=== PATIENT | male | born 1945 | race Caucasian/White ===

== ENCOUNTER 2016-10-27 08:20 | Day surgery (SDC) | payer MEDICARE, BC ==
[2016-10-22 15:00] VITALS: BMI 38.0
[~2016-10-27 08:20] MED LIST: LACTATED RINGERS 1,000 ML IV SCH
[2016-10-27 09:07] VITALS: TEMP 98.2
[2016-10-27] MEDS ORDERED: LIDOCAINE 1% 20 ML VIAL (10MG/ML) FOR IV START INTRADERMA ONE (09:07)
[2016-10-27] MEDS ORDERED: GLYCOPYRROLATE 0.2 MG/ML 2 ML VIAL ONE (09:48)
[2016-10-27] MEDS ORDERED: LIDOCAINE 1% INJ 10MG/ML (20 ML MDV) ONE (09:48)
[2016-10-27] MEDS ORDERED: PROPOFOL 10 MG/ML 20 ML VIAL IV ONE (09:48)
--- NOTE | 2016-10-27 10:20 | P.PCN ---
Date of Procedure: 10/27/16 Procedure(s) Performed: Procedure: Esophagogastroduodenoscopy and biopsy. Preoperative diagnosis: Chronic reflux symptoms, intermittent diarrhea and history of Prabhakar's esophagus. Postoperative diagnosis: 1. Long segment of Prabhakar's and hiatal hernia. 2. Gastritis. 3. Multiple biopsies obtained. Preparation and sedation: Was provided by anesthesia. Brief clinical history: The patient is a 70-year-old male with chronic reflux symptoms who has been symptomatic with heartburn. The patient has history of Prabhakar's esophagus and his last EGD was around 2 years ago. He has no dysphagia or other alarm symptoms. Procedure: With the patient on his left lateral decubitus position and after informed consent and adequate sedation, I passed the Olympus-GIF 160 video upper endoscope through the cricopharyngeus down the esophagus. The sravani-GE junction was around 31 cm from the incisors and the tubular esophagus continued for around 40 cm from the incisors. There was a sliding hiatal hernia around 2 cm in size then the endoscope was advanced into the stomach which was insufflated with air and inspected in detail including the retroflex view in the cardia. There was some mottling and erythema in the antrum but no ulcers or erosions. Pyloric channel, duodenal bulb, post bulbar area and descending duodenum showed minimal erythema. I obtained multiple biopsies from the duodenum in addition to biopsies from the antrum and the Prabhakar's esophagus and from the esophagus proximal to the GE junction then the endoscope was withdrawn. The patient tolerated the procedure well. Plan: The patient was reassured. Will await biopsy results. I anticipate repeating this exam in 1-2 years. He will follow up with you as planned.
[2016-10-27 10:28] VITALS: BP 100/78; PULSE 65; RESP 18
== END 2016-10-27 10:55 | disposition home or self-care (01) ==
LOC: ORWHC2ENDO 08:20
DX: K21.0 Gastro-esophageal reflux disease with esophagitis (principal); K22.70 Barrett's esophagus without dysplasia; K44.9 Diaphragmatic hernia without obstruction or gangrene; K29.50 Unspecified chronic gastritis without bleeding; I10 Essential (primary) hypertension; E78.5 Hyperlipidemia, unspecified; I25.10 Atherosclerotic heart disease of native coronary artery without angina pectoris; N28.9 Disorder of kidney and ureter, unspecified; Z79.899 Other long term (current) drug therapy; J44.9 Chronic obstructive pulmonary disease, unspecified; J45.909 Unspecified asthma, uncomplicated; M19.90 Unspecified osteoarthritis, unspecified site; G47.33 Obstructive sleep apnea (adult) (pediatric); Z95.1 Presence of aortocoronary bypass graft; Z88.8 Allergy status to other drugs, medicaments and biological substances
CPT/HCPCS: 88305; 88342; 43239; J2001; J2704; 99153

== ENCOUNTER 2019-06-17 08:24 | Day surgery (SDC) | payer MEDICARE, BC, OTHER ==
[2019-06-15 10:21] VITALS: BMI 36.9
[~2019-06-17 08:24] MED LIST changes: +LIDOCAINE 1% 20 ML VIAL (10MG/ML) FOR IV START INTRADERMA PRN
[2019-06-17 08:49] VITALS: TEMP 98.2
[2019-06-17] MEDS ORDERED: PROPOFOL 10 MG/ML 20 ML VIAL IV ONE (09:28)
[2019-06-17] MEDS ORDERED: LIDOCAINE 1% INJ 10MG/ML (20 ML MDV) ONE (09:28)
[2019-06-17 10:03] VITALS: BP 147/77; PULSE 79; RESP 16
--- NOTE | 2019-06-17 10:11 | P.PCN ---
Date of Procedure: 06/17/19 Procedure(s) Performed: BRIEF HISTORY: Patient is a 73-year-old, pleasant, white female, scheduled for an upper endoscopy as a part of evaluation of long-standing history of GERD of several years duration. His last upper endoscopy was done by Dr. Nam 2 years ago. He denies any symptoms.. PROCEDURE PERFORMED: Esophagogastroduodenoscopy With biopsy PREOPERATIVE DIAGNOSIS: Long-standing history of GERD/Prabhakar's esophagus IV sedation per anesthesia. PROCEDURE: After informed consent was obtained, the patient was brought into the endoscopy unit. IV sedation was administered by Anesthesia under continuous monitoring. Initially the Olympus GIF-140 video endoscope was inserted into the mouth. Esophagus intubated without any difficulty. It was gradually advanced into the stomach and duodenum and carefully examined. The bulb and the second part of the duodenum appeared normal. The scope at this time was withdrawn to the stomach, adequately insufflated with air, and upon careful examination, mucosa of the antrum, body, cardia and the fundus appeared normal. multiple small gastric polyps identified in the proximal body the stomach which were biopsied. The scope was then withdrawn into the esophagus. The GE junction was located at 43 cm from the incisors. Small sliding Hiatal hernia noted. There was long segment of Prabhakar's esophagus extending from 33-43 cm from the incisors and multiple biopsies were done from the Prabhakar's esophagus to rule out dysplasia. The rest of theesophagus appeared normal. There were no erosions or ulcerations seen and the patient tolerated the procedure well. IMPRESSION: 1. Long segment Prabhakar's esophagus extending from 33-43 cm from the incisors status post multiple biopsies to rule out dysplasia 2. Small hiatal hernia 3. Multiple small gastric polyps. RECOMMENDATIONS: The findings of this examination were discussed with the patient as well as her family. He was advised to follow with the biopsy results. If the biopsy does not have any evidence of dysplasia, he can have a repeat upper endoscopy in 2 years.
== END 2019-06-17 10:50 | disposition home or self-care (01) ==
LOC: ORWHC2ENDO 08:24
PROVIDERS: ATTEND Internal Medicine Gastroenterology
DX: K22.70 Barrett's esophagus without dysplasia (principal); K29.50 Unspecified chronic gastritis without bleeding; K31.7 Polyp of stomach and duodenum; K44.9 Diaphragmatic hernia without obstruction or gangrene; K21.9 Gastro-esophageal reflux disease without esophagitis; I25.10 Atherosclerotic heart disease of native coronary artery without angina pectoris; I12.9 Hypertensive chronic kidney disease with stage 1 through stage 4 chronic kidney disease, or unspecified chronic kidney disease; N18.9 Chronic kidney disease, unspecified; E78.5 Hyperlipidemia, unspecified; J44.9 Chronic obstructive pulmonary disease, unspecified; M10.9 Gout, unspecified; N40.0 Benign prostatic hyperplasia without lower urinary tract symptoms; G47.33 Obstructive sleep apnea (adult) (pediatric); Z88.8 Allergy status to other drugs, medicaments and biological substances; Z95.5 Presence of coronary angioplasty implant and graft; Z79.899 Other long term (current) drug therapy; Z95.828 Presence of other vascular implants and grafts
CPT/HCPCS: 88305; 43239; J2001; J2704

== ENCOUNTER → 2019-08-30 | Outpatient (CLI) | payer MEDICARE, BC, OTHER ==
--- NOTE | 2019-08-30 13:54 | CT ---
EXAMINATION TYPE: CT chest wo con DATE OF EXAM: 08/30/2019 COMPARISON: NONE HISTORY: Asthma, lung nodules and cough. CT DLP: 692.7 mGycm. Automated Exposure Control for Dose Reduction was Utilized. TECHNIQUE: CT scan of the thorax is performed without IV contrast. FINDINGS: LUNGS: There is 4 mm right upper lobe scarlike opacity or nodule axial image 16 corresponding to cuong nal image 62 and sagittal image 28. There is additional 3 mm right lower lobe nodule axial image 28. Some linear scarring is seen posterior and inferior to this. Some linear scarring posterior left lung base. There is focal reticulonodular pattern inferior after left upper lobe maximum of 17 extending superiorly axial image 10 for reference and anteriorly axial image 6 to a lesser degree. 2 to 3 mm le ft upper lobe nodule axial image 4 is noted. No pleural effusion or pneumothorax bilaterally. MEDIASTINUM: Lack of IV contrast is noted to limit evaluation for mediastinal and especially hilar ad enopathy. There are no definitive greater than 1 cm hilar or mediastinal lymph nodes. No cardiomega ly or pericardial effusion is seen. Bone artery calcification is noted which is noted marker for unde rlying coronary artery disease. OTHER: Exaggerated thoracic kyphosis with severe multilevel anterior spurring relative preservation o f disc space height, underlying DISH suspected. Underlying gynecomastia suspected subareolar region o nly partially imaged on the right. Cholecystectomy clips noted. Cortical thinning with simple appeari ng thin-walled cysts and visualized portion of both kidneys consistent with chronic medical renal dis ease. Bilateral atrophy present. Surgical clips near gastroesophageal junction extending into the upp er abdomen are present. IMPRESSION: Chronic changes with scattered small nodules. Reticulonodular opacities lateral left mid to upper lung could reflect acute or chronic etiology. Correlate clinically. No suspicious greater th an 5 mm pulmonary nodules are present.
== END | disposition home or self-care (01) ==
LOC: RADCTMAIN 13:18
PROVIDERS: ATTEND Internal Medicine Pulmonary Disease
DX: J45.50 Severe persistent asthma, uncomplicated (principal); G47.33 Obstructive sleep apnea (adult) (pediatric); R91.8 Other nonspecific abnormal finding of lung field; R05 Cough
CPT/HCPCS: 71250

== ENCOUNTER 2019-09-12 08:17 | Day surgery (SDC) | payer MEDICARE, BC, OTHER ==
[2019-09-05 15:16] VITALS: BMI 36.9
[2019-09-12 09:01] VITALS: TEMP 97.2
[2019-09-12] MEDS ORDERED: ePHEDrine SULFATE/0.9% NACL/PF 50 MG/5 ML SYRINGE IV ONE (09:12)
[2019-09-12] MEDS ORDERED: PROPOFOL 10 MG/ML 20 ML VIAL IV ONE (09:12)
[2019-09-12] MEDS ORDERED: LACTATED RINGERS 500 ML IV ONE (09:13)
--- NOTE | 2019-09-12 09:41 | P.PCN ---
Date of Procedure: 09/12/19 Description of Procedure: BRIEF HISTORY: Patient is a 73-year-old male presenting for outpatient colonoscopy after positive Cologard testing. Patient reports multiple colonoscopies in the past. He denies any change in bowel habits or family history of colon cancer. PROCEDURE PERFORMED: Colonoscopy with polypectomy. PREOPERATIVE DIAGNOSIS: Positive Cologard, last colonoscopy approximately 5 years ago per patient recollection. ESTIMATED BLOOD LOSS: Minimal. IV sedation per Anesthesia. PROCEDURE: After informed consent was obtained, the patient, was brought into the endoscopy unit. IV sedation was administered by Anesthesia under continuous monitoring. Digital rectal examination was normal. Initially the Olympus CF-190 flexible video colonoscope was then inserted in the rectum, gradually advanced into the cecum without any difficulty. Careful examination was performed as the scope was gradually being withdrawn. Ileocecal valve and the appendiceal orifice were visualized and appeared normal. Prep was excellent. Mucosa of the cecum, ascending colon, transverse colon, descending colon, sigmoid colon, and rectum appeared normal. Retroflexion was performed in the rectum and no lesions were seen low-grade internal hemorrhoids noted. Diminutive 3 mm sigmoid colon polyp removed with cold forceps. The patient tolerated the procedure well. IMPRESSION: Diminutive sigmoid polyp removed with cold forceps. Low-grade internal hemorrhoids. RECOMMENDATIONS: Findings of this examination were discussed with the patient and his . Okay to resume diet. Okay to resume medications. Would recommend repeat colonoscopy in 5 years if patient has not with stable.
[2019-09-12 10:10] VITALS: BP 109/52; PULSE 84; RESP 18
== END 2019-09-12 10:20 | disposition home or self-care (01) ==
LOC: ORWHC2ENDO 08:17
PROVIDERS: ATTEND Internal Medicine
DX: D12.5 Benign neoplasm of sigmoid colon (principal); K64.8 Other hemorrhoids; I10 Essential (primary) hypertension; I25.10 Atherosclerotic heart disease of native coronary artery without angina pectoris; J45.909 Unspecified asthma, uncomplicated; G47.33 Obstructive sleep apnea (adult) (pediatric); E78.5 Hyperlipidemia, unspecified; Z88.8 Allergy status to other drugs, medicaments and biological substances; Z79.51 Long term (current) use of inhaled steroids; Z79.899 Other long term (current) drug therapy; Z95.5 Presence of coronary angioplasty implant and graft; Z99.2 Dependence on renal dialysis; Z90.49 Acquired absence of other specified parts of digestive tract; Z98.890 Other specified postprocedural states
CPT/HCPCS: 88305; 45380; J2704

== ENCOUNTER 2019-11-03 02:32 | Inpatient (IN) | payer MEDICARE, BC, OTHER ==
[2019-11-03] MEDS ORDERED: FUROSEMIDE 10 MG/ML 4 ML VIAL ONE (04:05)
[2019-11-03 06:04] LABS: Albumin 3.9 g/dL (3.5-5.0); Calcium 9.2 mg/dL (8.4-10.2); Magnesium 1.9 mg/dL (1.6-2.3); Potassium 4.6 mmol/L (3.5-5.1); Total Bilirubin 0.5 mg/dL (0.2-1.3); Total Protein 7.6 g/dL (6.3-8.2)
[2019-11-03 06:06] LABS: Basophils % (A) 0 %; Eosinophils # (A) 0.1 k/uL (0-0.7); Eosinophils % (A) 1 %; HCT 32.3 % (39.0-53.0); HGB 10.6 gm/dL (13.0-17.5); INR 1.2 (<1.2); Lymphocytes # (A) 0.7 k/uL (1.0-4.8); Lymphocytes % (A) 4 %; MCH 31.1 pg (25.0-35.0); MCHC 32.9 g/dL (31.0-37.0); MCV 94.4 fL (80.0-100.0); Mean Platelet Volume 7.1; Monocytes % (A) 7 %; Neutrophils # (A) 13.2 k/uL (1.3-7.7); Neutrophils % (A) 87 %; Platelet Count 259 k/uL (150-450); Prothrombin Time 11.9 sec (9.0-12.0); RBC 3.42 m/uL (4.30-5.90); RDW 13.6 % (11.5-15.5); WBC 15.1 k/uL (3.8-10.6)
[2019-11-03] MEDS ORDERED: ACETAMINOPHEN TAB 325 MG TAB PO PRN (06:25)
[2019-11-03] MEDS ORDERED: MAG HYDROX/AL HYDROX/SIMETH 30 ML CUP PO PRN (06:26)
[2019-11-03] MEDS ORDERED: ONDANSETRON 4 MG/2 ML VIAL IVP PRN (06:26)
[2019-11-03] MEDS ORDERED: DOCUSATE 100 MG CAP PO PRN (06:27)
--- NOTE | 2019-11-03 06:39 | XR ---
EXAM: XR Chest, 2 Views CLINICAL HISTORY: SOB, LILI TECHNIQUE: Frontal and lateral views of the chest. COMPARISON: Chest x-ray dated 08/27/17 FINDINGS: Lungs: Diffuse airspace opacities which may represent pulmonary edema versus an infectious process. Pleural space: No pleural effusion or pneumothorax. Heart: Unremarkable. Mediastinum: Unremarkable. Bones/joints: Unremarkable. IMPRESSION: Diffuse airspace opacities which may represent pulmonary edema versus an infectious process.
[2019-11-03] MEDS ORDERED: LIDOCAINE-PRILOCAINE 2.5-2.5% CREAM 5 GM TUBE TOPICAL PRN (14:19)
[2019-11-03] MEDS ORDERED: traMADol-ACETAMINOP 37.5-325MG 1 EACH TAB PO PRN (14:19)
[2019-11-03] MEDS ORDERED: METOCLOPRAMIDE 5 MG TAB PO PRN (14:19)
[2019-11-03] MEDS ORDERED: ALBUTEROL NEBULIZED 2.5 MG/3 ML INHALATION PRN (14:19)
--- NOTE | 2019-11-03 14:27 | P.HPIM ---
History of Present Illness H&P Date: 11/03/19 Chief Complaint: Fluid overload This is a 73-year-old male patient of Dr. Kovacs with past medical history of coronary artery disease status post stents, hypertension, hyperlipidemia, COPD, osteoarthritis, benign prostatic hypertrophy, obstructive sleep apnea, basal cell skin cancer, squamous cell skin cancer, gout, ankylosing spondylosis, end-stage renal disease on hemodialysis Thursday, hiatal hernia status post Jerson fundoplication. Patient missed dialysis on Thursday as at the dialysis clinic was closed due to water supply issue. Patient states that he has been on dialysis since December 2017 and has never missed dialysis. His dry weight is 117 kg. Patient came into [facility] emergency center for evaluation. Vital signs stable with blood pressure 148/87, pulse ox 96% on 3 L nasal cannula, afebrile, heart rate 68. Lab work revealed WBC 15.1, hemoglobin 10.3, BUN 116, creatinine 10.32, glucose 137, troponin negative. Chest x-ray showed diffuse airspace opacities which may represent pulmonary edema versus infectious process. [facility] with [facility]. Patient is currently seen undergoing hemodialysis. Review of Systems Constitutional: Reports fatigue, Denies chills, Denies fever, Denies lethargy, Denies malaise, Denies poor appetite, Denies weight loss Eyes: denies blurred vision, denies pain Ears, nose, mouth and throat: Denies dysphagia, Denies headache, Denies nasal congestion, Denies nasal discharge, Denies sore throat, Denies vertigo Cardiovascular: Reports dyspnea on exertion, Reports shortness of breath, Denies chest pain, Denies decreased exercise tolerance, Denies syncope Respiratory: Reports dyspnea, Denies cough, Denies cough with sputum, Denies excessive sputum, Denies hemoptysis, Denies home oxygen, Denies respiratory infections, Denies wheezing Gastrointestinal: Denies abdominal pain, Denies diarrhea, Denies loss of appetite, Denies nausea, Denies vomiting Genitourinary: Denies dysuria, Denies urinary retention Musculoskeletal: Reports muscle weakness, Denies myalgias Integumentary: Denies pruritus, Denies rash, Denies wounds Neurological: Denies change in mentation, Denies change in speech, Denies numbness, Denies weakness Psychiatric: Denies anxiety, Denies depression Endocrine: Denies fatigue, Denies weight change Past Medical History Past Medical History: Asthma, Coronary Artery Disease (CAD), Cancer, Heart Failure, COPD, GERD/Reflux, Hearing Disorder / Deafness, Hyperlipidemia, Hypertension, Osteoarthritis (OA), Prostate Disorder, Renal Disease, Sleep Apnea/CPAP/BIPAP Additional Past Medical History / Comment(s): ESRD with hemodialysis on //Thu, anemia, BPH, bronchitis, chronic low back pain, ankylosing spondylosis, gout in ankles in past, concepcion's esophagus, colon polyp, hemorrhoids, behind L ear basal cell skin cancer with removal, L hand squamous cell skin cancer removal, JF with Bipap, bilateral tinnitis, CHF per 2017 m edical record but pt does not recall. History of Any Multi-Drug Resistant Organisms: None Reported Past Surgical History: Appendectomy, Cholecystectomy, Heart Catheterization, Heart Catheterization With Stent, Hernia Repair Additional Past Surgical History / Comment(s): Fistula L arm, EGDs, colonoscopies, abdominal hernia repair, jerson fundoplication, ruptured gallbladder with christelle/appy and piece of bowel removed, hemorrhoidectomy, behind L ear lesion removed and another from L hand, bilateral cataract removals/lens i mplants. Past Anesthesia/Blood Transfusion Reactions: No Reported Reaction Additional Past Anesthesia/Blood Transfusion Reaction / Comment(s): . Date of Last Stent Placement:: 2003 Smoking Status: Never smoker Additional Past Alcohol Use History / Comment(s): Patient is a lifelong nonsmoker, no marijuana, no illicit drug use, no alcohol use. Patient is and lives at home with his . 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 - Past Family History Mother Family Medical History: Cancer Additional Family Medical History / Comment(s): Mother at age 72 from BREAST CANCER Father Family Medical History: Myocardial Infarction ([place]) Additional Family Medical History / Comment(s): Father of a [place] at the age of 48 yrs. Sister(s) Family Medical History: Diabetes Mellitus Additional Family Medical History / Comment(s): Patient has one sister. Patient's son have any brothers. Patient has 2 children with no major medical problems. Medications and Allergies Home Medications Medication Instructions Recorded Confirmed Type Albuterol Inhaler [Ventolin Hfa 2 puff INHALATION RT-QID PRN 11/11/14 11/03/19 History Inhaler] Atorvastatin Calcium [Lipitor] 10 mg PO MOWEFR 11/11/14 11/03/19 History Dutasteride [Avodart] 0.5 mg PO DAILY 11/11/14 11/03/19 History Felodipine [Felodipine ER] 10 mg PO SUMOWEFR 11/11/14 11/03/19 History Montelukast [Singulair] 10 mg PO HS 11/11/14 11/03/19 History Multivitamin/Iron/Folic Acid 1 tab PO DAILY 11/11/14 11/03/19 History [Centrum Complete Multivit Tab] Beclomethasone Dipropionate [Qvar 2 puff INHALATION RT-BID 11/21/15 11/03/19 History 80 mcg/puff] Ergocalciferol [Vitamin D2 50,000 unit PO WE 11/21/15 11/03/19 History (DRISDOL)] Isosorbide Mononitrate ER [Imdur] 30 mg PO DAILY 11/21/15 11/03/19 History Torsemide [Demadex] 20 mg PO DAILY 11/21/15 11/03/19 History traMADol HCL/ACETAMINOPHEN 1 tab PO QID PRN 11/21/15 11/03/19 History [Ultracet 37.5-325] Febuxostat [Uloric] 80 mg PO DAILY 10/22/16 11/03/19 History Lansoprazole 30 mg PO DAILY 10/22/16 11/03/19 History Magnesium Oxide [Mag-Ox] 400 mg PO DAILY 08/27/17 11/03/19 History Metoclopramide [Reglan] 5 mg PO TID PRN 08/27/17 11/03/19 History Xolair 1 applic INJ Q30D 09/05/19 11/03/19 History Lidocaine-Prilocaine Cream [Emla 1 applic TOPICAL DAILY PRN 11/03/19 11/03/19 History Cream 2.5%/2.5%] Metoprolol Tartrate [Lopressor] 100 mg PO HS 11/03/19 11/03/19 History Mackenzie-Kayla 1 tab PO DAILY 11/03/19 11/03/19 History Sertraline [Zoloft] 50 mg PO DAILY 11/03/19 11/03/19 History Sevelamer [Renvela] 800 mg PO DAILY 11/03/19 11/03/19 History Allergies Allergy/AdvReac Type Severity Reaction Status Date / Time diphenhydramine HCl Allergy Confusion Verified 11/03/19 07:36 [From Benadryl] Physical Exam Vitals: Vital Signs Temp Pulse Resp BP Pulse Ox 11/03/19 12:40 98 F 66 20 140/67 11/03/19 08:00 97.6 F 68 18 148/87 96 Intake and Output 11/02/19 11/03/19 11/03/19 22:59 06:59 14:59 Output Total 4100 Balance -4100 Output: Urine 100 Hemodialysis 4000 Other: Weight 117.934 kg 111.1 kg Gen: This is a 73-year-old obese male. Patient's resting in bed and appears to be comfortable. He is currently undergoing hemodialysis. HEENT: Head is atraumatic, normocephalic. Pupils equal, round. Sclerae is anicteric. NECK: Supple. No JVD. No lymphadenopathy. No thyromegaly. LUNGS: Clear to auscultation. No wheezes or rhonchi. No intercostal retractions . HEART: Regular rate and rhythm. No murmur. ABDOMEN: Soft. Bowel sounds are present. No masses. No tenderness. EXTREMITIES: No pedal edema. No calf tenderness. NEUROLOGICAL: Patient is awake, alert and oriented x3. Cranial nerves 2 through 12 are grossly intact. Results CBC & Chem 7: 11/03/19 02:53 11/03/19 02:53 Labs: Abnormal Lab Results - Last 24 Hours (Table) 11/03/19 11/03/19 11/03/19 Range/Units 02:53 02:53 02:53 WBC 15.1 H (3.8-10.6) k/uL RBC 3.42 L (4.30-5.90) m/uL Hgb 10.6 L (13.0-17.5) gm/dL Hct 32.3 L (39.0-53.0) % Neutrophils # 13.2 H (1.3-7.7) k/uL Lymphocytes # 0.7 L (1.0-4.8) k/uL INR 1.2 H (<1.2) Sodium 136 L (137-145) mmol/L BUN 116 H* (9-20) mg/dL Creatinine 10.32 H* (0.66-1.25) mg/dL Glucose 137 H (74-99) mg/dL Thrombosis Risk Factor Assmnt - Choose All That Apply Any of the Below Risk Factors Present?: Yes Each Factor Represents 1 point: Abnormal pulmonary function (COPD), Obesity (BMI >25) Other Risk Factors: Yes Each Risk Factor Represents 2 Points: Malignancy Each Risk Factor Represents 3 Points: Age 75 years or older Other congenital or acquired thrombophilia - If yes, enter type in comment: No Thrombosis Risk Factor Assessment Total Risk Factor Score: 7 Thrombosis Risk Factor Assessment Level: High Risk Assessment and Plan Plan: 1. Fluid overload secondary to missed hemodialysis treatment for end-stage renal disease. Patient is receiving hemodialysis today. Consult with nephrology appreciated. Continue Demadex 20 mg daily. 2. Hypertension. Continue felodipine 10 mg on Thursday, Lopressor. 3. Hyperlipidemia. Continue Lipitor 10 mg Thursday. 4. History of coronary artery disease status post stents. Continue Lopressor 100 mg at bedtime, Imdur 30 mg daily, Lipitor. 5. Hyperphosphatemia. Continue Renvela 800 mg daily. 6. Mild persistent asthma. Continue Ventolin inhaler, Qvar or equivalent, Singulair 10 mg at bedtime. Patient is on Xolair injection once monthly. 7. Gastroesophageal reflux disease. Continue PPI. 8. DVT prophylaxis. Heparin subcu. Patient will be admitted to the hospital for a minimum of 2 night stay. Discharge plan: Home in the next 24-48 hours Impression and plan of care have been directed as dictated by the signing physician. Missy Manzano nurse practitioner acting as scribe for signing physician.
[2019-11-03] MEDS: SEVELAMER 800 MG TAB PO SCH (15:02)
[2019-11-03] MEDS: ISOSORBIDE MONONITRATE ER 30 MG TAB.ER.24H PO SCH (15:03)
[2019-11-03] MEDS: FLUTICASONE 110 MCG INHALER INHALATION SCH (19:19)
[2019-11-03] MEDS ORDERED: MONTELUKAST 10 MG TAB PO SCH (21:00)
[2019-11-03] MEDS ORDERED: METOPROLOL TARTRATE 50 MG TAB PO SCH (21:00)
[2019-11-03 22:20] VITALS: RESP 18
--- NOTE | 2019-11-03 23:23 | CONS ---
CONSULTATION REASON FOR CONSULT: End-stage renal disease. HISTORY OF PRESENT ILLNESS: Patient is a 73-year-old male with end-stage renal disease, on hemodialysis on a Thursday, , Thursday schedule. He was admitted to the hospital with complaints of shortness of breath. Patient did not get dialyzed on Thursday secondary to issues with water at the dialysis unit, and he developed worsening shortness of breath and therefore came into the hospital. He denied any fevers, chills, nausea, vomiting, abdominal pain or diarrhea or cough. PAST MEDICAL HISTORY: End-stage renal disease, anemia of chronic disease, CKD mineral bone disorder, hypertension, history of skin cancer, obstructive sleep apnea, BPH, COPD, coronary artery disease, status post coronary stents, hearing loss, hemorrhoids, history of basal cell skin cancer, status post removal. PAST SURGICAL HISTORY: Appendectomy, cholecystectomy, cardiac catheterization, hernia repair, fistula left arm, EGDs, colonoscopies, Jerson fundoplication, small bowel resection, cataract surgery. SOCIAL HISTORY: Negative for smoking, drug abuse or alcohol abuse. MEDICATIONS: Medications at home prior to admission included albuterol, Lipitor, Avodart, felodipine, Singulair, Qvar, Imdur, Demadex, lansoprazole, Uloric, magnesium, Reglan, Mackenzie Kayla, Lopressor Zoloft, Renvela. ALLERGIES: INCLUDE BENADRYL. PHYSICAL EXAMINATION: On examination, patient is comfortable, awake, not in any acute distress. Alert and oriented x3, much improved post dialysis. Blood pressure was 140/67, heart rate 66 per minute. Patient is afebrile. EXAMINATION OF THE HEART: S1 and S2. EXAMINATION OF LUNGS: Bilateral breath sounds are heard. ABDOMEN: Soft, non-tender. Examination of lower extremities shows trace edema bilaterally. 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 LABS: Sodium 136, potassium 4.6, BUN 116, serum creatinine 10.3, hemoglobin 10.6 g/dL. ASSESSMENT: 1. End-stage renal disease, on hemodialysis on a Thursday, , Thursday schedule. 2. Fluid overload, now improved. 3. Chronic kidney disease mineral bone disorder. 4. Hypertension, controlled. 5. Benign prostatic hypertrophy, maintained on Proscar. PLAN: Continue current phosphate binders. Patient will have his next treatment on Thursday. He does not need a treatment tomorrow. Thank you for this consultation. Will continue to follow the patient with you during his hospitalization. MMEVELYN / KATEN: [id number] /
[2019-11-04 05:06] VITALS: BP 137/61; PULSE 62; TEMP 97.4
[2019-11-04] MEDS: FLUTICASONE 110 MCG INHALER INHALATION SCH (07:15)
[2019-11-04] MEDS: SEVELAMER 800 MG TAB PO SCH (07:29)
[2019-11-04] MEDS: ISOSORBIDE MONONITRATE ER 30 MG TAB.ER.24H PO SCH (07:30)
[2019-11-04] MEDS ORDERED: TORSEMIDE 20 MG TAB PO SCH (09:00)
[2019-11-04] MEDS ORDERED: FINASTERIDE 5 MG TAB PO SCH (09:00)
[2019-11-04] MEDS ORDERED: SERTRALINE 50 MG TAB PO SCH (09:00)
[2019-11-04] MEDS ORDERED: amLODIPine 10 MG TAB PO SCH (09:00)
[2019-11-04] MEDS ORDERED: MULTIVITAMINS, THERA 1 EACH TAB PO SCH (09:00)
[2019-11-04] MEDS ORDERED: ALLOPURINOL 100 MG TAB PO SCH (09:00)
[2019-11-04] MEDS ORDERED: ATORVASTATIN 10 MG TAB PO SCH (09:00)
[2019-11-04] MEDS ORDERED: MAGNESIUM OXIDE 400 MG TAB PO SCH (09:00)
[2019-11-04] MEDS ORDERED: PANTOPRAZOLE 40 MG TABLET PO SCH (09:00)
--- NOTE | 2019-11-04 13:42 | P.DS ---
Providers Date of admission: 11/03/19 05:35 Expected date of discharge: 11/04/19 Attending physician: Carlos Lema Consults: 11/03/19 06:23 Consult Physician Urgent Consulting Provider: Ivy Chun Consult Reason/Comments: end stage renal disease, hemodialysis Do you want consulting provider notified?: Yes Placement Type Exists?: Yes Primary care physician: Jyotsna Kovacs [facility] Course: This is a 73-year-old male patient of Dr. Kovacs with past medical history of coronary artery disease status post stents, hypertension, hyperlipidemia, COPD, osteoarthritis, benign prostatic hypertrophy, obstructive sleep apnea, basal cell skin cancer, squamous cell skin cancer, gout, ankylosing spondylosis, end-stage renal disease on hemodialysis Thursday, hiatal hernia status post Jerson fundoplication. Patient missed dialysis on Thursday as at the dialysis clinic was closed due to water supply issue. Patient states that he has been on dialysis since December 2017 and has never missed dialysis. His dry weight is 117 kg. Patient came into [facility] emergency center for evaluation. Vital signs stable with blood pressure 148/87, pulse ox 96% on 3 L nasal cannula, afebrile, heart rate 68. Lab work revealed WBC 15.1, hemoglobin 10.3, BUN 116, creatinine 10.32, glucose 137, troponin negative. Chest x-ray showed diffuse airspace opacities which may represent pulmonary edema versus infectious process. Patient was admitted on the [facility] floor and consult with nephrology. Patient is currently seen undergoing hemodialysis. 11/04: Patient underwent hemodialysis yesterday and has been seen by nephrology. Patient to be on his normal schedule of Thursday. Patient denies having any shortness of breath at this time. He did have ambulatory pulse ox of 87%. Patient rest is at 93%. Patient to be ambulated and rechecked as patient has no shortness of breath at this time. No respiratory distress is noted. Doubt any need for home oxygen. Patient will be discharged home today in stable condition. Discharge diagnoses: 1. Fluid overload secondary to missed hemodialysis treatment for end-stage renal disease. 2. Hypertension. 3. Hyperlipidemia. 4. History of coronary artery disease status post stents. 5. Hyperphosphatemia. 6. Mild persistent asthma. 7. Gastroesophageal reflux disease. 8. No history of heart failure. Discharge plan: Home Impression and plan of care have been directed as dictated by the signing physician. Missy Manzano nurse practitioner acting as scribe for signing physician. Patient Condition at Discharge: Good Plan - Discharge Summary Discharge Rx Participant: No New Discharge Prescriptions: Continue Albuterol Inhaler [Ventolin Hfa Inhaler] 2 puff INHALATION RT-QID PRN PRN Reason: Shortness Of Breath Montelukast [Singulair] 10 mg PO HS Atorvastatin Calcium [Lipitor] 10 mg PO MOWEFR Dutasteride [Avodart] 0.5 mg PO DAILY Multivitamin/Iron/Folic Acid [Centrum Complete Multivit Tab] 1 tab PO DAILY Felodipine [Felodipine ER] 10 mg PO SUMOWEFR Beclomethasone Dipropionate [Qvar 80 mcg/puff] 2 puff INHALATION RT-BID traMADol HCL/ACETAMINOPHEN [Ultracet 37.5-325] 1 tab PO QID PRN PRN Reason: Pain Ergocalciferol [Vitamin D2 (DRISDOL)] 50,000 unit PO WE Torsemide [Demadex] 20 mg PO DAILY Isosorbide Mononitrate ER [Imdur] 30 mg PO DAILY Lansoprazole 30 mg PO DAILY Febuxostat [Uloric] 80 mg PO DAILY Magnesium Oxide [Mag-Ox] 400 mg PO DAILY Metoclopramide [Reglan] 5 mg PO TID PRN PRN Reason: Nausea Xolair 1 applic INJ Q30D Mackenzie-Kayla 1 tab PO DAILY Lidocaine-Prilocaine Cream [Emla Cream 2.5%/2.5%] 1 applic TOPICAL DAILY PRN PRN Reason: access site on dialysis days Sertraline [Zoloft] 50 mg PO DAILY Metoprolol Tartrate [Lopressor] 100 mg PO HS Sevelamer [Renvela] 800 mg PO DAILY Discharge Medication List Albuterol Inhaler [Ventolin Hfa Inhaler] 2 puff INHALATION RT-QID PRN 11/11/14 [History] Atorvastatin Calcium [Lipitor] 10 mg PO MOWEFR 11/11/14 [History] Dutasteride [Avodart] 0.5 mg PO DAILY 11/11/14 [History] Felodipine [Felodipine ER] 10 mg PO SUMOWEFR 11/11/14 [History] Montelukast [Singulair] 10 mg PO HS 11/11/14 [History] Multivitamin/Iron/Folic Acid [Centrum Complete Multivit Tab] 1 tab PO DAILY 11/11/14 [History] Beclomethasone Dipropionate [Qvar 80 mcg/puff] 2 puff INHALATION RT-BID 11/21/15 [History] Ergocalciferol [Vitamin D2 (DRISDOL)] 50,000 unit PO WE 11/21/15 [History] Isosorbide Mononitrate ER [Imdur] 30 mg PO DAILY 11/21/15 [History] Torsemide [Demadex] 20 mg PO DAILY 11/21/15 [History] traMADol HCL/ACETAMINOPHEN [Ultracet 37.5-325] 1 tab PO QID PRN 11/21/15 [History] Febuxostat [Uloric] 80 mg PO DAILY 10/22/16 [History] Lansoprazole 30 mg PO DAILY 10/22/16 [History] Magnesium Oxide [Mag-Ox] 400 mg PO DAILY 08/27/17 [History] Metoclopramide [Reglan] 5 mg PO TID PRN 08/27/17 [History] Xolair 1 applic INJ Q30D 09/05/19 [History] Lidocaine-Prilocaine Cream [Emla Cream 2.5%/2.5%] 1 applic TOPICAL DAILY PRN 11/03/19 [History] Metoprolol Tartrate [Lopressor] 100 mg PO HS 11/03/19 [History] Mackenzie-Kayla 1 tab PO DAILY 11/03/19 [History] Sertraline [Zoloft] 50 mg PO DAILY 11/03/19 [History] Sevelamer [Renvela] 800 mg PO DAILY 11/03/19 [History] Follow up Appointment(s)/Referral(s): Jyotsna Kovacs MD [Primary Care Provider] - 1 Week (Office will be in contact upon discharge to set up a follow up appointment) Patient Instructions/Handouts: Pulmonary Edema (DC), Chronic Kidney Disease (DC), Syncope in Older Adults (DC) Activity/Diet/Wound Care/Special Instructions: patient to do daily weight as ordered Discharge Disposition: HOME SELF-CARE
--- NOTE | 2019-11-04 16:57 | PN ---
PROGRESS NOTE Patient is seen for follow up of end-stage renal disease. He was admitted to the hospital with volume overload. This has now improved. The patient will be discharged today and he will follow up as an outpatient tomorrow for his regular treatment of hemodialysis. PHYSICAL EXAMINATION: On examination today, blood pressure is 137/61, heart rate 52 per minute, he is afebrile. The patient appears euvolemic. OVEREDGER exam is grossly intact. LABS: From yesterday, show potassium 4.6, sodium 136, hemoglobin 10.6. ASSESSMENT: 1. End-stage renal disease on hemodialysis on a Thursday, , Thursday schedule. 2. Volume overload, now improved. 3. Hypertension, controlled. PLAN: The patient can be discharged. Will follow up as outpatient tomorrow for hemodialysis. MMODL / IJN: [id number] /
[2019-11-09] MEDS ORDERED: ERGOCALCIFEROL 50,000 UNIT CAP PO SCH (09:00)
== END 2019-11-04 12:58 | disposition home or self-care (01) | DRG 640 ==
LOC: EC 02:32 → 5NMEDONC 05:35 → EC 05:41 → 5NMEDONC 06:35
PROVIDERS: ADMIT Internal Medicine Geriatric Medicine; ATTEND Internal Medicine Geriatric Medicine
PROC: 5A1D70Z Performance of Urinary Filtration, Intermittent, Less than 6 Hours Per Day (ICD-10-PCS; principal; 2019-11-03)
DX: E87.70 Fluid overload, unspecified (principal); N18.6 End stage renal disease; I12.0 Hypertensive chronic kidney disease with stage 5 chronic kidney disease or end stage renal disease; D63.1 Anemia in chronic kidney disease; E83.9 Disorder of mineral metabolism, unspecified; E83.39 Other disorders of phosphorus metabolism; N40.0 Benign prostatic hyperplasia without lower urinary tract symptoms; J44.9 Chronic obstructive pulmonary disease, unspecified; I25.10 Atherosclerotic heart disease of native coronary artery without angina pectoris; E78.5 Hyperlipidemia, unspecified; M47.9 Spondylosis, unspecified; M10.9 Gout, unspecified; K44.9 Diaphragmatic hernia without obstruction or gangrene; G47.33 Obstructive sleep apnea (adult) (pediatric); K21.9 Gastro-esophageal reflux disease without esophagitis; H91.90 Unspecified hearing loss, unspecified ear; K22.70 Barrett's esophagus without dysplasia; J45.30 Mild persistent asthma, uncomplicated; G89.29 Other chronic pain; M54.5 Low back pain; E66.9 Obesity, unspecified; Z68.35 Body mass index [BMI] 35.0-35.9, adult; Z79.899 Other long term (current) drug therapy; Z87.19 Personal history of other diseases of the digestive system; Z85.828 Personal history of other malignant neoplasm of skin; Z95.5 Presence of coronary angioplasty implant and graft; Z99.2 Dependence on renal dialysis; Z91.15 Patient's noncompliance with renal dialysis; Z90.49 Acquired absence of other specified parts of digestive tract; Z98.890 Other specified postprocedural states; Z98.42 Cataract extraction status, left eye; Z98.41 Cataract extraction status, right eye; Z96.1 Presence of intraocular lens; Z88.8 Allergy status to other drugs, medicaments and biological substances; Z80.3 Family history of malignant neoplasm of breast; Z82.49 Family history of ischemic heart disease and other diseases of the circulatory system; Z83.3 Family history of diabetes mellitus
CPT/HCPCS: 36415; 71046; 80053; 83735; 84484; 85025; 85610; 85730; 90935; 94640; 96374; 99285

== ENCOUNTER 2020-02-11 05:46 | Inpatient (IN) | payer MEDICARE, BC, OTHER ==
--- NOTE | 2020-02-11 06:00 | ED ---
SOB HPI - General Chief Complaint: Shortness of Breath Stated Complaint: Shortness of Breath Time Seen by Provider: 02/11/20 05:59 Source: patient, EMS Mode of arrival: EMS Limitations: no limitations - History of Present Illness Initial Comments: Sulaiman is a 74yo M history of end-stage renal disease on dialysis Thursday, patient also has sleep apnea and is supposed to wear a CPAP at night he sleeps sitting up in a chair. Patient is brought to the ER today for evaluation of respiratory distress. Patient sleeps in a chair in his bas ement, apparently is could hear him having agonal respirations from the floor and called 911. EMS arrived to find the patient unresponsive blue with agonal respirations. Oxygen saturations were in the 60s. He is immediately started on CPAP oxygen saturation improved, mental status improved in route to the hospital. On arrival patient's oxygen saturation is in the 90s he is awake alert and oriented to baseline. Patient states that he has not missed any dialysis last dialysis was he reports he took 1 L off at that time. He does admit that he took off his CPAP sometime during the night and hadn't been wearing it, EMS did report it was on the ground next to him. Patient denies any associated complaints. Denies any recent fevers coughs or shortness of breath. Does not believe he has been tested for rotavirus. - Related Data Home Medications Medication Instructions Recorded Confirmed Albuterol Inhaler (Mhu) [Ventolin 2 puff INHALATION RT-QID PRN 11/11/14 11/03/19 Hfa Inhaler (Mhu)] Atorvastatin Calcium [Lipitor] 10 mg PO MOWEFR 11/11/14 11/03/19 Dutasteride [Avodart] 0.5 mg PO DAILY 11/11/14 11/03/19 Felodipine [Felodipine ER] 10 mg PO SUMOWEFR 11/11/14 11/03/19 Montelukast [Singulair] 10 mg PO HS 11/11/14 11/03/19 Multivitamin/Iron/Folic Acid 1 tab PO DAILY 11/11/14 11/03/19 [Centrum Complete Multivit Tab] Beclomethasone Dipropionate [Qvar 2 puff INHALATION RT-BID 11/21/15 11/03/19 80 mcg/puff] Ergocalciferol [Vitamin D2 50,000 unit PO WE 11/21/15 11/03/19 (DRISDOL)] Isosorbide Mononitrate ER [Imdur] 30 mg PO DAILY 11/21/15 11/03/19 Torsemide [Demadex] 20 mg PO DAILY 11/21/15 11/03/19 traMADol HCL/ACETAMINOPHEN 1 tab PO QID PRN 11/21/15 11/03/19 [Ultracet 37.5-325] Febuxostat [Uloric] 80 mg PO DAILY 10/22/16 11/03/19 Lansoprazole 30 mg PO DAILY 10/22/16 11/03/19 Magnesium Oxide [Mag-Ox] 400 mg PO DAILY 08/27/17 11/03/19 Metoclopramide [Reglan] 5 mg PO TID PRN 08/27/17 11/03/19 Xolair 1 applic INJ Q30D 09/05/19 11/03/19 Lidocaine-Prilocaine Cream [Emla 1 applic TOPICAL DAILY PRN 11/03/19 11/03/19 Cream 2.5%/2.5%] Metoprolol Tartrate [Lopressor] 100 mg PO HS 11/03/19 11/03/19 Mackenzie-Kayla 1 tab PO DAILY 11/03/19 11/03/19 Sertraline [Zoloft] 50 mg PO DAILY 11/03/19 11/03/19 Sevelamer [Renvela] 800 mg PO DAILY 11/03/19 11/03/19 Allergies Allergy/AdvReac Type Severity Reaction Status Date / Time diphenhydramine HCl Allergy Confusion Verified 11/03/19 07:36 [From Benadryl] Review of Systems ROS Statement: Those systems with pertinent positive or pertinent negative responses have been documented in the HPI. ROS Other: All systems not noted in ROS Statement are negative. Past Medical History Past Medical History: Asthma, Coronary Artery Disease (CAD), Cancer, Heart Failure, COPD, GERD/Reflux, Hearing Disorder / Deafness, Hyperlipidemia, Hypertension, Osteoarthritis (OA), Prostate Disorder, Renal Disease, Sleep Apnea/CPAP/BIPAP Additional Past Medical History / Comment(s): ESRD with hemodialysis on //Thu, anemia, BPH, bronchitis, chronic low back pain, ankylosing spondylosis, gout in ankles in past, concepcion's esophagus, colon polyp, hemorrhoids, behind L ear basal cell skin cancer with removal, L hand squamous cell skin cancer removal, JF with Bipap, bilateral tinnitis, CHF per 2017 medical record but pt does not recall. History of Any Multi-Drug Resistant Organisms: None Reported Past Surgical History: Appendectomy, Cholecystectomy, Heart Catheterization, Heart Catheterization With Stent, Hernia Repair Additional Past Surgical History / Comment(s): Fistula L arm, EGDs, colonoscopies, abdominal hernia repair, ivette fundoplication, ruptured gallbladder with christelle/appy and piece of bowel removed, hemorrhoidectomy, behind L ear lesion removed and another from L hand, bilateral cataract removals/lens implants. Past Anesthesia/Blood Transfusion Reactions: No Reported Reaction Additional Past Anesthesia/Blood Transfusion Reaction / Comment(s): . Date of Last Stent Placement:: 2003 Past Psychological History: No Psychological Hx Reported Smoking Status: Never smoker Past Alcohol Use History: None Reported Past Drug Use History: None Reported - Past Family History Mother Family Medical History: Cancer Additional Family Medical History / Comment(s): Mother at age 72 from BREAST CANCER Father Family Medical History: Myocardial Infarction ([place]) Additional Family Medical History / Comment(s): Father of a [place] at the age of 48 yrs. Sister(s) Family Medical History: Diabetes Mellitus Additional Family Medical History / Comment(s): Patient has one sister. Patient's son have any brothers. Patient has 2 children with no major medical problems. General Exam - General Exam Comments Initial Comments: Physical Exam GENERAL: Chronically ill-appearing obese gentleman HENT: Normocephalic, Atraumatic. EYES: PERRL, EOMI PULMONARY: Decreased lung sounds at the bases bilaterally, tachypnea Perioral cyanosis CARDIOVASCULAR: There is a regular rate and rhythm without any murmurs gallops or rubs. ABDOMEN: Soft and nontender with normal bowel sounds. Obese SKIN: Pale : Deferred NEUROLOGIC: Patient is alert and oriented x3. Moving all extremities spontaneously MUSCULOSKELETAL: Normal extremities with adequate strength and full range of motion. No lower extremity swelling or edema. No calf tenderness. PSYCHIATRIC: Normal psychiatric evaluation. Limitations: no limitations Course Vital Signs 02/11/20 02/11/20 02/11/20 05:51 05:56 06:00 Temperature 99.2 F Pulse Rate 88 89 Respiratory 22 22 22 Rate Blood Pressure 163/80 148/82 O2 Sat by Pulse 97 98 Oximetry 02/11/20 06:30 Temperature Pulse Rate 90 Respiratory 18 Rate Blood Pressure 126/77 O2 Sat by Pulse 98 Oximetry Medical Decision Making - Medical Decision Making Patient was seen and evaluated immediately upon arrival from EMS Patient with moderate respiratory distress oxygenation is improved he still has mild cyanosis and tachypnea Patient was placed on BiPAP I suspect fluid overload based on patient's physical exam, x-rays and labs were obtained Patient care was discussed with his primary care physician Dr. adan who agrees with the plan for admission for respiratory distress needing BiPAP, recommends empiric treatment with antibiotics for possible underlying pneumonia, requests consult to ICU for admission, Care was discussed Dr. Mazariegos who agrees with the plan for admission of the patient to the ICU Patient care was discussed with Dr Grant we will plan for urgent dialysis Patient oxygenation improved patient stable on BiPAP Plan was discussed with Asians who confirms patient is full code agrees with plan for admission - Lab Data Result diagrams: 02/11/20 06:15 Lab Results 02/11/20 02/11/20 Range/Units 06:15 06:15 WBC 14.2 H (3.8-10.6) k/uL RBC 3.36 L (4.30-5.90) m/uL Hgb 10.0 L (13.0-17.5) gm/dL Hct 31.6 L (39.0-53.0) % MCV 94.0 (80.0-100.0) fL MCH 29.8 (25.0-35.0) pg MCHC 31.7 (31.0-37.0) g/dL RDW 15.4 (11.5-15.5) % Plt Count 250 (150-450) k/uL Neutrophils % 89 % Lymphocytes % 4 % Monocytes % 6 % Eosinophils % 1 % Basophils % 0 % Neutrophils # 12.6 H (1.3-7.7) k/uL Lymphocytes # 0.6 L (1.0-4.8) k/uL Monocytes # 0.8 (0-1.0) k/uL Eosinophils # 0.1 (0-0.7) k/uL Basophils # 0.1 (0-0.2) k/uL Hypochromasia Slight PT 11.8 (9.0-12.0) sec INR 1.2 H (<1.2) APTT 22.4 (22.0-30.0) sec Critical Care Time Critical Care Time: Yes Total Critical Care Time: 30 Critical Care Time: Critical Care Time 30 Critical care time was exclusive of separately billable procedures and treating other patients and teaching time. Critical care was necessary to treat or prevent imminent or life-threatening deterioration. Given the critical condition in which the patient arrived, the patient was immediately assessed by myself and the nurse, and cardiac monitoring initiated due to the potential for rapid decompensation of the patient's clinical con dition. During the course of the patients stay, I spent a considerable amount of time at the bedside performing serial re-evaluations of the patient's hemodynamic and clinical status because of the recognized potential threat to life or limb in this condition. I then had a chance to review not only all of the available current laboratory and radiographic studies obtained today, but I also reviewed old records available to me at the time. Additionally, any ancillary information available including administrative associate records were reviewed. Sequential vital signs were obtained. Disposition Clinical Impression: ESRD (end stage renal disease) on dialysis, Pulmonary edema, Respiratory distress Disposition: ADMITTED IP TO THIS HOSP Condition: Critical Is patient prescribed a controlled substance at d/c from ED?: No Referrals: Jyotsna Kovacs MD [Primary Care Provider] - 1-2 days
[2020-02-11 06:32] LABS: Basophils # (A) 0.1 k/uL (0-0.2); Basophils % (A) 0 %; Eosinophils # (A) 0.1 k/uL (0-0.7); Eosinophils % (A) 1 %; HCT 31.6 % (39.0-53.0); Hypochromasia Slight; Lymphocytes # (A) 0.6 k/uL (1.0-4.8); Lymphocytes % (A) 4 %; MCH 29.8 pg (25.0-35.0); MCHC 31.7 g/dL (31.0-37.0); Mean Platelet Volume 7.7; Monocytes # (A) 0.8 k/uL (0-1.0); Monocytes % (A) 6 %; Neutrophils # (A) 12.6 k/uL (1.3-7.7); Neutrophils % (A) 89 %; Platelet Count 250 k/uL (150-450); RBC 3.36 m/uL (4.30-5.90); RDW 15.4 % (11.5-15.5); WBC 14.2 k/uL (3.8-10.6)
[2020-02-11] MEDS ORDERED: LEVOFLOXACIN 750MG-D5W PMX 750 MG in DEXTROSE/WATER 1 150ML.BAG IVPB STA (06:45)
[2020-02-11] MEDS ORDERED: PIPERACILLIN-TAZOBACTAM 3.375 GM in SODIUM CHLORIDE 0.9% 100 ML IVPB STA (06:45)
[2020-02-11] MEDS ORDERED: NALOXONE 0.4 MG/ML 1 ML VIAL IV PRN (06:46)
[2020-02-11 07:02] LABS: INR 1.2 (<1.2); Partial Thromboplastin Time 22.4 sec (22.0-30.0); Prothrombin Time 11.8 sec (9.0-12.0)
[2020-02-11 07:47] LABS: Calcium 9.6 mg/dL (8.4-10.2); Magnesium 1.9 mg/dL (1.6-2.3); Potassium 4.2 mmol/L (3.5-5.1); Total Bilirubin 0.7 mg/dL (0.2-1.3); Total Protein 7.8 g/dL (6.3-8.2)
[2020-02-11 07:55] LABS: Glucose,Whole Blood 147 mg/dL (75-99)
--- NOTE | 2020-02-11 08:39 | P.NPCON ---
History of Present Illness - Reason for Consult end stage renal disease - Chief Complaint SOB obtundation - History of Present Illness A 74-year-old male, with end-stage renal failure on dialysis Thursday. He was brought by the EMS to the emergency room obtunded, with shortness of breath. Patient was unable to recall what happened at home therefore called his and spoke to her. Supposedly at about 5 in the morning he called her and was complaining of short of breath she could not remember whether he had the CPAP on. EMS was called and they reported a O2 saturation of 60%. He was brought to the emergency room. Currently at the time of this exam he is in ICU on nasal cannula oxygen. He is comfortable in awake alert oriented On anything as he could not recall what happened at home. Other than this he has good memory of his previous history. His been on dialysis for the last 2 years she has a left upper arm graft. He has a good appetite no chest pain no fever chills no nausea vomiting diarrhea no abdominal pain. More recently he has had multiple falls because of weakness but not dizziness. Is able to walk usually at home without any support. Supposedly he is on a CPAP without oxygen. He is on dialysis on Thursday, 4 hours Past Medical History Past Medical History: Asthma, Coronary Artery Disease (CAD), Cancer, Heart Failure, COPD, GERD/Reflux, Hearing Disorder / Deafness, Hyperlipidemia, Hypertension, Osteoarthritis (OA), Prostate Disorder, Renal Disease, Sleep Apnea/CPAP/BIPAP Additional Past Medical History / Comment(s): ESRD with hemodialysis on /Thu, anemia, BPH, bronchitis, chronic low back pain, ankylosing spondylosis, gout in ankles in past, concepcion's esophagus, colon polyp, hemorrhoids, behind L ear basal cell skin cancer with removal, L hand squamous cell skin cancer removal, JF with Bipap, bilateral tinnitis, CHF per 2017 medical record but pt does not recall. History of Any Multi-Drug Resistant Organisms: None Reported Past Surgical History: Appendectomy, Cholecystectomy, Heart Catheterization, Heart Catheterization With Stent, Hernia Repair Additional Past Surgical History / Comment(s): Fistula L arm, EGDs, colonoscopies, abdominal hernia repair, ivette fundoplication, ruptured gallbladder with christelle/appy and piece of bowel removed, hemorrhoidectomy, behind L ear lesion removed and another from L hand, bilateral cataract removals/lens implants. Past Anesthesia/Blood Transfusion Reactions: No Reported Reaction Additional Past Anesthesia/Blood Transfusion Reaction / Comment(s): . Date of Last Stent Placement:: 2003 Past Psychological History: No Psychological Hx Reported Smoking Status: Never smoker Past Alcohol Use History: None Reported Past Drug Use History: None Reported - Past Family History Mother Family Medical History: Cancer Additional Family Medical History / Comment(s): Mother at age 72 from BREAST CANCER Father Family Medical History: Myocardial Infarction ([place]) Additional Family Medical History / Comment(s): Father of a [place] at the age of 48 yrs. Sister(s) Family Medical History: Diabetes Mellitus Additional Family Medical History / Comment(s): Patient has one sister. Patient's son have any brothers. Patient has 2 children with no major medical problems. Medications and Allergies Home Medications Medication Instructions Recorded Confirmed Type Albuterol Inhaler (Mhu) [Ventolin 2 puff INHALATION RT-QID PRN 11/11/14 11/03/19 History Hfa Inhaler (Mhu)] Atorvastatin Calcium [Lipitor] 10 mg PO MOWEFR 11/11/14 11/03/19 History Dutasteride [Avodart] 0.5 mg PO DAILY 11/11/14 11/03/19 History Felodipine [Felodipine ER] 10 mg PO SUMOWEFR 11/11/14 11/03/19 History Montelukast [Singulair] 10 mg PO HS 11/11/14 11/03/19 History Multivitamin/Iron/Folic Acid 1 tab PO DAILY 11/11/14 11/03/19 History [Centrum Complete Multivit Tab] Beclomethasone Dipropionate [Qvar 2 puff INHALATION RT-BID 11/21/15 11/03/19 History 80 mcg/puff] Ergocalciferol [Vitamin D2 50,000 unit PO WE 11/21/15 11/03/19 History (DRISDOL)] Isosorbide Mononitrate ER [Imdur] 30 mg PO DAILY 11/21/15 11/03/19 History Torsemide [Demadex] 20 mg PO DAILY 11/21/15 11/03/19 History traMADol HCL/ACETAMINOPHEN 1 tab PO QID PRN 11/21/15 11/03/19 History [Ultracet 37.5-325] Febuxostat [Uloric] 80 mg PO DAILY 10/22/16 11/03/19 History Lansoprazole 30 mg PO DAILY 10/22/16 11/03/19 History Magnesium Oxide [Mag-Ox] 400 mg PO DAILY 08/27/17 11/03/19 History Metoclopramide [Reglan] 5 mg PO TID PRN 08/27/17 11/03/19 History Xolair 1 applic INJ Q30D 09/05/19 11/03/19 History Lidocaine-Prilocaine Cream [Emla 1 applic TOPICAL DAILY PRN 11/03/19 11/03/19 History Cream 2.5%/2.5%] Metoprolol Tartrate [Lopressor] 100 mg PO HS 11/03/19 11/03/19 History Mackenzie-Kayla 1 tab PO DAILY 11/03/19 11/03/19 History Sertraline [Zoloft] 50 mg PO DAILY 11/03/19 11/03/19 History Sevelamer [Renvela] 800 mg PO DAILY 11/03/19 11/03/19 History Allergies Allergy/AdvReac Type Severity Reaction Status Date / Time diphenhydramine HCl Allergy Confusion Verified 11/03/19 07:36 [From Benadryl] Physical Exam Vitals: Vital Signs Temp Pulse Resp BP Pulse Ox 02/11/20 08:02 99.2 F 78 18 122/63 95 02/11/20 07:58 78 18 122/63 95 02/11/20 07:20 78 18 122/63 95 02/11/20 06:30 90 18 126/77 98 02/11/20 06:00 89 22 148/82 98 02/11/20 05:56 22 02/11/20 05:51 99.2 F 88 22 163/80 97 Intake and Output 02/10/20 02/11/20 02/11/20 22:59 06:59 14:59 Other: Weight 108.862 kg On examination awake alert oriented 3 but cannot recall what happened at home. HEENT exam no JVP lymphadenopathy thyromegaly neck is supple no facial asymmetry Lungs are clear to auscultation good air entry bilaterally Heart sounds are unremarkable. He is in atrial fibrillation. Abdomen soft nontender no masses felt Extremity examination no edema Neurologically awake alert oriented 3 no asterixis Results - Lab Results Most recent lab results Calcium 9.6 mg/dL (8.4-10.2) 02/11/20 06:15 Magnesium 1.9 mg/dL (1.6-2.3) 02/11/20 06:15 20 06:15 02/11/20 06:15 Assessment and Plan Assessment: Impression 1. ESRD on dialysis Thursday. On dialysis for the last 3 years with Left upper arm graft 2. Admitted with shortness of breath, and obtundation transiently O2 saturation 60% presumably at home by the EMS. Uses CPAP with room air and might have come off. The gases not available. Troponin 0.037, normal electrolytes creatinine 5.68 glucose 22 lactic acid 1.9 3. History of COPD, sleep apnea on CPAP room air 4. History of atrial fibrillation 5. Anemia hemoglobin is 10 at target Recommendation 1. Will dialyze. A half Hours with a 3K bath 2.5 calcium, ultrafilter 2.5 L. 2. Patient will be discharged home after dialysis 3. Maintain Epogen 4000 units or Aranesp 40 g. 4. Monitor blood pressure Thank you for this consultation we'll continue to follow.
--- NOTE | 2020-02-11 08:55 | XR ---
EXAM: XR Chest, 1 View CLINICAL HISTORY: Reason: hypoxia TECHNIQUE: Frontal view of the chest. COMPARISON: FINDINGS: Lungs: Mild pulmonary edema. Probable atelectasis in both lower lobes. No definite airspace consolidation. Pleural space: Unremarkable. No pneumothorax. Heart: Cardiac silhouette is top normal. Mediastinum: No mediastinal widening or shift. Bones/joints: No acute osseous abnormality. IMPRESSION: Mild pulmonary edema with probable bilateral lower lobe atelectasis. No airspace consolidation. Findings may be associated with cardiac dysfunction or hypervolemia. Overall the pulmonary edema appears slightly improved when compared to the prior exam of October 2019.
[2020-02-11] MEDS ORDERED: traMADol-ACETAMINOP 37.5-325MG 1 EACH TAB PO PRN (10:06)
[2020-02-11] MEDS ORDERED: METOCLOPRAMIDE 5 MG TAB PO PRN (10:06)
--- NOTE | 2020-02-11 10:06 | P.HPIM ---
History of Present Illness H&P Date: 02/11/20 Chief Complaint: Acute hypoxemic respiratory failure due to pulmonary edema. This is a 74-year-old male one my patient with a previous medical history significant for hypertension and hypertensive cardiovascular disease, hyperlipidemia, insulin and Zestril hemodialysis Thursday and Thursday, history of asthma/COPD, history of CAD post-PCI, history of ankylosing spondylitis, obstructive sleep apnea on a CPAP, patient was supposed to go to dialysis today he went to bed last night and he woke up at around 3:00 in the morning his found him in agonal breathing and he was having his CPAP off she ended up calling 911 and the patient was transported on BiPAP into the emergency department at [facility] his chest x-ray showed pulmonary edema and the patient was admitted to the intensive care unit after he was placed on a BiPAP, he is currently being dialyzed in the intensive care unit, he denies any chest pain at this time he is complaining of some shortness breath, he has no fever or chills has no coughing he has no hemoptysis, he has no recent illness or recent travel or recent sick contacts. Patient was seen in consultation by Dr. Mazariegos from pulmonary and critical care, patient is downgraded to 2 L nasal cannula this time, is feeling much better is more awake and alert and he is being dialyzed at this point in time. He was seen in consultation by nephrology who will be seen in consultation by cardiology as well as Review of Systems Constitutional: Reports fatigue, Reports weakness, Denies anorexia, Denies chronic headaches Eyes: denies blurred vision, denies bulging eye, denies decreased vision Ears: bilateral: decreased hearing Ears, nose, mouth and throat: Denies dysphagia, Denies neck lump, Denies sore throat Cardiovascular: Reports decreased exercise tolerance, Reports shortness of breath, Denies chest pain, Denies leg edema, Denies lightheadedness, Denies rapid heart beat, Denies syncope Respiratory: Reports sleep apnea, Reports snoring, Denies congestion, Denies cough, Denies cough with sputum, Denies home oxygen, Denies wheezing Gastrointestinal: Reports loss of appetite, Denies abdominal pain, Denies bloating, Denies BRBPR, Denies heartburn, Denies melena, Denies nausea, Denies vomiting Genitourinary: Denies dysuria, Denies incontinence Musculoskeletal: Reports gait dysfunction Musculoskeletal: absent: ankle pain, ankle stiffness, ankle swelling, elbow pain, elbow stiffness, elbow swelling, foot pain, foot stiffness, foot swelling, hand pain, hand stiffness, hand swelling, hip pain, hip stiffness, hip swelling, knee pain, knee stiffness, knee swelling, shoulder pain, shoulder stiffness, shoulder swelling, wrist pain, wrist stiffness, wrist swelling Integumentary: Denies pruritus, Denies rash Neurological: Denies numbness, Denies weakness Psychiatric: Denies anxiety, Denies depression Endocrine: Denies fatigue, Denies weight change Past Medical History Past Medical History: Asthma, Coronary Artery Disease (CAD), Cancer, Heart Failure, COPD, GERD/Reflux, Hearing Disorder / Deafness, Hyperlipidemia, Hypertension, Osteoarthritis (OA), Prostate Disorder, Renal Disease, Sleep Apnea /CPAP/BIPAP Additional Past Medical History / Comment(s): ESRD with hemodialysis on //Thu, anemia, BPH, bronchitis, chronic low back pain, ankylosing spondylosis, gout in ankles in past, concepcion's esophagus, colon polyp, hemorrhoids, behind L ear basal cell skin cancer with removal, L hand squamous cell skin cancer removal, JF with Bipap, bilateral tinnitis, CHF per 2017 medical record but pt does not recall. History of Any Multi-Drug Resistant Organisms: None Reported Past Surgical History: Appendectomy, Cholecystectomy, Heart Catheterization, Heart Catheterization With Stent, Hernia Repair Additional Past Surgical History / Comment(s): Fistula L arm, EGDs, colonoscopies, abdominal hernia repair, ivette fundoplication, ruptured gallbladder with christelle/appy and piece of bowel removed, hemorrhoidectomy, behind L ear lesion removed and another from L hand, bilateral cataract removals/lens implants. Past Anesthesia/Blood Transfusion Reactions: No Reported Reaction Additional Past Anesthesia/Blood Transfusion Reaction / Comment(s): . Date of Last Stent Placement:: 2003 Past Psychological History: No Psychological Hx Reported Smoking Status: Never smoker Past Alcohol Use History: None Reported Past Drug Use History: None Reported - Past Family History Mother Family Medical History: Cancer Additional Family Medical History / Comment(s): Mother at age 72 from BREAST CANCER Father Family Medical History: Myocardial Infarction ([place]) Additional Family Medical History / Comment(s): Father of a [place] at the age of 48 yrs. Sister(s) Family Medical History: Diabetes Mellitus Additional Family Medical History / Comment(s): Patient has one sister. Patient's son have any brothers. Patient has 2 children with no major medical problems. Medications and Allergies Home Medications Medication Instructions Recorded Confirmed Type Atorvastatin Calcium [Lipitor] 10 mg PO MOWEFR 11/11/14 11/03/19 History Dutasteride [Avodart] 0.5 mg PO DAILY 11/11/14 11/03/19 History Felodipine [Felodipine ER] 10 mg PO SUMOWEFR 11/11/14 11/03/19 History Montelukast [Singulair] 10 mg PO HS 11/11/14 11/03/19 History Multivitamin/Iron/Folic Acid 1 tab PO DAILY 11/11/14 11/03/19 History [Centrum Complete Multivit Tab] Beclomethasone Dipropionate [Qvar 2 puff INHALATION RT-BID 11/21/15 11/03/19 History 80 mcg/puff] Ergocalciferol [Vitamin D2 50,000 unit PO WE 11/21/15 11/03/19 History (DRISDOL)] Isosorbide Mononitrate ER [Imdur] 30 mg PO DAILY 11/21/15 11/03/19 History Torsemide [Demadex] 20 mg PO DAILY 11/21/15 11/03/19 History traMADol HCL/ACETAMINOPHEN 1 tab PO QID PRN 11/21/15 11/03/19 History [Ultracet 37.5-325] Febuxostat [Uloric] 80 mg PO DAILY 10/22/16 11/03/19 History Lansoprazole 30 mg PO DAILY 10/22/16 11/03/19 History Magnesium Oxide [Mag-Ox] 400 mg PO DAILY 08/27/17 11/03/19 History Metoclopramide [Reglan] 5 mg PO TID PRN 08/27/17 11/03/19 History Xolair 1 applic INJ Q30D 09/05/19 11/03/19 History Lidocaine-Prilocaine Cream [Emla 1 applic TOPICAL DAILY PRN 11/03/19 11/03/19 History Cream 2.5%/2.5%] Metoprolol Tartrate [Lopressor] 100 mg PO HS 11/03/19 11/03/19 History Mackenzie-Kayla 1 tab PO DAILY 11/03/19 11/03/19 History Sevelamer [Renvela] 800 mg PO DAILY 11/03/19 11/03/19 History Albuterol Inhaler [Ventolin Hfa 2 puff INHALATION RT-QID 02/11/20 02/11/20 History Inhaler] Sertraline [Zoloft] 100 mg PO DAILY 02/11/20 02/11/20 History Allergies Allergy/AdvReac Type Severity Reaction Status Date / Time diphenhydramine HCl Allergy Confusion Verified 11/03/19 07:36 [From Benadryl] Physical Exam Vitals: Vital Signs Temp Pulse Resp BP Pulse Ox 02/11/20 09:00 65 20 148/76 94 L 02/11/20 08:30 76 13 147/69 93 L 02/11/20 08:02 99.2 F 78 18 122/63 95 02/11/20 08:00 99.9 F H 74 16 152/67 92 L 02/11/20 07:58 78 18 122/63 95 02/11/20 07:20 78 18 122/63 95 02/11/20 06:30 90 18 126/77 98 02/11/20 06:00 89 22 148/82 98 02/11/20 05:56 22 02/11/20 05:51 99.2 F 88 22 163/80 97 Intake and Output 02/10/20 02/11/20 02/11/20 22:59 06:59 14:59 Output Total 0 Balance 0 Output: Urine 0 Other: # Voids 0 Weight 108.862 kg HEENT: Head is atraumatic and percent, pupils were equal round reactive to light and accommodations, extraocular muscle movement intact, mucous membranes of the mouth are somewhat dry. Neck: Supple, no JVD, no carotid bruit. Chest: Decreased breath sounds at the bases, few rhonchi, minimal expiratory wheezes, no chest wall tenderness, no intercostal retractions. Heart: First heart sound is depressed, second heart sounds normal. Systolic ejection murmur 2/6 Located in the sternal border. Abdomen: Soft non tender and non distended positive bowel sounds negative, no hepatosplenomegaly. Extremities: There is no edema, no calf tenderness, dorsalis pedis +1 bilaterally. Neurologic examination: Patient is awake alert and oriented 3 cranial nerves III-12 appear to be grossly intact, muscle power 4 out of 5 in upper and lower extremities bilaterally there is no lateralization and no focal weakness. Results CBC & Chem 7: 02/11/20 06:15 02/11/20 06:15 Labs: Abnormal Lab Results - Last 24 Hours (Table) 02/11/20 02/11/20 02/11/20 Range/Units 06:15 06:15 06:15 WBC 14.2 H (3.8-10.6) k/uL RBC 3.36 L (4.30-5.90) m/uL Hgb 10.0 L (13.0-17.5) gm/dL Hct 31.6 L (39.0-53.0) % Neutrophils # 12.6 H (1.3-7.7) k/uL Lymphocytes # 0.6 L (1.0-4.8) k/uL INR 1.2 H (<1.2) BUN 41 H (9-20) mg/dL Creatinine 5.68 H (0.66-1.25) mg/dL Glucose 202 H (74-99) mg/dL POC Glucose (mg/dL) (75-99) mg/dL Troponin I (0.000-0.034) ng/mL 02/11/20 02/11/20 Range/Units 06:15 07:53 WBC (3.8-10.6) k/uL RBC (4.30-5.90) m/uL Hgb (13.0-17.5) gm/dL Hct (39.0-53.0) % Neutrophils # (1.3-7.7) k/uL Lymphocytes # (1.0-4.8) k/uL INR (<1.2) BUN (9-20) mg/dL Creatinine (0.66-1.25) mg/dL Glucose (74-99) mg/dL POC Glucose (mg/dL) 147 H (75-99) mg/dL Troponin I 0.037 H* (0.000-0.034) ng/mL Thrombosis Risk Factor Assmnt - DVT/VTE Prophylaxis DVT/VTE Prophylaxis: Pharmacologic Prophylaxis ordered, Mechanical Prophylaxis ordered Assessment and Plan Assessment: Assessment and plan: 1. Acute hypoxemic respiratory failure secondary to pulmonary edema. Patient was on BiPAP currently down to the emergency And will continue with dialysis as planned, monitor the patient intensive care unit for another 24 hours, continue nebulized treatment in the form of DuoNeb 3 mg nebulization 4 times every day, continue with Pulmicort 0.5 mg nebulization twice every day, continue patient on Zosyn and Levaquin and repeat portable chest x-ray in the next 24 hours. Pulmonary consultation, cardiology consultation, echocardiogram will be obtained. 2. End-stage renal disease on hemodialysis. Continue with dialysis as planned. Nephrology consultation appreciated. 3. CAD post-PCI. Continue to monitor the patient troponin 3 every 8 hours, maintain the patient on Lipitor 10 mg orally once every day, aspirin 81 mg once every day, metoprolol 100 mg orally once every day, isosorbide mononitrate 30 mg orally once every day. echocardiogram, cardiology evaluation. 4. Hypertension and hypertensive cardiovascular disease. Continue patient on metoprolol 100 mg orally once every day, felodipine 10 mg orally once every day. 5. Hyperlipidemia. Continue Lipitor 10 mg orally once every day. 6. Gout. Continue patient on Uloric 80 mg once every day. 7. Asthma/COPD. Continue patient on DuoNeb 3 mg nebulization 4 times every day, Pulmicort 0.5 mg nebulization twice every day, continue montelukast 10 mg orally once every day, patient used to get Xolair injections once every month. 8. Obesity with obstructive sleep apnea. Continue patient on CPAP. 9. GERD with Concepcion's esophagus. Continue lansoprazole 30 mg orally once every day. 10. For vitamin D deficiency. Continue vitamin D to 50,000 units once every week. 11. Depression. Continue sertraline 50 mg orally once every day. 12. Ankylosing spondylitis. Continue patient on Ultracet as needed. 13. DVT prophylaxis. Heparin 5000 units subcutaneous every 8 hours. 14. GI prophylaxis. Continue patient on PPI. 15. Admit to inpatient. Estimate a length of stay 2 midnights. 16. Patient is full code.
[2020-02-11] MEDS: IPRATROPIUM-ALBUTEROL 3 ML NEB INHALATION SCH ×3 (11:28→21:35)
--- NOTE | 2020-02-11 11:33 | P.CNPUL ---
History of Present Illness Consult date: 02/11/20 Reason for consult: dyspnea History of present illness: This is a 74-year-old male patient who has an incisional disease on hemodialysis 3 times a week, TTS, who came in around 3:00 this morning with increased shortness of breath and he was quite hypoxic. His found him to struggle with his breathing and she activated EMS and are about the patient was placed on CPAP for respiratory support. At the time of his arrival to the emergency [facility], the patient was still on CPAP. Noninvasive Positive Pressure Ventilator was utilized for respiratory support. Chest x-ray showed pulmonary edema. Nephrology was informed and the patient got transferred to the intensive care unit and he was started on hemodialysis. Currently is on 2 L of oxygen by nasal cannula. He is awake and alert and is following commands and answering questions. No chest pain. No angina. No palpitation. No chest pain. No significant swelling in lower extremities. Denies being noncompliant with fluid intake. Denies being noncompliant with hemodialysis. In fact today is his regular hemodialysis today. He is not known to have any history of congestion heart failure. He has severe bout of asthma which has been managed with various medications including anti-IgE/Xolair therapy. He has coronary artery disease and he has undergone previous PCI and he has also history of obstructive sleep apnea maintained on CPAP therapy and he has hypertension and hyperlipidemia and diabetes mellitus and he also has history of ankylosing spondylitis. No focal neurological deficits for now. No fever. No chills. Review of Systems Constitutional: Reports fatigue, Reports weakness, Denies anorexia, Denies chronic headaches Eyes: denies blurred vision, denies bulging eye, denies decreased vision Ears: bilateral: decreased hearing Ears, nose, mouth and throat: Denies dysphagia, Denies neck lump, Denies sore throat Cardiovascular: Reports decreased exercise tolerance, Reports shortness of breath, Denies chest pain, Denies leg edema, Denies lightheadedness, Denies rapid heart beat, Denies syncope Respiratory: Reports sleep apnea, Reports snoring, Denies congestion, Denies cough, Denies cough with sputum, Denies home oxygen, Denies wheezing Gastrointestinal: Reports loss of appetite, Denies abdominal pain, Denies bloating, Denies BRBPR, Denies heartburn, Denies melena, Denies nausea, Denies vomiting Genitourinary: Denies dysuria, Denies incontinence Musculoskeletal: Reports gait dysfunction Musculoskeletal: absent: ankle pain, ankle stiffness, ankle swelling, elbow pain, elbow stiffness, elbow swelling, foot pain, foot stiffness, foot swelling, hand pain, hand stiffness, hand swelling, hip pain, hip stiffness, hip swelling, knee pain, knee stiffness, knee swelling, shoulder pain, shoulder stiffness, shoulder swelling, wrist pain, wrist stiffness, wrist swelling Integumentary: Denies pruritus, Denies rash Neurological: Denies numbness, Denies weakness Psychiatric: Denies anxiety, Denies depression Endocrine: Denies fatigue, Denies weight change Past Medical History Past Medical History: Asthma, Coronary Artery Disease (CAD), Cancer, Heart Failure, COPD, GERD/Reflux, Hearing Disorder / Deafness, Hyperlipidemia, Hypertension, Osteoarthritis (OA), Prostate Disorder, Renal Disease, Sleep Apnea/CPAP/BIPAP Additional Past Medical History / Comment(s): ESRD with hemodialysis on //Thu, anemia, BPH, bronchitis, chronic low back pain, ankylosing spondylosis, gout in ankles in past, concepcion's esophagus, colon polyp, hemorrhoids, behind L ear basal cell skin cancer with removal, L hand squamous cell skin cancer removal, JF with Bipap, bilateral tinnitis, CHF per 2017 medic al record but pt does not recall. History of Any Multi-Drug Resistant Organisms: None Reported Past Surgical History: Appendectomy, Cholecystectomy, Heart Catheterization, Heart Catheterization With Stent, Hernia Repair Additional Past Surgical History / Comment(s): Fistula L arm, EGDs, colonoscopies, abdominal hernia repair, ivette fundoplication, ruptured gallbladder with christelle/appy and piece of bowel removed, hemorrhoidectomy, behind L ear lesion removed and another from L hand, bilateral cataract removals/lens implants. Past Anesthesia/Blood Transfusion Reactions: No Reported Reaction Additional Past Anesthesia/Blood Transfusion Reaction / Comment(s): . Date of Last Stent Placement:: 2003 Past Psychological History: No Psychological Hx Reported Smoking Status: Never smoker Past Alcohol Use History: None Reported Past Drug Use History: None Reported - Past Family History Mother Family Medical History: Cancer Additional Family Medical History / Comment(s): Mother at age 72 from BREAST CANCER Father Family Medical History: Myocardial Infarction ([place]) Additional Family Medical History / Comment(s): Father of a [place] at the age of 48 yrs. Sister(s) Family Medical History: Diabetes Mellitus Additional Family Medical History / Comment(s): Patient has one sister. Patient's son have any brothers. Patient has 2 children with no major medical problems. Medications and Allergies Home Medications Medication Instructions Recorded Confirmed Type Atorvastatin Calcium [Lipitor] 10 mg PO MOWEFR 11/11/14 02/11/20 History Dutasteride [Avodart] 0.5 mg PO DAILY 11/11/14 02/11/20 History Felodipine [Felodipine ER] 10 mg PO SUMOWEFR 11/11/14 02/11/20 History Montelukast [Singulair] 10 mg PO HS 11/11/14 02/11/20 History Multivitamin/Iron/Folic Acid 1 tab PO DAILY 11/11/14 02/11/20 History [Centrum Complete Multivit Tab] Beclomethasone Dipropionate [Qvar 2 puff INHALATION RT-BID 11/21/15 02/11/20 History 80 mcg/puff] Ergocalciferol [Vitamin D2 50,000 unit PO WE 11/21/15 02/11/20 History (DRISDOL)] Isosorbide Mononitrate ER [Imdur] 30 mg PO DAILY 11/21/15 02/11/20 History Torsemide [Demadex] 20 mg PO DAILY 11/21/15 02/11/20 History traMADol HCL/ACETAMINOPHEN 2 tab PO Q6H PRN 11/21/15 02/11/20 History [Ultracet 37.5-325] Febuxostat [Uloric] 80 mg PO DAILY 10/22/16 02/11/20 History Lansoprazole 30 mg PO DAILY 10/22/16 02/11/20 History Magnesium Oxide [Mag-Ox] 400 mg PO DAILY 08/27/17 02/11/20 History Metoclopramide [Reglan] 5 mg PO TID PRN 08/27/17 02/11/20 History Xolair 1 applic INJ Q30D 09/05/19 02/11/20 History Lidocaine-Prilocaine Cream [Emla 1 applic TOPICAL DAILY PRN 11/03/19 02/11/20 History Cream 2.5%/2.5%] Metoprolol Tartrate [Lopressor] 100 mg PO DAILY 11/03/19 02/11/20 History Mackenzie-Kayla 1 tab PO DAILY 11/03/19 02/11/20 History Sevelamer [Renvela] 800 mg PO BID-W/MEALS 11/03/19 02/11/20 History Albuterol Inhaler [Ventolin Hfa 2 puff INHALATION RT-QID 02/11/20 02/11/20 History Inhaler] Sertraline [Zoloft] 100 mg PO DAILY 02/11/20 02/11/20 History Allergies Allergy/AdvReac Type Severity Reaction Status Date / Time diphenhydramine HCl Allergy Confusion Verified 11/03/19 07:36 [From Benadryl] Physical Exam Vitals: Vital Signs Temp Pulse Resp BP Pulse Ox 02/11/20 11:00 61 22 140/68 96 02/11/20 10:30 65 24 138/79 96 02/11/20 10:00 63 22 141/74 95 02/11/20 09:30 66 16 155/70 95 02/11/20 09:00 65 20 148/76 94 L 02/11/20 08:30 76 13 147/69 93 L 02/11/20 08:02 99.2 F 78 18 122/63 95 02/11/20 08:00 99.9 F H 74 16 152/67 92 L 02/11/20 07:58 78 18 122/63 95 02/11/20 07:20 78 18 122/63 95 02/11/20 06:30 90 18 126/77 98 02/11/20 06:00 89 22 148/82 98 02/11/20 05:56 22 02/11/20 05:51 99.2 F 88 22 163/80 97 Intake and Output 02/10/20 02/11/20 02/11/20 22:59 06:59 14:59 Output Total 0 Balance 0 Output: Urine 0 Other: # Voids 0 Weight 108.862 kg 108.862 kg Gen. appearance, comfortable likely distress on 2 L of oxygen by nasal cannula. Is able to speak of. This is without any major difficulties. Head exam was generally normal. There was no scleral icterus or corneal arcus. Mucous membranes were moist. Neck was supple and without jugular venous distension, thyromegaly, or carotid bruits. Carotids were easily palpable bilaterally. There was no adenopathy. Lungs sounds are diminished and there are some crackles in lung bases bilaterally. No wheezes or rhonchi. Cardiac exam revealed the PMI to be normally situated and sized. The rhythm was regular and no extrasystoles were noted during several minutes of auscultation. The first and second heart sounds were normal and physiologic splitting of the second heart sound was noted. There were no murmurs, rubs, clicks, or gallops. Abdominal exam revealed normal bowel sounds. The abdomen was soft, non-tender, and without masses, organomegaly, or appreciable enlargement of the abdominal aorta. Extremities revealed an AV fistula in the left upper extremity which is quite functional for which the patient is undergoing dialysis. No significant edema in lower extremities bilaterally. Examination of the skin revealed no evidence of significant rashes, suspicious appearing nevi or other concerning lesions. Neurologically the patient is awake and alert and there is no focal neurological deficits. There is some mild muscle power weakness which is global in all 4 extremities. Results - Laboratory Findings CBC and BMP: 02/11/20 06:15 02/11/20 06:15 PT/INR, D-dimer PT 11.8 sec (9.0-12.0) 02/11/20 06:15 INR 1.2 (<1.2) H 02/11/20 06:15 Abnormal lab findings: Abnormal Labs 02/11/20 02/11/20 02/11/20 06:15 06:15 06:15 WBC 14.2 H RBC 3.36 L Hgb 10.0 L Hct 31.6 L Neutrophils # 12.6 H Lymphocytes # 0.6 L INR 1.2 H BUN 41 H Creatinine 5.68 H Glucose 202 H POC Glucose (mg/dL) Troponin I 02/11/20 02/11/20 06:15 07:53 WBC RBC Hgb Hct Neutrophils # Lymphocytes # INR BUN Creatinine Glucose POC Glucose (mg/dL) 147 H Troponin I 0.037 H* Assessment and Plan Plan: 1 acute hypoxic respiratory failure secondary to pulmonary edema/fluid overload. The patient was treated with noninvasive positive pressure ventilator and the patient is currently undergoing hemodialysis. Shortness of breath improved. Oxidation improved. Currently down to 2 L about 2 by nasal cannula. Pneumonia is doubtful. Chest x-ray is consistent with pulmonary edema. Echocardiogram will be obtained. 2 shortness of breath secondary to above, improving 3 dialysis-dependent renal failure, undergoing dialysis 3 times a week, TTS 3 an AV fistula in left upper extremity 4 coronary artery disease with previous PCI 5 hypertension 6 hyperlipidemia 7 history of COPD/bronchial asthma the patient has been maintained on a combination of Pulmicort Respules, Singulair and antiIgE treatment on outpatient basis 8 obesity with a BMI of 35.4 9 acid reflux 10 ankylosis spondylitis 11 history of depression Plan Proceed with hemodialysis with a goal of 3 L of ultrafiltration Monitor the chest x-ray findings Monitor the oxygenation which is supposed improved further with hemodialysis Nephrology is on the case Resume home medications Obtain an echocardiogram We'll continue to follow
--- NOTE | 2020-02-11 16:00 | ECHOF ---
Referral Reason:CHF MEASUREMENTS -------- HEIGHT: 172.7 cm WEIGHT: 108.9 kg BP: 150/71 IVSd: 1.5 cm (0.6 - 1.1) LVIDd: 5.0 cm (3.9 - 5.3) LVPWd: 1.6 cm (0.6 - 1.1) IVSs: 2.1 cm LVIDs: 2.8 cm LVPWs: 1.8 cm LA Diam: 3.7 cm (2.7 - 3.8) RVIDd: 3.6 cm (< 3.3) Ao Diam: 3.6 cm (2.0 - 3.7) AV Cusp: 2.2 cm (1.5 - 2.6) EPSS: 0.3 cm MV E Mic: 1.07 m/s MV DecT: 278 ms MV A Mic: 0.68 m/s MV E/A Ratio: 1.59 RAP: 5.00 mmHg RVSP: 29.40 mmHg MV EF SLOPE: 64.82 mm/s (70 - 150) MV EXCURSION: 16.79 mm (> 18.000) FINDINGS -------- Sinus rhythm. This was a technically difficult study with suboptimal views. The left ventricular size is normal. There is moderate concentric left ventricular hypertrophy. O verall left ventricular systolic function is normal with, an EF between 55 - 60 %. The right ventricle is mildly enlarged. The left atrial size is normal. The right atrium is normal in size. 5.0mg of Lumason was utilized for enhancement of images Interatrial and interventricular septum intact. The aortic valve is trileaflet and appears structurally normal. Mild mitral annular calcification present. Mild tricuspid regurgitation present. Right ventricular systolic pressure is normal at < 35 mmHg. The pulmonic valve was not well visualized. The aortic root size is normal. Normal inferior vena cava with normal inspiratory collapse consistent with estimated right atrial pre ssure of 5 mmHg. There is no pericardial effusion. CONCLUSIONS -------- 1. Sinus rhythm. 2. This was a technically difficult study with suboptimal views. 3. The left ventricular size is normal. 4. There is moderate concentric left ventricular hypertrophy. 5. Overall left ventricular systolic function is normal with, an EF between 55 - 60 %. 6. The right ventricle is mildly enlarged. 7. The left atrial size is normal. 8. The right atrium is normal in size. 9. 5.0mg of Lumason was utilized for enhancement of images 10. Interatrial and interventricular septum intact. 11. The aortic valve is trileaflet and appears structurally normal. 12. Mild mitral annular calcification present. 13. Mild tricuspid regurgitation present. 14. Right ventricular systolic pressure is normal at < 35 mmHg. 15. The pulmonic valve was not well visualized. 16. The aortic root size is normal. 17. Normal inferior vena cava with normal inspiratory collapse consistent with estimated right atrial pressure of 5 mmHg. 18. There is no pericardial effusion. [employer]: Nori Moody RDCS
[2020-02-11] MEDS: SEVELAMER 800 MG TAB PO SCH (17:37)
[2020-02-11] MEDS: HEPARIN SODIUM,PORCINE 5,000 UNIT/ML 1 ML VIAL SQ SCH (17:37)
[2020-02-11] MEDS: MONTELUKAST 10 MG TAB PO SCH (20:36)
[2020-02-11] MEDS: BUDESONIDE 0.5 MG/2 ML NEBU INHALATION SCH (21:35)
[2020-02-12] MEDS: HEPARIN SODIUM,PORCINE 5,000 UNIT/ML 1 ML VIAL SQ SCH ×4 (00:06→23:44)
[2020-02-12 05:28] LABS: Basophils % (A) 1 %; Eosinophils # (A) 0.2 k/uL (0-0.7); Eosinophils % (A) 2 %; HCT 31.1 % (39.0-53.0); HGB 9.9 gm/dL (13.0-17.5); Hypochromasia Moderate; Lymphocytes # (A) 1.3 k/uL (1.0-4.8); Lymphocytes % (A) 16 %; MCH 30.5 pg (25.0-35.0); MCHC 31.7 g/dL (31.0-37.0); Mean Platelet Volume 7.1; Monocytes # (A) 0.7 k/uL (0-1.0); Monocytes % (A) 8 %; Neutrophils # (A) 6.1 k/uL (1.3-7.7); Neutrophils % (A) 71 %; Platelet Count 223 k/uL (150-450); RBC 3.24 m/uL (4.30-5.90); RDW 15.5 % (11.5-15.5); WBC 8.6 k/uL (3.8-10.6)
[2020-02-12 05:47] LABS: Albumin 3.7 g/dL (3.5-5.0); Calcium 9.8 mg/dL (8.4-10.2); Magnesium 2.1 mg/dL (1.6-2.3); Potassium 3.9 mmol/L (3.5-5.1); Total Bilirubin 0.6 mg/dL (0.2-1.3); Total Protein 7.6 g/dL (6.3-8.2)
[2020-02-12] MEDS: SEVELAMER 800 MG TAB PO SCH ×2 (07:11→17:06)
[2020-02-12] MEDS: IPRATROPIUM-ALBUTEROL 3 ML NEB INHALATION SCH ×4 (07:50→20:02)
[2020-02-12] MEDS: BUDESONIDE 0.5 MG/2 ML NEBU INHALATION SCH ×2 (07:50→20:02)
[2020-02-12] MEDS: ALLOPURINOL 100 MG TAB PO SCH (09:21)
[2020-02-12] MEDS: amLODIPine 10 MG TAB PO SCH (09:22)
[2020-02-12] MEDS: FINASTERIDE 5 MG TAB PO SCH (09:22)
[2020-02-12] MEDS: MAGNESIUM OXIDE 400 MG TAB PO SCH (09:22)
[2020-02-12] MEDS: PANTOPRAZOLE 40 MG TABLET PO SCH (09:22)
[2020-02-12] MEDS: METOPROLOL TARTRATE 50 MG TAB PO SCH (09:22)
[2020-02-12] MEDS: MULTIVITAMINS, THERA 1 EACH TAB PO SCH (09:22)
[2020-02-12] MEDS: TORSEMIDE 20 MG TAB PO SCH (09:23)
[2020-02-12] MEDS: SERTRALINE 100 MG TAB PO SCH (09:23)
[2020-02-12] MEDS: NON FORMULARY DRUG (Rena-Vite 1 TAB) PO SCH (09:23)
[2020-02-12] MEDS: ISOSORBIDE MONONITRATE ER 30 MG TAB.ER.24H PO SCH (09:27)
--- NOTE | 2020-02-12 10:47 | P.PN ---
Subjective Progress Note Date: 02/12/20 This is a 74-year-old male one my patient with a previous medical history significant for hypertension and hypertensive cardiovascular disease, hyperlipidemia, insulin and Zestril hemodialysis Thursday and Thursday, history of asthma/COPD, history of CAD post-PCI, history of ankylosing s pondylitis, obstructive sleep apnea on a CPAP, patient was supposed to go to dialysis today he went to bed last night and he woke up at around 3:00 in the morning his found him in agonal breathing and he was having his CPAP off she ended up calling 911 and the patient was transported on BiPAP into the emergency department at [facility] his chest x-ray showed pulmonary edema and the patient was admitted to the intensive care unit after he was placed on a BiPAP, he is currently being dialyzed in the intensive care unit, he denies any chest pain at this time he is complaining of some shortness breath, he has no fever or chills has no coughing he has no hemoptysis, he has no recent illness or recent travel or recent sick contacts. Patient was seen in consultation by Dr. Mazariegos from pulmonary and critical care, patient is downgraded to 2 L nasal cannula this time, is feeling much better is more awake and alert and he is being dialyzed at this point in time. He was seen in consultation by nephrology who will be seen in consultation by cardiology as well as 02/11: Patient sitting up in bed in no apparent distress, he is feeling better he denies any chest pain, or shortness breath, he has not been seen by physical therapy yet he would be evaluated for possible subacute rehabilitation. Patient denies any abdominal pain he has not had any bowel movement yet he his appetite is pretty good is not requiring any oxygen at this time he was dialyzed yesterday. Objective - Vital Signs Vital signs: Vital Signs Temp 98 F 02/12/20 08:00 Pulse 64 02/12/20 08:09 Resp 18 02/12/20 08:00 BP 132/74 02/12/20 08:00 Pulse Ox 96 02/12/20 08:00 Intake & Output 02/11/20 02/12/20 02/12/20 18:59 06:59 18:59 Intake Total 500 Output Total 3000 Balance -3000 500 Weight 108.862 kg 111.3 kg Intake: Oral 500 Output: Urine 0 Hemodialysis 3000 Other: # Voids 0 0 - Exam Review of Systems Constitutional: Reports fatigue, Reports weakness, Denies anorexia, Denies chron ic headaches Eyes: denies blurred vision, denies bulging eye, denies decreased vision Ears: bilateral: decreased hearing Ears, nose, mouth and throat: Denies dysphagia, Denies neck lump, Denies sore throat Cardiovascular: Reports decreased exercise tolerance, Reports shortness of breath, Denies chest pain, Denies leg edema, Denies lightheadedness, Denies rapid heart beat, Denies syncope Respiratory: Reports sleep apnea, Reports snoring, Denies congestion, Denies cough, Denies cough with sputum, Denies home oxygen, Denies wheezing Gastrointestinal: Reports loss of appetite, Denies abdominal pain, Denies bloating, Denies BRBPR, Denies heartburn, Denies melena, Denies nausea, Denies vomiting Genitourinary: Denies dysuria, Denies incontinence Musculoskeletal: Reports gait dysfunction Musculoskeletal: absent: ankle pain, ankle stiffness, ankle swelling, elbow pain, elbow stiffness, elbow swelling, foot pain, foot stiffness, foot swelling, hand pain, hand stiffness, hand swelling, hip pain, hip stiffness, hip swelling, knee pain, knee stiffness, knee swelling, shoulder pain, shoulder stiffness, shoulder swelling, wrist pain, wrist stiffness, wrist swelling Integumentary: Denies pruritus, Denies rash Neurological: Denies numbness, Denies weakness Psychiatric: Denies anxiety, Denies depression Endocrine: Denies fatigue, Denies weight change HEENT: Head is atraumatic and percent, pupils were equal round reactive to light and accommodations, extraocular muscle movement intact, mucous membranes of the mouth are somewhat dry. Neck: Supple, no JVD, no carotid bruit. Chest: Decreased breath sounds at the bases, few rhonchi, minimal expiratory wheezes, no chest wall tenderness, no intercostal retractions. Heart: First heart sound is depressed, second heart sounds normal. Systolic ejection murmur 2/6 Located in the sternal border. Abdomen: Soft non tender and non distended positive bowel sounds negative, no hepatosplenomegaly. Extremities: There is no edema, no calf tenderness, dorsalis pedis +1 bilaterally. Neurologic examination: Patient is awake alert and oriented 3 cranial nerves III-12 appear to be grossly intact, muscle power 4 out of 5 in upper and lower extremities bilaterally there is no lateralization and no focal weakness. - Labs CBC & Chem 7: 02/12/20 04:58 02/12/20 04:58 Labs: Abnormal Lab Results - Last 24 Hours (Table) 02/12/20 02/12/20 Range/Units 04:58 04:58 RBC 3.24 L (4.30-5.90) m/uL Hgb 9.9 L (13.0-17.5) gm/dL Hct 31.1 L (39.0-53.0) % Chloride 97 L (98-107) mmol/L BUN 32 H (9-20) mg/dL Creatinine 5.33 H (0.66-1.25) mg/dL Glucose 118 H (74-99) mg/dL Microbiology - Last 24 Hours (Table) 02/11/20 06:15 Blood Culture - Preliminary Blood No Growth after 24 hours Assessment and Plan Assessment: Assessment and plan: 1. Acute hypoxemic respiratory failure secondary to pulmonary edema. Continue patient on torsemide 20 mg orally once every day, continue with metoprolol 100 mg orally once every day, echocardiogram was reviewed and showed ejection fraction of 55-60% with trace tricuspid regurgitation without any wall motion abnormalities. 2. End-stage renal disease on hemodialysis. Continue with dialysis as planned. Nephrology consultation appreciated. 3. CAD post-PCI. We will continue metoprolol 100 mg orally once every day, aspirin 81 mg once every day, Lipitor 10 mg orally once every day. 4. Hypertension and hypertensive cardiovascular disease. Continue patient on metoprolol 100 mg orally once every day, felodipine 10 mg orally once every day. 5. Hyperlipidemia. Continue Lipitor 10 mg orally once every day. 6. Gout. Continue patient on Uloric 80 mg once every day. 7. Asthma/COPD. Continue patient on DuoNeb 3 mg nebulization 4 times every day, Pulmicort 0.5 mg nebulization twice every day, continue montelukast 10 mg orally once every day, patient used to get Xolair injections once every month. 8. Obesity with obstructive sleep apnea. Continue patient on CPAP. 9. GERD with Prabhakar's esophagus. Continue lansoprazole 30 mg orally once every day. 10. For vitamin D deficiency. Continue vitamin D to 50,000 units once every week. 11. Depression. Continue sertraline 50 mg orally once every day. 12. Ankylosing spondylitis. Continue patient on Ultracet as needed. 13. DVT prophylaxis. Heparin 5000 units subcutaneous every 8 hours. 14. GI prophylaxis. Continue patient on PPI. 15. PT evaluation. For possible subacute rehabilitation. 16. Patient can be moved to the stepdown unit.
--- NOTE | 2020-02-12 11:42 | P.PN ---
Subjective Progress Note Date: 02/12/20 On today's evaluation of 02/12/2020, the patient is doing well. No specific complaints. Dialysis was done yesterday. A total of 3 L was removed. Overall poor status is improved. The patient can be weaned down to a room air oxygen. Overnight, he was given BiPAP pressure of 12/6 cm of water knowing that he utilizes a CPAP machine at home. Our hospital BiPAP machine was utilized overnight. No altered mentation. No cough or sputum production. No fever or chills. No nausea or vomiting. No other complaints otherwise for now and the patient is quite stable. His count is at 8.6 with a hemoglobin of 9.9. The BUN is a 32 with a creatinine of 5.3. Objective - Vital Signs Vital signs: Vital Signs Temp 98 F 02/12/20 08:00 Pulse 64 02/12/20 08:09 Resp 18 02/12/20 08:00 BP 132/74 02/12/20 08:00 Pulse Ox 96 02/12/20 08:00 Intake & Output 02/11/20 02/12/20 02/12/20 18:59 06:59 18:59 Intake Total 500 Output Total 3000 Balance -3000 500 Weight 108.862 kg 111.3 kg Intake: Oral 500 Output: Urine 0 Hemodialysis 3000 Other: # Voids 0 0 - Exam Gen. appearance, comfortable likely distress on 2 L of oxygen by nasal cannula. Is able to speak of. This is without any major difficulties. Head exam was generally normal. There was no scleral icterus or corneal arcus. Mucous membranes were moist. Neck was supple and without jugular venous distension, thyromegaly, or carotid bruits. Carotids were easily palpable bilaterally. There was no adenopathy. Lungs sounds are diminished and there are some crackles in lung bases bilaterally. No wheezes or rhonchi. Cardiac exam revealed the PMI to be normally situated and sized. The rhythm was regular and no extrasystoles were noted during several minutes of auscultation. The first and second heart sounds were normal and physiologic splitting of the second heart sound was noted. There were no murmurs, rubs, clicks, or gallops. Abdominal exam revealed normal bowel sounds. The abdomen was soft, non-tender, and without masses, organomegaly, or appreciable enlargement of the abdominal aorta. Extremities revealed an AV fistula in the left upper extremity which is quite functional for which the patient is undergoing dialysis. No significant edema in lower extremities bilaterally. Examination of the skin revealed no evidence of significant rashes, suspicious appearing nevi or other concerning lesions. Neurologically the patient is awake and alert and there is no focal neurological deficits. There is some mild muscle power weakness which is global in all 4 ex tremities. - Labs CBC & Chem 7: 02/12/20 04:58 02/12/20 04:58 Labs: Abnormal Lab Results - Last 24 Hours (Table) 02/12/20 02/12/20 02/12/20 Range/Units 04:58 04:58 04:58 RBC 3.24 L (4.30-5.90) m/uL Hgb 9.9 L (13.0-17.5) gm/dL Hct 31.1 L (39.0-53.0) % Chloride 97 L (98-107) mmol/L BUN 32 H (9-20) mg/dL Creatinine 5.33 H (0.66-1.25) mg/dL Glucose 118 H (74-99) mg/dL Troponin I 0.420 H* (0.000-0.034) ng/mL Microbiology - Last 24 Hours (Table) 02/11/20 06:15 Blood Culture - Preliminary Blood No Growth after 24 hours Assessment and Plan Plan: 1 acute hypoxic respiratory failure secondary to pulmonary edema/fluid overload , improved with dialysis and the patient is currently weaned down to room air oxygen. 2 shortness of breath secondary to above, recovered 3 dialysis-dependent renal failure, undergoing dialysis 3 times a week, TTS through a AV fistula in left upper extremity 4 coronary artery disease with previous PCI 5 hypertension 6 hyperlipidemia 7 history of COPD/bronchial asthma the patient has been maintained on a combination of Pulmicort Respules, Singulair and antiIgE treatment on outpatient basis 8 obesity with a BMI of 35.4 9 acid reflux 10 ankylosis spondylitis 11 history of depression Plan Clinically improved. Dialysis as recommended by nephrology. Echocardiogram showed a preserved LV function with an ejection fraction of 55- 60% without any segmental wall motion abnormalities The patient is being weaned down to room air oxygen All medications have been resumed Overnight CPAP/BiPAP Can be transferred to a medical floor, possible subacute rehabilitation
[2020-02-12] MEDS ORDERED: ACETAMINOPHEN TAB 325 MG TAB PO PRN (13:50)
--- NOTE | 2020-02-12 13:50 | P.CRDCN ---
History of Present Illness History of present illness: This is Dr. Yi dictating a consult on this patient The patient was interviewed and examined IMPRESSION / ASSESSMENT: Acute hypoxic respiratory failure secondary to fluid overload He underwent hemodialysis and positive pressure ventilation noninvasively Dialysis dependent chronic renal failure Coronary artery disease status post PCI in the past Hypertension Dyslipidemia Obesity Borderline abnormal troponins of 0.03 and 0.4 in the setting of severe hypoxemia PLAN: 2-D echo as already done. Shows normal LV function Continue home medications for now patient is stable HPI Patient brought in with respiratory distress He was having agonal respirations and 911 was called When EMS arrived he was unresponsive, blue with agonal respirations Oxygen saturation 60s When I saw him he was alert awake oriented and doing quite well He took off his CPAP mask sometime during the night and has not been wearing it and EMS did find it on the ground next to his bed This morning he denies any chest discomfort dizziness lightheadedness or palpitations. He is noted recollection of the events He looks well ROS: No fever chills or rigors, no cough, phlegm or expectoration, no nausea, vomiting or diarrhea, no hematuria, dysuria, no musculoskeletal complaints, no strokes or seizures, no skin lesions. EXAMINATION: Blood pressure 132/74 mmHg pulse rate is in the 60s and 70s, afe brile Breath sounds are reduced bilaterally at this time rhonchi no crackles Normal heart sounds Abdomen soft REVIEW OF LABS, ECG & MEDICAL DATA Past history of coronary artery disease obstructive sleep apnea end-stage renal disease on dialysis Twelve-lead ECG shows sinus rhythm 90 beats a minute left bundle branch block pattern Left frontal systolic function between 50-60% Mildly enlarged right ventricle Past Medical History Past Medical History: Asthma, Coronary Artery Disease (CAD), Cancer, Heart Failure, COPD, GERD/Reflux, Hearing Disorder / Deafness, Hyperlipidemia, Hypertension, Osteoarthritis (OA), Prostate Disorder, Renal Disease, Sleep Apnea/CPAP/BIPAP Additional Past Medical History / Comment(s): ESRD with hemodialysis on //Thu, anemia, BPH, bronchitis, chronic low back pain, ankylosing spondyl osis, gout in ankles in past, concepcion's esophagus, colon polyp, hemorrhoids, behind L ear basal cell skin cancer with removal, L hand squamous cell skin cancer removal, JF with Bipap, bilateral tinnitis, CHF per 2017 medical record but pt does not recall. History of Any Multi-Drug Resistant Organisms: None Reported Past Surgical History: Appendectomy, Cholecystectomy, Heart Catheterization, Heart Catheterization With Stent, Hernia Repair Additional Past Surgical History / Comment(s): Fistula L arm, EGDs, colonoscopies, abdominal hernia repair, ivette fundoplication, ruptured gallbladder with christelle/appy and piece of bowel removed, hemorrhoidectomy, behind L ear lesion removed and another from L hand, bilateral cataract removals/lens implants. Past Anesthesia/Blood Transfusion Reactions: No Reported Reaction Additional Past Anesthesia/Blood Transfusion Reaction / Comment(s): . Date of Last Stent Placement:: 2003 Past Psychological History: No Psychological Hx Reported Smoking Status: Never smoker Past Alcohol Use History: None Reported Past Drug Use History: None Reported - Past Family History Mother Family Medical History: Cancer Additional Family Medical History / Comment(s): Mother at age 72 from BREAST CANCER Father Family Medical History: Myocardial Infarction (ND) Additional Family Medical History / Comment(s): Father of a ND at the age of 48 yrs. Sister(s) Family Medical History: Diabetes Mellitus Additional Family Medical History / Comment(s): Patient has one sister. Patient's son have any brothers. Patient has 2 children with no major medical problems. Medications and Allergies Home Medications Medication Instructions Recorded Confirmed Type Atorvastatin Calcium [Lipitor] 10 mg PO [id number]/14 02/11/20 History Dutasteride [Avodart] 0.5 mg PO DAILY 11/11/14 02/11/20 History Felodipine [Felodipine ER] 10 mg PO SUMOWEFR 11/11/14 02/11/20 History Montelukast [Singulair] 10 mg PO 11/11/14 02/11/20 History Multivitamin/Iron/Folic Acid 1 tab PO DAILY 11/11/14 02/11/20 History [Centrum Complete Multivit Tab] Beclomethasone Dipropionate [Qvar 2 puff INHALATION RT-BID 11/21/15 02/11/20 History 80 mcg/puff] Ergocalciferol [Vitamin D2 50,000 unit PO WE 11/21/15 02/11/20 History (DRISDOL)] Isosorbide Mononitrate ER [Imdur] 30 mg PO DAILY 11/21/15 02/11/20 History Torsemide [Demadex] 20 mg PO DAILY 11/21/15 02/11/20 History traMADol HCL/ACETAMINOPHEN 2 tab PO Q6H PRN 11/21/15 02/11/20 History [Ultracet 37.5-325] Febuxostat [Uloric] 80 mg PO DAILY 10/22/16 02/11/20 History Lansoprazole 30 mg PO DAILY 10/22/16 02/11/20 History Magnesium Oxide [Mag-Ox] 400 mg PO DAILY 08/27/17 02/11/20 History Metoclopramide [Reglan] 5 mg PO TID PRN 08/27/17 02/11/20 History Xolair 1 applic INJ Q30D 09/05/19 02/11/20 History Lidocaine-Prilocaine Cream [Emla 1 applic TOPICAL DAILY PRN 11/03/19 02/11/20 History Cream 2.5%/2.5%] Metoprolol Tartrate [Lopressor] 100 mg PO DAILY 11/03/19 02/11/20 History Mackenzie-Kayla 1 tab PO DAILY 11/03/19 02/11/20 History Sevelamer [Renvela] 800 mg PO BID-W/MEALS 11/03/19 02/11/20 History Albuterol Inhaler [Ventolin Hfa 2 puff INHALATION RT-QID 02/11/20 02/11/20 Hi story Inhaler] Sertraline [Zoloft] 100 mg PO DAILY 02/11/20 02/11/20 History Allergies Allergy/AdvReac Type Severity Reaction Status Date / Time diphenhydramine HCl Allergy Confusion Verified 11/03/19 07:36 [From Junie] Physical Exam Vitals: Vital Signs Temp Pulse Resp BP Pulse Ox 02/12/20 12:00 60 18 148/66 92 L 02/12/20 11:42 62 02/12/20 08:09 64 02/12/20 08:00 98 F 70 18 132/74 96 02/12/20 00:00 98.3 F 63 18 142/68 98 02/11/20 22:00 98 02/11/20 21:53 61 02/11/20 21:35 63 02/11/20 20:00 96 02/11/20 18:00 96 02/11/20 16:00 13 95 02/11/20 15:28 61 02/11/20 15:23 65 02/11/20 15:04 95 02/11/20 15:00 64 13 129/55 96 02/11/20 14:30 65 17 129/55 96 02/11/20 14:00 63 22 140/66 Intake and Output 02/11/20 02/12/20 02/12/20 22:59 06:59 14:59 Intake Total 500 Output Total 0 Balance 500 Intake: Oral 500 Output: Urine 0 Other: # Voids 0 0 Weight 111.3 kg Results 02/12/20 04:58 02/12/20 04:58 Cardiac Enzymes 02/12/20 02/12/20 Range/Units 04:58 04:58 AST 19 (17-59) U/L Troponin I 0.420 H* (0.000-0.034) ng/mL CBC 02/12/20 Range/Units 04:58 WBC 8.6 (3.8-10.6) k/uL RBC 3.24 L (4.30-5.90) m/uL Hgb 9.9 L (13.0-17.5) gm/dL Hct 31.1 L (39.0-53.0) % Plt Count 223 (150-450) k/uL Comprehensive Metabolic Panel 02/12/20 Range/Units 04:58 Sodium 137 (137-145) mmol/L Potassium 3.9 (3.5-5.1) mmol/L Chloride 97 L (98-107) mmol/L Carbon Dioxide 29 (22-30) mmol/L BUN 32 H (9-20) mg/dL Creatinine 5.33 H (0.66-1.25) mg/dL Glucose 118 H (74-99) mg/dL Calcium 9.8 (8.4-10.2) mg/dL AST 19 (17-59) U/L ALT 15 (4-49) U/L Alkaline Phosphatase 92 (38-126) U/L Total Protein 7.6 (6.3-8.2) g/dL Albumin 3.7 (3.5-5.0) g/dL Current Medications Generic Name Dose Route Start Last Admin Trade Name Freq PRN Reason Stop Dose Admin Albuterol/Ipratropium 3 ml 02/11/20 12:00 02/12/20 11:42 Duoneb 0.5 Mg-3 Mg/3 Ml Soln INHALATION 3 ml RT-QID SHANTAL Administration Allopurinol 200 mg 02/12/20 09:00 02/12/20 09:21 Zyloprim PO 200 mg DAILY SHANTAL Administration Amlodipine Besylate 10 mg 02/12/20 09:00 02/12/20 09:22 Norvasc PO 10 mg SuMoWeFr SHANTAL Administration Atorvastatin Calcium 10 mg 02/13/20 21:00 Lipitor PO MOWEFR SHANTAL Budesonide 0.5 mg 02/11/20 20:00 02/12/20 07:50 Pulmicort INHALATION 0.5 mg RT-BID SHANTAL Administration Ergocalciferol 50,000 unit 02/15/20 09:00 Vitamin D2 PO WE [facility] Finasteride 5 mg 02/12/20 09:00 02/12/20 09:22 Proscar PO 5 mg DAILY SHANTAL Administration Heparin Sodium (Porcine) 5,000 unit 02/11/20 16:00 02/12/20 09:22 Heparin SQ 5,000 unit Q8HR [facility] Administration Isosorbide Mononitrate 30 mg 02/12/20 09:00 02/12/20 09:27 Imdur PO 30 mg DAILY [facility] Administration Magnesium Oxide 400 mg 02/12/20 09:00 02/12/20 09:22 Mag-Ox PO 400 mg DAILY [facility] Administration Metoclopramide HCl 5 mg 02/11/20 10:06 Reglan PO TID PRN Nausea Metoprolol Tartrate 100 mg 02/12/20 09:00 02/12/20 09:22 Lopressor PO 100 mg DAILY [facility] Administration Montelukast Sodium 10 mg 02/11/20 21:00 02/11/20 20:36 Singulair PO 10 mg HS [facility] Administration Multivitamins 1 each 02/12/20 09:00 02/12/20 09:22 Theragran PO 1 each DAILY [facility] Administration Naloxone HCl 0.2 mg 02/11/20 06:46 Narcan IV Q2M PRN Opioid Reversal Non-Formulary Medication 1 tab 02/12/20 09:00 02/12/20 09:23 Mackenzie-Kayla PO Not Given DAILY [facility] Pantoprazole Sodium 40 mg 02/12/20 09:00 02/12/20 09:22 Protonix PO 40 mg DAILY [facility] Administration Sertraline HCl 100 mg 02/12/20 09:00 02/12/20 09:23 Zoloft PO 100 mg DAILY SHANTAL Administration Sevelamer Carbonate 800 mg 02/11/20 17:30 02/12/20 07:11 Renvela PO 800 mg BID-W/MEALS SHANTAL Administration Torsemide 20 mg 02/12/20 09:00 02/12/20 09:23 Demadex PO 20 mg DAILY SHANTAL Administration Tramadol/Acetaminophen 2 each 02/11/20 10:06 Ultracet PO Q6H PRN Pain Intake and Output 02/11/20 02/12/20 02/12/20 22:59 06:59 14:59 Intake Total 500 Output Total 0 Balance 500 Intake: Oral 500 Output: Urine 0 Other: # Voids 0 0 Weight 111.3 kg 02/12/20 04:58 02/12/20 04:58
--- NOTE | 2020-02-12 13:55 | P.PN ---
Subjective Progress Note Date: 02/12/20 Principal diagnosis: This is a 74-year-old male was admitted with shortness of breath. He is on dialysis Thursday He was dialyzed yesterday. 2.5 Liters were ultrafiltered. He is completely back to normal today is on room air and has no shortness of breath. Good appetite no dizziness complains of some headaches History of present illness.; A 74-year-old male, with end-stage renal failure on dialysis Thursday. He was brought by the EMS to the emergency room obtunded, with shortness of breath. Patient was unable to recall what happened at home therefore called his and spoke to her. Supposedly at about 5 in the morning he called her and was complaining of short of breath she could not remember whether he had the CPAP on. EMS was called and they reported a O2 saturation of 60%. He was brought to the emergency room. Currently at the time of this exam he is in ICU on nasal cannula oxygen. He is comfortable in awake alert oriented On anything as he could not recall what happened at home. Other than this he has good memory of his previous history. His been on dialysis for the last 2 years she has a left upper arm graft. He has a good appetite no chest pain no fever chills no nausea vomiting diarrhea no abdominal pain. More recently he has had multiple falls because of weakness but not dizziness. Is able to walk usually at home without any support. Supposedly he is on a CPAP without oxygen. He is on dialysis on Thursday, 4 hours Objective - Vital Signs Vital signs: Vital Signs Temp 98 F 02/12/20 08:00 Pulse 60 02/12/20 12:00 Resp 18 02/12/20 12:00 BP 148/66 02/12/20 12:00 Pulse Ox 92 L 02/12/20 12:00 Intake & Output 02/11/20 02/12/20 02/12/20 18:59 06:59 18:59 Intake Total 500 Output Total 3000 Balance -3000 500 Weight 108.862 kg 111.3 kg Intake: Oral 500 Output: Urine 0 Hemodialysis 3000 Other: # Voids 0 0 On examination is awake alert oriented comfortable on room air. HEENT exam no JVP neck is supple no facial asymmetry Lungs clear to auscultation good air entry bilaterally Heart sounds unremarkable for any murmur or gallop Abdomen soft nontender obese Extremity exam was trace edema Neurologically awake alert oriented - Labs CBC & Chem 7: 02/12/20 04:58 02/12/20 04:58 Labs: Abnormal Lab Results - Last 24 Hours (Table) 02/12/20 02/12/20 02/12/20 Range/Units 04:58 04:58 04:58 RBC 3.24 L (4.30-5.90) m/uL Hgb 9.9 L (13.0-17.5) gm/dL Hct 31.1 L (39.0-53.0) % Chloride 97 L (98-107) mmol/L BUN 32 H (9-20) mg/dL Creatinine 5.33 H (0.66-1.25) mg/dL Glucose 118 H (74-99) mg/dL Troponin I 0.420 H* (0.000-0.034) ng/mL Microbiology - Last 24 Hours (Table) 02/11/20 06:15 Blood Culture - Preliminary Blood No Growth after 24 hours Assessment and Plan Assessment: Impression 1. ESRD on dialysis Thursday. On dialysis for the last 3 years with Left upper arm graft 2. Admitted with shortness of breath, and obtundation transiently O2 saturation 60% presumably at home by the EMS. Uses CPAP with room air and might have come off. The gases not available. Troponin 0.037, normal electrolytes creatinine 5.68 glucose 22 lactic acid 1.9. Back to normal after dialysis yesterday with 2.5 L ultrafiltration 3. History of COPD, sleep apnea on CPAP room air 4. History of atrial fibrillation 5. Anemia hemoglobin is 10 at target Recommendation 1. His stable enough to be discharged as far as the fall is concerned. [place] be Thursday 3. Maintain Aranesp 40 g. 4. Monitor blood pressure Thank you for this consultation we'll continue to follow.
[2020-02-12] MEDS ORDERED: DARBEPOETIN ALFA 40 MCG/0.4 ML SYRINGE SQ SCH (14:00)
[2020-02-12 14:44] VITALS: BMI 36.2
[2020-02-12] MEDS: MONTELUKAST 10 MG TAB PO SCH (20:30)
[2020-02-13 05:13] LABS: Calcium 9.7 mg/dL (8.4-10.2); Potassium 3.7 mmol/L (3.5-5.1)
[2020-02-13] MEDS: BUDESONIDE 0.5 MG/2 ML NEBU INHALATION SCH (08:02)
[2020-02-13] MEDS: IPRATROPIUM-ALBUTEROL 3 ML NEB INHALATION SCH ×2 (08:02→11:21)
[2020-02-13] MEDS: FINASTERIDE 5 MG TAB PO SCH (08:45)
[2020-02-13] MEDS: METOPROLOL TARTRATE 50 MG TAB PO SCH (08:45)
[2020-02-13] MEDS: PANTOPRAZOLE 40 MG TABLET PO SCH (08:46)
[2020-02-13] MEDS: MAGNESIUM OXIDE 400 MG TAB PO SCH (08:46)
[2020-02-13] MEDS: ALLOPURINOL 100 MG TAB PO SCH (08:46)
[2020-02-13] MEDS: ISOSORBIDE MONONITRATE ER 30 MG TAB.ER.24H PO SCH (08:46)
[2020-02-13] MEDS: MULTIVITAMINS, THERA 1 EACH TAB PO SCH (08:46)
[2020-02-13] MEDS: TORSEMIDE 20 MG TAB PO SCH (08:46)
[2020-02-13] MEDS: SERTRALINE 100 MG TAB PO SCH (08:46)
[2020-02-13] MEDS: amLODIPine 10 MG TAB PO SCH (08:54)
[2020-02-13] MEDS: SEVELAMER 800 MG TAB PO SCH (08:54)
[2020-02-13] MEDS: NON FORMULARY DRUG (Rena-Vite 1 TAB) PO SCH (08:57)
[2020-02-13] MEDS: HEPARIN SODIUM,PORCINE 5,000 UNIT/ML 1 ML VIAL SQ SCH (09:00)
[2020-02-13 09:03] VITALS: BP 159/76; RESP 16; TEMP 98.1
--- NOTE | 2020-02-13 09:16 | PN ---
PROGRESS NOTE Mr. Dumont is a 74-year-old male with a history of chronic kidney disease on hemodialysis who presented with symptoms of progressive dyspnea. He is feeling better this morning. He underwent dialysis on Thursday. Hemodynamically stable. He denies any chest pain. He denies any dizziness or palpitation. He denies any nausea. He has a history of coronary artery disease. Hemodynamically, he is stable. He has no evidence of tachycardia or bradycardia. He had an echocardiogram performed on the of this month that revealed an ejection fraction of 55% to 60% with mild tricuspid regurgitation and no evidence of pulmonary hypertension. He continues to be at this time on amlodipine 10 mg daily, Lipitor 10 mg daily, Proscar, isosorbide mononitrate 30 mg daily, metoprolol tartrate 100 mg daily, Singulair, Renvela, Demodex 20 mg daily. PHYSICAL EXAMINATION: Blood pressure running in the 130s to 150s with a heart rate in 60s, lungs no wheezes. HEART: Regular rate and rhythm. S1, S2. No S3. No rub appreciated with a systolic murmur. ABDOMEN: Soft, obese, nontender. EXTREMITIES: No edema. LAB DATA: Revealed BUN and creatinine 29 and 7.06, potassium 3.7. IMPRESSION: 1. Evidence of congestive heart failure with fluid overload related to the renal failure with preserved systolic function. 2. History of chronic kidney disease. 3. Hypertension. 4. Hyperlipidemia. RECOMMENDATION: From the cardiac standpoint, will continue present therapy. Will await the input of the Nephrology Service regarding possible dialysis today. Otherwise, continue per schedule. At this time, there is no evidence of active ischemic event. MMODL / IJN: [id number] /
--- NOTE | 2020-02-13 09:28 | P.PN ---
Subjective Patient is seen in follow-up for end-stage renal disease. He is maintained on hemodialysis on Thursday schedule. Denies chest pain or shortness of breath. Oral intake is good. Hemodynamically stable. Vital signs are stable. General: The patient appeared well nourished and normally developed. HEENT: Head exam is unremarkable. Neck is without jugular venous distension. LUNGS: Lungs are clear to auscultation and percussion. Breath sounds decreased. HEART: Rate and Rhythm are regular. ABDOMEN: Soft, nontender. EXTREMITITES: No clubbing, cyanosis, or edema. Objective - Vital Signs Vital signs: Vital Signs Temp 98.1 F 02/13/20 08:00 Pulse 68 02/13/20 08:16 Resp 16 02/13/20 08:00 BP 159/76 02/13/20 08:00 Pulse Ox 97 02/13/20 08:00 Intake & Output 02/12/20 02/13/20 02/13/20 18:59 06:59 18:59 Intake Total 1200 250 222 Balance 1200 250 222 Weight 111.3 kg 111.8 kg Intake: Oral 1200 250 222 Other: # Voids 0 1 0 # Bowel Movements 1 - Labs CBC & Chem 7: 02/12/20 04:58 02/13/20 04:26 Labs: Abnormal Lab Results - Last 24 Hours (Table) 02/12/20 02/13/20 Range/Units 04:58 04:26 Sodium 134 L (137-145) mmol/L Chloride 95 L (98-107) mmol/L BUN 49 H (9-20) mg/dL Creatinine 7.06 H* (0.66-1.25) mg/dL Glucose 109 H (74-99) mg/dL Troponin I 0.420 H* (0.000-0.034) ng/mL Microbiology - Last 24 Hours (Table) 02/11/20 06:15 Blood Culture - Preliminary Blood No Growth after 48 hours Assessment and Plan Plan: Assessment: 1. End-stage renal disease maintained on hemodialysis on Thursday schedule. 2. Hypertension with chronic kidney disease. Stable. 3. Anemia of chronic kidney disease maintained on Aranesp. 4. Dyspnea secondary to volume overload. Improved. 5. Chronic kidney disease mineral bone disease maintained on Renvela. Plan: Hemodialysis tomorrow. Stable to be discharged from nephrology standpoint.
--- NOTE | 2020-02-13 10:51 | P.DS ---
Providers Date of admission: 02/11/20 06:46 Expected date of discharge: 02/13/20 Attending physician: Jyotsna Kovacs Consults: 02/11/20 06:46 Consult Physician Stat Consulting Provider: Piyush Mazariegos Consult Reason/Comments: respiratory failure Do you want consulting provider notified?: Already Contacted Consult Physician Stat Consulting Provider: Ivy Chun Consult Reason/Comments: needs dialysis today Do you want consulting provider notified?: Yes, Notify in am 02/11/20 06:47 Consult Physician Urgent Consulting Provider: [facility] Consult Reason/Comments: established patient Do you want consulting provider notified?: Yes, Notify in am Primary care physician: Jyotsna Kovacs [facility] Course: This is a 74-year-old male one my patient with a previous medical history significant for hypertension and hypertensive cardiovascular disease, hyperlipidemia, insulin and Zestril hemodialysis Thursday and Thursday, history of asthma/COPD, history of CAD post-PCI, history of ankylosing spondylitis, obstructive sleep apnea on a CPAP, patient was supposed to go to dialysis today he went to bed last night and he woke up at around 3:00 in the morning his found him in agonal breathing and he was having his CPAP off she ended up calling 911 and the patient was transported on BiPAP into the emergency department at [facility] his chest x-ray showed pulmonary edema and the patient was admitted to the intensive care unit after he was placed on a BiPAP, he is currently being dialyzed in the intensive care unit, he denies any chest pain at this time he is complaining of some shortness breath, he has no fever or chills has no coughing he has no hemoptysis, he has no recent illness or recent travel or recent sick contacts. Patient was seen in consultation by Dr. Mazariegos from pulmonary and critical care, patient is downgraded to 2 L nasal cannula this time, is feeling much better is more awake and alert and he is being dialyzed at this point in time. He was seen in consultation by nephrology who will be seen in consultation by cardiology as well as 02/11: Patient sitting up in bed in no apparent distress, he is feeling better he denies any chest pain, or shortness breath, he has not been seen by physical therapy yet he would be evaluated for possible subacute rehabilitation. Patient denies any abdominal pain he has not had any bowel movement yet he his appetite is pretty good is not requiring any oxygen at this time he was dialyzed yesterday. 02/12: Patient remains in the intensive care unit waiting for a bed on the cardiac stepdown unit. Patient has been afebrile, heart rate 72, blood pressure 159/76, pulse ox 97% on room air. Repeat blood work reveals sodium 134, potassium 3.7, chloride 95, CO2 28, BUN 49 creatinine 7.06. Blood sugar 109. Patient has been followed by nephrology with plan to continue hemodialysis on the Thursday schedule. Patient denies any chest pain or shortness of breath. He has been eating well. Patient was evaluated by physical therapy and recommendations are for home care. web services manager has arranged for [facility] to follow-up with the patient. Patient will be discharged home today in stable condition. Discharge diagnoses: 1. Acute hypoxemic respiratory failure secondary to pulmonary edema due to volume overload. 2. End-stage renal disease on hemodialysis. 3. CAD post-PCI. 4. Hypertension and hypertensive cardiovascular disease. 5. Hyperlipidemia. 6. Gout, chronic. 7. Moderate intermittent Asthma/COPD. 8. Obesity with obstructive sleep apnea. 9. GERD with Prabhakar's esophagus. 10. Vitamin D deficiency. 11. Recurrent Depression. 12. Ankylosing spondylitis. Discharge plan: Home with [facility] Impression and plan of care have been directed as dictated by the signing physician. Missy Manzano nurse practitioner acting as scribe for signing physician. Patient Condition at Discharge: Good Plan - Discharge Summary Discharge Rx Participant: No New Discharge Prescriptions: Continue Montelukast [Singulair] 10 mg PO HS Atorvastatin Calcium [Lipitor] 10 mg PO MOWEFR Dutasteride [Avodart] 0.5 mg PO DAILY Multivitamin/Iron/Folic Acid [Centrum Complete Multivit Tab] 1 tab PO DAILY Felodipine [Felodipine ER] 10 mg PO SUMOWEFR Beclomethasone Dipropionate [Qvar 80 mcg/puff] 2 puff INHALATION RT-BID traMADol HCL/ACETAMINOPHEN [Ultracet 37.5-325] 2 tab PO Q6H PRN PRN Reason: Pain Ergocalciferol [Vitamin D2 (DRISDOL)] 50,000 unit PO WE Torsemide [Demadex] 20 mg PO DAILY Isosorbide Mononitrate ER [Imdur] 30 mg PO DAILY Lansoprazole 30 mg PO DAILY Febuxostat [Uloric] 80 mg PO DAILY Magnesium Oxide [Mag-Ox] 400 mg PO DAILY Metoclopramide [Reglan] 5 mg PO TID PRN PRN Reason: Nausea Mackenzie-Kayla 1 tab PO DAILY Lidocaine-Prilocaine Cream [Emla Cream 2.5%/2.5%] 1 applic TOPICAL DAILY PRN PRN Reason: access site on dialysis days Metoprolol Tartrate [Lopressor] 100 mg PO DAILY Sevelamer [Renvela] 800 mg PO BID-W/MEALS Sertraline [Zoloft] 100 mg PO DAILY Albuterol Inhaler [Ventolin Hfa Inhaler] 2 puff INHALATION RT-QID Omalizumab [Xolair] 150 mg SQ Q28D Discharge Medication List Atorvastatin Calcium [Lipitor] 10 mg PO MOWEFR 11/11/14 [History] Dutasteride [Avodart] 0.5 mg PO DAILY 11/11/14 [History] Felodipine [Felodipine ER] 10 mg PO SUMOWEFR 11/11/14 [History] Montelukast [Singulair] 10 mg PO HS 11/11/14 [History] Multivitamin/Iron/Folic Acid [Centrum Complete Multivit Tab] 1 tab PO DAILY 11/11/14 [History] Beclomethasone Dipropionate [Qvar 80 mcg/puff] 2 puff INHALATION RT-BID 11/21/15 [History] Ergocalciferol [Vitamin D2 (DRISDOL)] 50,000 unit PO WE 11/21/15 [History] Isosorbide Mononitrate ER [Imdur] 30 mg PO DAILY 11/21/15 [History] Torsemide [Demadex] 20 mg PO DAILY 11/21/15 [History] traMADol HCL/ACETAMINOPHEN [Ultracet 37.5-325] 2 tab PO Q6H PRN 11/21/15 [History] Febuxostat [Uloric] 80 mg PO DAILY 10/22/16 [History] Lansoprazole 30 mg PO DAILY 10/22/16 [History] Magnesium Oxide [Mag-Ox] 400 mg PO DAILY 08/27/17 [History] Metoclopramide [Reglan] 5 mg PO TID PRN 08/27/17 [History] Lidocaine-Prilocaine Cream [Emla Cream 2.5%/2.5%] 1 applic TOPICAL DAILY PRN 11/03/19 [History] Metoprolol Tartrate [Lopressor] 100 mg PO DAILY 11/03/19 [History] Mackenzie-Kayla 1 tab PO DAILY 11/03/19 [History] Sevelamer [Renvela] 800 mg PO BID-W/MEALS 11/03/19 [History] Albuterol Inhaler [Ventolin Hfa Inhaler] 2 puff INHALATION RT-QID 02/11/20 [History] Sertraline [Zoloft] 100 mg PO DAILY 02/11/20 [History] Omalizumab [Xolair] 150 mg SQ Q28D 02/13/20 [History] Follow up Appointment(s)/Referral(s): Jyotsna Kovacs MD [Primary Care Provider] - 1 Week [facility], [NON-STAFF] - 1-2 Days Frank Hameed DO [STAFF PHYSICIAN] - 1 Week Patient Instructions/Handouts: Sleep Apnea (DC), Dialysis Diet (DC), Fall Prevention for Older Adults (DC), End Stage Kidney Disease (DC) Discharge Disposition: HOME WITH HOME HEALTH SERVICES
[2020-02-13 11:24] VITALS: PULSE 70
--- NOTE | 2020-02-13 13:07 | P.PN ---
Subjective Progress Note Date: 02/13/20 Principal diagnosis: Acute hypoxic respiratory failure secondary to fluid overload secondary to chronic renal failure, improved with hemodialysis. On today's evaluation of 02/12/2020, the patient is doing well. No specific complaints. Dialysis was done yesterday. A total of 3 L was removed. Overall poor status is improved. The patient can be weaned down to a room air oxygen. Overnight, he was given BiPAP pressure of 12/6 cm of water knowing that he utilizes a CPAP machine at home. Our hospital BiPAP machine was utilized overnight. No altered mentation. No cough or sputum production. No fever or chills. No nausea or vomiting. No other complaints otherwise for now and the patient is quite stable. His count is at 8.6 with a hemoglobin of 9.9. The BUN is a 32 with a creatinine of 5.3. Reevaluated today on 02/13/20, patient is presently on room air at 94% saturation. Asymptomatic, no cough no wheezing no shortness of breath. Patient is being considered for discharge home today. Objective - Vital Signs Vital signs: Vital Signs Temp 98.1 F 02/13/20 08:00 Pulse 70 02/13/20 11:38 Resp 16 02/13/20 08:00 BP 159/76 02/13/20 08:00 Pulse Ox 97 02/13/20 08:00 Intake & Output 02/12/20 02/13/20 02/13/20 18:59 06:59 18:59 Intake Total 1200 250 222 Balance 1200 250 222 Weight 111.3 kg 111.8 kg Intake: Oral 1200 250 222 Other: Voiding Method Toilet Urinal # Voids 0 1 0 # Bowel Movements 1 - Exam Physical Exam: Revealed a 74-year-old white male pleasant in no distress. Head: Atraumatic normocephalic. HEENT:[Neck is supple.] [No neck masses.] [No thyromegaly.] [No JVD.] Chest: [Clear throughout, no crackles, no rhonchi, no wheezes.] Cardiac Exam: [Normal S1 and S2, no S3 gallop, no murmur.] Abdomen: [Soft, nontender, no megaly, no rebound, no guarding, normal bowel sounds.] Extremities: [No clubbing, no edema, no cyanosis.] AV 15 noted in the left upper extremity, functional. Neurological Exam: [No focal neurologic deficit. Alert and oriented 3. Psychiatric: Normal mood, affect and normal mental status examination] - Labs CBC & Chem 7: 02/12/20 04:58 02/13/20 04:26 Labs: Abnormal Lab Results - Last 24 Hours (Table) 02/13/20 Range/Units 04:26 Sodium 134 L (137-145) mmol/L Chloride 95 L (98-107) mmol/L BUN 49 H (9-20) mg/dL Creatinine 7.06 H* (0.66-1.25) mg/dL Glucose 109 H (74-99) mg/dL Microbiology - Last 24 Hours (Table) 02/11/20 06:15 Blood Culture - Preliminary Blood No Growth after 48 hours Assessment and Plan Assessment: Acute hypoxic respiratory failure secondary to fluid overload secondary to chronic renal failure, improved with hemodialysis only. Dialysis dependent renal failure. Chronic in nature, patient is on hemodialysis for 2-1/2 years. Coronary artery disease and previous PCI. Dyslipidemia. Benign essential hypertension. History of ankylosing spondylitis. History of depression. Recommendation: Continue present treatment plan, Continue hemodialysis as scheduled. His echocardiogram showed LV function without any segmental wall motion abnormality. Patient cleared for discharge planning today. Time with Patient: Less than 30
--- NOTE | 2020-02-13 13:49 | CDI ---
Documentation Clarification Form Date: 02/13/2020 01:19:11 PM From: Ailyn Oneil RN, CCDS Admit Date: 02/11/2020 06:46:00 AM Patient Name: Sulaiman Dumont Visit Number: [id number] Discharge Date: ATTENTION: The Clinical Documentation Specialists (CDI) and [facility] Coding Staff appreciate your assistance in clarifying documentation. Please respond to the clarification below the line at the bottom and electronically sign. The CDI & [facility] Coding staff will review the response and follow-up if needed. Please note: Queries are made part of the Legal Health Record. If you have any questions, please contact the author of this message via ITS. Dr. Tabby Kurtz CHF is documented in the progress note on 02/12 and further clarification is requested. 02/12 Cardiology: Evidence of congestive heart failure with fluid overload related to the renal failure with preserved systolic. Continue present therapy. History/Risk Factors: Asthma, CAD, Heart Failure, COPD, hypertension ESRD, Clinical Indicators: 50-we[age]-sdd-male who present on 02/10 for evaluation of respiratory distress. EMS arrived to find the patient unresponsive blue with agonal respirations. Oxygen saturations were in the 60's. CPAP started oxygen saturation improved, mental status improved in route to the hospital. VS/Pulse OX: 163/80 88 22 99.2 97 % 6/L NC 02/10 BNP: [id number] 02/10 Echocardiogram Results: There is moderate concentric left ventricular hypertrophy. Overall left ventricular systolic function is normal with, an EF between 55-60 % 02/10 Chest X Ray: Mild pulmonary edema with probable bilateral lower lobe atelectasis. Findings may be associated with cardiac dysfunction or hypervolemia. Overall the pulmonary edema appears slightly improved when compaired to the prior exam of October 2019. Treatment: Hemodialysis per orders Monitor blood pressure Monitor O2 Sat's titrate Imdur 30 po daily Lopressor 100mg po daily Demadex 20 mg po daily In your professional opinion, can you please clarify the acuity and type of CHF if known? Systolic Heart Failure: Acute Chronic Acute on Chronic Diastolic Heart Failure: XXX Acute Chronic Acute on Chronic Systolic & Diastolic Heart Failure: Acute Chronic Acute on Chronic Heart Failure Unable to Determine Other, please specify (Last Revision: December 2017) MTDD
[2020-02-13] MEDS ORDERED: ATORVASTATIN 10 MG TAB PO SCH (21:00)
[2020-02-14] MEDS ORDERED: ALLOPURINOL 100 MG TAB PO SCH (09:00)
[2020-02-15] MEDS ORDERED: ERGOCALCIFEROL 50,000 UNIT CAP PO SCH (09:00)
== END 2020-02-13 14:39 | disposition home health service (06) | DRG 291 ==
LOC: EC 05:46 → 2SICU 06:46
PROVIDERS: ADMIT Internal Medicine; ATTEND Internal Medicine
PROC: 5A1D70Z Performance of Urinary Filtration, Intermittent, Less than 6 Hours Per Day (ICD-10-PCS; principal; 2020-02-11)
PROC: 5A09457 Assistance with Respiratory Ventilation, 24-96 Consecutive Hours, Continuous Positive Airway Pressure (ICD-10-PCS; 2020-02-11)
DX: I13.2 Hypertensive heart and chronic kidney disease with heart failure and with stage 5 chronic kidney disease, or end stage renal disease (principal); N18.6 End stage renal disease; J96.01 Acute respiratory failure with hypoxia; I50.31 Acute diastolic (congestive) heart failure; F33.9 Major depressive disorder, recurrent, unspecified; D63.1 Anemia in chronic kidney disease; E83.9 Disorder of mineral metabolism, unspecified; E11.22 Type 2 diabetes mellitus with diabetic chronic kidney disease; Z99.2 Dependence on renal dialysis; J44.9 Chronic obstructive pulmonary disease, unspecified; M45.9 Ankylosing spondylitis of unspecified sites in spine; Z20.828 Contact with and (suspected) exposure to other viral communicable diseases; G47.33 Obstructive sleep apnea (adult) (pediatric); I25.10 Atherosclerotic heart disease of native coronary artery without angina pectoris; K21.9 Gastro-esophageal reflux disease without esophagitis; J45.20 Mild intermittent asthma, uncomplicated; N40.0 Benign prostatic hyperplasia without lower urinary tract symptoms; E78.5 Hyperlipidemia, unspecified; G89.29 Other chronic pain; M54.5 Low back pain; M19.90 Unspecified osteoarthritis, unspecified site; K22.70 Barrett's esophagus without dysplasia; M1A.9XX0 Chronic gout, unspecified, without tophus (tophi); E55.9 Vitamin D deficiency, unspecified; K64.9 Unspecified hemorrhoids; R29.6 Repeated falls; H93.13 Tinnitus, bilateral; H91.90 Unspecified hearing loss, unspecified ear; R53.1 Weakness; E66.9 Obesity, unspecified; Z68.36 Body mass index [BMI] 36.0-36.9, adult; Z79.51 Long term (current) use of inhaled steroids; Z79.899 Other long term (current) drug therapy; Z99.89 Dependence on other enabling machines and devices; Z86.79 Personal history of other diseases of the circulatory system; Z90.49 Acquired absence of other specified parts of digestive tract; Z86.010 Personal history of colon polyps; Z85.828 Personal history of other malignant neoplasm of skin; Z95.5 Presence of coronary angioplasty implant and graft; Z98.890 Other specified postprocedural states; Z98.42 Cataract extraction status, left eye; Z98.41 Cataract extraction status, right eye; Z96.1 Presence of intraocular lens; Z88.8 Allergy status to other drugs, medicaments and biological substances; Z80.3 Family history of malignant neoplasm of breast; Z82.49 Family history of ischemic heart disease and other diseases of the circulatory system; Z83.3 Family history of diabetes mellitus
CPT/HCPCS: 36415; 71045; 80048; 80053; 83605; 83735; 83880; 84484; 85025; 85610; 85730; 87040; 90935; 93005; 93306; 94640; 94660; 96365; 96367; 99291

== ENCOUNTER 2020-03-17 10:22 | Inpatient (IN) | payer MEDICARE, BC, OTHER ==
--- NOTE | 2020-03-17 11:07 | ED ---
General Adult HPI - General Chief complaint: Fall Stated complaint: Dizziness, Fall Time Seen by Provider: 03/17/20 10:25 Source: patient, EMS, RN notes reviewed, old records reviewed Mode of arrival: EMS Limitations: no limitations - History of Present Illness Initial comments: 74-year-old male history of end-stage renal disease presents status post fall. Patient has had multiple falls in the past several months. He was scheduled for an outpatient CT ordered by his corporate human resources manager for some episodes of confusion that is happening over the past several weeks. He is alert and oriented to time my evaluation with no acute complaints. He denies any injury with the fall. No head neck or back trauma. He has been very unsteady on his feet and has had generalized weakness for these past several weeks. No fever. No vomiting. He last received hemodialysis on . He is scheduled for hemodialysis today at . - Related Data Home Medications Medication Instructions Recorded Confirmed Atorvastatin Calcium [Lipitor] 10 mg PO MOWEFR 11/11/14 02/11/20 Dutasteride [Avodart] 0.5 mg PO DAILY 11/11/14 02/11/20 Felodipine [Felodipine ER] 10 mg PO SUMOWEFR 11/11/14 02/11/20 Montelukast [Singulair] 10 mg PO HS 11/11/14 02/11/20 Multivitamin/Iron/Folic Acid 1 tab PO DAILY 11/11/14 02/11/20 [Centrum Complete Multivit Tab] Beclomethasone Dipropionate [Qvar 2 puff INHALATION RT-BID 11/21/15 02/11/20 80 mcg/puff] Ergocalciferol [Vitamin D2 50,000 unit PO WE 11/21/15 02/11/20 (DRISDOL)] Isosorbide Mononitrate ER [Imdur] 30 mg PO DAILY 11/21/15 02/11/20 Torsemide [Demadex] 20 mg PO DAILY 11/21/15 02/11/20 traMADol HCL/ACETAMINOPHEN 2 tab PO Q6H PRN 11/21/15 02/11/20 [Ultracet 37.5-325] Febuxostat [Uloric] 80 mg PO DAILY 10/22/16 02/11/20 Lansoprazole 30 mg PO DAILY 10/22/16 02/11/20 Magnesium Oxide [Mag-Ox] 400 mg PO DAILY 08/27/17 02/11/20 Metoclopramide [Reglan] 5 mg PO TID PRN 08/27/17 02/11/20 Lidocaine-Prilocaine Cream [Emla 1 applic TOPICAL DAILY PRN 11/03/19 02/11/20 Cream 2.5%/2.5%] Metoprolol Tartrate [Lopressor] 100 mg PO DAILY 11/03/19 02/11/20 Mackenzie-Kayla 1 tab PO DAILY 11/03/19 02/11/20 Sevelamer [Renvela] 800 mg PO BID-W/MEALS 11/03/19 02/11/20 Albuterol Inhaler [Ventolin Hfa 2 puff INHALATION RT-QID 02/11/20 02/11/20 Inhaler] Sertraline [Zoloft] 100 mg PO DAILY 02/11/20 02/11/20 Omalizumab [Xolair] 150 mg SQ Q28D 02/13/20 02/13/20 Allergies Allergy/AdvReac Type Severity Reaction Status Date / Time diphenhydramine HCl Allergy Confusion Verified 03/17/20 10:33 [From Junie] Review of Systems ROS Statement: Those systems with pertinent positive or pertinent negative responses have been documented in the HPI. ROS Other: All systems not noted in ROS Statement are negative. Past Medical History Past Medical History: Asthma, Coronary Artery Disease (CAD), Cancer, Heart Failure, COPD, GERD/Reflux, Hearing Disorder / Deafness, Hyperlipidemia, Hypertension, Osteoarthritis (OA), Prostate Disorder, Renal Disease, Sleep Apnea/CPAP/BIPAP Additional Past Medical History / Comment(s): ESRD with hemodialysis on //Thu, anemia, BPH, bronchitis, chronic low back pain, ankylosing spondylosis, gout in ankles in past, concepcion's esophagus, colon polyp, hemorrhoids, behind L ear basal cell skin cancer with removal, L hand squamous cell skin cancer removal, JF with Bipap, bilateral tinnitis, CHF per 2017 medical record but pt does not recall. History of Any Multi-Drug Resistant Organisms: None Reported Past Surgical History: Appendectomy, Cholecystectomy, Heart Catheterization, Heart Catheterization With Stent, Hernia Repair Additional Past Surgical History / Comment(s): Fistula L arm, EGDs, colonoscopies, abdominal hernia repair, ivette fundoplication, ruptured gallbladder with christelle/appy and piece of bowel removed, hemorrhoidectomy, behind L ear lesion removed and another from L hand, bilateral cataract removals/lens implants. Past Anesthesia/Blood Transfusion Reactions: No Reported Reaction Additional Past Anesthesia/Blood Transfusion Reaction / Comment(s): . Date of Last Stent Placement:: 2003 Past Psychological History: No Psychological Hx Reported Smoking Status: Never smoker Past Alcohol Use History: None Reported Past Drug Use History: None Reported - Past Family History Mother Family Medical History: Cancer Additional Family Medical History / Comment(s): Mother at age 72 from [place] EAST CANCER Father Family Medical History: Myocardial Infarction ([place]) Additional Family Medical History / Comment(s): Father of a [place] at the age of 48 yrs. Sister(s) Family Medical History: Diabetes Mellitus Additional Family Medical History / Comment(s): Patient has one sister. Tracy covarrubias's son have any brothers. Patient has 2 children with no major medical problems. General Exam Limitations: no limitations General appearance: alert, in no apparent distress Head exam: Present: atraumatic, normocephalic Eye exam: Present: normal appearance, PERRL ENT exam: Present: normal exam Neck exam: Present: normal inspection. Absent: tenderness, meningismus Respiratory exam: Present: normal lung sounds bilaterally, other (There is superficial abrasion, left posterior chest wall). Absent: respiratory distress Cardiovascular Exam: Present: regular rate, normal rhythm GI/Abdominal exam: Present: soft. Absent: distended, tenderness, guarding, rebound Extremities exam: Present: normal inspection, normal capillary refill. Absent: pedal edema, calf tenderness Back exam: Present: normal inspection, full ROM Course Vital Signs 03/17/20 03/17/20 10:24 11:33 Temperature 98.8 F Pulse Rate 65 58 L Respiratory 20 18 Rate Blood Pressure 140/63 151/84 O2 Sat by Pulse 96 99 Oximetry EKG Findings - EKG Comments: EKG Findings:: Normal sinus rhythm, left bundle branch block, rate of 63, IL interval 178 QRS duration 150, QTC 483, no significant change compared to prior EKG Medical Decision Making - Medical Decision Making Patient with multiple falls, generalized weakness, episodes of confusion. Patient was scheduled for an outpatient CT this was performed emergency department, negative for any acute intracranial abnormality. Chest x-ray showing bilateral interstitial infiltrate, likely fluid overload but will treat for pneumonia given the elevated white blood cell count of 13,000. Case discussed with Dr. Hameed covering for nephrology will arrange for hemodialysis. Case discussed with the admitting physician Dr. Kovacs - Lab Data Result diagrams: 03/17/20 11:15 03/17/20 11:15 Lab Results 03/17/20 03/17/20 Range/Units 11:15 11:15 WBC 13.1 H (3.8-10.6) k/uL RBC 3.57 L (4.30-5.90) m/uL Hgb 10.7 L (13.0-17.5) gm/dL Hct 32.9 L (39.0-53.0) % MCV 92.0 (80.0-100.0) fL MCH 30.0 (25.0-35.0) pg MCHC 32.6 (31.0-37.0) g/dL RDW 15.4 (11.5-15.5) % Plt Count 224 (150-450) k/uL Neutrophils % 84 % Lymphocytes % 7 % Monocytes % 7 % Eosinophils % 2 % Basophils % 0 % Neutrophils # 11.0 H (1.3-7.7) k/uL Lymphocytes # 0.8 L (1.0-4.8) k/uL Monocytes # 0.9 (0-1.0) k/uL Eosinophils # 0.3 (0-0.7) k/uL Basophils # 0.0 (0-0.2) k/uL Hypochromasia Slight Sodium 138 (137-145) mmol/L Potassium 4.0 (3.5-5.1) mmol/L Chloride 100 (98-107) mmol/L Carbon Dioxide 29 (22-30) mmol/L Anion Gap 9 mmol/L BUN 49 H (9-20) mg/dL Creatinine 5.81 H (0.66-1.25) mg/dL Est GFR (CKD-EPI)AfAm 10 (>60 ml/min/1.73 sqM) Est GFR (CKD-EPI)NonAf 9 (>60 ml/min/1.73 sqM) Glucose 123 H (74-99) mg/dL Calcium 9.6 (8.4-10.2) mg/dL Magnesium 2.0 (1.6-2.3) mg/dL Disposition Clinical Impression: ESRD (end stage renal disease) on dialysis, Fall, Pneumonia Disposition: ADMITTED IP TO THIS HOSP Condition: Stable Is patient prescribed a controlled substance at d/c from ED?: No Referrals: Jyotsna Kovacs MD [Primary Care Provider] - 1-2 days Decision to Admit Reason: Admit from EC Decision Date: 03/17/20 Decision Time: 12:35
[2020-03-17 11:26] LABS: Basophils % (A) 0 %; Eosinophils # (A) 0.3 k/uL (0-0.7); Eosinophils % (A) 2 %; HCT 32.9 % (39.0-53.0); HGB 10.7 gm/dL (13.0-17.5); Hypochromasia Slight; Lymphocytes # (A) 0.8 k/uL (1.0-4.8); Lymphocytes % (A) 7 %; MCHC 32.6 g/dL (31.0-37.0); Mean Platelet Volume 8.2; Monocytes # (A) 0.9 k/uL (0-1.0); Monocytes % (A) 7 %; Neutrophils % (A) 84 %; Platelet Count 224 k/uL (150-450); RBC 3.57 m/uL (4.30-5.90); RDW 15.4 % (11.5-15.5); WBC 13.1 k/uL (3.8-10.6)
--- NOTE | 2020-03-17 11:55 | CT ---
EXAMINATION TYPE: CT brain wo con DATE OF EXAM: 03/17/2020 COMPARISON: 08/27/2017 HISTORY: Fall CT DLP: 1149.[address] of the brain was performed. The ventricles, basal cisterns and sulci overlying the cerebral convexities demonstrate mild enlargem ent. There is no evidence for intracranial hemorrhage or sulcal effacement. There is decreased attenuation about the periventricular white matter and deep white matter of both c erebral hemispheres, compatible with chronic small vessel ischemia. Differential diagnosis does inclu de demyelination. No mass effects are seen.No midline shift. Osseous calvarium is intact. If symptoms persist consider MRI. IMPRESSION: 1. Age related atrophic and chronic small vessel ischemic change without acute intracranial process s een at this time.
[2020-03-17 11:56] LABS: Calcium 9.6 mg/dL (8.4-10.2)
--- NOTE | 2020-03-17 11:57 | XR ---
EXAMINATION TYPE: XR chest 2V DATE OF EXAM: 03/17/2020 COMPARISON: 02/11/2020 HISTORY: Shortness of breath TECHNIQUE: Frontal and lateral views of the chest are obtained. FINDINGS: Scattered senescent parenchymal changes noted. Hyperinflation compatible with COPD. Much improved infiltrate right lower lobe. New infiltrate noted right upper lobe. Interstitial proces s seen bilaterally. Correlate for Covid 19 pneumonia. No evidence for pneumothorax. Heart size is stable. Mediastinal structures are stable and grossly unremarkable. No evidence for hilar prominence. Degenerative changes dorsal spine. IMPRESSION: 1. Much improved infiltrate right lower lobe. New infiltrate noted right upper lobe. Interstitial pro cess seen bilaterally. Correlate for Covid 19 pneumonia.
[2020-03-17] MEDS ORDERED: cefTRIAXone IN SWFI 1,000 MG/10 ML SYRINGE IVP STA (12:00)
[2020-03-17] MEDS ORDERED: AZITHROMYCIN 500 MG in SODIUM CHLORIDE 0.9% 250 ML IVPB STA (12:00)
[2020-03-17] MEDS ORDERED: NALOXONE 0.4 MG/ML 1 ML VIAL IV PRN (12:32)
--- NOTE | 2020-03-17 14:12 | P.NPCON ---
History of Present Illness - Reason for Consult end stage renal disease - History of Present Illness Reason for consultation: End-stage renal disease History of present illness: Patient is a 74-year-old male seen in renal consultation for end-stage renal disease. He is maintained on hemodialysis on Thursday schedule. He has a left upper extremity AV fistula. Patient sustained a fall this morning at home and was down for about 15 or 20 minutes. Patient states he was unable to get up. Subsequently his called the EMS to bring him to the hospital. Patient states he felt lightheaded and subsequently fell. He denies hitting his head. No vomiting or diarrhea. Oral intake has been fair. Blood pressure is well controlled. He denies chest pain or shortness of breath. Last hemodialysis was on . Brain CT revealed no acute changes. No fever or chills. No abdominal pain. Vital signs are stable. General: The patient appeared well nourished and normally developed. HEENT: Head exam is unremarkable. Neck is without jugular venous distension. LUNGS: Lungs are clear to auscultation and percussion. Breath sounds decreased. HEART: Rate and Rhythm are regular. ABDOMEN: Soft, nontender. EXTREMITITES: No clubbing, cyanosis, or edema. Past Medical History Past Medical History: Asthma, Coronary Artery Disease (CAD), Cancer, Heart Failure, COPD, GERD/Reflux, Hearing Disorder / Deafness, Hyperlipidemia, Hypertension, Osteoarthritis (OA), Prostate Disorder, Renal Disease, Sleep Apnea/CPAP/BIPAP Additional Past Medical History / Comment(s): ESRD with hemodialysis on //Thu, anemia, BPH, bronchitis, chronic low back pain, ankylosing spondylosis, gout in ankles in past, concepcion's esophagus, colon polyp, hemorrhoids, behind L ear basal cell skin cancer with removal, L hand squamous cell skin cancer removal, JF with Bipap, bilateral tinnitis, CHF per 2017 medical record but pt does not recall. History of Any Multi-Drug Resistant Organisms: None Reported Past Surgical History: Appendectomy, Cholecystectomy, Heart Catheterization, Heart Catheterization With Stent, Hernia Repair Additional Past Surgical History / Comment(s): Fistula L arm, EGDs, colonoscopies, abdominal hernia repair, ivette fundoplication, ruptured gallbladder with christelle/appy and piece of bowel removed, hemorrhoidectomy, behind L ear lesion removed and another from L hand, bilateral cataract removals/lens implants. Past Anesthesia/Blood Transfusion Reactions: No Reported Reaction Additional Past Anesthesia/Blood Transfusion Reaction / Comment(s): . Date of Last Stent Placement:: 2003 Past Psychological History: No Psychological Hx Reported Smoking Status: Never smoker Past Alcohol Use History: None Reported Past Drug Use History: None Reported - Past Family History Mother Family Medical History: Cancer Additional Family Medical History / Comment(s): Mother at age 72 from BREAST CANCER Father Family Medical History: Myocardial Infarction ([place]) Additional Family Medical History / Comment(s): Father of a [place] at the age of 48 yrs. Sister(s) Family Medical History: Diabetes Mellitus Additional Family Medical History / Comment(s): Patient has one sister. P marisa's son have any brothers. Patient has 2 children with no major medical problems. Medications and Allergies Home Medications Medication Instructions Recorded Confirmed Type Atorvastatin Calcium [Lipitor] 10 mg PO MOWEFR 11/11/14 03/17/20 History Dutasteride [Avodart] 0.5 mg PO DAILY 11/11/14 03/17/20 History Felodipine [Felodipine ER] 10 mg PO SUMOWEFR 11/11/14 03/17/20 History Montelukast [Singulair] 10 mg PO HS 11/11/14 03/17/20 History Beclomethasone Dipropionate [Qvar 2 puff INHALATION RT-BID 11/21/15 03/17/20 History 80 mcg/puff] Ergocalciferol [Vitamin D2 50,000 unit PO WE 11/21/15 03/17/20 History (DRISDOL)] Isosorbide Mononitrate ER [Imdur] 30 mg PO DAILY 11/21/15 03/17/20 History Torsemide [Demadex] 20 mg PO DAILY 11/21/15 03/17/20 History traMADol HCL/ACETAMINOPHEN 1 tab PO Q6H PRN 11/21/15 03/17/20 History [Ultracet 37.5-325] Febuxostat [Uloric] 80 mg PO DAILY 10/22/16 03/17/20 History Lansoprazole 30 mg PO DAILY 10/22/16 03/17/20 History Magnesium Oxide [Mag-Ox] 400 mg PO DAILY 08/27/17 03/17/20 History Metoclopramide [Reglan] 5 mg PO TID PRN 08/27/17 03/17/20 History Metoprolol Tartrate [Lopressor] 100 mg PO HS 11/03/19 03/17/20 History Sevelamer [Renvela] 1,600 mg PO HS 11/03/19 03/17/20 History Albuterol Inhaler [Ventolin Hfa 2 puff INHALATION RT-QID 02/11/20 03/17/20 History Inhaler] Omalizumab [Xolair] 150 mg SQ Q28D 02/13/20 03/17/20 History Aspirin [Adult Low Dose Aspirin EC] 81 mg PO DAILY 03/17/20 03/17/20 History B Complex W-C No.20/Folic Acid 1 mg PO HS 03/17/20 03/17/20 History [Renal Caps Softgel] Docusate Sodium [Dok] 100 mg PO BID 03/17/20 03/17/20 History Escitalopram [Lexapro] 5 mg PO HS 03/17/20 03/17/20 History Loratadine 10 mg PO HS 03/17/20 03/17/20 History Allergies Allergy/AdvReac Type Severity Reaction Status Date / Time diphenhydramine HCl Allergy Confusion Verified 03/17/20 12:42 [From Junie] Physical Exam Vitals: Vital Signs Temp Pulse Resp BP Pulse Ox 03/17/20 13:00 66 18 132/56 99 03/17/20 11:33 58 L 18 151/84 99 03/17/20 10:24 98.8 F 65 20 140/63 96 Intake and Output 03/16/20 03/17/20 03/17/20 22:59 06:59 14:59 Other: Weight 113.398 kg Results - Lab Results Most recent lab results Calcium 9.6 mg/dL (8.4-10.2) 03/17/20 11:15 Magnesium 2.0 mg/dL (1.6-2.3) 03/17/20 11:15 03/17/20 11:15 03/17/20 11:15 Assessment and Plan Plan: Assessment: 1. End-stage renal disease maintained on hemodialysis on Thursday schedule via left approximately AV fistula. 2. Status post fall. 3. Hypertension with chronic kidney disease. Controlled. 4. Chronic kidney disease mineral bone disease maintained on Renvela outpatient. Plan: Hemodialysis today with goal 2 liters ultrafiltration. Resume home medications. Follow-up cultures. Thank you for the consultation. I will continue to follow the patient with you during his hospital stay.
[2020-03-17] MEDS ORDERED: traMADol-ACETAMINOP 37.5-325MG 1 EACH TAB PO PRN (15:52)
--- NOTE | 2020-03-17 15:52 | P.HPIM ---
History of Present Illness H&P Date: 03/17/20 This is a 74-year-old male one my patient with a previous medical history significant for hypertension and hypertensive cardiovascular disease, hyperlipidemia, insulin and Zestril hemodialysis Thursday and Thursday, history of asthma/COPD, history of CAD post-PCI, history of ankylosing spondylitis, obstructive sleep apnea on a CPAP, patient was supposed to go to dialysis today, he woke up in the morning and he went to have a shower, as he was getting out he lost his balance he ended up falling forward on the floor he could not get up, his came to see him down in the basement and she called EMS who brought the patient to the emergency room for evaluation, patient was maynard pposed to have a computed tomography scan of the brain with and without contrast next week for evaluation of recurrent falls, patient has been having recurrent falls over the last 6 month more than 7-8 falls without any acute injuries, patient apparently seems to be losing his balance sometimes he falls forward and sometimes backward, he also has been depressed since his dog got diagnosed with a renal failure, and he has been having some short-term memory loss as well. patient denies any syncope at this point he denies any head injury at this point, he has no chest pain or shortness breath he denies any palpitation the same time, he was seen and evaluated in the emergency department at [facility] he had a computed tomography scan of the brain that did not show any evidence of acute abnormalities, patient is being dialyzed in the emergency Department right now and he will be admitted to the hospital for evaluation by neurology physical therapy and occupational therapy, likely the patient will require subacute rehabilitation for muscle strengthening exercises. Review of Systems Constitutional: Reports fatigue, Reports weakness, Denies anorexia, Denies chronic headaches, Denies chronic pain, Denies weight gain, Denies weight loss Eyes: denies blurred vision, denies bulging eye, denies decreased vision Ears: bilateral: decreased hearing Ears, nose, mouth and throat: Denies dysphagia, Denies neck lump, Denies sore throat Cardiovascular: Reports decreased exercise tolerance, Reports dyspnea on exertion, Reports shortness of breath, Denies chest pain, Denies leg edema, Denies lightheadedness, Denies rapid heart beat, Denies syncope Respiratory: Reports sleep apnea, Denies congestion, Denies cough with sputum, Denies home oxygen, Denies snoring, Denies wheezing Gastrointestinal: Denies abdominal pain, Denies BRBPR, Denies change in bowel habits, Denies heartburn, Denies hematemesis, Denies hematochezia, Denies nausea, Denies vomiting Genitourinary: Reports nocturia, Denies dysuria Musculoskeletal: Reports frequent falls, Reports limitation of motion, Reports morning stiffness, Denies shooting arm pain, Denies shooting leg pain Musculoskeletal: absent: ankle pain, ankle stiffness, ankle swelling, elbow pain, elbow stiffness, elbow swelling, foot pain, foot stiffness, foot swelling, hand pain, hand stiffness, hand swelling, hip pain, hip stiffness, hip swelling, knee pain, knee stiffness, knee swelling, shoulder pain, shoulder stiffness, shoulder swelling, wrist pain, wrist stiffness, wrist swelling Integumentary: Denies pruritus, Denies rash Neurological: Reports balance difficulties, Reports gait dysfunction, Reports memory loss, Reports weakness, Denies head injury, Denies headaches, Denies motor disturbance, Denies numbness, Denies paralysis, Denies syncope, Denies tingling, Denies transient paralysis, Denies tremors, Denies vertigo Psychiatric: Reports depression, Denies anxiety, Denies paranoia, Denies sadness/tearfulness, Denies sleep disturbances, Denies suicidal ideation Endocrine: Denies fatigue, Denies weight change Past Medical History Past Medical History: Asthma, Coronary Artery Disease (CAD), Cancer, Heart Failure, COPD, GERD/Reflux, Hearing Disorder / Deafness, Hyperlipidemia, Hypertension, Osteoarthritis (OA), Prostate Disorder, Renal Disease, Sleep Apnea/CPAP/BIPAP Additional Past Medical History / Comment(s): ESRD with hemodialysis on //Thu, anemia, BPH, bronchitis, chronic low back pain, ankylosing spondylosis, gout in ankles in past, concepcion's esophagus, colon polyp, hemorrhoids, behind L ear basal cell skin cancer with removal, L hand squamous cell skin cancer removal, JF with Bipap, bilateral tinnitis, CHF per 2017 medical record but pt does not recall. History of Any Multi-Drug Resistant Organisms: None Reported Past Surgical History: Appendectomy, Cholecystectomy, Heart Catheterization, Heart Catheterization With Stent, Hernia Repair Additional Past Surgical History / Comment(s): Fistula L arm, EGDs, colonoscopies, abdominal hernia repair, ivette fundoplication, ruptured gallbladder with christelle/appy and piece of bowel removed, hemorrhoidectomy, behind L ear lesion removed and another from L hand, bilateral cataract removals/lens implants. Past Anesthesia/Blood Transfusion Reactions: No Reported Reaction Additional Past Anesthesia/Blood Transfusion Reaction / Comment(s): . Date of Last Stent Placement:: 2003 Past Psychological History: No Psychological Hx Reported Smoking Status: Never smoker Past Alcohol Use History: None Reported Past Drug Use History: None Reported - Past Family History Mother Family Medical History: Cancer Additional Family Medical History / Comment(s): Mother at age 72 from BREAST CANCER Father Family Medical History: Myocardial Infarction (PA) Additional Family Medical History / Comment(s): Father of a PA at the age of 48 yrs. Sister(s) Family Medical History: Diabetes Mellitus Additional Family Medical History / Comment(s): Patient has one sister. Patient's son have any brothers. Patient has 2 children with no major medical problems. Medications and Allergies Home Medications Medication Instructions Recorded Confirmed Type Atorvastatin Calcium [Lipitor] 10 mg PO MOWEFR 11/11/14 03/17/20 History Dutasteride [Avodart] 0.5 mg PO DAILY 11/11/14 03/17/20 History Felodipine [Felodipine ER] 10 mg PO SUMOWEFR 11/11/14 03/17/20 History Montelukast [Singulair] 10 mg PO HS 11/11/14 03/17/20 History Beclomethasone Dipropionate [Qvar 2 puff INHALATION RT-BID 11/21/15 03/17/20 History 80 mcg/puff] Ergocalciferol [Vitamin D2 50,000 unit PO WE 11/21/15 03/17/20 History (DRISDOL)] Isosorbide Mononitrate ER [Imdur] 30 mg PO DAILY 11/21/15 03/17/20 History Torsemide [Demadex] 20 mg PO DAILY 11/21/15 03/17/20 History traMADol HCL/ACETAMINOPHEN 1 tab PO Q6H PRN 11/21/15 03/17/20 History [Ultracet 37.5-325] Febuxostat [Uloric] 80 mg PO DAILY 10/22/16 03/17/20 History Lansoprazole 30 mg PO DAILY 10/22/16 03/17/20 History Magnesium Oxide [Mag-Ox] 400 mg PO DAILY 08/27/17 03/17/20 History Metoclopramide [Reglan] 5 mg PO TID PRN 08/27/17 03/17/20 History Metoprolol Tartrate [Lopressor] 100 mg PO HS 11/03/19 03/17/20 History Sevelamer [Renvela] 1,600 mg PO HS 11/03/19 03/17/20 History Albuterol Inhaler [Ventolin Hfa 2 puff INHALATION RT-QID 02/11/20 03/17/20 History Inhaler] Omalizumab [Xolair] 150 mg SQ Q28D 02/13/20 03/17/20 History Aspirin [Adult Low Dose Aspirin EC] 81 mg PO DAILY 03/17/20 03/17/20 History B Complex W-C No.20/Folic Acid 1 mg PO HS 03/17/20 03/17/20 History [Renal Caps Softgel] Docusate Sodium [Dok] 100 mg PO BID 03/17/20 03/17/20 History Escitalopram [Lexapro] 5 mg PO HS 03/17/20 03/17/20 History Loratadine 10 mg PO HS 03/17/20 03/17/20 History Allergies Allergy/AdvReac Type Severity Reaction Status Date / Time diphenhydramine HCl Allergy Confusion Verified 03/17/20 12:42 [From Benadryl] Physical Exam Vitals: Vital Signs Temp Pulse Resp BP Pulse Ox 03/17/20 14:00 86 20 180/86 94 L 03/17/20 13:00 66 18 132/56 99 03/17/20 11:33 58 L 18 151/84 99 03/17/20 10:24 98.8 F 65 20 140/63 96 Intake and Output 03/17/20 03/17/20 03/17/20 06:59 14:59 22:59 Other: Weight 113.398 kg Physical examination: HEENT: Head is atraumatic, normocephalic, pupils were equal round reactive to light and a completion, extraocular muscle movement intact, mucous membranes of the mouth are moist. Neck: Supple, no JVP, no carotid bruit. Chest: Decreased breath sound at the bases, few rhonchi, no expiratory wheezes, no chest wall tenderness, no intercostal retractions. Heart: First heart sound is depressed, second heart sound is normal, there is systolic ejection murmur 2/6 located in the left sternal border. Abdomen: Soft nontender nondistended, positive bowel sounds. Extremities: There is no edema, no calf tenderness, dorsalis pedis +2 bilaterally. Neurologic examination: Patient is awake alert and oriented 3, cranial nerves III-12 appear grossly intact, muscle power 4-5 in upper and lower extremities bilaterally, Deep tendon reflexes were normal, Babinski's were flexor bilaterally. Results CBC & Chem 7: 03/17/20 11:15 03/17/20 11:15 Labs: Abnormal Lab Results - Last 24 Hours (Table) 03/17/20 03/17/20 Range/Units 11: 11:15 WBC 13.1 H (3.8-10.6) k/uL RBC 3.57 L (4.30-5.90) m/uL Hgb 10.7 L (13.0-17.5) gm/dL Hct 32.9 L (39.0-53.0) % Neutrophils # 11.0 H (1.3-7.7) k/uL Lymphocytes # 0.8 L (1.0-4.8) k/uL BUN 49 H (9-20) mg/dL Creatinine 5.81 H (0.66-1.25) mg/dL Glucose 123 H (74-99) mg/dL Thrombosis Risk Factor Assmnt - DVT/VTE Prophylaxis DVT/VTE Prophylaxis: Pharmacologic Prophylaxis ordered, Mechanical Prophylaxis ordered Assessment and Plan Assessment: Assessment and plan: 1. Recurrent falls with gait dysfunction and memory loss. Computed tomography scan of the brain was reviewed did not show any evidence of acute abnormality beside brain atrophy, we will admit the patient to hospital he would be evaluated by neurology, he also evaluated by physical therapy and occupational therapy, patient may require some subacute rehab in addition due to his balance difficulties, we'll keep the patient on the monitor over the next 24 hours. 2. Recent right lower lobe pneumonia. Appeared much better on the chest x-ray, there is a questionable right upper lobe infiltrate with possible interstitial infiltrate as well patient has had a chronic asthma for many years and he does not appear to have an acute pneumonia at this point in time. 3. CAD post-PCI. maintain the patient on Lipitor 10 mg orally once every day, aspirin 81 mg once every day, metoprolol 100 mg orally once every day, i sosorbide mononitrate 30 mg orally once every day. 4. Hypertension and hypertensive cardiovascular disease. Continue patient on metoprolol 100 mg orally once every day, felodipine 10 mg orally once every day. 5. Hyperlipidemia. Continue Lipitor 10 mg orally once every day. 6. Gout. Continue patient on Uloric 80 mg once every day. 7. Asthma/COPD. Continue patient on DuoNeb 3 mg nebulization 4 times every day, Pulmicort 0.5 mg nebulization twice every day, continue montelukast 10 mg orally once every day, patient used to get Xolair injections once every month. 8. Obesity with obstructive sleep apnea. Continue patient on CPAP. 9. GERD with Concepcion's esophagus. Continue lansoprazole 30 mg orally once every day. 10. vitamin D deficiency. Continue vitamin D to 50,000 units once every week. 11. Depression. Patient was taken off Zoloft and he was started on Lexapro 5 mg orally once every day about a few weeks ago. 12. Ankylosing spondylitis. Continue patient on Ultracet as needed. 13. End-stage renal disease on hemodialysis. Continue with dialysis order. 14. DVT prophylaxis. Continue heparin 5000 units subcutaneously every 8 hours. 15. GI prophylaxis. Continue with PPI. 16. Admit to inpatient. Estimate a length of stay 2 midnights. 17. Patient's full code.
[2020-03-17] MEDS: HEPARIN SODIUM,PORCINE 5,000 UNIT/ML 1 ML VIAL SQ SCH ×2 (18:22→23:34)
[2020-03-17] MEDS: FLUTICASONE 110 MCG INHALER INHALATION SCH (19:23)
[2020-03-17] MEDS: METOPROLOL TARTRATE 50 MG TAB PO SCH (22:04)
[2020-03-17] MEDS: SEVELAMER 800 MG TAB PO SCH (22:05)
[2020-03-17] MEDS: FOLIC ACID-VIT B COMPLEX-VIT C 1 CAP PO SCH (22:05)
[2020-03-17] MEDS: LORATADINE 10 MG TAB PO SCH (22:05)
[2020-03-17] MEDS: MONTELUKAST 10 MG TAB PO SCH (22:05)
[2020-03-17] MEDS: DOCUSATE 100 MG CAP PO SCH (22:05)
[2020-03-17] MEDS: ESCITALOPRAM 5 MG TAB PO SCH (22:06)
[2020-03-18 07:32] LABS: Basophils # (A) 0.1 k/uL (0-0.2); Basophils % (A) 1 %; Eosinophils # (A) 0.3 k/uL (0-0.7); Eosinophils % (A) 3 %; HCT 33.5 % (39.0-53.0); HGB 11.1 gm/dL (13.0-17.5); Hypochromasia Slight; Lymphocytes # (A) 1.6 k/uL (1.0-4.8); Lymphocytes % (A) 17 %; MCH 30.3 pg (25.0-35.0); MCHC 33.1 g/dL (31.0-37.0); MCV 91.8 fL (80.0-100.0); Mean Platelet Volume 7.2; Monocytes # (A) 0.7 k/uL (0-1.0); Monocytes % (A) 7 %; Neutrophils % (A) 73 %; Platelet Count 196 k/uL (150-450); RBC 3.65 m/uL (4.30-5.90); RDW 15.4 % (11.5-15.5); WBC 9.7 k/uL (3.8-10.6)
[2020-03-18 07:46] LABS: ALT 12 U/L (4-49); AST 18 U/L (17-59); African American GFR (CKD) 12 (>60 ml/min/1.73 sqM); Albumin 3.7 g/dL (3.5-5.0); Alkaline Phosphatase 90 U/L (38-126); Anion Gap 10 mmol/L; Blood Urea Nitrogen 38 mg/dL (9-20); Calcium 9.6 mg/dL (8.4-10.2); Carbon Dioxide 28 mmol/L (22-30); Chloride 98 mmol/L (98-107); Glucose 94 mg/dL (74-99); Non-African American GFR(CKD) 10 (>60 ml/min/1.73 sqM); Potassium 3.8 mmol/L (3.5-5.1); Sodium 136 mmol/L (137-145); Total Bilirubin 0.5 mg/dL (0.2-1.3); Total Protein 7.3 g/dL (6.3-8.2)
[2020-03-18] MEDS: HEPARIN SODIUM,PORCINE 5,000 UNIT/ML 1 ML VIAL SQ SCH ×2 (08:16→16:08)
[2020-03-18] MEDS: FINASTERIDE 5 MG TAB PO SCH (08:17)
[2020-03-18] MEDS: TORSEMIDE 20 MG TAB PO SCH (08:17)
[2020-03-18] MEDS: amLODIPine 10 MG TAB PO SCH (08:17)
[2020-03-18] MEDS: ISOSORBIDE MONONITRATE ER 30 MG TAB.ER.24H PO SCH (08:17)
[2020-03-18] MEDS: DOCUSATE 100 MG CAP PO SCH ×2 (08:17→20:38)
[2020-03-18] MEDS: PANTOPRAZOLE 40 MG TABLET PO SCH (08:17)
[2020-03-18] MEDS: MAGNESIUM OXIDE 400 MG TAB PO SCH (08:17)
[2020-03-18] MEDS: ALLOPURINOL 100 MG TAB PO SCH (08:17)
[2020-03-18] MEDS: ASPIRIN 81 MG PO SCH (08:17)
[2020-03-18] MEDS: FLUTICASONE 110 MCG INHALER INHALATION SCH ×2 (08:21→21:36)
--- NOTE | 2020-03-18 10:44 | P.PN ---
Subjective Progress Note Date: 03/18/20 This is a 74-year-old male one my patient with a previous medical history significant for hypertension and hypertensive cardiovascular disease, hyperlipidemia, insulin and Zestril hemodialysis Thursday and Thursday, history of asthma/COPD, history of CAD post-PCI, history of ankylosing s pondylitis, obstructive sleep apnea on a CPAP, patient was supposed to go to dialysis today, he woke up in the morning and he went to have a shower, as he was getting out he lost his balance he ended up falling forward on the floor he could not get up, his came to see him down in the basement and she called EMS who brought the patient to the emergency room for evaluation, patient was supposed to have a computed tomography scan of the brain with and without contrast next week for evaluation of recurrent falls, patient has been having recurrent falls over the last 6 month more than 7-8 falls without any acute injuries, patient apparently seems to be losing his balance sometimes he falls f orward and sometimes backward, he also has been depressed since his dog got diagnosed with a renal failure, and he has been having some short-term memory loss as well. patient denies any syncope at this point he denies any head injury at this point, he has no chest pain or shortness breath he denies any palpitation the same time, he was seen and evaluated in the emergency department at [facility] he had a computed tomography scan of the brain that did not show any evidence of acute abnormalities, patient is being dialyzed in the emergency Department right now and he will be admitted to the hospital for evaluation by neurology physical therapy and occupational therapy, likely the pa tient will require subacute rehabilitation for muscle strengthening exercises. 03/18: Patient is laying down in bed he continues to be a bit confused however he is oriented to time and person, he has no headache, no blurred vision, he denies any chest pain, or shortness breath, he has no abdominal pain, he underwent dialysis yesterday, he appears a dry weight, he denies any poor appetite, he did have his breakfast today, he would be seen by physical therapy tomorrow morning he has not seen neurology yet. Objective - Vital Signs Vital signs: Vital Signs Temp 98.5 F 03/18/20 07:43 Pulse 56 L 03/18/20 07:43 Resp 16 03/18/20 07:43 BP 170/72 03/18/20 07:43 Pulse Ox 91 L 03/18/20 07:43 Intake & Output 03/17/20 03/18/20 03/18/20 18:59 06:59 18:59 Output Total 2700 100 Balance -2700 -100 Weight 113.398 kg Output: Urine 100 Hemodialysis 2700 Other: Voiding Method Toilet Urinal # Voids 1 # Bowel Movements 1 - Exam Review of Systems Constitutional: Reports fatigue, Reports weakness, Denies anorexia, Denies chronic headaches, Denies chronic pain, Denies weight gain, Denies weight loss Eyes: denies blurred vision, denies bulging eye, denies decreased vision Ears: bilateral: decreased hearing Ears, nose, mouth and throat: Denies dysphagia, Denies neck lump, Denies sore throat Cardiovascular: Reports decreased exercise tolerance, Reports dyspnea on exertion, Reports shortness of breath, Denies chest pain, Denies leg edema, Denies lightheadedness, Denies rapid heart beat, Denies syncope Respiratory: Reports sleep apnea, Denies congestion, Denies cough with sputum, Denies home oxygen, Denies snoring, Denies wheezing Gastrointestinal: Denies abdominal pain, Denies BRBPR, Denies change in bowel habits, Denies heartburn, Denies hematemesis, Denies hematochezia, Denies nausea, Denies vomiting Genitourinary: Reports nocturia, Denies dysuria Musculoskeletal: Reports frequent falls, Reports limitation of motion, Reports morning stiffness, Denies shooting arm pain, Denies shooting leg pain Musculoskeletal: absent: ankle pain, ankle stiffness, ankle swelling, elbow pain, elbow stiffness, elbow swelling, foot pain, foot stiffness, foot swelling, hand pain, hand stiffness, hand swelling, hip pain, hip stiffness, hip swelling, knee pain, knee stiffness, knee swelling, shoulder pain, shoulder stiffness, shoulder swelling, wrist pain, wrist stiffness, wrist swelling Integumentary: Denies pruritus, Denies rash Neurological: Reports balance difficulties, Reports gait dysfunction, Reports m pedro luis loss, Reports weakness, Denies head injury, Denies headaches, Denies motor disturbance, Denies numbness, Denies paralysis, Denies syncope, Denies tingling, Denies transient paralysis, Denies tremors, Denies vertigo Psychiatric: Reports depression, Denies anxiety, Denies paranoia, Denies sadness/tearfulness, Denies sleep disturbances, Denies suicidal ideation Endocrine: Denies fatigue, Denies weight change Physical examination: HEENT: Head is atraumatic, normocephalic, pupils were equal round reactive to light and a completion, extraocular muscle movement intact, mucous membranes of the mouth are moist. Neck: Supple, no JVP, no carotid bruit. Chest: Decreased breath sound at the bases, few rhonchi, no expiratory wheezes, no chest wall tenderness, no intercostal retractions. Heart: First heart sound is depressed, second heart sound is normal, there is systolic ejection murmur 2/6 located in the left sternal border. Abdomen: Soft nontender nondistended, positive bowel sounds. Extremities: There is no edema, no calf tenderness, dorsalis pedis +2 bilaterally. Neurologic examination: Patient is awake alert and oriented 3, cranial nerves III-12 appear grossly intact, muscle power 4-5 in upper and lower extremities bilaterally, Deep tendon reflexes were normal, Babinski's were flexor bilaterally. - Labs CBC & Chem 7: 03/18/20 06:31 03/18/20 06:31 Labs: Abnormal Lab Results - Last 24 Hours (Table) 03/17/20 03/17/20 03/18/20 Range/Units 11:15 11:15 06:31 WBC 13.1 H (3.8-10.6) k/uL RBC 3.57 L 3.65 L (4.30-5.90) m/uL Hgb 10.7 L 11.1 L (13.0-17.5) gm/dL Hct 32.9 L 33.5 L (39.0-53.0) % Neutrophils # 11.0 H (1.3-7.7) k/uL Lymphocytes # 0.8 L (1.0-4.8) k/uL Sodium (137-145) mmol/L BUN 49 H (9-20) mg/dL Creatinine 5.81 H (0.66-1.25) mg/dL Glucose 123 H (74-99) mg/dL 03/18/20 Range/Units 06:31 WBC (3.8-10.6) k/uL RBC (4.30-5.90) m/uL Hgb (13.0-17.5) gm/dL Hct (39.0-53.0) % Neutrophils # (1.3-7.7) k/uL Lymphocytes # (1.0-4.8) k/uL Sodium 136 L (137-145) mmol/L BUN 38 H (9-20) mg/dL Creatinine 5.13 H (0.66-1.25) mg/dL Glucose (74-99) mg/dL Assessment and Plan Assessment: Assessment and plan: 1. Recurrent falls with gait dysfunction and memory loss. Computed tomography scan of the brain was reviewed did not show any evidence of acute abnormality beside brain atrophy, physical therapy evaluation hopefully tomorrow morning, neurology evaluation is in order., Patient may need to go for an MRI of the brain with and without gadolinium. 2. Recent right lower lobe pneumonia. Appeared much better on the chest x-ray, there is a questionable right upper lobe infiltrate with possible interstitial infiltrate as well patient has had a chronic asthma for many years and he does not appear to have an acute pneumonia at this point in time. 3. CAD post-PCI. maintain the patient on Lipitor 10 mg orally once every day, aspirin 81 mg once every day, metoprolol 100 mg orally once every day, isosorbide mononitrate 30 mg orally once every day. 4. Hypertension and hypertensive cardiovascular disease. Continue patient on metoprolol 100 mg orally once every day, felodipine 10 mg orally once every day. 5. Hyperlipidemia. Continue Lipitor 10 mg orally once every day. 6. Gout. Continue patient on Uloric 80 mg once every day. 7. Asthma/COPD. Continue patient on DuoNeb 3 mg nebulization 4 times every day, Pulmicort 0.5 mg nebulization twice every day, continue montelukast 10 mg orally once every day, patient used to get Xolair injections once every month. 8. Obesity with obstructive sleep apnea. Continue patient on CPAP. 9. GERD with Prabhakar's esophagus. Continue lansoprazole 30 mg orally once every day. 10. vitamin D deficiency. Continue vitamin D to 50,000 units once every week. 11. Depression. Patient was taken off Zoloft and he was started on Lexapro 5 mg orally once every day about a few weeks ago. 12. Ankylosing spondylitis. Continue patient on Ultracet as needed. 13. End-stage renal disease on hemodialysis. Continue with dialysis order. 14. DVT prophylaxis. Continue heparin 5000 units subcutaneously every 8 hours. 15. GI prophylaxis. Continue with PPI. 16. Likely subacute rehab.
--- NOTE | 2020-03-18 11:10 | P.PN ---
Subjective Patient is seen in follow-up for end-stage renal disease. He is maintained on hemodialysis on Thursday schedule. Tolerated hemodialysis well yesterday with 2.7 L ultrafiltration. Denies chest pain or shortness of breath. Hemodynamically stable. No vomiting or diarrhea. Vital signs are stable. General: The patient appeared well nourished and normally developed. HEENT: Head exam is unremarkable. Neck is without jugular venous distension. LUNGS: Lungs are clear to auscultation and percussion. Breath sounds decreased. HEART: Rate and Rhythm are regular. ABDOMEN: Soft, nontender. EXTREMITITES: No edema. Objective - Vital Signs Vital signs: Vital Signs Temp 98.5 F 03/18/20 07:43 Pulse 56 L 03/18/20 07:43 Resp 16 03/18/20 07:43 BP 170/72 03/18/20 07:43 Pulse Ox 91 L 03/18/20 07:43 Intake & Output 03/17/20 03/18/20 03/18/20 18:59 06:59 18:59 Output Total 2700 100 Balance -2700 -100 Weight 113.398 kg Output: Urine 100 Hemodialysis 2700 Other: Voiding Method Toilet Urinal # Voids 1 # Bowel Movements 1 - Labs CBC & Chem 7: 03/18/20 06:31 03/18/20 06:31 Labs: Abnormal Lab Results - Last 24 Hours (Table) 03/17/20 03/17/20 03/18/20 Range/Units 11:15 11:15 06:31 WBC 13.1 H (3.8-10.6) k/uL RBC 3.57 L 3.65 L (4.30-5.90) m/uL Hgb 10.7 L 11.1 L (13.0-17.5) gm/dL Hct 32.9 L 33.5 L (39.0-53.0) % Neutrophils # 11.0 H (1.3-7.7) k/uL Lymphocytes # 0.8 L (1.0-4.8) k/uL Sodium (137-145) mmol/L BUN 49 H (9-20) mg/dL Creatinine 5.81 H (0.66-1.25) mg/dL Glucose 123 H (74-99) mg/dL 03/18/20 Range/Units 06:31 WBC (3.8-10.6) k/uL RBC (4.30-5.90) m/uL Hgb (13.0-17.5) gm/dL Hct (39.0-53.0) % Neutrophils # (1.3-7.7) k/uL Lymphocytes # (1.0-4.8) k/uL Sodium 136 L (137-145) mmol/L BUN 38 H (9-20) mg/dL Creatinine 5.13 H (0.66-1.25) mg/dL Glucose (74-99) mg/dL Assessment and Plan Plan: Assessment: 1. End-stage renal disease maintained on hemodialysis on Thursday schedule via left approximately AV fistula. 2. Status post fall. 3. Hypertension with chronic kidney disease. 4. Chronic kidney disease mineral bone disease maintained on Renvela outpatient. Plan: Hemodialysis on Thursday. Check orthostatic vital signs. Avoid hypotension.
[2020-03-18] MEDS: LORATADINE 10 MG TAB PO SCH (20:38)
[2020-03-18] MEDS: METOPROLOL TARTRATE 50 MG TAB PO SCH (20:38)
[2020-03-18] MEDS: MONTELUKAST 10 MG TAB PO SCH (20:38)
[2020-03-18] MEDS: ESCITALOPRAM 5 MG TAB PO SCH (21:03)
[2020-03-18] MEDS: SEVELAMER 800 MG TAB PO SCH (21:03)
[2020-03-18] MEDS: FOLIC ACID-VIT B COMPLEX-VIT C 1 CAP PO SCH (21:04)
[2020-03-19] MEDS: HEPARIN SODIUM,PORCINE 5,000 UNIT/ML 1 ML VIAL SQ SCH ×4 (01:56→23:40)
[2020-03-19] MEDS: FLUTICASONE 110 MCG INHALER INHALATION SCH ×2 (07:53→20:47)
[2020-03-19 07:59] LABS: Basophils # (A) 0.1 k/uL (0-0.2); Basophils % (A) 1 %; Eosinophils # (A) 0.3 k/uL (0-0.7); Eosinophils % (A) 3 %; HCT 34.5 % (39.0-53.0); HGB 10.7 gm/dL (13.0-17.5); Lymphocytes # (A) 1.7 k/uL (1.0-4.8); Lymphocytes % (A) 17 %; MCH 27.9 pg (25.0-35.0); MCV 90.3 fL (80.0-100.0); Mean Platelet Volume 7.3; Monocytes # (A) 0.7 k/uL (0-1.0); Monocytes % (A) 7 %; Neutrophils # (A) 7.1 k/uL (1.3-7.7); Neutrophils % (A) 72 %; Platelet Count 216 k/uL (150-450); RBC 3.83 m/uL (4.30-5.90); RDW 15.4 % (11.5-15.5); WBC 9.9 k/uL (3.8-10.6)
[2020-03-19 08:10] LABS: Calcium 9.5 mg/dL (8.4-10.2)
[2020-03-19] MEDS: DOCUSATE 100 MG CAP PO SCH ×2 (08:20→21:00)
[2020-03-19] MEDS: PANTOPRAZOLE 40 MG TABLET PO SCH (08:20)
[2020-03-19] MEDS: ISOSORBIDE MONONITRATE ER 30 MG TAB.ER.24H PO SCH (08:20)
[2020-03-19] MEDS: MAGNESIUM OXIDE 400 MG TAB PO SCH (08:20)
[2020-03-19] MEDS: TORSEMIDE 20 MG TAB PO SCH (08:20)
[2020-03-19] MEDS: ALLOPURINOL 100 MG TAB PO SCH (08:20)
[2020-03-19] MEDS: FINASTERIDE 5 MG TAB PO SCH (08:20)
[2020-03-19] MEDS: ASPIRIN 81 MG PO SCH (08:20)
[2020-03-19] MEDS: amLODIPine 10 MG TAB PO SCH (08:22)
--- NOTE | 2020-03-19 09:45 | P.PN ---
Subjective Patient is seen in follow-up for end-stage renal disease. He is maintained on hemodialysis on Thursday schedule. Tolerated hemodialysis well on Thursday with 2.7 L ultrafiltration. Denies chest pain or shortness of breath. Hemodynamically stable. No vomiting or diarrhea. Vital signs are stable. General: The patient appeared well nourished and normally developed. HEENT: Head exam is unremarkable. Neck is without jugular venous distension. LUNGS: Lungs are clear to auscultation and percussion. Breath sounds decreased. HEART: Rate and Rhythm are regular. ABDOMEN: Soft, nontender. EXTREMITITES: No edema. Objective - Vital Signs Vital signs: Vital Signs Temp 98.0 F 03/19/20 07:00 Pulse 69 03/19/20 07:00 Resp 17 03/19/20 07:00 BP 171/76 03/19/20 07:00 Pulse Ox 97 03/19/20 07:00 Intake & Output 03/18/20 03/19/20 03/19/20 18:59 06:59 18:59 Output Total 300 Balance -300 Output: Urine 300 Other: Voiding Method Toilet Urinal # Voids 1 # Bowel Movements 1 - Labs CBC & Chem 7: 03/19/20 06:05 03/19/20 06:05 Labs: Abnormal Lab Results - Last 24 Hours (Table) 03/19/20 03/19/20 Range/Units 06:05 06:05 RBC 3.83 L (4.30-5.90) m/uL Hgb 10.7 L (13.0-17.5) gm/dL Hct 34.5 L (39.0-53.0) % Sodium 136 L (137-145) mmol/L BUN 55 H (9-20) mg/dL Creatinine 6.90 H (0.66-1.25) mg/dL Microbiology - Last 24 Hours (Table) 03/17/20 12:16 Blood Culture - Preliminary Blood No Growth after 24 hours Assessment and Plan Plan: Assessment: 1. End-stage renal disease maintained on hemodialysis on Thursday schedule via left approximately AV fistula. 2. Status post fall. 3. Hypertension with chronic kidney disease. 4. Chronic kidney disease mineral bone disease maintained on Renvela outpatient. Plan: Hemodialysis on Thursday. Check orthostatic vital signs - to be done this morning. Avoid hypotension.
--- NOTE | 2020-03-19 10:24 | P.PN ---
Subjective Progress Note Date: 03/19/20 This is a 74-year-old male one my patient with a previous medical history significant for hypertension and hypertensive cardiovascular disease, hyperlipidemia, insulin and Zestril hemodialysis Thursday and Thursday, history of asthma/COPD, history of CAD post-PCI, history of ankylosing s pondylitis, obstructive sleep apnea on a CPAP, patient was supposed to go to dialysis today, he woke up in the morning and he went to have a shower, as he was getting out he lost his balance he ended up falling forward on the floor he could not get up, his came to see him down in the basement and she called EMS who brought the patient to the emergency room for evaluation, patient was supposed to have a computed tomography scan of the brain with and without contrast next week for evaluation of recurrent falls, patient has been having recurrent falls over the last 6 month more than 7-8 falls without any acute injuries, patient apparently seems to be losing his balance sometimes he falls f orward and sometimes backward, he also has been depressed since his dog got diagnosed with a renal failure, and he has been having some short-term memory loss as well. patient denies any syncope at this point he denies any head injury at this point, he has no chest pain or shortness breath he denies any palpitation the same time, he was seen and evaluated in the emergency department at [facility] he had a computed tomography scan of the brain that did not show any evidence of acute abnormalities, patient is being dialyzed in the emergency Department right now and he will be admitted to the hospital for evaluation by neurology physical therapy and occupational therapy, likely the pa agatha will require subacute rehabilitation for muscle strengthening exercises. 03/18: Patient is laying down in bed he continues to be a bit confused however he is oriented to time and person, he has no headache, no blurred vision, he denies any chest pain, or shortness breath, he has no abdominal pain, he underwent dialysis yesterday, he appears a dry weight, he denies any poor appetite, he did have his breakfast today, he would be seen by physical therapy tomorrow morning he has not seen neurology yet. 03/19: Patient states that he has had cough is nonproductive. He denies any chest pain or shortness of breath. Patient states he had a loose bowel movement, appetite is good. PT and OT to start working with the patient as he may require subacute rehab. Patient is followed by nephrology on hemodialysis Thursday schedule. He underwent dialysis on Thursday with a width 2.7 L removed. He is scheduled for his next hemodialysis on Thursday. Orthostatic vital signs to be checked. Patient's been afebrile, heart rate 69, blood pressure 171/76 and pulse ox 97% on room air. Hemoglobin 10.7. BUN 55 creatinine 6.9, sodium 136, potassium 4.0. Obtain neurology consult today, PT and OT and probable discharge to [facility] on Thursday. Objective - Vital Signs Vital signs: Vital Signs Temp 98.0 F 03/19/20 07:00 Pulse 69 03/19/20 07:00 Resp 17 03/19/20 07:00 BP 171/76 03/19/20 07:00 Pulse Ox 97 03/19/20 07:00 Intake & Output 03/18/20 03/19/20 03/19/20 18:59 06:59 18:59 Output Total 300 Balance -300 Output: Urine 300 Other: Voiding Method Toilet Urinal # Voids 1 # Bowel Movements 1 - Exam Review of Systems Constitutional: Reports fatigue, Reports weakness, Denies anorexia, Denies chronic headaches, Denies chronic pain, Denies weight gain, Denies weight loss Eyes: denies blurred vision, denies bulging eye, denies decreased vision Ears: bilateral: decreased hearing Ears, nose, mouth and throat: Denies dysphagia, Denies neck lump, Denies sore throat Cardiovascular: Reports decreased exercise tolerance, Reports dyspnea on exertion, denies shortness of breath, Denies chest pain, Denies leg edema, Denies lightheadedness, Denies rapid heart beat, Denies syncope Respiratory: Reports sleep apnea, Denies congestion, reports cough denies sputum, Denies home oxygen, Denies snoring, Denies wheezing Gastrointestinal: Denies abdominal pain, Denies BRBPR, Denies change in bowel habits, Denies heartburn, Denies hematemesis, Denies hematochezia, Denies nausea, Denies vomiting Genitourinary: Reports nocturia, Denies dysuria Musculoskeletal: Reports frequent falls, Reports limitation of motion, Reports morning stiffness, Denies shooting arm pain, Denies shooting leg pain Musculoskeletal: absent: ankle pain, ankle stiffness, ankle swelling, elbow pain, elbow stiffness, elbow swelling, foot pain, foot stiffness, foot swelling, hand pain, hand stiffness, hand swelling, hip pain, hip stiffness, hip swelling, knee pain, knee stiffness, knee swelling, shoulder pain, shoulder stiffness, shoulder swelling, wrist pain, wrist stiffness, wrist swelling Integumentary: Denies pruritus, Denies rash Neurological: Reports balance difficulties, Reports gait dysfunction, Reports me erika loss, Reports weakness, Denies head injury, Denies headaches, Denies motor disturbance, Denies numbness, Denies paralysis, Denies syncope, Denies tingling, Denies transient paralysis, Denies tremors, Denies vertigo Psychiatric: Reports depression, Denies anxiety, Denies paranoia, Denies sadness/tearfulness, Denies sleep disturbances, Denies suicidal ideation Endocrine: Denies fatigue, Denies weight change Physical examination: GEN: This is a 74-year-old obese male. He is resting bed and appears to be comfortable and in no acute distress. HEENT: Head is atraumatic, normocephalic, pupils were equal round reactive to light and a completion, extraocular muscle movement intact, mucous membranes of the mouth are moist. Neck: Supple, no JVP, no carotid bruit. Chest: Decreased breath sound at the bases, few rhonchi, no expiratory wheezes, no chest wall tenderness, no intercostal retractions. No accessory muscle usage. Heart: First heart sound is depressed, second heart sound is normal, there is systolic ejection murmur 2/6 located in the left sternal border. Abdomen: Soft nontender nondistended, positive bowel sounds. Extremities: There is no edema, no calf tenderness, dorsalis pedis +2 bilaterally. Neurologic examination: Patient is awake alert and oriented 3, cranial nerves III-12 appear grossly intact, muscle power 4-5 in upper and lower extremities bilaterally, Deep tendon reflexes were normal, Babinski's were flexor bilaterally. - Labs CBC & Chem 7: 03/19/20 06:05 03/19/20 06:05 Labs: Abnormal Lab Results - Last 24 Hours (Table) 03/18/20 Range/Units 06:31 Sodium 136 L (137-145) mmol/L BUN 38 H (9-20) mg/dL Creatinine 5.13 H (0.66-1.25) mg/dL Microbiology - Last 24 Hours (Table) 03/17/20 12:16 Blood Culture - Preliminary Blood No Growth after 24 hours Assessment and Plan Plan: 1. Recurrent falls with gait dysfunction and memory loss. Computed tomography scan of the brain was reviewed did not show any evidence of acute abnormality beside brain atrophy, physical therapy evaluation, neurology evaluation. Patient may need to go for an MRI of the brain with and without gadolinium. 2. Recent right lower lobe pneumonia. Appeared much better on the chest x-ray, there is a questionable right upper lobe infiltrate with possible interstitial infiltrate as well patient has had a chronic asthma for many years and he does not appear to have an acute pneumonia at this point in time. 3. CAD post-PCI. maintain the patient on Lipitor 10 mg orally once every day, aspirin 81 mg once every day, metoprolol 100 mg orally once every day, isosorbide mononitrate 30 mg orally once every day. 4. Hypertension and hypertensive cardiovascular disease. Continue patient on metoprolol 100 mg orally once every day, felodipine 10 mg orally once every day. 5. Hyperlipidemia. Continue Lipitor 10 mg orally once every day. 6. Gout, chronic. Continue patient on Uloric 80 mg once every day. 7. Asthma moderate intermittent/COPD. Continue patient on DuoNeb 3 mg nebulization 4 times every day, Pulmicort 0.5 mg nebulization twice every day, continue montelukast 10 mg orally once every day, patient used to get Xolair in jections once every month. 8. Obesity with obstructive sleep apnea. Continue patient on CPAP. 9. GERD with Prabhakar's esophagus. Continue lansoprazole 30 mg orally once every day. 10. vitamin D deficiency. Continue vitamin D to 50,000 units once every week. 11. Recurrent Depression. Patient was taken off Zoloft and he was started on Lexapro 5 mg orally once every day about a few weeks ago. 12. Ankylosing spondylitis. Continue patient on Ultracet as needed. 13. End-stage renal disease on hemodialysis. Continue with dialysis order. 14. DVT prophylaxis. Continue heparin 5000 units subcutaneously every 8 hours. 15. GI prophylaxis. Continue with PPI. 16. COVID-19 infection not present. Discharge plan: on Thursday Impression and plan of care have been directed as dictated by the signing physician. Missy Manzano nurse practitioner acting as scribe for signing xandery sician.
[2020-03-19 11:53] LABS: Folate, Serum >24.0 ng/mL
--- NOTE | 2020-03-19 19:24 | P.CNNES ---
History of Present Illness Consult date: 03/19/20 Requesting physician: Missy Manzano Reason for Consult: Balance issues and falls History of Present Illness: This is a 74-year-old gentleman with medical history of hypertension, hyperlipidemia, diabetes, end-stage renal disease on dialysis, coronary artery disease status post PCI, obstructive sleep apnea status post CPAP and ankles and spondylitis who was 03/17/2020 had an episode of a fall. He went to take a show er he was getting out of his getting out loss his balance and ended up falling forward on the floor he did not be could not get up called EMS. Patient has been having recurrent falls over the last 6 months and he states that he has been falling about once a week without any acute injuries he has been losing his balance and sometimes falls backward predominantly. He denies of any neck pain any lower back pain. He denies of weakness. Denies visual disturbance. Denies urinary lower or bladder problems. He does have a walker at home for the last 6 months but he states he occasionally uses it. He cannot tell me exactly how he falls. Denies any slurred speech. Denies hearing loss. Denies palpitation of the heart. It is reported upper documentation that he has some mild short-term memory loss. During this admission the patient had CT of the head without contrast on 03/17/2020 and was reported as age-related atrophic and chronic small vessel ischemic change without acute intracranial process seen at this time. B12 level was 645. Folate was more than 24. TSH was 1.340. His EKG showed normal sinus rhythm left bundle branch block ventricular rate and 68 The patient had an echocardiogram on 02/11/2020: was reported as sinus rhythm, ejection fraction was between the 55-60%, left atrial size is normal, Past Medical History Past Medical History: Asthma, Coronary Artery Disease (CAD), Cancer, Heart Failure, COPD, GERD/Reflux, Hearing Disorder / Deafness, Hyperlipidemia, Hypertension, Osteoarthritis (OA), Prostate Disorder, Renal Disease, Sleep Apnea/CPAP/BIPAP Additional Past Medical History / Comment(s): ESRD with hemodialysis on //Thu, anemia, BPH, bronchitis, chronic low back pain, ankylosing spondylosis, gout in ankles in past, concepcion's esophagus, colon polyp, hemorrhoids, behind L ear basal cell skin cancer with removal, L hand squamous cell skin cancer removal, JF with Bipap, bilateral tinnitis, CHF per 2017 medical record but pt does not recall. History of Any Multi-Drug Resistant Organisms: None Reported Past Surgical History: Appendectomy, Cholecystectomy, Heart Catheterization, Heart Catheterization With Stent, Hernia Repair Additional Past Surgical History / Comment(s): Fistula L arm, EGDs, c olonoscopies, abdominal hernia repair, ivette fundoplication, ruptured gallbladder with christelle/appy and piece of bowel removed, hemorrhoidectomy, behind L ear lesion removed and another from L hand, bilateral cataract removals/lens implants. Past Anesthesia/Blood Transfusion Reactions: No Reported Reaction Additional Past Anesthesia/Blood Transfusion Reaction / Comment(s): . Date of Last Stent Placement:: 2003 Past Psychological History: No Psychological Hx Reported Additional Psychological History / Comment(s): Pt resides with his spouse. Pt uses walker occasionally. He drives. Past Alcohol Use History: None Reported Additional Past Alcohol Use History / Comment(s): Patient is a lifelong nonsmoker, no marijuana, no illicit drug use, no alcohol use. Patient is and lives at home with his . 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 Past Drug Use History: None Reported - Past Family History Mother Family Medical History: Cancer Additional Family Medical History / Comment(s): Mother at age 72 from BREAST CANCER Father Family Medical History: Myocardial Infarction ([place]) Additional Family Medical History / Comment(s): Father of a [place] at the age of 48 yrs. Sister(s) Family Medical History: Diabetes Mellitus Additional Family Medical History / Comment(s): Patient has one sister. Patient's son have any brothers. Patient has 2 children with no major medical problems. Medications and Allergies Home Medications Medication Instructions Recorded Confirmed Type Atorvastatin Calcium [Lipitor] 10 mg PO MOWEFR 11/11/14 03/17/20 History Dutasteride [Avodart] 0.5 mg PO DAILY 11/11/14 03/17/20 History Felodipine [Felodipine ER] 10 mg PO SUMOWEFR 11/11/14 03/17/20 History Montelukast [Singulair] 10 mg PO HS 11/11/14 03/17/20 History Beclomethasone Dipropionate [Qvar 2 puff INHALATION RT-BID 11/21/15 03/17/20 History 80 mcg/puff] Ergocalciferol [Vitamin D2 50,000 unit PO WE 11/21/15 03/17/20 History (DRISDOL)] Isosorbide Mononitrate ER [Imdur] 30 mg PO DAILY 11/21/15 03/17/20 History Torsemide [Demadex] 20 mg PO DAILY 11/21/15 03/17/20 History traMADol HCL/ACETAMINOPHEN 1 tab PO Q6H PRN 11/21/15 03/17/20 History [Ultracet 37.5-325] Febuxostat [Uloric] 80 mg PO DAILY 10/22/16 03/17/20 History Lansoprazole 30 mg PO DAILY 10/22/16 03/17/20 History Magnesium Oxide [Mag-Ox] 400 mg PO DAILY 08/27/17 03/17/20 History Metoclopramide [Reglan] 5 mg PO TID PRN 08/27/17 03/17/20 History Metoprolol Tartrate [Lopressor] 100 mg PO HS 11/03/19 03/17/20 History Sevelamer [Renvela] 1,600 mg PO HS 11/03/19 03/17/20 History Albuterol Inhaler [Ventolin Hfa 2 puff INHALATION RT-QID 02/11/20 03/17/20 History Inhaler] Omalizumab [Xolair] 150 mg SQ Q28D 02/13/20 03/17/20 History Aspirin [Adult Low Dose Aspirin EC] 81 mg PO DAILY 03/17/20 03/17/20 History B Complex W-C No.20/Folic Acid 1 mg PO HS 03/17/20 03/17/20 History [Renal Caps Softgel] Docusate Sodium [Dok] 100 mg PO BID 03/17/20 03/17/20 History Escitalopram [Lexapro] 5 mg PO HS 03/17/20 03/17/20 History Loratadine 10 mg PO HS 03/17/20 03/17/20 History Allergies Allergy/AdvReac Type Severity Reaction Status Date / Time diphenhydramine HCl Allergy Confusion Verified 03/17/20 12:42 [From Benadryl] Physical Examination - Vital Signs Vital Signs: Vital Signs Temp Pulse Resp BP BP BP Pulse Ox 03/19/20 15:41 64 18 169/72 94 L 03/19/20 15:39 18 147/82 93 L 03/19/20 14:58 97.8 F 57 L 18 170/77 99 03/19/20 08:24 69 17 03/19/20 07:00 98.0 F 69 17 171/76 97 03/19/20 02:17 98.2 F 57 L 176/68 97 03/18/20 23:14 60 16 03/18/20 19:46 98.0 F 60 16 157/80 95 Intake and Output 03/19/20 03/19/20 03/19/20 06:59 14:59 22:59 Output Total 120 Balance -120 Output: Urine 120 Other: Voiding Method Toilet Toilet Urinal Urinal # Voids 1 1 - Additional findings GENERAL: The patient is lying in bed and is not in acute distress. CHEST: The heart rate is regular rate rhythm. LUNG: Not labored breathing. ABDOMEN/GI: No tenderness to palpation throughout. NEUROLOGICAL: Higher mental function: The patient is awake, alert, oriented to self, place and time. Patient is following commands. No aphasia and no neglect. Cranial nerves: The pupils are round, equal and reactive to light and accommo dation. Visual sanchez are full to confrontation throughout. Extraocular movement is intact no nystagmus is noted. Facial sensation is normal to touch throughout. The facial strength is normal throughout. Hearing is normal bilaterally to hand rub. Tongue is midline and moved [id number] without any difficulty. No dysarthria is noted. Shoulder shrug is normal bilaterally. Motor: Gait is slow and cautious steps. The strength is 5 over 5 throughout. Normal tone and bulk. Cerebellum: Normal finger to nose bilaterally. Sensation: Sensation is normal to touch throughout. Reflexes (right/left): Biceps 2+/2+; triceps2+/2+; brachioradialis 2+/2+; patellar 3+/3+; ankles0-1 /0-1. Plantars is downgoing on the right but upgoin on left. Results - Laboratory Findings CBC and BMP: 03/19/20 06:05 03/19/20 06:05 Abnormal Lab Findings: Abnormal Labs 03/17/20 03/17/20 03/18/20 11:15 11:15 06:31 WBC 13.1 H RBC 3.57 L 3.65 L Hgb 10.7 L 11.1 L Hct 32.9 L 33.5 L Neutrophils # 11.0 H Lymphocytes # 0.8 L Sodium BUN 49 H Creatinine 5.81 H Glucose 123 H 03/18/20 03/19/20 03/19/20 06:31 06:05 06:05 WBC RBC 3.83 L Hgb 10.7 L Hct 34.5 L Neutrophils # Lymphocytes # Sodium 136 L 136 L BUN 38 H 55 H Creatinine 5.13 H 6.90 H Glucose - Diagnostic Findings Additional findings: The AST is 18 ALT is 12. PT is 11.8, INR is 1.2, APTT is 22.4. Assessment and Plan Assessment: This is a 74-year-old gentleman with with multiple medical history, hypertension, hyperlipidemia, diabetes, end-stage renal disease on dialysis, coronary artery disease status post stenting as well as ankylosing spondylitis with has been having falls for the last 6 month, he's been averaging about 1 fall per week. According to the patient he usually falls backwards. He had a recent fall and that's what brought him to the hospital. He denies of any weakness any numbness. He denies any bladder or bowel problems. Per ddocumentation was stated that he has mild short memory loss. On examination the patient had brisk patellar reflex and upgoing left toe rated at a CT of the head was read as age-related atrophic and chronic small vessel ischemic changes without acute intracranial process seen at this time. I reviewed the CT of the head I felt there is mild dilation of the lateral and third ventricles. Differential for the diagnoses is stenosis of the lumbar spine since the patient had brisk reflexes of the patella and upgoing left toe that could be the cause of his falls another consideration possibly that might be considered later on is normal pressure hydrocephalus since I felt the lateral and the third ventricle was slightly dilated as well as some short-term memory loss. Plan: We'll try to get MRI of the lumbar spine within normal without to be coordinated with dialysis. The vitamin B12 was normal there was 645. The folate was normal was somewhat and 24. TSH was normal was 1.34. The plan was discussed with the patient. We will continue to follow. Time with Patient: Greater than 30
[2020-03-19] MEDS ORDERED: ATORVASTATIN 10 MG TAB PO SCH (21:00)
[2020-03-19] MEDS: FOLIC ACID-VIT B COMPLEX-VIT C 1 CAP PO SCH (21:01)
[2020-03-19] MEDS: SEVELAMER 800 MG TAB PO SCH (21:01)
[2020-03-19] MEDS: LORATADINE 10 MG TAB PO SCH (21:01)
[2020-03-19] MEDS: MONTELUKAST 10 MG TAB PO SCH (21:01)
[2020-03-19] MEDS: METOPROLOL TARTRATE 50 MG TAB PO SCH (21:01)
[2020-03-19] MEDS: ESCITALOPRAM 5 MG TAB PO SCH (21:01)
--- NOTE | 2020-03-20 07:39 | P.DS ---
Providers Date of admission: 03/17/20 12:32 Expected date of discharge: 03/21/20 Attending physician: Jyotsna Kovacs Consults: 03/17/20 12:33 Consult Physician Routine Consulting Provider: Frank Hameed Consult Reason/Comments: ESRD Do you want consulting provider notified?: Already Contacted 03/19/20 07:46 Consult Physician Routine Consulting Provider: Alexander Beck Consult Reason/Comments: falls, memory loss Do you want consulting provider notified?: Yes Primary care physician: Jyotsna Kovacs Hospital Course: This is a 74-year-old male one my patient with a previous medical history significant for hypertension and hypertensive cardiovascular disease, hyperlipidemia, insulin and Zestril hemodialysis Thursday and Thursday, history of asthma/COPD, history of CAD post-PCI, history of ankylosing spondylitis, obstructive sleep apnea on a CPAP, patient was supposed to go to dialysis today, he woke up in the morning and he went to have a shower, as he was getting out he lost his balance he ended up falling forward on the floor he could not get up, his came to see him down in the basement and she called EMS who brought the patient to the emergency room for evaluation, patient was supposed to have a computed tomography scan of the brain with and without contrast next week for evaluation of recurrent falls, patient has been having recurrent falls over the last 6 month more than 7-8 falls without any acute injuries, patient apparently seems to be losing his balance sometimes he falls forward and sometimes backward, he also has been depressed since his dog got diagnosed with a renal failure, and he has been having some short-term memory loss as well. patient denies any syncope at this point he denies any head injury at this point, he has no chest pain or shortness breath he denies any palpitation the same time, he was seen and evaluated in the emergency department at [facility] he had a computed tomography scan of the brain that did not show any evidence of acute abnormalities, patient is being dialyzed in the emergency Department right now and he will be admitted to the hospital for evaluation by neurology physical therapy and occupational therapy, likely the patient will require subacute rehabilitation for muscle strengthening exercises. 03/18: Patient is laying down in bed he continues to be a bit confused however he is oriented to time and person, he has no headache, no blurred vision, he denies any chest pain, or shortness breath, he has no abdominal pain, he underwent dialysis yesterday, he appears a dry weight, he denies any poor appetite, he did have his breakfast today, he would be seen by physical therapy tomorrow morning he has not seen neurology yet. 03/19: Patient states that he has had cough is nonproductive. He denies any chest pain or shortness of breath. Patient states he had a loose bowel movement, appetite is good. PT and OT to start working with the patient as he may require subacute rehab. Patient is followed by nephrology on hemodialysis Thursday schedule. He underwent dialysis on Thursday with a width 2.7 L removed. He is scheduled for his next hemodialysis on Thursday. Orthostatic vital signs to be checked. Patient's been afebrile, heart rate 69, blood pressure 171/76 and pulse ox 97% on room air. Hemoglobin 10.7. BUN 55 creatinine 6.9, sodium 136, potassium 4.0. Obtain neurology consult today, PT and OT and probable discharge to [facility] on Thursday. 03/20: Patient has been seen by neurology was concern for stenosis of the lumbar spine causing his symptoms as well as possible Normal pressure hydrocephalus as a lateral and third ventricles were slightly dilated according to neurology. He is scheduled for MRI of the lumbar spine at 5 PM. Patient denies any new complaints. We'll plan to monitor overnight and discharged to rehab tomorrow. He has been afebrile, heart rate 56, blood pressure 167/75, pulse ox 95% on room air. 03/21: Repeat Covid 19 testing is negative. Patient underwent CAT scan of the cervical, thoracic and lumbar spine yesterday that showed no acute posttraumatic changes evident. Diffuse degenerative changes with exaggeration of the thoracic kyphosis. Multilevel fusion, consider ankylosing spondylitis within the differential. Patient is afebrile, heart rate 61, blood pressure 155/80, pulse ox 94% on room air. Patient will be discharge to [facility] today in stable condition. Discharge diagnoses: 1. Recurrent falls with gait dysfunction and memory loss. 2. Recent right lower lobe pneumonia. 3. CAD post-PCI. 4. Hypertension and hypertensive cardiovascular disease. 5. Hyperlipidemia. 6. Gout, chronic. 7. Asthma moderate intermittent/COPD. 8. Obesity with obstructive sleep apnea. Continue patient on CPAP. 9. GERD with Prabhakar's esophagus. 10. vitamin D deficiency. 11. Recurrent Depression. 12. Ankylosing spondylitis. 13. End-stage renal disease on hemodialysis. 14. Chronic diastolic heart failure 15. COVID-19 infection not present. Repeat testing negative. Discharge plan: Gregory under the care of Dr. Kovacs. Impression and plan of care have been directed as dictated by the signing physician. Missy Manzano nurse practitioner acting as scribe for signing physician. Patient Condition at Discharge: Good Plan - Discharge Summary Discharge Rx Participant: No New Discharge Prescriptions: Continue Montelukast [Singulair] 10 mg PO HS Atorvastatin Calcium [Lipitor] 10 mg PO MOWEFR Dutasteride [Avodart] 0.5 mg PO DAILY Felodipine [Felodipine ER] 10 mg PO SUMOWEFR Beclomethasone Dipropionate [Qvar 80 mcg/puff] 2 puff INHALATION RT-BID Ergocalciferol [Vitamin D2 (DRISDOL)] 50,000 unit PO WE Torsemide [Demadex] 20 mg PO DAILY Isosorbide Mononitrate ER [Imdur] 30 mg PO DAILY Lansoprazole 30 mg PO DAILY Febuxostat [Uloric] 80 mg PO DAILY Magnesium Oxide [Mag-Ox] 400 mg PO DAILY Metoclopramide [Reglan] 5 mg PO TID PRN PRN Reason: Nausea Metoprolol Tartrate [Lopressor] 100 mg PO HS Sevelamer [Renvela] 1,600 mg PO HS Albuterol Inhaler [Ventolin Hfa Inhaler] 2 puff INHALATION RT-QID Omalizumab [Xolair] 150 mg SQ Q28D Loratadine 10 mg PO HS Docusate Sodium [Dok] 100 mg PO BID Aspirin [Adult Low Dose Aspirin EC] 81 mg PO DAILY B Complex W-C No.20/Folic Acid [Renal Caps Softgel] 1 mg PO HS Escitalopram [Lexapro] 5 mg PO HS traMADol HCL/ACETAMINOPHEN [Ultracet 37.5-325] 1 tab PO Q6H PRN #12 tab PRN Reason: Pain Discharge Medication List Atorvastatin Calcium [Lipitor] 10 mg PO MOWEFR 11/11/14 [History] Dutasteride [Avodart] 0.5 mg PO DAILY 11/11/14 [History] Felodipine [Felodipine ER] 10 mg PO SUMOWEFR 11/11/14 [History] Montelukast [Singulair] 10 mg PO HS 11/11/14 [History] Beclomethasone Dipropionate [Qvar 80 mcg/puff] 2 puff INHALATION RT-BID 11/21/15 [History] Ergocalciferol [Vitamin D2 (DRISDOL)] 50,000 unit PO WE 11/21/15 [History] Isosorbide Mononitrate ER [Imdur] 30 mg PO DAILY 11/21/15 [History] Torsemide [Demadex] 20 mg PO DAILY 11/21/15 [History] Febuxostat [Uloric] 80 mg PO DAILY 10/22/16 [History] Lansoprazole 30 mg PO DAILY 10/22/16 [History] Magnesium Oxide [Mag-Ox] 400 mg PO DAILY 08/27/17 [History] Metoclopramide [Reglan] 5 mg PO TID PRN 08/27/17 [History] Metoprolol Tartrate [Lopressor] 100 mg PO HS 11/03/19 [History] Sevelamer [Renvela] 1,600 mg PO HS 11/03/19 [History] Albuterol Inhaler [Ventolin Hfa Inhaler] 2 puff INHALATION RT-QID 02/11/20 [History] Omalizumab [Xolair] 150 mg SQ Q28D 02/13/20 [History] Aspirin [Adult Low Dose Aspirin EC] 81 mg PO DAILY 03/17/20 [History] B Complex W-C No.20/Folic Acid [Renal Caps Softgel] 1 mg PO HS 03/17/20 [History] Docusate Sodium [Dok] 100 mg PO BID 03/17/20 [History] Escitalopram [Lexapro] 5 mg PO HS 03/17/20 [History] Loratadine 10 mg PO HS 03/17/20 [History] traMADol HCL/ACETAMINOPHEN [Ultracet 37.5-325] 1 tab PO Q6H PRN #12 tab 03/20/20 [Rx] Follow up Appointment(s)/Referral(s): Jyotsna Kovacs MD [Primary Care Provider] - 1 Week (at [facility]) Discharge Disposition: TRANSFER TO SNF/F
[2020-03-20] MEDS: PANTOPRAZOLE 40 MG TABLET PO SCH (08:08)
[2020-03-20] MEDS: MAGNESIUM OXIDE 400 MG TAB PO SCH (08:08)
[2020-03-20] MEDS: ISOSORBIDE MONONITRATE ER 30 MG TAB.ER.24H PO SCH (08:09)
[2020-03-20] MEDS: FINASTERIDE 5 MG TAB PO SCH (08:09)
[2020-03-20] MEDS: ALLOPURINOL 100 MG TAB PO SCH (08:09)
[2020-03-20] MEDS: ASPIRIN 81 MG PO SCH (08:10)
[2020-03-20] MEDS: DOCUSATE 100 MG CAP PO SCH ×2 (08:10→20:58)
[2020-03-20] MEDS: HEPARIN SODIUM,PORCINE 5,000 UNIT/ML 1 ML VIAL SQ SCH ×2 (08:10→15:38)
[2020-03-20] MEDS: TORSEMIDE 20 MG TAB PO SCH (08:11)
[2020-03-20] MEDS: FLUTICASONE 110 MCG INHALER INHALATION SCH ×2 (08:33→20:00)
--- NOTE | 2020-03-20 09:26 | CDI ---
Documentation Clarification Form Date: 03/19/2020 03:02:00 PM From: Alina De Souza RN CCDS Admit Date: 03/17/2020 12:32:00 PM Patient Name: Sulaiman Dumont Visit Number: [id number] Discharge Date: ATTENTION: The Clinical Documentation Specialists (CDI) and [facility] Coding Staff appreciate your assistance in clarifying documentation. Please respond to the clarification below the line at the bottom and electronically sign. The CDI & [facility] Coding staff will review the response and follow-up if needed. Please note: Queries are made part of the Legal Health Record. If you have any questions, please contact the author of this message via ITS. Dr. Jyotsna Kovacs Documented in the H&P in past medical history 03/17 CHF per 2017 medical record but pt does not recall. History/Risk Factors: 74-year-old male presents to the ED after a fall the patient has been having multiple falls over the last month. Medical History ESRD, HTN, CAD and Heart Failure Clinical Indicators: 03/17/20 VS/Pulse OX: 140/63 65 98.8 20 96% ra 02/11/20 Echocardiogram Results: There is moderate concentric left ventricular hypertrophy. Overall left ventricular systolic function is normal with, an EF between 55-60%. The right ventricle is mildly enlarged. 03/17/20 Chest X Ray: Much improved infiltrate right lower lobe. New infiltrate noted right upper lobe. Interstitial process seen bilaterally. Treatment: 03/17 Imdur 30mg po daily, Lopressor 100mg po hs, 03/18 Demadex po daily In your professional opinion, can you please clarify the acuity and type of CHF if known? Chronic Diastolic Heart Failure CHF Ruled Out Unable to Determine Other, please specify (Last Revision: December 2017) answered in pn 03/20 and in dcs. communication with the [employer] on 03/19 MTDD
--- NOTE | 2020-03-20 11:34 | P.PN ---
Subjective Patient is seen in follow-up for end-stage renal disease. He is maintained on hemodialysis on Thursday schedule. Denies chest pain or shortness of breath. Hemodynamically stable. No vomiting or diarrhea. Vital signs are stable. General: The patient appeared well nourished and normally developed. HEENT: Head exam is unremarkable. Neck is without jugular venous distension. LUNGS: Lungs are clear to auscultation and percussion. Breath sounds decreased. HEART: Rate and Rhythm are regular. ABDOMEN: Soft, nontender. EXTREMITITES: No edema. Objective - Vital Signs Vital signs: Vital Signs Temp 98.7 F 03/20/20 07:00 Pulse 56 L 03/20/20 07:00 Resp 20 03/20/20 07:00 BP 167/75 03/20/20 07:00 Pulse Ox 95 03/20/20 07:00 Intake & Output 03/19/20 03/20/20 03/20/20 18:59 06:59 18:59 Intake Total 580 560 Output Total 120 Balance -120 580 560 Weight 109 kg Intake: Oral 580 560 Output: Urine 120 Other: Voiding Method Toilet Toilet Urinal Urinal # Voids 1 - Labs CBC & Chem 7: 03/19/20 06:05 03/19/20 06:05 Labs: Microbiology - Last 24 Hours (Table) 03/17/20 12:16 Blood Culture - Preliminary Blood No Growth after 48 hours Assessment and Plan Plan: Assessment: 1. End-stage renal disease maintained on hemodialysis on Thursday schedule via left approximately AV fistula. 2. Status post fall. 3. Hypertension with chronic kidney disease. Stable. Standing blood pressure not low. 4. Chronic kidney disease mineral bone disease maintained on Renvela outpatient. Plan: Currently seen while undergoing hemodialysis. Next treatment on . Avoid hypotension.
--- NOTE | 2020-03-20 13:47 | P.PN ---
Subjective Progress Note Date: 03/20/20 This is a 74-year-old male one my patient with a previous medical history significant for hypertension and hypertensive cardiovascular disease, hyperlipidemia, insulin and Zestril hemodialysis Thursday and Thursday, history of asthma/COPD, history of CAD post-PCI, history of ankylosing s pondylitis, obstructive sleep apnea on a CPAP, patient was supposed to go to dialysis today, he woke up in the morning and he went to have a shower, as he was getting out he lost his balance he ended up falling forward on the floor he could not get up, his came to see him down in the basement and she called EMS who brought the patient to the emergency room for evaluation, patient was supposed to have a computed tomography scan of the brain with and without contrast next week for evaluation of recurrent falls, patient has been having recurrent falls over the last 6 month more than 7-8 falls without any acute injuries, patient apparently seems to be losing his balance sometimes he falls f orward and sometimes backward, he also has been depressed since his dog got diagnosed with a renal failure, and he has been having some short-term memory loss as well. patient denies any syncope at this point he denies any head injury at this point, he has no chest pain or shortness breath he denies any palpitation the same time, he was seen and evaluated in the emergency department at [facility] he had a computed tomography scan of the brain that did not show any evidence of acute abnormalities, patient is being dialyzed in the emergency Department right now and he will be admitted to the hospital for evaluation by neurology physical therapy and occupational therapy, likely the pa agatha will require subacute rehabilitation for muscle strengthening exercises. 03/18: Patient is laying down in bed he continues to be a bit confused however he is oriented to time and person, he has no headache, no blurred vision, he denies any chest pain, or shortness breath, he has no abdominal pain, he underwent dialysis yesterday, he appears a dry weight, he denies any poor appetite, he did have his breakfast today, he would be seen by physical therapy tomorrow morning he has not seen neurology yet. 03/19: Patient states that he has had cough is nonproductive. He denies any chest pain or shortness of breath. Patient states he had a loose bowel movement, appetite is good. PT and OT to start working with the patient as he may require subacute rehab. Patient is followed by nephrology on hemodialysis Thursday schedule. He underwent dialysis on Thursday with a width 2.7 L removed. He is scheduled for his next hemodialysis on Thursday. Orthostatic vital signs to be checked. Patient's been afebrile, heart rate 69, blood pressure 171/76 and pulse ox 97% on room air. Hemoglobin 10.7. BUN 55 creatinine 6.9, sodium 136, potassium 4.0. Obtain neurology consult today, PT and OT and probable discharge to [facility] on Thursday. 03/20: Patient has been seen by neurology was concern for stenosis of the lumbar spine causing his symptoms as well as possible Normal pressure hydrocephalus as a lateral and third ventricles were slightly dilated according to neurology. He is scheduled for MRI of the lumbar spine at 5 PM. Patient denies any new complaints. We'll plan to monitor overnight and discharged to rehab tomorrow. He has been afebrile, heart rate 56, blood pressure 167/75, pulse ox 95% on room air. Objective - Vital Signs Vital signs: Vital Signs Temp 98.3 F 03/20/20 12:17 Pulse 59 L 03/20/20 12:17 Resp 16 03/20/20 12:17 BP 135/68 03/20/20 12:17 Pulse Ox 95 03/20/20 07:00 Intake & Output 03/19/20 03/20/20 03/20/20 18:59 06:59 18:59 Intake Total 580 560 Output Total 120 1999 Balance -120 580 -1440 Weight 109 kg Intake: Oral 580 560 Output: Urine 120 Hemodialysis 1999 Other: Voiding Method Toilet Toilet Urinal Urinal # Voids 1 # Bowel Movements 1 - Exam Review of Systems Constitutional: Reports fatigue, Reports weakness, Denies anorexia, Denies chronic headaches, Denies chronic pain, Denies weight gain, Denies weight loss Eyes: denies blurred vision, denies bulging eye, denies decreased vision Ears: bilateral: decreased hearing Ears, nose, mouth and throat: Denies dysphagia, Denies neck lump, Denies sore throat Cardiovascular: Reports decreased exercise tolerance, Reports dyspnea on exertion, denies shortness of breath, Denies chest pain, Denies leg edema, Denies lightheadedness, Denies rapid heart beat, Denies syncope Respiratory: Reports sleep apnea, Denies congestion, reports cough denies sputum, Denies home oxygen, Denies snoring, Denies wheezing Gastrointestinal: Denies abdominal pain, Denies BRBPR, Denies change in bowel habits, Denies heartburn, Denies hematemesis, Denies hematochezia, Denies nausea, Denies vomiting Genitourinary: Reports nocturia, Denies dysuria Musculoskeletal: Reports frequent falls, Reports limitation of motion, Reports morning stiffness, Denies shooting arm pain, Denies shooting leg pain Musculoskeletal: absent: ankle pain, ankle stiffness, ankle swelling, elbow pain, elbow stiffness, elbow swelling, foot pain, foot stiffness, foot swelling, hand pain, hand stiffness, hand swelling, hip pain, hip stiffness, hip swelling, knee pain, knee stiffness, knee swelling, shoulder pain, shoulder stiffness, shoulder swelling, wrist pain, wrist stiffness, wrist swelling Integumentary: Denies pruritus, Denies rash Neurological: Reports balance difficulties, Reports gait dysfunction, Reports memory loss, Reports weakness, Denies head injury, Denies headaches, Denies motor disturbance, Denies numbness, Denies paralysis, Denies syncope, Denies tingling, Denies transient paralysis, Denies tremors, Denies vertigo Psychiatric: Reports depression, Denies anxiety, Denies paranoia, Denies sadness/tearfulness, Denies sleep disturbances, Denies suicidal ideation Endocrine: Denies fatigue, Denies weight change Physical examination: GEN: This is a 74-year-old obese male. He is resting bed and appears to be comfortable and in no acute distress. HEENT: Head is atraumatic, normocephalic, pupils were equal round reactive to light and a completion, extraocular muscle movement intact, mucous membranes of the mouth are moist. Neck: Supple, no JVP, no carotid bruit. Chest: Decreased breath sound at the bases, few rhonchi, no expiratory wheezes, no chest wall tenderness, no intercostal retractions. No accessory muscle usage. Heart: First heart sound is depressed, second heart sound is normal, there is systolic ejection murmur 2/6 located in the left sternal border. Abdomen: Soft nontender nondistended, positive bowel sounds. Extremities: There is no edema, no calf tenderness, dorsalis pedis +2 bilaterally. Neurologic examination: Patient is awake alert and oriented 3, cranial nerves III-12 appear grossly intact, muscle power 4-5 in upper and lower extremities bilaterally, Deep tendon reflexes were normal, Babinski's were flexor bilaterally. - Labs CBC & Chem 7: 03/19/20 06:05 03/19/20 06:05 Labs: Microbiology - Last 24 Hours (Table) 03/17/20 12:16 Blood Culture - Preliminary Blood No Growth after 48 hours Assessment and Plan Plan: 1. Recurrent falls with gait dysfunction and memory loss possibly related to lumbar spinal stenosis or normal pressure hydrocephalus. Consult with neurology appreciated. Patient is scheduled for MRI of the lumbar spine this evening at 5. 2. Recent right lower lobe pneumonia. Appeared much better on the chest x-ray, there is a questionable right upper lobe infiltrate with possible interstitial infiltrate as well patient has had a chronic asthma for many years and he does not appear to have an acute pneumonia at this point in time. 3. CAD post-PCI. maintain the patient on Lipitor 10 mg orally once every day, aspirin 81 mg once every day, metoprolol 100 mg orally once every day, isosorbide mononitrate 30 mg orally once every day. 4. Hypertension and hypertensive cardiovascular disease. Continue patient on metoprolol 100 mg orally once every day, felodipine 10 mg orally once every day. 5. Hyperlipidemia. Continue Lipitor 10 mg orally once every day. 6. Gout, chronic. Continue patient on Uloric 80 mg once every day. 7. Asthma moderate intermittent/COPD. Continue patient on DuoNeb 3 mg nebulization 4 times every day, Pulmicort 0.5 mg nebulization twice every day, continue montelukast 10 mg orally once every day, patient used to get Xolair injections once every month. 8. Obesity with obstructive sleep apnea. Continue patient on CPAP. 9. GERD with Prabhakar's esophagus. Continue lansoprazole 30 mg orally once e very day. 10. vitamin D deficiency. Continue vitamin D to 50,000 units once every week. 11. Recurrent Depression. Patient was taken off Zoloft and he was started on Lexapro 5 mg orally once every day about a few weeks ago. 12. Ankylosing spondylitis. Continue patient on Ultracet as needed. 13. End-stage renal disease on hemodialysis. Continue with dialysis order. 14. DVT prophylaxis. Continue heparin 5000 units subcutaneously every 8 hours. 15. GI prophylaxis. Continue with PPI. 16. COVID-19 infection not present. 17. Chronic diastolic heart failure, stable without exacerbation. Discharge plan: on Thursday Impression and plan of care have been directed as dictated by the signing physician. Missy Manzano nurse practitioner acting as scribe for signing physician.
--- NOTE | 2020-03-20 18:36 | P.PN ---
Subjective Progress Note Date: 03/20/19 Principal diagnosis: falls Patient is at bedside and having his dinner. He states he feels somewhat better on his feet today compared to yesterday. Denies weakness, numbness, and new neurological problems. Today he was take down for MRI Lumbar spine but could not be done since patient could not tolerate lying down. He had dialysis today. Spoke with patient's and she stated that patient has been having falls for the past 5 month and had about 8 falls. He does have short and care home memory loss for past 10 years. Objective - Vital Signs Vital signs: Vital Signs Temp 97.9 F 03/20/20 15:00 Pulse 57 L 03/20/20 15:00 Resp 20 03/20/20 15:00 BP 134/77 03/20/20 15:00 Pulse Ox 96 03/20/20 15:00 Intake & Output 03/19/20 03/20/20 03/20/20 18:59 06:59 18:59 Intake Total 580 760 Output Total 120 2000 Balance -120 580 -1240 Weight 109 kg Intake: Oral 580 760 Output: Urine 120 Hemodialysis 2000 Other: Voiding Method Toilet Toilet Urinal Urinal # Voids 1 # Bowel Movements 1 - Exam GENERAL: The patient is lying in bed and is not in acute distress. CHEST: The heart rate is regular rate rhythm. LUNG: Not labored breathing. ABDOMEN/GI: No tenderness to palpation throughout. NEUROLOGICAL: Higher mental function: The patient is awake, alert, oriented to self, place and time. Patient is following commands. No aphasia and no neglect. Cranial nerves: The pupils are round, equal and reactive to light and accommodation. Visual sanchez are full to confrontation throughout. Extraocular movement is intact no nystagmus is noted. Facial sensation is normal to touch throughout. The facial strength is normal throughout. Hearing is normal bilaterally to hand rub. Tongue is midline and moved [id number] without any difficulty. No dysarthria is noted. Shoulder shrug is normal bilaterally. Motor: Gait is slow and cautious steps. The strength is 5 over 5 throughout. Normal tone and bulk. Cerebellum: Normal finger to nose bilaterally. Sensation: Sensation is normal to touch throughout. Reflexes (right/left): Biceps 2+/2+; triceps2+/2+; brachioradialis 2+/2+; patellar 3+/3+; ankles0-1 /0-1. Plantars is downgoing on the right but upgoin on left. - Labs CBC & Chem 7: 03/19/20 06:05 03/19/20 06:05 Labs: Microbiology - Last 24 Hours (Table) 03/17/20 12:16 Blood Culture - Preliminary Blood No Growth after 72 hours Assessment and Plan Assessment: This is a 74-year-old gentleman with with multiple medical history, hypertension, hyperlipidemia, diabetes, end-stage renal disease on dialysis, cor onary artery disease status post stenting as well as ankylosing spondylitis with has been having falls for the last 5 month, he's been averaging about 1 fall per week. According to the patient he usually falls backwards. He had a recent fall and that's what brought him to the hospital. He denies of any weakness any numbness. He denies any bowel problems. Per he has short and care home me erika loss for past 10 years. On examination the patient had brisk patellar reflex and upgoing left toe rated at a CT of the head was read as age-related atrophic and chronic small vessel ischemic changes without acute intracranial process seen at this time. I reviewed the CT of the head I felt there is mild dilation of the lateral and third ventricles. Differential for the diagnoses is stenosis of the lumbar spine since the patient had brisk reflexes of the patella and upgoing left toe that could be the cause of his falls another consideration possibly that might be considered later on is normal pressure hydrocephalus since I felt the lateral and the third ventricle was slightly dilated as well as memory loss. He is on dialysis. Plan: Could not tolerate MRI of Lumbar spine. We will get CT of his entire back. Consider work-up of possible normal pressure hydrocephalus as outpatient. Patient needs to follow-up with outpatient neurologist for further work-up if imaging are non-conclusive. The vitamin B12 was normal there was 645. The folate was normal was somewhat and 24. TSH was normal was 1.34. Ordered HbA1c. PT/OT are consulted. Patient was counseled on using the walker at all time to avoid falls. Spoke with patient's and updated her on patient condition. We will continue to follow Alexander Beck M.D. Neurohopsitalist Time with Patient: Greater than 30
--- NOTE | 2020-03-20 19:42 | CT ---
EXAMINATION TYPE: CT CervThorLumbar spine wo con DATE OF EXAM: 03/20/2020 COMPARISON: None HISTORY: Fall injury,bruising to thoracolumbar area CT DLP: 3364 mGycm Automated exposure control for dose reduction was used. TECHNIQUE: Cervical thoracic and lumbar spine are examined in the axial plane with reconstructed imag es in the coronal and sagittal planes. FINDINGS: Cervical spine: No acute fractures are evident. No spinal canal stenosis is present. Mild uncovertebr al joint hypertrophy is present contributing to mild foraminal narrowing. There is narrowing of disc height through the cervical spine greatest at C6-7. Vertebral body heights are preserved. Thoracic spine: Spondylosis is present. Disc heights are preserved. Vertebral body heights are preser priyanka. There is fusion of the ribs at the costovertebral junctions. There is exaggeration of the thorac ic kyphosis. Lumbar spine: Some facet degenerative changes present. No spinal canal stenosis is present. Vertebral body heights are preserved. Disc heights appear preserved. Anterior vertebral body fusion appears to be present. IMPRESSION: NO ACUTE POSTTRAUMATIC CHANGES EVIDENT. 2. DIFFUSE DEGENERATIVE CHANGES WITH EXAGGERATION OF THE THORACIC KYPHOSIS. 3. MULTILEVEL FUSION, CONSIDER ANKYLOSING SPONDYLITIS WITHIN THE DIFFERENTIAL.
[2020-03-20] MEDS: FOLIC ACID-VIT B COMPLEX-VIT C 1 CAP PO SCH (20:58)
[2020-03-20] MEDS: SEVELAMER 800 MG TAB PO SCH (20:58)
[2020-03-20] MEDS: METOPROLOL TARTRATE 50 MG TAB PO SCH (20:58)
[2020-03-20] MEDS: MONTELUKAST 10 MG TAB PO SCH (20:58)
[2020-03-20] MEDS: LORATADINE 10 MG TAB PO SCH (20:58)
[2020-03-20] MEDS: ESCITALOPRAM 5 MG TAB PO SCH (20:58)
[2020-03-21] MEDS: HEPARIN SODIUM,PORCINE 5,000 UNIT/ML 1 ML VIAL SQ SCH ×2 (00:05→08:07)
[2020-03-21 02:24] VITALS: PULSE 61
[2020-03-21] MEDS: MAGNESIUM OXIDE 400 MG TAB PO SCH (08:07)
[2020-03-21] MEDS: PANTOPRAZOLE 40 MG TABLET PO SCH (08:07)
[2020-03-21] MEDS: ASPIRIN 81 MG PO SCH (08:07)
[2020-03-21] MEDS: FINASTERIDE 5 MG TAB PO SCH (08:08)
[2020-03-21] MEDS: DOCUSATE 100 MG CAP PO SCH (08:08)
[2020-03-21] MEDS: ALLOPURINOL 100 MG TAB PO SCH (08:08)
[2020-03-21] MEDS: ISOSORBIDE MONONITRATE ER 30 MG TAB.ER.24H PO SCH (08:08)
[2020-03-21] MEDS: TORSEMIDE 20 MG TAB PO SCH (08:09)
[2020-03-21] MEDS: amLODIPine 10 MG TAB PO SCH (08:10)
[2020-03-21] MEDS: FLUTICASONE 110 MCG INHALER INHALATION SCH (08:11)
[2020-03-21] MEDS ORDERED: ERGOCALCIFEROL 50,000 UNIT CAP PO SCH (09:00)
--- NOTE | 2020-03-21 10:40 | P.PN ---
Subjective Patient is seen in follow-up for end-stage renal disease. He is maintained on hemodialysis on Thursday schedule. Denies chest pain or shortness of breath. Hemodynamically stable. No vomiting or diarrhea. He's been working with physical therapy. Denies any further falls. Vital signs are stable. General: The patient appeared well nourished and normally developed. HEENT: Head exam is unremarkable. Neck is without jugular venous distension. LUNGS: Lungs are clear to auscultation and percussion. Breath sounds decreased. HEART: Rate and Rhythm are regular. ABDOMEN: Soft, nontender. EXTREMITITES: No edema. Objective - Vital Signs Vital signs: Vital Signs Temp 98.3 F 03/21/20 01:03 Pulse 61 03/21/20 01:03 Resp 18 03/21/20 01:03 BP 163/69 03/21/20 01:03 Pulse Ox 93 L 03/21/20 01:03 Intake & Output 03/20/20 03/21/20 03/21/20 18:59 06:59 18:59 Intake Total 960 Output Total 1999 Balance -1040 Weight 108.5 kg Intake: Oral 960 Output: Hemodialysis 1999 Other: Voiding Method Toilet Toilet Toilet Urinal Urinal Urinal # Bowel Movements 1 - Labs CBC & Chem 7: 03/19/20 06:05 03/19/20 06:05 Labs: Microbiology - Last 24 Hours (Table) 03/17/20 12:16 Blood Culture - Preliminary Blood No Growth after 72 hours Assessment and Plan Plan: Assessment: 1. End-stage renal disease maintained on hemodialysis on Thursday schedule via left upper extremity AV fistula. 2. Status post fall. 3. Hypertension with chronic kidney disease. Stable. Standing blood pressure not low. 4. Chronic kidney disease mineral bone disease maintained on [facility] outpatient. Plan: Hemodialysis tomorrow. Avoid hypotension. Anticipated discharge to rehab soon.
[2020-03-21 10:44] VITALS: BP 155/80; RESP 16; TEMP 98.4
[2020-03-21] MEDS ORDERED: ACETAMINOPHEN TAB 325 MG TAB PO PRN (12:34)
[2020-03-21 12:36] LABS: Hemoglobin A1C 5.3 % (4.0-6.0)
--- NOTE | 2020-03-21 20:01 | P.PN ---
Subjective Progress Note Date: 03/21/20 Principal diagnosis: Falls Patient was sen today and feels he doing somewhat better compared to yesterday. Denies of new weakness, numbness, vision change. He is working with physical therapy. Objective - Vital Signs Vital signs: Vital Signs Temp 98.4 F 03/21/20 07:00 Pulse 61 03/21/20 07:00 Resp 16 03/21/20 07:00 BP 155/80 03/21/20 07:00 Pulse Ox 94 L 03/21/20 07:00 Intake & Output 03/21/20 03/21/20 03/22/20 06:59 18:59 06:59 Weight 108.5 kg Other: Voiding Method Toilet Toilet Urinal Urinal - Exam GENERAL: The patient is lying in bed and is not in acute distress. CHEST: The heart rate is regular rate rhythm. LUNG: Not labored breathing. ABDOMEN/GI: No tenderness to palpation throughout. NEUROLOGICAL: Higher mental function: The patient is awake, alert, oriented to self, place and time. Patient is following commands. No aphasia and no neglect. Cranial nerves: The pupils are round, equal and reactive to light and accommodation. Visual sanchez are full to confrontation throughout. Extraocular movement is intact no nystagmus is noted. Facial sensation is normal to touch throughout. The facial strength is normal throughout. Hearing is normal bilaterally to hand rub. Tongue is midline and moved [id number] without any difficulty. No dysarthria is noted. Shoulder shrug is normal bilaterally. Motor: Gait is slow and cautious steps. The strength is 5 over 5 throughout. Normal tone and bulk. Cerebellum: Normal finger to nose bilaterally. Sensation: Sensation is normal to touch throughout. Reflexes (right/left): Biceps 2+/2+; triceps2+/2+; brachioradialis 2+/2+; patellar 3+/3+; ankles0-1 /0-1. Plantars is downgoing on the right but upgoin on left. - Labs CBC & Chem 7: 03/19/20 06:05 03/19/20 06:05 Labs: Microbiology - Last 24 Hours (Table) 03/17/20 12:16 Blood Culture - Preliminary Blood No Growth after 96 hours Assessment and Plan Assessment: This is a 74-year-old gentleman with with multiple medical history, hypertension, hyperlipidemia, diabetes, end-stage renal disease on dialysis, coronary artery disease status post stenting as well as ankylosing spondylitis for past 20 years with has been having falls for the last 5 month, he's been averaging about 1 fall per week. According to the patient he usually falls backwards. He had a recent fall and that's what brought him to the hospital. He denies of any weakness any numbness. He denies any bowel problems. Per he has short and long-term memory loss for past 10 years. On examination the patient had brisk patellar reflex and upgoing left toe rated at a CT of the head was read as age-related atrophic and chronic small vessel ischemic changes without acute intracranial process seen at this time. I reviewed the CT of the head I felt there is mild dilation of the lateral and third ventricles. Falls Anykylosing spondylitis Differential for the diagnoses is stenosis of the lumbar spine since the patient had brisk reflexes of the patella and upgoing left toe that could be the cause of his falls another consideration possibly that might be considered later on is normal pressure hydrocephalus since I felt the lateral and the third ventricle was slightly dilated as well as memory loss (low on differential). Plan: Could not tolerate MRI of Lumbar spine. CT C/T/L spine: No acute post-traumatic changes evident. Diffuse degenerative changes with exageration of the thoracic kyphosis. Multilevel fusion, consider ankylosing spondylitis within differential. I believe the patient falls are likely due to his ankylosing spondylitis that he had for past 20 years and has been falling because of his posture of his walk with head tilted all way down. I believe patient will benefit from inpatient rehab. Consider work-up of possible normal pressure hydrocephalus as outpatient (which is low on differential). The vitamin B12 was normal there was 645. The folate was normal was somewhat and 24. TSH was normal was 1.34. Ordered HbA1c. PT/OT are consulted. Patient was counseled on using the walker at all time to avoid falls. The plan was discussed with the patient. No further work-up needed Alexander Beck M.D. Neurohopsitalist Time with Patient: Less than 30
== END 2020-03-21 13:50 | DRG 545 ==
LOC: EC 10:22 → SUPCPDRO 10:22 → 4SSUR 12:32
PROVIDERS: ADMIT Internal Medicine; ATTEND Internal Medicine
PROC: 5A1D70Z Performance of Urinary Filtration, Intermittent, Less than 6 Hours Per Day (ICD-10-PCS; principal; 2020-03-17)
DX: M45.4 Ankylosing spondylitis of thoracic region (principal); N18.6 End stage renal disease; I13.2 Hypertensive heart and chronic kidney disease with heart failure and with stage 5 chronic kidney disease, or end stage renal disease; F33.9 Major depressive disorder, recurrent, unspecified; I50.32 Chronic diastolic (congestive) heart failure; G91.2 (Idiopathic) normal pressure hydrocephalus; Z11.59 Encounter for screening for other viral diseases; E83.9 Disorder of mineral metabolism, unspecified; D63.1 Anemia in chronic kidney disease; E11.22 Type 2 diabetes mellitus with diabetic chronic kidney disease; G31.9 Degenerative disease of nervous system, unspecified; Z99.2 Dependence on renal dialysis; J44.9 Chronic obstructive pulmonary disease, unspecified; R29.6 Repeated falls; R41.3 Other amnesia; R26.81 Unsteadiness on feet; E55.9 Vitamin D deficiency, unspecified; K22.70 Barrett's esophagus without dysplasia; K21.9 Gastro-esophageal reflux disease without esophagitis; G47.33 Obstructive sleep apnea (adult) (pediatric); E66.9 Obesity, unspecified; J45.20 Mild intermittent asthma, uncomplicated; M1A.9XX0 Chronic gout, unspecified, without tophus (tophi); E78.5 Hyperlipidemia, unspecified; I25.10 Atherosclerotic heart disease of native coronary artery without angina pectoris; M40.204 Unspecified kyphosis, thoracic region; R53.1 Weakness; H91.90 Unspecified hearing loss, unspecified ear; N40.0 Benign prostatic hyperplasia without lower urinary tract symptoms; G89.29 Other chronic pain; M54.5 Low back pain; I44.7 Left bundle-branch block, unspecified; Z95.828 Presence of other vascular implants and grafts; Z68.35 Body mass index [BMI] 35.0-35.9, adult; Z79.899 Other long term (current) drug therapy; Z87.19 Personal history of other diseases of the digestive system; Z79.82 Long term (current) use of aspirin; Z87.01 Personal history of pneumonia (recurrent); Z91.81 History of falling; Z85.828 Personal history of other malignant neoplasm of skin; Z90.49 Acquired absence of other specified parts of digestive tract; Z95.5 Presence of coronary angioplasty implant and graft; Z98.890 Other specified postprocedural states; Z98.42 Cataract extraction status, left eye; Z98.41 Cataract extraction status, right eye; Z96.1 Presence of intraocular lens; Z98.1 Arthrodesis status; Z88.8 Allergy status to other drugs, medicaments and biological substances; Z80.3 Family history of malignant neoplasm of breast; Z82.49 Family history of ischemic heart disease and other diseases of the circulatory system; Z83.3 Family history of diabetes mellitus
CPT/HCPCS: 36415; 70450; 71046; 72125; 72128; 72131; 80048; 80053; 82607; 82746; 83036; 83605; 83735; 84443; 85025; 87040; 87635; 90935; 93005; 94640; 96365; 96375; 99285

== ENCOUNTER 2021-06-13 03:55 | Inpatient (IN) | payer MEDICARE, BC, OTHER ==
[2021-06-13] MEDS ORDERED: SODIUM CHLORIDE 0.9% 1,000 ML IV STA (04:06)
--- NOTE | 2021-06-13 05:03 | CT ---
EXAMINATION TYPE: CT brain wo con DATE OF EXAM: 06/13/2021 COMPARISON: 03/17/2020 HISTORY: weakness/ams. prior on PACS CT DLP: 2486.4 mGycm Automated exposure control for dose reduction was used. There is cerebral cortical atrophy. There is no mass effect nor midline shift. There is no sign of in tracranial hemorrhage. The calvarium is intact skull base is intact. IMPRESSION: No acute intracranial abnormality. Cerebral atrophy. No change.
--- NOTE | 2021-06-13 05:05 | ED ---
Altered Mental Status HPI - General Chief Complaint: Altered Mental Status Stated Complaint: Altered Mental Time Seen by Provider: 06/13/21 04:06 Source: patient, EMS, RN notes reviewed, old records reviewed Mode of arrival: EMS Limitations: altered mental status - History of Present Illness Initial Comments: This is a 75-year-old male presents to the emergency department for evaluation of altered mental status patient is having Expressive aphasia likely as well as abdomen aphasia with inability to follow commands presented by EMS with last known well time around 8:00 last night prior to going to bed. had heard the patient fall or have something happen to him this morning around 2-3am patient presents to our ER around 4am MD Complaint: altered mental status, confusion, decreased responsiveness, weakness -: unknown Severity: moderate Consistency of Symptoms: getting worse Context: history of similar presentation Associated Symptoms: malaise, weakness - Related Data Home Medications Medication Instructions Recorded Confirmed Atorvastatin Calcium [Lipitor] 10 mg PO MOWEFR 11/11/14 06/13/21 Dutasteride [Avodart] 0.5 mg PO DAILY 11/11/14 06/13/21 Felodipine [Felodipine ER] 10 mg PO SUMOWEFR 11/11/14 06/13/21 Montelukast [Singulair] 10 mg PO HS 11/11/14 06/13/21 Beclomethasone Dipropionate [Qvar 2 puff INHALATION RT-BID 11/21/15 06/13/21 80 mcg/puff] Ergocalciferol [Vitamin D2 50,000 unit PO WE 11/21/15 06/13/21 (DRISDOL)] Isosorbide Mononitrate ER [Imdur] 30 mg PO HS 11/21/15 06/13/21 Torsemide [Demadex] 20 mg PO DAILY 11/21/15 06/13/21 Febuxostat [Uloric] 80 mg PO DAILY 10/22/16 06/13/21 Lansoprazole 30 mg PO DAILY 10/22/16 06/13/21 Metoclopramide [Reglan] 5 mg PO TID PRN 08/27/17 06/13/21 Metoprolol Tartrate [Lopressor] 100 mg PO HS 11/03/19 06/13/21 Sevelamer [Renvela] 800 mg PO BID 11/03/19 06/13/21 Albuterol Inhaler [Ventolin Hfa 2 puff INHALATION RT-QID 02/11/20 06/13/21 Inhaler] Omalizumab [Xolair] 150 mg SQ Q28D 02/13/20 06/13/21 Aspirin [Adult Low Dose Aspirin EC] 81 mg PO DAILY 03/17/20 06/13/21 Docusate Sodium [Dok] 100 mg PO BID 03/17/20 06/13/21 Loratadine 10 mg PO HS 03/17/20 06/13/21 Lidocaine-Prilocaine Cream [Emla 1 applic TOPICAL DIRECTED 06/13/21 06/13/21 Cream 2.5%/2.5%] Nitroglycerin Sl Tabs [Nitrostat] 0.4 mg SUBLINGUAL Q5M PRN 06/13/21 06/13/21 Renavite 1 tab PO HS 06/13/21 06/13/21 traMADol HCL/ACETAMINOPHEN 1 tab PO BID 06/13/21 06/13/21 [Ultracet 37.5-325] Allergies Allergy/AdvReac Type Severity Reaction Status Date / Time diphenhydramine HCl Allergy Confusion Verified 06/13/21 07:37 [From Benadryl] Review of Systems ROS Statement: Those systems with pertinent positive or pertinent negative responses have been documented in the HPI. ROS Other: All systems not noted in ROS Statement are negative. Past Medical History Past Medical History: Asthma, Coronary Artery Disease (CAD), Cancer, Heart Failure, COPD, GERD/Reflux, Hearing Disorder / Deafness, Hyperlipidemia, Hypertension, Osteoarthritis (OA), Prostate Disorder, Renal Disease, Sleep Apnea/CPAP/BIPAP Additional Past Medical History / Comment(s): ESRD with hemodialysis on //Thu, anemia, BPH, bronchitis, chronic low back pain, ankylosing spondylosis, gout in ankles in past, concepcion's esophagus, colon polyp, hemorrhoids, behind L ear basal cell skin cancer with removal, L hand squamous cell skin cancer removal, JF with Bipap, bilateral tinnitis, CHF per 2017 medical record but pt does not recall. History of Any Multi-Drug Resistant Organisms: None Reported Past Surgical History: Appendectomy, Cholecystectomy, Heart Catheterization, H eart Catheterization With Stent, Hernia Repair Additional Past Surgical History / Comment(s): Fistula L arm, EGDs, colonoscopies, abdominal hernia repair, ivette fundoplication, ruptured gallbladder with christelle/appy and piece of bowel removed, hemorrhoidectomy, behind L ear lesion removed and another from L hand, bilateral cataract removals/lens implants. Past Anesthesia/Blood Transfusion Reactions: No Reported Reaction Additional Past Anesthesia/Blood Transfusion Reaction / Comment(s): . Date of Last Stent Placement:: 2003 Past Psychological History: No Psychological Hx Reported Smoking Status: Never smoker Past Alcohol Use History: None Reported Past Drug Use History: None Reported - Past Family History Mother Family Medical History: Cancer Additional Family Medical History / Comment(s): Mother at age 72 from BREAST CANCER Father Family Medical History: Myocardial Infarction ([place]) Additional Family Medical History / Comment(s): Father of a [place] at the age of 48 yrs. Sister(s) Family Medical History: Diabetes Mellitus Additional Family Medical History / Comment(s): Patient has one sister. Patient's son have any brothers. Patient has 2 children with no major medical problems. General Exam - General Exam Comments Initial Comments: NIH of 9 expressive aphasia receptive aphasia Limitations: altered mental status General appearance: alert, anxious, in distress Head exam: Present: atraumatic, normocephalic, normal inspection Eye exam: Present: normal appearance, PERRL, EOMI. Absent: scleral icterus, conjunctival injection, periorbital swelling ENT exam: Present: normal exam, mucous membranes moist Neck exam: Present: normal inspection. Absent: tenderness, meningismus, lymphadenopathy Respiratory exam: Present: normal lung sounds bilaterally. Absent: respiratory distress, wheezes, rales, rhonchi, stridor Cardiovascular Exam: Present: bradycardia, tachycardia, normal heart sounds. Absent: systolic murmur, diastolic murmur, rubs, gallop, clicks GI/Abdominal exam: Present: soft, normal bowel sounds. Absent: distended, tenderness, guarding, rebound, rigid Extremities exam: Present: normal inspection, full ROM, normal capillary refill. Absent: tenderness, pedal edema, joint swelling, calf tenderness Back exam: Present: normal inspection Neurological exam: Present: alert, oriented X3, CN II-XII intact Psychiatric exam: Present: normal affect, normal mood Skin exam: Present: warm, dry, intact, normal color. Absent: rash Course Vital Signs 06/13/21 06/13/21 06/13/21 04:05 05:08 05:15 Temperature 98.2 F Pulse Rate 146 H 66 68 Respiratory 18 18 18 Rate Blood Pressure 99/55 120/58 120/68 O2 Sat by Pulse 95 95 95 Oximetry 06/13/21 06/13/21 06/13/21 05:30 06:00 06:45 Temperature Pulse Rate 62 58 L 58 L Respiratory 18 18 18 Rate Blood Pressure 108/56 125/54 92/33 O2 Sat by Pulse 95 94 L 98 Oximetry 06/13/21 06/13/21 06/13/21 08:33 09:08 13:43 Temperature Pulse Rate 78 77 75 Respiratory 20 20 20 Rate Blood Pressure 110/40 121/77 168/77 O2 Sat by Pulse 96 97 98 Oximetry 06/13/21 06/13/21 15:30 18:33 Temperature Pulse Rate 74 96 Respiratory 18 22 Rate Blood Pressure 183/76 126/63 O2 Sat by Pulse 96 95 Oximetry - Reevaluation(s) Reevaluation #1: 06/13/21 06:33 Medical record is reviewed 06/13/21 06:40 Spoke with regarding TPA contraindications, she is understanding Reevaluation #2: 06/13/21 06:33 Initial patient presentation further induration is made the patient's last known well was before bed last night greater than 6 hours prior to arrival Reevaluation #3: 06/13/21 06:34 Spoke with at bedside he does state patient was well about 8 PM last night and then she did hear him fall sometime in the middle of the night that is when she found him with an inability to speak or express himself Reevaluation #4: 06/13/21 06:34 Patient has no improvement here in the emergency department 06/13/21 06:34 We did not obtain a CT angiogram initially secondary to patient being dialysis patient after negative CT brain w trauma we will obtain CT angio prior to dialysis today - Consultations Consultation #1: spoke w DR Fermín sharif patient and ok for admission Medical Decision Making - Medical Decision Making 75 male to the emergency department, patient has expressive aphasia and signs of acute CVA. Patient is not a TPA candidate secondary to unknown onset. Patient has CTA of the head and neck which will be pending which is unable to. She secondary to patient cannot sit still and is unable to follow directions and will admit for neurology checks and neuro consultation. Patient does have dialysis scheduled today which we will proceed with. Patient is having acute CVA with expressive aphasia - Lab Data Result diagrams: 06/13/21 04:58 06/13/21 04:58 Lab Results 06/13/21 06/13/21 06/13/21 Range/Units 04:58 04:58 04:58 WBC 13.6 H (3.8-10.6) k/uL RBC 3.47 L (4.30-5.90) m/uL Hgb 11.4 L (13.0-17.5) gm/dL Hct 34.0 L (39.0-53.0) % MCV 97.9 (80.0-100.0) fL MCH 32.9 (25.0-35.0) pg MCHC 33.6 (31.0-37.0) g/dL RDW 12.9 (11.5-15.5) % Plt Count 244 (150-450) k/uL MPV 7.2 Neutrophils % 81 % Lymphocytes % 10 % Monocytes % 7 % Eosinophils % 2 % Basophils % 1 % Neutrophils # 11.0 H (1.3-7.7) k/uL Lymphocytes # 1.3 (1.0-4.8) k/uL Monocytes # 0.9 (0-1.0) k/uL Eosinophils # 0.2 (0-0.7) k/uL Basophils # 0.1 (0-0.2) k/uL PT 10.9 (9.0-12.0) sec INR 1.0 (<1.2) APTT 24.0 (22.0-30.0) sec Sodium (137-145) mmol/L Potassium (3.5-5.1) mmol/L Chloride (98-107) mmol/L Carbon Dioxide (22-30) mmol/L Anion Gap mmol/L BUN (9-20) mg/dL Creatinine (0.66-1.25) mg/dL Est GFR (CKD-EPI)AfAm (>60 ml/min/1.73 sqM) Est GFR (CKD-EPI)NonAf (>60 ml/min/1.73 sqM) Glucose (74-99) mg/dL Lactic Ac Sepsis Rflx Plasma Lactic Acid Rock (0.7-2.0) mmol/L Calcium (8.4-10.2) mg/dL Phosphorus (2.5-4.5) mg/dL Magnesium (1.6-2.3) mg/dL Total Bilirubin (0.2-1.3) mg/dL AST (17-59) U/L ALT (4-49) U/L Alkaline Phosphatase (38-126) U/L Troponin I (0.000-0.034) ng/mL NT-Pro-B Natriuret Pep pg/mL Total Protein (6.3-8.2) g/dL Albumin (3.5-5.0) g/dL TSH (0.465-4.680) mIU/L Urine Color Yellow Urine Appearance Clear (Clear) Urine pH 7.0 (5.0-8.0) Ur Specific [place] 1.016 (1.001-1.035) Urine Protein 2+ H (Negative) Urine Glucose (UA) Negative (Negative) Urine Ketones Negative (Negative) Urine Blood Negative (Negative) Urine Nitrite Negative (Negative) Urine Bilirubin Negative (Negative) Urine Urobilinogen <2.0 (<2.0) mg/dL Ur Leukocyte Esterase Negative (Negative) Urine RBC 2 (0-5) /hpf Urine WBC 4 (0-5) /hpf Urine Mucus Rare H (None) /hpf 06/13/21 06/13/21 06/13/21 Range/Units 04:58 04:58 04:58 WBC (3.8-10.6) k/uL RBC (4.30-5.90) m/uL Hgb (13.0-17.5) gm/dL Hct (39.0-53.0) % MCV (80.0-100.0) fL MCH (25.0-35.0) pg MCHC (31.0-37.0) g/dL RDW (11.5-15.5) % Plt Count (150-450) k/uL MPV Neutrophils % % Lymphocytes % % Monocytes % % Eosinophils % % Basophils % % Neutrophils # (1.3-7.7) k/uL Lymphocytes # (1.0-4.8) k/uL Monocytes # (0-1.0) k/uL Eosinophils # (0-0.7) k/uL Basophils # (0-0.2) k/uL PT (9.0-12.0) sec INR (<1.2) APTT (22.0-30.0) sec Sodium 133 L (137-145) mmol/L Potassium 4.6 (3.5-5.1) mmol/L Chloride 94 L (98-107) mmol/L Carbon Dioxide 24 (22-30) mmol/L Anion Gap 15 mmol/L BUN 65 H (9-20) mg/dL Creatinine 8.54 H* (0.66-1.25) mg/dL Est GFR (CKD-EPI)AfAm 6 (>60 ml/min/1.73 sqM) Est GFR (CKD-EPI)NonAf 5 (>60 ml/min/1.73 sqM) Glucose 117 H (74-99) mg/dL Lactic Ac Sepsis Rflx Plasma Lactic Acid Rock 2.4 H* (0.7-2.0) mmol/L Calcium 9.1 (8.4-10.2) mg/dL Phosphorus 4.9 H (2.5-4.5) mg/dL Magnesium 1.7 (1.6-2.3) mg/dL Total Bilirubin 0.5 (0.2-1.3) mg/dL AST 20 (17-59) U/L ALT 13 (4-49) U/L Alkaline Phosphatase 107 (38-126) U/L Troponin I 0.014 (0.000-0.034) ng/mL NT-Pro-B Natriuret Pep pg/mL Total Protein 7.1 (6.3-8.2) g/dL Albumin 3.6 (3.5-5.0) g/dL TSH 1.890 (0.465-4.680) mIU/L Urine Color Urine Appearance (Clear) Urine pH (5.0-8.0) Ur Specific [place] (1.001-1.035) Urine Protein (Negative) Urine Glucose (UA) (Negative) Urine Ketones (Negative) Urine Blood (Negative) Urine Nitrite (Negative) Urine Bilirubin (Negative) Urine Urobilinogen (<2.0) mg/dL Ur Leukocyte Esterase (Negative) Urine RBC (0-5) /hpf Urine WBC (0-5) /hpf Urine Mucus (None) /hpf 06/13/21 06/13/21 Range/Units 04:58 06:38 WBC (3.8-10.6) k/uL RBC (4.30-5.90) m/uL Hgb (13.0-17.5) gm/dL Hct (39.0-53.0) % MCV (80.0-100.0) fL MCH (25.0-35.0) pg MCHC (31.0-37.0) g/dL RDW (11.5-15.5) % Plt Count (150-450) k/uL MPV Neutrophils % % Lymphocytes % % Monocytes % % Eosinophils % % Basophils % % Neutrophils # (1.3-7.7) k/uL Lymphocytes # (1.0-4.8) k/uL Monocytes # (0-1.0) k/uL Eosinophils # (0-0.7) k/uL Basophils # (0-0.2) k/uL PT (9.0-12.0) sec INR (<1.2) APTT (22.0-30.0) sec Sodium (137-145) mmol/L Potassium (3.5-5.1) mmol/L Chloride (98-107) mmol/L Carbon Dioxide (22-30) mmol/L Anion Gap mmol/L BUN (9-20) mg/dL Creatinine (0.66-1.25) mg/dL Est GFR (CKD-EPI)AfAm (>60 ml/min/1.73 sqM) Est GFR (CKD-EPI)NonAf (>60 ml/min/1.73 sqM) Glucose (74-99) mg/dL Lactic Ac Sepsis Rflx Y Plasma Lactic Acid Rock (0.7-2.0) mmol/L Calcium (8.4-10.2) mg/dL Phosphorus (2.5-4.5) mg/dL Magnesium (1.6-2.3) mg/dL Total Bilirubin (0.2-1.3) mg/dL AST (17-59) U/L ALT (4-49) U/L Alkaline Phosphatase (38-126) U/L Troponin I (0.000-0.034) ng/mL NT-Pro-B Natriuret Pep 6540 pg/mL Total Protein (6.3-8.2) g/dL Albumin (3.5-5.0) g/dL TSH (0.465-4.680) mIU/L Urine Color Urine Appearance (Clear) Urine pH (5.0-8.0) Ur Specific [place] (1.001-1.035) Urine Protein (Negative) Urine Glucose (UA) (Negative) Urine Ketones (Negative) Urine Blood (Negative) Urine Nitrite (Negative) Urine Bilirubin (Negative) Urine Urobilinogen (<2.0) mg/dL Ur Leukocyte Esterase (Negative) Urine RBC (0-5) /hpf Urine WBC (0-5) /hpf Urine Mucus (None) /hpf - EKG Data -: EKG Interpreted by Me (EKG is sinus rhythm 63 HI 196 QRS 144 QTC 480) - Radiology Data Radiology results: report reviewed (CT brain is negative for acute sidsase), image reviewed Critical Care Time Critical Care Time: Yes Total Critical Care Time: 31 Disposition Clinical Impression: Altered mental status, CVA (cerebral vascular accident), Expressive aphasia, Acute renal failure superimposed on stage 3 chronic kidney disease, ESRD (end stage renal disease) on dialysis, Chronic renal failure, Fall Disposition: ADMITTED IP TO THIS HOSP Condition: Fair Is patient prescribed a controlled substance at d/c from ED?: No
[2021-06-13 05:16] LABS: Basophils # (A) 0.1 k/uL (0-0.2); Basophils % (A) 1 %; Eosinophils # (A) 0.2 k/uL (0-0.7); Eosinophils % (A) 2 %; HGB 11.4 gm/dL (13.0-17.5); Lymphocytes # (A) 1.3 k/uL (1.0-4.8); Lymphocytes % (A) 10 %; MCH 32.9 pg (25.0-35.0); MCHC 33.6 g/dL (31.0-37.0); MCV 97.9 fL (80.0-100.0); Mean Platelet Volume 7.2; Monocytes # (A) 0.9 k/uL (0-1.0); Monocytes % (A) 7 %; Neutrophils % (A) 81 %; Platelet Count 244 k/uL (150-450); RBC 3.47 m/uL (4.30-5.90); RDW 12.9 % (11.5-15.5); WBC 13.6 k/uL (3.8-10.6)
[2021-06-13 05:34] LABS: Albumin 3.6 g/dL (3.5-5.0); Calcium 9.1 mg/dL (8.4-10.2); Magnesium 1.7 mg/dL (1.6-2.3); Phosphorus 4.9 mg/dL (2.5-4.5); Potassium 4.6 mmol/L (3.5-5.1); Total Bilirubin 0.5 mg/dL (0.2-1.3); Total Protein 7.1 g/dL (6.3-8.2)
[2021-06-13 05:38] LABS: Prothrombin Time 10.9 sec (9.0-12.0)
[2021-06-13 06:15] LABS: Appearance,Urine Clear (Clear); Bilirubin,Urine Negative (Negative); Blood,Urine Negative (Negative); Color,Urine Yellow; Glucose,Urine (UA) Negative (Negative); Ketones,Urine Negative (Negative); Leukocyte Esterase,Urine Negative (Negative); Mucus,Urine Rare /hpf; Nitrite,Urine Negative (Negative); Protein,Urine 2+ (Negative); RBC,Urine 2 /hpf (0-5); Specific Gravity,Urine 1.016 (1.001-1.035); Urobilinogen,Urine <2.0 mg/dL (<2.0); WBC,Urine 4 /hpf (0-5)
[2021-06-13] MEDS ORDERED: ASPIRIN 325 MG TAB PO STA (06:40)
[2021-06-13] MEDS ORDERED: LORazepam 2 MG/ML INJ IV STA ×2 (07:06→07:19)
[2021-06-13] MEDS ORDERED: MORPHINE SULFATE 4 MG/ML SYRINGE IVP STA (07:19)
[2021-06-13] MEDS: SODIUM CHLORIDE 0.9% 1,000 ML IV SCH ×2 (08:37→21:49)
[2021-06-13] MEDS ORDERED: ONDANSETRON 4 MG/2 ML VIAL IVP STA (11:15)
[2021-06-13] MEDS ORDERED: traMADol-ACETAMINOP 37.5-325MG 1 EACH TAB PO PRN (11:59)
[2021-06-13] MEDS ORDERED: METOCLOPRAMIDE 5 MG TAB PO PRN (11:59)
[2021-06-13] MEDS ORDERED: NITROGLYCERIN SL TABS 0.4 MG TAB SUBLINGUAL PRN (11:59)
--- NOTE | 2021-06-13 11:59 | XR ---
EXAMINATION TYPE: XR chest 1V DATE OF EXAM: 06/13/2021 COMPARISON: 03/17/2020 HISTORY: Patient unresponsive TECHNIQUE: Single frontal view of the chest is obtained. FINDINGS: A coarsened interstitium. Postsurgical change epigastrium. Heart size prominent. Atheroscl erotic change aorta. No pneumothorax. Arthropathy of the shoulders. IMPRESSION: Interstitium is coarsened correlate for chronic interstitial lung disease. Superimposed interstitial pneumonitis or venous congestion not excluded.
--- NOTE | 2021-06-13 12:44 | CONS ---
CONSULTATION REASON FOR CONSULTATION: End-stage renal disease. HISTORY OF PRESENT ILLNESS: Patient is a 75-year-old male with end-stage renal disease, on hemodialysis on a Thursday, , Thursday schedule via left arm AV fistula. Patient was admitted to the hospital from half-way with mental status changes. He remains confused, and these are new findings. Initial CT scan done on admission was negative. There is no fever noted. Blood pressure has been slightly on the lower side. Patient has not missed dialysis as outpatient. Lactic acid was elevated. Coronavirus PCR is negative. No seizures noted. PAST MEDICAL HISTORY: End-stage renal disease, CKD mineral bone disorder, hypertension, anemia of chronic disease, dyslipidemia, coronary artery disease, COPD, gastroesophageal reflux disease, deafness, history of skin cancer, obstructive sleep apnea, hemorrhoids, Prabhakar's esophagus. PAST SURGICAL HISTORY: Significant for appendectomy, cholecystectomy, cardiac catheterization, coronary stent placement, hernia repair, left arm AV fistula, EGDs, colonoscopies, Jerson fundoplication, ruptured gallbladder with cholecystectomy, appendectomy and piece of bowel removed, hemorrhoidectomy, cataract surgery. SOCIAL HISTORY: Negative for smoking, drug abuse or alcohol abuse. Patient resides at half-way. MEDICATIONS: Medications prior to admission include Lipitor, Avodart, felodipine, Singulair, Imdur, Demadex, Uloric, lansoprazole, magnesium, Reglan, Lopressor, Renvela, Xolair, aspirin, Lexapro, loratadine, Ultracet. ALLERGIES: ALLERGIES include BENADRYL, which causes confusion. REVIEW OF SYSTEMS: As per HPI. Other systems negative. PHYSICAL EXAMINATION: Patient is awake. He is confused. Blood pressure 121/77, heart rate 77 per minute. Patient is afebrile. EXAMINATION OF THE HEART: S1 and S2. EXAMINATION OF LUNGS: Decreased breath sounds at the bases. Abdomen is soft, non-tender. Examination of lower extremities shows no evidence of edema. 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 LABS: Sodium of 133, potassium 4.6, BUN 65, serum creatinine 8.5. Lactic acid 2.4 down to 2.0. Hemoglobin 11.4 g/dL. UA is quite benign. Chest x-ray not done. ASSESSMENT: 1. End-stage renal disease, on hemodialysis on a Thursday, , Thursday schedule via left arm AV fistula. Will arrange for hemodialysis today. 2. Lactic acidosis, most likely associated with hypotension, hypoperfusion, currently improved, status post IV fluids. I will decrease the IV fluids. Urine does not have any significant cells to suggest UTI. I recommend having a chest x-ray done to rule out pneumonia. 3. Chronic kidney disease mineral bone disorder. 4. Coronary artery disease with history of coronary stents. 5. Mental status changes, possibly related to underlying sepsis. Initial CT scan negative. No gross motor deficits noted. Will likely repeat CT of the head in 24- 48 hours. Consult Neurology if no improvement. PLAN: Hemodialysis today. Check chest x-ray. Decrease IV fluids. Thank you for this consultation. Will continue to follow the patient with you during his hospitalization. MMODL / IJN: [id number] /
--- NOTE | 2021-06-13 12:48 | P.HPIM ---
History of Present Illness H&P Date: 06/13/21 HISTORY OF PRESENT ILLNESS This is a 74-year-old male one my patient with a previous medical history significant for hypertension and hypertensive cardiovascular disease, hyperlipidemia, end-stage renal disease on hemodialysis Thursday and Thursday, history of asthma/COPD, history of CAD post-PCI, history of ankylosing spondylitis, obstructive sleep apnea on a CPAP. Patient was last hospitalized in March which time he was treated for recurrent falls, gait dysfunction and memory loss with recent right lower lobe pneumonia, discharged to [facility] for subacute rehab. Patient's heard a thump downstairs around 3 AM and patient was found on the floor, couldn't get up. Patient states he was unable to move. He apparently was unable to speak at the time or follow directions. He was brought in by EMS to [facility] emergency center. He was afebrile, initial heart rate 146, blood pressure 88/55, pulse ox 95%. EKG was a sinus rhythm at 63 bpm. CAT scan of the brain showed no acute intracranial abnormality. Cerebral atrophy. CT angiogram of the head and neck were ordered but patient was unable to relax for neck films and was given Ativan. WBC 13.6, hemoglobin 1.4, platelet count 244. INR 1.0. Urinalysis negative for infection. Troponin negative. ProBNP is 6540. Lactic acid 2.4 and repeat 2.0. Phosphorus 4.9, magnesium 1.7.Coronavirus PCR not detected Chest x-ray shows correlate for chronic interstitial lung disease. Superimposed interstitial pneumonitis or venous congestion not excluded. Patient is status post 1 L of IV fluids, Zofran, morphine and IV Ativan 2. Patient is seen today in the emergency center waiting for a bed on the cardiac stepdown unit, consult with nephrology and neurology. REVIEW OF SYSTEMS Constitutional: No fever, no chills, no night sweats. No weight change. No weakness, fatigue or lethargy. No daytime sleepiness. EENT: No headache. No blurred vision or double vision, no loss of vision. No loss of Hearing, no ringing in the ears, no dizziness. No nasal drainage or congestion. No epistaxis. No sore throat. Lungs: No shortness of breath, cough, no sputum production. No wheezing. Cardiovascular: No chest pain, no lower extremity edema. No palpitations. No paroxysmal nocturnal dyspnea. No orthopnea. No lightheadedness or dizziness. No syncopal episodes. Abdominal: No abdominal pain. No nausea, vomiting. No diarrhea. No constipat ion. No bloody or tarry stools.. No loss of appetite. Genitourinary: No dysuria, increased frequency, urgency. No urinary retention. Musculoskeletal: No myalgias. No muscle weakness, no gait dysfunction, no frequent falls. No back pain. No neck pain. Integumentary: No wounds, no lesions. No rash or pruritus. No unusual bruising. No change in hair or nails. Neurologic: Reported aphasia. No facial droop. Noted change in mentation. No head injury. No headache. No paralysis. No paresthesia. Psychiatric: No depression. No anxiety. No mood swings. Endocrine: No abnormal blood sugars. No weight change. No excessive sweating or thirst. No cold intolerance. MEDICAL HISTORY Hypertension and hypertensive perivascular disease Hyperlipidemia Coronary artery disease status post PCI Chronic diastolic heart failure Moderate intermittent persistent asthma Benign prostatic hypertrophy Gastroesophageal reflux disease with Concepcion's esophagus Idiopathic gout Major depressive disorder ALLERGIC rhinitis End-stage renal disease on hemodialysis Thursday Ankylosing spondylitis Obstructive sleep apnea on CPAP SURGICAL HISTORY Appendectomy Cholecystectomy Left heart catheterization with PCI and stent Hernia repair Left arm fistula EGD and colonoscopies Niesen fundoplication Hemorrhoidectomy Bilateral cataract removal and intraocular lens implants. SOCIAL HISTORY Patient is a lifelong nonsmoker, no illicit drug use, no alcohol use. Patient was at home with his . He was recently at [facility] for subacute rehab. FAMILY HISTORY Father at age 48 from myocardial infarction. Mother at age 72 from breast cancer. Patient has one sister, one son and one daughter with no major medical problems. PHYSICAL EXAMINATION Gen: This is a 75-year-old obese occasion male. He is resting on the ER stretcher and appears to be comfortable at rest. Patient is somewhat sedated after receiving Ativan. HEENT: Head is atraumatic, normocephalic. Pupils equal, round. Sclerae is anicteric. NECK: Supple. No JVD. No lymphadenopathy. No thyromegaly. LUNGS: Decreased breath sounds at the bases. No crackles, no wheezes. No intercostal retractions. HEART: First heart sound is depressed, second heart sound is normal, there is systolic ejection murmur 2/6 located in the left sternal border. ABDOMEN: Soft. Bowel sounds are present. No masses. No tenderness. EXTREMITIES: No pedal edema. No calf tenderness. Dorsalis pedis +2 bilatera lly. NEUROLOGICAL: Patient is drowsy, unable to answer questions, follow commands. ASSESSMENT AND PLAN 1. Altered mental status possible CVA. Consult with neurology, MRI of the brain, CT angiogram is pending, EEG, echocardiogram, lipid panel, consult with PT, OT, speech therapy. Continue aspirin 325 mg daily, atorvastatin 10 mg Thursday. 2. End-stage renal disease on hemodialysis. Consult with nephrology. 3. Hypertension, hypertensive cardiovascular disease. Continue felodipine 10 mg Thursday and Thursday, Lopressor, Imdur 4. Hyperlipidemia. Continue atorvastatin. 5. History of coronary artery disease status post PCI. Continue Imdur 30 mg daily, aspirin, Lipitor, continue Lopressor 100 mg at bedtime. 6. Chronic diastolic heart failure, stable without exacerbation. Continue Demadex 20 mg daily, Lopressor, Renvela. 7. Moderate intermittent asthma, stable. Continue Ventolin inhaler 2 puffs 4 times daily, qvar or equivalent. 8. Benign prostatic hypertrophy. Monitor for urinary retention. 9. Gastroesophageal reflux disease. Continue PPI. 10. Benign prostatic hypertrophy. 11. DVT prophylaxis. Heparin subcu. 12. COVID-19 testing negative. Patient has been hospitalized during a pandemic. Patient will be admitted to the hospital for a minimum of 2 night stay. DISCHARGE PLAN To be determined. Impression and plan of care have been directed as dictated by the signing ysician. Missy Manzano nurse practitioner acting as scribe for signing physician. Past Medical History Past Medical History: Asthma, Coronary Artery Disease (CAD), Cancer, Heart Failure, COPD, GERD/Reflux, Hearing Disorder / Deafness, Hyperlipidemia, Hypertension, Osteoarthritis (OA), Prostate Disorder, Renal Disease, Sleep Apnea/CPAP/BIPAP Additional Past Medical History / Comment(s): ESRD with hemodialysis on //Thu, anemia, BPH, bronchitis, chronic low back pain, ankylosing spondylosis, gout in ankles in past, concepcion's esophagus, colon polyp, hemorrhoids, behind L ear basal cell skin cancer with removal, L hand squamous cell skin cancer removal, JF with Bipap, bilateral tinnitis, CHF per 2017 medical record but pt does not recall. History of Any Multi-Drug Resistant Organisms: None Reported Past Surgical History: Appendectomy, Cholecystectomy, Heart Catheterization, Heart Catheterization With Stent, Hernia Repair Additional Past Surgical History / Comment(s): Fistula L arm, EGDs, colonoscopies, abdominal hernia repair, ivette fundoplication, ruptured gallbladder with christelle/appy and piece of bowel removed, hemorrhoidectomy, behind L ear lesion removed and another from L hand, bilateral cataract removals/lens implants. Past Anesthesia/Blood Transfusion Reactions: No Reported Reaction Additional Past Anesthesia/Blood Transfusion Reaction / Comment(s): . Date of Last Stent Placement:: 2003 Past Psychological History: No Psychological Hx Reported Smoking Status: Never smoker Past Alcohol Use History: None Reported Past Drug Use History: None Reported - Past Family History Mother Family Medical History: Cancer Additional Family Medical History / Comment(s): Mother at age 72 from BREAST CANCER Father Family Medical History: Myocardial Infarction (AR) Additional Family Medical History / Comment(s): Father of a AR at the age of 48 yrs. Sister(s) Family Medical History: Diabetes Mellitus Additional Family Medical History / Comment(s): Patient has one sister. Patient's son have any brothers. Patient has 2 children with no major medical problems. Medications and Allergies Home Medications Medication Instructions Recorded Confirmed Type Atorvastatin Calcium [Lipitor] 10 mg PO MO11/11/14 06/13/21 History Dutasteride [Avodart] 0.5 mg PO DAILY 11/11/14 06/13/21 History Felodipine [Felodipine ER] 10 mg PO SUMOWE11/11/14 06/13/21 History Montelukast [Singulair] 10 mg PO 11/11/14 06/13/21 History Beclomethasone Dipropionate [Qvar 2 puff INHALATION RT-BID 11/21/15 06/13/21 His tory 80 mcg/puff] Ergocalciferol [Vitamin D2 50,000 unit PO WE 11/21/15 06/13/21 History (DRISDOL)] Isosorbide Mononitrate ER [Imdur] 30 mg PO HS 11/21/15 06/13/21 History Torsemide [Demadex] 20 mg PO DAILY 11/21/15 06/13/21 History Febuxostat [Uloric] 80 mg PO DAILY 10/22/16 06/13/21 History Lansoprazole 30 mg PO DAILY 10/22/16 06/13/21 History Metoclopramide [Reglan] 5 mg PO TID PRN 08/27/17 06/13/21 History Metoprolol Tartrate [Lopressor] 100 mg PO HS 11/03/19 06/13/21 History Sevelamer [Renvela] 800 mg PO BID 11/03/19 06/13/21 History Albuterol Inhaler [Ventolin Hfa 2 puff INHALATION RT-QID 02/11/20 06/13/21 History Inhaler] Omalizumab [Xolair] 150 mg SQ Q28D 02/13/20 06/13/21 History Aspirin [Adult Low Dose Aspirin EC] 81 mg PO DAILY 03/17/20 06/13/21 History Docusate Sodium [Dok] 100 mg PO BID 03/17/20 06/13/21 History Loratadine 10 mg PO HS 03/17/20 06/13/21 History Lidocaine-Prilocaine Cream [Emla 1 applic TOPICAL DIRECTED 06/13/21 06/13/21 History Cream 2.5%/2.5%] Nitroglycerin Sl Tabs [Nitrostat] 0.4 mg SUBLINGUAL Q5M PRN 06/13/21 06/13/21 History Renavite 1 tab PO HS 06/13/21 06/13/21 History traMADol HCL/ACETAMINOPHEN 1 tab PO BID 06/13/21 06/13/21 History [Ultracet 37.5-325] Allergies Allergy/AdvReac Type Severity Reaction Status Date / Time diphenhydramine HCl Allergy Confusion Verified 06/13/21 07:37 [From Benadryl] Physical Exam Vitals: Vital Signs Temp Pulse Resp BP Pulse Ox 06/13/21 06:45 58 L 18 92/33 98 06/13/21 06:00 58 L 18 125/54 94 L 06/13/21 05:30 62 18 108/56 95 06/13/21 05:15 68 18 120/68 95 06/13/21 05:08 66 18 120/58 95 06/13/21 04:05 98.2 F 146 H 18 99/55 95 Intake and Output 06/12/21 06/13/21 06/13/21 22:59 06:59 14:59 Other: Weight 108.862 kg Results CBC & Chem 7: 06/13/21 04:58 06/13/21 04:58 Labs: Abnormal Lab Results - Last 24 Hours (Table) 06/13/21 06/13/21 06/13/21 Range/Units 04:58 04:58 04:58 WBC 13.6 H (3.8-10.6) k/uL RBC 3.47 L (4.30-5.90) m/uL Hgb 11.4 L (13.0-17.5) gm/dL Hct 34.0 L (39.0-53.0) % Neutrophils # 11.0 H (1.3-7.7) k/uL Sodium 133 L (137-145) mmol/L Chloride 94 L (98-107) mmol/L BUN 65 H (9-20) mg/dL Creatinine 8.54 H* (0.66-1.25) mg/dL Glucose 117 H (74-99) mg/dL Plasma Lactic Acid Rock (0.7-2.0) mmol/L Phosphorus 4.9 H (2.5-4.5) mg/dL Urine Protein 2+ H (Negative) Urine Mucus Rare H (None) /hpf 06/13/21 Range/Units 04:58 WBC (3.8-10.6) k/uL RBC (4.30-5.90) m/uL Hgb (13.0-17.5) gm/dL Hct (39.0-53.0) % Neutrophils # (1.3-7.7) k/uL Sodium (137-145) mmol/L Chloride (98-107) mmol/L BUN (9-20) mg/dL Creatinine (0.66-1.25) mg/dL Glucose (74-99) mg/dL Plasma Lactic Acid Rock 2.4 H* (0.7-2.0) mmol/L Phosphorus (2.5-4.5) mg/dL Urine Protein (Negative) Urine Mucus (None) /hpf
--- NOTE | 2021-06-13 13:43 | P.CNNES ---
History of Present Illness Consult date: 06/13/21 Requesting physician: Sridhar Delcid Reason for Consult: CVA History of Present Illness: Patient is a 75-year-old male came to the hospital early this morning at 3:55 AM by ambulance. Patient not able to provide any history. As per EMS flow sheet, when they arrived patient was laying on the ground. Patient's has mentioned that he fell from chair. Patient denied any loss of consciousness or head or neck or back pain. Patient was confused. Patient has possible slurred speech but inconclusive due to poor history from family. Patient was alert 1 and family states normally he is alert 3. 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 Patient denied any pain. Patient's vitals at the scene was blood pressure 135/74, pulse rate 68, respirations 18. Blood glucose 135. Vital signs on arrival blood pressure 99/55, pulse rate 146, temperature 98.2. The vitals improved to 120/58 and [address] head showed no acute intracranial abnormality. EKG with sinus rhythm with premature atrial complexes. Left bundle branch block. Patient was evaluated in the ED by the ED staff. Patient's last known well was around 10 PM before he went to bed (6 hours prior to arrival). Therefore he was not a candidate for TPA. CTA was planned, but according to the notes from ED, it was not performed because patient being dialysis patient, the plan was to obtain CTA prior to the di alysis. Patient was given 325 mg aspirin in the ER. Patient currently takes Lipitor 10 mg, vitamin D, Demadex, aspirin 81 mg, tramadol. Patient at present appears to be aphasic. Not able to provide any history. Review of Systems ROS unobtainable: due to mental status Past Medical History Past Medical History: Asthma, Coronary Artery Disease (CAD), Cancer, Heart Failure, COPD, GERD/Reflux, Hearing Disorder / Deafness, Hyperlipidemia, Hypertension, Osteoarthritis (OA), Prostate Disorder, Renal Disease, Sleep Apne a/CPAP/BIPAP Additional Past Medical History / Comment(s): ESRD with hemodialysis on //Thu, anemia, BPH, bronchitis, chronic low back pain, ankylosing spondylosis, gout in ankles in past, concepcion's esophagus, colon polyp, hemorrhoids, behind L ear basal cell skin cancer with removal, L hand squamous cell skin cancer removal, JF with Bipap, bilateral tinnitis, CHF per 2017 medical record but pt does not recall. History of Any Multi-Drug Resistant Organisms: None Reported Past Surgical History: Appendectomy, Cholecystectomy, Heart Catheterization, Heart Catheterization With Stent, Hernia Repair Additional Past Surgical History / Comment(s): Fistula L arm, EGDs, colonoscopies, abdominal hernia repair, ivette fundoplication, ruptured gallbladder with christelle/appy and piece of bowel removed, hemorrhoidectomy, behind L ear lesion removed and another from L hand, bilateral cataract removals/lens implants. Past Anesthesia/Blood Transfusion Reactions: No Reported Reaction Additional Past Anesthesia/Blood Transfusion Reaction / Comment(s): . Date of Last Stent Placement:: 2003 Past Psychological History: No Psychological Hx Reported Smoking Status: Never smoker Past Alcohol Use History: None Reported Past Drug Use History: None Reported - Past Family History Mother Family Medical History: Cancer Additional Family Medical History / Comment(s): Mother at age 72 from BREAST CANCER Father Family Medical History: Myocardial Infarction (DC) Additional Family Medical History / Comment(s): Father of a DC at the age of 48 yrs. Sister(s) Family Medical History: Diabetes Mellitus Additional Family Medical History / Comment(s): Patient has one sister. Patient's son have any brothers. Patient has 2 children with no major medical problems. Medications and Allergies Home Medications Medication Instructions Recorded Confirmed Type Atorvastatin Calcium [Lipitor] 10 mg PO MO11/11/14 06/13/21 History Dutasteride [Avodart] 0.5 mg PO DAILY 11/11/14 06/13/21 History Felodipine [Felodipine ER] 10 mg PO SUMOWE11/11/14 06/13/21 History Montelukast [Singulair] 10 mg PO 11/11/14 06/13/21 History Beclomethasone Dipropionate [Qvar 2 puff INHALATION RT-BID 11/21/15 06/13/21 History 80 mcg/puff] Ergocalciferol [Vitamin D2 50,000 unit PO WE 11/21/15 06/13/21 History (DRISDOL)] Isosorbide Mononitrate ER [Imdur] 30 mg PO HS 11/21/15 06/13/21 History Torsemide [Demadex] 20 mg PO DAILY 11/21/15 06/13/21 History Febuxostat [Uloric] 80 mg PO DAILY 10/22/16 06/13/21 History Lansoprazole 30 mg PO DAILY 10/22/16 06/13/21 History Metoclopramide [Reglan] 5 mg PO TID PRN 08/27/17 06/13/21 History Metoprolol Tartrate [Lopressor] 100 mg PO HS 11/03/19 06/13/21 History Sevelamer [Renvela] 800 mg PO BID 11/03/19 06/13/21 History Albuterol Inhaler [Ventolin Hfa 2 puff INHALATION RT-QID 02/11/20 06/13/21 History Inhaler] Omalizumab [Xolair] 150 mg SQ Q28D 02/13/20 06/13/21 History Aspirin [Adult Low Dose Aspirin EC] 81 mg PO DAILY 03/17/20 06/13/21 History Docusate Sodium [Dok] 100 mg PO BID 03/17/20 06/13/21 History Loratadine 10 mg PO HS 03/17/20 06/13/21 History Lidocaine-Prilocaine Cream [Emla 1 applic TOPICAL DIRECTED 06/13/21 06/13/21 History Cream 2.5%/2.5%] Nitroglycerin Sl Tabs [Nitrostat] 0.4 mg SUBLINGUAL Q5M PRN 06/13/21 06/13/21 History Renavite 1 tab PO HS 06/13/21 06/13/21 History traMADol HCL/ACETAMINOPHEN 1 tab PO BID 06/13/21 06/13/21 History [Ultracet 37.5-325] Allergies Allergy/AdvReac Type Severity Reaction Status Date / Time diphenhydramine HCl Allergy Confusion Verified 06/13/21 07:37 [From Benadryl] Physical Examination - Vital Signs Vital Signs: Vital Signs Temp Pulse Resp BP Pulse Ox 06/13/21 09:08 77 20 121/77 97 06/13/21 08:33 78 20 110/40 96 06/13/21 06:45 58 L 18 92/33 98 06/13/21 06:00 58 L 18 125/54 94 L 06/13/21 05:30 62 18 108/56 95 06/13/21 05:15 68 18 120/68 95 10/07/21 05:08 66 18 120/58 95 06/13/21 04:05 98.2 F 146 H 18 99/55 95 Intake and Output 06/12/21 06/13/21 06/13/21 22:59 06:59 14:59 Other: Weight 108.862 kg Patient is an elderly male, who is laying comfortably in the bed. Patient is alert awake, probably aphasic, minimal comprehension. Patient speaks a few words. Speech and language functions are normal. Patient could not name any object. He could not repeat. Attention, concentration and fund of knowledge is unable to be assessed. On cranial examination, pupils are round and reacting to light, visual sanchez could not be checked, extraocular muscles are intact, although it appears that he had better gaze to the left as compared to the right. No obvious nystagmus. Face is symmetric, tongue protrudes to the midline. Palatal elevation and sensation cannot be checked, hearing appears decreased and shoulder shrug normal, facial sensation cannot be checked. On muscle strength testing, there is no obvious pronator drift. Patient did not cooperate with examination. When the arms were held up in the air, he kept the arms up with no obvious focal weakness. He slowly brought down arms equally. Tone is equal bilaterally. Deep tendon reflexes are 1 in the right side of the body, 2 in the left side of the body and patient has plantar which is downgoing on the right, up on the left. Sensory to touch could not be checked.. Cerebellar function could not be checked. Tone and bulk of muscles normal. Gait could not be checked. On general examination, there is no carotid bruit or murmur, S1-S2 audible. Abdomen is soft nontender. Chest is clear. Peripheral pulses are present. Results - Laboratory Findings CBC and BMP: 06/13/21 04:58 06/13/21 04:58 Abnormal Lab Findings: Abnormal Labs 06/13/21 06/13/21 06/13/21 04:58 04:58 04:58 WBC 13.6 H RBC 3.47 L Hgb 11.4 L Hct 34.0 L Neutrophils # 11.0 H Sodium 133 L Chloride 94 L BUN 65 H Creatinine 8.54 H* Glucose 117 H Plasma Lactic Acid Rock Phosphorus 4.9 H Urine Protein 2+ H Urine Mucus Rare H 06/13/21 04:58 WBC RBC Hgb Hct Neutrophils # Sodium Chloride BUN Creatinine Glucose Plasma Lactic Acid Rock 2.4 H* Phosphorus Urine Protein Urine Mucus Assessment and Plan Assessment: * Acute altered mental status, probable acute stroke. Rule out metabolic encephalopathy, or focal seizure. * Hypertension * Hyperlipidemia * Diabetes * ESRD on hemodialysis * CAD * Ankylosing spondylitis Plan: * Stat MRI of the brain to evaluate for acute stroke. MRA of the head to rule out any intracranial stenosis or occlusion. * Stat EEG rule out any epileptiform activity. * Stat Carotid Doppler. * 2-D echo rule out embolic source * Patient's hemoglobin A1c 5.7 on 10/22/2020. * Lipid panel with cholesterol 112, LDL 49, HDL 35 and triglycerides 140 on 02/01/2021. * We will check B12, folate. * Continue aspirin 325 mg daily for now. Patient was on aspirin 81 mg daily at home. * Further management based upon above test results.
[2021-06-13] MEDS: ALBUTEROL HFA INHALER INHALATION SCH ×3 (15:40→21:10)
--- NOTE | 2021-06-13 15:51 | US ---
EXAMINATION TYPE: US carotid duplex BILAT DATE OF EXAM: 06/13/2021 COMPARISON: NONE CLINICAL HISTORY: aphasia, rule out CVA. EXAM MEASUREMENTS: RIGHT: Peak Systolic Velocity (PSV) cm/sec ----- Right CCA: 72.9 ----- Right ICA: 89.5 ----- Right ECA: 148 ICA/CCA ratio: 1.2 RIGHT: End Diastole cm/sec ----- Right CCA: 10.8 ----- Right ICA: 26.5 ----- Right ECA: 17.4 LEFT: Peak Systolic Velocity (PSV) cm/sec ----- Left CCA: 98.6 ----- Left ICA: 125 ----- Left ECA: 166 ICA/CCA ratio: 1.3 LEFT: End Diastole cm/sec ----- Left CCA: 14.1 ----- Left ICA: 29.8 ----- Left ECA: 17.8 VERTEBRALS (direction of flow): Right Vertebral: Not seen Left VertebralAntegrade- 87.1 Rhythm: Normal Very difficult exam, vessels tortuous- Pt movement- Pt position (leaning toward right side) Left ICA borderline high velocity. IMPRESSION: 1. No significant hemodynamic stenosis. Criteria for Assigning % of Stenosis / Diameter reduction (Estimation based on the indirect measurements of the internal carotid artery velocities (ICA PSV). 1. Normal (no stenosis)=ICA PSV < 125 cm/s: ratio < 2.0: ICA EDV<40 cm/s. 2. Less than 50% stenosis=ICA PSV < 125 cm/s: ratio < 2.0: ICA EDV<40 cm/s. 3. 50 to 69% stenosis=ICA PSV of 125 to 230 cm/s: ration 2.0 ? 4.0: ICA EDV 40-100 cm/s. 4. Greater than 70% stenosis to near occlusion= ICA PSV > 230 cm/s: ratio > 4.0: ICA EDV > 100 cm/s. 5. Near occlusion= ICA PSV velocities may be low or undetectable: variable ratio and ICA EDV. 6. Total occlusion=unable to detect flow.
--- NOTE | 2021-06-13 17:01 | ECHOF ---
Referral Reason:Thrombus MEASUREMENTS -------- HEIGHT: 152.4 cm WEIGHT: 108.9 kg BP: RVIDd: 3.2 cm (< 3.3) IVSd: 1.2 cm (0.6 - 1.1) LVIDd: 4.5 cm (3.9 - 5.3) LVPWd: 1.7 cm (0.6 - 1.1) IVSs: 1.4 cm LVIDs: 2.6 cm LVPWs: 1.6 cm MV E Mic: 1.17 m/s MV DecT: 200 ms MV A Mic: 0.59 m/s MV E/A Ratio: 1.96 FINDINGS -------- Undetermined rhythm. This was a techncally difficult study with suboptimal views, , Lumason utilized for enhancement of im ages. The left ventricular size is normal. There is mild concentric left ventricular hypertrophy. Overa ll left ventricular systolic function is low-normal with, an EF between 50 - 55 %. The right ventricle is normal in size. The left atrial size is normal. The right atrial size is normal. The aortic valve was not well visualized. The mitral valve was not well visualized. The tricuspid valve was not well visualized. Unable to estimate RVSP due to inadequate TR jet spect ral doppler profile. The pulmonic valve was not well visualized. There is no pericardial effusion. CONCLUSIONS -------- 1. This was a techncally difficult study with suboptimal views, , Lumason utilized for enhancement of images. 2. The left ventricular size is normal. 3. There is mild concentric left ventricular hypertrophy. 4. Overall left ventricular systolic function is low-normal with, an EF between 50 - 55 %. 5. The right ventricle is normal in size. 6. The left atrial size is normal. 7. The right atrial size is normal. 8. The aortic valve was not well visualized. 9. The mitral valve was not well visualized. 10. The tricuspid valve was not well visualized. 11. Unable to estimate RVSP due to inadequate TR jet spectral doppler profile. 12. The pulmonic valve was not well visualized. 13. There is no pericardial effusion. CONFIGURATION CONSULTANT: Christelle Vizcarra RDCS
[2021-06-13] MEDS: HEPARIN SODIUM,PORCINE/PF 5,000 UNIT/0.5 ML SYRINGE SQ SCH ×2 (19:17→23:22)
--- NOTE | 2021-06-13 19:25 | EEG ---
ELECTROENCEPHALOGRAM REPORT DATE OF SERVICE: 06/13/2021 PREAMBLE: This is a 75-year-old male with new-onset aphasia and altered mental status. This study is performed to evaluate for encephalopathy versus any epileptiform activity. EEG FINDING: This is a 21-channel digital EEG recorded with video competent, utilizing 10/20 international system with referential and bipolar montages. Background consists of poorly developed and regulated mixed frequency of moderate amplitude mixed 4-6 hertz theta, with 2-3 hertz delta activity seen in bihemispheric region. Background does not seem to be reactive to eye opening and closing. Photic driving response was not seen. Different stages of sleep were not seen. No focal or generalized epileptiform activity was seen. IMPRESSION: This is an abnormal EEG due to background slowing of moderate to severe degree. This is suggestive of generalized cerebral dysfunction as can be seen with toxic metabolic encephalopathy or due to diffuse structural brain abnormality. No epileptiform activity was seen. MMODL / IJN: [id number] /
[2021-06-13] MEDS: FLUTICASONE 110 MCG INHALER INHALATION SCH (21:11)
[2021-06-13] MEDS: METOPROLOL TARTRATE 50 MG TAB PO SCH (21:56)
[2021-06-13] MEDS: LORATADINE 10 MG TAB PO SCH (21:56)
[2021-06-13] MEDS: DOCUSATE 100 MG CAP PO SCH (21:56)
[2021-06-13] MEDS: SEVELAMER 800 MG TAB PO SCH (21:56)
[2021-06-13] MEDS: ISOSORBIDE MONONITRATE ER 30 MG TAB.ER.24H PO SCH (21:56)
[2021-06-13] MEDS: MONTELUKAST 10 MG TAB PO SCH (21:56)
[2021-06-14] MEDS: PANTOPRAZOLE 40 MG TABLET PO SCH (06:08)
[2021-06-14] MEDS ORDERED: LORazepam 2 MG/ML INJ IV STA ×2 (08:25→21:34)
[2021-06-14] MEDS: TORSEMIDE 20 MG TAB PO SCH (08:27)
[2021-06-14] MEDS: FINASTERIDE 5 MG TAB PO SCH (08:27)
[2021-06-14] MEDS: DOCUSATE 100 MG CAP PO SCH ×2 (08:27→20:32)
[2021-06-14] MEDS: allopurinoL 100 MG TAB PO SCH (08:27)
[2021-06-14] MEDS: SEVELAMER 800 MG TAB PO SCH ×2 (08:27→20:32)
[2021-06-14] MEDS: ASPIRIN 325 MG TAB PO SCH (08:28)
[2021-06-14] MEDS: HEPARIN SODIUM,PORCINE/PF 5,000 UNIT/0.5 ML SYRINGE SQ SCH ×3 (08:28→23:01)
[2021-06-14] MEDS ORDERED: NON FORMULARY DRUG (Aspirin [Adult Low Dose Aspirin Ec] 81 MG Tablet.Dr) PO SCH (09:00)
[2021-06-14] MEDS: FLUTICASONE 110 MCG INHALER INHALATION SCH ×2 (09:10→21:04)
[2021-06-14] MEDS: ALBUTEROL HFA INHALER INHALATION SCH ×4 (09:10→21:03)
--- NOTE | 2021-06-14 09:31 | P.PN ---
Subjective Progress Note Date: 06/14/21 HISTORY OF PRESENT ILLNESS This is a 74-year-old male one my patient with a previous medical history significant for hypertension and hypertensive cardiovascular disease, hyperlipidemia, end-stage renal disease on hemodialysis Thursday and Thursday, history of asthma/COPD, history of CAD post-PCI, history of ankylosing spondylitis, obstructive sleep apnea on a CPAP. Patient was last hospitalized in March which time he was treated for recurrent falls, gait dysfunction and memory loss with recent right lower lobe pneumonia, discharged to [facility] for subacute rehab. Patient's heard a thump downstairs around 3 AM and patient was found on the floor, couldn't get up. Patient states he was unable to move. He apparently was unable to speak at the time or follow directions. He was brought in by EMS to [facility] emergency center. He was afebrile, initial heart rate 146, blood pressure 88/55, pulse ox 95%. EKG was a sinus rhythm at 63 bpm. CAT scan of the brain showed no acute intracranial abnormality. Cerebral atrophy. CT angiogram of the head and neck were ordered but patient was unable to relax for neck films and was given Ativan. WBC 13.6, hemoglobin 1.4, platelet count 244. INR 1.0. Urinalysis negative for infection. Troponin negative. ProBNP is 6540. Lactic acid 2.4 and repeat 2.0. Phosphorus 4.9, magnesium 1.7.Coronavirus PCR not detected Chest x-ray shows correlate for chronic interstitial lung disease. Superimposed interstitial pneumonitis or venous congestion not excluded. Patient is status post 1 L of IV fluids, Zofran, morphine and IV Ativan 2. Patient is seen today in the emergency center waiting for a bed on the cardiac stepdown unit, consult with nephrology and neurology. 06/14: Patient is seen today in follow-up on the cardiac stepdown unit. Patient is awake and alert. He denies having any pain. He is scheduled for MRI today and Ativan will be provided prior to procedure. He underwent hemodialysis yesterday. Patient has been afebrile, heart rate in the 60s, blood pressure 159/67, pulse ox 96% on room air. Repeat blood work ordered for tomorrow. PT, OT, speech therapies are ordered. Patient has been seen by neurology and MRI is scheduled for today and EEG was completed and revealed toxic metabolic encephalopathy or due to diffuse structural brain abnormality. No epileptiform activity. Carotid ultrasound showed no significant hemodynamic stenosis. Echocardiogram reveals EF of 50-55%, mild concentric left hypertrophy, technically suboptimal views. REVIEW OF SYSTEMS Constitutional: No fever, no chills, no night sweats. No weight change. G eneralized weakness, and fatigue no lethargy. No daytime sleepiness. EENT: No headache. No blurred vision or double vision, no loss of vision. No loss of Hearing, no ringing in the ears, no dizziness. No nasal drainage or congestion. No epistaxis. No sore throat. Lungs: No shortness of breath, cough, no sputum production. No wheezing. Cardiovascular: No chest pain, no lower extremity edema. No palpitations. No paroxysmal nocturnal dyspnea. No orthopnea. No lightheadedness or dizziness. No syncopal episodes. Abdominal: No abdominal pain. No nausea, vomiting. No diarrhea. No const ipation. No bloody or tarry stools.. No loss of appetite. Genitourinary: No dysuria, increased frequency, urgency. No urinary retention. Musculoskeletal: No myalgias. Noted muscle weakness, possible gait dysfunction, no frequent falls. No back pain. No neck pain. Integumentary: No wounds, no lesions. No rash or pruritus. No unusual bruising. No change in hair or nails. Neurologic: Reported aphasia. No facial droop. Improved change in mentation. No head injury. No headache. No paralysis. No paresthesia. Psychiatric: No depression. No anxiety. No mood swings. Endocrine: No abnormal blood sugars. No weight change. PHYSICAL EXAMINATION Gen: This is a 75-year-old obese occasion male. He is resting in bed and appears to be comfortable at rest. HEENT: Head is atraumatic, normocephalic. Pupils equal, round. Sclerae is anicteric. NECK: Supple. No JVD. No lymphadenopathy. No thyromegaly. LUNGS: Decreased breath sounds at the bases. No crackles, no wheezes. No intercostal retractions. HEART: First heart sound is depressed, second heart sound is normal, there is systolic ejection murmur 2/6 located in the left sternal border. environmental monitoring specialist sinus rhythm. ABDOMEN: Soft. Bowel sounds are present. No masses. No tenderness. EXTREMITIES: No pedal edema. No calf tenderness. Dorsalis pedis +2 bilaterally. NEUROLOGICAL: Patient is awake, alert and oriented to person and place, able to answer questions, generalized weakness. ASSESSMENT AND PLAN 1. Metabolic encephalopathy possible CVA. Consult with neurology appreciated, MRI of the brain, consult with PT, OT, speech therapy. Continue aspirin 325 mg daily, atorvastatin 10 mg Thursday. 2. End-stage renal disease on hemodialysis. Consult with nephrology. 3. Hypertension, hypertensive cardiovascular disease. Continue felodipine 10 mg Thursday and Thursday, Lopressor, Imdur 4. Hyperlipidemia. Continue atorvastatin. 5. History of coronary artery disease status post PCI. Continue Imdur 30 mg daily, aspirin, Lipitor, continue Lopressor 100 mg at bedtime. 6. Chronic diastolic heart failure, stable without exacerbation. Continue Demadex 20 mg daily, Lopressor, Renvela. 7. Moderate intermittent asthma, stable. Continue Ventolin inhaler 2 puffs 4 times daily, qvar or equivalent. 8. Benign prostatic hypertrophy. Monitor for urinary retention. 9. Gastroesophageal reflux disease. Continue PPI. 10. Benign prostatic hypertrophy. 11. DVT prophylaxis. Heparin subcu. 12. COVID-19 testing negative. Patient has been hospitalized during a pandemic. DISCHARGE PLAN To be determined. PT and OT consults Impression and plan of care have been directed as dictated by the signing physician. Missy Manzano nurse practitioner acting as scribe for signing physician. Objective - Vital Signs Vital signs: Vital Signs Temp 98.4 F 06/14/21 04:00 Pulse 62 06/14/21 04:00 Resp 18 06/14/21 04:00 BP 136/65 06/14/21 04:00 Pulse Ox 93 L 06/14/21 04:00 Intake & Output 06/13/21 06/14/21 06/14/21 18:59 06:59 18:59 Output Total 480 Balance -480 Weight 109.5 kg Output: Urine 480 Hemodialysis 0 Other: # Voids 2 - Labs CBC & Chem 7: 06/13/21 04:58 06/13/21 04:58
[2021-06-14 11:08] LABS: Chol/HDL Ratio 2.58 Ratio; HDL Cholesterol 32.9 mg/dL (40.00-60.00); LDL Cholesterol,Calculated 32.5 mg/dL (0.0-131.0); Triglycerides 97.9 mg/dL (0.00-149.00); VLDL Calculation 19.58 mg/dL (5.00-40.00)
--- NOTE | 2021-06-14 12:09 | PN ---
PROGRESS NOTE Patient is seen for followup for end-stage renal disease. He was admitted to the hospital with mental status changes, which seem to have improved to some degree, but patient still remains slow and lethargic. No evidence of any major abnormality noted on EEG except for metabolic encephalopathy, diffuse structural brain abnormality. No obvious infection noted. On examination today, blood pressure 159/67, heart rate 68 per minute. He is afebrile. EXAMINATION OF THE HEART: S1 and S2. EXAMINATION OF LUNGS: Bilateral breath sounds are heard. Abdomen is soft, obese, non-tender. Examination of lower extremities shows no significant edema. Labs show sodium of 133 on 06/13 with potassium of 4.6, hemoglobin 11.4 g/dL. ASSESSMENT: 1. End-stage renal disease, on hemodialysis on a Thursday, , Thursday schedule via left arm AV fistula. 2. Mental status changes, mostly metabolic encephalopathy, scheduled for MRI. EEG showed diffuse changes. 3. Hypertension, controlled. 4. Lactic acidosis, status post IV fluids, currently improved. 5. Chronic kidney disease mineral bone disorder. PLAN: Hemodialysis in a.m. with goal UF 1 to 1.5 L as tolerated. Agree with discontinuation of IV fluids. Continue phosphate binders. MMODL / IJN: [id number] /
[2021-06-14] MEDS: ATORVASTATIN 10 MG TAB PO SCH (12:14)
[2021-06-14] MEDS: amLODIPine 10 MG TAB PO SCH (12:14)
[2021-06-14] MEDS: MONTELUKAST 10 MG TAB PO SCH (20:32)
[2021-06-14] MEDS: ISOSORBIDE MONONITRATE ER 30 MG TAB.ER.24H PO SCH (20:32)
[2021-06-14] MEDS: LORATADINE 10 MG TAB PO SCH (20:32)
[2021-06-14] MEDS: METOPROLOL TARTRATE 50 MG TAB PO SCH (20:32)
--- NOTE | 2021-06-14 21:52 | P.PN ---
Subjective Progress Note Date: 06/14/21 Patient was seen for a follow-up. Patient is much alert and awake. He has more better affect. Patient offers no complaints. Patient is laying comfortably in the bed. Telemetry monitoring so far showing sinus rhythm, first-degree AV block, bundle branch block, PACs and PVCs. Objective - Vital Signs Vital signs: Vital Signs Temp 97.5 F L 06/14/21 12:10 Pulse 73 06/14/21 16:00 Resp 16 06/14/21 16:00 BP 125/64 06/14/21 16:00 Pulse Ox 95 06/14/21 16:00 Intake & Output 06/13/21 06/14/21 06/14/21 18:59 06:59 18:59 Intake Total 300 Output Total 480 0 Balance -480 300 Weight 109.5 kg Intake: Oral 300 Output: Urine 480 0 Stool 0 Hemodialysis 0 Other: # Voids 2 0 # Bowel Movements 0 - Exam On examination patient is alert and awake. Patient cannot name objects. He had paraphasic errors, saying "Pacin" for a pen. He could not name the lasts on a straw. Patient can repeat very well. He could not tell the current month or the year. Patient comprehends fairly well. When I asked questions, patient sta funmilayo a phrase "I'm thinking about it". On cranial examination pupils are round and reacting to light, visual sanchez appears full. Extraocular muscles are intact. Face is symmetric. Tongue protrudes to the midline. On muscle strength testing the strength is normal in the upper limbs. In the lower limbs his hip flexion is 4+, ankle dorsiflexion is normal. Reflexes are symmetric. Sensations difficult to assess. - Labs CBC & Chem 7: 06/13/21 04:58 06/13/21 04:58 Labs: Abnormal Lab Results - Last 24 Hours (Table) 06/14/21 Range/Units 06:53 HDL Cholesterol 32.90 L (40.00-60.00) mg/dL Assessment and Plan Assessment: * Acute altered mental status, with expressive aphasia, probably due to acute ischemic stroke with expressive aphasia. Patient was not a candidate for TPA as his last known well was about 6 hours prior to arrival. Metabolic encephalopathy also in the differential. * Hypertension * Hyperlipidemia * Diabetes * ESRD on hemodialysis * CAD * Ankylosing spondylitis Plan: * MRI of the brain and MRA of head was attempted, but patient could not be positioned in the MRI scanner because of his ankylosing spondylitis. We will perform stat computed tomography scan of the head. We will try to obtain CTA of head and neck if cleared by nephrology. * EEG was abnormal due to background slowing of moderate to severe degree. This is suggestive of generalized cerebral dysfunction as can be seen with toxic metabolic encephalopathy or due to diffuse structural brain abnormality. No epileptiform activity was seen. * Carotid Doppler showed no significant stenosis. Antegrade flow in both vertebral arteries. * 2-D echo showed normal left-ventricular size. Mild concentric LVH. EF is low normal between 50-55%. Left atrial size is normal. * Patient's hemoglobin A1c 5.7 on 10/22/2020. * Lipid panel with cholesterol 112, LDL 49, HDL 35 and triglycerides 140 on 02/01/2021. * We will check B12, folate. * Continue aspirin 325 mg daily for now. Add Plavix 75 mg daily. (Patient was on aspirin 81 mg daily at home). * Dr. Islas Will resume neurology service in the morning. I spoke to patient's on the phone. She states that patient was completely normal prior to this event. He used to speak completely normally. He has mild memory difficulties, particularly on the days of hemodialysis, but nothing out of ordinary. She states the night prior to admission, they were watching TV, when she went to bed at around 10 PM. He stayed in the recliner, continued to watch TV. At 3 AM she heard a thump-she went in and found him on the floor with the recliner also turned over. She tried to talk to him and he would just mumble, could not speak at all. She called the ambulance. Patient has history of ESRD for last 3-1/2 years that he is on hemodialysis.
[2021-06-14] MEDS: CLOPIDOGREL 75 MG TAB PO SCH (22:14)
[2021-06-14] MEDS ORDERED: CLOPIDOGREL 75 MG TAB PO STA (22:14)
--- NOTE | 2021-06-14 22:36 | CT ---
EXAMINATION TYPE: CT brain wo con DATE OF EXAM: 06/14/2021 COMPARISON: Yesterday HISTORY: CVA. Confusion. CT DLP: 3641.8 mGycm Automated exposure control for dose reduction was used. Images of the brain obtained without contrast. There is somewhat rounded area of hypodensity in the left posterior frontal lobe measuring 4 cm in di ameter consistent with acute infarct. There is no mass effect nor midline shift. There is no evidence of intracranial hemorrhage. The calvarium is intact. Exam limited slightly by motion. Skull base myra ears intact. IMPRESSION: Hypodensity left posterior frontal lobe consistent with acute infarct and is a change compared to CT scan yesterday. No hemorrhage.
--- NOTE | 2021-06-14 22:50 | CT ---
EXAMINATION TYPE: CT angio head neck DATE OF EXAM: 06/14/2021 COMPARISON: HISTORY: CVA. Confusion. CT DLP: 465.9 mGycm Automated exposure control for dose reduction was used. CONTRAST: Performed with IV Contrast, patient injected with 65 mL of Isovue 370. Images obtained from the aortic arch to the vertex of the brain with IV contrast. There are 3-D post processed images. There is normal branching pattern of the great vessels on the aortic arch. There is bilateral arteria l flow in the subclavian arteries. There is bilateral arterial flow in the vertebral arteries. Right vertebral artery is larger than the left. There is arterial flow in the common internal and external carotid arteries bilaterally. I see no evidence of hemodynamic stenosis at the carotid artery bifurca tions. There is mild plaque formation and less than 15% narrowing. There is arterial flow in the vertebrobasilar artery system. There is arterial flow in the anterior m iddle and posterior cerebral arteries bilaterally. There is no mass effect. I see no evidence of intr acranial aneurysm or neovascularity. There is brain hypodensity in the left posterior frontal lobe me asuring 4 cm. There is normal enhancement of the venous sinuses. I see no evidence of intracranial hemodynamic sten osis. IMPRESSION: No intracranial angiographic abnormality identified. No significant angiographic abnormality of the n luann.
[2021-06-15] MEDS: PANTOPRAZOLE 40 MG TABLET PO SCH (06:34)
[2021-06-15] MEDS: ALBUTEROL HFA INHALER INHALATION SCH ×4 (08:28→21:57)
[2021-06-15] MEDS: FLUTICASONE 110 MCG INHALER INHALATION SCH ×2 (08:29→21:56)
--- NOTE | 2021-06-15 09:06 | P.PN ---
Subjective Patient is seen in follow-up for end-stage renal disease. He is maintained on hemodialysis on Thursday schedule. Tolerating dialysis well. Currently awake and alert. No chest pain or shortness of breath. Vital signs are stable. General: The patient appeared well nourished and normally developed. HEENT: Head exam is unremarkable. LUNGS: Breath sounds decreased. HEART: Rate and Rhythm are regular. ABDOMEN: Soft, no distention. EXTREMITITES: No edema. Objective - Vital Signs Vital signs: Vital Signs Temp 98.7 F 06/15/21 03:26 Pulse 68 06/15/21 03:26 Resp 18 06/15/21 03:26 BP 129/71 06/15/21 03:26 Pulse Ox 93 L 06/15/21 03:26 Intake & Output 06/14/21 06/15/21 06/15/21 18:59 06:59 18:59 Intake Total 300 Output Total 0 0 1500 Balance 300 0 -1500 Weight 109.5 kg Intake: Oral 300 Output: Urine 0 Stool 0 0 Hemodialysis 1500 Other: Voiding Method Diaper Incontinent # Voids 0 1 # Bowel Movements 0 - Labs CBC & Chem 7: 06/13/21 04:58 06/13/21 04:58 Labs: Abnormal Lab Results - Last 24 Hours (Table) 06/14/21 Range/Units 06:53 HDL Cholesterol 32.90 L (40.00-60.00) mg/dL Assessment and Plan Plan: Assessment: 1. End-stage renal disease maintained on hemodialysis on Thursday schedule. 2. Altered mental status with concern for acute ischemic stroke. Neurology following. CTA of the head and neck negative. 3. Hypertension with chronic kidney disease. Stable. 4. Chronic kidney disease mineral bone disease maintained on Renvela. Plan: Currently seen while undergoing hemodialysis. Next treatment on Thursday.
[2021-06-15] MEDS: FINASTERIDE 5 MG TAB PO SCH (09:14)
[2021-06-15] MEDS: SEVELAMER 800 MG TAB PO SCH ×2 (09:14→21:03)
[2021-06-15] MEDS: allopurinoL 100 MG TAB PO SCH (09:14)
[2021-06-15] MEDS: ASPIRIN 325 MG TAB PO SCH (09:14)
[2021-06-15] MEDS: CLOPIDOGREL 75 MG TAB PO SCH (09:14)
[2021-06-15] MEDS: DOCUSATE 100 MG CAP PO SCH ×2 (09:15→21:03)
[2021-06-15] MEDS: HEPARIN SODIUM,PORCINE/PF 5,000 UNIT/0.5 ML SYRINGE SQ SCH ×2 (09:15→21:56)
[2021-06-15] MEDS: TORSEMIDE 20 MG TAB PO SCH (09:15)
[2021-06-15 09:35] LABS: Albumin 3.3 g/dL (3.5-5.0); Calcium 9.3 mg/dL (8.4-10.2); Potassium 4.3 mmol/L (3.5-5.1); Total Bilirubin 0.6 mg/dL (0.2-1.3); Total Protein 6.7 g/dL (6.3-8.2)
[2021-06-15 09:36] LABS: HCT 29.5 % (39.0-53.0); MCH 32.5 pg (25.0-35.0); MCHC 33.6 g/dL (31.0-37.0); MCV 96.6 fL (80.0-100.0); Platelet Count 218 k/uL (150-450); RBC 3.05 m/uL (4.30-5.90); RDW 13.6 % (11.5-15.5); WBC 12.9 k/uL (3.8-10.6)
[2021-06-15 09:53] LABS: HGB 9.9 gm/dL (13.0-17.5)
--- NOTE | 2021-06-15 11:31 | P.PN ---
Subjective Progress Note Date: 06/15/21 Progress Note Date: 06/15/21 HISTORY OF PRESENT ILLNESS This is a 74-year-old male one my patient with a previous medical history significant for hypertension and hypertensive cardiovascular disease, hyperlipidemia, end-stage renal disease on hemodialysis Thursday and Thursday, history of asthma/COPD, history of CAD post-PCI, history of ankylosing spondylitis, obstructive sleep apnea on a CPAP. Patient was last hospitalized in March which time he was treated for recurrent falls, gait dysfunction and memory loss with recent right lower lobe pneumonia, discharged to [facility] for subacute rehab. Patient's heard a thump downstairs around 3 AM and patient was found on the floor, couldn't get up. Patient states he was unable to move. He apparently was unable to speak at the time or follow directions. He was brought in by EMS to [facility] emergency center. He was afebrile, initial heart rate 146, blood pressure 88/55, pulse ox 95%. EKG was a sinus rhythm at 63 bpm. CAT scan of the brain showed no acute intracranial abnormality. Cerebral atrophy. CT angiogram of the head and neck were ordered but patient was unable to relax for neck films and was given Ativan. WBC 13.6, hemoglobin 1.4, platelet count 244. INR 1.0. Urinalysis negative for infection. Troponin negative. ProBNP is 6540. Lactic acid 2.4 and repeat 2.0. Phosphorus 4.9, magnesium 1.7.Coronavirus PCR not detected Chest x-ray shows correlate for chronic interstitial lung disease. Superimposed interstitial pneumonitis or venous congestion not excluded. Patient is status post 1 L of IV fluids, Zofran, morphine and IV Ativan 2. Patient is seen today in the emergency center waiting for a bed on the cardiac stepdown unit, consult with nephrology and neurology. 06/14: Patient is seen today in follow-up on the cardiac stepdown unit. Patient is awake and alert. He denies having any pain. He is scheduled for MRI today and Ativan will be provided prior to procedure. He underwent hemodialysis yesterday. Patient has been afebrile, heart rate in the 60s, blood pressure 159/67, pulse ox 96% on room air. Repeat blood work ordered for tomorrow. PT, OT, speech therapies are ordered. Patient has been seen by neurology and MRI is scheduled for today and EEG was completed and revealed toxic metabolic encephalopathy or due to diffuse structural brain abnormality. No epileptiform activity. Carotid ultrasound showed no significant hemodynamic stenosis. Echocardiogram reveals EF of 50-55%, mild concentric left hypertrophy, technically suboptimal views. 06/15: Patient is laying down in bed in no apparent distress, he just finished dialysis today appears extremely weak, he is moving all his extremities, he denies any chest pain or shortness breath, patient is not eating much he appears to be generally weak, he was seen in consultation by physical therapy we'll arrange for the patient to be going to subacute recommendation if necessary, attempted MRI of the brain the patient was not able to complete due to his a nkylosing spondylitis, however. A computed tomography scan of the brain did show evidence of hypodensity in the posterior aspect of the right frontal lobe suggestive of acute infarct that is new from the prior study. patient was started on Plavix 75 mg along with ASA 325 mg orally daily, patient developed to have atrial fibrillation this morning and he will be taken off ASA and we will continue with Plavix and add Xarelto 15 mg po daily and we will consult cardiology. REVIEW OF SYSTEMS Constitutional: No fever, no chills, no night sweats. No weight change. Gener alized weakness, and fatigue no lethargy. No daytime sleepiness. HEENT: No headache. No blurred vision or double vision, no loss of vision. No loss of Hearing, no ringing in the ears, no dizziness. No nasal drainage or congestion. No epistaxis. No sore throat. Lungs: No shortness of breath, cough, no sputum production. No wheezing. Cardiovascular: No chest pain, no lower extremity edema. No palpitations. No paroxysmal nocturnal dyspnea. No orthopnea. No lightheadedness or dizziness. No syncopal episodes. Abdominal: No abdominal pain. No nausea, vomiting. No diarrhea. No constipa tion. No bloody or tarry stools.. No loss of appetite. Genitourinary: No dysuria, increased frequency, urgency. No urinary retention. Musculoskeletal: No myalgias. Noted muscle weakness, possible gait dysfunction, no frequent falls. No back pain. No neck pain. Integumentary: No wounds, no lesions. No rash or pruritus. No unusual bruising. No change in hair or nails. Neurologic: Reported aphasia. No facial droop. Improved change in mentation. No head injury. No headache. No paralysis. No paresthesia. Psychiatric: No depression. No anxiety. No mood swings. Endocrine: No abnormal blood sugars. No weight change. PHYSICAL EXAMINATION Gen: This is a 75-year-old obese occasion male. He is resting in bed and appears to be comfortable at rest. HEENT: Head is atraumatic, normocephalic. Pupils equal, round. Sclerae is anicteric. NECK: Supple. No JVD. No lymphadenopathy. No thyromegaly. LUNGS: Decreased breath sounds at the bases. No crackles, no wheezes. No intercostal retractions. HEART: First heart sound is depressed, second heart sound is normal, there is systolic ejection murmur 2/6 located in the left sternal border, currently in atrial fibrillation. ABDOMEN: Soft. Bowel sounds are present. No masses. No tenderness. EXTREMITIES: No pedal edema. No calf tenderness. Dorsalis pedis +2 bilaterally. NEUROLOGICAL: Patient is awake, alert and oriented to person and place, able to answer questions, generalized weakness. ASSESSMENT AND PLAN 1. acute ischemic stroke or vascular accident in the posterior aspect of the right frontal lobe. Continue physical therapy evaluation, continue Plavix 75 mg every day, continue Lipitor 10 mg once every day, neurology is following, echocardiogram showed normal ejection fraction 55-60%. And carotid ultrasound did not show evidence of significant stenosis, we'll continue to monitor the patient very closely, continue physical therapy evaluation likely the patient will require subacute rehabilitation. 2. New onset atrial fibrillation with HR 90-120 . increase Metoprolol to 100 mg orally bid, discontinue ASA and add Xarelto 15 mg po daily, Cardiology evaluatio n. 3. End-stage renal disease on hemodialysis. On hemodialysis Thursday and Thursday. 4. Hypertension, hypertensive cardiovascular disease. Continue felodipine 10 mg Thursday and Thursday,we will continue metoprolol 100 mg at bedtime, and we will add Losartan 50 mg orally bid. 5. Hyperlipidemia. Continue atorvastatin 10 mg orally once every day. 6. History of coronary artery disease status post PCI. Continue Imdur 30 mg daily, aspirin, Lipitor, continue Lopressor 100 mg at bedtime. 7. Chronic diastolic heart failure, stable without exacerbation. Continue De madex 20 mg daily, Lopressor. 8. Moderate intermittent asthma, stable. Continue Ventolin inhaler 2 puffs 4 times daily, qvar or equivalent. 9. Benign prostatic hypertrophy. Monitor for urinary retention. 10. Gastroesophageal reflux disease. Continue PPI. 11. Benign prostatic hypertrophy.Stable at this time. 12. DVT prophylaxis. Heparin 5000 units subcutaneously every 12 hours. 13. COVID-19 testing negative. Patient has been hospitalized during a pandemic. 14. Physical therapy evaluation as well as social worker health services consultation for subacute rehabilitation. Objective - Vital Signs Vital signs: Vital Signs Temp 97.8 F 06/15/21 09:20 Pulse 81 06/15/21 09:20 Resp 18 06/15/21 09:20 BP 160/116 06/15/21 09:20 Pulse Ox 99 06/15/21 09:20 Intake & Output 06/14/21 06/15/21 06/15/21 18:59 06:59 18:59 Intake Total 300 Output Total 0 0 1500 Balance 300 0 -1500 Weight 109.5 kg Intake: Oral 300 Output: Urine 0 Stool 0 0 0 Hemodialysis 1500 Other: Voiding Method Diaper Diaper Incontinent Incontinent # Voids 0 1 # Bowel Movements 0 - Labs CBC & Chem 7: 06/15/21 08:24 06/15/21 08:24 Labs: Abnormal Lab Results - Last 24 Hours (Table) 06/14/21 06/15/21 06/15/21 Range/Units 06:53 08:24 08:24 WBC 12.9 H (3.8-10.6) k/uL RBC 3.05 L (4.30-5.90) m/uL Hgb 9.9 L D (13.0-17.5) gm/dL Hct 29.5 L (39.0-53.0) % Chloride 109 H (98-107) mmol/L BUN 31 H (9-20) mg/dL Creatinine 4.47 H (0.66-1.25) mg/dL Glucose 118 H (74-99) mg/dL Albumin 3.3 L (3.5-5.0) g/dL HDL Cholesterol 32.90 L (40.00-60.00) mg/dL
[2021-06-15 13:26] LABS: Folate, Serum >20.00 ng/mL (4.40-31.00)
[2021-06-15] MEDS: METOPROLOL TARTRATE 50 MG TAB PO SCH ×2 (14:06→21:04)
[2021-06-15] MEDS: RIVAROXABAN 15 MG TAB PO SCH (16:54)
--- NOTE | 2021-06-15 17:39 | P.PN ---
Subjective Progress Note Date: 06/15/21 The patient is a 75-year-old male who is seen in neurologic follow-up on June 25, 2021, via telemedicine. The patient's is present at the bedside, at the time of the evaluation. She reports that her has been sleepy today. He often is sleepy following dialysis. He has reportedly been up to the bathroom today, walking with a walker. The patient reportedly had an episode of new-onset atrial fibrillation today and was started on anticoagulation, with Xarelto. Neurology consultation is reviewed. History and physical is reviewed. CT scan a CT angiogram are reviewed. Objective - Vital Signs Vital signs: Vital Signs Temp 97.8 F 06/15/21 12:29 Pulse 110 H 06/15/21 12:29 Resp 16 06/15/21 14:00 BP 122/65 06/15/21 12:29 Pulse Ox 95 06/15/21 12:29 Intake & Output 06/14/21 06/15/21 06/15/21 18:59 06:59 18:59 Intake Total 300 120 Output Total 0 0 1500 Balance 300 0 -1380 Weight 109.5 kg Intake: Oral 300 120 Output: Urine 0 Stool 0 0 0 Hemodialysis 1500 Other: Voiding Method Diaper Diaper Incontinent Incontinent # Voids 0 1 0 # Bowel Movements 0 0 - Exam Gen.: The patient is reclining in the bed. He is well-nourished, he is in no acute distress. HEENT: Head is atraumatic, normocephalic. Fundus not visualized. There is no scleral icterus. Mucous membranes are moist. Neurological examination Mental status: As previously stated, the patient is somewhat sleepy. He is orie nted to his name, date of , 's name. He is not oriented to his age or the current year. The patient is unable to show me his left thumb, on command. He raises both thumbs, eventually but is unable to specifically identify the left thumb. The patient's speech is clear. He is able to name "glasses and pen". Shortly after the mental status examination, the patient reports that he has to go to the bathroom. He is subsequently observed walking to the bathroom, with minimal assistance of the nurses. He uses a walker. His gait is slightly wide- based, but steady. Further discussion was had with patient's regarding test results. - Labs CBC & Chem 7: 06/15/21 08:24 06/15/21 08:24 Labs: Abnormal Lab Results - Last 24 Hours (Table) 06/15/21 06/15/21 Range/Units 08:24 08:24 WBC 12.9 H (3.8-10.6) k/uL RBC 3.05 L (4.30-5.90) m/uL Hgb 9.9 L D (13.0-17.5) gm/dL Hct 29.5 L (39.0-53.0) % Chloride 109 H (98-107) mmol/L BUN 31 H (9-20) mg/dL Creatinine 4.47 H (0.66-1.25) mg/dL Glucose 118 H (74-99) mg/dL Albumin 3.3 L (3.5-5.0) g/dL Assessment and Plan Assessment: 1. Left frontal lobe acute ischemic infarct with expressive and possible receptive aphasia 2. New onset atrial fibrillation 3. End-stage renal disease on hemodialysis 4. Hypertension and hyperlipidemia Plan: 1. Agree with Plavix and Xarelto 2. Physical therapy and occupational therapy evaluations and treatment. 3. Continue high-dose statin 4. Inpatient rehabilitation or subacute rehabilitation placement would be beneficial for this patient Time with Patient: Less than 30 (spent 25 minutes with patient via telemedicine)
[2021-06-15] MEDS: LOSARTAN 50 MG TAB PO SCH (21:03)
[2021-06-15] MEDS: MONTELUKAST 10 MG TAB PO SCH (21:03)
[2021-06-15] MEDS: ISOSORBIDE MONONITRATE ER 30 MG TAB.ER.24H PO SCH (21:03)
[2021-06-15] MEDS: LORATADINE 10 MG TAB PO SCH (21:03)
[2021-06-16] MEDS: PANTOPRAZOLE 40 MG TABLET PO SCH (06:44)
[2021-06-16] MEDS: FLUTICASONE 110 MCG INHALER INHALATION SCH ×2 (08:11→21:08)
[2021-06-16] MEDS: ALBUTEROL HFA INHALER INHALATION SCH ×4 (08:11→21:09)
[2021-06-16] MEDS: METOPROLOL TARTRATE 50 MG TAB PO SCH ×2 (09:07→21:18)
[2021-06-16] MEDS: CLOPIDOGREL 75 MG TAB PO SCH (09:07)
[2021-06-16] MEDS: DOCUSATE 100 MG CAP PO SCH ×2 (09:08→21:19)
[2021-06-16] MEDS: FINASTERIDE 5 MG TAB PO SCH (09:08)
[2021-06-16] MEDS: allopurinoL 100 MG TAB PO SCH (09:08)
[2021-06-16] MEDS: LOSARTAN 50 MG TAB PO SCH ×2 (09:08→21:19)
[2021-06-16] MEDS: TORSEMIDE 20 MG TAB PO SCH (09:09)
[2021-06-16] MEDS: SEVELAMER 800 MG TAB PO SCH ×2 (09:09→21:19)
[2021-06-16 09:45] LABS: Basophils % (A) 0 %; Eosinophils # (A) 0.3 k/uL (0-0.7); Eosinophils % (A) 3 %; HCT 28.8 % (39.0-53.0); HGB 9.6 gm/dL (13.0-17.5); Lymphocytes # (A) 1.5 k/uL (1.0-4.8); Lymphocytes % (A) 17 %; MCH 33.3 pg (25.0-35.0); MCHC 33.4 g/dL (31.0-37.0); MCV 99.6 fL (80.0-100.0); Mean Platelet Volume 7.5; Monocytes # (A) 0.5 k/uL (0-1.0); Monocytes % (A) 5 %; Neutrophils # (A) 6.5 k/uL (1.3-7.7); Neutrophils % (A) 73 %; Platelet Count 182 k/uL (150-450); RBC 2.89 m/uL (4.30-5.90); RDW 13.5 % (11.5-15.5); WBC 8.9 k/uL (3.8-10.6)
[2021-06-16 09:54] LABS: Albumin 2.9 g/dL (3.5-5.0); Calcium 9.2 mg/dL (8.4-10.2); Potassium 4.3 mmol/L (3.5-5.1); Total Bilirubin 0.5 mg/dL (0.2-1.3)
--- NOTE | 2021-06-16 10:04 | P.PN ---
Subjective Patient is seen in follow-up for end-stage renal disease. He is maintained on hemodialysis on Thursday schedule. No problems with dialysis yesterday. Currently awake and alert. No chest pain or shortness of breath. No active complaints. Vital signs are stable. General: The patient appeared well nourished and normally developed. HEENT: Head exam is unremarkable. LUNGS: Breath sounds decreased. HEART: Rate and Rhythm are regular. ABDOMEN: Soft, no distention. EXTREMITITES: No edema. Objective - Vital Signs Vital signs: Vital Signs Temp 98.2 F 06/16/21 09:15 Pulse 80 06/16/21 09:15 Resp 16 06/16/21 09:15 BP 115/66 06/16/21 09:15 Pulse Ox 96 06/16/21 09:15 Intake & Output 06/15/21 06/16/21 06/16/21 18:59 06:59 18:59 Intake Total 220 120 Output Total 1500 0 0 Balance -1280 0 120 Weight 110.9 kg Intake: Oral 220 120 Output: Stool 0 0 0 Hemodialysis 1500 Other: Voiding Method Diaper Diaper Diaper Incontinent Incontinent Incontinent # Voids 0 1 # Bowel Movements 0 - Labs CBC & Chem 7: 06/16/21 08:31 06/16/21 08:31 Labs: Abnormal Lab Results - Last 24 Hours (Table) 06/16/21 06/16/21 Range/Units 08:31 08:31 RBC 2.89 L (4.30-5.90) m/uL Hgb 9.6 L (13.0-17.5) gm/dL Hct 28.8 L (39.0-53.0) % Carbon Dioxide 20 L (22-30) mmol/L BUN 37 H (9-20) mg/dL Creatinine 6.57 H (0.66-1.25) mg/dL Glucose 154 H (74-99) mg/dL Total Protein 6.0 L (6.3-8.2) g/dL Albumin 2.9 L (3.5-5.0) g/dL Assessment and Plan Plan: Assessment: 1. End-stage renal disease maintained on hemodialysis on Thursday schedule. 2. Altered mental status with concern for acute ischemic stroke. Neurology following. CTA of the head and neck negative. 3. Hypertension with chronic kidney disease. Stable. 4. Chronic kidney disease mineral bone disease maintained on Renvela. 5. Anemia chronic kidney disease. Rule out iron deficiency. Plan: Hemodialysis on Thursday. Check iron studies.
--- NOTE | 2021-06-16 12:06 | P.PN ---
Subjective Progress Note Date: 06/16/21 Progress Note Date: 06/15/21 HISTORY OF PRESENT ILLNESS This is a 74-year-old male one my patient with a previous medical history significant for hypertension and hypertensive cardiovascular disease, hyperlipidemia, end-stage renal disease on hemodialysis Thursday and Thursday, history of asthma/COPD, history of CAD post-PCI, history of ankylosing spondylitis, obstructive sleep apnea on a CPAP. Patient was last hospitalized in March which time he was treated for recurrent falls, gait dysfunction and memory loss with recent right lower lobe pneumonia, discharged to [facility] for subacute rehab. Patient's heard a thump downstairs around 3 AM and patient was found on the floor, couldn't get up. Patient states he was unable to move. He apparently was unable to speak at the time or follow directions. He was brought in by EMS to [facility] emergency center. He was afebrile, initial heart rate 146, blood pressure 88/55, pulse ox 95%. EKG was a sinus rhythm at 63 bpm. CAT scan of the brain showed no acute intracranial abnormality. Cerebral atrophy. CT angiogram of the head and neck were ordered but patient was unable to relax for neck films and was given Ativan. WBC 13.6, hemoglobin 1.4, platelet count 244. INR 1.0. Urinalysis negative for infection. Troponin negative. ProBNP is 6540. Lactic acid 2.4 and repeat 2.0. Phosphorus 4.9, magnesium 1.7.Coronavirus PCR not detected Chest x-ray shows correlate for chronic interstitial lung disease. Superimposed interstitial pneumonitis or venous congestion not excluded. Patient is status post 1 L of IV fluids, Zofran, morphine and IV Ativan 2. Patient is seen today in the emergency center waiting for a bed on the cardiac stepdown unit, consult with nephrology and neurology. 06/14: Patient is seen today in follow-up on the cardiac stepdown unit. Patient is awake and alert. He denies having any pain. He is scheduled for MRI today and Ativan will be provided prior to procedure. He underwent hemodialysis yesterday. Patient has been afebrile, heart rate in the 60s, blood pressure 159/67, pulse ox 96% on room air. Repeat blood work ordered for tomorrow. PT, OT, speech therapies are ordered. Patient has been seen by neurology and MRI is scheduled for today and EEG was completed and revealed toxic metabolic encephalopathy or due to diffuse structural brain abnormality. No epileptiform activity. Carotid ultrasound showed no significant hemodynamic stenosis. Echocardiogram reveals EF of 50-55%, mild concentric left hypertrophy, technically suboptimal views. 06/15: Patient is laying down in bed in no apparent distress, he just finished dialysis today appears extremely weak, he is moving all his extremities, he denies any chest pain or shortness breath, patient is not eating much he appears to be generally weak, he was seen in consultation by physical therapy we'll arrange for the patient to be going to subacute recommendation if necessary, attempted MRI of the brain the patient was not able to complete due to his a nkylosing spondylitis, however. A computed tomography scan of the brain did show evidence of hypodensity in the posterior aspect of the right frontal lobe suggestive of acute infarct that is new from the prior study. patient was started on Plavix 75 mg along with ASA 325 mg orally daily, patient developed to have atrial fibrillation this morning and he will be taken off ASA and we will continue with Plavix and add Xarelto 15 mg po daily and we will consult cardiology. 06/16: Patient is laying down in bed in no apparent distress, he denies any chest pain or any shortness breath he continues to be somewhat weak, physical therapy is following the patient, patient continues to be in atrial fibrillation with a controlled heart rate, increase his metoprolol to 100 mg orally twice every day was started yesterday on Xarelto 15 mg every day along with Plavix and he was taken off aspirin, will patient likely be transferred to [facility] tomorrow morning. REVIEW OF SYSTEMS Constitutional: No fever, no chills, no night sweats. No weight change. Generalized weakness, and fatigue no lethargy. No daytime sleepiness. HEENT: No headache. No blurred vision or double vision, no loss of vision. No loss of Hearing, no ringing in the ears, no dizziness. No nasal drainage or congestion. No epistaxis. No sore throat. Lungs: No shortness of breath, cough, no sputum production. No wheezing. Cardiovascular: No chest pain, no lower extremity edema. No palpitations. No paroxysmal nocturnal dyspnea. No orthopnea. No lightheadedness or dizziness. No syncopal episodes. Abdominal: No abdominal pain. No nausea, vomiting. No diarrhea. No constipation. No bloody or tarry stools.. No loss of appetite. Genitourinary: No dysuria, increased frequency, urgency. No urinary retention. Musculoskeletal: No myalgias. Noted muscle weakness, possible gait dysfunction, no frequent falls. No back pain. No neck pain. Integumentary: No wounds, no lesions. No rash or pruritus. No unusual bruising. No change in hair or nails. Neurologic: Reported aphasia. No facial droop. Improved change in mentation. No head injury. No headache. No paralysis. No paresthesia. Psychiatric: No depression. No anxiety. No mood swings. Endocrine: No abnormal blood sugars. No weight change. PHYSICAL EXAMINATION Gen: This is a 75-year-old obese occasion male. He is resting in bed and appears to be comfortable at rest. HEENT: Head is atraumatic, normocephalic. Pupils equal, round. Sclerae is anicteric. NECK: Supple. No JVD. No lymphadenopathy. No thyromegaly. LUNGS: Decreased breath sounds at the bases. No crackles, no wheezes. No inte rcostal retractions. HEART: First heart sound is depressed, second heart sound is normal, there is s ystolic ejection murmur 2/6 located in the left sternal border, currently in atrial fibrillation. ABDOMEN: Soft. Bowel sounds are present. No masses. No tenderness. EXTREMITIES: No pedal edema. No calf tenderness. Dorsalis pedis +2 bilaterally. NEUROLOGICAL: Patient is awake, alert and oriented to person and place, able to answer questions, generalized weakness. ASSESSMENT AND PLAN 1. acute ischemic stroke or vascular accident in the posterior aspect of the right frontal lobe. Continue physical therapy evaluation, continue Plavix 75 mg every day, continue Lipitor 10 mg once every day, neurology is following, echocardiogram showed normal ejection fraction 55-60%. And carotid ultrasound did not show evidence of significant stenosis, we'll continue to monitor the patient very closely, continue physical therapy evaluation likely the patient will require subacute rehabilitation. 2. New onset atrial fibrillation with HR 77 , continue patient on metoprolol 100 mg orally twice every day, and Xarelto 15 mg orally once every day. 3. End-stage renal disease on hemodialysis. On hemodialysis Thursday and Thursday. 4. Hypertension, hypertensive cardiovascular disease. Continue felodipine 10 mg Thursday and Thursday,we will continue metoprolol 100 mg at bedtime, and we will add Losartan 50 mg orally bid. 5. Hyperlipidemia. Continue atorvastatin 10 mg orally once every day. 6. History of coronary artery disease status post PCI. Continue Imdur 30 mg daily, aspirin, Lipitor, continue Lopressor 100 mg at bedtime. 7. Chronic diastolic heart failure, stable without exacerbation. Continue Demadex 20 mg daily, Lopressor. 8. Moderate intermittent asthma, stable. Continue Ventolin inhaler 2 puffs 4 times daily, qvar or equivalent. 9. Benign prostatic hypertrophy. Monitor for urinary retention. 10. Gastroesophageal reflux disease. Continue PPI. 11. Benign prostatic hypertrophy.Stable at this time. 12. DVT prophylaxis. Heparin 5000 units subcutaneously every 12 hours. 13. COVID-19 testing negative. Patient has been hospitalized during a pandemic. 14. Physical therapy evaluation as well as social group worker consultation for subacute rehabilitation. 15. [place] tomorrow morning. Objective - Vital Signs Vital signs: Vital Signs Temp 98.2 F 06/16/21 09:15 Pulse 80 06/16/21 09:15 Resp 16 06/16/21 09:15 BP 115/66 06/16/21 09:15 Pulse Ox 96 06/16/21 09:15 Intake & Output 06/15/21 06/16/21 06/16/21 18:59 06:59 18:59 Intake Total 220 120 Output Total 1500 0 0 Balance -1280 0 120 Weight 110.9 kg Intake: Oral 220 120 Output: Stool 0 0 0 Hemodialysis 1500 Other: Voiding Method Diaper Diaper Diaper Incontinent Incontinent Incontinent # Voids 0 1 # Bowel Movements 0 - Labs CBC & Chem 7: 06/16/21 08:31 06/16/21 08:31 Labs: Abnormal Lab Results - Last 24 Hours (Table) 06/16/21 06/16/21 Range/Units 08:31 08:31 RBC 2.89 L (4.30-5.90) m/uL Hgb 9.6 L (13.0-17.5) gm/dL Hct 28.8 L (39.0-53.0) % Carbon Dioxide 20 L (22-30) mmol/L BUN 37 H (9-20) mg/dL Creatinine 6.57 H (0.66-1.25) mg/dL Glucose 154 H (74-99) mg/dL Total Protein 6.0 L (6.3-8.2) g/dL Albumin 2.9 L (3.5-5.0) g/dL
[2021-06-16] MEDS: amLODIPine 10 MG TAB PO SCH (12:37)
--- NOTE | 2021-06-16 14:54 | P.CRDCN ---
History of Present Illness Consult date: 06/16/21 History of present illness: The patient is a 75-year-old male with multiple comorbid conditions including end-stage renal disease on dialysis and coronary artery disease following with Dr. Kurtz in the office, who is currently admitted with an acute CVA. Cardiology was consulted for new onset of atrial fibrillation. It was noted on telemetry that the patient developed atrial fibrillation on June 15. He was asymptomatic during the episode and continues to deny any cardiac symptoms. No chest pain or chest pressure. No palpitations, dizziness, or lightheadedness. The patient appears to be currently bed bound and does admit to having weakness. DIAGNOSTICS: Echocardiogram shows EF of 50-55% with poor visualization of valves Telemetry readings currently shows sinus rhythm, however the patient had paroxysms of atrial fibrillation overnight Vital signs 115/66, SpO2 96% on room air, pulse 80, respiratory rate 16, temp 98.2F Laboratory data: WBC 8.9, hemoglobin 9.6, platelet 182, sodium 137, potassium 4.3, BUN 37, creatinine 6.57, AST 23, ALT 13, LDL 32, triglycerides 97, TSH 1.8 PAST MEDICAL HISTORY: End-stage renal disease on hemodialysis, dyslipidemia, COPD, coronary artery disease, obstructive sleep apnea, obesity REVIEW OF SYSTEMS: No fever or chills. No cough or expectoration. No diaphoresis. Patient denies headache, dizziness, blurred vision, double vision. Patient denies any stomach discomfort. No nausea, vomiting. No hematochezia. No hematemesis. Denies any black stools or blood in his stools. Denies dysuria or hematuria. Positive muscle weakness. No chest pain or chest pressure. No palpitations. No dizziness or lightheadedness. PHYSICAL EXAMINATION: This is a 75-year-old obese male in no apparent distress at the time of my examination. HEENT: Head is atraumatic, normocephalic. Pupils are equal, round. Sclerae anicteric. Conjunctivae are clear. Mucous membranes of the mouth are moist. Neck is supple. There is no jugular venous distention. No carotid bruit is heard. CHEST EXAMINATION: Lungs are diminished to auscultation. No chest wall tenderness is noted on palpation or with deep breathing. HEART EXAMINATION: Heart regular rate and rhythm. S1, S2 heard. Systolic murmur. ABDOMEN: Soft, nontender. Bowel sounds are heard. No organomegaly noted. EXTREMITIES: 2+ peripheral pulses with no evidence of peripheral edema and no calf tenderness noted. NEUROLOGIC EXAMINATION: Patient is awake, alert and oriented x3. FINAL ASSESSMENT AND PLAN: Acute CVA, left posterior frontal lobe New onset A. fib, continue anticoagulation History of CAD Hypertension Sleep apnea PLAN: Agree with increasing beta crow dose to 100 mg twice daily Agree with novel anticoagulation Continue to monitor for episodes of RVR via telemetry Further management of atrial fibrillation will be discussed outpatient with primary pearl technician, Dr. Kurtz The patient has been seen and evaluated. Plan of care has been reviewed and agreed upon by Dr Yi. Past Medical History Past Medical History: Asthma, Coronary Artery Disease (CAD), Cancer, Heart Failure, COPD, GERD/Reflux, Hearing Disorder / Deafness, Hyperlipidemia, Hypertension, Osteoarthritis (OA), Prostate Disorder, Renal Disease, Sleep Apnea/CPAP/BIPAP Additional Past Medical History / Comment(s): ESRD with hemodialysis on //Thu, anemia, BPH, bronchitis, chronic low back pain, ankylosing spondylosi s, gout in ankles in past, concepcion's esophagus, colon polyp, hemorrhoids, behind L ear basal cell skin cancer with removal, L hand squamous cell skin cancer removal, JF with Bipap, bilateral tinnitis, CHF per 2017 medical record but pt does not recall. History of Any Multi-Drug Resistant Organisms: None Reported Past Surgical History: Appendectomy, Cholecystectomy, Heart Catheterization, Heart Catheterization With Stent, Hernia Repair Additional Past Surgical History / Comment(s): Fistula L arm, EGDs, colonoscopies, abdominal hernia repair, ivette fundoplication, ruptured gallbladder with christelle/appy and piece of bowel removed, hemorrhoidectomy, behind L ear lesion removed and another from L hand, bilateral cataract removals/lens implants. Past Anesthesia/Blood Transfusion Reactions: No Reported Reaction Additional Past Anesthesia/Blood Transfusion Reaction / Comment(s): . Date of Last Stent Placement:: 2003 Past Psychological History: No Psychological Hx Reported Smoking Status: Never smoker Past Alcohol Use History: None Reported Past Drug Use History: None Reported - Past Family History Mother Family Medical History: Cancer Additional Family Medical History / Comment(s): Mother at age 72 from BREAST CANCER Father Family Medical History: Myocardial Infarction ([place]) Additional Family Medical History / Comment(s): Father of a [place] at the age of 48 yrs. Sister(s) Family Medical History: Diabetes Mellitus Additional Family Medical History / Comment(s): Patient has one sister. Patient's son have any brothers. Patient has 2 children with no major medical problems. Medications and Allergies Home Medications Medication Instructions Recorded Confirmed Type Atorvastatin Calcium [Lipitor] 10 mg PO MOWEFR 11/11/14 06/13/21 History Dutasteride [Avodart] 0.5 mg PO DAILY 11/11/14 06/13/21 History Felodipine [Felodipine ER] 10 mg PO SUMOWEFR 11/11/14 06/13/21 History Montelukast [Singulair] 10 mg PO HS 11/11/14 06/13/21 History Beclomethasone Dipropionate [Qvar 2 puff INHALATION RT-BID 11/21/15 06/13/21 History 80 mcg/puff] Ergocalciferol [Vitamin D2 50,000 unit PO WE 11/21/15 06/13/21 History (DRISDOL)] Isosorbide Mononitrate ER [Imdur] 30 mg PO HS 11/21/15 06/13/21 History Torsemide [Demadex] 20 mg PO DAILY 11/21/15 06/13/21 History Febuxostat [Uloric] 80 mg PO DAILY 10/22/16 06/13/21 History Lansoprazole 30 mg PO DAILY 10/22/16 06/13/21 History Metoclopramide [Reglan] 5 mg PO TID PRN 08/27/17 06/13/21 History Metoprolol Tartrate [Lopressor] 100 mg PO HS 11/03/19 06/13/21 History Sevelamer [Renvela] 800 mg PO BID 11/03/19 06/13/21 History Albuterol Inhaler [Ventolin Hfa 2 puff INHALATION RT-QID 02/11/20 06/13/21 History Inhaler] Omalizumab [Xolair] 150 mg SQ Q28D 02/13/20 06/13/21 History Aspirin [Adult Low Dose Aspirin EC] 81 mg PO DAILY 03/17/20 06/13/21 History Docusate Sodium [Dok] 100 mg PO BID 03/17/20 06/13/21 History Loratadine 10 mg PO HS 03/17/20 06/13/21 History Lidocaine-Prilocaine Cream [Emla 1 applic TOPICAL DIRECTED 06/13/21 06/13/21 History Cream 2.5%/2.5%] Nitroglycerin Sl Tabs [Nitrostat] 0.4 mg SUBLINGUAL Q5M PRN 06/13/21 06/13/21 History Renavite 1 tab PO HS 06/13/21 06/13/21 History traMADol HCL/ACETAMINOPHEN 1 tab PO BID 06/13/21 06/13/21 History [Ultracet 37.5-325] Allergies Allergy/AdvReac Type Severity Reaction Status Date / Time diphenhydramine HCl Allergy Confusion Verified 06/13/21 07:37 [From Benadryl] Physical Exam Vitals: Vital Signs Temp Pulse Resp BP Pulse Ox 06/16/21 12:00 98.2 F 79 16 112/79 98 06/16/21 09:15 98.2 F 80 16 115/66 96 06/16/21 03:32 98.8 F 77 16 127/64 96 06/16/21 01:20 16 06/15/21 23:28 98.3 F 76 16 119/65 96 06/15/21 20:00 99.7 F H 91 18 156/65 95 06/15/21 16:00 97.9 F 84 16 138/63 96 Intake and Output 06/15/21 06/16/21 06/16/21 22:59 06:59 14:59 Intake Total 100 320 Output Total 0 0 0 Balance 100 0 320 Intake: Oral 100 320 Output: Stool 0 0 0 Other: Voiding Method Diaper Diaper Diaper Incontinent Incontinent Incontinent # Voids 1 1 0 Weight 110.9 kg Results 06/16/21 08:31 06/16/21 08:31 Cardiac Enzymes 06/16/21 Range/Units 08:31 AST 23 (17-59) U/L CBC 06/16/21 Range/Units 08:31 WBC 8.9 (3.8-10.6) k/uL RBC 2.89 L (4.30-5.90) m/uL Hgb 9.6 L (13.0-17.5) gm/dL Hct 28.8 L (39.0-53.0) % Plt Count 182 (150-450) k/uL Comprehensive Metabolic Panel 06/16/21 Range/Units 08:31 Sodium 137 (137-145) mmol/L Potassium 4.3 (3.5-5.1) mmol/L Chloride 105 (98-107) mmol/L Carbon Dioxide 20 L (22-30) mmol/L BUN 37 H (9-20) mg/dL Creatinine 6.57 H (0.66-1.25) mg/dL Glucose 154 H (74-99) mg/dL Calcium 9.2 (8.4-10.2) mg/dL AST 23 (17-59) U/L ALT 13 (4-49) U/L Alkaline Phosphatase 80 (38-126) U/L Total Protein 6.0 L (6.3-8.2) g/dL Albumin 2.9 L (3.5-5.0) g/dL Current Medications Generic Name Dose Route Start Last Admin Trade Name Freq PRN Reason Stop Dose Admin Albuterol Sulfate 2 puff 06/13/21 12:00 06/16/21 12:00 Albuterol Hfa Inhaler INHALATION 2 puff RT-QID SHANTAL Administration Allopurinol 400 mg 06/14/21 09:00 06/16/21 09:08 Allopurinol 100 Mg Tab PO 400 mg DAILY SHANTAL Administration Amlodipine Besylate 10 mg 06/14/21 11:59 06/16/21 12:37 Amlodipine 10 Mg Tab PO 10 mg SUMOWEFR SHANTAL Administration Atorvastatin Calcium 10 mg 06/14/21 11:59 06/14/21 12:14 Atorvastatin 10 Mg Tab PO 10 mg MOWEFR SHANTAL Administration Clopidogrel Bisulfate 75 mg 06/14/21 21:30 06/16/21 09:07 Clopidogrel 75 Mg Tab PO 75 mg DAILY SHANTAL Administration Docusate Sodium 100 mg 06/13/21 21:00 06/16/21 09:08 Docusate 100 Mg Cap PO 100 mg BID SHANTAL Administration Finasteride 5 mg 06/14/21 09:00 06/16/21 09:08 Finasteride 5 Mg Tab PO 5 mg DAILY SHANTAL Administration Fluticasone Propionate 2 puff 06/13/21 20:00 06/16/21 08:11 Fluticasone 110 Mcg Inhaler INHALATION 2 puff RT-BID SHANTAL Administration Isosorbide Mononitrate 30 mg 06/13/21 21:00 06/15/21 21:03 Isosorbide Mononitrate Er 30 Mg Tab.Er.24h PO 30 mg HS SHANTAL Administration Loratadine 10 mg 06/13/21 21:00 06/15/21 21:03 Loratadine 10 Mg Tab PO 10 mg HS SHANTAL Administration Losartan Potassium 50 mg 06/15/21 21:00 06/16/21 09:08 Losartan 50 Mg Tab PO 50 mg BID SHANTAL Administration Metoclopramide HCl 5 mg 06/13/21 11:59 Metoclopramide 5 Mg Tab PO TID PRN Nausea Metoprolol Tartrate 100 mg 06/15/21 12:49 06/16/21 09:07 Metoprolol Tartrate 50 Mg Tab PO 100 mg BID SHANTAL Administration Montelukast Sodium 10 mg 06/13/21 21:00 06/15/21 21:03 Montelukast 10 Mg Tab PO 10 mg HS SHANTAL Administration Nitroglycerin 0.4 mg 06/13/21 11:59 Nitroglycerin Sl Tabs 0.4 Mg Tab SUBLINGUAL Q5M PRN Chest Pain Pantoprazole Sodium 40 mg 06/14/21 07:30 06/16/21 06:44 Pantoprazole 40 Mg Tablet PO 40 mg DAILY@0730 SHANTAL Administration Rivaroxaban 15 mg 06/15/21 17:30 06/15/21 16:54 Rivaroxaban 15 Mg Tab PO 15 mg W/SUPPER SHANTAL Administration Protocol Sevelamer Carbonate 800 mg 06/13/21 21:00 06/16/21 09:09 Sevelamer 800 Mg Tab PO 800 mg BID SHANTAL Administration Torsemide 20 mg 06/14/21 09:00 06/16/21 09:09 Torsemide 20 Mg Tab PO 20 mg DAILY SHANTAL Administration Tramadol/Acetaminophen 1 each 06/13/21 11:59 Tramadol-Acetaminop 37.5-325mg 1 Each Tab PO BID PRN Analgesia Intake and Output 06/15/21 06/16/21 06/16/21 22:59 06:59 14:59 Intake Total 100 320 Output Total 0 0 0 Balance 100 0 320 Intake: Oral 100 320 Output: Stool 0 0 0 Other: Voiding Method Diaper Diaper Diaper Incontinent Incontinent Incontinent # Voids 1 1 0 Weight 110.9 kg 06/16/21 08:31 06/16/21 08:31
[2021-06-16 17:04] LABS: % Iron Saturation 29.75 (15.00-50.00)
[2021-06-16] MEDS: RIVAROXABAN 15 MG TAB PO SCH (17:18)
[2021-06-16] MEDS: LORATADINE 10 MG TAB PO SCH (21:19)
[2021-06-16] MEDS: ISOSORBIDE MONONITRATE ER 30 MG TAB.ER.24H PO SCH (21:19)
[2021-06-16] MEDS: MONTELUKAST 10 MG TAB PO SCH (21:19)
[2021-06-17] MEDS: PANTOPRAZOLE 40 MG TABLET PO SCH (05:53)
--- NOTE | 2021-06-17 07:47 | P.DS ---
Providers Date of admission: 06/13/21 06:40 Expected date of discharge: 06/17/21 Attending physician: Jyotsna Kovacs Consults: 06/13/21 06:40 Consult Physician Routine Consulting Provider: Mirian Hudson Consult Reason/Comments: cva Do you want consulting provider notified?: Yes Consult Physician Routine Consulting Provider: Ivy Chun Consult Reason/Comments: HD Do you want consulting provider notified?: Yes 06/15/21 12:56 Consult Physician Stat Consulting Provider: Frank Yi Consult Reason/Comments: new onset a-fib Do you want consulting provider notified?: Yes Primary care physician: Jyotsna Kovacs [facility] Course: HISTORY OF PRESENT ILLNESS This is a 74-year-old male one my patient with a previous medical history significant for hypertension and hypertensive cardiovascular disease, hyperlipidemia, end-stage renal disease on hemodialysis Thursday and Thursday, history of asthma/COPD, history of CAD post-PCI, history of ankylosing spondylitis, obstructive sleep apnea on a CPAP. Patient was last hospitalized in March which time he was treated for recurrent falls, gait dysfunction and memory loss with recent right lower lobe pneumonia, discharged to [facility] for subacute rehab. Patient's heard a thump downstairs around 3 AM and patient was found on the floor, couldn't get up. Patient states he was unable to move. He apparently was unable to speak at the time or follow directions. He was brought in by EMS to [facility] emergency center. He was afebrile, initial heart rate 146, blood pressure 88/55, pulse ox 95%. EKG was a sinus rhythm at 63 bpm. CAT scan of the brain showed no acute intracranial abnormality. Cerebral atrophy. CT angiogram of the head and neck were ordered but patient was unable to relax for neck films and was given Ativan. WBC 13.6, hemoglobin 1.4, platelet count 244. INR 1.0. Urinalysis negative for infection. Troponin negative. ProBNP is 6540. Lactic acid 2.4 and repeat 2.0. Phosphorus 4.9, magnesium 1.7.Coronavirus PCR not detected Chest x-ray shows correlate for chronic interstitial lung disease. Superimposed interstitial pneumonitis or venous congestion not excluded. Patient is status post 1 L of IV fluids, Zofran, morphine and IV Ativan 2. Patient is seen today in the emergency center waiting for a bed on the cardiac stepdown unit, consult with nephrology and neurology. 06/14: Patient is seen today in follow-up on the cardiac stepdown unit. Patient is awake and alert. He denies having any pain. He is scheduled for MRI today and Ativan will be provided prior to procedure. He underwent hemodialysis yesterday. Patient has been afebrile, heart rate in the 60s, blood pressure 159/67, pulse ox 96% on room air. Repeat blood work ordered for tomorrow. PT, OT, speech therapies are ordered. Patient has been seen by neurology and MRI is scheduled for today and EEG was completed and revealed toxic metabolic encephalopathy or due to diffuse structural brain abnormality. No epileptiform activity. Carotid ultrasound showed no significant hemodynamic stenosis. Echocardiogram reveals EF of 50-55%, mild concentric left hypertrophy, technically suboptimal views. 06/15: Patient is laying down in bed in no apparent distress, he just finished dialysis today appears extremely weak, he is moving all his extremities, he denies any chest pain or shortness breath, patient is not eating much he appears to be generally weak, he was seen in consultation by physical therapy we'll arrange for the patient to be going to subacute recommendation if necessary, attempted MRI of the brain the patient was not able to complete due to his ankylosing spondylitis, however. A computed tomography scan of the brain did show evidence of hypodensity in the posterior aspect of the right frontal lobe suggestive of acute infarct that is new from the prior study. patient was started on Plavix 75 mg along with ASA 325 mg orally daily, patient developed to have atrial fibrillation this morning and he will be taken off ASA and we will continue with Plavix and add Xarelto 15 mg po daily and we will consult cardiology. 06/16: Patient is laying down in bed in no apparent distress, he denies any chest pain or any shortness breath he continues to be somewhat weak, physical therapy is following the patient, patient continues to be in atrial fibrillation with a controlled heart rate, increase his metoprolol to 100 mg orally twice every day was started yesterday on Xarelto 15 mg every day along with Plavix and he was taken off aspirin, will patient likely be transferred to [facility] tomorrow morning. 06/17: Patient remains in atrial fibrillation with heart rate controlled. He is scheduled for his next hemodialysis on Thursday. He denies having any nausea and no blood in the stools. He has had a bowel movement. Patient is currently on Xarelto and Plavix. He has been afebrile, heart rate 79, blood pressure 121/72 and pulse ox 97% on room air. Patient has been seen by therapies with recommendations for subacute rehab. Patient has chosen [facility]. We will discharge patient today once arrangements are completed. DISCHARGE DIAGNOSES 1. Acute ischemic stroke or vascular accident in the posterior aspect of the right frontal lobe. 2. New onset atrial fibrillation, paroxysmal atrial fibrillation. 3. End-stage renal disease on hemodialysis. On hemodialysis Thursday and Thursday. 4. Hypertension, hypertensive cardiovascular disease. 5. Hyperlipidemia. 6. History of coronary artery disease status post PCI. 7. Chronic diastolic heart failure, stable without exacerbation. 8. Moderate intermittent asthma, stable. 9. Benign prostatic hypertrophy. 10. Gastroesophageal reflux disease. 11. Benign prostatic hypertrophy. 12. Anemia of chronic kidney disease. 13. COVID-19 testing negative. Patient has been hospitalized during a pandemic. DISCHARGE PLAN [facility] Impression and plan of care have been directed as dictated by the signing physician. Missy Manzano nurse practitioner acting as scribe for signing physician. Patient Condition at Discharge: Good Plan - Discharge Summary Discharge Rx Participant: No New Discharge Prescriptions: New Clopidogrel [Plavix] 75 mg PO DAILY tab Losartan [Cozaar] 50 mg PO BID tab Rivaroxaban [Xarelto] 15 mg PO W/SUPPER tab Metoprolol Tartrate [Lopressor] 100 mg PO BID tab Continue Montelukast [Singulair] 10 mg PO HS Dutasteride [Avodart] 0.5 mg PO DAILY Felodipine [Felodipine ER] 10 mg PO SUMOWEFR Beclomethasone Dipropionate [Qvar 80 mcg/puff] 2 puff INHALATION RT-BID Ergocalciferol [Vitamin D2 (DRISDOL)] 50,000 unit PO WE Torsemide [Demadex] 20 mg PO DAILY Isosorbide Mononitrate ER [Imdur] 30 mg PO HS Lansoprazole 30 mg PO DAILY Febuxostat [Uloric] 80 mg PO DAILY Metoclopramide [Reglan] 5 mg PO TID PRN PRN Reason: Nausea Sevelamer [Renvela] 800 mg PO BID Albuterol Inhaler [Ventolin Hfa Inhaler] 2 puff INHALATION RT-QID Omalizumab [Xolair] 150 mg SQ Q28D Loratadine 10 mg PO HS Docusate Sodium [Dok] 100 mg PO BID Nitroglycerin Sl Tabs [Nitrostat] 0.4 mg SUBLINGUAL Q5M PRN PRN Reason: Chest Pain Lidocaine-Prilocaine Cream [Emla Cream 2.5%/2.5%] 1 applic TOPICAL DIRECTED Renavite 1 tab PO HS Changed traMADol HCL/ACETAMINOPHEN [Ultracet 37.5-325] 1 tab PO BID #6 tab Atorvastatin Calcium [Lipitor] 10 mg PO DAILY #0 Discontinued Metoprolol Tartrate [Lopressor] 100 mg PO HS Aspirin [Adult Low Dose Aspirin EC] 81 mg PO DAILY Discharge Medication List Dutasteride [Avodart] 0.5 mg PO DAILY 11/11/14 [History] Felodipine [Felodipine ER] 10 mg PO SUMOWEFR 11/11/14 [History] Montelukast [Singulair] 10 mg PO HS 11/11/14 [History] Beclomethasone Dipropionate [Qvar 80 mcg/puff] 2 puff INHALATION RT-BID 11/21/15 [History] Ergocalciferol [Vitamin D2 (DRISDOL)] 50,000 unit PO WE 11/21/15 [History] Isosorbide Mononitrate ER [Imdur] 30 mg PO HS 11/21/15 [History] Torsemide [Demadex] 20 mg PO DAILY 11/21/15 [History] Febuxostat [Uloric] 80 mg PO DAILY 10/22/16 [History] Lansoprazole 30 mg PO DAILY 10/22/16 [History] Metoclopramide [Reglan] 5 mg PO TID PRN 08/27/17 [History] Sevelamer [Renvela] 800 mg PO BID 11/03/19 [History] Albuterol Inhaler [Ventolin Hfa Inhaler] 2 puff INHALATION RT-QID 02/11/20 [History] Omalizumab [Xolair] 150 mg SQ Q28D 02/13/20 [History] Docusate Sodium [Dok] 100 mg PO BID 03/17/20 [History] Loratadine 10 mg PO HS 03/17/20 [History] Lidocaine-Prilocaine Cream [Emla Cream 2.5%/2.5%] 1 applic TOPICAL DIRECTED 06/13/21 [History] Nitroglycerin Sl Tabs [Nitrostat] 0.4 mg SUBLINGUAL Q5M PRN 06/13/21 [History] Renavite 1 tab PO HS 06/13/21 [History] Atorvastatin Calcium [Lipitor] 10 mg PO DAILY #0 06/17/21 [Rx] Clopidogrel [Plavix] 75 mg PO DAILY tab 06/17/21 [Rx] Losartan [Cozaar] 50 mg PO BID tab 06/17/21 [Rx] Metoprolol Tartrate [Lopressor] 100 mg PO BID tab 06/17/21 [Rx] Rivaroxaban [Xarelto] 15 mg PO W/SUPPER tab 06/17/21 [Rx] traMADol HCL/ACETAMINOPHEN [Ultracet 37.5-325] 1 tab PO BID #6 tab 06/17/21 [Rx] Follow up Appointment(s)/Referral(s): Jyotsna Kovacs MD [Primary Care Provider] - 1-2 days Discharge Disposition: TRANSFER TO SNF/ECF
[2021-06-17] MEDS: CLOPIDOGREL 75 MG TAB PO SCH (08:44)
[2021-06-17] MEDS: allopurinoL 100 MG TAB PO SCH (08:44)
[2021-06-17] MEDS: DOCUSATE 100 MG CAP PO SCH (08:44)
[2021-06-17] MEDS: METOPROLOL TARTRATE 50 MG TAB PO SCH (08:44)
[2021-06-17] MEDS: TORSEMIDE 20 MG TAB PO SCH (08:44)
[2021-06-17] MEDS: LOSARTAN 50 MG TAB PO SCH (08:44)
[2021-06-17] MEDS: FINASTERIDE 5 MG TAB PO SCH (08:44)
[2021-06-17] MEDS: SEVELAMER 800 MG TAB PO SCH (08:44)
--- NOTE | 2021-06-17 09:12 | P.PN ---
Subjective Patient is seen in follow-up for end-stage renal disease. He is maintained on hemodialysis on Thursday schedule. No chest pain or shortness of breath. No active complaints. Hemodynamically stable. Vital signs are stable. General: The patient appeared well nourished and normally developed. HEENT: Head exam is unremarkable. LUNGS: Breath sounds decreased. HEART: Rate and Rhythm are regular. ABDOMEN: Soft, no distention. EXTREMITITES: No edema. Objective - Vital Signs Vital signs: Vital Signs Temp 98.9 F 06/17/21 08:00 Pulse 79 06/17/21 08:00 Resp 18 06/17/21 08:00 BP 121/72 06/17/21 08:00 Pulse Ox 97 06/17/21 08:00 Intake & Output 06/16/21 06/17/21 06/17/21 18:59 06:59 18:59 Intake Total 560 240 Output Total 0 Balance 560 240 Weight 114.5 kg Intake: Oral 560 240 Output: Stool 0 Other: Voiding Method Diaper Incontinent # Voids 0 1 - Labs CBC & Chem 7: 06/16/21 08:31 06/16/21 08:31 Labs: Abnormal Lab Results - Last 24 Hours (Table) 06/16/21 06/16/21 06/16/21 Range/Units 08:31 08:31 08:31 RBC 2.89 L (4.30-5.90) m/uL Hgb 9.6 L (13.0-17.5) gm/dL Hct 28.8 L (39.0-53.0) % Carbon Dioxide 20 L (22-30) mmol/L BUN 37 H (9-20) mg/dL Creatinine 6.57 H (0.66-1.25) mg/dL Glucose 154 H (74-99) mg/dL Iron 50 L (65-175) ug/dL TIBC 169 L (228-460) ug/dL Transferrin 121.0 L (204.0-354.0) mg/dL Ferritin 1339.0 H (22.0-322.0) ng/mL Total Protein 6.0 L (6.3-8.2) g/dL Albumin 2.9 L (3.5-5.0) g/dL Assessment and Plan Plan: Assessment: 1. End-stage renal disease maintained on hemodialysis on Thursday schedule. 2. Altered mental status with concern for acute ischemic stroke. Neurology following. CTA of the head and neck negative. 3. Hypertension with chronic kidney disease. Stable. 4. Chronic kidney disease mineral bone disease maintained on Renvela. 5. Anemia chronic kidney disease. Iron replete. Plan: Hemodialysis on Thursday. Add Aranesp.
[2021-06-17] MEDS: ALBUTEROL HFA INHALER INHALATION SCH ×2 (09:45→13:17)
[2021-06-17] MEDS: FLUTICASONE 110 MCG INHALER INHALATION SCH (09:45)
[2021-06-17] MEDS: amLODIPine 10 MG TAB PO SCH (11:26)
[2021-06-17] MEDS: ATORVASTATIN 10 MG TAB PO SCH (11:26)
[2021-06-17 11:29] VITALS: BP 124/80; PULSE 74; RESP 16; TEMP 98.7
[2021-06-17] MEDS ORDERED: DARBEPOETIN ALFA 40 MCG/0.4 ML SYRINGE SQ SCH (12:00)
--- NOTE | 2021-06-17 12:33 | CT ---
EXAMINATION TYPE: CT brain wo con DATE OF EXAM: 06/17/2021 COMPARISON: 06/14/2021 INDICATION: Follow up scan. DLP: 1963.4 mGycm, Automated exposure control for dose reduction was used. CONTRAST: None CT of the brain is performed utilizing 3 mm thick sections through the posterior fossa and 3 mm thick sections through the remaining calvarium. Study is performed within 24 hours of arrival to the hosp [facility]. No abnormal hyperdensity is present to suggest an acute intracranial hemorrhage. No mass lesion is evident. There is hypodensity through the left frontal parietal junction compatible with subacute ischemic tamara nge . Ventricles and sulci are appropriate for the patient age. Paranasal sinuses and mastoid air cells within the [id number] are clear. IMPRESSIONS: 1. Maturing left frontal parietal ischemic area. This may be slightly greater in volume from compar kaela.
--- NOTE | 2021-06-17 13:56 | P.PN ---
Subjective Progress Note Date: 06/17/21 HISTORY OF PRESENT ILLNESS: The patient is a 75-year-old male with multiple comorbid conditions including end-stage renal disease on dialysis and coronary artery disease following with Dr. Kurtz in the office, who is currently admitted with an acute CVA. Cardiology was consulted for new onset of atrial fibrillation. It was noted on telemetry that the patient developed atrial fibrillation on June 15. He was asymptomatic during the episode and continues to deny any cardiac symptoms. No chest pain or chest pressure. No palpitations, dizziness, or lightheadedness. The patient appears to be currently bed bound and does admit to having weakness. DIAGNOSTICS: Echocardiogram shows EF of 50-55% with poor visualization of valves Telemetry readings currently shows sinus rhythm, however the patient had paroxysms of atrial fibrillation overnight Vital signs 115/66, SpO2 96% on room air, pulse 80, respiratory rate 16, temp 98.2F Laboratory data: WBC 8.9, hemoglobin 9.6, platelet 182, sodium 137, potassium 4.3, BUN 37, creatinine 6.57, AST 23, ALT 13, LDL 32, triglycerides 97, TSH 1.8 06/17/2021 Patient examined this morning at the bedside. Patient denies chest pain or pressure. He denies shortness of breath. Telemetry reveals atrial fibrillation with controlled ventricular rate. Ejection fraction 50-55%. Patient is anticoagulated with Xarelto. PHYSICAL EXAM: VITAL SIGNS: Reviewed. GENERAL: Well-developed in no acute distress. NECK: Supple. No JVD or thyromegaly LUNGS: Respirations even and unlabored. Lungs essentially clear to auscultation bilaterally. HEART: Irregular rate and rhythm. S1 and S2 heard. Systolic murmur noted. EXTREMITIES: Normal range of motion. No clubbing or cyanosis. Peripheral pulses intact. No lower extremity edema ASSESSMENT: Acute CVA, left posterior frontal lobe New-onset paroxysmal atrial fibrillation History of CAD Hypertension Sleep apnea PLAN: Continue current cardiac medications Patient is stable for discharge today from a cardiac standpoint He is to follow up on an outpatient basis with Dr. Kurtz Nurse practitioner note has been reviewed by physician. Signing provider agrees with the documented findings, assessment, and plan of care. Objective - Vital Signs Vital signs: Vital Signs Temp 98.7 F 06/17/21 11:28 Pulse 74 06/17/21 11:28 Resp 16 06/17/21 11:28 BP 124/80 06/17/21 11:28 Pulse Ox 97 06/17/21 11:28 Intake & Output 06/16/21 06/17/21 06/17/21 18:59 06:59 18:59 Intake Total 560 780 Output Total 0 Balance 560 780 Weight 114.5 kg Intake: Oral 560 780 Output: Stool 0 Other: Voiding Method Diaper Diaper Incontinent Incontinent # Voids 0 1 0 - Labs CBC & Chem 7: 06/16/21 08:31 06/16/21 08:31 Labs: Abnormal Lab Results - Last 24 Hours (Table) 06/16/21 Range/Units 08:31 Iron 50 L (65-175) ug/dL TIBC 169 L (228-460) ug/dL Transferrin 121.0 L (204.0-354.0) mg/dL Ferritin 1339.0 H (22.0-322.0) ng/mL
--- NOTE | 2021-06-17 14:21 | P.PN ---
Subjective Progress Note Date: 06/17/21 I am seeing the patient for the first time for neurological management. Please refer to Dr. Hudson and Dr. Islas note for further details. Patient state he is doing well. Per the nurse he was oriented X1 to her. Objective - Vital Signs Vital signs: Vital Signs Temp 98.7 F 06/17/21 11:28 Pulse 74 06/17/21 11:28 Resp 16 06/17/21 11:28 BP 124/80 06/17/21 11:28 Pulse Ox 97 06/17/21 11:28 Intake & Output 06/16/21 06/17/21 06/17/21 18:59 06:59 18:59 Intake Total 560 780 Output Total 0 Balance 560 780 Weight 114.5 kg Intake: Oral 560 780 Output: Stool 0 Other: Voiding Method Diaper Diaper Incontinent Incontinent # Voids 0 1 0 - Exam Gen.: The patient is reclining in the bed. He is well-nourished, he is in no acute distress. Neurological examination Mental status: He is oriented to his name. He stated he was in the hospital but could not tell me which. He is very slow in responding. He correctly stated the current month and with options he correctly stated the year. He is able to name object correctly (pen and watch). He seems to have expressive aphasia. No neglect. Cranial Nerves: Pupils are round, equal and reactive to light bilaterally. VFF are full to confrontation throughout. EOM intact and without nystagmus. Normal facial sensation to touch. No facial weakness. No dysarthria. Tongue is midline and moves side to side without difficulty. Motor: Strength: Right arm flexion extension is 4+ to 5-. Otherwise 5/5 throughout upper. Lowers are moving above gravity without focality. Normal tone and bulk. Sensation: Normal to touch throughout. WORK-UP: CT of the head that's repeated during this hospital stay on 06/14/2021 is reported as hypodensity left posterior frontal lobe consistent with acute infarct and is a change compared to that CT of the head on yesterday (06/13/2021). No hemorrhage. CT angiography of the head and neck is reported as negative Carotid duplex was reported as no significant hemodynamic stenosis. 2-D echo was reported as technically difficult study with suboptimal views. Left ventricle size is normal. Mild concentric left ventricular hypertrophy. Ejection fraction of 50-55%. Left atrial size is normal. Routine EEGs is reported as abnormal EEG due to back or slowing of moderate to severe degree. This is suggestive of generalized cerebral dysfunction as can be seen with toxic metabolic encephalopathy or due to diffuse structural brain abnormality. No epileptiform activity was seen. TSH is 1.890. Vitamin B12 is 594 Serum folate level is more than 20 Lipid panel is triglyceride of 97, cholesterol is 85, LDLs 32 and HDL of 32 - Labs CBC & Chem 7: 06/16/21 08:31 06/16/21 08:31 Labs: Abnormal Lab Results - Last 24 Hours (Table) 06/16/21 Range/Units 08:31 Iron 50 L (65-175) ug/dL TIBC 169 L (228-460) ug/dL Transferrin 121.0 L (204.0-354.0) mg/dL Ferritin 1339.0 H (22.0-322.0) ng/mL Assessment and Plan Assessment: 1. Left frontal lobe acute ischemic infarct with expressive and possible rec eptive aphasia. Stroke seems due to embolic especially with new history of A- fib. 2. New onset atrial fibrillation 3. End-stage renal disease on hemodialysis 4. Hypertension and hyperlipidemia Plan: Patient is on Plavix 75 mg daily as well as Xarelto 15mg daily. I increased the Lipitor from 10 mg to 40 mg daily for secondary stroke prophylaxis (if patient has any side-effect recommend going back down to his 10mg). I ordered a repeat CT of the head to see if there is any evolution of the stroke. It is reported as maturing left frontal parietal ischemic area. This might be slightly greater in volume from comparison. Continue neuro checks On teletypesetter monitor Nephrology is on board for dialysis We'll defer the rest of the medical management to the primary team Upon discharge the patient needs to follow-up with a neurologist as an outpatient within 1-2 weeks. Regarding DVT prophylaxis the patient is on Xarelto. The plan is discussed with the patient's nurse. Alexander Beck M.D. Neuro-hospitalist Time with Patient: Less than 30
[2021-06-17] MEDS ORDERED: ATORVASTATIN 40 MG TAB PO SCH (21:00)
== END 2021-06-17 15:44 | DRG 64 ==
LOC: EC 03:55 → 3SCARD 06:40
PROVIDERS: ADMIT Internal Medicine; ATTEND Internal Medicine
PROC: 5A1D70Z Performance of Urinary Filtration, Intermittent, Less than 6 Hours Per Day (ICD-10-PCS; principal; 2021-06-13)
DX: I63.9 Cerebral infarction, unspecified (principal); N18.6 End stage renal disease; G93.41 Metabolic encephalopathy; I50.32 Chronic diastolic (congestive) heart failure; I13.2 Hypertensive heart and chronic kidney disease with heart failure and with stage 5 chronic kidney disease, or end stage renal disease; N17.9 Acute kidney failure, unspecified; E87.2 Acidosis; I95.9 Hypotension, unspecified; E83.9 Disorder of mineral metabolism, unspecified; D63.1 Anemia in chronic kidney disease; E11.22 Type 2 diabetes mellitus with diabetic chronic kidney disease; J44.9 Chronic obstructive pulmonary disease, unspecified; M45.9 Ankylosing spondylitis of unspecified sites in spine; I48.0 Paroxysmal atrial fibrillation; Z99.2 Dependence on renal dialysis; Z20.822 Contact with and (suspected) exposure to COVID-19; R47.01 Aphasia; R29.709 NIHSS score 9; J45.40 Moderate persistent asthma, uncomplicated; K21.9 Gastro-esophageal reflux disease without esophagitis; E78.5 Hyperlipidemia, unspecified; I25.10 Atherosclerotic heart disease of native coronary artery without angina pectoris; K22.70 Barrett's esophagus without dysplasia; G47.33 Obstructive sleep apnea (adult) (pediatric); N40.1 Benign prostatic hyperplasia with lower urinary tract symptoms; N39.498 Other specified urinary incontinence; M47.9 Spondylosis, unspecified; G89.29 Other chronic pain; M54.5 Low back pain; I44.7 Left bundle-branch block, unspecified; I49.1 Atrial premature depolarization; F32.9 Major depressive disorder, single episode, unspecified; R26.9 Unspecified abnormalities of gait and mobility; M10.072 Idiopathic gout, left ankle and foot; M10.071 Idiopathic gout, right ankle and foot; I44.0 Atrioventricular block, first degree; R29.6 Repeated falls; R41.3 Other amnesia; H91.90 Unspecified hearing loss, unspecified ear; H93.13 Tinnitus, bilateral; M19.90 Unspecified osteoarthritis, unspecified site; E66.9 Obesity, unspecified; Z68.36 Body mass index [BMI] 36.0-36.9, adult; Z79.82 Long term (current) use of aspirin; Z79.51 Long term (current) use of inhaled steroids; Z79.891 Long term (current) use of opiate analgesic; Z79.899 Other long term (current) drug therapy; Z87.39 Personal history of other diseases of the musculoskeletal system and connective tissue; Z86.010 Personal history of colon polyps; Z85.828 Personal history of other malignant neoplasm of skin; Z90.49 Acquired absence of other specified parts of digestive tract; Z87.19 Personal history of other diseases of the digestive system; Z98.42 Cataract extraction status, left eye; Z98.41 Cataract extraction status, right eye; Z96.1 Presence of intraocular lens; Z95.5 Presence of coronary angioplasty implant and graft; Z87.01 Personal history of pneumonia (recurrent); Z98.890 Other specified postprocedural states; Z88.8 Allergy status to other drugs, medicaments and biological substances; W19.XXXA Unspecified fall, initial encounter; Y92.009 Unspecified place in unspecified non-institutional (private) residence as the place of occurrence of the external cause; Z80.3 Family history of malignant neoplasm of breast; Z82.49 Family history of ischemic heart disease and other diseases of the circulatory system; Z83.3 Family history of diabetes mellitus
CPT/HCPCS: 36415; 70450; 70496; 70498; 71045; 80053; 80061; 81001; 82607; 82728; 82746; 83540; 83550; 83605; 83735; 83880; 83921; 84100; 84443; 84484; 85025; 85027; 85610; 85730; 87635; 90935; 93005; 93306; 93880; 94640; 95816; 99285

== ENCOUNTER 2022-06-04 10:37 | Inpatient (IN) | payer MEDICARE, BC, OTHER ==
[2022-06-04] MEDS ORDERED: METOPROLOL TARTRATE 5 MG/5 ML VIAL IVP STA ×2 (10:53→19:45)
--- NOTE | 2022-06-04 10:56 | ED ---
Weakness HPI - General Stated complaint: Altered Mental Status Time Seen by Provider: 06/04/22 10:40 Source: EMS, RN notes reviewed, old records reviewed Mode of arrival: EMS - History of Present Illness Initial comments: 76-year-old male history of renal failure who does get dialysis brought in by EMS today because of weakness and inability to care for himself he also had a cough concern for aspiration. Was noted initially of 87% saturation on room air. Allegedly this since that sure all day, get up to ambulate Inability himself. Apparently his is having difficult time caring for him. No other information available he apparently was seen at [facility] recently after a fall. MD Complaint: generalized weakness, difficulty walking - Related Data Home Medications Medication Instructions Recorded Confirmed Dutasteride [Avodart] 0.5 mg PO DAILY 11/11/14 06/04/22 Montelukast [Singulair] 10 mg PO HS 11/11/14 06/04/22 Beclomethasone Dipropionate [Qvar 2 puff INHALATION RT-BID 11/21/15 06/13/21 80 mcg/puff] Ergocalciferol [Vitamin D2 50,000 unit PO WE 11/21/15 06/13/21 (DRISDOL)] Isosorbide Mononitrate ER [Imdur] 30 mg PO DAILY 11/21/15 06/13/21 Torsemide [Demadex] 20 mg PO DAILY 11/21/15 06/13/21 Febuxostat [Uloric] 80 mg PO DAILY 10/22/16 06/04/22 Lansoprazole 30 mg PO BID 10/22/16 06/04/22 Sevelamer [Renvela] 800 mg PO BID-W/MEALS 11/03/19 06/13/21 Albuterol Inhaler [Ventolin Hfa 2 puff INHALATION RT-QID PRN 02/11/20 06/04/22 Inhaler] Omalizumab [Xolair] 150 mg SQ Q28D 02/13/20 06/04/22 Docusate Sodium [Dok] 100 mg PO BID 03/17/20 06/04/22 Loratadine 10 mg PO HS 03/17/20 06/04/22 Lidocaine-Prilocaine Cream [Emla 1 applic TOPICAL DIRECTED 06/13/21 06/04/22 Cream 2.5%/2.5%] Nitroglycerin Sl Tabs [Nitrostat] 0.4 mg SUBLINGUAL Q5M PRN 06/13/21 06/04/22 Renavite 1 tab PO HS 06/13/21 06/04/22 Atorvastatin Calcium [Lipitor] 10 mg PO MOWEFR 06/04/22 EPINEPHrine (Auto Inject) [Epipen] 0.3 mg PO ONCE PRN 06/04/22 Metoprolol Tartrate [Lopressor] 50 mg PO BID 06/04/22 Midodrine HCl [ProAmatine] 10 mg PO DIRECTED 06/04/22 06/04/22 Midodrine [ProAmatine] 5 mg PO DIRECTED 06/04/22 QUEtiapine [SEROquel] 12.5 mg PO DIRECTED 06/04/22 06/04/22 Sevelamer [Renvela] 800 mg PO SUMOWEFR@1200 06/04/22 guaiFENesin [Mucinex] 1,200 mg PO Q12H PRN 06/04/22 Previous Rx's Medication Instructions Recorded Clopidogrel [Plavix] 75 mg PO DAILY tab 06/17/21 Rivaroxaban [Xarelto] 15 mg PO W/SUPPER tab 06/17/21 Allergies Allergy/AdvReac Type Severity Reaction Status Date / Time diphenhydramine HCl AdvReac Confusion Verified 06/04/22 13:04 [From Benadryl] Review of Systems ROS Statement: Those systems with pertinent positive or pertinent negative responses have been documented in the HPI. ROS Other: All systems not noted in ROS Statement are negative. Limitations: ROS unobtainable due to patients medical condition Past Medical History Past Medical History: Asthma, Coronary Artery Disease (CAD), Cancer, Heart Failure, COPD, GERD/Reflux, Hearing Disorder / Deafness, Hyperlipidemia, Hypertension, Osteoarthritis (OA), Prostate Disorder, Renal Disease, Sleep Apnea/CPAP/BIPAP Additional Past Medical History / Comment(s): ESRD with hemodialysis on //Thu, anemia, BPH, bronchitis, chronic low back pain, ankylosing spondylosis, gout in ankles in past, concepcion's esophagus, colon polyp, hemo rrhoids, behind L ear basal cell skin cancer with removal, L hand squamous cell skin cancer removal, JF with Bipap, bilateral tinnitis, CHF per 2017 medical record but pt does not recall. History of Any Multi-Drug Resistant Organisms: None Reported Past Surgical History: Appendectomy, Cholecystectomy, Heart Catheterization, Heart Catheterization With Stent, Hernia Repair Additional Past Surgical History / Comment(s): Fistula L arm, EGDs, colonoscopies, abdominal hernia repair, ivette fundoplication, ruptured gallbladder with christelle/appy and piece of bowel removed, hemorrhoidectomy, behind L ear lesion removed and another from L hand, bilateral cataract removals/lens implants. Past Anesthesia/Blood Transfusion Reactions: No Reported Reaction Additional Past Anesthesia/Blood Transfusion Reaction / Comment(s): . Date of Last Stent Placement:: 2003 Past Psychological History: No Psychological Hx Reported Smoking Status: Never smoker Past Alcohol Use History: None Reported Past Drug Use History: None Reported - Past Family History Mother Family Medical History: Cancer Additional Family Medical History / Comment(s): Mother at age 72 from BREAST CANCER Father Family Medical History: Myocardial Infarction (TN) Additional Family Medical History / Comment(s): Father of a [place] at the age of 48 yrs. Sister(s) Family Medical History: Diabetes Mellitus Additional Family Medical History / Comment(s): Patient has one sister. Patient's son have any brothers. Patient has 2 children with no major medical problems. General Exam - General Exam Comments Initial Comments: This is a well-developed well-nourished awake alert but confused male reportedly at his baseline at this time. He is coughing. General appearance: alert, lethargic Head exam: Present: atraumatic, normocephalic, normal inspection Eye exam: Present: normal appearance, PERRL, EOMI. Absent: scleral icterus, conjunctival injection, periorbital swelling ENT exam: Present: mucous membranes dry Neck exam: Present: normal inspection, full ROM, other. Absent: tenderness, meningismus, lymphadenopathy Respiratory exam: Present: decreased breath sounds (No stridor JVD or bruits). Absent: respiratory distress, wheezes, rales, rhonchi, stridor Cardiovascular Exam: Present: tachycardia, irregular rhythm. Absent: systolic murmur, diastolic murmur, rubs, gallop, clicks GI/Abdominal exam: Present: soft, normal bowel sounds. Absent: distended, tenderness, guarding, rebound, rigid Extremities exam: Present: normal inspection, full ROM, normal capillary refill. Absent: tenderness, pedal edema, joint swelling, calf tenderness Back exam: Present: normal inspection Neurological exam: Present: alert, altered, CN II-XII intact Psychiatric exam: Present: normal affect, normal mood Skin exam: Present: warm, dry, intact, normal color. Absent: rash Course Vital Signs 06/04/22 11:19 Temperature 100.3 F H Pulse Rate 120 H Respiratory 22 Rate Blood Pressure 143/100 O2 Sat by Pulse 100 Oximetry Medical Decision Making - Medical Decision Making I did evaluate the patient still occasionally did discuss case the patient and his also with Dr. Kovacs patient be admitted place an IV antibiotics a pro- calcitonin is pending at this time patient be seen also consultation by Dr. Whyte and Dr. Hameed. The concern for aspiration pneumonia. - Lab Data Result diagrams: 06/04/22 11:08 06/04/22 11:08 Lab Results 06/04/22 06/04/22 06/04/22 Range/Units 11:08 11:08 11:08 WBC 11.4 H (3.8-10.6) k/uL RBC 3.41 L (4.30-5.90) m/uL Hgb 10.4 L (13.0-17.5) gm/dL Hct 32.7 L (39.0-53.0) % MCV 95.9 (80.0-100.0) fL MCH 30.5 (25.0-35.0) pg MCHC 31.9 (31.0-37.0) g/dL RDW 16.5 H (11.5-15.5) % Plt Count 201 (150-450) k/uL MPV 8.6 Neutrophils % 88 % Lymphocytes % 7 % Monocytes % 4 % Eosinophils % 0 % Basophils % 0 % Neutrophils # 10.0 H (1.3-7.7) k/uL Lymphocytes # 0.8 L (1.0-4.8) k/uL Monocytes # 0.5 (0-1.0) k/uL Eosinophils # 0.0 (0-0.7) k/uL Basophils # 0.1 (0-0.2) k/uL Hypochromasia Slight Anisocytosis Slight PT 14.5 H (9.0-12.0) sec INR 1.4 H (<1.2) APTT 26.0 (22.0-30.0) sec Sodium (137-145) mmol/L Potassium (3.5-5.1) mmol/L Chloride (98-107) mmol/L Carbon Dioxide (22-30) mmol/L Anion Gap mmol/L BUN (9-20) mg/dL Creatinine (0.66-1.25) mg/dL Est GFR (CKD-EPI)AfAm (>60 ml/min/1.73 sqM) Est GFR (CKD-EPI)NonAf (>60 ml/min/1.73 sqM) Glucose (74-99) mg/dL Plasma Lactic Acid Rock (0.7-2.0) mmol/L Calcium (8.4-10.2) mg/dL Magnesium (1.6-2.3) mg/dL Total Bilirubin (0.2-1.3) mg/dL AST (17-59) U/L ALT (4-49) U/L Alkaline Phosphatase (38-126) U/L Troponin I (0.000-0.034) ng/mL NT-Pro-B Natriuret Pep pg/mL Total Protein (6.3-8.2) g/dL Albumin (3.5-5.0) g/dL Urine Color Yellow Urine Appearance Clear (Clear) Urine pH 8.0 (5.0-8.0) Ur Specific [place] 1.010 (1.001-1.035) Urine Protein 3+ H (Negative) Urine Glucose (UA) Trace H (Negative) Urine Ketones Negative (Negative) Urine Blood Negative (Negative) Urine Nitrite Negative (Negative) Urine Bilirubin Negative (Negative) Urine Urobilinogen <2.0 (<2.0) mg/dL Ur Leukocyte Esterase Negative (Negative) Urine RBC 2 (0-5) /hpf Urine WBC 3 (0-5) /hpf Ur Squamous Epith Cells <1 (0-4) /hpf Urine Bacteria Rare H (None) /hpf Hyaline Casts 1 (0-2) /lpf Urine Mucus Rare H (None) /hpf Coronavirus (PCR) (Not Detectd) Influenza Type A RNA (Not Detectd) Influenza Type B (PCR) (Not Detectd) 06/04/22 06/04/22 06/04/22 Range/Units 11:08 11:08 11:08 WBC (3.8-10.6) k/uL RBC (4.30-5.90) m/uL Hgb (13.0-17.5) gm/dL Hct (39.0-53.0) % MCV (80.0-100.0) fL MCH (25.0-35.0) pg MCHC (31.0-37.0) g/dL RDW (11.5-15.5) % Plt Count (150-450) k/uL MPV Neutrophils % % Lymphocytes % % Monocytes % % Eosinophils % % Basophils % % Neutrophils # (1.3-7.7) k/uL Lymphocytes # (1.0-4.8) k/uL Monocytes # (0-1.0) k/uL Eosinophils # (0-0.7) k/uL Basophils # (0-0.2) k/uL Hypochromasia Anisocytosis PT (9.0-12.0) sec INR (<1.2) APTT (22.0-30.0) sec Sodium 138 (137-145) mmol/L Potassium 4.7 (3.5-5.1) mmol/L Chloride 96 L (98-107) mmol/L Carbon Dioxide 25 (22-30) mmol/L Anion Gap 17 mmol/L BUN 28 H (9-20) mg/dL Creatinine 5.49 H (0.66-1.25) mg/dL Est GFR (CKD-EPI)AfAm 11 (>60 ml/min/1.73 sqM) Est GFR (CKD-EPI)NonAf 9 (>60 ml/min/1.73 sqM) Glucose 166 H (74-99) mg/dL Plasma Lactic Acid Rock 2.5 H* (0.7-2.0) mmol/L Calcium 10.2 (8.4-10.2) mg/dL Magnesium 1.7 (1.6-2.3) mg/dL Total Bilirubin 1.3 (0.2-1.3) mg/dL AST 19 (17-59) U/L ALT 12 (4-49) U/L Alkaline Phosphatase 94 (38-126) U/L Troponin I 0.031 (0.000-0.034) ng/mL NT-Pro-B Natriuret Pep pg/mL Total Protein 7.7 (6.3-8.2) g/dL Albumin 3.7 (3.5-5.0) g/dL Urine Color Urine Appearance (Clear) Urine pH (5.0-8.0) Ur Specific [place] (1.001-1.035) Urine Protein (Negative) Urine Glucose (UA) (Negative) Urine Ketones (Negative) Urine Blood (Negative) Urine Nitrite (Negative) Urine Bilirubin (Negative) Urine Urobilinogen (<2.0) mg/dL Ur Leukocyte Esterase (Negative) Urine RBC (0-5) /hpf Urine WBC (0-5) /hpf Ur Squamous Epith Cells (0-4) /hpf Urine Bacteria (None) /hpf Hyaline Casts (0-2) /lpf Urine Mucus (None) /hpf Coronavirus (PCR) (Not Detectd) Influenza Type A RNA (Not Detectd) Influenza Type B (PCR) (Not Detectd) 06/04/22 06/04/22 06/04/22 Range/Units 11:08 11:08 11:08 WBC (3.8-10.6) k/uL RBC (4.30-5.90) m/uL Hgb (13.0-17.5) gm/dL Hct (39.0-53.0) % MCV (80.0-100.0) fL MCH (25.0-35.0) pg MCHC (31.0-37.0) g/dL RDW (11.5-15.5) % Plt Count (150-450) k/uL MPV Neutrophils % % Lymphocytes % % Monocytes % % Eosinophils % % Basophils % % Neutrophils # (1.3-7.7) k/uL Lymphocytes # (1.0-4.8) k/uL Monocytes # (0-1.0) k/uL Eosinophils # (0-0.7) k/uL Basophils # (0-0.2) k/uL Hypochromasia Anisocytosis PT (9.0-12.0) sec INR (<1.2) APTT (22.0-30.0) sec Sodium (137-145) mmol/L Potassium (3.5-5.1) mmol/L Chloride (98-107) mmol/L Carbon Dioxide (22-30) mmol/L Anion Gap mmol/L BUN (9-20) mg/dL Creatinine (0.66-1.25) mg/dL Est GFR (CKD-EPI)AfAm (>60 ml/min/1.73 sqM) Est GFR (CKD-EPI)NonAf (>60 ml/min/1.73 sqM) Glucose (74-99) mg/dL Plasma Lactic Acid Rock (0.7-2.0) mmol/L Calcium (8.4-10.2) mg/dL Magnesium (1.6-2.3) mg/dL Total Bilirubin (0.2-1.3) mg/dL AST (17-59) U/L ALT (4-49) U/L Alkaline Phosphatase (38-126) U/L Troponin I (0.000-0.034) ng/mL NT-Pro-B Natriuret Pep 11275 pg/mL Total Protein (6.3-8.2) g/dL Albumin (3.5-5.0) g/dL Urine Color Urine Appearance (Clear) Urine pH (5.0-8.0) Ur Specific [place] (1.001-1.035) Urine Protein (Negative) Urine Glucose (UA) (Negative) Urine Ketones (Negative) Urine Blood (Negative) Urine Nitrite (Negative) Urine Bilirubin (Negative) Urine Urobilinogen (<2.0) mg/dL Ur Leukocyte Esterase (Negative) Urine RBC (0-5) /hpf Urine WBC (0-5) /hpf Ur Squamous Epith Cells (0-4) /hpf Urine Bacteria (None) /hpf Hyaline Casts (0-2) /lpf Urine Mucus (None) /hpf Coronavirus (PCR) Not Detected (Not Detectd) Influenza Type A RNA Not Detected (Not Detectd) Influenza Type B (PCR) Not Detected (Not Detectd) - EKG Data -: EKG Interpreted by Me EKG Comments: A. fib rate of 128 QRS 145 QT since QTC 324/400 with a bundle-branch block pattern - Radiology Data Radiology results: report reviewed (Image reviewed as well as reports evidence of interstitial and alveolar infiltrate though heart failure not ruled out), image reviewed Critical Care Time Critical Care Time: Yes Total Critical Care Time: 39 Critical Care Time: Critical care time includes initial presentation with history physical labs x- rays discussed with paramedics upon arrival blood flow reevaluation the patient response to therapy discuss with the patient family discuss with the admitting physician admission orders neck mentation the above Disposition Clinical Impression: Delirium due to general medical condition, Rapid atrial fibrillation, Aspiration pneumonia, Febrile illness, acute, Chronic renal failure syndrome, Lactic acidosis Disposition: ADMITTED IP TO THIS [facility] Condition: Fair Referrals: None,Stated [REFERRING] - 1-2 days Decision Date: 06/04/22 Decision Time: 13:30
--- NOTE | 2022-06-04 11:30 | XR ---
EXAMINATION TYPE: XR chest 2V DATE OF EXAM: 06/04/2022 COMPARISON: 06/13/2021 TECHNIQUE: PA and lateral views submitted. HISTORY: Difficulty breathing FINDINGS: Diffuse interstitial pattern with bilateral infiltrate and pleural effusion. Postsurgical changes in the epigastrium. No sizable pneumothorax. Diffuse osteopenia. IMPRESSION: 1. Correlate for CHF. Otherwise consider diffuse interstitial and alveolar pneumonia.
[2022-06-04 11:32] LABS: Anisocytosis Slight; Basophils # (A) 0.1 k/uL (0-0.2); Basophils % (A) 0 %; Eosinophils % (A) 0 %; HCT 32.7 % (39.0-53.0); HGB 10.4 gm/dL (13.0-17.5); Hypochromasia Slight; Lymphocytes # (A) 0.8 k/uL (1.0-4.8); Lymphocytes % (A) 7 %; MCH 30.5 pg (25.0-35.0); MCHC 31.9 g/dL (31.0-37.0); MCV 95.9 fL (80.0-100.0); Mean Platelet Volume 8.6; Monocytes # (A) 0.5 k/uL (0-1.0); Monocytes % (A) 4 %; Neutrophils % (A) 88 %; Platelet Count 201 k/uL (150-450); RBC 3.41 m/uL (4.30-5.90); RDW 16.5 % (11.5-15.5); WBC 11.4 k/uL (3.8-10.6)
[2022-06-04 11:35] LABS: INR 1.4 (<1.2); Prothrombin Time 14.5 sec (9.0-12.0)
[2022-06-04 11:37] LABS: Total Protein 7.7 g/dL (6.3-8.2)
[2022-06-04 11:39] LABS: Albumin 3.7 g/dL (3.5-5.0); Calcium 10.2 mg/dL (8.4-10.2); Magnesium 1.7 mg/dL (1.6-2.3); Potassium 4.7 mmol/L (3.5-5.1); Total Bilirubin 1.3 mg/dL (0.2-1.3)
[2022-06-04 12:35] LABS: Appearance,Urine Clear (Clear); Bacteria,Urine Rare /hpf; Bilirubin,Urine Negative (Negative); Blood,Urine Negative (Negative); Color,Urine Yellow; Glucose,Urine (UA) Trace (Negative); Hyaline Casts,Urine 1 /lpf (0-2); Ketones,Urine Negative (Negative); Leukocyte Esterase,Urine Negative (Negative); Mucus,Urine Rare /hpf; Nitrite,Urine Negative (Negative); Protein,Urine 3+ (Negative); RBC,Urine 2 /hpf (0-5); Squamous Epithelial Cell,Urine <1 /hpf (0-4); Urobilinogen,Urine <2.0 mg/dL (<2.0); WBC,Urine 3 /hpf (0-5)
[2022-06-04] MEDS ORDERED: CEFEPIME 2 GM in SODIUM CHLORIDE 0.9% 100 ML IVPB STA (13:44)
[2022-06-04] MEDS ORDERED: PNEUMONIA PROTOCOL UTILIZED 1 EACH MISC PO PRN (13:46)
[2022-06-04] MEDS ORDERED: guaiFENesin 600 MG TABLET.ER PO PRN (13:49)
[2022-06-04] MEDS ORDERED: NITROGLYCERIN SL TABS 0.4 MG TAB SUBLINGUAL PRN (13:49)
--- NOTE | 2022-06-04 14:13 | P.HPIM ---
History of Present Illness H&P Date: 06/04/22 HISTORY OF PRESENT ILLNESS This is a 76-year-old male patient with a previous medical history significant for hypertension and hypertensive cardiovascular disease, hyperlipidemia, end- stage renal disease on hemodialysis Thursday and Thursday, history of asthma/COPD, history of CAD post-PCI, history of ankylosing spondylitis, obstructive sleep apnea on a CPAP, CVA. Patient had CVA in June 2021 followed by a long stay at [facility] for subacute rehab. Patient was eventually discharged home and approximately January 2022 to live with his . She states that he did have 2 falls back in February but none in March and April, this month patient has had 5 falls requiring EMS to come and help her get him up. On Thursday and the morning she heard a crash and found him in the bathroom was jammed behind the door. He was able to pull himself up and denied having any pain or injury. Patient went back to bed and when he got for breakfast she heard that he had another fall but this time he had hit his head. EMS picked the patient brought him to [facility]. Patient apparently underwent a CAT scan of the head and neck which were negative. He was prepared for discharge home but he was scheduled for an EGD with Dr. Mendoza on Thursday which is done every 2 years due to Concepcion's esophagus and it was decided the patient would stay and undergo EGD. The procedure was uneventful but patient had difficulty waking from anesthesia following. He ended up staying another day and was discharged home yesterday. Patient was apparently in his normal state of health and awake and alert when he came home was not having any issues at all. They had dinner together he watch some TV and went to bed around 10 PM. He was started on a new medication, Seroquel 12.5 mg at bedtime which she gave to him before bed. When patient woke up he was having significant cough around 5:45 in the morning. He was able go back to sleep until about 8 AM but she noticed a significant change in his mental status. His last hemodialysis was yesterday and usual schedule is Thursday. Patient was found have a temperature 100.3, heart rate documented at 120 although also at 150 with A. fib with RVR and was given metoprolol 5 mg IV push with improvement down to 110s to 120s for heart rate. Blood pressure initially 143/100, pulse ox 100% on 4 L nasal cannula. WBC 11.4, hemoglobin 10.4, platelet count 201. INR 1.4. Sodium 130, potassium 4.7, chloride 96, CO2 25, BUN 28 creatinine was 5.49. Blood sugar 166. Lactic acid 2.5. Magnesium 1.7. Total bilirubin 1.3, AST 19, ALT 12, alkaline phosphatase 94. Troponin 0.031. ProBNP 30,400. Albumin 3.7. Urinalysis was clear with nitrate and leukoesterase negative. Coronavirus PCR, influenza A, in fluenza B all were not detected. Lay catheter was placed as a urinalysis was required in the emergency center. Chest x-ray correlate for heart failure consider diffuse interstitial and alveolar pneumonia. Patient was started on cefepime, DuoNeb treatments, consults with pulmonary medicine and nephrology. REVIEW OF SYSTEMS Constitutional: Reported fever, reported chills, no night sweats. No weight change. Reported weakness, reported fatigue reported lethargy. Reported daytime sleepiness. EENT: No headache. No blurred vision or double vision, no loss of vision. No loss of Hearing, no ringing in the ears, no dizziness. No nasal drainage or congestion. No epistaxis. No sore throat. Lungs: No shortness of breath, noted cough, no sputum production. No wheezing. Cardiovascular: No chest pain, no lower extremity edema. No palpitations. No paroxysmal nocturnal dyspnea. No orthopnea. No lightheadedness or dizziness. No syncopal episodes. Abdominal: No abdominal pain. No nausea, vomiting. No diarrhea. No constipation. No bloody or tarry stools.. No loss of appetite. Genitourinary: No dysuria, increased frequency, urgency. No urinary retention. Musculoskeletal: No myalgias. No muscle weakness, no gait dysfunction, no frequent falls. No back pain. No neck pain. Integumentary: No wounds, no lesions. No rash or pruritus. No unusual bruis ing. No change in hair or nails. Neurologic: Reported aphasia. No facial droop. Noted change in mentation. No head injury. No headache. No paralysis. No paresthesia. Psychiatric: No depression. No anxiety. No mood swings. Endocrine: No abnormal blood sugars. No weight change. No excessive sweating or thirst. No cold intolerance. MEDICAL HISTORY Hypertension and hypertensive perivascular disease Hyperlipidemia Coronary artery disease status post PCI Paroxysmal atrial fibrillation Chronic diastolic heart failure Moderate intermittent persistent asthma Benign prostatic hypertrophy Gastroesophageal reflux disease with Concepcion's esophagus Idiopathic gout Major depressive disorder ALLERGIC rhinitis End-stage renal disease on hemodialysis Thursday Ankylosing spondylitis Obstructive sleep apnea on CPAP CVA SURGICAL HISTORY Appendectomy Cholecystectomy Left heart catheterization with PCI and stent Hernia repair Left arm fistula EGD and colonoscopies Niesen fundoplication Hemorrhoidectomy Bilateral cataract removal and intraocular lens implants. SOCIAL HISTORY Patient is a lifelong nonsmoker, no illicit drug use, no alcohol use. Patient was at home with his . He was recently at [facility] for subacute rehab. FAMILY HISTORY Father at age 48 from myocardial infarction. Mother at age 72 from breast cancer. Patient has one sister, one son and one daughter with no major medical problems. PHYSICAL EXAMINATION Gen: This is a 75-year-old obese occasion male. He is resting on the ER stretcher and Patient's is at bedside. Patient is noted to have a continuous clearing of his throat. HEENT: Head is atraumatic, normocephalic. Pupils equal, round. Sclerae is anicteric. NECK: Supple. No JVD. No lymphadenopathy. No thyromegaly. LUNGS: Decreased breath sounds at the bases. No crackles, no wheezes. No intercostal retractions. HEART: First heart sound is depressed, second heart sound is normal, there is systolic ejection murmur 2/6 located in the left sternal border. Tachycardic and irregular. ABDOMEN: Soft. Bowel sounds are present. No masses. No tenderness. EXTREMITIES: No pedal edema. No calf tenderness. Dorsalis pedis +1 bilaterally. NEUROLOGICAL: Patient is drowsy, unable to answer questions or follow commands. ASSESSMENT AND PLAN 1. Metabolic encephalopathy secondary to aspiration pneumonia. 2. Suspected aspiration pneumonia and sepsis. Patient started on cefepime, DuoNeb treatments every 4 hours as needed, consult with pulmonary medicine. 3. Lactic acidosis secondary to pneumonia. Continue treatment as a #2. 4. Atrial fibrillation with RVR, paroxysmal atrial fibrillation, status post IV Lopressor. Patient will be resumed on Lopressor 50 mg twice daily, Xarelto 15 mg daily at supper. 5. Acute on chronic diastolic heart failure. Continue Demadex 20 mg daily, Lopressor, Renvela 800 mg twice daily and 800 mg on Thursday at noon. 6. History of CVA. Continue atorvastatin 10 mg Thursday. 7. End-stage renal disease on hemodialysis. Consult with nephrology. 8. Hypertension, hypertensive cardiovascular disease. Continue felodipine 10 mg Thursday and Thursday, Lopressor, Imdur 9. Hyperlipidemia. Continue atorvastatin. 10. History of coronary artery disease status post PCI. Continue Imdur 30 mg daily, aspirin, Lipitor, continue Lopressor 100 mg at bedtime. 11. Moderate intermittent asthma, stable. Continue Pulmicort 0.5 mg twice daily, Mucinex 1200 mg oral every 12 hours as needed for cough, DuoNeb treatments. 12. Benign prostatic hypertrophy. Lay was placed in the emergency center for a urine specimen. 13. Gastroesophageal reflux disease. Continue PPI. 14. DVT prophylaxis. Xarelto Patient will be admitted to the hospital for a minimum of 2 night stay. DISCHARGE PLAN To be determined. Most likely subacute rehab at [facility]. Social work consult. Impression and plan of care have been directed as dictated by the signing physician. Missy Manzano nurse practitioner acting as scribe for signing physician. Past Medical History Past Medical History: Asthma, Coronary Artery Disease (CAD), Cancer, Heart Failure, COPD, GERD/Reflux, Hearing Disorder / Deafness, Hyperlipidemia, Hypert ension, Osteoarthritis (OA), Prostate Disorder, Renal Disease, Sleep Apnea/CPAP/BIPAP Additional Past Medical History / Comment(s): ESRD with hemodialysis on /Thu, anemia, BPH, bronchitis, chronic low back pain, ankylosing spondylosis, gout in ankles in past, concepcion's esophagus, colon polyp, hemorrhoids, behind L ear basal cell skin cancer with removal, L hand squamous cell skin cancer removal, JF with Bipap, bilateral tinnitis, CHF per 2017 medical record but pt does not recall. History of Any Multi-Drug Resistant Organisms: None Reported Past Surgical History: Appendectomy, Cholecystectomy, Heart Catheterization, Heart Catheterization With Stent, Hernia Repair Additional Past Surgical History / Comment(s): Fistula L arm, EGDs, colonoscopies, abdominal hernia repair, ivette fundoplication, ruptured gallbladder with christelle/appy and piece of bowel removed, hemorrhoidectomy, behind L ear lesion removed and another from L hand, bilateral cataract removals/lens implants. Past Anesthesia/Blood Transfusion Reactions: No Reported Reaction Additional Past Anesthesia/Blood Transfusion Reaction / Comment(s): . Date of Last Stent Placement:: 2003 Past Psychological History: No Psychological Hx Reported Smoking Status: Never smoker Past Alcohol Use History: None Reported Past Drug Use History: None Reported - Past Family History Mother Family Medical History: Cancer Additional Family Medical History / Comment(s): Mother at age 72 from BREAST CANCER Father Family Medical History: Myocardial Infarction (NC) Additional Family Medical History / Comment(s): Father of a NC at the age of 48 yrs. Sister(s) Family Medical History: Diabetes Mellitus Additional Family Medical History / Comment(s): Patient has one sister. Patient's son have any brothers. Patient has 2 children with no major medical problems. Medications and Allergies Home Medications Medication Instructions Recorded Confirmed Type Dutasteride [Avodart] 0.5 mg PO DAILY 11/11/14 06/04/22 History Montelukast [Singulair] 10 mg PO HS 11/11/14 06/04/22 History Beclomethasone Dipropionate [Qvar 2 puff INHALATION RT-BID 11/21/15 06/04/22 History 80 mcg/puff] Ergocalciferol [Vitamin D2 50,000 unit PO WE 11/21/15 06/04/22 History (DRISDOL)] Isosorbide Mononitrate ER [Imdur] 30 mg PO DAILY 11/21/15 06/04/22 History Torsemide [Demadex] 20 mg PO DAILY 11/21/15 06/04/22 History Febuxostat [Uloric] 80 mg PO DAILY 10/22/16 06/04/22 History Lansoprazole 30 mg PO BID 10/22/16 06/04/22 History Sevelamer [Renvela] 800 mg PO BID-W/MEALS 11/03/19 06/04/22 History Albuterol Inhaler [Ventolin Hfa 2 puff INHALATION RT-QID PRN 02/11/20 06/04/22 History Inhaler] Omalizumab [Xolair] 150 mg SQ Q28D 02/13/20 06/04/22 History Docusate Sodium [Dok] 100 mg PO BID 03/17/20 06/04/22 History Loratadine 10 mg PO HS 03/17/20 06/04/22 History Lidocaine-Prilocaine Cream [Emla 1 applic TOPICAL DIRECTED 06/13/21 06/04/22 History Cream 2.5%/2.5%] Nitroglycerin Sl Tabs [Nitrostat] 0.4 mg SUBLINGUAL Q5M PRN 06/13/21 06/04/22 History Renavite 1 tab PO HS 06/13/21 06/04/22 History Clopidogrel [Plavix] 75 mg PO DAILY tab 06/17/21 06/04/22 Rx Rivaroxaban [Xarelto] 15 mg PO W/SUPPER tab 06/17/21 06/04/22 Rx Atorvastatin Calcium [Lipitor] 10 mg PO MOWEFR@2100 06/04/22 06/04/22 History Budesonide [Pulmicort] 0.5 mg INHALATION RT-BID 06/04/22 06/04/22 History EPINEPHrine (Auto Inject) [Epipen] 0.3 mg PO ONCE PRN 06/04/22 06/04/22 History Metoprolol Tartrate [Lopressor] 50 mg PO BID 06/04/22 06/04/22 History Midodrine HCl [ProAmatine] 10 mg PO TID 06/04/22 06/04/22 History QUEtiapine [SEROquel] 12.5 mg PO HS 06/04/22 06/04/22 History Sevelamer [Renvela] 800 mg PO SUMOWEFR@1200 06/04/22 06/04/22 History guaiFENesin [Mucinex] 1,200 mg PO Q12H PRN 06/04/22 06/04/22 History Allergies Allergy/AdvReac Type Severity Reaction Status Date / Time diphenhydramine HCl AdvReac Confusion Verified 06/04/22 13:04 [From Junie] Physical Exam Vitals: Vital Signs Temp Pulse Resp BP Pulse Ox 06/04/22 11:19 100.3 F H 120 H 22 143/100 100 Intake and Output 06/03/22 06/04/22 06/04/22 22:59 06:59 14:59 Other: Weight 95.254 kg Results CBC & Chem 7: 06/05/22 07:13 06/05/22 07:13 Labs: Abnormal Lab Results - Last 24 Hours (Table) 06/04/22 06/04/22 06/04/22 Range/Units 11:08 11:08 11:08 WBC 11.4 H (3.8-10.6) k/uL RBC 3.41 L (4.30-5.90) m/uL Hgb 10.4 L (13.0-17.5) gm/dL Hct 32.7 L (39.0-53.0) % RDW 16.5 H (11.5-15.5) % Neutrophils # 10.0 H (1.3-7.7) k/uL Lymphocytes # 0.8 L (1.0-4.8) k/uL PT 14.5 H (9.0-12.0) sec INR 1.4 H (<1.2) Chloride (98-107) mmol/L BUN (9-20) mg/dL Creatinine (0.66-1.25) mg/dL Glucose (74-99) mg/dL Plasma Lactic Acid Rock (0.7-2.0) mmol/L Urine Protein 3+ H (Negative) Urine Glucose (UA) Trace H (Negative) Urine Bacteria Rare H (None) /hpf Urine Mucus Rare H (None) /hpf 06/04/22 06/04/22 Range/Units 11:08 11:08 WBC (3.8-10.6) k/uL RBC (4.30-5.90) m/uL Hgb (13.0-17.5) gm/dL Hct (39.0-53.0) % RDW (11.5-15.5) % Neutrophils # (1.3-7.7) k/uL Lymphocytes # (1.0-4.8) k/uL PT (9.0-12.0) sec INR (<1.2) Chloride 96 L (98-107) mmol/L BUN 28 H (9-20) mg/dL Creatinine 5.49 H (0.66-1.25) mg/dL Glucose 166 H (74-99) mg/dL Plasma Lactic Acid Rock 2.5 H* (0.7-2.0) mmol/L Urine Protein (Negative) Urine Glucose (UA) (Negative) Urine Bacteria (None) /hpf Urine Mucus (None) /hpf
[2022-06-04] MEDS: SODIUM CHLORIDE 0.9% 1,000 ML IV SCH (14:52)
[2022-06-04] MEDS: METOPROLOL TARTRATE 50 MG TAB PO SCH ×3 (15:32→23:31)
[2022-06-04] MEDS: ATORVASTATIN 10 MG TAB PO SCH ×2 (15:32→15:37)
[2022-06-04] MEDS ORDERED: CEFEPIME 2 GM in SODIUM CHLORIDE 0.9% 100 ML IVPB SCH (16:00)
[2022-06-04] MEDS ORDERED: CEFEPIME 1 GM in SODIUM CHLORIDE 0.9% 50 ML IVPB SCH (16:00)
[2022-06-04] MEDS: BUDESONIDE 0.5 MG/2 ML NEBU INHALATION SCH (19:20)
[2022-06-04] MEDS ORDERED: ACETAMINOPHEN IV (For NPO) 1,000 MG in EMPTY BAG 1 BAG IVPB STA (20:04)
[2022-06-04] MEDS ORDERED: DILTIAZEM DRIP BOLUS FROM BAG 1 MG SOLN IV ONE (21:11)
[2022-06-04] MEDS ORDERED: VANCOMYCIN IV PER PHARMACY 1 EACH MISC MISCELLANE PRN (21:13)
[2022-06-04] MEDS ORDERED: VANCOMYCIN 1,500 MG in SODIUM CHLORIDE 0.9% 250 ML IVPB STA (21:21)
[2022-06-04 21:23] LABS: Glucose,Whole Blood 140 mg/dL (70-110)
[2022-06-04] MEDS: DILTIAZEM 125 MG in SODIUM CHLORIDE 0.9% 100 ML IV SCH (21:53)
[2022-06-04] MEDS: PANTOPRAZOLE 40 MG TABLET PO SCH (23:31)
[2022-06-04] MEDS: SEVELAMER 800 MG TAB PO SCH (23:31)
[2022-06-04] MEDS: RIVAROXABAN 15 MG TAB PO SCH (23:31)
[2022-06-04] MEDS: MONTELUKAST 10 MG TAB PO SCH (23:31)
[2022-06-04] MEDS: DOCUSATE 100 MG CAP PO SCH (23:31)
[2022-06-04] MEDS: MULTIVITAMINS, THERA 1 EACH TAB PO SCH (23:31)
[2022-06-04] MEDS: LORATADINE 10 MG TAB PO SCH (23:31)
[2022-06-05] MEDS: SEVELAMER 800 MG TAB PO SCH ×2 (06:01→15:57)
[2022-06-05] MEDS: BUDESONIDE 0.5 MG/2 ML NEBU INHALATION SCH ×2 (08:13→19:50)
[2022-06-05] MEDS: IPRATROPIUM-ALBUTEROL 3 ML NEB INHALATION PRN ×2 (08:13→19:50)
[2022-06-05 08:25] LABS: Anisocytosis Slight; HCT 32.5 % (39.0-53.0); HGB 10.1 gm/dL (13.0-17.5); Hypochromasia Moderate; MCH 29.9 pg (25.0-35.0); MCHC 31.2 g/dL (31.0-37.0); Mean Platelet Volume 8.2; Platelet Count 165 k/uL (150-450); RBC 3.39 m/uL (4.30-5.90); RDW 16.2 % (11.5-15.5); WBC 15.4 k/uL (3.8-10.6)
[2022-06-05 08:38] LABS: Albumin 3.6 g/dL (3.5-5.0); Calcium 9.3 mg/dL (8.4-10.2); Total Bilirubin 1.5 mg/dL (0.2-1.3); Total Protein 7.4 g/dL (6.3-8.2)
[2022-06-05 08:40] LABS: Potassium 5.3 mmol/L (3.5-5.1)
[2022-06-05] MEDS: METOPROLOL TARTRATE 50 MG TAB PO SCH ×2 (08:42→20:23)
[2022-06-05] MEDS: TORSEMIDE 20 MG TAB PO SCH (08:42)
[2022-06-05] MEDS: PANTOPRAZOLE 40 MG TABLET PO SCH ×2 (08:42→20:23)
[2022-06-05] MEDS: FINASTERIDE 5 MG TAB PO SCH (08:42)
[2022-06-05] MEDS: ISOSORBIDE MONONITRATE ER 30 MG TAB.ER.24H PO SCH (08:42)
[2022-06-05] MEDS: allopurinoL 100 MG TAB PO SCH (08:42)
[2022-06-05] MEDS: DOCUSATE 100 MG CAP PO SCH ×2 (08:42→20:23)
[2022-06-05] MEDS: CLOPIDOGREL 75 MG TAB PO SCH (08:42)
--- NOTE | 2022-06-05 08:48 | XR ---
EXAMINATION TYPE: XR chest 1V portable DATE OF EXAM: 06/05/2022 HISTORY: Shortness of breath. COMPARISON: 920 TECHNIQUE: Single view of the chest is submitted. FINDINGS: Demonstrated are scattered senescent parenchymal change. Increasing infiltrate left perihilar and left lower lobe as well as right lung base likely in the bas is of pneumonia. There is mild superimposed pulmonary venous congestion. The heart is stable. Hilar and mediastinal structures are within normal limits. Degenerative changes are seen of the dorsal spine. IMPRESSION: 1. Increasing infiltrate left perihilar and left lower lobe as well as right lung base likely in the basis of pneumonia. There is mild superimposed pulmonary venous congestion.
--- NOTE | 2022-06-05 08:58 | CDI ---
Documentation Clarification Form Date: 06/05/2022 08:27:21 AM From: Shania De La Rosa CCS, CCDS Admit Date: 06/04/2022 01:56:00 PM Patient Name: Sulaiman Dumont Visit Number: [id number] Discharge Date: ATTENTION: The Clinical Documentation Specialists (CDI) and [facility] Coding Staff appreciate your assistance in clarifying documentation. Please respond to the clarification below the line at the bottom and electronically sign. The CDI & [facility] Coding staff will review the response and follow-up if needed. Please note: Queries are made part of the Legal Health Record. If you have any questions, please contact the author of this message via ITS. Dr. Jyotsna Kovacs: The patient presented with the following clinical indicators. Additional clarification regarding the etiology/cause of the clinical indicators is requested. History/Risk Factors per the 06/04 Hypertension with Hypertensive cardiovascular disease, Hyperlipidemia, CAD status post PCI, Paroxysmal Atrial Fibrillation, Chronic Diastolic Heart Failure, Moderate Intermittent Persistent Asthma, BPH, GERD w/Prabhakar's esophagus, Idiopathic Gout, Major Depressive Disorder, Allergic Rhinitis, ESRD on Hemodialysis, JF on CPAP, CVA. Clinical Indicators: Presented to the ED on 06/04 with weakness, altered mental status, cough with concern for aspiration with PO 87% on room air. Recently seen at [facility] after a fall and had hit his head, CT negative. Admit with Delirium due to general medical condition, Rapid Atrial Fibrillation, Aspiration, Acute Febrile Illness, Chronic Renal Failure Syndrome and Lactic Acidosis. 06/04 VS: 100.3, P 120, R 22, BP 143/100, PO 100 4Lnc, BMI: 29.3 06/04 LAB: WBC 11.4, RBC 3.41, Hgb 10.4, Hct 32.7, Neutrophils 10.0, Lymphocytes 0.8; PT 14.5, INR 1.4; Chl 96, BUN 28, Creatinine 5.49, Glucose 166, Lactic Acid 2.5, 1.0; Procalcitonin 0.47. 06/04 CXR: Correlate for CHF, Consider pneumonia. Treatment 06/04: Lay catheter placed, Blood cultures, Sputum culture, O2 4Lnc, IV Lopressor 5 mg x1, IV Cefepime 100 mls @ 200 mls/hr x1, INH Duoneb q4H/prn, IV Na Chl 1,000 mls @ 20 mls/hr q24H, INH Pulmicort 0.5 mg BID, IV Tylenol 100 mls @ 400 mls/hr x1, IV Cardizem Drip Bolus 5 mg x1, IV Cardizem 125 mls @ 5 mls/hr q24H. In your professional opinion, please clarify if these findings signify one of the following conditions: [ ] Sepsis POA [ ] Sepsis, Not POA [ ] Severe Sepsis with organ failure [ ] Other, please specify [ ] Unable to determine (Template Last Reviewed: October 2020) 06/06 Query response documented in the 06/05 and 06/06 Attending Physician Progress Note, Dr. Kovacs: Aspiration Pneumonia and Sepsis. (CDI: CIDNI) MTDD
[2022-06-05] MEDS ORDERED: LORazepam 1 MG/0.5 ML VIAL IV STA (09:40)
[2022-06-05] MEDS ORDERED: PIPERACILLIN-TAZOBACTAM 3.375 GM in SODIUM CHLORIDE 0.9% 100 ML IVPB SCH (10:00)
--- NOTE | 2022-06-05 10:52 | P.NPCON ---
History of Present Illness - Reason for Consult end stage renal disease - History of Present Illness Reason for consultation: End-stage renal disease History of present illness: Patient is a 76-year-old male seen in renal consultation for end-stage renal disease. He is maintained on hemodialysis on Thursday schedule. Patient was just admitted at [facility] and was disch arged 2 days ago. He returned to the hospital yesterday. During his previous admission he was admitted due to fall. CT of the head and neck was negative. He also underwent EGD due to his history of Concepcion's esophagus. At home patient became progressively weaker and also had a temperature of 100.3F at time of admission. Patient is currently confused. He is undergoing hemodialysis. Blood pressure stable. He is currently on Cardizem drip for A. fib with RVR. Also on antibiotics for possible pneumonia. As noted the patient recently started Seroquel and had developed a cough the next morning. Again due to his mental status changes he was brought to the hospital. Vital signs are stable. General: Resting in bed. Confused. HEENT: Head exam is unremarkable. LUNGS: Breath sounds decreased. HEART: Irregular rate and rhythm. ABDOMEN: Soft, no distention. EXTREMITITES: No edema. Past Medical History Past Medical History: Asthma, Coronary Artery Disease (CAD), Cancer, Heart Failure, COPD, GERD/Reflux, Hearing Disorder / Deafness, Hyperlipidemia, Hypertension, Osteoarthritis (OA), Prostate Disorder, Renal Disease, Sleep Apnea/CPAP/BIPAP Additional Past Medical History / Comment(s): ESRD with hemodialysis on // at, anemia, BPH, bronchitis, chronic low back pain, ankylosing spondylosis, gout in ankles in past, concepcion's esophagus, colon polyp, hemorrhoids, behind L ear basal cell skin cancer with removal, L hand squamous cell skin cancer removal, JF with Bipap, bilateral tinnitis, CHF per 2017 medical record but pt does not recall. History of Any Multi-Drug Resistant Organisms: None Reported Past Surgical History: Appendectomy, Cholecystectomy, Heart Catheterization, Heart Catheterization With Stent, Hernia Repair Additional Past Surgical History / Comment(s): Fistula L arm, EGDs, colonoscopies, abdominal hernia repair, ivette fundoplication, ruptured gallbladder with christelle/appy and piece of bowel removed, hemorrhoidectomy, behind L ear lesion removed and another from L hand, bilateral cataract removals/lens implants. Past Anesthesia/Blood Transfusion Reactions: No Reported Reaction Additional Past Anesthesia/Blood Transfusion Reaction / Comment(s): . Date of Last Stent Placement:: 2003 Past Psychological History: No Psychological Hx Reported Smoking Status: Never smoker Past Alcohol Use History: None Reported Past Drug Use History: None Reported - Past Family History Mother Family Medical History: Cancer Additional Family Medical History / Comment(s): Mother at age 72 from BREAST CANCER Father Family Medical History: Myocardial Infarction ([place]) Additional Family Medical History / Comment(s): Father of a [place] at the age of 48 yrs. Sister(s) Family Medical History: Diabetes Mellitus Additional Family Medical History / Comment(s): Patient has one sister. Patient's son have any brothers. Patient has 2 children with no major medical problems. Medications and Allergies Home Medications Medication Instructions Recorded Confirmed Type Dutasteride [Avodart] 0.5 mg PO DAILY 11/11/14 06/04/22 History Montelukast [Singulair] 10 mg PO HS 11/11/14 06/04/22 History Beclomethasone Dipropionate [Qvar 2 puff INHALATION RT-BID 11/21/15 06/04/22 History 80 mcg/puff] Ergocalciferol [Vitamin D2 50,000 unit PO WE 11/21/15 06/04/22 History (DRISDOL)] Isosorbide Mononitrate ER [Imdur] 30 mg PO DAILY 11/21/15 06/04/22 History Torsemide [Demadex] 20 mg PO DAILY 11/21/15 06/04/22 History Febuxostat [Uloric] 80 mg PO DAILY 10/22/16 06/04/22 History Lansoprazole 30 mg PO BID 10/22/16 06/04/22 History Sevelamer [Renvela] 800 mg PO BID-W/MEALS 11/03/19 06/04/22 History Albuterol Inhaler [Ventolin Hfa 2 puff INHALATION RT-QID PRN 02/11/20 06/04/22 History Inhaler] Omalizumab [Xolair] 150 mg SQ Q28D 02/13/20 06/04/22 History Docusate Sodium [Dok] 100 mg PO BID 03/17/20 06/04/22 History Loratadine 10 mg PO HS 03/17/20 06/04/22 History Lidocaine-Prilocaine Cream [Emla 1 applic TOPICAL DIRECTED 06/13/21 06/04/22 History Cream 2.5%/2.5%] Nitroglycerin Sl Tabs [Nitrostat] 0.4 mg SUBLINGUAL Q5M PRN 06/13/21 06/04/22 History Renavite 1 tab PO HS 06/13/21 06/04/22 History Clopidogrel [Plavix] 75 mg PO DAILY tab 06/17/21 06/04/22 Rx Rivaroxaban [Xarelto] 15 mg PO W/SUPPER tab 06/17/21 06/04/22 Rx Atorvastatin Calcium [Lipitor] 10 mg PO MOWEFR@2100 06/04/22 06/04/22 History Budesonide [Pulmicort] 0.5 mg INHALATION RT-BID 06/04/22 06/04/22 History EPINEPHrine (Auto Inject) [Epipen] 0.3 mg PO ONCE PRN 06/04/22 06/04/22 History Metoprolol Tartrate [Lopressor] 50 mg PO BID 06/04/22 06/04/22 History Midodrine HCl [ProAmatine] 10 mg PO TID 06/04/22 06/04/22 History QUEtiapine [SEROquel] 12.5 mg PO HS 06/04/22 06/04/22 History Sevelamer [Renvela] 800 mg PO SUMOWEFR@1200 06/04/22 06/04/22 History guaiFENesin [Mucinex] 1,200 mg PO Q12H PRN 06/04/22 06/04/22 History Allergies Allergy/AdvReac Type Severity Reaction Status Date / Time diphenhydramine HCl AdvReac Confusion Verified 06/04/22 13:04 [From Junie] Physical Exam Vitals: Vital Signs Temp Pulse Pulse Resp BP BP Pulse Ox 06/05/22 08:13 87 06/05/22 07:56 99.1 F 101 H 22 142/87 93 L 06/05/22 03:27 99.5 F 98 18 143/96 94 L 06/05/22 02:00 108 H 18 06/05/22 00:00 102.3 F H 114 H 20 160/100 96 06/04/22 21:00 101.1 F H 141 H 20 174/89 86 L 06/04/22 20:12 101.4 F H 114 H 20 139/84 95 06/04/22 19:29 141 H 06/04/22 19:24 140 H 06/04/22 16:00 99.1 F 06/04/22 15:30 115 H 22 160/94 94 L 06/04/22 15:00 120 H 22 139/74 96 06/04/22 14:30 115 H 22 167/85 98 06/04/22 14:00 116 H 22 110/96 98 06/04/22 13:30 118 H 20 138/102 98 06/04/22 13:00 116 H 20 146/102 97 06/04/22 12:30 123 H 20 132/86 97 06/04/22 12:00 104 H 20 146/99 100 06/04/22 11:30 118 H 20 160/132 100 06/04/22 11:19 100.3 F H 120 H 22 143/100 100 Intake and Output 06/04/22 06/05/22 06/05/22 22:59 06:59 14:59 Intake Total 350 Output Total 100 Balance 350 -100 Intake: Intake, IV Titration 350 Amount Cefepime 2 gm In Sodium 100 Chloride 0.9% 100 ml @ 25 mls/hr IVPB Q8HR [facility] Rx# :[id number] Vancomycin 1,500 mg In 250 Sodium Chloride 0.9% 250 ml @ 125 mls/hr IVPB ONCE [facility] Rx#:[id number] Output: Urine 100 Other: Voiding Method Indwelling Catheter Indwelling Catheter Indwelling Catheter Weight 95.254 kg 87.5 kg Results - Lab Results Most recent lab results Calcium 9.3 mg/dL (8.4-10.2) 06/05/22 07:13 Magnesium 1.7 mg/dL (1.6-2.3) 06/04/22 11:08 06/05/22 07:13 06/05/22 07:13 Assessment and Plan Plan: Assessment: 1. End-stage renal disease maintained on hemodialysis on Thursday schedule. Patient has AV fistula. 2. Altered mental status. Possibly medication effect versus infection. 3. Chronic kidney disease mineral bone disease maintained on Renvela. 4. Fever. Possible pneumonia. On antibiotics. 5. A. fib with RVR maintained on Cardizem drip. 6. Chronic diastolic CHF. 7. Anemia of chronic kidney disease. Hemoglobin 10.1. 8. History of coronary artery disease. Plan: Currently seen while undergoing hemodialysis. Next treatment on Thursday. Follow-up cultures. Monitor vancomycin level. Target level near 15. Check phosphorus level. Thank you for the consultation. I will continue to follow patient with you during his hospital stay.
[2022-06-05] MEDS: PIPERACILLIN-TAZOBACTAM 3.375 GM in SODIUM CHLORIDE 0.9% 100 ML IVPB SCH ×2 (11:36→23:52)
--- NOTE | 2022-06-05 12:22 | P.CNPUL ---
History of Present Illness Consult date: 06/05/22 Requesting physician: Jyotsna Kovacs Reason for consult: hypoxemia, abnormal CXR/CT Chief complaint: Generalized weakness, hypoxemia History of present illness: This is a 68-year-old male patient currently a very poor historian recently discharged from [facility] 2 to 3 days ago who has a history of end-stage renal disease receiving hemodialysis Thursday's, anemia, congestive heart failure, chronic obstructive pulmonary disease, hearing disorder, hyperlipidemia, hypertension, osteoarthritis, obstructive sleep apnea with BiPAP coronary disease with previous stent placement. He was brought into the emergency room yesterday with weakness shortness of breath and was found to be hypoxemic with O2 saturation 87%. His is having difficulty taking care of him at home. Chest x-ray shows left perihilar and left lower lobe infiltrates as well as infiltrate of the right lung base and evidence of pulmonary vascular congestion. White count 15.4. Hemoglobin 10.1. Sodium 138. Potassium 5.3. BUN 42. Creatinine 7.05. Glucose 125. Pro-calcitonin 0.47. He's been initiated on bronchodilators, antibiotics in the form of vancomycin and Zosyn. He is anticoagulated with Xarelto. He is seen today in consultation on the selective care unit. He is currently resting in bed. He is arousable. Altered. Poor historian. Maintaining O2 saturations in the 90s on room air. Temperature 99.1 axillary. He is tachycardic. He is currently receiving hemodialysis. Review of Systems ROS unobtainable: due to mental status Past Medical History Past Medical History: Asthma, Coronary Artery Disease (CAD), Cancer, Heart Failure, COPD, GERD/Reflux, Hearing Disorder / Deafness, Hyperlipidemia, Hypertension, Osteoarthritis (OA), Prostate Disorder, Renal Disease, Sleep Apnea/CPAP/BIPAP Additional Past Medical History / Comment(s): ESRD with hemodialysis on //Thu, anemia, BPH, bronchitis, chronic low back pain, ankylosing spondylosis, gout in ankles in past, concepcion's esophagus, colon polyp, hemorrhoids, behind L ear basal cell skin cancer with removal, L hand squamous cell skin cancer removal, JF with Bipap, bilateral tinnitis, CHF per 2017 medical record but pt does not recall. History of Any Multi-Drug Resistant Organisms: None Reported Past Surgical History: Appendectomy, Cholecystectomy, Heart Catheterization, Heart Catheterization With Stent, Hernia Repair Additional Past Surgical History / Comment(s): Fistula L arm, EGDs, colonoscopies, abdominal hernia repair, ivette fundoplication, ruptured gallbladder with christelle/appy and piece of bowel removed, hemorrhoidectomy, behind L ear lesion removed and another from L hand, bilateral cataract removals/lens implants. Past Anesthesia/Blood Transfusion Reactions: No Reported Reaction Additional Past Anesthesia/Blood Transfusion Reaction / Comment(s): . Date of Last Stent Placement:: 2003 Past Psychological History: No Psychological Hx Reported Smoking Status: Never smoker Past Alcohol Use History: None Reported Past Drug Use History: None Reported - Past Family History Mother Family Medical History: Cancer Additional Family Medical History / Comment(s): Mother at age 72 from BREAST CANCER Father Family Medical History: Myocardial Infarction ([place]) Additional Family Medical History / Comment(s): Father of a [place] at the age of 48 yrs. Sister(s) Family Medical History: Diabetes Mellitus Additional Family Medical History / Comment(s): Patient has one sister. Patient's son have any brothers. Patient has 2 children with no major medical problems. Medications and Allergies Home Medications Medication Instructions Recorded Confirmed Type Dutasteride [Avodart] 0.5 mg PO DAILY 11/11/14 06/04/22 History Montelukast [Singulair] 10 mg PO HS 11/11/14 06/04/22 History Beclomethasone Dipropionate [Qvar 2 puff INHALATION RT-BID 11/21/15 06/04/22 History 80 mcg/puff] Ergocalciferol [Vitamin D2 50,000 unit PO WE 11/21/15 06/04/22 History (DRISDOL)] Isosorbide Mononitrate ER [Imdur] 30 mg PO DAILY 11/21/15 06/04/22 History Torsemide [Demadex] 20 mg PO DAILY 11/21/15 06/04/22 History Febuxostat [Uloric] 80 mg PO DAILY 10/22/16 06/04/22 History Lansoprazole 30 mg PO BID 10/22/16 06/04/22 History Sevelamer [Renvela] 800 mg PO BID-W/MEALS 11/03/19 06/04/22 History Albuterol Inhaler [Ventolin Hfa 2 puff INHALATION RT-QID PRN 02/11/20 06/04/22 History Inhaler] Omalizumab [Xolair] 150 mg SQ Q28D 02/13/20 06/04/22 History Docusate Sodium [Dok] 100 mg PO BID 03/17/20 06/04/22 History Loratadine 10 mg PO HS 03/17/20 06/04/22 History Lidocaine-Prilocaine Cream [Emla 1 applic TOPICAL DIRECTED 06/13/21 06/04/22 History Cream 2.5%/2.5%] Nitroglycerin Sl Tabs [Nitrostat] 0.4 mg SUBLINGUAL Q5M PRN 06/13/21 06/04/22 History Renavite 1 tab PO HS 06/13/21 06/04/22 History Clopidogrel [Plavix] 75 mg PO DAILY tab 06/17/21 06/04/22 Rx Rivaroxaban [Xarelto] 15 mg PO W/SUPPER tab 06/17/21 06/04/22 Rx Atorvastatin Calcium [Lipitor] 10 mg PO MOWEFR@2100 06/04/22 06/04/22 History Budesonide [Pulmicort] 0.5 mg INHALATION RT-BID 06/04/22 06/04/22 History EPINEPHrine (Auto Inject) [Epipen] 0.3 mg PO ONCE PRN 06/04/22 06/04/22 History Metoprolol Tartrate [Lopressor] 50 mg PO BID 06/04/22 06/04/22 History Midodrine HCl [ProAmatine] 10 mg PO TID 06/04/22 06/04/22 History QUEtiapine [SEROquel] 12.5 mg PO HS 06/04/22 06/04/22 History Sevelamer [Renvela] 800 mg PO SUMOWEFR@1200 06/04/22 06/04/22 History guaiFENesin [Mucinex] 1,200 mg PO Q12H PRN 06/04/22 06/04/22 History Allergies Allergy/AdvReac Type Severity Reaction Status Date / Time diphenhydramine HCl AdvReac Confusion Verified 06/04/22 13:04 [From Benadryl] Physical Exam Vitals: Vital Signs Temp Pulse Pulse Resp BP BP Pulse Ox 06/05/22 08:13 87 09/29/22 07:56 99.1 F 101 H 22 142/87 93 L 06/05/22 03:27 99.5 F 98 18 143/96 94 L 06/05/22 02:00 108 H 18 06/05/22 00:00 102.3 F H 114 H 20 160/100 96 06/04/22 21:00 101.1 F H 141 H 20 174/89 86 L 06/04/22 20:12 101.4 F H 114 H 20 139/84 95 06/04/22 19:29 141 H 06/04/22 19:24 140 H 06/04/22 16:00 99.1 F 06/04/22 15:30 115 H 22 160/94 94 L 06/04/22 15:00 120 H 22 139/74 96 06/04/22 14:30 115 H 22 167/85 98 06/04/22 14:00 116 H 22 110/96 98 06/04/22 13:30 118 H 20 138/102 98 06/04/22 13:00 116 H 20 146/102 97 06/04/22 12:30 123 H 20 132/86 97 Intake and Output 06/04/22 06/05/22 06/05/22 22:59 06:59 14:59 Intake Total 350 Output Total 100 Balance 350 -100 Intake: Intake, IV Titration 350 Amount Cefepime 2 gm In Sodium 100 Chloride 0.9% 100 ml @ 25 mls/hr IVPB Q8HR [facility] Rx# :[id number] Vancomycin 1,500 mg In 250 Sodium Chloride 0.9% 250 ml @ 125 mls/hr IVPB ONCE [facility] Rx#:[id number] Output: Urine 100 Other: Voiding Method Indwelling Catheter Indwelling Catheter Indwelling Catheter Weight 95.254 kg 87.5 kg GENERAL EXAM: Arousable, altered, 76-year-old male, on room air, comfortable in no apparent distress. HEAD: Normocephalic. EYES: Normal reaction of pupils, equal size. NOSE: Clear with pink turbinates. THROAT: No erythema or exudates. NECK: No masses, no JVD. CHEST: No chest wall deformity. LUNGS: Equal air entry with crackles in the bilateral bases. CVS: S1 and S2 normal with no audible murmur, regular rhythm. ABDOMEN: No hepatosplenomegaly, normal bowel sounds, no guarding or rigidity. SPINE: No scoliosis or deformity SKIN: No rashes CENTRAL NERVOUS SYSTEM: No focal deficits, tone is normal in all 4 extremities. EXTREMITIES: Left upper extremity fistula There is no peripheral edema. No clubbing, no cyanosis. Peripheral pulses are intact. Results - Laboratory Findings CBC and BMP: 06/05/22 07:13 06/05/22 07:13 PT/INR, D-dimer PT 14.5 sec (9.0-12.0) H 06/04/22 11:08 INR 1.4 (<1.2) H 06/04/22 11:08 Abnormal lab findings: Abnormal Labs 06/04/22 06/04/22 06/04/22 11:08 11:08 11:08 WBC 11.4 H RBC 3.41 L Hgb 10.4 L Hct 32.7 L RDW 16.5 H Neutrophils # 10.0 H Lymphocytes # 0.8 L PT 14.5 H INR 1.4 H Potassium Chloride BUN Creatinine Glucose POC Glucose (mg/dL) Plasma Lactic Acid Rock Total Bilirubin Procalcitonin Urine Protein 3+ H Urine Glucose (UA) Trace H Urine Bacteria Rare H Urine Mucus Rare H 06/04/22 06/04/22 06/04/22 11:08 11:08 13:54 WBC RBC Hgb Hct RDW Neutrophils # Lymphocytes # PT INR Potassium Chloride 96 L BUN 28 H Creatinine 5.49 H Glucose 166 H POC Glucose (mg/dL) Plasma Lactic Acid Rock 2.5 H* Total Bilirubin Procalcitonin 0.47 H Urine Protein Urine Glucose (UA) Urine Bacteria Urine Mucus 06/04/22 06/05/22 06/05/22 21:21 07:13 07:13 WBC 15.4 H RBC 3.39 L Hgb 10.1 L Hct 32.5 L RDW 16.2 H Neutrophils # Lymphocytes # PT INR Potassium 5.3 H Chloride BUN 42 H Creatinine 7.05 H* Glucose 125 H POC Glucose (mg/dL) 140 H Plasma Lactic Acid Rock Total Bilirubin 1.5 H Procalcitonin Urine Protein Urine Glucose (UA) Urine Bacteria Urine Mucus - Diagnostic Findings Chest x-ray: image reviewed Assessment and Plan Assessment: Generalized weakness, confusion of unclear etiology End-stage renal disease receiving hemodialysis Thursday. Currently receiving hemodialysis Recent admission to [facility] due to falls and weakness. Disc harged 2 days prior to arrival here Coronary disease with previous stent placement Hypertension Hyperlipidemia Hearing disorder Obstructive sleep apnea Concepcion's esophagus Nonsmoker Poor overall functional performance based on the above-mentioned multiple comorbidities Plan: The patient was seen and evaluated Chest x-ray and labs reviewed Currently receiving hemodialysis Continue antibiotics Anticoagulated with Xarelto We will continue to follow and make further recommendations based on his clinical status I have personally seen and examined the patient, performed the documentation and the assessment and plan as written. Number of minutes spent on the visit: 20.
--- NOTE | 2022-06-05 12:27 | CT ---
EXAMINATION TYPE: CT brain wo con DATE OF EXAM: 06/05/2022 COMPARISON: 06/17/2021 HISTORY: mental status change CT DLP: 1383.4 mGycm Automated exposure control for dose reduction was used. FINDINGS: Exam is nondiagnostic due to severe motion artifact. There does appear to be generalized degenerative changes or previous infarct involving the left frontal lobe. Calvarium nondiagnostic. IMPRESSION: NONDIAGNOSTIC EXAM DUE TO EXTREME ARTIFACT. CANNOT ASSESS FOR HEMORRHAGE OR ACUTE PROCESS. 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
--- NOTE | 2022-06-05 14:22 | P.PN ---
Subjective Progress Note Date: 06/05/22 HISTORY OF PRESENT ILLNESS This is a 76-year-old male patient with a previous medical history significant for hypertension and hypertensive cardiovascular disease, hyperlipidemia, end- stage renal disease on hemodialysis Thursday and Thursday, history of asthma/COPD, history of CAD post-PCI, history of ankylosing spondylitis, obstructive sleep apnea on a CPAP, CVA. Patient had CVA in June 2021 followed by a long stay at [facility] for subacute rehab. Patient was eventually discharged home and approximately January 2022 to live with his . She states that he did have 2 falls back in February but none in March and April, this month patient has had 5 falls requiring EMS to come and help her get him up. On Thursday and the morning she heard a crash and found him in the bathroom was jammed behind the door. He was able to pull himself up and denied having any pain or injury. Patient went back to bed and when he got for breakfast she heard that he had another fall but this time he had hit his head. EMS picked the patient brought him to [facility]. Patient apparently underwent a CAT scan of the head and neck which were negative. He was prepared for discharge home but he was scheduled for an EGD with Dr. Mendoza on Thursday which is done every 2 years due to Prabhakar's esophagus and it was decided the patient would stay and undergo EGD. The procedure was uneventful but patient had difficulty waking from anesthesia following. He ended up staying another day and was discharged home yesterday. Patient was apparently in his normal state of health and awake and alert when he came home was not having any issues at all. They had dinner together he watch some TV and went to bed around 10 PM. He was started on a new medication, Seroquel 12.5 mg at bedtime which she gave to him before bed. When patient woke up he was having significant cough around 5:45 in the morning. He was able go back to sleep until about 8 AM but she noticed a significant change in his mental status. His last hemodialysis was yesterday and usual schedule is Thursday. Patient was found have a temperature 100.3, heart rate documented at 120 [address] jonatan also at 150 with A. fib with RVR and was given metoprolol 5 mg IV push with improvement down to 110s to 120s for heart rate. Blood pressure initially 143/100, pulse ox 100% on 4 L nasal cannula. WBC 11.4, hemoglobin 10.4, platelet count 201. INR 1.4. Sodium 130, potassium 4.7, chloride 96, CO2 25, BUN 28 creatinine was 5.49. Blood sugar 166. Lactic acid 2.5. Magnesium 1.7. Total bilirubin 1.3, AST 19, ALT 12, alkaline phosphatase 94. Troponin 0.031. ProBNP 30,400. Albumin 3.7. Urinalysis was clear with nitrate and leukoesterase negative. Coronavirus PCR, influenza A, influenza B all were not detected. Lay catheter was placed as a urinalysis was required in the emergency center. Chest x-ray correlate for heart failure consider diffuse interstitial and alveolar pneumonia. Patient was started on cefepime, DuoNeb treatments, consults with pulmonary medicine and nephrology. 06/05: Patient is seen today on the [facility] floor, he continues to have significant mental status changes and not improved from yesterday. CAT scan of the brain without contrast ordered but was nondiagnostic. Patient has been seen by nephrology and undergoing hemodialysis today. Due to confusion and inability to concentrate, one dose of IV Ativan ordered. Patient has been seen by pulmonary medicine and cefepime transitioned to IV Zosyn. shelter monitor remains atrial fibrillation with controlled rate. Last evening, Cardizem drip was started at 5 mg per hour as heart rate was in the 180s and pulse ox dropped down to 86% and 2 L nasal cannula was applied. Today, patient is unable to take any of his oral medications due to his mental status. His temperature max has been 102.3, heart rate now at 87, blood pressure 142/87, pulse ox 93% on room air. Consult added for cardiology although heart rate is controlled at this time. Patient is continued on Cardizem drip due to inability to take oral medications. REVIEW OF SYSTEMS Constitutional: Reported fever, reported chills, no night sweats. No weight change. Reported weakness, reported fatigue reported lethargy. Reported daytime sleepiness. EENT: No headache. No blurred vision or double vision, no loss of vision. No loss of Hearing, no ringing in the ears, no dizziness. No nasal drainage or congestion. No epistaxis. No sore throat. Lungs: No shortness of breath, noted cough, no sputum production. No wheezing. Cardiovascular: No chest pain, no lower extremity edema. No palpitations. No paroxysmal nocturnal dyspnea. No orthopnea. No lightheadedness or dizziness. No syncopal episodes. Abdominal: No abdominal pain. No nausea, vomiting. No diarrhea. No constipation. No bloody or tarry stools.. No loss of appetite. Genitourinary: No dysuria, increased frequency, urgency. No urinary retention. Musculoskeletal: No myalgias. No muscle weakness, no gait dysfunction, no frequ ent falls. No back pain. No neck pain. Integumentary: No wounds, no lesions. No rash or pruritus. No unusual bruising. No change in hair or nails. Neurologic: Reported aphasia. No facial droop. Noted change in mentation. No head injury. No headache. No paralysis. No paresthesia. Psychiatric: No depression. No anxiety. No mood swings. Endocrine: No abnormal blood sugars. No weight change. No excessive sweating or thirst. No cold intolerance. PHYSICAL EXAMINATION Gen: This is a 75-year-old obese occasion male. He is resting in bed and appears to be in no acute distress. HEENT: Head is atraumatic, normocephalic. Pupils equal, round. Sclerae is anicteric. NECK: Supple. No JVD. No lymphadenopathy. No thyromegaly. LUNGS: Decreased breath sounds at the bases. No crackles, no wheezes. No intercostal retractions. HEART: First heart sound is depressed, second heart sound is normal, there is systolic ejection murmur 2/6 located in the left sternal border. Tachycardic and irregular. ABDOMEN: Soft. Bowel sounds are present. No masses. No tenderness. Lay catheter in place with small amount of urine output. EXTREMITIES: No pedal edema. No calf tenderness. Dorsalis pedis +1 bilaterally. NEUROLOGICAL: Patient opens his eyes minimally to verbal stimuli, unable to answer questions or follow commands. ASSESSMENT AND PLAN 1. Metabolic encephalopathy secondary to aspiration pneumonia. 2. Acute hypoxic respiratory failure secondary to A. fib with RVR and aspiration pneumonia. Patient was started on Cardizem drip, oxygen therapy. 3. Aspiration pneumonia and sepsis. Patient started on cefepime and transitioned to Zosyn, DuoNeb treatments every 4 hours as needed, consult with pulmonary medicine appreciated. 4. Lactic acidosis secondary to pneumonia. Continue treatment as a #2. 5. Atrial fibrillation with RVR, paroxysmal atrial fibrillation, status post IV Lopressor. Patient was started on Cardizem IV drip on the evening of 06/04. Patient is unable to take his oral medications: Lopressor 50 mg twice daily, Xarelto 15 mg daily at supper. Consult with cardiology. 6. Acute on chronic diastolic heart failure. Patient unable to take oral medications: Demadex 20 mg daily, Lopressor, Renvela 800 mg twice daily and 800 mg on Thursday at noon. 6. History of CVA. Patient unable to take oral medications: atorvastatin 10 mg Thursday. 7. End-stage renal disease on hemodialysis. Consult with nephrology appreciated. Patient undergoing hemodialysis today. 8. Hypertension, hypertensive cardiovascular disease. Patient unable to take oral medication: felodipine 10 mg Thursday and Thursday, Lopressor, Imdur 9. Hyperlipidemia. Continue atorvastatin. 10. History of coronary artery disease status post PCI. Patient unable to take oral medication: Imdur 30 mg daily, aspirin, Lipitor, continue Lopressor 100 mg at bedtime. 11. Moderate intermittent asthma, stable. Continue Pulmicort 0.5 mg twice daily, Mucinex 1200 mg oral every 12 hours as needed for cough, DuoNeb treatments. 12. Benign prostatic hypertrophy. Lay was placed in the emergency center for a urine specimen. 13. Gastroesophageal reflux disease. Continue PPI. 14. DVT prophylaxis. Xarelto DISCHARGE PLAN To be determined. Most likely subacute rehab at [facility]. Social work consult. Impression and plan of care have been directed as dictated by the signing physician. Missy Manzano nurse practitioner acting as scribe for signing physician. Objective - Vital Signs Vital signs: Vital Signs Temp 99.1 F 06/05/22 07:56 Pulse 87 06/05/22 08:13 Resp 22 06/05/22 07:56 BP 142/87 06/05/22 07:56 Pulse Ox 93 L 06/05/22 07:56 FiO2 Intake & Output 06/04/22 06/05/22 06/05/22 18:59 06:59 18:59 Intake Total 350 Output Total 100 Balance 250 Weight 95.254 kg 87.5 kg Intake: Intake, IV Titration 350 Amount Cefepime 2 gm In Sodium 100 Chloride 0.9% 100 ml @ 25 mls/hr IVPB Q8HR [facility] Rx# :[id number] Vancomycin 1,500 mg In 250 Sodium Chloride 0.9% 250 ml @ 125 mls/hr IVPB ONCE ST[facility] Rx#:[id number] Output: Urine 100 Other: Voiding Method Indwelling Catheter Indwelling Catheter - Labs CBC & Chem 7: 06/05/22 07:13 06/05/22 07:13 Labs: Abnormal Lab Results - Last 24 Hours (Table) 06/04/22 06/04/22 06/04/22 Range/Units 11:08 11:08 11:08 WBC 11.4 H (3.8-10.6) k/uL RBC 3.41 L (4.30-5.90) m/uL Hgb 10.4 L (13.0-17.5) gm/dL Hct 32.7 L (39.0-53.0) % RDW 16.5 H (11.5-15.5) % Neutrophils # 10.0 H (1.3-7.7) k/uL Lymphocytes # 0.8 L (1.0-4.8) k/uL PT 14.5 H (9.0-12.0) sec INR 1.4 H (<1.2) Potassium (3.5-5.1) mmol/L Chloride (98-107) mmol/L BUN (9-20) mg/dL Creatinine (0.66-1.25) mg/dL Glucose (74-99) mg/dL POC Glucose (mg/dL) (70-110) mg/dL Plasma Lactic Acid Rock (0.7-2.0) mmol/L Total Bilirubin (0.2-1.3) mg/dL Procalcitonin (0.02-0.09) ng/mL Urine Protein 3+ H (Negative) Urine Glucose (UA) Trace H (Negative) Urine Bacteria Rare H (None) /hpf Urine Mucus Rare H (None) /hpf 06/04/22 06/04/22 06/04/22 Range/Units 11:08 11:08 13:54 WBC (3.8-10.6) k/uL RBC (4.30-5.90) m/uL Hgb (13.0-17.5) gm/dL Hct (39.0-53.0) % RDW (11.5-15.5) % Neutrophils # (1.3-7.7) k/uL Lymphocytes # (1.0-4.8) k/uL PT (9.0-12.0) sec INR (<1.2) Potassium (3.5-5.1) mmol/L Chloride 96 L (98-107) mmol/L BUN 28 H (9-20) mg/dL Creatinine 5.49 H (0.66-1.25) mg/dL Glucose 166 H (74-99) mg/dL POC Glucose (mg/dL) (70-110) mg/dL Plasma Lactic Acid Rock 2.5 H* (0.7-2.0) mmol/L Total Bilirubin (0.2-1.3) mg/dL Procalcitonin 0.47 H (0.02-0.09) ng/mL Urine Protein (Negative) Urine Glucose (UA) (Negative) Urine Bacteria (None) /hpf Urine Mucus (None) /hpf 06/04/22 06/05/22 06/05/22 Range/Units 21:21 07:13 07:13 WBC 15.4 H (3.8-10.6) k/uL RBC 3.39 L (4.30-5.90) m/uL Hgb 10.1 L (13.0-17.5) gm/dL Hct 32.5 L (39.0-53.0) % RDW 16.2 H (11.5-15.5) % Neutrophils # (1.3-7.7) k/uL Lymphocytes # (1.0-4.8) k/uL PT (9.0-12.0) sec INR (<1.2) Potassium 5.3 H (3.5-5.1) mmol/L Chloride (98-107) mmol/L BUN 42 H (9-20) mg/dL Creatinine 7.05 H* (0.66-1.25) mg/dL Glucose 125 H (74-99) mg/dL POC Glucose (mg/dL) 140 H (70-110) mg/dL Plasma Lactic Acid Rock (0.7-2.0) mmol/L Total Bilirubin 1.5 H (0.2-1.3) mg/dL Procalcitonin (0.02-0.09) ng/mL Urine Protein (Negative) Urine Glucose (UA) (Negative) Urine Bacteria (None) /hpf Urine Mucus (None) /hpf
[2022-06-05] MEDS: RIVAROXABAN 15 MG TAB PO SCH (15:57)
[2022-06-05] MEDS: SODIUM CHLORIDE 0.9% 1,000 ML IV SCH (15:58)
[2022-06-05] MEDS ORDERED: CEFEPIME 1 GM in SODIUM CHLORIDE 0.9% 50 ML IVPB SCH (16:00)
[2022-06-05] MEDS: DILTIAZEM 125 MG in SODIUM CHLORIDE 0.9% 100 ML IV SCH (16:01)
--- NOTE | 2022-06-05 16:29 | P.CNNES ---
History of Present Illness Consult date: 06/05/22 Requesting physician: Missy Manzano Reason for Consult: mental status change,falls History of Present Illness: This is a 76-year-old gentleman with history of left frontal ischemic stroke in June 2021 with the speech difficulty, atrial fibrillation on Xarelto end- stage renal disease on dialysis, hypertension, hyperlipidemia, congestive heart failure who presented emergency department because of altered mental status. History is obtained from medical record and the patient's nurse. It seems the patient the has been having significant cough and that when the tried to wake him up he was a confused. The patient has been having shortness of breath found to have hypoxemic with oxygen saturation 87 and the having difficulty taking care of him. It seems that the patient has been having recurrent falls in February and April. He was recently discharged from [facility] about 2-3 days prior to presenting to our facility. This seems that he had a CAT scan of the head and neck at the outside facility and was reported as negative. According to the nurse the patient was moving all extremities without any focal deficit when they're trying to get in for dialysis today. There is no jerk in of any extremities and that patient is able to open his eyes and there is no fixed gaze deviation to the nurse. He presented to our facility with a temperature of 100.3 and the T-max was 102.3 Fahrenheit. He also presented with a white blood cells 11.4 and a got as high as 15.4 thousand. Slightly neutrophilic. In his sodium currently is up 7.05 patient had a chest x-ray on 06/05/2022 and it's reported as increasing infiltrate left perihilar and left lower lobe as well as right lung base likely in the bases of pneumonia. There is mild superimposed pulmonary venous congestion He had a CT of the head on 06/05/2022 which is reported as nondiagnostic exam due to extreme artifact. Cannot assess for hemorrhage or acute process. Suggestion of degenerative change and remote left frontal infarct. I personally reviewed that the CT and I agree there is a lot of motion artifact but I was able to appreciate the left frontal old stroke. Of Note the patient is known to our neurology service in which she had the the stroke on the March 2021 and had a stroke over the left frontal region. Please refer to our notes for further details. Other workup during this hospital visit consisted of Pereira virus PCR was not detected Influenza A and B PCR was not detected Review of Systems Review of system is limited by the prone positive and negative as per HPI Past Medical History Past Medical History: Asthma, Coronary Artery Disease (CAD), Cancer, Heart Failure, COPD, GERD/Reflux, Hearing Disorder / Deafness, Hyperlipidemia, Hypertension, Osteoarthritis (OA), Prostate Disorder, Renal Disease, Sleep Apnea/CPAP/BIPAP Additional Past Medical History / Comment(s): ESRD with hemodialysis on //Thu, anemia, BPH, bronchitis, chronic low back pain, ankylosing spondylosis, gout in ankles in past, concepcion's esophagus, colon polyp, hemorrhoids, behind L ear basal cell skin cancer with removal, L hand squamous cell skin cancer removal, JF with Bipap, bilateral tinnitis, CHF per 2017 medical record but pt does not recall. History of Any Multi-Drug Resistant Organisms: None Reported Past Surgical History: Appendectomy, Cholecystectomy, Heart Catheterization, Heart Catheterization With Stent, Hernia Repair Additional Past Surgical History / Comment(s): Fistula L arm, EGDs, colonoscopies, abdominal hernia repair, ivette fundoplication, ruptured gallbladder with christelle/appy and piece of bowel removed, hemorrhoidectomy, behind L ear lesion removed and another from L hand, bilateral cataract removals/lens implants. Past Anesthesia/Blood Transfusion Reactions: No Reported Reaction Additional Past Anesthesia/Blood Transfusion Reaction / Comment(s): . Date of Last Stent Placement:: 2003 Past Psychological History: No Psychological Hx Reported Smoking Status: Never smoker Past Alcohol Use History: None Reported Past Drug Use History: None Reported - Past Family History Mother Family Medical History: Cancer Additional Family Medical History / Comment(s): Mother at age 72 from BREAST CANCER Father Family Medical History: Myocardial Infarction (NM) Additional Family Medical History / Comment(s): Father of a NM at the age of 48 yrs. Sister(s) Family Medical History: Diabetes Mellitus Additional Family Medical History / Comment(s): Patient has one sister. Patient's son have any brothers. Patient has 2 children with no major medical problems. Medications and Allergies Home Medications Medication Instructions Recorded Confirmed Type Dutasteride [Avodart] 0.5 mg PO DAILY 11/11/14 06/04/22 History Montelukast [Singulair] 10 mg PO HS 11/11/14 06/04/22 History Beclomethasone Dipropionate [Qvar 2 puff INHALATION RT-BID 11/21/15 06/04/22 History 80 mcg/puff] Ergocalciferol [Vitamin D2 50,000 unit PO WE 11/21/15 06/04/22 History (DRISDOL)] Isosorbide Mononitrate ER [Imdur] 30 mg PO DAILY 11/21/15 06/04/22 History Torsemide [Demadex] 20 mg PO DAILY 11/21/15 06/04/22 History Febuxostat [Uloric] 80 mg PO DAILY 10/22/16 06/04/22 History Lansoprazole 30 mg PO BID 10/22/16 06/04/22 History Sevelamer [Renvela] 800 mg PO BID-W/MEALS 11/03/19 06/04/22 History Albuterol Inhaler [Ventolin Hfa 2 puff INHALATION RT-QID PRN 02/11/20 06/04/22 History Inhaler] Omalizumab [Xolair] 150 mg SQ Q28D 02/13/20 06/04/22 History Docusate Sodium [Dok] 100 mg PO BID 03/17/20 06/04/22 History Loratadine 10 mg PO HS 03/17/20 06/04/22 History Lidocaine-Prilocaine Cream [Emla 1 applic TOPICAL DIRECTED 06/13/21 06/04/22 History Cream 2.5%/2.5%] Nitroglycerin Sl Tabs [Nitrostat] 0.4 mg SUBLINGUAL Q5M PRN 06/13/21 06/04/22 History Renavite 1 tab PO HS 06/13/21 06/04/22 History Clopidogrel [Plavix] 75 mg PO DAILY tab 06/17/21 06/04/22 Rx Rivaroxaban [Xarelto] 15 mg PO W/SUPPER tab 06/17/21 06/04/22 Rx Atorvastatin Calcium [Lipitor] 10 mg PO MOWEFR@2100 06/04/22 06/04/22 History Budesonide [Pulmicort] 0.5 mg INHALATION RT-BID 06/04/22 06/04/22 History EPINEPHrine (Auto Inject) [Epipen] 0.3 mg PO ONCE PRN 06/04/22 06/04/22 History Metoprolol Tartrate [Lopressor] 50 mg PO BID 06/04/22 06/04/22 History Midodrine HCl [ProAmatine] 10 mg PO TID 06/04/22 06/04/22 History QUEtiapine [SEROquel] 12.5 mg PO HS 06/04/22 06/04/22 History Sevelamer [Renvela] 800 mg PO SUMOWEFR@1200 06/04/22 06/04/22 History guaiFENesin [Mucinex] 1,200 mg PO Q12H PRN 06/04/22 06/04/22 History Allergies Allergy/AdvReac Type Severity Reaction Status Date / Time diphenhydramine HCl AdvReac Confusion Verified 06/04/22 13:04 [From Junie] Physical Examination - Vital Signs Vital Signs: Vital Signs Temp Pulse Pulse Resp BP BP Pulse Ox 06/05/22 16:00 100.4 F H 99 16 179/71 93 L 06/05/22 12:00 99.1 F 105 H 17 123/80 94 L 06/05/22 08:13 87 06/05/22 07:56 99.1 F 101 H 22 142/87 93 L 06/05/22 03:27 99.5 F 98 18 143/96 94 L 06/05/22 02:00 108 H 18 06/05/22 00:00 102.3 F H 114 H 20 160/100 96 06/04/22 21:00 101.1 F H 141 H 20 174/89 86 L 06/04/22 20:12 101.4 F H 114 H 20 139/84 95 06/04/22 19:29 141 H 06/04/22 19:24 140 H Intake and Output 06/05/22 06/05/22 06/05/22 06:59 14:59 22:59 Intake Total 90.667 Output Total 100 50 Balance -100 -50 90.667 Intake: Intake, IV Titration 90.667 Amount Diltiazem 125 mg In 90.667 Sodium Chloride 0.9% 100 ml @ 5 MG/HR 5 mls/hr IV .Q24H [facility] Rx#:[id number] Output: Urine 100 50 Other: Voiding Method Indwelling Catheter Indwelling Catheter # Bowel Movements 0 Weight 87.5 kg GENERAL: The patient is lying in bed and does not appear in acute distress. CHEST: The heart rate is regular rate rhythm. No murmurs to auscultation. LUNG: Clear to auscultation bilaterally no wheezing noted throughout. Not labored breathing. ABDOMEN/GI: Bowel sounds present in all 4 quadrants. No tenderness to palpation throughout. NEUROLOGICAL: Higher mental function: The patient is severely drowsy and briefly opens his eyes to voice. Not following commands or verbally responsive. Cranial nerves: The pupils are round, equal and reactive to light. Primary gaze is midline. No facial weakness. Is mute and rest of cranial nerves is limited. Motor: The strength is hard to assess because of coperation. But spontanously lifts the right upper extremity and scratched his facet. Normal tone and bulk. Cerebellum: Unable to assess. Sensation: Unable to assess. Reflexes (right/left):1+ throughout. Plantars are mute bilaterally. Results - Laboratory Findings CBC and BMP: 06/05/22 07:13 06/05/22 07:13 Abnormal Lab Findings: Abnormal Labs 06/04/22 06/04/22 06/04/22 11:08 11:08 11:08 WBC 11.4 H RBC 3.41 L Hgb 10.4 L Hct 32.7 L RDW 16.5 H Neutrophils # 10.0 H Lymphocytes # 0.8 L PT 14.5 H INR 1.4 H Potassium Chloride BUN Creatinine Glucose POC Glucose (mg/dL) Plasma Lactic Acid Rock Total Bilirubin Procalcitonin Urine Protein 3+ H Urine Glucose (UA) Trace H Urine Bacteria Rare H Urine Mucus Rare H 06/04/22 06/04/22 06/04/22 11:08 11:08 13:54 WBC RBC Hgb Hct RDW Neutrophils # Lymphocytes # PT INR Potassium Chloride 96 L BUN 28 H Creatinine 5.49 H Glucose 166 H POC Glucose (mg/dL) Plasma Lactic Acid Rock 2.5 H* Total Bilirubin Procalcitonin 0.47 H Urine Protein Urine Glucose (UA) Urine Bacteria Urine Mucus 06/04/22 06/05/22 06/05/22 21:21 07:13 07:13 WBC 15.4 H RBC 3.39 L Hgb 10.1 L Hct 32.5 L RDW 16.2 H Neutrophils # Lymphocytes # PT INR Potassium 5.3 H Chloride BUN 42 H Creatinine 7.05 H* Glucose 125 H POC Glucose (mg/dL) 140 H Plasma Lactic Acid Rock Total Bilirubin 1.5 H Procalcitonin Urine Protein Urine Glucose (UA) Urine Bacteria Urine Mucus Assessment and Plan Assessment: This is a 76-year-old gentleman who presented because of cough, reported hypoxia and confusion. He had elevated fever or leukocytosis. He's been having recurrent falls at home Altered mental status: encephalopathy of unknown etiology. Possible aspiration pneumonia. Recurrent falls of unknown etiology History of atrial fibrillation on Xarelto History of stroke over the left frontal on June 2021 with speech difficulty End-stage renal disease on dialysis Plan: I ordered a routine EEG. I consulted anesthesiology team for CSF study which cannot be done in the early since the patient's is on Xarelto. In the meantime I start the patient on ceftriaxone 2 g every 12 hour as an empiric for meningitis which I feel possibly low. We'll get repeat CT of the head tomorrow. Per nurse, patient cannot have MRI since unable to stay still (even in the past). Consulted the ID team. I'll defer the medication modification to the ID team in the primary team. The patient is on vancomycin Ordered ammonia level, TSH with free T4. Pulmonary team is consulted Nephrology team is on board We'll defer the rest of the medical management to primary team The plan was discussed with the patient nurse Thank you for the consultation. Alexander Beck M.D. Neuro-hospitalist Time with Patient: Greater than 30
[2022-06-05] MEDS ORDERED: VANCOMYCIN 1,500 MG in SODIUM CHLORIDE 0.9% 250 ML IVPB ONE (18:00)
[2022-06-05] MEDS: MONTELUKAST 10 MG TAB PO SCH (20:23)
[2022-06-05] MEDS: MULTIVITAMINS, THERA 1 EACH TAB PO SCH (20:23)
[2022-06-05] MEDS: LORATADINE 10 MG TAB PO SCH (20:23)
--- NOTE | 2022-06-05 23:47 | P.CONS ---
History of Present Illness - Reason for Consult Consult date: 06/05/22 Fever, AMS Requesting physician: Alexander Beck - Chief Complaint Confusion and weakness x few days - History of Present Illness Patient is a 76-year-old male with a past medical history significant for end-stage renal disease on hemodialysis Thursday with recent admission at [facility] for a fall patient did have CT of the head and neck was negative and also underwent EGD was discharged from the hospital patient seem to be getting more weaker confused and did have a fever for which the patient was brought to this facility yesterday morning on arrival to the ER the patient did have a low-grade fever 100.3 F and subsequently did spike a fever at midnight of 102.3 F patient is currently breathing comfortably on room air however did have some episode of hypoxemia last night patient did have a white count of 11 point 4 repeat is 15.4 with a left shift elevated BUN/creatinine liver exams are normal blood gases elevated urine has been negative influenza and COVID testing has been negative blood cultures so far negative patient did have a chest x-ray increasing infiltrate left perihilar and left lower lobe right lung base concerning for pneumonia patient is currently being treated with vancomycin and Zosyn with consult infectious diseases because of the fever most information has been obtained from review the chart and talking to nursing staff and the patient was not able to provide any history Review of Systems Positive points has been mentioned in HPI complete review could not be obtained because of his underlying mental status Past Medical History Past Medical History: Asthma, Coronary Artery Disease (CAD), Cancer, Heart Failure, COPD, GERD/Reflux, Hearing Disorder / Deafness, Hyperlipidemia, Hypertension, Osteoarthritis (OA), Prostate Disorder, Renal Disease, Sleep Apnea/CPAP/BIPAP Additional Past Medical History / Comment(s): ESRD with hemodialysis on /Thu, anemia, BPH, bronchitis, chronic low back pain, ankylosing spondylosis, gout in ankles in past, concepcion's esophagus, colon polyp, hemorrhoids, behind L ear basal cell skin cancer with removal, L hand squamous cell skin cancer removal, JF with Bipap, bilateral tinnitis, CHF per 2017 medical record but pt does not recall. History of Any Multi-Drug Resistant Organisms: None Reported Past Surgical History: Appendectomy, Cholecystectomy, Heart Catheterization, Heart Catheterization With Stent, Hernia Repair Additional Past Surgical History / Comment(s): Fistula L arm, EGDs, colonoscopies, abdominal hernia repair, ivette fundoplication, ruptured gallbladder with christelle/appy and piece of bowel removed, hemorrhoidectomy, behind L ear lesion removed and another from L hand, bilateral cataract removals/lens implants. Past Anesthesia/Blood Transfusion Reactions: No Reported Reaction Additional Past Anesthesia/Blood Transfusion Reaction / Comm: . Date of Last Stent Placement:: 2003 Past Psychological History: No Psychological Hx Reported Smoking Status: Never smoker Past Alcohol Use History: None Reported Past Drug Use History: None Reported - Past Family History Mother Family Medical History: Cancer Additional Family Medical History / Comment(s): Mother at age 72 from BREAST CANCER Father Family Medical History: Myocardial Infarction (ND) Additional Family Medical History / Comment(s): Father of a ND at the age of 48 yrs. Sister(s) Family Medical History: Diabetes Mellitus Additional Family Medical History / Comment(s): Patient has one sister. Patient's son have any brothers. Patient has 2 children with no major medical problems. Medications and Allergies Home Medications Medication Instructions Recorded Confirmed Type Dutasteride [Avodart] 0.5 mg PO DAILY 11/11/14 06/04/22 History Montelukast [Singulair] 10 mg PO HS 11/11/14 06/04/22 History Beclomethasone Dipropionate [Qvar 2 puff INHALATION RT-BID 11/21/15 06/04/22 History 80 mcg/puff] Ergocalciferol [Vitamin D2 50,000 unit PO WE 11/21/15 06/04/22 History (DRISDOL)] Isosorbide Mononitrate ER [Imdur] 30 mg PO DAILY 11/21/15 06/04/22 History Torsemide [Demadex] 20 mg PO DAILY 11/21/15 06/04/22 History Febuxostat [Uloric] 80 mg PO DAILY 10/22/16 06/04/22 History Lansoprazole 30 mg PO BID 10/22/16 06/04/22 History Sevelamer [Renvela] 800 mg PO BID-W/MEALS 11/03/19 06/04/22 History Albuterol Inhaler [Ventolin Hfa 2 puff INHALATION RT-QID PRN 02/11/20 06/04/22 History Inhaler] Omalizumab [Xolair] 150 mg SQ Q28D 02/13/20 06/04/22 History Docusate Sodium [Dok] 100 mg PO BID 03/17/20 06/04/22 History Loratadine 10 mg PO HS 03/17/20 06/04/22 History Lidocaine-Prilocaine Cream [Emla 1 applic TOPICAL DIRECTED 06/13/21 06/04/22 History Cream 2.5%/2.5%] Nitroglycerin Sl Tabs [Nitrostat] 0.4 mg SUBLINGUAL Q5M PRN 06/13/21 06/04/22 History Renavite 1 tab PO HS 06/13/21 06/04/22 History Clopidogrel [Plavix] 75 mg PO DAILY tab 06/17/21 06/04/22 Rx Rivaroxaban [Xarelto] 15 mg PO W/SUPPER tab 06/17/21 06/04/22 Rx Atorvastatin Calcium [Lipitor] 10 mg PO MOWEFR@2100 06/04/22 06/04/22 History Budesonide [Pulmicort] 0.5 mg INHALATION RT-BID 06/04/22 06/04/22 History EPINEPHrine (Auto Inject) [Epipen] 0.3 mg PO ONCE PRN 06/04/22 06/04/22 History Metoprolol Tartrate [Lopressor] 50 mg PO BID 06/04/22 06/04/22 History Midodrine HCl [ProAmatine] 10 mg PO TID 06/04/22 06/04/22 History QUEtiapine [SEROquel] 12.5 mg PO HS 06/04/22 06/04/22 History Sevelamer [Renvela] 800 mg PO SUMOWEFR@1200 06/04/22 06/04/22 History guaiFENesin [Mucinex] 1,200 mg PO Q12H PRN 06/04/22 06/04/22 History Allergies Allergy/AdvReac Type Severity Reaction Status Date / Time diphenhydramine HCl AdvReac Confusion Verified 06/04/22 13:04 [From Benadryl] Physical Exam Vitals: Vital Signs Temp Pulse Pulse Resp BP BP Pulse Ox 06/05/22 16:36 97.8 F 89 19 141/81 06/05/22 16:00 100.4 F H 99 16 179/71 93 L 06/05/22 12:00 99.1 F 105 H 17 123/80 94 L 06/05/22 08:13 87 06/05/22 07:56 99.1 F 101 H 22 142/87 93 L 06/05/22 03:27 99.5 F 98 18 143/96 94 L 06/05/22 02:00 108 H 18 06/05/22 00:00 102.3 F H 114 H 20 160/100 96 06/04/22 21:00 101.1 F H 141 H 20 174/89 86 L 06/04/22 20:12 101.4 F H 114 H 20 139/84 95 06/04/22 19:29 141 H 06/04/22 19:24 140 H Intake and Output 06/05/22 06/05/22 06/05/22 06:59 14:59 22:59 Intake Total 390.667 Output Total 091 85 1784 Balance -100 50 -1909.333 Intake: Intake, IV Titration 90.667 Amount Diltiazem 125 mg In 90.667 Sodium Chloride 0.9% 100 ml @ 5 MG/HR 5 mls/hr IV .Q24H [facility] Rx#:[id number] Hemodialysis 300 Output: Urine 100 50 Hemodialysis 2300 Other: Voiding Method Indwelling Catheter Indwelling Catheter # Bowel Movements 0 Weight 87.5 kg GENERAL DESCRIPTION: Elderly male lying in bed, no distress. No tachypnea or accessory muscle of respiration use. HEENT: Shows Pallor , no scleral icterus. Oral mucous membrane is dry. NECK: Trachea central, no thyromegaly. LUNGS: Unlabored breathing. Decreased breath sound the bases HEART: S1, S2, regular rate and rhythm. No loud murmur ABDOMEN: Soft, no tenderness , guarding or rigidity, no organomegaly EXTREMITIES: No edema of feet. SKIN: No rash, no masses palpable. NEUROLOGICAL: The patient is sleepy and lethargic orientation could not be determined Results CBC & Chem 7: 06/05/22 07:13 06/06/22 09:17 Labs: Abnormal Lab Results - Last 24 Hours (Table) 06/04/22 06/04/22 06/05/22 Range/Units 13:54 21:21 07:13 WBC 15.4 H (3.8-10.6) k/uL RBC 3.39 L (4.30-5.90) m/uL Hgb 10.1 L (13.0-17.5) gm/dL Hct 32.5 L (39.0-53.0) % RDW 16.2 H (11.5-15.5) % Potassium (3.5-5.1) mmol/L BUN (9-20) mg/dL Creatinine (0.66-1.25) mg/dL Glucose (74-99) mg/dL POC Glucose (mg/dL) 140 H (70-110) mg/dL Total Bilirubin (0.2-1.3) mg/dL Procalcitonin 0.47 H (0.02-0.09) ng/mL 06/05/22 06/05/22 Range/Units 07:13 07:13 WBC (3.8-10.6) k/uL RBC (4.30-5.90) m/uL Hgb (13.0-17.5) gm/dL Hct (39.0-53.0) % RDW (11.5-15.5) % Potassium 5.3 H (3.5-5.1) mmol/L BUN 42 H (9-20) mg/dL Creatinine 7.05 H* (0.66-1.25) mg/dL Glucose 125 H (74-99) mg/dL POC Glucose (mg/dL) (70-110) mg/dL Total Bilirubin 1.5 H (0.2-1.3) mg/dL Procalcitonin 0.47 H (0.02-0.09) ng/mL Microbiology - Last 24 Hours (Table) 06/04/22 11:08 Blood Culture - Preliminary Blood No Growth after 24 hours 06/04/22 11:08 Blood Culture - Preliminary Blood No Growth after 24 hours Assessment and Plan (1) Aspiration pneumonia Current Visit: Yes Status: Acute Code(s): J69.0 - PNEUMONITIS DUE TO INHALATION OF FOOD AND VOMIT SNOMED Code(s): 318928399 (2) Febrile illness, acute Current Visit: Yes Status: Acute Code(s): R50.9 - FEVER, UNSPECIFIED SNOMED Code(s): 442157044 Plan: 1patient presented to hospital with sepsis and respiratory have fever elevated white count with evidence of increasing infiltrate on the left side chest x-ray with concern for possible aspiration pneumonia likely from enteric gram-negative pathogen and less likely gram-positive however the patient did have significant mental status changes and underlying encephalitis need to rule out 2-we will wait for the LP/CSF examination 3-continue the vancomycin and Zosyn while waiting for the culture to finalize We will follow on clinical condition and cultures to further adjust medication if needed Thank you for this consultation will follow this patient along with you Time with Patient: Greater than 30
[2022-06-06] MEDS: SEVELAMER 800 MG TAB PO SCH ×3 (06:19→15:44)
[2022-06-06] MEDS: BUDESONIDE 0.5 MG/2 ML NEBU INHALATION SCH ×2 (08:22→19:58)
[2022-06-06] MEDS: METOPROLOL TARTRATE 50 MG TAB PO SCH ×2 (09:23→20:53)
[2022-06-06] MEDS: TORSEMIDE 20 MG TAB PO SCH (09:24)
[2022-06-06] MEDS: PANTOPRAZOLE 40 MG TABLET PO SCH ×2 (09:24→20:53)
[2022-06-06] MEDS: FINASTERIDE 5 MG TAB PO SCH (09:24)
[2022-06-06] MEDS: allopurinoL 100 MG TAB PO SCH (09:24)
[2022-06-06] MEDS: ISOSORBIDE MONONITRATE ER 30 MG TAB.ER.24H PO SCH (09:24)
[2022-06-06] MEDS: DOCUSATE 100 MG CAP PO SCH ×2 (09:24→20:53)
[2022-06-06] MEDS: CLOPIDOGREL 75 MG TAB PO SCH (09:25)
--- NOTE | 2022-06-06 09:51 | P.PN ---
Subjective Patient is seen in follow-up for end-stage renal disease. He is maintained on hemodialysis on Thursday schedule. Completed dialysis yesterday with goal 2 L of hydration. Hemodynamically stable. Mentation improved. On room air. Vital signs are stable. General: Awake. No acute distress. HEENT: Head exam is unremarkable. LUNGS: Breath sounds decreased. HEART: Rate and Rhythm are regular. ABDOMEN: Soft, no distention. EXTREMITITES: No edema. Objective - Vital Signs Vital signs: Vital Signs Temp 97.8 F 06/06/22 09:22 Pulse 87 06/06/22 09:22 Resp 17 06/06/22 09:22 BP 140/71 06/06/22 09:22 Pulse Ox 97 06/06/22 09:22 FiO2 Intake & Output 06/05/22 06/06/22 06/06/22 18:59 06:59 18:59 Intake Total 390.667 100 Output Total 2350 100 Balance -1959.333 0 Weight 88 kg Intake: Intake, IV Titration 90.667 100 Amount Diltiazem 125 mg In 90.667 Sodium Chloride 0.9% 100 ml @ 5 MG/HR 5 mls/hr IV .Q24H [facility] Rx#:[id number] Piperacillin-Tazobactam 3 100 .375 gm In Sodium Chloride 0.9% 100 ml @ 25 mls/hr IVPB Q12H [facility] Rx# :[id number] Oral 0 Hemodialysis 300 Output: Urine 50 100 Hemodialysis 2300 Other: Voiding Method Indwelling Catheter Indwelling Catheter # Bowel Movements 0 - Labs CBC & Chem 7: 06/05/22 07:13 06/05/22 07:13 Labs: Abnormal Lab Results - Last 24 Hours (Table) 06/05/22 06/05/22 Range/Units 07:13 07:13 Potassium 5.3 H (3.5-5.1) mmol/L BUN 42 H (9-20) mg/dL Creatinine 7.05 H* (0.66-1.25) mg/dL Glucose 125 H (74-99) mg/dL Total Bilirubin 1.5 H (0.2-1.3) mg/dL Procalcitonin 0.47 H (0.02-0.09) ng/mL Microbiology - Last 24 Hours (Table) 06/04/22 11:08 Blood Culture - Preliminary Blood No Growth after 24 hours 06/04/22 11:08 Blood Culture - Preliminary Blood No Growth after 24 hours Assessment and Plan Plan: Assessment: 1. End-stage renal disease maintained on hemodialysis on Thursday schedule. Patient has AV fistula. 2. Altered mental status. Possibly medication effect versus infection. Improved. LP pending. ID following. 3. Chronic kidney disease mineral bone disease maintained on Renvela. Phosphorus 4.1. 4. Fever. Possible pneumonia. On antibiotics. 5. A. fib with RVR maintained on Cardizem drip. 6. Chronic diastolic CHF. 7. Anemia of chronic kidney disease. Hemoglobin 10.1 yesterday. 8. History of coronary artery disease. Plan: Hemodialysis tomorrow. Follow-up cultures. Monitor vancomycin level. Target level near 15.
--- NOTE | 2022-06-06 10:16 | P.CRDCN ---
History of Present Illness History of present illness: HISTORY OF PRESENTING ILLNESS This is a pleasant 76-year-old male past medical history significant for CVA 06/2021, paroxysmal atrial fibrillation on Xarelto, End stage renal disease on dialysis, hypertension, dyslipidemia. He follows in the office with Dr. Kurtz. We have been asked to see in consultation for atrial fibrillation with RVR. Patient presents to the emergency department with altered mental status. Patient seen and examined at bedside, he is confused, poor historian unable to follow commands. Per chart review patient presented to the ER with worsening cough, fever altered mental status and hypoxia 87% on room air. He was recently discharged from [facility] about 2-3 days prior to presenting to our facility. On admission patient in A fib with RVR, HR 120s, patient started on IV Cardizem. He failed a swallow eval and unable to take PO DIAGNOSTICS EKG reveals atrial fibrillation with rapid ventricular response, left bundle branch block, heart rate 128 Telemetry tracings indicate atrial fibrillation, heart rate [id number]. Echocardiogram 06/2021 revealed EF of 5055 % Chest xray increasing infiltrate left perihilar and left lower lobe as well as right lung base likely in the basis of pneumonia Laboratory reviewed, troponin negative, WBC 14.4, hemoglobin 10.1, platelets 165, sodium 138, potassium 5.3, BUN 42, serum creatinine 7.05, proBNP 30,400, pro-calcitonin 0.47, covid 19 negative, influenza negative Current home medications includePlavix 75 mg daily, Xarelto 50 mg nightly, metoprolol succinate 50 mg twice a day, Imdur 30 mg daily cardiac catheterization 07/2007 revealed minimal coronary artery disease REVIEW OF SYSTEMS At the time of my exam: unable to complete accurate review of systems secondary to altered mental status PHYSICAL EXAMINATION [id number], heart rate 87, afebrile, saturations 97% on room air CONSTITUTIONAL: No apparent distress. HEENT: Head is normocephalic. Pupils are equal, round. Sclerae anicteric. Mucous membranes of the mouth are moist. No JVD. CHEST EXAMINATION: Lungs with crackles in the bilateral bases to auscultation. Audible wheeze noted. No chest wall tenderness is noted on palpation or with deep breathing. HEART EXAMINATION: Irregular rate and rhythm. S1, S2 heard. Systolic ejection murmur ABDOMEN: Soft, nontender. Positive bowel sounds. EXTREMITIES: 2+ peripheral pulses, no lower extremity edema and no calf tenderness. SKIN: warm, dry NEUROLOGIC EXAMINATION: Patient is awake,lethargic confused ASSESSMENT Paroxysmal atrial fibrillation with RVR, on Xarelto Pneumonia Leukocytosis Altered mental status Hypoxia History of CVA 06/2021 End stage renal disease on dialysis Hypertension Dyslipidemia Coronary artery disease status post PCI to mid LAD in 2003 PLAN Patient is unable to take PO medications, will continue IV Cardizem drip until patient is able to take PO. Patient's heart rates are currently controlled this morning. Continue cardiac medications when patient can tolerate PO Continue cardiac telemetry Further recommendations based on clinic course Nurse practitioner note has been reviewed by physician. Signing provider agrees with the documented findings, assessment, and plan of care. Past Medical History Past Medical History: Asthma, Coronary Artery Disease (CAD), Cancer, Heart Failure, COPD, GERD/Reflux, Hearing Disorder / Deafness, Hyperlipidemia, Hypertension, Osteoarthritis (OA), Prostate Disorder, Renal Disease, Sleep Apne a/CPAP/BIPAP Additional Past Medical History / Comment(s): ESRD with hemodialysis on //Thu, anemia, BPH, bronchitis, chronic low back pain, ankylosing spondylosis, gout in ankles in past, concepcion's esophagus, colon polyp, hemorrhoids, behind L ear basal cell skin cancer with removal, L hand squamous cell skin cancer removal, JF with Bipap, bilateral tinnitis, CHF per 2017 medical record but pt does not recall. History of Any Multi-Drug Resistant Organisms: None Reported Past Surgical History: Appendectomy, Cholecystectomy, Heart Catheterization, Heart Catheterization With Stent, Hernia Repair Additional Past Surgical History / Comment(s): Fistula L arm, EGDs, colonoscopies, abdominal hernia repair, ivette fundoplication, ruptured gallbladder with christelle/appy and piece of bowel removed, hemorrhoidectomy, behind L ear lesion removed and another from L hand, bilateral cataract removals/lens implants. Past Anesthesia/Blood Transfusion Reactions: No Reported Reaction Additional Past Anesthesia/Blood Transfusion Reaction / Comment(s): . Date of Last Stent Placement:: 2003 Past Psychological History: No Psychological Hx Reported Smoking Status: Never smoker Past Alcohol Use History: None Reported Past Drug Use History: None Reported - Past Family History Mother Family Medical History: Cancer Additional Family Medical History / Comment(s): Mother at age 72 from BREAST CANCER Father Family Medical History: Myocardial Infarction ([place]) Additional Family Medical History / Comment(s): Father of a [place] at the age of 48 yrs. Sister(s) Family Medical History: Diabetes Mellitus Additional Family Medical History / Comment(s): Patient has one sister. Patient's son have any brothers. Patient has 2 children with no major medical problems. Medications and Allergies Home Medications Medication Instructions Recorded Confirmed Type Dutasteride [Avodart] 0.5 mg PO DAILY 11/11/14 06/04/22 History Montelukast [Singulair] 10 mg PO HS 11/11/14 06/04/22 History Beclomethasone Dipropionate [Qvar 2 puff INHALATION RT-BID 11/21/15 06/04/22 History 80 mcg/puff] Ergocalciferol [Vitamin D2 50,000 unit PO WE 11/21/15 06/04/22 History (DRISDOL)] Isosorbide Mononitrate ER [Imdur] 30 mg PO DAILY 11/21/15 06/04/22 History Torsemide [Demadex] 20 mg PO DAILY 11/21/15 06/04/22 History Febuxostat [Uloric] 80 mg PO DAILY 10/22/16 06/04/22 History Lansoprazole 30 mg PO BID 10/22/16 06/04/22 History Sevelamer [Renvela] 800 mg PO BID-W/MEALS 11/03/19 06/04/22 History Albuterol Inhaler [Ventolin Hfa 2 puff INHALATION RT-QID PRN 02/11/20 06/04/22 History Inhaler] Omalizumab [Xolair] 150 mg SQ Q28D 02/13/20 06/04/22 History Docusate Sodium [Dok] 100 mg PO BID 03/17/20 06/04/22 History Loratadine 10 mg PO HS 03/17/20 06/04/22 History Lidocaine-Prilocaine Cream [Emla 1 applic TOPICAL DIRECTED 06/13/21 06/04/22 History Cream 2.5%/2.5%] Nitroglycerin Sl Tabs [Nitrostat] 0.4 mg SUBLINGUAL Q5M PRN 06/13/21 06/04/22 History Renavite 1 tab PO HS 06/13/21 06/04/22 History Clopidogrel [Plavix] 75 mg PO DAILY tab 06/17/21 06/04/22 Rx Rivaroxaban [Xarelto] 15 mg PO W/SUPPER tab 06/17/21 06/04/22 Rx Atorvastatin Calcium [Lipitor] 10 mg PO MOWEFR@2100 06/04/22 06/04/22 History Budesonide [Pulmicort] 0.5 mg INHALATION RT-BID 06/04/22 06/04/22 History EPINEPHrine (Auto Inject) [Epipen] 0.3 mg PO ONCE PRN 06/04/22 06/04/22 History Metoprolol Tartrate [Lopressor] 50 mg PO BID 06/04/22 06/04/22 History Midodrine HCl [ProAmatine] 10 mg PO TID 06/04/22 06/04/22 History QUEtiapine [SEROquel] 12.5 mg PO HS 06/04/22 06/04/22 History Sevelamer [Renvela] 800 mg PO SUMOWEFR@1200 06/04/22 06/04/22 History guaiFENesin [Mucinex] 1,200 mg PO Q12H PRN 06/04/22 06/04/22 History Allergies Allergy/AdvReac Type Severity Reaction Status Date / Time diphenhydramine HCl AdvReac Confusion Verified 06/04/22 13:04 [From Junie] Physical Exam Vitals: Vital Signs Temp Pulse Pulse Resp BP Pulse Ox 06/06/22 04:00 84 18 147/70 96 06/06/22 02:00 18 06/06/22 00:00 105 H 18 149/70 90 L 06/05/22 20:04 84 06/05/22 19:50 88 06/05/22 19:46 99.8 F H 96 18 154/73 95 06/05/22 16:36 97.8 F 89 19 141/81 06/05/22 16:00 100.4 F H 99 16 179/71 93 L 06/05/22 12:00 99.1 F 105 H 17 123/80 94 L 06/05/22 08:13 87 06/05/22 07:56 99.1 F 101 H 22 142/87 93 L Intake and Output 06/05/22 06/06/22 06/06/22 22:59 06:59 14:59 Intake Total 390.667 100 Output Total 2300 100 Balance -1909.333 0 Intake: Intake, IV Titration 90.667 100 Amount Diltiazem 125 mg In 90.667 Sodium Chloride 0.9% 100 ml @ 5 MG/HR 5 mls/hr IV .Q24H [facility] Rx#:[id number] Piperacillin-Tazobactam 3 100 .375 gm In Sodium Chloride 0.9% 100 ml @ 25 mls/hr IVPB Q12H [facility] Rx# :[id number] Oral 0 Hemodialysis 300 Output: Urine 100 Hemodialysis 2300 Other: Voiding Method Indwelling Catheter Indwelling Catheter Weight 88 kg Results 06/05/22 07:13 06/05/22 07:13 Cardiac Enzymes 06/05/22 Range/Units 07:13 AST 33 (17-59) U/L CBC 06/05/22 Range/Units 07:13 WBC 15.4 H (3.8-10.6) k/uL RBC 3.39 L (4.30-5.90) m/uL Hgb 10.1 L (13.0-17.5) gm/dL Hct 32.5 L (39.0-53.0) % Plt Count 165 (150-450) k/uL Comprehensive Metabolic Panel 06/05/22 Range/Units 07:13 Sodium 138 (137-145) mmol/L Potassium 5.3 H (3.5-5.1) mmol/L Chloride 100 (98-107) mmol/L Carbon Dioxide 23 (22-30) mmol/L BUN 42 H (9-20) mg/dL Creatinine 7.05 H* (0.66-1.25) mg/dL Glucose 125 H (74-99) mg/dL Calcium 9.3 (8.4-10.2) mg/dL AST 33 (17-59) U/L ALT 11 (4-49) U/L Alkaline Phosphatase 71 (38-126) U/L Total Protein 7.4 (6.3-8.2) g/dL Albumin 3.6 (3.5-5.0) g/dL Current Medications Generic Name Dose Route Start Last Admin Trade Name Freq PRN Reason Stop Dose Admin Albuterol/Ipratropium 3 ml 06/04/22 13:54 06/05/22 19:50 Ipratropium-Albuterol 3 Ml Neb INHALATION 3 ml RT-Q4H PRN Administration shortness of breath Allopurinol 100 mg 06/05/22 09:00 06/05/22 08:42 Allopurinol 100 Mg Tab PO Not Given DAILY [facility] Atorvastatin Calcium 10 mg 06/04/22 14:00 06/04/22 15:37 Atorvastatin 10 Mg Tab PO Not Given MOWEFR [facility] Budesonide 0.5 mg 06/04/22 20:00 06/05/22 19:50 Budesonide 0.5 Mg/2 Ml Nebu INHALATION 0.5 mg RT-BID [facility] Administration Clopidogrel Bisulfate 75 mg 06/05/22 09:00 06/05/22 08:42 Clopidogrel 75 Mg Tab PO Not Given DAILY [facility] Docusate Sodium 100 mg 06/04/22 21:00 06/05/22 20:23 Docusate 100 Mg Cap PO Not Given BID [facility] Finasteride 5 mg 06/05/22 09:00 06/05/22 08:42 Finasteride 5 Mg Tab PO Not Given DAILY [facility] Guaifenesin 1,200 mg 06/04/22 13:49 Guaifenesin 600 Mg Tablet.Er PO Q12H PRN Congestion Sodium Chloride 1,000 mls @ 20 mls/hr 06/04/22 14:00 06/05/22 15:58 Saline 0.9% IV Not Given .Q24H [facility] Diltiazem HCl 125 mg/ Sodium 125 mls @ 5 mls/hr 06/04/22 21:15 06/05/22 16:01 Chloride IV 5 mg/hr .Q24H [facility] 5 mls/hr Administration 5 MG/HR Piperacillin Sod/Tazobactam 100 mls @ 25 mls/hr 06/05/22 12:00 06/05/22 23:52 Sod 3.375 gm/ Sodium Chloride IVPB 25 mls/hr Q12H [facility] Administration Protocol Isosorbide Mononitrate 30 mg 06/05/22 09:00 06/05/22 08:42 Isosorbide Mononitrate Er 30 Mg Tab.Er.24h PO Not Given DAILY [facility] Loratadine 10 mg 06/04/22 21:00 06/05/22 20:23 Loratadine 10 Mg Tab PO Not Given HS [facility] Metoprolol Tartrate 50 mg 06/04/22 14:00 06/05/22 20:23 Metoprolol Tartrate 50 Mg Tab PO Not Given BID [facility] Miscellaneous Information 1 each 06/04/22 13:46 Pneumonia Protocol Utilized 1 Each Misc PO ONCE PRN Per Protocol Miscellaneous Information 1 each 06/04/22 21:13 Vancomycin Iv Per Pharmacy 1 Each Misc MISCELLANE DIRECTED PRN Per Protocol Protocol Montelukast Sodium 10 mg 06/04/22 21:00 06/05/22 20:23 Montelukast 10 Mg Tab PO Not Given HS [facility] Multivitamins 1 each 06/04/22 21:00 06/05/22 20:23 Multivitamins, Thera 1 Each Tab PO Not Given HS [facility] Nitroglycerin 0.4 mg 06/04/22 13:49 Nitroglycerin Sl Tabs 0.4 Mg Tab SUBLINGUAL Q5M PRN Chest Pain Pantoprazole Sodium 40 mg 06/04/22 21:00 06/05/22 20:23 Pantoprazole 40 Mg Tablet PO Not Given BID [facility] Rivaroxaban 15 mg 06/04/22 17:30 06/05/22 15:57 Rivaroxaban 15 Mg Tab PO Not Given W/SUPPER [facility] Protocol Sevelamer Carbonate 800 mg 06/04/22 17:30 06/06/22 06:19 Sevelamer 800 Mg Tab PO Not Given BID-W/MEALS [facility] Sevelamer Carbonate 800 mg 06/06/22 12:00 Sevelamer 800 Mg Tab PO SUMOWEFR@1200 [facility] Torsemide 20 mg 06/05/22 09:00 06/05/22 08:42 Torsemide 20 Mg Tab PO Not Given DAILY [facility] Intake and Output 06/05/22 06/06/22 06/06/22 22:59 06:59 14:59 Intake Total 390.667 100 Output Total 2300 100 Balance -1909.333 0 Intake: Intake, IV Titration 90.667 100 Amount Diltiazem 125 mg In 90.667 Sodium Chloride 0.9% 100 ml @ 5 MG/HR 5 mls/hr IV .Q24H [facility] Rx#:[id number] Piperacillin-Tazobactam 3 100 .375 gm In Sodium Chloride 0.9% 100 ml @ 25 mls/hr IVPB Q12H [facility] Rx# :[id number] Oral 0 Hemodialysis 300 Output: Urine 100 Hemodialysis 2300 Other: Voiding Method Indwelling Catheter Indwelling Catheter Weight 88 kg 06/05/22 07:13 06/05/22 07:13
--- NOTE | 2022-06-06 10:21 | P.PN ---
Subjective Progress Note Date: 06/06/22 HISTORY OF PRESENT ILLNESS This is a 76-year-old male patient with a previous medical history significant for hypertension and hypertensive cardiovascular disease, hyperlipidemia, end- stage renal disease on hemodialysis Thursday and Thursday, history of asthma/COPD, history of CAD post-PCI, history of ankylosing spondylitis, obstructive sleep apnea on a CPAP, CVA. Patient had CVA in June 2021 followed by a long stay at [facility] for subacute rehab. Patient was eventually discharged home and approximately January 2022 to live with his . She states that he did have 2 falls back in February but none in March and April, this month patient has had 5 falls requiring EMS to come and help her get him up. On Thursday and the morning she heard a crash and found him in the bathroom was jammed behind the door. He was able to pull himself up and denied having any pain or injury. Patient went back to bed and when he got for breakfast she heard that he had another fall but this time he had hit his head. EMS picked the patient brought him to [facility]. Patient apparently underwent a CAT scan of the head and neck which were negative. He was prepared for discharge home but he was scheduled for an EGD with Dr. Mendoza on Thursday which is done every 2 years due to Prabhakar's esophagus and it was decided the patient would stay and undergo EGD. The procedure was uneventful but patient had difficulty waking from anesthesia following. He ended up staying another day and was discharged home yesterday. Patient was apparently in his normal state of health and awake and alert when he came home was not having any issues at all. They had dinner together he watch some TV and went to bed around 10 PM. He was started on a new medication, Seroquel 12.5 mg at bedtime which she gave to him before bed. When patient woke up he was having significant cough around 5:45 in the morning. He was able go back to sleep until about 8 AM but she noticed a significant change in his mental status. His last hemodialysis was yesterday and usual schedule is Thursday. Patient was found have a temperature 100.3, heart rate documented at 120 alt jonatan also at 150 with A. fib with RVR and was given metoprolol 5 mg IV push with improvement down to 110s to 120s for heart rate. Blood pressure initially 143/100, pulse ox 100% on 4 L nasal cannula. WBC 11.4, hemoglobin 10.4, platelet count 201. INR 1.4. Sodium 130, potassium 4.7, chloride 96, CO2 25, BUN 28 creatinine was 5.49. Blood sugar 166. Lactic acid 2.5. Magnesium 1.7. Total bilirubin 1.3, AST 19, ALT 12, alkaline phosphatase 94. Troponin 0.031. ProBNP 30,400. Albumin 3.7. Urinalysis was clear with nitrate and leukoesterase negative. Coronavirus PCR, influenza A, influenza B all were not detected. Lay catheter was placed as a urinalysis was required in the emergency center. Chest x-ray correlate for heart failure consider diffuse interstitial and alveolar pneumonia. Patient was started on cefepime, DuoNeb treatments, consults with pulmonary medicine and nephrology. 06/05: Patient is seen today on the [facility] floor, he continues to have significant mental status changes and not improved from yesterday. CAT scan of the brain without contrast ordered but was nondiagnostic. Patient has been seen by nephrology and undergoing hemodialysis today. Due to confusion and inability to concentrate, one dose of IV Ativan ordered. Patient has been seen by pulmonary medicine and cefepime transitioned to IV Zosyn. satellite project site monitor remains atrial fibrillation with controlled rate. Last evening, Cardizem drip was started at 5 mg per hour as heart rate was in the 180s and pulse ox dropped down to 86% and 2 L nasal cannula was applied. Today, patient is unable to take any of his oral medications due to his mental status. His temperature max has been 102.3, heart rate now at 87, blood pressure 142/87, pulse ox 93% on room air. Consult added for cardiology although heart rate is controlled at this time. Patient is continued on Cardizem drip due to inability to take oral medications. 06/06: Patient is found sleeping in his bed this morning. He does wake up opens his eyes and answering questions with one-word answers. He is able to drink water without any signs of coughing or choking. He does have a speech therapy evaluation scheduled for today. Patient is continued on IV Zosyn and IV vancomycin. Blood work from yesterday revealed WBC of 15.4, hemoglobin 10.1 and platelet count 165. Sodium 138, potassium 5.3, chloride 100, CO2 23, BUN 42 and creatinine 7.05. Blood sugar 125. Ammonia level less than 9. Pro-calcitonin 0.47. Total bilirubin 1.5, AST 33, ALT 11, alkaline phosphatase 71. Consult was added yesterday for neurology due to concern for ongoing mental status changes and patient not improving after starting antibiotics. Patient was seen by Dr. Beck for suspected encephalopathy, EEG and repeat CAT scan have been ordered and anesthesia for CSF study. Patient's last dose of Xarelto would have been on 06/03. Neurologys added in infectious disease as well. Patient is scheduled for hemodialysis tomorrow. Dr. Roldan is recommending continuing vancomycin and Zosyn while waiting for cultures finalized.blood cultures are showing no growth after 24 hours 1 specimen. Cardiology consult was added yesterday for A. fib with RVR. Patient remains on Cardizem drip. He has not been started on oral medications as of yet and waiting for speech therapy evaluation but suspect the patient will be started on orals today. REVIEW OF SYSTEMS Constitutional: Reported fever, reported chills, no night sweats. No weight change. Reported weakness, reported fatigue reported lethargy. Reported daytim e sleepiness. EENT: No headache. No blurred vision or double vision, no loss of vision. No loss of Hearing, no ringing in the ears, no dizziness. No nasal drainage or congestion. No epistaxis. No sore throat. Lungs: No shortness of breath, noted cough, no sputum production. No wheezing. Cardiovascular: No chest pain, no lower extremity edema. No palpitations. No paroxysmal nocturnal dyspnea. No orthopnea. No lightheadedness or dizziness. No syncopal episodes. Abdominal: No abdominal pain. No nausea, vomiting. No diarrhea. No constipation. No bloody or tarry stools.. No loss of appetite. Genitourinary: No dysuria, increased frequency, urgency. No urinary retention. Musculoskeletal: No myalgias. No muscle weakness, no gait dysfunction, no frequent falls. No back pain. No neck pain. Integumentary: No wounds, no lesions. No rash or pruritus. No unusual bruising. No change in hair or nails. Neurologic: Reported aphasia. No facial droop. Noted change in mentationimpr oving . No head injury. No headache. No paralysis. No paresthesia. Psychiatric: No depression. No anxiety. No mood swings. Endocrine: No abnormal blood sugars. No weight change. No excessive sweating or thirst. No cold intolerance. PHYSICAL EXAMINATION Gen: This is a 75-year-old obese occasion male. He is resting in bed and appears to be in no acute distress. HEENT: Head is atraumatic, normocephalic. Pupils equal, round. Sclerae is anicteric. NECK: Supple. No JVD. No lymphadenopathy. No thyromegaly. LUNGS: Decreased breath sounds at the bases. No crackles, no wheezes. No intercostal retractions. HEART: First heart sound is depressed, second heart sound is normal, there is systolic ejection murmur 2/6 located in the left sternal border. Tachycardic an d irregular. ABDOMEN: Soft. Bowel sounds are present. No masses. No tenderness. Lay catheter in place with small amount of urine output. EXTREMITIES: No pedal edema. No calf tenderness. Dorsalis pedis +1 bilaterally. NEUROLOGICAL: Patient awake, alert, able to follow a few simple commands, able to drink water this morning from a straw without coughing or choking. Patient is confused. ASSESSMENT AND PLAN 1. Metabolic encephalopathy secondary to aspiration pneumonia. consult with neurology. Anesthesia for cerebral spinal fluid test/LP. Infectious disease c onsult was added. 2. Acute hypoxic respiratory failure secondary to A. fib with RVR and aspiration pneumonia. Patient continuedon Cardizem drip, oxygen therapy. consult with cardiology. 3. Aspiration pneumonia and sepsis. Patient started on cefepime and transitioned to Zosyn, vancomycinDuoNeb treatments every 4 hours as needed, consult with pulmonary medicine appreciated. 4. Lactic acidosis secondary to pneumonia. Continue treatment as a #2. 5. Atrial fibrillation with RVR, paroxysmal atrial fibrillation, status post IV Lopressor. Patient was started on Cardizem IV drip on the evening of 06/04. Patient is unable to take his oral medications: Lopressor 50 mg twice daily, Xarelto 15 mg daily at supper. Consult with cardiology. 6. Acute on chronic diastolic heart failure. Patient unable to take oral medications: Demadex 20 mg daily, Lopressor, Renvela 800 mg twice daily and 800 mg on Thursday at noon. 6. History of CVA. Patient unable to take oral medications: atorvastatin 10 mg Thursday. 7. End-stage renal disease on hemodialysis. Consult with nephrology appreciated. Patient undergoing hemodialysis today. 8. Hypertension, hypertensive cardiovascular disease. Patient unable to take oral medication: felodipine 10 mg Thursday and Thursday, Lopressor, Imdur 9. Hyperlipidemia. Continue atorvastatin. 10. History of coronary artery disease status post PCI. Patient unable to take oral medication: Imdur 30 mg daily, aspirin, Lipitor, continue Lopressor 100 mg at bedtime. 11. Moderate intermittent asthma, stable. Continue Pulmicort 0.5 mg twice daily, Mucinex 1200 mg oral every 12 hours as needed for cough, DuoNeb treatments. 12. Benign prostatic hypertrophy. Lay was placed in the emergency center for a urine specimen. 13. Gastroesophageal reflux disease. Continue PPI. 14. DVT prophylaxis. Xarelto DISCHARGE PLAN Most likely subacute rehab at [facility]. Social work consult. Impression and plan of care have been directed as dictated by the signing physic ian. Missy Manzano nurse practitioner acting as scribe for signing physician. Objective - Vital Signs Vital signs: Vital Signs Temp 99.8 F H 06/05/22 19:46 Pulse 84 06/06/22 04:00 Resp 18 06/06/22 04:00 BP 147/70 06/06/22 04:00 Pulse Ox 96 06/06/22 04:00 FiO2 Intake & Output 06/05/22 06/06/22 06/06/22 18:59 06:59 18:59 Intake Total 390.667 100 Output Total 2350 100 Balance -1959.333 0 Weight 88 kg Intake: Intake, IV Titration 90.667 100 Amount Diltiazem 125 mg In 90.667 Sodium Chloride 0.9% 100 ml @ 5 MG/HR 5 mls/hr IV .Q24H [facility] Rx#:[id number] Piperacillin-Tazobactam 3 100 .375 gm In Sodium Chloride 0.9% 100 ml @ 25 mls/hr IVPB Q12H [facility] Rx# :[id number] Oral 0 Hemodialysis 300 Output: Urine 50 100 Hemodialysis 2300 Other: Voiding Method Indwelling Catheter Indwelling Catheter # Bowel Movements 0 - Labs CBC & Chem 7: 06/05/22 07:13 09/29/22 07:13 Labs: Abnormal Lab Results - Last 24 Hours (Table) 06/05/22 06/05/22 06/05/22 Range/Units 07:13 07:13 07:13 WBC 15.4 H (3.8-10.6) k/uL RBC 3.39 L (4.30-5.90) m/uL Hgb 10.1 L (13.0-17.5) gm/dL Hct 32.5 L (39.0-53.0) % RDW 16.2 H (11.5-15.5) % Potassium 5.3 H (3.5-5.1) mmol/L BUN 42 H (9-20) mg/dL Creatinine 7.05 H* (0.66-1.25) mg/dL Glucose 125 H (74-99) mg/dL Total Bilirubin 1.5 H (0.2-1.3) mg/dL Procalcitonin 0.47 H (0.02-0.09) ng/mL Microbiology - Last 24 Hours (Table) 06/04/22 11:08 Blood Culture - Preliminary Blood No Growth after 24 hours 06/04/22 11:08 Blood Culture - Preliminary Blood No Growth after 24 hours
[2022-06-06] MEDS ORDERED: HEPARIN SODIUM 1,000 UN/ML (10ML VL) IV PRN (10:38)
[2022-06-06 11:01] LABS: African American GFR (CKD) 8 (>60 ml/min/1.73 sqM); Non-African American GFR(CKD) 7 (>60 ml/min/1.73 sqM)
[2022-06-06] MEDS: PIPERACILLIN-TAZOBACTAM 3.375 GM in SODIUM CHLORIDE 0.9% 100 ML IVPB SCH ×2 (11:17→23:19)
[2022-06-06] MEDS: HEPARIN SOD,PORK IN 0.45% NACL 25,000 UNIT in 0.45% NACL 1 250ML.BAG IV SCH (11:18)
--- NOTE | 2022-06-06 11:19 | CT ---
EXAMINATION TYPE: CT brain wo con DATE OF EXAM: 06/06/2022 HISTORY: follow up altered mental status CT DLP: 2055.4 mGycm. Automated Exposure Control for Dose Reduction was Utilized. TECHNIQUE: CT scan of the head is performed without contrast. COMPARISON: CT brain from 1 day earlier and older studies. FINDINGS: Less motion artifact on exam. There is no acute intracranial hemorrhage or midline shift identified. There is mild to moderate diffuse ventricular and sulcal prominence consistent with diffu se age-related cerebral atrophy. There is mild low-attenuation in the periventricular white matter c onsistent with chronic small vessel ischemic change. Old infarct left frontal lobe anterior watershed region redemonstrated near axial image 59. Soft tissue density consistent with cerumen in the deep external auditory canals bilaterally is identified. The globes are intact and the visualized sinuses are clear. IMPRESSION: No acute intracranial hemorrhage or midline shift. There is mild to moderate diffuse ag e-related cerebral atrophy and mild chronic small vessel ischemic change along with left frontal lobe old infarct all redemonstrated. Less motion artifact from study one day earlier otherwise no signif icant change.
--- NOTE | 2022-06-06 12:07 | P.PN ---
Subjective Progress Note Date: 06/06/22 The patient is seen at bedside and per the patient nurse the he somewhat better today compared to yesterday but still confused. He is opening his eyes more. Cannot perform lumbar puncture since the patient is on Xarelto as well as on Plavix. Objective - Vital Signs Vital signs: Vital Signs Temp 97.8 F 06/06/22 09:22 Pulse 87 06/06/22 09:22 Resp 17 06/06/22 09:22 BP 140/71 06/06/22 09:22 Pulse Ox 97 06/06/22 09:22 FiO2 Intake & Output 06/05/22 06/06/22 06/06/22 18:59 06:59 18:59 Intake Total 390.667 100 Output Total 2350 100 Balance -1959.333 0 Weight 88 kg Intake: Intake, IV Titration 90.667 100 Amount Diltiazem 125 mg In 90.667 Sodium Chloride 0.9% 100 ml @ 5 MG/HR 5 mls/hr IV .Q24H SHANTAL Rx#:[id number] Piperacillin-Tazobactam 3 100 .375 gm In Sodium Chloride 0.9% 100 ml @ 25 mls/hr IVPB Q12H SHANTAL Rx# :[id number] Oral 0 Hemodialysis 300 Output: Urine 50 100 Hemodialysis 2300 Other: Voiding Method Indwelling Catheter Indwelling Catheter # Bowel Movements 0 - Exam GENERAL: The patient is lying in bed and does not appear in acute distress. NEUROLOGICAL: Higher mental function: The patient is awake, alert. Oriented to self. There is delay in response but upon showing him objects he stated "these are used to throw them away" and stated it clearly. He is following few simple commands (sticking tongue out and gripping hands). Cranial nerves: The pupils are round, equal and reactive to light. Primary gaze is midline but is able to track throughout the room. No facial weakness. No dysarthria. Motor: The strength is hard to assess individual muscles because of cooperation but lifting all extremities spontaneously above gravity. Cerebellum: Unable to assess. Sensation: Unable to assess. Reflexes (right/left):1+ throughout. Plantars are mute bilaterally. Some of the workup during this hospital visit consisted of Pereira virus PCR was not detected Influenza A and B PCR was not detected CT of the head on 06/05/2022 which is reported as nondiagnostic exam due to extreme artifact. Cannot assess for hemorrhage or acute process. Suggestion of degenerative change and remote left frontal infarct. I personally reviewed that the CT and I agree there is a lot of motion artifact but I was able to appreciate the left frontal old stroke. TSH: 1.810 Ammonia <9 - Labs CBC & Chem 7: 06/05/22 07:13 06/06/22 09:17 Labs: Abnormal Lab Results - Last 24 Hours (Table) 06/05/22 06/06/22 Range/Units 07:13 09:17 Creatinine 7.21 H* (0.66-1.25) mg/dL Procalcitonin 0.47 H (0.02-0.09) ng/mL Microbiology - Last 24 Hours (Table) 06/04/22 11:08 Blood Culture - Preliminary Blood No Growth after 24 hours 06/04/22 11:08 Blood Culture - Preliminary Blood No Growth after 24 hours Assessment and Plan Assessment: This is a 76-year-old gentleman who presented because of cough, reported hypoxia and confusion. He had elevated fever or leukocytosis. He's been having recurrent falls at home Altered mental status: encephalopathy of unknown etiology. Possible aspiration pneumonia. Rule out meningoencephalitis (seems low on differential) and currently mentation is slightly improving compared to yesterday. Recurrent falls of unknown etiology History of atrial fibrillation on Xarelto History of stroke over the left frontal on June 2021 with speech difficulty End-stage renal disease on dialysis Plan: Pending routine EEG. I ordered CSF study and consulted anesthesiology for that. But she also will be held and Plavix needs to be held for at least 5 days prior to the lumbar puncture. In the meantime the patient is on vancomycin and Zosyn and ID is on board and we'll defer antibiotic management to the ID team. Pending a repeat CT of the head for today. Cannot obtain MRI since on able for the patient to lie still Pulmonary team is consulted Nephrology team is on board We'll defer the rest of the medical management to primary team The plan was discussed with the patient nurse Alexander Beck M.D. Neuro-hospitalist Time with Patient: Less than 30
--- NOTE | 2022-06-06 14:59 | P.PN ---
Subjective Progress Note Date: 06/06/22 This is a 68-year-old male patient currently a very poor historian recently discharged from [facility] 2 to 3 days ago who has a history of end-stage renal disease receiving hemodialysis Thursday's, anemia, congestive heart failure, chronic obstructive pulmonary disease, hearing disorder, hyperlipidemia, hypertension, osteoarthritis, obstructive sleep apnea with BiPAP coronary disease with previous stent placement. He was brought into the emergency room yesterday with weakness shortness of breath and was found to be hypoxemic with O2 saturation 87%. His is having difficulty taking care of him at home. Chest x-ray shows left perihilar and left lower lobe infi ltrates as well as infiltrate of the right lung base and evidence of pulmonary vascular congestion. White count 15.4. Hemoglobin 10.1. Sodium 138. Potassium 5.3. BUN 42. Creatinine 7.05. Glucose 125. Pro-calcitonin 0.47. He's been initiated on bronchodilators, antibiotics in the form of vancomycin and Zosyn. He is anticoagulated with Xarelto. He is seen today in consultation on the selective care unit. He is currently resting in bed. He is arousable. Altered. Poor historian. Maintaining O2 saturations in the 90s on room air. Temperature 99.1 axillary. He is tachycardic. He is currently receiving hemodialysis. The patient is seen today 06/06/2020 to follow up on the selective care unit. He is currently resting comfortably in bed. He is more awake and alert today. He is appropriate. Somewhat slow to respond. He is maintaining good O2 saturations in the 90s on room air. He's been afebrile. Hemodynamically stable. Computed tomography scan of the brain revealed no acute intracranial hemorrhage or midline shift. Mild to moderate diffuse age-related cerebral atr ophy and mild chronic small vessel ischemia along the left frontal lobe, old infarct redemonstrated. No change compared to previous. Blood cultures reveal no growth. Creatinine 7.21. Ammonia level less than 10. TSH 1.81. He is currently on a heparin drip. Cardizem drip at 5 mg an hour. Antibiotics in the form of vancomycin and Zosyn. Objective - Vital Signs Vital signs: Vital Signs Temp 98 F 06/06/22 12:00 Pulse 90 06/06/22 12:00 Resp 16 06/06/22 12:00 BP 135/65 06/06/22 12:00 Pulse Ox 98 06/06/22 12:00 FiO2 Intake & Output 06/05/22 06/06/22 06/06/22 18:59 06:59 18:59 Intake Total 390.667 100 Output Total 2350 100 Balance -1959.333 0 Weight 88 kg Intake: Intake, IV Titration 90.667 100 Amount Diltiazem 125 mg In 90.667 Sodium Chloride 0.9% 100 ml @ 5 MG/HR 5 mls/hr IV .Q24H [facility]ANTAL Rx#:[id number] Piperacillin-Tazobactam 3 100 .375 gm In Sodium Chloride 0.9% 100 ml @ 25 mls/hr IVPB Q12H [facility]ANTAL Rx# :[id number] Oral 0 Hemodialysis 300 Output: Urine 50 100 Hemodialysis 2300 Other: Voiding Method Indwelling Catheter Indwelling Catheter Indwelling Catheter # Bowel Movements 0 - Exam GENERAL EXAM: Awake, alert, 76-year-old male, on room air, comfortable in no apparent distress. HEAD: Normocephalic. EYES: Normal reaction of pupils, equal size. NOSE: Clear with pink turbinates. THROAT: No erythema or exudates. NECK: No masses, no JVD. CHEST: No chest wall deformity. LUNGS: Equal air entry with crackles in the bilateral bases. CVS: S1 and S2 normal with no audible murmur, regular rhythm. ABDOMEN: No hepatosplenomegaly, normal bowel sounds, no guarding or rigidity. SPINE: No scoliosis or deformity SKIN: No rashes CENTRAL NERVOUS SYSTEM: No focal deficits, tone is normal in all 4 extremities. EXTREMITIES: Left upper extremity fistula There is no peripheral edema. No clubbing, no cyanosis. Peripheral pulses are intact. - Labs CBC & Chem 7: 06/05/22 07:13 06/06/22 09:17 Labs: Abnormal Lab Results - Last 24 Hours (Table) 06/05/22 06/06/22 Range/Units 07:13 09:17 Creatinine 7.21 H* (0.66-1.25) mg/dL Procalcitonin 0.47 H (0.02-0.09) ng/mL Microbiology - Last 24 Hours (Table) 06/04/22 11:08 Blood Culture - Preliminary Blood No Growth after 48 hours 06/04/22 11:08 Blood Culture - Preliminary Blood No Growth after 48 hours Assessment and Plan Assessment: Generalized weakness, confusion of unclear etiology. More awake and alert today. Follow-up computed tomography scan did not reveal any acute intracranial process. End-stage renal disease receiving hemodialysis Thursday Recent admission to [facility] due to falls and weakness. Discharged 2 days prior to arrival here Coronary disease with previous stent placement Hypertension Hyperlipidemia Hearing disorder Obstructive sleep apnea Prabhakar's esophagus Nonsmoker Poor overall functional performance based on the above-mentioned multiple comorbidities Plan: The patient was seen and evaluated More awake and alert today Maintaining O2 saturations in the 90s on room air We will see as needed I have personally seen and examined the patient, performed the documentation and the assessment and plan as written. Number of minutes spent on the visit: 10.
--- NOTE | 2022-06-06 15:29 | P.PN ---
Subjective Progress Note Date: 06/06/22 Principal diagnosis: Fever and possible pneumonia Patient is a 76-year-old male with a past medical history significant for end-stage renal disease on hemodialysis presented to the hospital mental status changes, patient did have fever and elevated white count and concern for pneumonia and questionable aspiration etiology on today's evaluation that is 06/06/2022, the patient is afebrile this morning the patient is slightly more awake and alert however did not answer any question and vomiting diarrhea or any other changes reported by the nursing staff Objective - Vital Signs Vital signs: Vital Signs Temp 98 F 06/06/22 12:00 Pulse 90 06/06/22 12:00 Resp 16 06/06/22 12:00 BP 135/65 06/06/22 12:00 Pulse Ox 98 06/06/22 12:00 FiO2 Intake & Output 06/05/22 06/06/22 06/06/22 18:59 06:59 18:59 Intake Total 390.667 100 Output Total 2350 100 Balance -1959.333 0 Weight 88 kg Intake: Intake, IV Titration 90.667 100 Amount Diltiazem 125 mg In 90.667 Sodium Chloride 0.9% 100 ml @ 5 MG/HR 5 mls/hr IV .Q24H SHANTAL Rx#:[id number] Piperacillin-Tazobactam 3 100 .375 gm In Sodium Chloride 0.9% 100 ml @ 25 mls/hr IVPB Q12H [facility]ANTAL Rx# :[id number] Oral 0 Hemodialysis 300 Output: Urine 50 100 Hemodialysis 2300 Other: Voiding Method Indwelling Catheter Indwelling Catheter Indwelling Catheter # Bowel Movements 0 - Exam GENERAL DESCRIPTION: An elderly male lying in bed in no distress RESPIRATORY SYSTEM: Unlabored breathing , decreased breath sounds at bases HEART: S1 S2 regular rate and rhythm , ABDOMEN: Soft , no tenderness EXTREMITIES: No edema feet - Labs CBC & Chem 7: 06/05/22 07:13 06/06/22 09:17 Labs: Abnormal Lab Results - Last 24 Hours (Table) 06/05/22 06/06/22 Range/Units 07:13 09:17 Creatinine 7.21 H* (0.66-1.25) mg/dL Procalcitonin 0.47 H (0.02-0.09) ng/mL Microbiology - Last 24 Hours (Table) 06/04/22 11:08 Blood Culture - Preliminary Blood No Growth after 48 hours 06/04/22 11:08 Blood Culture - Preliminary Blood No Growth after 48 hours Assessment and Plan (1) Aspiration pneumonia Current Visit: Yes Status: Acute Code(s): J69.0 - PNEUMONITIS DUE TO INHALATION OF FOOD AND VOMIT SNOMED Code(s): 210335494 Plan: 1patient presented to hospital with sepsis and respiratory have fever elevated white count with evidence of increasing infiltrate on the left side chest x-ray with concern for possible aspiration pneumonia likely from enteric gram-negative pathogen and less likely gram-positive however the patient did have significant mental status changes and underlying encephalitis less likely 2- patient to continue with the Zosyn in view of clinical response and we will discontinue vancomycin and a monitor clinical course closely Time with Patient: Less than 30
[2022-06-06] MEDS: ATORVASTATIN 10 MG TAB PO SCH (15:44)
[2022-06-06] MEDS: SODIUM CHLORIDE 0.9% 1,000 ML IV SCH (18:00)
[2022-06-06] MEDS: IPRATROPIUM-ALBUTEROL 3 ML NEB INHALATION PRN (19:57)
[2022-06-06] MEDS: MULTIVITAMINS, THERA 1 EACH TAB PO SCH (20:53)
[2022-06-06] MEDS: LORATADINE 10 MG TAB PO SCH (20:53)
[2022-06-06] MEDS: MONTELUKAST 10 MG TAB PO SCH (20:53)
[2022-06-06] MEDS: DILTIAZEM 125 MG in SODIUM CHLORIDE 0.9% 100 ML IV SCH (20:54)
--- NOTE | 2022-06-07 00:34 | EEG ---
ELECTROENCEPHALOGRAM REPORT CLINICAL HISTORY: This is a 76-year-old gentleman with altered mental status. The video EEG is obtained to evaluate for seizure epileptiform activity. RELEVANT MEDICATION: The patient is not on any seizure medication. EEG TYPE: A routine 21-channel EEG is performed with video using the 10/20 electrode placement system. DESCRIPTION: Wakefulness is obtained. During awake state, the background consists of low-to- moderate voltage of 6 to 7 hertz activity intermixed with delta activity. There was no physiological stage 2 sleep architecture. There is no focal slowing seen. There is [id number] diffuse myogenic as well as electrode artifact is noted predominantly in the beginning of the study. INTERICTAL AND ICTAL: None. ACTIVATION PROCEDURE: Photic stimulation and hyperventilation are not performed. CLINICAL INTERPRETATION: This is an abnormal routine EEG. The background slowing is suggestive of moderate encephalopathy. Otherwise, there is no focal slowing, epileptiform discharge, or seizure on the EEG. Clinical correlation is recommended. YOLANDA / OWEN: [id number] /
[2022-06-07] MEDS: HEPARIN SOD,PORK IN 0.45% NACL 25,000 UNIT in 0.45% NACL 1 250ML.BAG IV SCH (03:16)
[2022-06-07] MEDS: DILTIAZEM 125 MG in SODIUM CHLORIDE 0.9% 100 ML IV SCH (03:17)
[2022-06-07] MEDS: SEVELAMER 800 MG TAB PO SCH ×2 (06:14→14:35)
[2022-06-07 07:12] LABS: Basophils % (A) 1 %; Eosinophils # (A) 0.4 k/uL (0-0.7); Eosinophils % (A) 5 %; HCT 28.7 % (39.0-53.0); Hypochromasia Moderate; Lymphocytes # (A) 1.5 k/uL (1.0-4.8); Lymphocytes % (A) 19 %; MCH 29.8 pg (25.0-35.0); MCHC 31.4 g/dL (31.0-37.0); MCV 94.9 fL (80.0-100.0); Mean Platelet Volume 8.7; Monocytes # (A) 0.5 k/uL (0-1.0); Monocytes % (A) 6 %; Neutrophils # (A) 5.6 k/uL (1.3-7.7); Neutrophils % (A) 68 %; Platelet Count 141 k/uL (150-450); RBC 3.02 m/uL (4.30-5.90); WBC 8.2 k/uL (3.8-10.6)
[2022-06-07 07:25] LABS: INR 1.4 (<1.2); Prothrombin Time 14.6 sec (9.0-12.0)
[2022-06-07 07:33] LABS: Calcium 8.8 mg/dL (8.4-10.2); Total Bilirubin 1.1 mg/dL (0.2-1.3); Total Protein 6.7 g/dL (6.3-8.2)
[2022-06-07] MEDS: IPRATROPIUM-ALBUTEROL 3 ML NEB INHALATION PRN (08:05)
[2022-06-07] MEDS: BUDESONIDE 0.5 MG/2 ML NEBU INHALATION SCH ×2 (08:05→19:38)
[2022-06-07] MEDS: ISOSORBIDE MONONITRATE ER 30 MG TAB.ER.24H PO SCH (10:02)
[2022-06-07] MEDS: DOCUSATE 100 MG CAP PO SCH ×2 (10:02→20:19)
--- NOTE | 2022-06-07 10:16 | P.PN ---
Subjective Progress Note Date: 06/07/22 HISTORY OF PRESENT ILLNESS This is a 76-year-old male patient with a previous medical history significant for hypertension and hypertensive cardiovascular disease, hyperlipidemia, end- stage renal disease on hemodialysis Thursday and Thursday, history of asthma/COPD, history of CAD post-PCI, history of ankylosing spondylitis, obstructive sleep apnea on a CPAP, CVA. Patient had CVA in June 2021 followed by a long stay at [facility] for subacute rehab. Patient was eventually discharged home and approximately January 2022 to live with his . She states that he did have 2 falls back in February but none in March and April, this month patient has had 5 falls requiring EMS to come and help her get him up. On Thursday and the morning she heard a crash and found him in the bathroom was jammed behind the door. He was able to pull himself up and denied having any pain or injury. Patient went back to bed and when he got for breakfast she heard that he had another fall but this time he had hit his head. EMS picked the patient brought him to [facility]. Patient apparently underwent a CAT scan of the head and neck which were negative. He was prepared for discharge home but he was scheduled for an EGD with Dr. Mendoza on Thursday which is done every 2 years due to Prabhakar's esophagus and it was decided the patient would stay and undergo EGD. The procedure was uneventful but patient had difficulty waking from anesthesia following. He ended up staying another day and was discharged home yesterday. Patient was apparently in his normal state of health and awake and alert when he came home was not having any issues at all. They had dinner together he watch some TV and went to bed around 10 PM. He was started on a new medication, Seroquel 12.5 mg at bedtime which she gave to him before bed. When patient woke up he was having significant cough around 5:45 in the morning. He was able go back to sleep until about 8 AM but she noticed a significant change in his mental status. His last hemodialysis was yesterday and usual schedule is Thursday. Patient was found have a temperature 100.3, heart rate documented at 120 [address] jonatan also at 150 with A. fib with RVR and was given metoprolol 5 mg IV push with improvement down to 110s to 120s for heart rate. Blood pressure initially 143/100, pulse ox 100% on 4 L nasal cannula. WBC 11.4, hemoglobin 10.4, platelet count 201. INR 1.4. Sodium 130, potassium 4.7, chloride 96, CO2 25, BUN 28 creatinine was 5.49. Blood sugar 166. Lactic acid 2.5. Magnesium 1.7. Total bilirubin 1.3, AST 19, ALT 12, alkaline phosphatase 94. Troponin 0.031. ProBNP 30,400. Albumin 3.7. Urinalysis was clear with nitrate and leukoesterase negative. Coronavirus PCR, influenza A, influenza B all were not detected. Lay catheter was placed as a urinalysis was required in the emergency center. Chest x-ray correlate for heart failure consider diffuse interstitial and alveolar pneumonia. Patient was started on cefepime, DuoNeb treatments, consults with pulmonary medicine and nephrology. 06/05: Patient is seen today on the [facility] floor, he continues to have significant mental status changes and not improved from yesterday. CAT scan of the brain without contrast ordered but was nondiagnostic. Patient has been seen by nephrology and undergoing hemodialysis today. Due to confusion and inability to concentrate, one dose of IV Ativan ordered. Patient has been seen by pulmonary medicine and cefepime transitioned to IV Zosyn. nurse monitoring remains atrial fibrillation with controlled rate. Last evening, Cardizem drip was started at 5 mg per hour as heart rate was in the 180s and pulse ox dropped down to 86% and 2 L nasal cannula was applied. Today, patient is unable to take any of his oral medications due to his mental status. His temperature max has been 102.3, heart rate now at 87, blood pressure 142/87, pulse ox 93% on room air. Consult added for cardiology although heart rate is controlled at this time. Patient is continued on Cardizem drip due to inability to take oral medications. 06/06: Patient is found sleeping in his bed this morning. He does wake up opens his eyes and answering questions with one-word answers. He is able to drink water without any signs of coughing or choking. He does have a speech therapy evaluation scheduled for today. Patient is continued on IV Zosyn and IV vancomycin. Blood work from yesterday revealed WBC of 15.4, hemoglobin 10.1 and platelet count 165. Sodium 138, potassium 5.3, chloride 100, CO2 23, BUN 42 and creatinine 7.05. Blood sugar 125. Ammonia level less than 9. Pro-calcitonin 0.47. Total bilirubin 1.5, AST 33, ALT 11, alkaline phosphatase 71. Consult was added yesterday for neurology due to concern for ongoing mental status changes and patient not improving after starting antibiotics. Patient was seen by Dr. Beck for suspected encephalopathy, EEG and repeat CAT scan have been ordered and anesthesia for CSF study. Patient's last dose of Xarelto would have been on 06/03. Neurologys added in infectious disease as well. Patient is scheduled for hemodialysis tomorrow. Dr. Roldan is recommending continuing vancomycin and Zosyn while waiting for cultures finalized.blood cultures are showing no growth after 24 hours 1 specimen. Cardiology consult was added yesterday for A. fib with RVR. Patient remains on Cardizem drip. He has not been started on oral medications as of yet and waiting for speech therapy evaluation but suspect the patient will be started on orals today. 06/07: Patient is sitting up in bed more awake he is eating pureed diet and drink water without issues, has been on Zosyn 3.375 grIVPB Q 8 h for possible gram negative pneumonia, likely due to aspiration, we will continue with monitoring and he will likely be going back to [facility] next week, we will keep on IV heparin, no need for LP at this point REVIEW OF SYSTEMS Constitutional: Reported fever, reported chills, no night sweats. No weight change. Reported weakness, reported fatigue reported lethargy. Reported daytime sleepiness. HEENT: No headache. No blurred vision or double vision, no loss of vision. No loss of Hearing, no ringing in the ears, no dizziness. No nasal drainage or congestion. No epistaxis. No sore throat. Lungs: No shortness of breath, noted cough, minimal sputum production. No wheezing. Cardiovascular: No chest pain, no lower extremity edema. No palpitations. No paroxysmal nocturnal dyspnea. No orthopnea. No lightheadedness or dizziness. No syncopal episodes. Abdominal: No abdominal pain. No nausea, vomiting. No diarrhea. No constipation. No bloody or tarry stools.. No loss of appetite. Genitourinary: No dysuria, increased frequency, urgency. No urinary retention. Musculoskeletal: No myalgias. No muscle weakness, no gait dysfunction, no frequent falls. No back pain. No neck pain. Integumentary: No wounds, no lesions. No rash or pruritus. No unusual bruising. No change in hair or nails. Neurologic: Reported aphasia. No facial droop. Noted change in mentationimproving . No head injury. No headache. No paralysis. No paresthesia. Psychiatric: No depression. No anxiety. No mood swings. Endocrine: No abnormal blood sugars. No weight change. No excessive sweating or thirst. No cold intolerance. PHYSICAL EXAMINATION Gen: This is a 75-year-old obese male. He is resting in bed and appears to be in no acute distress but stuporous HEENT: Head is atraumatic, normocephalic. Pupils equal, round. Sclerae is anicteric, mucous membranes of the mouth are dry. NECK: Supple. No JVD. No lymphadenopathy. No thyromegaly. LUNGS: Decreased breath sounds at the bases. No crackles, no wheezes. No intercostal retractions, positive for ronchi to the left lower third. HEART: First heart sound is depressed, second heart sound is normal, there is systolic ejection murmur 2/6 located in the left sternal border. Tachycardic and irregular. ABDOMEN: Soft. Bowel sounds are present. No masses. No tenderness. Lay catheter in place with small amount of urine output. EXTREMITIES: No pedal edema. No calf tenderness. Dorsalis pedis +1 bilaterally. NEUROLOGICAL: Patient awake, alert, able to follow a few simple commands, able to drink water this morning from a straw without coughing or choking. Patient is confused. ASSESSMENT AND PLAN 1. Metabolic encephalopathy secondary to aspiration pneumonia. consult with neurology. Anesthesia for cerebral spinal fluid test/LP. Infectious disease consult was added. 2. Acute hypoxic respiratory failure secondary to A. fib with RVR and aspiration pneumonia. discontinue cardizem drip and restart Metoprolol 50 mg po bid, we will continue with Zosyn 3.375 gr IVPB q 8 hours. 3. Aspiration pneumonia and sepsis. Continue with Zosyn, DuoNeb treatments every 4 hours as needed, consult with pulmonary medicine appreciated. 4. Lactic acidosis secondary to pneumonia. Continue treatment as a #2. 5. Atrial fibrillation with RVR, paroxysmal atrial fibrillation, status post IV Lopressor. continue with Metoprolol 50 mg po bid and heparin drip , discontinue cardizem drip. 6. Acute on chronic diastolic heart failure. we will continue with Metoprolol 50 mg orally bid, HD and discontinue Demadex 6. History of CVA. we will resume Atorvastatin 10 mg po daily, no need for LP , patient may go back on Plavix. 7. End-stage renal disease on hemodialysis. Consult with nephrology alonzo douglas. Patient undergoing hemodialysis today. 8. Hypertension, hypertensive cardiovascular disease.we will restart Metoprolol 50 mg po bid. 9. Hyperlipidemia. Continue atorvastatin 10 mg po daily. 10. History of coronary artery disease status post PCI. Patient unable to take oral medication: Imdur 30 mg daily, Lipitor, continue Lopressor 50 mg orally bid. 11. Moderate intermittent asthma, stable. Continue Pulmicort 0.5 mg twice daily, Mucinex 1200 mg oral every 12 hours as needed for cough, DuoNeb treatments. 12. Benign prostatic hypertrophy. Lay was placed in the emergency center for a urine specimen. 13. Gastroesophageal reflux disease. Continue PPI. 14. DVT prophylaxis. we will continue with heparin dip for now. 15. Overall prognosis is guarded. 16. Full code. 17. PT evaluation. 18. tray worker consult for discharge planning. Objective - Vital Signs Vital signs: Vital Signs Temp 98.7 F 06/06/22 20:00 Pulse 72 06/07/22 08:23 Resp 16 06/07/22 04:00 BP 118/67 06/07/22 04:00 Pulse Ox 96 06/07/22 04:00 FiO2 Intake & Output 06/06/22 06/07/22 06/07/22 18:59 06:59 18:59 Intake Total 729.539 631.117 Output Total 50 500 Balance 679.539 131.117 Weight 91.5 kg Intake: Intake, IV Titration 189.539 146.117 Amount Diltiazem 125 mg In 125 31.917 Sodium Chloride 0.9% 100 ml @ 5 MG/HR 5 mls/hr IV .Q24H [facility] Rx#:[id number] Heparin Sod,Pork in 0.45% 64.539 114.2 NaCl 25,000 unit In 0.45 % NaCl 1 250ml.bag @ 11. 37 UNITS/KG/HR 10.006 mls /hr IV .Q24H [facility] Rx#: [id number] Oral 540 485 Output: Urine 50 500 Uretheral (Lay) 50 Other: Voiding Method Diaper Diaper # Voids 0 0 - Labs CBC & Chem 7: 06/07/22 06:26 06/07/22 06:26 Labs: Abnormal Lab Results - Last 24 Hours (Table) 06/06/22 06/06/22 06/07/22 Range/Units 09:17 17:07 00:05 RBC (4.30-5.90) m/uL Hgb (13.0-17.5) gm/dL Hct (39.0-53.0) % RDW (11.5-15.5) % Plt Count (150-450) k/uL PT (9.0-12.0) sec INR (<1.2) APTT 42.4 H 54.7 H (22.0-30.0) sec Carbon Dioxide (22-30) mmol/L BUN (9-20) mg/dL Creatinine 7.21 H* (0.66-1.25) mg/dL Albumin (3.5-5.0) g/dL 06/07/22 06/07/22 06/07/22 Range/Units 06:26 06:26 06:26 RBC 3.02 L (4.30-5.90) m/uL Hgb 9.0 L (13.0-17.5) gm/dL Hct 28.7 L (39.0-53.0) % RDW 16.0 H (11.5-15.5) % Plt Count 141 L (150-450) k/uL PT 14.6 H (9.0-12.0) sec INR 1.4 H (<1.2) APTT 61.0 H (22.0-30.0) sec Carbon Dioxide 21 L (22-30) mmol/L BUN 48 H (9-20) mg/dL Creatinine 8.03 H* (0.66-1.25) mg/dL Albumin 3.0 L (3.5-5.0) g/dL Microbiology - Last 24 Hours (Table) 06/04/22 11:08 Blood Culture - Preliminary Blood No Growth after 48 hours 06/04/22 11:08 Blood Culture - Preliminary Blood No Growth after 48 hours
[2022-06-07] MEDS: TORSEMIDE 20 MG TAB PO SCH (10:28)
--- NOTE | 2022-06-07 11:09 | P.PN ---
Subjective Patient is seen on hemodialysis. Patient is tolerating his treatment well. Awake comfortable not in any acute distress Objective - Vital Signs Vital signs: Vital Signs Temp 97.9 F 06/07/22 08:00 Pulse 72 06/07/22 08:23 Resp 14 06/07/22 08:00 BP 146/64 06/07/22 08:00 Pulse Ox 96 06/07/22 08:00 FiO2 Intake & Output 06/06/22 06/07/22 06/07/22 18:59 06:59 18:59 Intake Total 729.539 631.117 Output Total 50 500 Balance 679.539 131.117 Weight 91.5 kg Intake: Intake, IV Titration 189.539 146.117 Amount Diltiazem 125 mg In 125 31.917 Sodium Chloride 0.9% 100 ml @ 5 MG/HR 5 mls/hr IV .Q24H [facility] Rx#:[id number] Heparin Sod,Pork in 0.45% 64.539 114.2 NaCl 25,000 unit In 0.45 % NaCl 1 250ml.bag @ 11. 37 UNITS/KG/HR 10.006 mls /hr IV .Q24H [facility] Rx#: [id number] Oral 540 485 Output: Urine 50 500 Uretheral (Lay) 50 Other: Voiding Method Diaper Diaper Diaper # Voids 0 0 0 # Bowel Movements 0 - Exam Patient is awake, comfortable Examination of the heart S1 and S2 Examination of the lungs bilateral breath sounds are heard Abdomen is soft nontender Examination of lower extremities shows no significant edema LIVE IN CAREGIVER exam grossly intact. Patient is moving all 4 extremities. - Labs CBC & Chem 7: 06/07/22 06:26 06/07/22 06:26 Labs: Abnormal Lab Results - Last 24 Hours (Table) 06/06/22 06/06/22 06/07/22 Range/Units 09:17 17:07 00:05 RBC (4.30-5.90) m/uL Hgb (13.0-17.5) gm/dL Hct (39.0-53.0) % RDW (11.5-15.5) % Plt Count (150-450) k/uL PT (9.0-12.0) sec INR (<1.2) APTT 42.4 H 54.7 H (22.0-30.0) sec Carbon Dioxide (22-30) mmol/L BUN (9-20) mg/dL Creatinine 7.21 H* (0.66-1.25) mg/dL Albumin (3.5-5.0) g/dL 06/07/22 06/07/22 06/07/22 Range/Units 06:26 06:26 06:26 RBC 3.02 L (4.30-5.90) m/uL Hgb 9.0 L (13.0-17.5) gm/dL Hct 28.7 L (39.0-53.0) % RDW 16.0 H (11.5-15.5) % Plt Count 141 L (150-450) k/uL PT 14.6 H (9.0-12.0) sec INR 1.4 H (<1.2) APTT 61.0 H (22.0-30.0) sec Carbon Dioxide 21 L (22-30) mmol/L BUN 48 H (9-20) mg/dL Creatinine 8.03 H* (0.66-1.25) mg/dL Albumin 3.0 L (3.5-5.0) g/dL Microbiology - Last 24 Hours (Table) 06/04/22 11:08 Blood Culture - Preliminary Blood No Growth after 48 hours 06/04/22 11:08 Blood Culture - Preliminary Blood No Growth after 48 hours Assessment and Plan Assessment: 1. End-stage renal disease maintained on hemodialysis on Thursday schedule. Patient has AV fistula. 2. Altered mental status. Possibly medication effect versus infection. Improved. LP pending. ID following. 3. Chronic kidney disease mineral bone disease maintained on Renvela. Phos phorus 4.1. 4. Fever. Possible pneumonia. On antibiotics. 5. A. fib with RVR maintained on Cardizem drip. 6. Chronic diastolic CHF. 7. Anemia of chronic kidney disease. Hemoglobin 10.1 yesterday. 8. History of coronary artery disease. Plan: Hemodialysis today goal UF about 2-2.5 L as tolerated.
--- NOTE | 2022-06-07 11:36 | P.PN ---
Subjective Progress Note Date: 06/07/22 The patient is seen at bedside and today per nurse he is doing better. He is more responsive to nursing staff. Objective - Vital Signs Vital signs: Vital Signs Temp 97.9 F 06/07/22 08:00 Pulse 72 06/07/22 08:23 Resp 14 06/07/22 08:00 BP 146/64 06/07/22 08:00 Pulse Ox 96 06/07/22 08:00 FiO2 Intake & Output 06/06/22 06/07/22 06/07/22 18:59 06:59 18:59 Intake Total 729.539 631.117 Output Total 50 500 Balance 679.539 131.117 Weight 91.5 kg Intake: Intake, IV Titration 189.539 146.117 Amount Diltiazem 125 mg In 125 31.917 Sodium Chloride 0.9% 100 ml @ 5 MG/HR 5 mls/hr IV .Q24H [facility] Rx#:[id number] Heparin Sod,Pork in 0.45% 64.539 114.2 NaCl 25,000 unit In 0.45 % NaCl 1 250ml.bag @ 11. 37 UNITS/KG/HR 10.006 mls /hr IV .Q24H [facility] Rx#: [id number] Oral 540 485 Output: Urine 50 500 Uretheral (Lay) 50 Other: Voiding Method Diaper Diaper Diaper # Voids 0 0 0 # Bowel Movements 0 - Exam GENERAL: The patient is lying in bed and does not appear in acute distress. NEUROLOGICAL: Higher mental function: The patient is awake, alert, oriented to self and correctly stated he was in the hospital. He was able to name objects (pen and phone). He is following simple commands. No neglect and no aphasia from limited langue. Cranial nerves: The pupils are round, equal and reactive to light. Primary gaze is midline but is able to track throughout the room. No facial weakness. No dysarthria. Motor: The strength is lifting all extremities above gravity without any noticeable focality but hard to assess individual because of cooperation. Some of the workup during this hospital visit consisted of Pereira virus PCR was not detected Influenza A and B PCR was not detected CT of the head on 06/05/2022 which is reported as nondiagnostic exam due to extreme artifact. Cannot assess for hemorrhage or acute process. Suggestion of degenerative change and remote left frontal infarct. I personally reviewed that the CT and I agree there is a lot of motion artifact but I was able to appreciate the left frontal old stroke. TSH: 1.810 Ammonia <[address] of the head is reported as no acute intracranial hemorrhage or midline shift. There is mild to moderate diffuse age-related cerebral atrophy and mild chronic small vessel ischemic changes along with left frontal lobe infarct old redemonstrated. Less motion artifact on the study one day at earlier otherwise no significant change. Clint EEG on the 06/06/2022 is abnormal. The back or slowing suggestive of moderate encephalopathy. Otherwise there is no focal slowing, epileptiform discharges or seizure on the EEG - Labs CBC & Chem 7: 06/07/22 06:26 06/07/22 06:26 Labs: Abnormal Lab Results - Last 24 Hours (Table) 06/06/22 06/07/22 06/07/22 Range/Units 17:07 00:05 06:26 RBC (4.30-5.90) m/uL Hgb (13.0-17.5) gm/dL Hct (39.0-53.0) % RDW (11.5-15.5) % Plt Count (150-450) k/uL PT (9.0-12.0) sec INR (<1.2) APTT 42.4 H 54.7 H (22.0-30.0) sec Carbon Dioxide 21 L (22-30) mmol/L BUN 48 H (9-20) mg/dL Creatinine 8.03 H* (0.66-1.25) mg/dL Albumin 3.0 L (3.5-5.0) g/dL 06/07/22 06/07/22 Range/Units 06:26 06:26 RBC 3.02 L (4.30-5.90) m/uL Hgb 9.0 L (13.0-17.5) gm/dL Hct 28.7 L (39.0-53.0) % RDW 16.0 H (11.5-15.5) % Plt Count 141 L (150-450) k/uL PT 14.6 H (9.0-12.0) sec INR 1.4 H (<1.2) APTT 61.0 H (22.0-30.0) sec Carbon Dioxide (22-30) mmol/L BUN (9-20) mg/dL Creatinine (0.66-1.25) mg/dL Albumin (3.5-5.0) g/dL Microbiology - Last 24 Hours (Table) 06/04/22 11:08 Blood Culture - Preliminary Blood No Growth after 48 hours 06/04/22 11:08 Blood Culture - Preliminary Blood No Growth after 48 hours Assessment and Plan Assessment: This is a 76-year-old gentleman who presented because of cough, reported hypoxia and confusion. He had elevated fever or leukocytosis. He's been having recurrent falls at home Altered mental status: encephalopathy of unknown etiology. Possible aspiration pneumonia. Does not appear meningoencephalitis. His mentation is drastically improving compared to 2-3 days ago. Recurrent falls of unknown etiology History of atrial fibrillation on Xarelto History of stroke over the left frontal on June 2021 with speech difficulty End-stage renal disease on dialysis Plan: From a neurology perspective lumbar puncture is not needed since it is not felt the patient has meningeal encephalitis and I spoke with ID he is in agreement. She mentation is drastically better today compared to to 3 days ago. We can resume Xarelto on Plavix from a neurology perspective He is on vancomycin and Zosyn and ID is on board and we'll defer antibiotic management to the ID team. Pulmonary team is consulted Nephrology team is on board We'll defer the rest of the medical management to primary team The plan was discussed with the patient nurse Alexander Beck M.D. Neuro-hospitalist Time with Patient: Less than 30
--- NOTE | 2022-06-07 12:06 | P.PN ---
Subjective Progress Note Date: 06/07/22 Patient is seen resting comfortably in bed today with no signs of acute distress. He denies chest pain or increased shortness of breath. Patient is getting dialyzed at the time of exam. He remains in atrial fibrillation on the monitor with a controlled heart rate in the 70s. Patient is able to tolerate oral medication crushed. Will transition him to oral anticoagulation. Will discontinue Cardizem drip and start Nitropaste. Objective - Vital Signs Vital signs: Vital Signs Temp 97.9 F 06/07/22 08:00 Pulse 72 06/07/22 08:23 Resp 14 06/07/22 08:00 BP 146/64 06/07/22 08:00 Pulse Ox 96 06/07/22 08:00 FiO2 Intake & Output 06/06/22 06/07/22 06/07/22 18:59 06:59 18:59 Intake Total 729.539 631.117 Output Total 50 500 Balance 679.539 131.117 Weight 91.5 kg Intake: Intake, IV Titration 189.539 146.117 Amount Diltiazem 125 mg In 125 31.917 Sodium Chloride 0.9% 100 ml @ 5 MG/HR 5 mls/hr IV .Q24H [facility] Rx#:[id number] Heparin Sod,Pork in 0.45% 64.539 114.2 NaCl 25,000 unit In 0.45 % NaCl 1 250ml.bag @ 11. 37 UNITS/KG/HR 10.006 mls /hr IV .Q24H [facility] Rx#: [id number] Oral 540 485 Output: Urine 50 500 Uretheral (Lay) 50 Other: Voiding Method Diaper Diaper Diaper # Voids 0 0 0 # Bowel Movements 0 - Exam PHYSICAL EXAM: VITAL SIGNS: Reviewed. GENERAL: Well-developed in no acute distress. HEENT: Head is normocephalic. Pupils are equal, round. Sclerae anicteric. Mucous membranes of the mouth are moist. NECK: Supple. No JVD or thyromegaly RESPIRATORY: Respirations even and unlabored. Lungs diminished to auscultation bilaterally. CARDIO: Regular rate and rhythm. S1 and S2 heard. No murmur or gallops. EXTREMITIES: Normal range of motion. No clubbing or cyanosis. Peripheral pulses intact. Negative for bilateral lower extremity edema NEURO: Orientated to person, time, mood is appropriate - Labs CBC & Chem 7: 06/07/22 06:26 06/07/22 06:26 Labs: Abnormal Lab Results - Last 24 Hours (Table) 06/06/22 06/07/22 06/07/22 Range/Units 17:07 00:05 06:26 RBC (4.30-5.90) m/uL Hgb (13.0-17.5) gm/dL Hct (39.0-53.0) % RDW (11.5-15.5) % Plt Count (150-450) k/uL PT (9.0-12.0) sec INR (<1.2) APTT 42.4 H 54.7 H (22.0-30.0) sec Carbon Dioxide 21 L (22-30) mmol/L BUN 48 H (9-20) mg/dL Creatinine 8.03 H* (0.66-1.25) mg/dL Albumin 3.0 L (3.5-5.0) g/dL 06/07/22 06/07/22 Range/Units 06:26 06:26 RBC 3.02 L (4.30-5.90) m/uL Hgb 9.0 L (13.0-17.5) gm/dL Hct 28.7 L (39.0-53.0) % RDW 16.0 H (11.5-15.5) % Plt Count 141 L (150-450) k/uL PT 14.6 H (9.0-12.0) sec INR 1.4 H (<1.2) APTT 61.0 H (22.0-30.0) sec Carbon Dioxide (22-30) mmol/L BUN (9-20) mg/dL Creatinine (0.66-1.25) mg/dL Albumin (3.5-5.0) g/dL Microbiology - Last 24 Hours (Table) 06/04/22 11:08 Blood Culture - Preliminary Blood No Growth after 48 hours 06/04/22 11:08 Blood Culture - Preliminary Blood No Growth after 48 hours Assessment and Plan Assessment: Paroxysmal atrial fibrillation with RVR, on Xarelto Pneumonia Leukocytosis Altered mental status Hypoxia History of CVA 06/2021 End stage renal disease on dialysis Hypertension Dyslipidemia Coronary artery disease status post PCI to mid LAD in 2003 Plan: Patient is able to tolerate oral medication will transition him to oral anticoagulations Xarelto Will discontinue Cardizem drip and put him on nitro paste 1 inch 3 times a day. Continue with telemetry monitoring Continue with all other current cardiac medications Further recommendations based on clinical course The above impression and plan of care have been discussed and directed by the signing physician. Leann Curry, nurse practitioner, acting as scribe for signing physician.
[2022-06-07] MEDS: PANTOPRAZOLE 40 MG TABLET PO SCH ×2 (14:24→20:19)
[2022-06-07] MEDS: METOPROLOL TARTRATE 50 MG TAB PO SCH ×2 (14:24→20:19)
[2022-06-07] MEDS: PIPERACILLIN-TAZOBACTAM 3.375 GM in SODIUM CHLORIDE 0.9% 100 ML IVPB SCH ×2 (14:25→23:13)
[2022-06-07] MEDS: FINASTERIDE 5 MG TAB PO SCH (14:25)
[2022-06-07] MEDS: RIVAROXABAN 15 MG TAB PO SCH (14:25)
[2022-06-07] MEDS: allopurinoL 100 MG TAB PO SCH (14:25)
[2022-06-07] MEDS: NITROGLYCERIN OINT 1 INCH/GM PACKET TOPICAL SCH ×2 (14:25→23:13)
[2022-06-07] MEDS: SODIUM CHLORIDE 0.9% 1,000 ML IV SCH (14:35)
[2022-06-07] MEDS: ACETAMINOPHEN TAB 325 MG TAB PO PRN (16:57)
[2022-06-07] MEDS: MULTIVITAMINS, THERA 1 EACH TAB PO SCH (20:19)
[2022-06-07] MEDS: LORATADINE 10 MG TAB PO SCH (20:19)
[2022-06-07] MEDS: MONTELUKAST 10 MG TAB PO SCH (20:19)
[2022-06-08] MEDS: SEVELAMER 800 MG TAB PO SCH ×3 (05:33→16:11)
[2022-06-08 06:27] LABS: Basophils % (A) 1 %; Eosinophils # (A) 0.4 k/uL (0-0.7); Eosinophils % (A) 5 %; Hypochromasia Moderate; Lymphocytes # (A) 1.1 k/uL (1.0-4.8); Lymphocytes % (A) 13 %; MCH 30.9 pg (25.0-35.0); MCHC 32.3 g/dL (31.0-37.0); MCV 95.7 fL (80.0-100.0); Mean Platelet Volume 8.9; Monocytes # (A) 0.6 k/uL (0-1.0); Monocytes % (A) 7 %; Neutrophils # (A) 5.9 k/uL (1.3-7.7); Neutrophils % (A) 73 %; Platelet Count 151 k/uL (150-450); RBC 3.24 m/uL (4.30-5.90); RDW 15.7 % (11.5-15.5); WBC 8.1 k/uL (3.8-10.6)
[2022-06-08 06:46] LABS: Albumin 3.3 g/dL (3.5-5.0); Potassium 3.5 mmol/L (3.5-5.1); Total Bilirubin 1.2 mg/dL (0.2-1.3); Total Protein 6.9 g/dL (6.3-8.2)
[2022-06-08] MEDS: DOCUSATE 100 MG CAP PO SCH ×2 (08:10→20:26)
[2022-06-08] MEDS: BUDESONIDE 0.5 MG/2 ML NEBU INHALATION SCH ×2 (08:24→19:31)
[2022-06-08] MEDS: IPRATROPIUM-ALBUTEROL 3 ML NEB INHALATION PRN ×2 (08:24→19:31)
[2022-06-08] MEDS: FINASTERIDE 5 MG TAB PO SCH (08:29)
[2022-06-08] MEDS: allopurinoL 100 MG TAB PO SCH (08:29)
[2022-06-08] MEDS: METOPROLOL TARTRATE 50 MG TAB PO SCH ×2 (08:29→20:28)
[2022-06-08] MEDS: PANTOPRAZOLE 40 MG TABLET PO SCH ×2 (08:29→20:28)
[2022-06-08] MEDS: ISOSORBIDE MONONITRATE ER 30 MG TAB.ER.24H PO SCH (08:29)
[2022-06-08] MEDS: NITROGLYCERIN OINT 1 INCH/GM PACKET TOPICAL SCH ×3 (08:30→23:20)
--- NOTE | 2022-06-08 09:55 | P.PN ---
Subjective Patient is seen for follow-up for end-stage renal disease He tolerated his treatment well yesterday. UF of 2 L. No significant complaints today Awake comfortable not in any acute distress Objective - Vital Signs Vital signs: Vital Signs Temp 97.9 F 06/07/22 20:00 Pulse 78 06/08/22 08:40 Resp 16 06/08/22 04:00 BP 122/68 06/08/22 04:00 Pulse Ox 98 06/08/22 04:00 FiO2 Intake & Output 06/07/22 06/08/22 06/08/22 18:59 06:59 18:59 Intake Total 900 250 Output Total 1999 Balance -1100 250 Weight 83 kg Intake: Intake, IV Titration 360 Amount Piperacillin-Tazobactam 3 200 .375 gm In Sodium Chloride 0.9% 100 ml @ 25 mls/hr IVPB Q12H [facility] Rx# :[id number] Sodium Chloride 0.9% 1, 160 000 ml @ 20 mls/hr IV . 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 Patient is moving all 4 extremities. - Labs CBC & Chem 7: 06/08/22 05:32 06/08/22 05:32 Labs: Abnormal Lab Results - Last 24 Hours (Table) 06/08/22 06/08/22 06/08/22 Range/Units 05:32 05:32 05:32 RBC 3.24 L (4.30-5.90) m/uL Hgb 10.0 L (13.0-17.5) gm/dL Hct 31.0 L (39.0-53.0) % RDW 15.7 H (11.5-15.5) % APTT 33.6 H (22.0-30.0) sec Creatinine 4.40 H (0.66-1.25) mg/dL Glucose 104 H (74-99) mg/dL Albumin 3.3 L (3.5-5.0) g/dL Microbiology - Last 24 Hours (Table) 06/04/22 11:08 Blood Culture - Preliminary Blood No Growth after 72 hours 06/04/22 11:08 Blood Culture - Preliminary Blood No Growth after 72 hours Assessment and Plan Assessment: 1. End-stage renal disease maintained on hemodialysis on Thursday schedule. Patient has AV fistula. 2. Altered mental status. Possibly medication effect versus infection. Improved. LP pending. ID following. 3. Chronic kidney disease mineral bone disease maintained on Renvela. Phosph orus 4.1. 4. Fever. Possible pneumonia. On antibiotics. 5. A. fib with RVR maintained on Cardizem drip. 6. Chronic diastolic CHF. 7. Anemia of chronic kidney disease. Hemoglobin 10.0 8. History of coronary artery disease. Plan: Next hemodialysis on 06/10/2022
--- NOTE | 2022-06-08 11:10 | P.PN ---
Subjective Progress Note Date: 06/08/22 HISTORY OF PRESENT ILLNESS This is a 76-year-old male patient with a previous medical history significant for hypertension and hypertensive cardiovascular disease, hyperlipidemia, end- stage renal disease on hemodialysis Thursday and Thursday, history of asthma/COPD, history of CAD post-PCI, history of ankylosing spondylitis, obstructive sleep apnea on a CPAP, CVA. Patient had CVA in June 2021 followed by a long stay at [facility] for subacute rehab. Patient was eventually discharged home and approximately January 2022 to live with his . She states that he did have 2 falls back in February but none in March and April, this month patient has had 5 falls requiring EMS to come and help her get him up. On Thursday and the morning she heard a crash and found him in the bathroom was jammed behind the door. He was able to pull himself up and denied having any pain or injury. Patient went back to bed and when he got for breakfast she heard that he had another fall but this time he had hit his head. EMS picked the patient brought him to [facility]. Patient apparently underwent a CAT scan of the head and neck which were negative. He was prepared for discharge home but he was scheduled for an EGD with Dr. Mendoza on Thursday which is done every 2 years due to Prabhakar's esophagus and it was decided the patient would stay and undergo EGD. The procedure was uneventful but patient had difficulty waking from anesthesia following. He ended up staying another day and was discharged home yesterday. Patient was apparently in his normal state of health and awake and alert when he came home was not having any issues at all. They had dinner together he watch some TV and went to bed around 10 PM. He was started on a new medication, Seroquel 12.5 mg at bedtime which she gave to him before bed. When patient woke up he was having significant cough around 5:45 in the morning. He was able go back to sleep until about 8 AM but she noticed a significant change in his mental status. His last hemodialysis was yesterday and usual schedule is Thursday. Patient was found have a temperature 100.3, heart rate documented at 120 [address] jonatan also at 150 with A. fib with RVR and was given metoprolol 5 mg IV push with improvement down to 110s to 120s for heart rate. Blood pressure initially 143/100, pulse ox 100% on 4 L nasal cannula. WBC 11.4, hemoglobin 10.4, platelet count 201. INR 1.4. Sodium 130, potassium 4.7, chloride 96, CO2 25, BUN 28 creatinine was 5.49. Blood sugar 166. Lactic acid 2.5. Magnesium 1.7. Total bilirubin 1.3, AST 19, ALT 12, alkaline phosphatase 94. Troponin 0.031. ProBNP 30,400. Albumin 3.7. Urinalysis was clear with nitrate and leukoesterase negative. Coronavirus PCR, influenza A, influenza B all were not detected. Lay catheter was placed as a urinalysis was required in the emergency center. Chest x-ray correlate for heart failure consider diffuse interstitial and alveolar pneumonia. Patient was started on cefepime, DuoNeb treatments, consults with pulmonary medicine and nephrology. 06/05: Patient is seen today on the [facility] floor, he continues to have significant mental status changes and not improved from yesterday. CAT scan of the brain without contrast ordered but was nondiagnostic. Patient has been seen by nephrology and undergoing hemodialysis today. Due to confusion and inability to concentrate, one dose of IV Ativan ordered. Patient has been seen by pulmonary medicine and cefepime transitioned to IV Zosyn. 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 Last evening, Cardizem drip was started at 5 mg per hour as heart rate was in the 180s and pulse ox dropped down to 86% and 2 L nasal cannula was applied. Today, patient is unable to take any of his oral medications due to his mental status. His temperature max has been 102.3, heart rate now at 87, blood pressure 142/87, pulse ox 93% on room air. Consult added for cardiology although heart rate is controlled at this time. Patient is continued on Cardizem drip due to inability to take oral medications. 06/06: Patient is found sleeping in his bed this morning. He does wake up opens his eyes and answering questions with one-word answers. He is able to drink water without any signs of coughing or choking. He does have a speech therapy evaluation scheduled for today. Patient is continued on IV Zosyn and IV vancomycin. Blood work from yesterday revealed WBC of 15.4, hemoglobin 10.1 and platelet count 165. Sodium 138, potassium 5.3, chloride 100, CO2 23, BUN 42 and creatinine 7.05. Blood sugar 125. Ammonia level less than 9. Pro-calcitonin 0.47. Total bilirubin 1.5, AST 33, ALT 11, alkaline phosphatase 71. Consult was added yesterday for neurology due to concern for ongoing mental status changes and patient not improving after starting antibiotics. Patient was seen by Dr. Beck for suspected encephalopathy, EEG and repeat CAT scan have been ordered and anesthesia for CSF study. Patient's last dose of Xarelto would have been on 06/03. Neurologys added in infectious disease as well. Patient is scheduled for hemodialysis tomorrow. Dr. Roldan is recommending continuing vancomycin and Zosyn while waiting for cultures finalized.blood cultures are showing no growth after 24 hours 1 specimen. Cardiology consult was added yesterday for A. fib with RVR. Patient remains on Cardizem drip. He has not been started on oral medications as of yet and waiting for speech therapy evaluation but suspect the patient will be started on orals today. 06/07: Patient is sitting up in bed more awake he is eating pureed diet and drink water without issues, has been on Zosyn 3.375 grIVPB Q 8 h for possible gram negative pneumonia, likely due to aspiration, we will continue with monitoring and he will likely be going back to [facility] next week, we will keep on IV heparin, no need for LP at this point 06/08: Patient is laying down in bed in no apparent distress, he is feeling a lot better today, I spoke with his and given updated about his current condition, he'll likely require to go to subacute rehabilitation she elected to go to [facility] at this time, continue current treatment plan, patient is to resume his medication he is currently off heparin drip, his back on Xarelto, patient back on Plavix 75 mg once every day CAD and stroke prevention as well, we'll continue to monitor the patient very closely. REVIEW OF SYSTEMS Constitutional: Reported fever, reported chills, no night sweats. No weight change. Reported weakness, reported fatigue reported lethargy. Reported daytime sleepiness. HEENT: No headache. No blurred vision or double vision, no loss of vision. No loss of Hearing, no ringing in the ears, no dizziness. No nasal drainage or congestion. No epistaxis. No sore throat. Lungs: No shortness of breath, noted cough, minimal sputum production. No wheezing. Cardiovascular: No chest pain, no lower extremity edema. No palpitations. No paroxysmal nocturnal dyspnea. No orthopnea. No lightheadedness or dizziness. No syncopal episodes. Abdominal: No abdominal pain. No nausea, vomiting. No diarrhea. No constipation. No bloody or tarry stools.. No loss of appetite. Genitourinary: No dysuria, increased frequency, urgency. No urinary retention. Musculoskeletal: No myalgias. No muscle weakness, no gait dysfunction, no frequent falls. No back pain. No neck pain. Integumentary: No wounds, no lesions. No rash or pruritus. No unusual bruising. No change in hair or nails. Neurologic: Reported aphasia. No facial droop. Noted change in mentationimproving . No head injury. No headache. No paralysis. No paresthesia. Psychiatric: No depression. No anxiety. No mood swings. Endocrine: No abnormal blood sugars. No weight change. No excessive sweating or thirst. No cold intolerance. PHYSICAL EXAMINATION Gen: This is a 75-year-old obese male. He is resting in bed and appears to be in no acute distress but stuporous HEENT: Head is atraumatic, normocephalic. Pupils equal, round. Sclerae is anicteric, mucous membranes of the mouth are dry. NECK: Supple. No JVD. No lymphadenopathy. No thyromegaly. LUNGS: Decreased breath sounds at the bases. No crackles, no wheezes. No intercostal retractions, positive for ronchi to the left lower third. HEART: First heart sound is depressed, second heart sound is normal, there is systolic ejection murmur 2/6 located in the left sternal border. Tachycardic and irregular. ABDOMEN: Soft. Bowel sounds are present. No masses. No tenderness. Lay catheter in place with small amount of urine output. EXTREMITIES: No pedal edema. No calf tenderness. Dorsalis pedis +1 bilaterally. NEUROLOGICAL: Patient awake, alert, able to follow a few simple commands, able to drink water this morning from a straw without coughing or choking. Patient is confused. ASSESSMENT AND PLAN 1. Metabolic encephalopathy secondary to aspiration pneumonia. Resolved, no need for lumbar puncture at this time resume Plavix 75 mg once every day. 2. Acute hypoxic respiratory failure secondary to A. fib with RVR and aspiration pneumonia. continue Metoprolol 50 mg po bid, we will continue with Zosyn 3.375 gr IVPB q 8 hours, continue Xarelto 15 mg orally daily 3. Aspiration pneumonia and sepsis. Continue with Zosyn, DuoNeb treatments every 4 hours as needed, consult with pulmonary medicine appreciated. 4. Lactic acidosis secondary to pneumonia. Continue treatment as a #2. 5. Atrial fibrillation with RVR, paroxysmal atrial fibrillation, status post IV Lopressor. continue with Metoprolol 50 mg po bid, continue Xarelto 15 mg once every day. 6. Acute on chronic diastolic heart failure. we will continue with Metoprolol 50 mg orally bid, continue hemodialysis. 6. History of CVA. we will resume Atorvastatin 10 mg po daily, resume clopidogrel 75 mg once every day. 7. End-stage renal disease on hemodialysis. Consult with nephrology appreciated. Patient undergoing hemodialysis. 8. Hypertension, hypertensive cardiovascular disease.we will restart Metoprolol 50 mg po bid. 9. Hyperlipidemia. Continue atorvastatin 10 mg po daily. 10. History of coronary artery disease status post PCI. Patient unable to take oral medication: Imdur 30 mg daily, Lipitor, continue Lopressor 50 mg orally bid and clopidogrel 75 mg once every day. 11. Moderate intermittent asthma, stable. Continue Pulmicort 0.5 mg twice daily, Mucinex 1200 mg oral every 12 hours as needed for cough, DuoNeb treatments. 12. Benign prostatic hypertrophy. Stable. 13. Gastroesophageal reflux disease. Continue PPI. 14. DVT prophylaxis. we will continue with Xarelto 15 mg orally daily. 15. Overall prognosis is guarded. 16. Full code. 17. PT evaluation. 18. 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 Objective - Vital Signs Vital signs: Vital Signs Temp 98.1 F 06/08/22 08:00 Pulse 78 06/08/22 08:40 Resp 18 06/08/22 08:00 BP 177/83 06/08/22 08:00 Pulse Ox 98 06/08/22 08:00 FiO2 Intake & Output 06/07/22 06/08/22 06/08/22 18:59 06:59 18:59 Intake Total 900 250 Output Total 2000 Balance -1100 250 Weight 83 kg Intake: Intake, IV Titration 360 Amount Piperacillin-Tazobactam 3 200 .375 gm In Sodium Chloride 0.9% 100 ml @ 25 mls/hr IVPB Q12H COUNT INCLUDES THE [facility] Rx# :[id number] Sodium Chloride 0.9% 1, 160 000 ml @ 20 mls/hr IV . Q24H [facility] Rx#:[id number] Oral 240 250 Hemodialysis 300 Output: Hemodialysis 2000 Other: Voiding Method Diaper Diaper Diaper # Voids 0 2 # Bowel Movements 0 1 - Labs CBC & Chem 7: 06/08/22 05:32 06/08/22 05:32 Labs: Abnormal Lab Results - Last 24 Hours (Table) 06/08/22 06/08/22 06/08/22 Range/Units 05:32 05:32 05:32 RBC 3.24 L (4.30-5.90) m/uL Hgb 10.0 L (13.0-17.5) gm/dL Hct 31.0 L (39.0-53.0) % RDW 15.7 H (11.5-15.5) % APTT 33.6 H (22.0-30.0) sec Creatinine 4.40 H (0.66-1.25) mg/dL Glucose 104 H (74-99) mg/dL Albumin 3.3 L (3.5-5.0) g/dL Microbiology - Last 24 Hours (Table) 06/04/22 11:08 Blood Culture - Preliminary Blood No Growth after 72 hours 06/04/22 11:08 Blood Culture - Preliminary Blood No Growth after 72 hours
--- NOTE | 2022-06-08 11:42 | P.PN ---
Subjective Progress Note Date: 06/08/22 Patient is seen resting comfortably in bed today with no signs of acute distress. He remains in atrial fibrillation on the monitor with a controlled heart rate in the 70-80s. He is on Xarelto for anticoagulation. Creatinine has improved to 4.4. Patient will be dialyzed tomorrow. Objective - Vital Signs Vital signs: Vital Signs Temp 98.1 F 06/08/22 08:00 Pulse 78 06/08/22 08:40 Resp 18 06/08/22 08:00 BP 177/83 06/08/22 08:00 Pulse Ox 98 06/08/22 08:00 FiO2 Intake & Output 06/07/22 06/08/22 06/08/22 18:59 06:59 18:59 Intake Total 900 250 Output Total 2000 Balance -1100 250 Weight 83 kg Intake: Intake, IV Titration 360 Amount Piperacillin-Tazobactam 3 200 .375 gm In Sodium Chloride 0.9% 100 ml @ 25 mls/hr IVPB Q12H [facility] Rx# :[id number] Sodium Chloride 0.9% 1, 160 000 ml @ 20 mls/hr IV . Q24H [facility] Rx#:[id number] Oral 240 250 Hemodialysis 300 Output: Hemodialysis 2000 Other: Voiding Method Diaper Diaper Diaper # Voids 0 2 # Bowel Movements 0 1 - Exam PHYSICAL EXAM: VITAL SIGNS: Reviewed. GENERAL: Well-developed in no acute distress. HEENT: Head is normocephalic. Pupils are equal, round. Sclerae anicteric. Mucous membranes of the mouth are moist. NECK: Supple. No JVD or thyromegaly RESPIRATORY: Respirations even and unlabored. Lungs diminished to auscultation bilaterally. CARDIO: Irregular rhythm. Ejection systolic murmur. S1 and S2 heard. No gallops. EXTREMITIES: Normal range of motion. No clubbing or cyanosis. Peripheral pulses intact. Negative for bilateral lower extremity edema NEURO: Orientated to person, time, mood is appropriate - Labs CBC & Chem 7: 06/08/22 05:32 06/08/22 05:32 Labs: Abnormal Lab Results - Last 24 Hours (Table) 06/08/22 06/08/22 06/08/22 Range/Units 05:32 05:32 05:32 RBC 3.24 L (4.30-5.90) m/uL Hgb 10.0 L (13.0-17.5) gm/dL Hct 31.0 L (39.0-53.0) % RDW 15.7 H (11.5-15.5) % APTT 33.6 H (22.0-30.0) sec Creatinine 4.40 H (0.66-1.25) mg/dL Glucose 104 H (74-99) mg/dL Albumin 3.3 L (3.5-5.0) g/dL Microbiology - Last 24 Hours (Table) 06/04/22 11:08 Blood Culture - Preliminary Blood No Growth after 72 hours 06/04/22 11:08 Blood Culture - Preliminary Blood No Growth after 72 hours Assessment and Plan Assessment: Paroxysmal atrial fibrillation with RVR, on Xarelto Pneumonia Leukocytosis Altered mental status Hypoxia History of CVA 06/2021 End stage renal disease on dialysis Hypertension Dyslipidemia Coronary artery disease status post PCI to mid LAD in 2003 Plan: Continue with Xarelto Continue with telemetry monitoring Continue with all other current cardiac medications Further recommendations based on clinical course The above impression and plan of care have been discussed and directed by the signing physician. Leann Curry, nurse practitioner, acting as scribe for signing physician.
--- NOTE | 2022-06-08 11:46 | P.PN ---
Subjective Progress Note Date: 06/08/22 She seen at bedside and per the patient's nurse she continues to be doing well. Denies any new neurological deficits. His nurse stated that the the primary team is also in agreement that that lumbar puncture is not needed. Objective - Vital Signs Vital signs: Vital Signs Temp 98.1 F 06/08/22 08:00 Pulse 78 06/08/22 08:40 Resp 18 06/08/22 08:00 BP 177/83 06/08/22 08:00 Pulse Ox 98 06/08/22 08:00 FiO2 Intake & Output 06/07/22 06/08/22 06/08/22 18:59 06:59 18:59 Intake Total 900 250 Output Total 2000 Balance -1100 250 Weight 83 kg Intake: Intake, IV Titration 360 Amount Piperacillin-Tazobactam 3 200 .375 gm In Sodium Chloride 0.9% 100 ml @ 25 mls/hr IVPB Q12H [facility] Rx# :[id number] Sodium Chloride 0.9% 1, 160 000 ml @ 20 mls/hr IV . Q24H [facility] Rx#:[id number] Oral 240 250 Hemodialysis 300 Output: Hemodialysis 2000 Other: Voiding Method Diaper Diaper Diaper # Voids 0 2 # Bowel Movements 0 1 - Exam GENERAL: The patient is lying in bed and does not appear in acute distress. NEUROLOGICAL: Higher mental function: The patient is awake, alert, oriented to self and correctly stated he was in the hospital. He was able to name objects (pen and phone). He is following simple commands. No neglect and no aphasia from limi misael langue. Cranial nerves: The pupils are round, equal and reactive to light. Primary gaze is midline but is able to track throughout the room. No facial weakness. No dysarthria. Motor: The strength is lifting all extremities above gravity without any noticeable focality but hard to assess individual because of cooperation. Some of the workup during this hospital visit consisted of Pereira virus PCR was not detected Influenza A and B PCR was not detected CT of the head on 06/05/2022 which is reported as nondiagnostic exam due to extreme artifact. Cannot assess for hemorrhage or acute process. Suggestion of degenerative change and remote left frontal infarct. I personally reviewed that the CT and I agree there is a lot of motion artifact but I was able to appreci ate the left frontal old stroke. TSH: 1.810 Ammonia <[address] of the head is reported as no acute intracranial hemorrhage or midline shift. There is mild to moderate diffuse age-related cerebral atrophy and mild chronic small vessel ischemic changes along with left frontal lobe infarct old redemonstrated. Less motion artifact on the study one day at earlier otherwise no significant change. Routine EEG on the 06/06/2022 is abnormal. The back or slowing suggestive of moderate encephalopathy. Otherwise there is no focal slowing, epileptiform discharges or seizure on the EEG - Labs CBC & Chem 7: 06/08/22 05:32 06/08/22 05:32 Labs: Abnormal Lab Results - Last 24 Hours (Table) 06/08/22 06/08/22 06/08/22 Range/Units 05:32 05:32 05:32 RBC 3.24 L (4.30-5.90) m/uL Hgb 10.0 L (13.0-17.5) gm/dL Hct 31.0 L (39.0-53.0) % RDW 15.7 H (11.5-15.5) % APTT 33.6 H (22.0-30.0) sec Creatinine 4.40 H (0.66-1.25) mg/dL Glucose 104 H (74-99) mg/dL Albumin 3.3 L (3.5-5.0) g/dL Microbiology - Last 24 Hours (Table) 06/04/22 11:08 Blood Culture - Preliminary Blood No Growth after 72 hours 06/04/22 11:08 Blood Culture - Preliminary Blood No Growth after 72 hours Assessment and Plan Assessment: This is a 76-year-old gentleman who presented because of cough, reported hypoxia and confusion. He had elevated fever or leukocytosis. He's been having recurrent falls at home Altered mental status: encephalopathy of unknown etiology. Possible aspiration pneumonia. Does not appear meningoencephalitis. His mentation is drastically improving compared to 3 days ago. Recurrent falls of unknown etiology History of atrial fibrillation on Xarelto History of stroke over the left frontal on June 2021 with speech difficulty End-stage renal disease on dialysis Plan: From a neurology perspective lumbar puncture is not needed since it is not felt the patient has meningeal encephalitis and I spoke with ID he is in agreement. His mentation is drastically better for past two days compared to to 3 days ago. We can resume Xarelto on Plavix from a neurology perspective He is on vancomycin and Zosyn and ID is on board and we'll defer antibiotic management to the ID team. Pulmonary team is consulted Nephrology team is on board We'll defer the rest of the medical management to primary team The plan was discussed with the patient nurse. There is no further neurological workup needed. We'll sign off. Please are consulted. Needed. Dr. Hudson starts neurology service tomorrow A.M. if needed. Alexander Beck M.D. Neuro-hospitalist Time with Patient: Less than 30
[2022-06-08] MEDS: PIPERACILLIN-TAZOBACTAM 3.375 GM in SODIUM CHLORIDE 0.9% 100 ML IVPB SCH ×2 (12:35→23:20)
[2022-06-08] MEDS: RIVAROXABAN 15 MG TAB PO SCH (17:07)
[2022-06-08] MEDS: MULTIVITAMINS, THERA 1 EACH TAB PO SCH (20:28)
[2022-06-08] MEDS: MONTELUKAST 10 MG TAB PO SCH (20:28)
[2022-06-08] MEDS: SODIUM CHLORIDE 0.9% 1,000 ML IV SCH (20:28)
[2022-06-08] MEDS: LORATADINE 10 MG TAB PO SCH (20:28)
[2022-06-09] MEDS: SEVELAMER 800 MG TAB PO SCH ×3 (06:25→17:14)
[2022-06-09] MEDS: IPRATROPIUM-ALBUTEROL 3 ML NEB INHALATION PRN ×2 (07:48→21:08)
[2022-06-09] MEDS: BUDESONIDE 0.5 MG/2 ML NEBU INHALATION SCH ×2 (07:48→21:08)
[2022-06-09] MEDS: METOPROLOL TARTRATE 50 MG TAB PO SCH ×3 (08:29→23:17)
[2022-06-09] MEDS: CLOPIDOGREL 75 MG TAB PO SCH (08:29)
[2022-06-09] MEDS: FINASTERIDE 5 MG TAB PO SCH (08:29)
[2022-06-09] MEDS: allopurinoL 100 MG TAB PO SCH (08:29)
[2022-06-09] MEDS: PANTOPRAZOLE 40 MG TABLET PO SCH ×2 (08:52→20:11)
[2022-06-09] MEDS: DOCUSATE 100 MG CAP PO SCH ×2 (08:52→20:06)
--- NOTE | 2022-06-09 10:57 | P.PN ---
Subjective Patient is seen for follow-up for end-stage renal disease,maintained on Thursday schedule. patient tolerated his treatment well over the weekend No significant complaints today Awake comfortable not in any acute distress Objective - Vital Signs Vital signs: Vital Signs Temp 97.8 F 06/09/22 08:28 Pulse 105 H 06/09/22 08:28 Resp 18 06/09/22 08:28 BP 136/76 06/09/22 08:28 Pulse Ox 99 06/09/22 08:28 FiO2 Intake & Output 06/08/22 06/09/22 06/09/22 18:59 06:59 18:59 Intake Total 315 0 Balance 315 0 Weight 89 kg Intake: Oral 315 0 Other: Voiding Method Diaper Diaper Diaper # Voids 0 2 # Bowel Movements 1 - Exam Patient is awake, comfortable Examination of the heart S1 and S2 Examination of the lungs bilateral breath sounds are heard Abdomen is soft nontender Examination of lower extremities shows 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 Patient is moving all 4 extremities. - Labs CBC & Chem 7: 06/08/22 05:32 06/09/22 08:38 Labs: Abnormal Lab Results - Last 24 Hours (Table) 06/09/22 Range/Units 08:38 Creatinine 6.55 H (0.66-1.25) mg/dL Microbiology - Last 24 Hours (Table) 06/04/22 11:08 Blood Culture - Preliminary Blood No Growth after 96 hours 06/04/22 11:08 Blood Culture - Preliminary Blood No Growth after 96 hours Assessment and Plan Assessment: 1. End-stage renal disease maintained on hemodialysis on Thursday schedule. Patient has AV fistula. 2. Altered mental status. Possibly medication effect versus infection. Improved. LP pending. ID following. 3. Chronic kidney disease mineral bone disease maintained on Renvela. Phosp horus 4.1. 4. Fever. Possible pneumonia. On antibiotics. 5. A. fib with RVR maintained on Cardizem drip. 6. Chronic diastolic CHF. 7. Anemia of chronic kidney disease. Hemoglobin 10.0 8. History of coronary artery disease. Plan: hemodialysis in a.m. Consider discharge to rehab facility given repeated admissions
[2022-06-09 12:12] VITALS: BMI 29.8
[2022-06-09] MEDS: PIPERACILLIN-TAZOBACTAM 3.375 GM in SODIUM CHLORIDE 0.9% 100 ML IVPB SCH ×2 (12:35→23:17)
--- NOTE | 2022-06-09 14:49 | P.PN ---
Subjective Progress Note Date: 06/09/22 HISTORY OF PRESENT ILLNESS This is a 76-year-old male patient with a previous medical history significant for hypertension and hypertensive cardiovascular disease, hyperlipidemia, end- stage renal disease on hemodialysis Thursday and Thursday, history of asthma/COPD, history of CAD post-PCI, history of ankylosing spondylitis, obstructive sleep apnea on a CPAP, CVA. Patient had CVA in June 2021 followed by a long stay at [facility] for subacute rehab. Patient was eventually discharged home and approximately January 2022 to live with his . She states that he did have 2 falls back in February but none in March and April, this month patient has had 5 falls requiring EMS to come and help her get him up. On Thursday and the morning she heard a crash and found him in the bathroom was jammed behind the door. He was able to pull himself up and denied having any pain or injury. Patient went back to bed and when he got for breakfast she heard that he had another fall but this time he had hit his head. EMS picked the patient brought him to [facility]. Patient apparently underwent a CAT scan of the head and neck which were negative. He was prepared for discharge home but he was scheduled for an EGD with Dr. Mendoza on Thursday which is done every 2 years due to Prabhakar's esophagus and it was decided the patient would stay and undergo EGD. The procedure was uneventful but patient had difficulty waking from anesthesia following. He ended up staying another day and was discharged home yesterday. Patient was apparently in his normal state of health and awake and alert when he came home was not having any issues at all. They had dinner together he watch some TV and went to bed around 10 PM. He was started on a new medication, Seroquel 12.5 mg at bedtime which she gave to him before bed. When patient woke up he was having significant cough around 5:45 in the morning. He was able go back to sleep until about 8 AM but she noticed a significant change in his mental status. His last hemodialysis was yesterday and usual schedule is Thursday. Patient was found have a temperature 100.3, heart rate documented at 120 [address] jonatan also at 150 with A. fib with RVR and was given metoprolol 5 mg IV push with improvement down to 110s to 120s for heart rate. Blood pressure initially 143/100, pulse ox 100% on 4 L nasal cannula. WBC 11.4, hemoglobin 10.4, platelet count 201. INR 1.4. Sodium 130, potassium 4.7, chloride 96, CO2 25, BUN 28 creatinine was 5.49. Blood sugar 166. Lactic acid 2.5. Magnesium 1.7. Total bilirubin 1.3, AST 19, ALT 12, alkaline phosphatase 94. Troponin 0.031. ProBNP 30,400. Albumin 3.7. Urinalysis was clear with nitrate and leukoesterase negative. Coronavirus PCR, influenza A, influenza B all were not detected. Lay catheter was placed as a urinalysis was required in the emergency center. Chest x-ray correlate for heart failure consider diffuse interstitial and alveolar pneumonia. Patient was started on cefepime, DuoNeb treatments, consults with pulmonary medicine and nephrology. 06/05: Patient is seen today on the [facility] floor, he continues to have significant mental status changes and not improved from yesterday. CAT scan of the brain without contrast ordered but was nondiagnostic. Patient has been seen by nephrology and undergoing hemodialysis today. Due to confusion and inability to concentrate, one dose of IV Ativan ordered. Patient has been seen by pulmonary medicine and cefepime transitioned to IV Zosyn. monitor and storage bin tender remains atrial fibrillation with controlled rate. Last evening, Cardizem drip was started at 5 mg per hour as heart rate was in the 180s and pulse ox dropped down to 86% and 2 L nasal cannula was applied. Today, patient is unable to take any of his oral medications due to his mental status. His temperature max has been 102.3, heart rate now at 87, blood pressure 142/87, pulse ox 93% on room air. Consult added for cardiology although heart rate is controlled at this time. Patient is continued on Cardizem drip due to inability to take oral medications. 06/06: Patient is found sleeping in his bed this morning. He does wake up opens his eyes and answering questions with one-word answers. He is able to drink water without any signs of coughing or choking. He does have a speech therapy evaluation scheduled for today. Patient is continued on IV Zosyn and IV vancomycin. Blood work from yesterday revealed WBC of 15.4, hemoglobin 10.1 and platelet count 165. Sodium 138, potassium 5.3, chloride 100, CO2 23, BUN 42 and creatinine 7.05. Blood sugar 125. Ammonia level less than 9. Pro-calcitonin 0.47. Total bilirubin 1.5, AST 33, ALT 11, alkaline phosphatase 71. Consult was added yesterday for neurology due to concern for ongoing mental status changes and patient not improving after starting antibiotics. Patient was seen by Dr. Beck for suspected encephalopathy, EEG and repeat CAT scan have been ordered and anesthesia for CSF study. Patient's last dose of Xarelto would have been on 06/03. Neurologys added in infectious disease as well. Patient is scheduled for hemodialysis tomorrow. Dr. Campuzano is recommending continuing vancomycin and Zosyn while waiting for cultures finalized.blood cultures are sh owing no growth after 24 hours 1 specimen. Cardiology consult was added yesterday for A. fib with RVR. Patient remains on Cardizem drip. He has not been started on oral medications as of yet and waiting for speech therapy evaluation but expect that patient will be started on orals today. 06/07: Patient is sitting up in bed more awake he is eating pureed diet and drink water without issues, has been on Zosyn 3.375 grIVPB Q 8 h for possible gram negative pneumonia, likely due to aspiration, we will continue with monitoring and he will likely be going back to [facility] next week, we will keep on IV heparin, no need for LP at this point 06/08: Patient is laying down in bed in no apparent distress, he is feeling a lot better today, I spoke with his and given updated about his current con dition, he'll likely require to go to subacute rehabilitation she elected to go to [facility] at this time, continue current treatment plan, patient is to resume his medication he is currently off heparin drip, his back on Xarelto, patient back on Plavix 75 mg once every day CAD and stroke prevention as well, we'll continue to monitor the patient very closely. 06/09: Patient remains in atrial fibrillation with controlled rate. He is back on his oral medications and continued on IV Zosyn. Next hemodialysis is scheduled for Thursday on his normal schedule of Thursday. Repeat creatinine 6.55. EEG was abnormal suggestive moderate encephalopathy. No epileptiform discharge. Patient is found sitting up in a chair at the bedside, legs are elevated. Patient appears to be comfortable. He recalls that Lay catheter was removed yesterday. His mental status is improving. Patient has been afebrile, earlier today heart rate in the 90s to low 100s. Blood pressure 150/81, pulse ox 95% on room air. Cardiology increased frequency of metoprolol to 50 mg 3 times daily. Anticipate probable discharge to [facility] tomorrow. REVIEW OF SYSTEMS Constitutional: NO fever, no chills, no night sweats. No weight change. Reported weakness, reported fatigue reported lethargy. Reported daytime sleepiness. HEENT: No headache. No blurred vision or double vision, no loss of vision. No loss of Hearing, no ringing in the ears, no dizziness. No nasal drainage or congestion. No epistaxis. No sore throat. Lungs: No shortness of breath, noted cough, minimal sputum production. No wheezing. Cardiovascular: No chest pain, no lower extremity edema. No palpitations. No paroxysmal nocturnal dyspnea. No orthopnea. No lightheadedness or dizziness. No syncopal episodes. Abdominal: No abdominal pain. No nausea, vomiting. No diarrhea. No constipation. No bloody or tarry stools.. No loss of appetite. Genitourinary: No dysuria, increased frequency, urgency. No urinary retention. Patient makes very little urine. Musculoskeletal: No myalgias. No muscle weakness, no gait dysfunction, no frequent falls. No back pain. No neck pain. Integumentary: No wounds, no lesions. No rash or pruritus. No unusual bruising. No change in hair or nails. Neurologic: Reported aphasia. No facial droop. Noted change in mentationimproving . No head injury. No headache. No paralysis. No paresthesia. Psychiatric: No depression. No anxiety. No mood swings. Endocrine: No abnormal blood sugars. No weight change. No excessive sweating or thirst. No cold intolerance. PHYSICAL EXAMINATION Gen: This is a 75-year-old obese male. He is resting in a recliner and appears to be in no acute distress HEENT: Head is atraumatic, normocephalic. Pupils equal, round. Sclerae is anicteric, mucous membranes of the mouth are dry. NECK: Supple. No JVD. No lymphadenopathy. No thyromegaly. LUNGS: Decreased breath sounds at the bases. No crackles, no wheezes. No intercostal retractions, positive for ronchi to the left lower third. HEART: First heart sound is depressed, second heart sound is normal, there is systolic ejection murmur 2/6 located in the left sternal border. Tachycardic and irregular. ABDOMEN: Soft. Bowel sounds are present. No masses. No tenderness. Lay catheter in place with small amount of urine output. EXTREMITIES: No pedal edema. No calf tenderness. Dorsalis pedis +1 bilaterally. NEUROLOGICAL: Patient awake, alert, able to answer questions and follow a few simple commands. ASSESSMENT AND PLAN 1. Metabolic encephalopathy secondary to aspiration pneumonia. Resolved, no need for lumbar puncture at this time resume Plavix 75 mg once every day. 2. Acute hypoxic respiratory failure secondary to A. fib with RVR and aspiration pneumonia. continue Metoprolol 50 mg po tid, we will continue with Zosyn 3.375 gr IVPB q 8 hours, continue Xarelto 15 mg orally daily 3. Aspiration pneumonia and sepsis. Continue with Zosyn, DuoNeb treatments every 4 hours as needed, consult with pulmonary medicine appreciated. 4. Lactic acidosis secondary to pneumonia. Continue treatment as a #2. 5. Atrial fibrillation with RVR, paroxysmal atrial fibrillation, status post IV Lopressor. continue with Metoprolol 50 mg po bid, continue Xarelto 15 mg once every day. 6. Acute on chronic diastolic heart failure. we will continue with Metoprolol 50 mg orally bid, continue hemodialysis. 6. History of CVA. we will resume Atorvastatin 10 mg po daily, resume clopidogrel 75 mg once every day. 7. End-stage renal disease on hemodialysis. Consult with nephrology appre jesse. Patient scheduled for hemodialysis tomorrow. 8. Hypertension, hypertensive cardiovascular disease.we will restart Metoprolol 50 mg po tid. 9. Hyperlipidemia. Continue atorvastatin 10 mg po daily. 10. History of coronary artery disease status post PCI. Continue patient on Imdur 30 mg daily, Lipitor, continue Lopressor 50 mg orally tid and clopidogrel 75 mg once every day. 11. Moderate intermittent asthma, stable. Continue Pulmicort 0.5 mg twice daily, Mucinex 1200 mg oral every 12 hours as needed for cough, DuoNeb treatments. 12. Benign prostatic hypertrophy. Stable. 13. Gastroesophageal reflux disease. Continue PPI. 14. DVT prophylaxis. we will continue with Xarelto 15 mg orally daily. 15. Overall prognosis is guarded. 16. Full code. 17. PT evaluation. 18. grizzly worker consult for discharge planning, family wanted [facility]. Plan for discharge to [facility] tomorrow Impression and plan of care have been directed as dictated by the signing physician. Missy Manzano nurse practitioner acting as scribe for signing physician. Objective - Vital Signs Vital signs: Vital Signs Temp 97.8 F 06/09/22 08:28 Pulse 105 H 06/09/22 08:28 Resp 18 06/09/22 08:28 BP 136/76 06/09/22 08:28 Pulse Ox 99 06/09/22 08:28 FiO2 Intake & Output 06/08/22 06/09/22 06/09/22 18:59 06:59 18:59 Intake Total 315 0 Balance 315 0 Weight 89 kg Intake: Oral 315 0 Other: Voiding Method Diaper Diaper # Voids 0 2 # Bowel Movements 1 - Labs CBC & Chem 7: 06/08/22 05:32 06/09/22 08:38 Labs: Microbiology - Last 24 Hours (Table) 06/04/22 11:08 Blood Culture - Preliminary Blood No Growth after 96 hours 06/04/22 11:08 Blood Culture - Preliminary Blood No Growth after 96 hours
[2022-06-09] MEDS: RIVAROXABAN 15 MG TAB PO SCH (17:14)
[2022-06-09] MEDS: NITROGLYCERIN OINT 1 INCH/GM PACKET TOPICAL SCH ×2 (17:14→23:17)
[2022-06-09] MEDS: ATORVASTATIN 10 MG TAB PO SCH (17:22)
[2022-06-09] MEDS: SODIUM CHLORIDE 0.9% 1,000 ML IV SCH ×2 (19:18→20:11)
[2022-06-09] MEDS: MONTELUKAST 10 MG TAB PO SCH (20:11)
[2022-06-09] MEDS: LORATADINE 10 MG TAB PO SCH (20:11)
[2022-06-09] MEDS: MULTIVITAMINS, THERA 1 EACH TAB PO SCH (20:11)
[2022-06-10] MEDS: IPRATROPIUM-ALBUTEROL 3 ML NEB INHALATION PRN (08:04)
[2022-06-10] MEDS: BUDESONIDE 0.5 MG/2 ML NEBU INHALATION SCH (08:04)
[2022-06-10 08:35] LABS: HCT 31.6 % (39.0-53.0); HGB 9.9 gm/dL (13.0-17.5); Hypochromasia Marked; MCH 30.7 pg (25.0-35.0); MCHC 31.3 g/dL (31.0-37.0); MCV 97.9 fL (80.0-100.0); Macrocytosis Slight; Mean Platelet Volume 9.2; Platelet Count 178 k/uL (150-450); RBC 3.23 m/uL (4.30-5.90); RDW 15.8 % (11.5-15.5); WBC 12.5 k/uL (3.8-10.6)
[2022-06-10 08:46] LABS: Albumin 3.4 g/dL (3.5-5.0); Calcium 9.6 mg/dL (8.4-10.2); Total Bilirubin 1.2 mg/dL (0.2-1.3)
--- NOTE | 2022-06-10 09:00 | P.PN ---
Subjective Progress Note Date: 06/07/22 Principal diagnosis: Fever and possible pneumonia Patient is a 76-year-old male with a past medical history significant for end-stage renal disease on hemodialysis presented to the hospital mental status changes, patient did have fever and elevated white count and concern for pneumonia and questionable aspiration etiology on today's evaluation that is 06/07/2022, the patient remains to be afebrile , the patient is slightly more awake and alert however did not answer any question and vomiting diarrhea or any other changes reported by the nursing staff Objective - Vital Signs Vital signs: Vital Signs Temp 98.7 F 06/06/22 20:00 Pulse 72 06/07/22 08:23 Resp 16 06/07/22 04:00 BP 118/67 06/07/22 04:00 Pulse Ox 96 06/07/22 04:00 FiO2 Intake & Output 06/06/22 06/07/22 06/07/22 18:59 06:59 18:59 Intake Total 729.539 631.117 Output Total 50 500 Balance 679.539 131.117 Weight 91.5 kg Intake: Intake, IV Titration 189.539 146.117 Amount Diltiazem 125 mg In 125 31.917 Sodium Chloride 0.9% 100 ml @ 5 MG/HR 5 mls/hr IV .Q24H SHANTAL Rx#:[id number] Heparin Sod,Pork in 0.45% 64.539 114.2 NaCl 25,000 unit In 0.45 % NaCl 1 250ml.bag @ 11. 37 UNITS/KG/HR 10.006 mls /hr IV .Q24H SHANTAL Rx#: [id number] Oral 540 485 Output: Urine 50 500 Uretheral (Lay) 50 Other: Voiding Method Diaper Diaper # Voids 0 0 - Exam GENERAL DESCRIPTION: An elderly male lying in bed in no distress RESPIRATORY SYSTEM: Unlabored breathing , decreased breath sounds at bases HEART: S1 S2 regular rate and rhythm , ABDOMEN: Soft , no tenderness EXTREMITIES: No edema feet - Labs CBC & Chem 7: 06/10/22 08:12 06/10/22 08:12 Labs: Abnormal Lab Results - Last 24 Hours (Table) 06/06/22 06/06/22 06/07/22 Range/Units 09:17 17:07 00:05 RBC (4.30-5.90) m/uL Hgb (13.0-17.5) gm/dL Hct (39.0-53.0) % RDW (11.5-15.5) % Plt Count (150-450) k/uL PT (9.0-12.0) sec INR (<1.2) APTT 42.4 H 54.7 H (22.0-30.0) sec Carbon Dioxide (22-30) mmol/L BUN (9-20) mg/dL Creatinine 7.21 H* (0.66-1.25) mg/dL Albumin (3.5-5.0) g/dL 06/07/22 06/07/22 06/07/22 Range/Units 06:26 06:26 06:26 RBC 3.02 L (4.30-5.90) m/uL Hgb 9.0 L (13.0-17.5) gm/dL Hct 28.7 L (39.0-53.0) % RDW 16.0 H (11.5-15.5) % Plt Count 141 L (150-450) k/uL PT 14.6 H (9.0-12.0) sec INR 1.4 H (<1.2) APTT 61.0 H (22.0-30.0) sec Carbon Dioxide 21 L (22-30) mmol/L BUN 48 H (9-20) mg/dL Creatinine 8.03 H* (0.66-1.25) mg/dL Albumin 3.0 L (3.5-5.0) g/dL Microbiology - Last 24 Hours (Table) 06/04/22 11:08 Blood Culture - Preliminary Blood No Growth after 48 hours 06/04/22 11:08 Blood Culture - Preliminary Blood No Growth after 48 hours Assessment and Plan (1) Aspiration pneumonia Current Visit: Yes Status: Acute Code(s): J69.0 - PNEUMONITIS DUE TO INHALAT ION OF FOOD AND VOMIT SNOMED Code(s): 749961529 (2) Febrile illness, acute Current Visit: Yes Status: Acute Code(s): R50.9 - FEVER, UNSPECIFIED SNOMED Code(s): 048991414 Plan: 1patient presented to hospital with sepsis and respiratory have fever elevated white count with evidence of increasing infiltrate on the left side chest x-ray with concern for possible aspiration pneumonia likely from enteric gram-negative pathogen and less likely gram-positive however the patient did have significant mental status changes and underlying encephalitis less likely 2- patient seemed to show some clinical improvement and went continue with the Zosyn and a monitor clinical course closely Time with Patient: Less than 30
--- NOTE | 2022-06-10 09:01 | P.PN ---
Subjective Progress Note Date: 06/08/22 Principal diagnosis: Fever and possible pneumonia Patient is a 76-year-old male with a past medical history significant for end-stage renal disease on hemodialysis presented to the hospital mental status changes, patient did have fever and elevated white count and concern for pneumonia and questionable aspiration etiology on today's evaluation that is 06/08/2022, the patient continues to be afebrile , the patient is slightly more awake and alert and denies having any chest pain or shortness when he did have occasional cough no abdominal pain and no diarrhea reported Objective - Vital Signs Vital signs: Vital Signs Temp 98.1 F 06/08/22 08:00 Pulse 76 06/08/22 12:00 Resp 18 06/08/22 12:00 BP 136/67 06/08/22 12:00 Pulse Ox 97 06/08/22 12:00 FiO2 Intake & Output 06/07/22 06/08/22 06/08/22 18:59 06:59 18:59 Intake Total 900 250 75 Output Total 2000 Balance -1100 250 75 Weight 83 kg Intake: Intake, IV Titration 360 Amount Piperacillin-Tazobactam 3 200 .375 gm In Sodium Chloride 0.9% 100 ml @ 25 mls/hr IVPB Q12H SHANTAL Rx# :[id number] Sodium Chloride 0.9% 1, 160 000 ml @ 20 mls/hr IV . Q24H SHANTAL Rx#:[id number] Oral 240 250 75 Hemodialysis 300 Output: Hemodialysis 1999 Other: Voiding Method Diaper Diaper Diaper # Voids 0 2 # Bowel Movements 0 1 - Exam GENERAL DESCRIPTION: An elderly male lying in bed in no distress RESPIRATORY SYSTEM: Unlabored breathing , decreased breath sounds at bases HEART: S1 S2 regular rate and rhythm , ABDOMEN: Soft , no tenderness EXTREMITIES: No edema feet - Labs CBC & Chem 7: 06/10/22 08:12 06/10/22 08:12 Labs: Abnormal Lab Results - Last 24 Hours (Table) 06/08/22 06/08/22 06/08/22 Range/Units 05:32 05:32 05:32 RBC 3.24 L (4.30-5.90) m/uL Hgb 10.0 L (13.0-17.5) gm/dL Hct 31.0 L (39.0-53.0) % RDW 15.7 H (11.5-15.5) % APTT 33.6 H (22.0-30.0) sec Creatinine 4.40 H (0.66-1.25) mg/dL Glucose 104 H (74-99) mg/dL Albumin 3.3 L (3.5-5.0) g/dL Microbiology - Last 24 Hours (Table) 06/04/22 11:08 Blood Culture - Preliminary Blood No Growth after 96 hours 06/04/22 11:08 Blood Culture - Preliminary Blood No Growth after 96 hours Assessment and Plan (1) Aspiration pneumonia Current Visit: Yes Status: Acute Code(s): J69.0 - PNEUMONITIS DUE TO INHALATION OF FOOD AND VOMIT SNOMED Code(s): 576628812 (2) Febrile illness, acute Current Visit: Yes Status: Acute Code(s): R50.9 - FEVER, UNSPECIFIED SNOMED Code(s): 298665054 Plan: 1patient presented to hospital with sepsis and respiratory have fever elevated white count with evidence of increasing infiltrate on the left side chest x-ray with concern for possible aspiration pneumonia likely from enteric gram-negative pathogen and less likely gram-positive however the patient did have significant mental status changes and underlying encephalitis less likely 2- patient has shown clinical improvement and the patient will continue with the Zosyn and a monitor clinical course closely Time with Patient: Less than 30
--- NOTE | 2022-06-10 09:02 | P.PN ---
Subjective Progress Note Date: 06/09/22 Principal diagnosis: Fever and possible pneumonia Patient is a 76-year-old male with a past medical history significant for end-stage renal disease on hemodialysis presented to the hospital mental status changes, patient did have fever and elevated white count and concern for pneumonia and questionable aspiration etiology on today's evaluation that is 06/09/2022, the patient denies any fever or any chills, the patient is breathing comfortably on room air, the patient denies any chest pain or shortness with occasional cough no abdominal pain or diarrhea Objective - Vital Signs Vital signs: Vital Signs Temp 98.0 F 06/09/22 12:46 Pulse 74 06/09/22 12:46 Resp 18 06/09/22 12:46 BP 122/67 06/09/22 12:46 Pulse Ox 96 06/09/22 12:46 FiO2 Intake & Output 06/08/22 06/09/22 06/09/22 18:59 06:59 18:59 Intake Total 315 0 Balance 315 0 Weight 89 kg 89 kg Intake: Oral 315 0 Other: Voiding Method Diaper Diaper Diaper # Voids 0 2 1 # Bowel Movements 1 1 - Exam GENERAL DESCRIPTION: An elderly male lying in bed in no distress RESPIRATORY SYSTEM: Unlabored breathing , decreased breath sounds at bases HEART: S1 S2 regular rate and rhythm , ABDOMEN: Soft , no tenderness EXTREMITIES: No edema feet - Labs CBC & Chem 7: 06/10/22 08:12 06/10/22 08:12 Labs: Abnormal Lab Results - Last 24 Hours (Table) 06/09/22 Range/Units 08:38 Creatinine 6.55 H (0.66-1.25) mg/dL Microbiology - Last 24 Hours (Table) 06/04/22 11:08 Blood Culture - Preliminary Blood No Growth after 96 hours 06/04/22 11:08 Blood Culture - Preliminary Blood No Growth after 96 hours Assessment and Plan (1) Aspiration pneumonia Current Visit: Yes Status: Acute Code(s): J69.0 - PNEUMONITIS DUE TO INHALATION OF FOOD AND VOMIT SNOMED Code(s): 713029706 (2) Febrile illness, acute Current Visit: Yes Status: Acute Code(s): R50.9 - FEVER, UNSPECIFIED SNOMED Code(s): 385236846 Plan: 1patient presented to hospital with sepsis and respiratory have fever elevated white count with evidence of increasing infiltrate on the left side chest x-ray with concern for possible aspiration pneumonia likely from enteric gram-negative pathogen and less likely gram-positive however the patient did have significant mental status changes and underlying encephalitis less likely 2- patient has shown clinical improvement with resolution of fever culture had been negative so far patient is on Zosyn will finish therapy short course of oral Avelox on discharge
--- NOTE | 2022-06-10 09:04 | PN ---
PROGRESS NOTE SUBJECTIVE: This is a gentleman with chronic atrial fibrillation, came in to the hospital with pneumonia that has improved. He is going to be discharged today. Vitals are stable, rate control is fairly decent. I will increase the metoprolol tartrate to 50 mg t.i.d., and based on clinical course, I will make further recommendations. The patient can be discharged later on today. OBJECTIVE: VITALS: Stable. NECK: No JVD. HEART: S1, S2 heard normally, irregular rhythm noted, but rate control is fair. LUNGS: Revealed decent air entry. ABDOMEN: Exam is unchanged. LOWER EXTREMITIES: Exam is unchanged. MMODL / IJN: [id number] /
[2022-06-10] MEDS: SEVELAMER 800 MG TAB PO SCH ×2 (09:15→17:20)
--- NOTE | 2022-06-10 09:30 | P.DS ---
Providers Date of admission: 06/04/22 13:56 Expected date of discharge: 06/10/22 Attending physician: Jyotsna Kovacs Consults: 06/04/22 13:46 Consult Physician Routine Consulting Provider: Margareth Whyte Consult Reason/Comments: Aspiration pneumonitis Do you want consulting provider notified?: Yes 06/04/22 13:47 Consult Physician Routine Consulting Provider: Frank Hameed Consult Reason/Comments: Chronic renal failure, dialysis Do you want consulting provider notified?: Yes 06/04/22 13:48 Consult Physician Routine Consulting Provider: Frank Hameed Consult Reason/Comments: ESRD on HD Do you want consulting provider notified?: Yes Consult Physician Routine Consulting Provider: Margareth Whyte Consult Reason/Comments: aspiration pneumonia Do you want consulting provider notified?: Yes 06/05/22 13:29 Consult Physician Routine Consulting Provider: Nj Jose Consult Reason/Comments: afib rvr Do you want consulting provider notified?: Yes 06/05/22 14:48 Consult Physician Routine Consulting Provider: Alexander Beck Consult Reason/Comments: mental status changes, falls Do you want consulting provider notified?: Yes 06/05/22 15:53 Consult Physician Routine Consulting Provider: Nava Campuzano Consult Reason/Comments: fever, AMS Do you want consulting provider notified?: Yes Primary care physician: Jyotsna Kovacs Hospital Course: HISTORY OF PRESENT ILLNESS This is a 76-year-old male patient with a previous medical history significant for hypertension and hypertensive cardiovascular disease, hyperlipidemia, end- stage renal disease on hemodialysis Thursday and Thursday, history of asthma/COPD, history of CAD post-PCI, history of ankylosing spondylitis, obstructive sleep apnea on a CPAP, CVA. Patient had CVA in June 2021 followed by a long stay at [facility] for subacute rehab. Patient was eventually discharged home and approximately January 2022 to live with his . She states that he did have 2 falls back in February but none in March and April, this month patient has had 5 falls requiring EMS to come and help her get him up. On Thursday and the morning she heard a crash and found him in the bathroom was j ammed behind the door. He was able to pull himself up and denied having any pain or injury. Patient went back to bed and when he got for breakfast she heard that he had another fall but this time he had hit his head. EMS picked the patient brought him to [facility]. Patient apparently underwent a CAT scan of the head and neck which were negative. He was prepared for discharge home but he was scheduled for an EGD with Dr. Mendoza on Thursday which is done every 2 years due to Prabhakar's esophagus and it was decided the patient would stay and undergo EGD. The procedure was uneventful but patient had difficulty waking from anesthesia following. He ended up staying another day and was discharged home yesterday. Patient was apparently in his normal state of health and awake and alert when he came home was not having any issues at all. They had dinner together he watch some TV and went to bed around 10 PM. He was started on a new medication, Seroquel 12.5 mg at bedtime which she gave to him before bed. When patient woke up he was having significant cough around 5:45 in the morning. He was able go back to sleep until about 8 AM but she noticed a significant change in his mental status. His last hemodialysis was yesterday and usual schedule is Thursday. Patient was found have a temperature 100.3, heart rate documented at 120 although also at 150 with A. fib with RVR and was given metoprolol 5 mg IV push with improvement down to 110s to 120s for heart rate. Blood pressure initially 143/100, pulse ox 100% on 4 L nasal cannula. WBC 11.4, hemoglobin 10.4, platelet count 201. INR 1.4. Sodium 130, potassium 4.7, chloride 96, CO2 25, BUN 28 creatinine was 5.49. Blood sugar 166. Lactic acid 2.5. Magnesium 1.7. Total bilirubin 1.3, AST 19, ALT 12, alkaline phosphatase 94. Troponin 0.031. ProBNP 30,400. Albumin 3.7. Urinalysis was clear with nitrate and leukoesterase negative. Coronavirus PCR, influenza A, influenza B all were not detected. Lay catheter was placed as a urinalysis was required in the emergency center. Chest x-ray correlate for heart failure consider diffuse interstitial and alveolar pneumonia. Patient was started on cefepime, DuoNeb treatments, consults with pulmonary medicine and nephrology. 06/05: Patient is seen today on the [facility] floor, he continues to have significant mental status changes and not improved from yesterday. CAT scan of the brain without contrast ordered but was nondiagnostic. Patient has been seen by nephrology and undergoing hemodialysis today. Due to confusion and inability to concentrate, one dose of IV Ativan ordered. Patient has been seen by pulmonary medicine and cefepime transitioned to IV Zosyn. 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 Last evening, Cardizem drip was started at 5 mg per hour as heart rate was in the 180s and pulse ox dropped down to 86% and 2 L nasal cannula was applied. Today, patient is unable to take any of his oral medications due to his mental status. His temperature max has been 102.3, heart rate now at 87, blood pressure 142/87, pulse ox 93% on room air. Consult added for cardiology although heart rate is controlled at this time. Patient is continued on Cardizem drip due to inability to take oral medications. 06/06: Patient is found sleeping in his bed this morning. He does wake up opens his eyes and answering questions with one-word answers. He is able to drink water without any signs of coughing or choking. He does have a speech therapy evaluation scheduled for today. Patient is continued on IV Zosyn and IV vancomycin. Blood work from yesterday revealed WBC of 15.4, hemoglobin 10.1 and platelet count 165. Sodium 138, potassium 5.3, chloride 100, CO2 23, BUN 42 and creatinine 7.05. Blood sugar 125. Ammonia level less than 9. Pro-calcitonin 0.47. Total bilirubin 1.5, AST 33, ALT 11, alkaline phosphatase 71. Consult was added yesterday for neurology due to concern for ongoing mental status changes and patient not improving after starting antibiotics. Patient was seen by Dr. Beck for suspected encephalopathy, EEG and repeat CAT scan have been ordered and anesthesia for CSF study. Patient's last dose of Xarelto would have been on 06/03. Neurologys added in infectious disease as well. Patient is scheduled for hemodialysis tomorrow. Dr. Campuzano is recommending continuing vancomycin and Zosyn while waiting for cultures finalized.blood cultures are showing no growth after 24 hours 1 specimen. Cardiology consult was added yesterday for A. fib with RVR. Patient remains on Cardizem drip. He has not been started on oral medications as of yet and waiting for speech therapy evaluation but expect that patient will be started on orals today. 06/07: Patient is sitting up in bed more awake he is eating pureed diet and drink water without issues, has been on Zosyn 3.375 grIVPB Q 8 h for possible gram negative pneumonia, likely due to aspiration, we will continue with monitoring and he will likely be going back to [facility] next week, we will keep on IV heparin, no need for LP at this point 06/08: Patient is laying down in bed in no apparent distress, he is feeling a lot better today, I spoke with his and given updated about his current condition, he'll likely require to go to subacute rehabilitation she elected to go to [facility] at this time, continue current treatment plan, patient is to resume his medication he is currently off heparin drip, his back on Xarelto, patient back on Plavix 75 mg once every day CAD and stroke prevention as well, we'll continue to monitor the patient very closely. 06/09: Patient remains in atrial fibrillation with controlled rate. He is back on his oral medications and continued on IV Zosyn. Next hemodialysis is sc heduled for Thursday on his normal schedule of Thursday. Repeat creatinine 6.55. EEG was abnormal suggestive moderate encephalopathy. No epileptiform discharge. Patient is found sitting up in a chair at the bedside, legs are elevated. Patient appears to be comfortable. He recalls that Lay catheter was removed yesterday. His mental status is improving. Patient has been afebrile, earlier today heart rate in the 90s to low 100s. Blood pressure 150/81, pulse ox 95% on room air. Cardiology increased frequency of metoprolol to 50 mg 3 times daily. Anticipate probable discharge to [facility] tomorrow. 06/10: Patient remains afebrile, heart rate 80s and 90s, blood pressure 158/81, pulse ox 96% on room air. Repeat blood work reveals WBC 12.5, hemoglobin 9.9, platelet count 178. Sodium 140, potassium 4.0, chloride 101, CO2 22, BUN 37 creatinine 7.7. Blood sugar 121. Calcium 9.6. Total bilirubin 1.2, AST 17, ALT 13, alkaline phosphatase 66. Patient is found today sitting up in a recliner, he appears comfortable, he is awake and alert. He is scheduled for hemodialysis today. We will transition IV antibiotics to oral and discharged to [facility] today once dialysis is completed. DISCHARGE DIAGNOSES 1. Metabolic encephalopathy secondary to aspiration pneumonia. 2. Acute hypoxic respiratory failure secondary to A. fib with RVR and a spiration pneumonia. 3. Aspiration pneumonia and sepsis. 4. Lactic acidosis secondary to pneumonia. 5. Atrial fibrillation with RVR, paroxysmal atrial fibrillation. 6. Acute on chronic diastolic heart failure. 6. History of CVA. 7. End-stage renal disease on hemodialysis. 8. Hypertension, hypertensive cardiovascular disease. 9. Hyperlipidemia. 10. History of coronary artery disease status post PCI. 11. Moderate intermittent asthma, stable. 12. Benign prostatic hypertrophy. 13. Gastroesophageal reflux disease. DISCHARGE PLAN Subacute rehab at [facility]. Greater than 35 minutes was utilized and coordinating patient's discharge. Impression and plan of care have been directed as dictated by the signing physician. Missy Manzano nurse practitioner acting as scribe for signing physician. Patient Condition at Discharge: Fair Plan - Discharge Summary New Discharge Prescriptions: New Ipratropium-Albuterol Nebulize [Duoneb 0.5 mg-3 mg/3 ml Soln] 3 ml INHALATION RT-Q4H PRN each PRN Reason: shortness of breath Metoprolol Tartrate [Lopressor] 50 mg PO TID tab Moxifloxacin HCl [Avelox] 400 mg PO DAILY #7 tab Continue Montelukast [Singulair] 10 mg PO HS Dutasteride [Avodart] 0.5 mg PO DAILY Beclomethasone Dipropionate [Qvar 80 mcg/puff] 2 puff INHALATION RT-BID Ergocalciferol [Vitamin D2 (DRISDOL)] 50,000 unit PO WE Isosorbide Mononitrate ER [Imdur] 30 mg PO DAILY Lansoprazole 30 mg PO BID Febuxostat [Uloric] 80 mg PO DAILY Sevelamer [Renvela] 800 mg PO BID-W/MEALS Albuterol Inhaler [Ventolin Hfa Inhaler] 2 puff INHALATION RT-QID PRN PRN Reason: Shortness Of Breath Omalizumab [Xolair] 150 mg SQ Q28D Loratadine 10 mg PO HS Docusate Sodium [Dok] 100 mg PO BID Nitroglycerin Sl Tabs [Nitrostat] 0.4 mg SUBLINGUAL Q5M PRN PRN Reason: Chest Pain Clopidogrel [Plavix] 75 mg PO DAILY tab Sevelamer [Renvela] 800 mg PO SUMOWEFR@1200 EPINEPHrine (Auto Inject) [Epipen] 0.3 mg PO ONCE PRN PRN Reason: Anaphylaxis Midodrine HCl [ProAmatine] 10 mg PO TID Lidocaine-Prilocaine Cream [Emla Cream 2.5%/2.5%] 1 applic TOPICAL DIRECTED Renavite 1 tab PO HS Rivaroxaban [Xarelto] 15 mg PO W/SUPPER tab Atorvastatin Calcium [Lipitor] 10 mg PO MOWEFR@2100 guaiFENesin [Mucinex] 1,200 mg PO Q12H PRN PRN Reason: Congestion Discontinued Torsemide [Demadex] 20 mg PO DAILY QUEtiapine [SEROquel] 12.5 mg PO HS Budesonide [Pulmicort] 0.5 mg INHALATION RT-BID Metoprolol Tartrate [Lopressor] 50 mg PO BID Discharge Medication List Dutasteride [Avodart] 0.5 mg PO DAILY 11/11/14 [History] Montelukast [Singulair] 10 mg PO HS 11/11/14 [History] Beclomethasone Dipropionate [Qvar 80 mcg/puff] 2 puff INHALATION RT-BID 11/21/15 [History] Ergocalciferol [Vitamin D2 (DRISDOL)] 50,000 unit PO WE 11/21/15 [History] Isosorbide Mononitrate ER [Imdur] 30 mg PO DAILY 11/21/15 [History] Febuxostat [Uloric] 80 mg PO DAILY 10/22/16 [History] Lansoprazole 30 mg PO BID 10/22/16 [History] Sevelamer [Renvela] 800 mg PO BID-W/MEALS 11/03/19 [History] Albuterol Inhaler [Ventolin Hfa Inhaler] 2 puff INHALATION RT-QID PRN 02/11/20 [History] Omalizumab [Xolair] 150 mg SQ Q28D 02/13/20 [History] Docusate Sodium [Dok] 100 mg PO BID 03/17/20 [History] Loratadine 10 mg PO HS 03/17/20 [History] Lidocaine-Prilocaine Cream [Emla Cream 2.5%/2.5%] 1 applic TOPICAL DIRECTED 06/13/21 [History] Nitroglycerin Sl Tabs [Nitrostat] 0.4 mg SUBLINGUAL Q5M PRN 06/13/21 [History] Renavite 1 tab PO HS 06/13/21 [History] Clopidogrel [Plavix] 75 mg PO DAILY tab 06/17/21 [Rx] Rivaroxaban [Xarelto] 15 mg PO W/SUPPER tab 06/17/21 [Rx] Atorvastatin Calcium [Lipitor] 10 mg PO MOWEFR@2100 06/04/22 [History] EPINEPHrine (Auto Inject) [Epipen] 0.3 mg PO ONCE PRN 06/04/22 [History] Midodrine HCl [ProAmatine] 10 mg PO TID 06/04/22 [History] Sevelamer [Renvela] 800 mg PO SUMOWEFR@1200 06/04/22 [History] guaiFENesin [Mucinex] 1,200 mg PO Q12H PRN 06/04/22 [History] Ipratropium-Albuterol Nebulize [Duoneb 0.5 mg-3 mg/3 ml Soln] 3 ml INHALATION RT-Q4H PRN each 06/10/22 [Rx] Metoprolol Tartrate [Lopressor] 50 mg PO TID tab 06/10/22 [Rx] Moxifloxacin HCl [Avelox] 400 mg PO DAILY #7 tab 06/10/22 [Rx] Follow up Appointment(s)/Referral(s): Tabby Kurtz MD [STAFF PHYSICIAN] - 2 Weeks Jyotsna Kovacs MD [Primary Care Provider] - 1 Week (at [facility]) Discharge Disposition: TRANSFER TO SNF/F
--- NOTE | 2022-06-10 13:04 | P.PN ---
Subjective Patient is seen for follow-up for end-stage renal disease,maintained on Thursday schedule. patient tolerated his treatment well over the weekend No significant complaints today Awake comfortable not in any acute distress Patient is seen on hemodialysis today. He is tolerating his treatment well. 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 Patient is moving all 4 extremities. - Labs CBC & Chem 7: 06/10/22 08:12 06/10/22 08:12 Labs: Abnormal Lab Results - Last 24 Hours (Table) 06/10/22 06/10/22 06/10/22 Range/Units 08:12 08:12 12:26 WBC 12.5 H (3.8-10.6) k/uL RBC 3.23 L (4.30-5.90) m/uL Hgb 9.9 L (13.0-17.5) gm/dL Hct 31.6 L (39.0-53.0) % RDW 15.8 H (11.5-15.5) % BUN 37 H (9-20) mg/dL Creatinine 7.70 H* (0.66-1.25) mg/dL Glucose 121 H (74-99) mg/dL Albumin 3.4 L (3.5-5.0) g/dL Coronavirus (PCR) Detected A (Not Detectd) Microbiology - Last 24 Hours (Table) 06/04/22 11:08 Blood Culture - Preliminary Blood No Growth after 120 hours 06/04/22 11:08 Blood Culture - Preliminary Blood No Growth after 120 hours Assessment and Plan Assessment: 1. End-stage renal disease maintained on hemodialysis on Thursday schedule. Patient has AV fistula. 2. Altered mental status. Possibly medication effect versus infection. Improved. LP pending. ID following. 3. Chronic kidney disease mineral bone disease maintained on Renvela. Phosphorus 4.1. 4. Fever. Possible pneumonia. On antibiotics. 5. A. fib with RVR maintained on Cardizem drip. 6. Chronic diastolic CHF. 7. Anemia of chronic kidney disease. Hemoglobin 10.0 8. History of coronary artery disease. Plan: Hemodialysis today. Goal UF about 2 L. Consider discharge to rehab facility given repeated admissions
[2022-06-10] MEDS: PIPERACILLIN-TAZOBACTAM 3.375 GM in SODIUM CHLORIDE 0.9% 100 ML IVPB SCH ×2 (14:21→23:21)
[2022-06-10] MEDS: PANTOPRAZOLE 40 MG TABLET PO SCH ×2 (14:21→21:00)
[2022-06-10] MEDS: CLOPIDOGREL 75 MG TAB PO SCH (14:22)
[2022-06-10] MEDS: METOPROLOL TARTRATE 50 MG TAB PO SCH ×3 (14:22→20:52)
[2022-06-10] MEDS: FINASTERIDE 5 MG TAB PO SCH (14:22)
[2022-06-10] MEDS: DOCUSATE 100 MG CAP PO SCH ×2 (14:22→21:00)
[2022-06-10] MEDS: NITROGLYCERIN OINT 1 INCH/GM PACKET TOPICAL SCH ×3 (14:23→23:32)
[2022-06-10] MEDS: allopurinoL 100 MG TAB PO SCH (14:23)
[2022-06-10] MEDS: RIVAROXABAN 15 MG TAB PO SCH (17:19)
[2022-06-10] MEDS: ALBUTEROL HFA INHALER INHALATION PRN (20:08)
[2022-06-10] MEDS: FLUTICASONE 110 MCG INHALER INHALATION SCH (20:08)
[2022-06-10] MEDS: MONTELUKAST 10 MG TAB PO SCH (20:52)
[2022-06-10] MEDS: LORATADINE 10 MG TAB PO SCH (20:52)
[2022-06-10] MEDS: ACETAMINOPHEN TAB 325 MG TAB PO PRN (20:56)
[2022-06-10] MEDS: MULTIVITAMINS, THERA 1 EACH TAB PO SCH (21:00)
[2022-06-11] MEDS: SEVELAMER 800 MG TAB PO SCH ×3 (06:02→17:22)
[2022-06-11] MEDS: FLUTICASONE 110 MCG INHALER INHALATION SCH ×2 (07:48→20:04)
[2022-06-11] MEDS: ALBUTEROL HFA INHALER INHALATION PRN ×3 (07:48→20:04)
--- NOTE | 2022-06-11 08:27 | P.PN ---
Subjective Progress Note Date: 06/10/22 HISTORY OF PRESENT ILLNESS This is a 76-year-old male patient with a previous medical history significant for hypertension and hypertensive cardiovascular disease, hyperlipidemia, end- stage renal disease on hemodialysis Thursday and Thursday, history of asthma/COPD, history of CAD post-PCI, history of ankylosing spondylitis, obstructive sleep apnea on a CPAP, CVA. Patient had CVA in June 2021 followed by a long stay at [facility] for subacute rehab. Patient was eventually discharged home and approximately January 2022 to live with his . She states that he did have 2 falls back in February but none in March and April, this month patient has had 5 falls requiring EMS to come and help her get him up. On Thursday and the morning she heard a crash and found him in the bathroom was jammed behind the door. He was able to pull himself up and denied having any pain or injury. Patient went back to bed and when he got for breakfast she heard that he had another fall but this time he had hit his head. EMS picked the patient brought him to [facility]. Patient apparently underwent a CAT scan of the head and neck which were negative. He was prepared for discharge home but he was scheduled for an EGD with Dr. Mendoza on Thursday which is done every 2 years due to Prabhakar's esophagus and it was decided the patient would stay and undergo EGD. The procedure was uneventful but patient had difficulty waking from anesthesia following. He ended up staying another day and was discharged home yesterday. Patient was apparently in his normal state of health and awake and alert when he came home was not having any issues at all. They had dinner together he watch some TV and went to bed around 10 PM. He was started on a new medication, Seroquel 12.5 mg at bedtime which she gave to him before bed. When patient woke up he was having significant cough around 5:45 in the morning. He was able go back to sleep until about 8 AM but she noticed a significant change in his mental status. His last hemodialysis was yesterday and usual schedule is Thursday. Patient was found have a temperature 100.3, heart rate documented at 120 [address] jonatan also at 150 with A. fib with RVR and was given metoprolol 5 mg IV push with improvement down to 110s to 120s for heart rate. Blood pressure initially 143/100, pulse ox 100% on 4 L nasal cannula. WBC 11.4, hemoglobin 10.4, platelet count 201. INR 1.4. Sodium 130, potassium 4.7, chloride 96, CO2 25, BUN 28 creatinine was 5.49. Blood sugar 166. Lactic acid 2.5. Magnesium 1.7. Total bilirubin 1.3, AST 19, ALT 12, alkaline phosphatase 94. Troponin 0.031. ProBNP 30,400. Albumin 3.7. Urinalysis was clear with nitrate and leukoesterase negative. Coronavirus PCR, influenza A, influenza B all were not detected. Lay catheter was placed as a urinalysis was required in the emergency center. Chest x-ray correlate for heart failure consider diffuse interstitial and alveolar pneumonia. Patient was started on cefepime, DuoNeb treatments, consults with pulmonary medicine and nephrology. 06/05: Patient is seen today on the [facility] floor, he continues to have significant mental status changes and not improved from yesterday. CAT scan of the brain without contrast ordered but was nondiagnostic. Patient has been seen by nephrology and undergoing hemodialysis today. Due to confusion and inability to concentrate, one dose of IV Ativan ordered. Patient has been seen by pulmonary medicine and cefepime transitioned to IV Zosyn. 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 Last evening, Cardizem drip was started at 5 mg per hour as heart rate was in the 180s and pulse ox dropped down to 86% and 2 L nasal cannula was applied. Today, patient is unable to take any of his oral medications due to his mental status. His temperature max has been 102.3, heart rate now at 87, blood pressure 142/87, pulse ox 93% on room air. Consult added for cardiology although heart rate is controlled at this time. Patient is continued on Cardizem drip due to inability to take oral medications. 06/06: Patient is found sleeping in his bed this morning. He does wake up opens his eyes and answering questions with one-word answers. He is able to drink water without any signs of coughing or choking. He does have a speech therapy evaluation scheduled for today. Patient is continued on IV Zosyn and IV vancomycin. Blood work from yesterday revealed WBC of 15.4, hemoglobin 10.1 and platelet count 165. Sodium 138, potassium 5.3, chloride 100, CO2 23, BUN 42 and creatinine 7.05. Blood sugar 125. Ammonia level less than 9. Pro-calcitonin 0.47. Total bilirubin 1.5, AST 33, ALT 11, alkaline phosphatase 71. Consult was added yesterday for neurology due to concern for ongoing mental status changes and patient not improving after starting antibiotics. Patient was seen by Dr. Beck for suspected encephalopathy, EEG and repeat CAT scan have been ordered and anesthesia for CSF study. Patient's last dose of Xarelto would have been on 06/03. Neurologys added in infectious disease as well. Patient is scheduled for hemodialysis tomorrow. Dr. Campuzano is recommending continuing vancomycin and Zosyn while waiting for cultures finalized.blood cultures are sh owing no growth after 24 hours 1 specimen. Cardiology consult was added yesterday for A. fib with RVR. Patient remains on Cardizem drip. He has not been started on oral medications as of yet and waiting for speech therapy evaluation but expect that patient will be started on orals today. 06/07: Patient is sitting up in bed more awake he is eating pureed diet and drink water without issues, has been on Zosyn 3.375 grIVPB Q 8 h for possible gram negative pneumonia, likely due to aspiration, we will continue with monitoring and he will likely be going back to [facility] next week, we will keep on IV heparin, no need for LP at this point 06/08: Patient is laying down in bed in no apparent distress, he is feeling a lot better today, I spoke with his and given updated about his current con dition, he'll likely require to go to subacute rehabilitation she elected to go to [facility] at this time, continue current treatment plan, patient is to resume his medication he is currently off heparin drip, his back on Xarelto, patient back on Plavix 75 mg once every day CAD and stroke prevention as well, we'll continue to monitor the patient very closely. 06/09: Patient remains in atrial fibrillation with controlled rate. He is back on his oral medications and continued on IV Zosyn. Next hemodialysis is scheduled for Thursday on his normal schedule of Thursday. Repeat creatinine 6.55. EEG was abnormal suggestive moderate encephalopathy. No epileptiform discharge. Patient is found sitting up in a chair at the bedside, legs are elevated. Patient appears to be comfortable. He recalls that Lay catheter was removed yesterday. His mental status is improving. Patient has been afebrile, earlier today heart rate in the 90s to low 100s. Blood pressure 150/81, pulse ox 95% on room air. Cardiology increased frequency of metoprolol to 50 mg 3 times daily. Anticipate probable discharge to [facility] tomorrow. 06/10: Patient remains afebrile, heart rate 80s and 90s, blood pressure 158/81, pulse ox 96% on room air. Repeat blood work reveals WBC 12.5, hemoglobin 9.9, platelet count 178. Sodium 140, potassium 4.0, chloride 101, CO2 22, BUN 37 creatinine 7.7. Blood sugar 121. Calcium 9.6. Total bilirubin 1.2, AST 17, ALT 13, alkaline phosphatase 66. Patient is found today sitting up in a recliner, he appears comfortable, he is awake and alert. He is scheduled for hemodialysis today. Plan was to transition IV antibiotics to oral and discharged to [facility] today once dialysis is completed. However, Covid 19 testing came back positive and discharge was held as [facility] would not accept the patient. REVIEW OF SYSTEMS Constitutional: No fever, no chills, no night sweats. No weight change. Reported weakness, reported fatigue reported lethargy. Reported daytime sleepiness. HEENT: No headache. No blurred vision or double vision, no loss of vision. No loss of Hearing, no ringing in the ears, no dizziness. No nasal drainage or congestion. No epistaxis. No sore throat. Lungs: No shortness of breath, noted cough, minimal sputum production. No wheezing. Cardiovascular: No chest pain, no lower extremity edema. No palpitations. No paroxysmal nocturnal dyspnea. No orthopnea. No lightheadedness or dizziness. No syncopal episodes. Abdominal: No abdominal pain. No nausea, vomiting. No diarrhea. No constipation. No bloody or tarry stools.. No loss of appetite. Genitourinary: No dysuria, increased frequency, urgency. No urinary retention. Patient makes very little urine. Musculoskeletal: No myalgias. No muscle weakness, no gait dysfunction, no frequent falls. No back pain. No neck pain. Integumentary: No wounds, no lesions. No rash or pruritus. No unusual bruising. No change in hair or nails. Neurologic: Reported aphasia. No facial droop. Noted change in mentationimproving . No head injury. No headache. No paralysis. No paresthesia. Psychiatric: No depression. No anxiety. No mood swings. Endocrine: No abnormal blood sugars. No weight change. No excessive sweating or thirst. No cold intolerance. PHYSICAL EXAMINATION Gen: This is a 75-year-old obese male. He is resting in a recliner and appears to be in no acute distress HEENT: Head is atraumatic, normocephalic. Pupils equal, round. Sclerae is anicteric, mucous membranes of the mouth are somewhat dry. NECK: Supple. No JVD. No lymphadenopathy. No thyromegaly. LUNGS: Decreased breath sounds at the bases. No crackles, no wheezes. No intercostal retractions, positive for ronchi to the left lower third. HEART: First heart sound is depressed, second heart sound is normal, there is systolic ejection murmur 2/6 located in the left sternal border. Tachycardic and irregular. ABDOMEN: Soft. Bowel sounds are present. No masses. No tenderness. Lay catheter in place with small amount of urine output. EXTREMITIES: No pedal edema. No calf tenderness. Dorsalis pedis +1 bilaterally. NEUROLOGICAL: Patient awake, alert, able to answer questions and follow a few simple commands. ASSESSMENT AND PLAN 1. Metabolic encephalopathy secondary to aspiration pneumonia. Resolved, no need for lumbar puncture at this time, resume Plavix 75 mg once every day. 2. Acute hypoxic respiratory failure secondary to A. fib with RVR and aspiration pneumonia. continue Metoprolol 50 mg po tid, we will continue with Zosyn 3.375 gr IVPB q 8 hours, continue Xarelto 15 mg orally daily 3. Aspiration pneumonia and sepsis. Continue with Zosyn, DuoNeb treatments every 4 hours as needed, consult with pulmonary medicine appreciated. 4. Lactic acidosis secondary to pneumonia. Continue treatment as a #2. 5. Atrial fibrillation with RVR, paroxysmal atrial fibrillation, status post IV Lopressor. continue with Metoprolol 50 mg po tid, continue Xarelto 15 mg once every day. 6. Acute on chronic diastolic heart failure. we will continue with Metoprolol 50 mg orally tid, continue hemodialysis. 6. History of CVA. we will resume Atorvastatin 10 mg po daily, resume clopidogrel 75 mg once every day. 7. End-stage renal disease on hemodialysis. Consult with nephrology appreciated. Patient scheduled for hemodialysis tomorrow. 8. Hypertension, hypertensive cardiovascular disease. Continue patient on Metoprolol 50 mg po increased frequency to tid. 9. Hyperlipidemia. Continue atorvastatin 10 mg po daily. 10. History of coronary artery disease status post PCI. Continue patient on Imdur 30 mg daily, Lipitor, continue Lopressor 50 mg orally tid and clopidogrel 75 mg once every day. 11. Moderate intermittent asthma, stable. Continue Pulmicort 0.5 mg twice daily, Mucinex 1200 mg oral every 12 hours as needed for cough, DuoNeb treatments. 12. Benign prostatic hypertrophy. Stable. 13. Gastroesophageal reflux disease. Continue PPI. 14. DVT prophylaxis. we will continue with Xarelto 15 mg orally daily. 15. Testing positive for COVID19. 16. Full code. 17. PT evaluation. DISCHARGE PLAN Subacute rehab. Impression and plan of care have been directed as dictated by the signing physician. Missy Manzano nurse practitioner acting as scribe for signing physician. Objective - Vital Signs Vital signs: Vital Signs Temp 97.9 F 06/10/22 11:55 Pulse 61 06/10/22 11:55 Resp 18 06/10/22 11:55 BP 130/66 06/10/22 11:55 Pulse Ox 93 L 06/10/22 11:55 FiO2 Intake & Output 06/09/22 06/10/22 06/10/22 18:59 06:59 18:59 Intake Total 240 480 Output Total 0 Balance 240 480 Weight 89 kg 91.5 kg Intake: Oral 240 480 Output: Urine 0 Other: Voiding Method Diaper Diaper Diaper # Voids 1 # Bowel Movements 1 1 0 - Labs CBC & Chem 7: 06/10/22 08:12 06/10/22 08:12 Labs: Abnormal Lab Results - Last 24 Hours (Table) 06/10/22 06/10/22 06/10/22 Range/Units 08:12 08:12 12:26 WBC 12.5 H (3.8-10.6) k/uL RBC 3.23 L (4.30-5.90) m/uL Hgb 9.9 L (13.0-17.5) gm/dL Hct 31.6 L (39.0-53.0) % RDW 15.8 H (11.5-15.5) % BUN 37 H (9-20) mg/dL Creatinine 7.70 H* (0.66-1.25) mg/dL Glucose 121 H (74-99) mg/dL Albumin 3.4 L (3.5-5.0) g/dL Coronavirus (PCR) Detected A (Not Detectd) Microbiology - Last 24 Hours (Table) 06/04/22 11:08 Blood Culture - Preliminary Blood No Growth after 120 hours 06/04/22 11:08 Blood Culture - Preliminary Blood No Growth after 120 hours
[2022-06-11] MEDS: PANTOPRAZOLE 40 MG TABLET PO SCH ×2 (09:48→20:35)
[2022-06-11] MEDS: FINASTERIDE 5 MG TAB PO SCH (09:48)
[2022-06-11] MEDS: CLOPIDOGREL 75 MG TAB PO SCH (09:48)
[2022-06-11] MEDS: allopurinoL 100 MG TAB PO SCH (09:49)
[2022-06-11] MEDS: DOCUSATE 100 MG CAP PO SCH ×2 (09:49→20:35)
[2022-06-11] MEDS: NITROGLYCERIN OINT 1 INCH/GM PACKET TOPICAL SCH ×3 (09:49→22:59)
[2022-06-11] MEDS: METOPROLOL TARTRATE 50 MG TAB PO SCH ×3 (11:48→20:35)
[2022-06-11] MEDS: PIPERACILLIN-TAZOBACTAM 3.375 GM in SODIUM CHLORIDE 0.9% 100 ML IVPB SCH ×2 (12:16→22:58)
--- NOTE | 2022-06-11 16:41 | P.PN ---
Subjective Patient is seen for follow-up for end-stage renal disease,maintained on Thursday schedule. patient tolerated his treatment well over the weekend No significant complaints today Awake comfortable not in any acute distress Status post hemodialysis yesterday Objective - Vital Signs Vital signs: Vital Signs Temp 97.9 F 06/11/22 12:00 Pulse 99 06/11/22 12:00 Resp 18 06/11/22 14:00 BP 133/64 06/11/22 12:00 Pulse Ox 97 06/11/22 12:00 FiO2 Intake & Output 06/10/22 06/11/22 06/11/22 18:59 06:59 18:59 Intake Total 480 240 476 Output Total 2500 0 0 Balance -2019 240 476 Intake: Oral 480 240 476 Output: Urine 0 0 0 Hemodialysis 2500 Other: Voiding Method Diaper Diaper Diaper # Voids 0 # Bowel Movements 0 0 1 - Exam Patient is awake, comfortable Examination of the heart S1 and S2 Examination of the lungs bilateral breath sounds are heard Abdomen is soft nontender Examination of lower extremities shows no significant edema 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 Patient is moving all 4 extremities. - Labs CBC & Chem 7: 06/10/22 08:12 06/10/22 08:12 Labs: Microbiology - Last 24 Hours (Table) 06/04/22 11:08 Blood Culture - Final Blood No Growth after 144 hours 06/04/22 11:08 Blood Culture - Final Blood No Growth after 144 hours Assessment and Plan Assessment: 1. End-stage renal disease maintained on hemodialysis on Thursday schedule. Patient has AV fistula. 2. Altered mental status. Possibly medication effect versus infection. Improved. 3. Chronic kidney disease mineral bone disease maintained on Renvela. Phosphorus 4.1. 4. Fever. Possible pneumonia. On antibiotics. 5. A. fib with RVR maintained on Cardizem drip. 6. Chronic diastolic CHF. 7. Anemia of chronic kidney disease. Hemoglobin 10.0 8. History of coronary artery disease. Plan: Hemodialysis in a.m. Consider discharge to rehab facility given repeated admissions
[2022-06-11] MEDS: ATORVASTATIN 10 MG TAB PO SCH (17:23)
[2022-06-11] MEDS: RIVAROXABAN 15 MG TAB PO SCH (17:23)
[2022-06-11] MEDS: SODIUM CHLORIDE 0.9% 1,000 ML IV SCH (17:24)
[2022-06-11] MEDS: MULTIVITAMINS, THERA 1 EACH TAB PO SCH (20:35)
[2022-06-11] MEDS: MONTELUKAST 10 MG TAB PO SCH (20:35)
[2022-06-11] MEDS: LORATADINE 10 MG TAB PO SCH (20:35)
--- NOTE | 2022-06-11 22:13 | P.PN ---
Subjective Progress Note Date: 06/10/22 Principal diagnosis: Fever and possible pneumonia Patient is a 76-year-old male with a past medical history significant for end-stage renal disease on hemodialysis presented to the hospital mental status changes, patient did have fever and elevated white count and concern for pneumonia and questionable aspiration etiology on today's evaluation that is 06/10/2022, the patient remains to be afebrile, the patient is breathing comfortably on room air, the patient seemed to be slightly agitated today and did not answer any question no vomiting no diarrhea was reported by the nursing staff Objective - Vital Signs Vital signs: Vital Signs Temp 97.9 F 06/10/22 11:55 Pulse 61 06/10/22 11:55 Resp 18 06/10/22 11:55 BP 130/66 06/10/22 11:55 Pulse Ox 93 L 06/10/22 11:55 FiO2 Intake & Output 06/09/22 06/10/22 06/10/22 18:59 06:59 18:59 Intake Total 240 480 Output Total 0 Balance 240 480 Weight 89 kg 91.5 kg Intake: Oral 240 480 Output: Urine 0 Other: Voiding Method Diaper Diaper Diaper # Voids 1 # Bowel Movements 1 1 0 - Exam GENERAL DESCRIPTION: An elderly male lying in bed in no distress RESPIRATORY SYSTEM: Unlabored breathing , decreased breath sounds at bases HEART: S1 S2 regular rate and rhythm , ABDOMEN: Soft , no tenderness EXTREMITIES: No edema feet - Labs CBC & Chem 7: 06/10/22 08:12 06/10/22 08:12 Labs: Abnormal Lab Results - Last 24 Hours (Table) 06/10/22 06/10/22 06/10/22 Range/Units 08:12 08:12 12:26 WBC 12.5 H (3.8-10.6) k/uL RBC 3.23 L (4.30-5.90) m/uL Hgb 9.9 L (13.0-17.5) gm/dL Hct 31.6 L (39.0-53.0) % RDW 15.8 H (11.5-15.5) % BUN 37 H (9-20) mg/dL Creatinine 7.70 H* (0.66-1.25) mg/dL Glucose 121 H (74-99) mg/dL Albumin 3.4 L (3.5-5.0) g/dL Coronavirus (PCR) Detected A (Not Detectd) Microbiology - Last 24 Hours (Table) 06/04/22 11:08 Blood Culture - Final Blood No Growth after 144 hours 06/04/22 11:08 Blood Culture - Final Blood No Growth after 144 hours Assessment and Plan (1) Aspiration pneumonia Current Visit: Yes Status: Acute Code(s): J69.0 - PNEUMONITIS DUE TO INHALATION OF FOOD AND VOMIT SNOMED Code(s): 403908044 (2) Febrile illness, acute Current Visit: Yes Status: Acute Code(s): R50.9 - FEVER, UNSPECIFIED SNOMED Code(s): 495701421 Plan: 1patient presented to hospital with sepsis and respiratory have fever elevated white count with evidence of increasing infiltrate on the left side chest x-ray with concern for possible aspiration pneumonia likely from enteric gram-negative pathogen and less likely gram-positive however the patient did have significant mental status changes and underlying encephalitis less likely 2- patient has shown clinical improvement with resolution of fever culture had been negative , patient is currently being treated with Zosyn finishing therapy with Avelox Time with Patient: Less than 30
--- NOTE | 2022-06-11 22:15 | P.PN ---
Subjective Progress Note Date: 06/11/22 Principal diagnosis: Fever and possible pneumonia Patient is a 76-year-old male with a past medical history significant for end-stage renal disease on hemodialysis presented to the hospital mental status changes, patient did have fever and elevated white count and concern for pneumonia and questionable aspiration etiology on today's evaluation that is 06/11/2022, the patient did have a low-grade fever of 100F [place] however the patient is afebrile since then, the patient is breathing comfortably on room air, the patient seemed to be pleasantly confused and did not answer any questions no vomiting or diarrhea was reported by the nursing staff Objective - Vital Signs Vital signs: Vital Signs Temp 97.9 F 06/11/22 12:00 Pulse 99 06/11/22 12:00 Resp 18 06/11/22 14:00 BP 133/64 06/11/22 12:00 Pulse Ox 97 06/11/22 12:00 FiO2 Intake & Output 06/10/22 06/11/22 06/11/22 18:59 06:59 18:59 Intake Total 480 240 476 Output Total 2500 0 0 Balance -2019 240 476 Intake: Oral 480 240 476 Output: Urine 0 0 0 Hemodialysis 2500 Other: Voiding Method Diaper Diaper Diaper # Voids 0 # Bowel Movements 0 0 0 - Exam GENERAL DESCRIPTION: An elderly male lying in bed in no distress RESPIRATORY SYSTEM: Unlabored breathing , decreased breath sounds at bases HEART: S1 S2 regular rate and rhythm , ABDOMEN: Soft , no tenderness EXTREMITIES: No edema feet - Labs CBC & Chem 7: 06/10/22 08:12 06/10/22 08:12 Labs: Microbiology - Last 24 Hours (Table) 06/04/22 11:08 Blood Culture - Final Blood No Growth after 144 hours 06/04/22 11:08 Blood Culture - Final Blood No Growth after 144 hours Assessment and Plan (1) Aspiration pneumonia Current Visit: Yes Status: Acute Code(s): J69.0 - PNEUMONITIS DUE TO INHALATION OF FOOD AND VOMIT SNOMED Code(s): 859768190 (2) Febrile illness, acute Current Visit: Yes Status: Acute Code(s): R50.9 - FEVER, UNSPECIFIED SNOMED Code(s): 061420185 Plan: 1patient presented to hospital with sepsis and respiratory have fever elevated white count with evidence of increasing infiltrate on the left side chest x-ray with concern for possible aspiration pneumonia likely from enteric gram-negative pathogen and less likely gram-positive however the patient did have significant mental status changes and underlying encephalitis less likely 2- patient fever has resolved and culture had been negative , patient would continue with Zosyn we will repeat a chest x-ray inflammation markers with a.m. lab Time with Patient: Less than 30
[2022-06-12] MEDS: SEVELAMER 800 MG TAB PO SCH ×2 (06:08→17:17)
[2022-06-12] MEDS: FLUTICASONE 110 MCG INHALER INHALATION SCH ×2 (08:28→20:04)
[2022-06-12] MEDS: ALBUTEROL HFA INHALER INHALATION PRN ×2 (08:28→15:33)
--- NOTE | 2022-06-12 09:09 | P.PN ---
Subjective Progress Note Date: 06/11/22 HISTORY OF PRESENT ILLNESS This is a 76-year-old male patient with a previous medical history significant for hypertension and hypertensive cardiovascular disease, hyperlipidemia, end- stage renal disease on hemodialysis Thursday and Thursday, history of asthma/COPD, history of CAD post-PCI, history of ankylosing spondylitis, obstructive sleep apnea on a CPAP, CVA. Patient had CVA in June 2021 followed by a long stay at [facility] for subacute rehab. Patient was eventually discharged home and approximately January 2022 to live with his . She states that he did have 2 falls back in February but none in March and April, this month patient has had 5 falls requiring EMS to come and help her get him up. On Thursday and the morning she heard a crash and found him in the bathroom was jammed behind the door. He was able to pull himself up and denied having any pain or injury. Patient went back to bed and when he got for breakfast she heard that he had another fall but this time he had hit his head. EMS picked the patient brought him to [facility]. Patient apparently underwent a CAT scan of the head and neck which were negative. He was prepared for discharge home but he was scheduled for an EGD with Dr. Mendoza on Thursday which is done every 2 years due to Prabhakar's esophagus and it was decided the patient would stay and undergo EGD. The procedure was uneventful but patient had difficulty waking from anesthesia following. He ended up staying another day and was discharged home yesterday. Patient was apparently in his normal state of health and awake and alert when he came home was not having any issues at all. They had dinner together he watch some TV and went to bed around 10 PM. He was started on a new medication, Seroquel 12.5 mg at bedtime which she gave to him before bed. When patient woke up he was having significant cough around 5:45 in the morning. He was able go back to sleep until about 8 AM but she noticed a significant change in his mental status. His last hemodialysis was yesterday and usual schedule is Thursday. Patient was found have a temperature 100.3, heart rate documented at 120 [address] jonatan also at 150 with A. fib with RVR and was given metoprolol 5 mg IV push with improvement down to 110s to 120s for heart rate. Blood pressure initially 143/100, pulse ox 100% on 4 L nasal cannula. WBC 11.4, hemoglobin 10.4, platelet count 201. INR 1.4. Sodium 130, potassium 4.7, chloride 96, CO2 25, BUN 28 creatinine was 5.49. Blood sugar 166. Lactic acid 2.5. Magnesium 1.7. Total bilirubin 1.3, AST 19, ALT 12, alkaline phosphatase 94. Troponin 0.031. ProBNP 30,400. Albumin 3.7. Urinalysis was clear with nitrate and leukoesterase negative. Coronavirus PCR, influenza A, influenza B all were not detected. Lay catheter was placed as a urinalysis was required in the emergency center. Chest x-ray correlate for heart failure consider diffuse interstitial and alveolar pneumonia. Patient was started on cefepime, DuoNeb treatments, consults with pulmonary medicine and nephrology. 06/05: Patient is seen today on the [facility] floor, he continues to have significant mental status changes and not improved from yesterday. CAT scan of the brain without contrast ordered but was nondiagnostic. Patient has been seen by nephrology and undergoing hemodialysis today. Due to confusion and inability to concentrate, one dose of IV Ativan ordered. Patient has been seen by pulmonary medicine and cefepime transitioned to IV Zosyn. classroom monitor remains atrial fibrillation with controlled rate. Last evening, Cardizem drip was started at 5 mg per hour as heart rate was in the 180s and pulse ox dropped down to 86% and 2 L nasal cannula was applied. Today, patient is unable to take any of his oral medications due to his mental status. His temperature max has been 102.3, heart rate now at 87, blood pressure 142/87, pulse ox 93% on room air. Consult added for cardiology although heart rate is controlled at this time. Patient is continued on Cardizem drip due to inability to take oral medications. 06/06: Patient is found sleeping in his bed this morning. He does wake up opens his eyes and answering questions with one-word answers. He is able to drink water without any signs of coughing or choking. He does have a speech therapy evaluation scheduled for today. Patient is continued on IV Zosyn and IV vancomycin. Blood work from yesterday revealed WBC of 15.4, hemoglobin 10.1 and platelet count 165. Sodium 138, potassium 5.3, chloride 100, CO2 23, BUN 42 and creatinine 7.05. Blood sugar 125. Ammonia level less than 9. Pro-calcitonin 0.47. Total bilirubin 1.5, AST 33, ALT 11, alkaline phosphatase 71. Consult was added yesterday for neurology due to concern for ongoing mental status changes and patient not improving after starting antibiotics. Patient was seen by Dr. Beck for suspected encephalopathy, EEG and repeat CAT scan have been ordered and anesthesia for CSF study. Patient's last dose of Xarelto would have been on 06/03. Neurologys added in infectious disease as well. Patient is scheduled for hemodialysis tomorrow. Dr. Campuzano is recommending continuing vancomycin and Zosyn while waiting for cultures finalized.blood cultures are sh owing no growth after 24 hours 1 specimen. Cardiology consult was added yesterday for A. fib with RVR. Patient remains on Cardizem drip. He has not been started on oral medications as of yet and waiting for speech therapy evaluation but expect that patient will be started on orals today. 06/07: Patient is sitting up in bed more awake he is eating pureed diet and drink water without issues, has been on Zosyn 3.375 grIVPB Q 8 h for possible gram negative pneumonia, likely due to aspiration, we will continue with monitoring and he will likely be going back to [facility] next week, we will keep on IV heparin, no need for LP at this point 06/08: Patient is laying down in bed in no apparent distress, he is feeling a lot better today, I spoke with his and given updated about his current con dition, he'll likely require to go to subacute rehabilitation she elected to go to [facility] at this time, continue current treatment plan, patient is to resume his medication he is currently off heparin drip, his back on Xarelto, patient back on Plavix 75 mg once every day CAD and stroke prevention as well, we'll continue to monitor the patient very closely. 06/09: Patient remains in atrial fibrillation with controlled rate. He is back on his oral medications and continued on IV Zosyn. Next hemodialysis is scheduled for Thursday on his normal schedule of Thursday. Repeat creatinine 6.55. EEG was abnormal suggestive moderate encephalopathy. No epileptiform discharge. Patient is found sitting up in a chair at the bedside, legs are elevated. Patient appears to be comfortable. He recalls that Lay catheter was removed yesterday. His mental status is improving. Patient has been afebrile, earlier today heart rate in the 90s to low 100s. Blood pressure 150/81, pulse ox 95% on room air. Cardiology increased frequency of metoprolol to 50 mg 3 times daily. Anticipate probable discharge to [facility] tomorrow. 06/10: Patient remains afebrile, heart rate 80s and 90s, blood pressure 158/81, pulse ox 96% on room air. Repeat blood work reveals WBC 12.5, hemoglobin 9.9, platelet count 178. Sodium 140, potassium 4.0, chloride 101, CO2 22, BUN 37 creatinine 7.7. Blood sugar 121. Calcium 9.6. Total bilirubin 1.2, AST 17, ALT 13, alkaline phosphatase 66. Patient is found today sitting up in a recliner, he appears comfortable, he is awake and alert. He is scheduled for hemodialysis today. Plan was to transition IV antibiotics to oral and discharged to [facility] today once dialysis is completed. However, Covid 19 testing came back positive and discharge was held as [facility] would not accept the patient. 06/11: Patient remains afebrile, heart rate 96, blood pressure 148/75, pulse ox 95% on room air. Patient is more groggy today from yesterday. Social work is following for discharge plan on 06/20 due to positive Covid testing. [facility] was unable to accept patient due to staffing issues. Patient will be transferred to [facility] floor without telemetry. REVIEW OF SYSTEMS Constitutional: No fever, no chills, no night sweats. No weight change. Reported weakness, reported fatigue reported lethargy. Noted daytime sleep iness. HEENT: No headache. No blurred vision or double vision, no loss of vision. No loss of Hearing, no ringing in the ears, no dizziness. No nasal drainage or congestion. No epistaxis. No sore throat. Lungs: No shortness of breath, noted cough, minimal sputum production. No wheezing. Cardiovascular: No chest pain, no lower extremity edema. No palpitations. No paroxysmal nocturnal dyspnea. No orthopnea. No lightheadedness or dizziness. No syncopal episodes. Abdominal: No abdominal pain. No nausea, vomiting. No diarrhea. No constipation. No bloody or tarry stools.. No loss of appetite. Genitourinary: No dysuria, increased frequency, urgency. No urinary retention. Patient makes very little urine. Musculoskeletal: No myalgias. No muscle weakness, no gait dysfunction, no fr equent falls. No back pain. No neck pain. Integumentary: No wounds, no lesions. No rash or pruritus. No unusual bruising. No change in hair or nails. Neurologic: Reported aphasia. No facial droop. Noted change in mentationimproving . No head injury. No headache. No paralysis. No paresthesia. Psychiatric: No depression. No anxiety. No mood swings. Endocrine: No abnormal blood sugars. No weight change. No excessive sweating or thirst. No cold intolerance. PHYSICAL EXAMINATION Gen: This is a 75-year-old obese male. He is resting in a recliner an d appears to be in no acute distress HEENT: Head is atraumatic, normocephalic. Pupils equal, round. Sclerae is anicteric, mucous membranes of the mouth are somewhat dry. NECK: Supple. No JVD. No lymphadenopathy. No thyromegaly. LUNGS: Decreased breath sounds at the bases. No crackles, no wheezes. No intercostal retractions, positive for ronchi to the left lower third. HEART: First heart sound is depressed, second heart sound is normal, there is systolic ejection murmur 2/6 located in the left sternal border. Tachycardic and irregular. ABDOMEN: Soft. Bowel sounds are present. No masses. No tenderness. Lay catheter in place with small amount of urine output. EXTREMITIES: No pedal edema. No calf tenderness. Dorsalis pedis +1 bilaterally. NEUROLOGICAL: Patient awake, alert, able to answer questions and follow a few simple commands. ASSESSMENT AND PLAN 1. Metabolic encephalopathy secondary to aspiration pneumonia. Resolved, no need for lumbar puncture at this time, resume Plavix 75 mg once every day. 2. Acute hypoxic respiratory failure secondary to A. fib with RVR and aspiration pneumonia. continue Metoprolol 50 mg po tid, continue IV Zosyn, continue Xarelto 15 mg orally daily 3. Aspiration pneumonia and sepsis. Continue with Zosyn, DuoNeb treatments every 4 hours as needed, consult with pulmonary medicine appreciated. 4. Lactic acidosis secondary to pneumonia. Continue treatment as a #2. 5. Atrial fibrillation with RVR, paroxysmal atrial fibrillation, status post IV Lopressor. continue with Metoprolol 50 mg po tid, continue Xarelto 15 mg once every day. 6. Acute on chronic diastolic heart failure. we will continue with Metoprolol 50 mg orally tid, continue hemodialysis. 6. History of CVA. we will resume Atorvastatin 10 mg po daily, resume clopidogrel 75 mg once every day. 7. End-stage renal disease on hemodialysis. Consult with nephrology appreciated. Patient scheduled for hemodialysis tomorrow. 8. Hypertension, hypertensive cardiovascular disease. Continue patient on Metoprolol 50 mg po increased frequency to tid. 9. Hyperlipidemia. Continue atorvastatin 10 mg po daily. 10. History of coronary artery disease status post PCI. Continue patient on Imdur 30 mg daily, Lipitor, continue Lopressor 50 mg orally tid and clopidogrel 75 mg once every day. 11. Moderate intermittent asthma, stable. Continue Pulmicort 0.5 mg twice daily, Mucinex 1200 mg oral every 12 hours as needed for cough, DuoNeb treatments. 12. Benign prostatic hypertrophy. Stable. 13. Gastroesophageal reflux disease. Continue PPI. 14. DVT prophylaxis. we will continue with Xarelto 15 mg orally daily. 15. Testing positive for COVID19. 16. Full code. 17. PT evaluation. DISCHARGE PLAN Subacute rehab. Impression and plan of care have been directed as dictated by the signing physician. Missy Manzano nurse practitioner acting as scribe for signing physician. Objective - Vital Signs Vital signs: Vital Signs Temp 98.8 F 06/10/22 23:20 Pulse 96 06/11/22 04:10 Resp 18 06/11/22 04:10 BP 148/75 06/11/22 04:10 Pulse Ox 95 06/11/22 04:10 FiO2 Intake & Output 06/10/22 06/11/22 06/11/22 18:59 06:59 18:59 Intake Total 480 240 118 Output Total 2500 0 Balance -2020 240 118 Intake: Oral 480 240 118 Output: Urine 0 0 Hemodialysis 2500 Other: Voiding Method Diaper Diaper # Voids 0 # Bowel Movements 0 0 - Labs CBC & Chem 7: 06/10/22 08:12 06/10/22 08:12 Labs: Abnormal Lab Results - Last 24 Hours (Table) 06/10/22 06/10/22 06/10/22 Range/Units 08:12 08:12 12:26 WBC 12.5 H (3.8-10.6) k/uL RBC 3.23 L (4.30-5.90) m/uL Hgb 9.9 L (13.0-17.5) gm/dL Hct 31.6 L (39.0-53.0) % RDW 15.8 H (11.5-15.5) % BUN 37 H (9-20) mg/dL Creatinine 7.70 H* (0.66-1.25) mg/dL Glucose 121 H (74-99) mg/dL Albumin 3.4 L (3.5-5.0) g/dL Coronavirus (PCR) Detected A (Not Detectd) Microbiology - Last 24 Hours (Table) 06/04/22 11:08 Blood Culture - Final Blood No Growth after 144 hours 06/04/22 11:08 Blood Culture - Final Blood No Growth after 144 hours
--- NOTE | 2022-06-12 09:15 | P.PN ---
Subjective Progress Note Date: 06/12/22 HISTORY OF PRESENT ILLNESS This is a 76-year-old male patient with a previous medical history significant for hypertension and hypertensive cardiovascular disease, hyperlipidemia, end- stage renal disease on hemodialysis Thursday and Thursday, history of asthma/COPD, history of CAD post-PCI, history of ankylosing spondylitis, obstructive sleep apnea on a CPAP, CVA. Patient had CVA in June 2021 followed by a long stay at [facility] for subacute rehab. Patient was eventually discharged home and approximately January 2022 to live with his . She states that he did have 2 falls back in February but none in March and April, this month patient has had 5 falls requiring EMS to come and help her get him up. On Thursday and the morning she heard a crash and found him in the bathroom was jammed behind the door. He was able to pull himself up and denied having any pain or injury. Patient went back to bed and when he got for breakfast she heard that he had another fall but this time he had hit his head. EMS picked the patient brought him to [facility]. Patient apparently underwent a CAT scan of the head and neck which were negative. He was prepared for discharge home but he was scheduled for an EGD with Dr. Mendoza on Thursday which is done every 2 years due to Prabhakar's esophagus and it was decided the patient would stay and undergo EGD. The procedure was uneventful but patient had difficulty waking from anesthesia following. He ended up staying another day and was discharged home yesterday. Patient was apparently in his normal state of health and awake and alert when he came home was not having any issues at all. They had dinner together he watch some TV and went to bed around 10 PM. He was started on a new medication, Seroquel 12.5 mg at bedtime which she gave to him before bed. When patient woke up he was having significant cough around 5:45 in the morning. He was able go back to sleep until about 8 AM but she noticed a significant change in his mental status. His last hemodialysis was yesterday and usual schedule is Thursday. Patient was found have a temperature 100.3, heart rate documented at 120 [address] jonatan also at 150 with A. fib with RVR and was given metoprolol 5 mg IV push with improvement down to 110s to 120s for heart rate. Blood pressure initially 143/100, pulse ox 100% on 4 L nasal cannula. WBC 11.4, hemoglobin 10.4, platelet count 201. INR 1.4. Sodium 130, potassium 4.7, chloride 96, CO2 25, BUN 28 creatinine was 5.49. Blood sugar 166. Lactic acid 2.5. Magnesium 1.7. Total bilirubin 1.3, AST 19, ALT 12, alkaline phosphatase 94. Troponin 0.031. ProBNP 30,400. Albumin 3.7. Urinalysis was clear with nitrate and leukoesterase negative. Coronavirus PCR, influenza A, influenza B all were not detected. Lay catheter was placed as a urinalysis was required in the emergency center. Chest x-ray correlate for heart failure consider diffuse interstitial and alveolar pneumonia. Patient was started on cefepime, DuoNeb treatments, consults with pulmonary medicine and nephrology. 06/05: Patient is seen today on the [facility] floor, he continues to have significant mental status changes and not improved from yesterday. CAT scan of the brain without contrast ordered but was nondiagnostic. Patient has been seen by nephrology and undergoing hemodialysis today. Due to confusion and inability to concentrate, one dose of IV Ativan ordered. Patient has been seen by pulmonary medicine and cefepime transitioned to IV Zosyn. 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 Last evening, Cardizem drip was started at 5 mg per hour as heart rate was in the 180s and pulse ox dropped down to 86% and 2 L nasal cannula was applied. Today, patient is unable to take any of his oral medications due to his mental status. His temperature max has been 102.3, heart rate now at 87, blood pressure 142/87, pulse ox 93% on room air. Consult added for cardiology although heart rate is controlled at this time. Patient is continued on Cardizem drip due to inability to take oral medications. 06/06: Patient is found sleeping in his bed this morning. He does wake up opens his eyes and answering questions with one-word answers. He is able to drink water without any signs of coughing or choking. He does have a speech therapy evaluation scheduled for today. Patient is continued on IV Zosyn and IV vancomycin. Blood work from yesterday revealed WBC of 15.4, hemoglobin 10.1 and platelet count 165. Sodium 138, potassium 5.3, chloride 100, CO2 23, BUN 42 and creatinine 7.05. Blood sugar 125. Ammonia level less than 9. Pro-calcitonin 0.47. Total bilirubin 1.5, AST 33, ALT 11, alkaline phosphatase 71. Consult was added yesterday for neurology due to concern for ongoing mental status changes and patient not improving after starting antibiotics. Patient was seen by Dr. Beck for suspected encephalopathy, EEG and repeat CAT scan have been ordered and anesthesia for CSF study. Patient's last dose of Xarelto would have been on 06/03. Neurologys added in infectious disease as well. Patient is scheduled for hemodialysis tomorrow. Dr. Campuzano is recommending continuing vancomycin and Zosyn while waiting for cultures finalized.blood cultures are sh owing no growth after 24 hours 1 specimen. Cardiology consult was added yesterday for A. fib with RVR. Patient remains on Cardizem drip. He has not been started on oral medications as of yet and waiting for speech therapy evaluation but expect that patient will be started on orals today. 06/07: Patient is sitting up in bed more awake he is eating pureed diet and drink water without issues, has been on Zosyn 3.375 grIVPB Q 8 h for possible gram negative pneumonia, likely due to aspiration, we will continue with monitoring and he will likely be going back to [facility] next week, we will keep on IV heparin, no need for LP at this point 06/08: Patient is laying down in bed in no apparent distress, he is feeling a lot better today, I spoke with his and given updated about his current con dition, he'll likely require to go to subacute rehabilitation she elected to go to [facility] at this time, continue current treatment plan, patient is to resume his medication he is currently off heparin drip, his back on Xarelto, patient back on Plavix 75 mg once every day CAD and stroke prevention as well, we'll continue to monitor the patient very closely. 06/09: Patient remains in atrial fibrillation with controlled rate. He is back on his oral medications and continued on IV Zosyn. Next hemodialysis is scheduled for Thursday on his normal schedule of Thursday. Repeat creatinine 6.55. EEG was abnormal suggestive moderate encephalopathy. No epileptiform discharge. Patient is found sitting up in a chair at the bedside, legs are elevated. Patient appears to be comfortable. He recalls that Lay catheter was removed yesterday. His mental status is improving. Patient has been afebrile, earlier today heart rate in the 90s to low 100s. Blood pressure 150/81, pulse ox 95% on room air. Cardiology increased frequency of metoprolol to 50 mg 3 times daily. Anticipate probable discharge to [facility] tomorrow. 06/10: Patient remains afebrile, heart rate 80s and 90s, blood pressure 158/81, pulse ox 96% on room air. Repeat blood work reveals WBC 12.5, hemoglobin 9.9, platelet count 178. Sodium 140, potassium 4.0, chloride 101, CO2 22, BUN 37 creatinine 7.7. Blood sugar 121. Calcium 9.6. Total bilirubin 1.2, AST 17, ALT 13, alkaline phosphatase 66. Patient is found today sitting up in a recliner, he appears comfortable, he is awake and alert. He is scheduled for hemodialysis today. Plan was to transition IV antibiotics to oral and discharged to [facility] today once dialysis is completed. However, Covid 19 testing came back positive and discharge was held as [facility] would not accept the patient. 06/11: Patient remains afebrile, heart rate 96, blood pressure 148/75, pulse ox 95% on room air. Patient is more groggy today from yesterday. Social work is following for discharge plan on 06/20 due to positive Covid testing. [facility] was unable to accept patient due to staffing issues. Patient will be transferred to [facility] floor without telemetry. 06/12: Patient remains afebrile, heart rate 85, blood pressure 159/96, pulse ox 96% on room air. Patient is denying any new complaints. He awakens to verbal stimuli. He is waiting for a bed on the [facility] floor. We will transition Zosyn to oral Levaquin to complete course which will be done before he is able to be discharged to [facility]. Patient is due for hemodialysis today. REVIEW OF SYSTEMS Constitutional: No fever, no chills, no night sweats. No weight change. Reported weakness, reported fatigue reported lethargy. Noted daytime sleepiness. HEENT: No headache. No blurred vision or double vision, no loss of vision. No loss of Hearing, no ringing in the ears, no dizziness. No nasal drainage or congestion. No epistaxis. No sore throat. Lungs: No shortness of breath, noted cough, minimal sputum production. No wheezing. Cardiovascular: No chest pain, no lower extremity edema. No palpitations. No paroxysmal nocturnal dyspnea. No orthopnea. No lightheadedness or dizziness. No syncopal episodes. Abdominal: No abdominal pain. No nausea, vomiting. No diarrhea. No constipation. No bloody or tarry stools.. No loss of appetite. Genitourinary: No dysuria, increased frequency, urgency. No urinary retention. Patient makes very little urine. Musculoskeletal: No myalgias. No muscle weakness, no gait dysfunction, no frequent falls. No back pain. No neck pain. Integumentary: No wounds, no lesions. No rash or pruritus. No unusual bruisi ng. No change in hair or nails. Neurologic: Reported aphasia. No facial droop. Noted change in men tationimproving . No head injury. No headache. No paralysis. No paresthesia. Psychiatric: No depression. No anxiety. No mood swings. Endocrine: No abnormal blood sugars. No weight change. No excessive sweating or thirst. No cold intolerance. PHYSICAL EXAMINATION Gen: This is a 75-year-old obese male. He is resting in a recliner and appears to be in no acute distress HEENT: Head is atraumatic, normocephalic. Pupils equal, round. Sclerae is anicteric, mucous membranes of the mouth are somewhat dry. NECK: Supple. No JVD. No lymphadenopathy. No thyromegaly. LUNGS: Decreased breath sounds at the bases. No crackles, no wheezes. No intercostal retractions, positive for ronchi to the left lower third. HEART: First heart sound is depressed, second heart sound is normal, there is systolic ejection murmur 2/6 located in the left sternal border. Tachycardic and irregular. ABDOMEN: Soft. Bowel sounds are present. No masses. No tenderness. Lay ca theter in place with small amount of urine output. EXTREMITIES: No pedal edema. No calf tenderness. Dorsalis pedis +1 bilaterally. NEUROLOGICAL: Patient awake, alert, able to answer questions and follow a few simple commands. ASSESSMENT AND PLAN 1. Metabolic encephalopathy secondary to aspiration pneumonia. Resolved, no need for lumbar puncture at this time, resume Plavix 75 mg once every day. 2. Acute hypoxic respiratory failure secondary to A. fib with RVR and aspiration pneumonia. continue Metoprolol 50 mg po tid, continue antibiotics transition to oral Levaquin, continue Xarelto 15 mg orally daily 3. Aspiration pneumonia and sepsis. Continue with Zosyn, DuoNeb treatments every 4 hours as needed, consult with pulmonary medicine appreciated. 4. Lactic acidosis secondary to pneumonia. Continue treatment as a #2. 5. Atrial fibrillation with RVR, paroxysmal atrial fibrillation, status post IV Lopressor. continue with Metoprolol 50 mg po tid, continue Xarelto 15 mg once every day. 6. Acute on chronic diastolic heart failure. we will continue with Metoprolol 50 mg orally tid, continue hemodialysis. 6. History of CVA. we will resume Atorvastatin 10 mg po daily, resume clopidogrel 75 mg once every day. 7. End-stage renal disease on hemodialysis. Consult with nephrology appreciated. Patient scheduled for hemodialysis today. 8. Hypertension, hypertensive cardiovascular disease. Continue patient on Metoprolol 50 mg po increased frequency to tid. 9. Hyperlipidemia. Continue atorvastatin 10 mg po daily. 10. History of coronary artery disease status post PCI. Continue patient on Imdur 30 mg daily, Lipitor, continue Lopressor 50 mg orally tid and clopidogrel 75 mg once every day. 11. Moderate intermittent asthma, stable. Continue Pulmicort 0.5 mg twice daily, Mucinex 1200 mg oral every 12 hours as needed for cough, DuoNeb treatments. 12. Benign prostatic hypertrophy. Stable. 13. Gastroesophageal reflux disease. Continue PPI. 14. DVT prophylaxis. we will continue with Xarelto 15 mg orally daily. 15. Testing positive for COVID19. 16. Full code. 17. PT evaluation. DISCHARGE PLAN Subacute rehab at [facility] on 06/20. Impression and plan of care have been directed as dictated by the signing romina trujillo. Missy Manzano nurse practitioner acting as scribe for signing physician. Objective - Vital Signs Vital signs: Vital Signs Temp 98 F 06/12/22 03:50 Pulse 85 06/12/22 03:50 Resp 17 06/12/22 03:50 BP 159/96 06/12/22 03:50 Pulse Ox 96 06/12/22 03:50 FiO2 Intake & Output 06/11/22 06/12/22 06/12/22 18:59 06:59 18:59 Intake Total 476 118 236 Output Total 0 0 Balance 476 118 236 Weight 92.5 kg Intake: Oral 476 118 236 Output: Urine 0 0 Other: Voiding Method Diaper Diaper # Voids 1 # Bowel Movements 1 - Labs CBC & Chem 7: 06/10/22 08:12 06/10/22 08:12
[2022-06-12 09:20] LABS: Albumin 3.3 g/dL (3.5-5.0); C Reactive Protein 7.7 mg/dL (<1.0); Calcium 9.7 mg/dL (8.4-10.2); Potassium 3.8 mmol/L (3.5-5.1)
--- NOTE | 2022-06-12 09:24 | XR ---
EXAMINATION TYPE: XR chest 1V DATE OF EXAM: 06/12/2022 COMPARISON: 06/05/2022 HISTORY: Cough TECHNIQUE: Single frontal view of the chest is obtained. FINDINGS: There is left lower lobe infiltrate and small effusion. Tiny right effusion with right per ihilar consolidation. No pneumothorax. Underlying COPD suspected. Diffuse osteopenia. Surgical clips in the history. IMPRESSION: 1. Bilateral infiltrate and pleural effusion correlate for CHF versus diffuse pneumonia.
[2022-06-12] MEDS ORDERED: LEVOFLOXACIN 500 MG TAB PO SCH (10:00)
[2022-06-12] MEDS: DOCUSATE 100 MG CAP PO SCH ×2 (10:29→23:53)
[2022-06-12] MEDS: METOPROLOL TARTRATE 50 MG TAB PO SCH ×3 (10:29→23:41)
[2022-06-12] MEDS: FINASTERIDE 5 MG TAB PO SCH (10:29)
[2022-06-12] MEDS: LEVOFLOXACIN 500 MG TAB PO SCH (10:29)
[2022-06-12] MEDS: PANTOPRAZOLE 40 MG TABLET PO SCH ×2 (10:29→23:53)
[2022-06-12] MEDS: CLOPIDOGREL 75 MG TAB PO SCH (10:29)
[2022-06-12] MEDS: allopurinoL 100 MG TAB PO SCH (10:29)
[2022-06-12] MEDS: NITROGLYCERIN OINT 1 INCH/GM PACKET TOPICAL SCH ×3 (10:30→23:41)
--- NOTE | 2022-06-12 11:43 | P.PN ---
Subjective Patient is seen for follow-up for end-stage renal disease,maintained on Thursday schedule. patient tolerated his treatment well over the weekend No significant complaints today Objective - Vital Signs Vital signs: Vital Signs Temp 98 F 06/12/22 03:50 Pulse 85 06/12/22 03:50 Resp 17 06/12/22 03:50 BP 159/96 06/12/22 03:50 Pulse Ox 96 06/12/22 03:50 FiO2 Intake & Output 06/11/22 06/12/22 06/12/22 18:59 06:59 18:59 Intake Total 476 118 236 Output Total 0 0 Balance 476 118 236 Weight 92.5 kg Intake: Oral 476 118 236 Output: Urine 0 0 Other: Voiding Method Diaper Diaper # Voids 1 # Bowel Movements 1 - Exam Patient is awake, comfortable Examination of the heart S1 and S2 Examination of the lungs bilateral breath sounds are heard Abdomen is soft nontender Examination of lower extremities shows no 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 Patient is moving all 4 extremities. - Labs CBC & Chem 7: 06/10/22 08:12 06/12/22 07:54 Labs: Abnormal Lab Results - Last 24 Hours (Table) 06/12/22 Range/Units 07:54 Carbon Dioxide 19 L (22-30) mmol/L BUN 29 H (9-20) mg/dL Creatinine 7.45 H* (0.66-1.25) mg/dL Glucose 103 H (74-99) mg/dL C-Reactive Protein 7.7 H (<1.0) mg/dL Albumin 3.3 L (3.5-5.0) g/dL Assessment and Plan Assessment: 1. End-stage renal disease maintained on hemodialysis on Thursday schedule. Patient has AV fistula. 2. Altered mental status. Possibly medication effect versus infection. Improved. 3. Chronic kidney disease mineral bone disease maintained on Renvela. Phosphorus 4.1. 4. Fever. Possible pneumonia. On antibiotics. 5. A. fib with RVR maintained on Cardizem drip. 6. Chronic diastolic CHF. 7. Anemia of chronic kidney disease. Hemoglobin 10.0 8. History of coronary artery disease. Plan: Hemodialysis today
[2022-06-12] MEDS: RIVAROXABAN 15 MG TAB PO SCH (17:21)
[2022-06-12] MEDS: MONTELUKAST 10 MG TAB PO SCH (23:41)
[2022-06-12] MEDS: LORATADINE 10 MG TAB PO SCH (23:53)
[2022-06-12] MEDS: MULTIVITAMINS, THERA 1 EACH TAB PO SCH (23:53)
[2022-06-13] MEDS: SEVELAMER 800 MG TAB PO SCH ×3 (05:47→16:01)
[2022-06-13] MEDS: FINASTERIDE 5 MG TAB PO SCH (08:32)
[2022-06-13] MEDS: PANTOPRAZOLE 40 MG TABLET PO SCH ×2 (08:32→21:06)
[2022-06-13] MEDS: allopurinoL 100 MG TAB PO SCH (08:32)
[2022-06-13] MEDS: DOCUSATE 100 MG CAP PO SCH ×2 (08:32→21:06)
[2022-06-13] MEDS: CLOPIDOGREL 75 MG TAB PO SCH (08:33)
[2022-06-13] MEDS: METOPROLOL TARTRATE 50 MG TAB PO SCH ×3 (08:33→21:06)
[2022-06-13] MEDS: NITROGLYCERIN OINT 1 INCH/GM PACKET TOPICAL SCH ×2 (08:38→16:01)
[2022-06-13 08:46] LABS: HCT 29.5 % (39.0-53.0); HGB 9.7 gm/dL (13.0-17.5); Hypochromasia Slight; MCH 30.8 pg (25.0-35.0); MCHC 32.9 g/dL (31.0-37.0); MCV 93.9 fL (80.0-100.0); Mean Platelet Volume 9.2; Platelet Count 149 k/uL (150-450); RBC 3.14 m/uL (4.30-5.90); RDW 15.6 % (11.5-15.5); WBC 6.1 k/uL (3.8-10.6)
[2022-06-13] MEDS: FLUTICASONE 110 MCG INHALER INHALATION SCH ×2 (08:56→20:12)
[2022-06-13] MEDS: ALBUTEROL HFA INHALER INHALATION PRN ×2 (08:57→20:12)
[2022-06-13 09:05] LABS: Potassium 3.1 mmol/L (3.5-5.1); Total Bilirubin 0.9 mg/dL (0.2-1.3); Total Protein 6.4 g/dL (6.3-8.2)
[2022-06-13] MEDS ORDERED: POTASSIUM CHLORIDE ER 20 MEQ TAB.ER PO STA (11:22)
--- NOTE | 2022-06-13 11:23 | P.PN ---
Subjective Patient is seen for follow-up for end-stage renal disease. He is maintained on a Thursday schedule for hemodialysis. Patient was dialyzed last night however treatment was stopped early due to A. fib with RVR with heart rate in the 140s, Decrease down into the 100 range after metoprolol. No significant complaints today. Patient is comfortable. 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 Patient is moving all 4 extremities. - Labs CBC & Chem 7: 06/13/22 08:12 06/13/22 09:28 Labs: Abnormal Lab Results - Last 24 Hours (Table) 06/12/22 06/13/22 06/13/22 Range/Units 07:54 08:12 08:12 RBC 3.14 L (4.30-5.90) m/uL Hgb 9.7 L (13.0-17.5) gm/dL Hct 29.5 L (39.0-53.0) % RDW 15.6 H (11.5-15.5) % Plt Count 149 L (150-450) k/uL Sodium 135 L (137-145) mmol/L Potassium 3.1 L (3.5-5.1) mmol/L Creatinine 4.34 H (0.66-1.25) mg/dL Albumin 3.0 L (3.5-5.0) g/dL Procalcitonin 0.71 H (0.02-0.09) ng/mL 06/13/22 Range/Units 09:28 RBC (4.30-5.90) m/uL Hgb (13.0-17.5) gm/dL Hct (39.0-53.0) % RDW (11.5-15.5) % Plt Count (150-450) k/uL Sodium 136 L (137-145) mmol/L Potassium 3.0 L (3.5-5.1) mmol/L Creatinine (0.66-1.25) mg/dL Albumin (3.5-5.0) g/dL Procalcitonin (0.02-0.09) ng/mL Assessment and Plan Assessment: 1. End-stage renal disease maintained on hemodialysis on Thursday schedule. Patient has AV fistula. 2. Altered mental status. Possibly medication effect versus infection. I mproved. 3. Chronic kidney disease mineral bone disease maintained on Renvela. Phosphorus 4.1. 4. Fever. Possible pneumonia. On antibiotics. 5. A. fib with RVR 6. Chronic diastolic CHF. 7. Anemia of chronic kidney disease. Hemoglobin 10.0 8. History of coronary artery disease. 9. Hypokalemia we will replace Plan: Replace potassium Hemodialysis in a.m. Encourage increased oral intake
--- NOTE | 2022-06-13 14:26 | FL ---
EXAMINATION TYPE: FL barium swallow w video DATE OF EXAM: 06/13/2022 COMPARISON: NONE HISTORY: Aspiration pneumonia TECHNIQUE: Fluoroscopy. FINDINGS: Fluoroscopic guidance was provided for the procedure performed in conjunction with the [facility] pathology department. Please see complete report forthcoming from the Speech Pathology departmen t. Various consistencies from thin liquid to solids were administered. Fluoroscopy time 2 minutes 41 seconds. Number of images: 0. No aspiration or penetration was evident. No significant pooling was observed in the vallecula. There was noted hesitancy with bolus formation and some slow swallowing. IMPRESSION: 1. No aspiration or penetration evident. 2. Hesitancy with swallowing.
--- NOTE | 2022-06-13 14:43 | P.PN ---
Subjective Progress Note Date: 06/13/22 HISTORY OF PRESENT ILLNESS This is a 76-year-old male patient with a previous medical history significant for hypertension and hypertensive cardiovascular disease, hyperlipidemia, end- stage renal disease on hemodialysis Thursday and Thursday, history of asthma/COPD, history of CAD post-PCI, history of ankylosing spondylitis, obstructive sleep apnea on a CPAP, CVA. Patient had CVA in June 2021 followed by a long stay at [facility] for subacute rehab. Patient was eventually discharged home and approximately January 2022 to live with his . She states that he did have 2 falls back in February but none in March and April, this month patient has had 5 falls requiring EMS to come and help her get him up. On Thursday and the morning she heard a crash and found him in the bathroom was jammed behind the door. He was able to pull himself up and denied having any pain or injury. Patient went back to bed and when he got for breakfast she heard that he had another fall but this time he had hit his head. EMS picked the patient brought him to [facility]. Patient apparently underwent a CAT scan of the head and neck which were negative. He was prepared for discharge home but he was scheduled for an EGD with Dr. Mendoza on Thursday which is done every 2 years due to Prabhakar's esophagus and it was decided the patient would stay and undergo EGD. The procedure was uneventful but patient had difficulty waking from anesthesia following. He ended up staying another day and was discharged home yesterday. Patient was apparently in his normal state of health and awake and alert when he came home was not having any issues at all. They had dinner together he watch some TV and went to bed around 10 PM. He was started on a new medication, Seroquel 12.5 mg at bedtime which she gave to him before bed. When patient woke up he was having significant cough around 5:45 in the morning. He was able go back to sleep until about 8 AM but she noticed a significant change in his mental status. His last hemodialysis was yesterday and usual schedule is Thursday. Patient was found have a temperature 100.3, heart rate documented at 120 [address] jonatan also at 150 with A. fib with RVR and was given metoprolol 5 mg IV push with improvement down to 110s to 120s for heart rate. Blood pressure initially 143/100, pulse ox 100% on 4 L nasal cannula. WBC 11.4, hemoglobin 10.4, platelet count 201. INR 1.4. Sodium 130, potassium 4.7, chloride 96, CO2 25, BUN 28 creatinine was 5.49. Blood sugar 166. Lactic acid 2.5. Magnesium 1.7. Total bilirubin 1.3, AST 19, ALT 12, alkaline phosphatase 94. Troponin 0.031. ProBNP 30,400. Albumin 3.7. Urinalysis was clear with nitrate and leukoesterase negative. Coronavirus PCR, influenza A, influenza B all were not detected. Lay catheter was placed as a urinalysis was required in the emergency center. Chest x-ray correlate for heart failure consider diffuse interstitial and alveolar pneumonia. Patient was started on cefepime, DuoNeb treatments, consults with pulmonary medicine and nephrology. 06/05: Patient is seen today on the [facility] floor, he continues to have significant mental status changes and not improved from yesterday. CAT scan of the brain without contrast ordered but was nondiagnostic. Patient has been seen by nephrology and undergoing hemodialysis today. Due to confusion and inability to concentrate, one dose of IV Ativan ordered. Patient has been seen by pulmonary medicine and cefepime transitioned to IV Zosyn. monitoring tech remains atrial fibrillation with controlled rate. Last evening, Cardizem drip was started at 5 mg per hour as heart rate was in the 180s and pulse ox dropped down to 86% and 2 L nasal cannula was applied. Today, patient is unable to take any of his oral medications due to his mental status. His temperature max has been 102.3, heart rate now at 87, blood pressure 142/87, pulse ox 93% on room air. Consult added for cardiology although heart rate is controlled at this time. Patient is continued on Cardizem drip due to inability to take oral medications. 06/06: Patient is found sleeping in his bed this morning. He does wake up opens his eyes and answering questions with one-word answers. He is able to drink water without any signs of coughing or choking. He does have a speech therapy evaluation scheduled for today. Patient is continued on IV Zosyn and IV vancomycin. Blood work from yesterday revealed WBC of 15.4, hemoglobin 10.1 and platelet count 165. Sodium 138, potassium 5.3, chloride 100, CO2 23, BUN 42 and creatinine 7.05. Blood sugar 125. Ammonia level less than 9. Pro-calcitonin 0.47. Total bilirubin 1.5, AST 33, ALT 11, alkaline phosphatase 71. Consult was added yesterday for neurology due to concern for ongoing mental status changes and patient not improving after starting antibiotics. Patient was seen by Dr. Beck for suspected encephalopathy, EEG and repeat CAT scan have been ordered and anesthesia for CSF study. Patient's last dose of Xarelto would have been on 06/03. Neurologys added in infectious disease as well. Patient is scheduled for hemodialysis tomorrow. Dr. Campuzano is recommending continuing vancomycin and Zosyn while waiting for cultures finalized.blood cultures are sh owing no growth after 24 hours 1 specimen. Cardiology consult was added yesterday for A. fib with RVR. Patient remains on Cardizem drip. He has not been started on oral medications as of yet and waiting for speech therapy evaluation but expect that patient will be started on orals today. 06/07: Patient is sitting up in bed more awake he is eating pureed diet and drink water without issues, has been on Zosyn 3.375 grIVPB Q 8 h for possible gram negative pneumonia, likely due to aspiration, we will continue with monitoring and he will likely be going back to [facility] next week, we will keep on IV heparin, no need for LP at this point 06/08: Patient is laying down in bed in no apparent distress, he is feeling a lot better today, I spoke with his and given updated about his current con dition, he'll likely require to go to subacute rehabilitation she elected to go to [facility] at this time, continue current treatment plan, patient is to resume his medication he is currently off heparin drip, his back on Xarelto, patient back on Plavix 75 mg once every day CAD and stroke prevention as well, we'll continue to monitor the patient very closely. 06/09: Patient remains in atrial fibrillation with controlled rate. He is back on his oral medications and continued on IV Zosyn. Next hemodialysis is scheduled for Thursday on his normal schedule of Thursday. Repeat creatinine 6.55. EEG was abnormal suggestive moderate encephalopathy. No epileptiform discharge. Patient is found sitting up in a chair at the bedside, legs are elevated. Patient appears to be comfortable. He recalls that Lay catheter was removed yesterday. His mental status is improving. Patient has been afebrile, earlier today heart rate in the 90s to low 100s. Blood pressure 150/81, pulse ox 95% on room air. Cardiology increased frequency of metoprolol to 50 mg 3 times daily. Anticipate probable discharge to [facility] tomorrow. 06/10: Patient remains afebrile, heart rate 80s and 90s, blood pressure 158/81, pulse ox 96% on room air. Repeat blood work reveals WBC 12.5, hemoglobin 9.9, platelet count 178. Sodium 140, potassium 4.0, chloride 101, CO2 22, BUN 37 creatinine 7.7. Blood sugar 121. Calcium 9.6. Total bilirubin 1.2, AST 17, ALT 13, alkaline phosphatase 66. Patient is found today sitting up in a recliner, he appears comfortable, he is awake and alert. He is scheduled for hemodialysis today. Plan was to transition IV antibiotics to oral and discharged to [facility] today once dialysis is completed. However, Covid 19 testing came back positive and discharge was held as [facility] would not accept the patient. 06/11: Patient remains afebrile, heart rate 96, blood pressure 148/75, pulse ox 95% on room air. Patient is more groggy today from yesterday. Social work is following for discharge plan on 06/20 due to positive Covid testing. alf was unable to accept patient due to staffing issues. Patient will be transferred to [facility] floor without telemetry. 06/12: Patient remains afebrile, heart rate 85, blood pressure 159/96, pulse ox 96% on room air. Patient is denying any new complaints. He awakens to verbal stimuli. He is waiting for a bed on the [facility] floor. We will transition Zosyn to oral Levaquin to complete course which will be done before he is able to be discharged to [facility]. Patient is due for hemodialysis today. 06/13: Yesterday, patient was reassessed by speech therapy, found to have frequent coughing with thin liquids and etc. He was made nothing by mouth. Modified barium swallow was completed today with recommendations for chopped diet with one-to-one supervision, upright positioning for all oral intake and encourage patient to feed himself. Chest x-ray ordered yesterday morning revealed bilateral infiltrate and pleural effusion correlate for heart failure versus diffuse pneumonia. Hemodialysis late in the day which needed to be stopped early due to elevated heart rate. Heart rate improved after his dose of scheduled Lopressor. Patient is scheduled for hemodialysis tomorrow. Repeat blood work reveals WBC 6.1, hemoglobin 9.7, platelet count 149. Sodium 135, potassium 3.1 and replacement has been ordered by nephrology, chloride 98, CO2 26, BUN 14 and creatinine 4.3. Liver function tests were normal. REVIEW OF SYSTEMS Constitutional: No fever, no chills, no night sweats. No weight change. Reported weakness, reported fatigue reported lethargy. Noted daytime sleepiness. HEENT: No headache. No blurred vision or double vision, no loss of vision. No loss of Hearing, no ringing in the ears, no dizziness. No nasal drainage or congestion. No epistaxis. No sore throat. Lungs: No shortness of breath, noted cough, minimal sputum production. No wheezing. Cardiovascular: No chest pain, no lower extremity edema. No palpitations. No paroxysmal nocturnal dyspnea. No orthopnea. No lightheadedness or dizziness. No syncopal episodes. Abdominal: No abdominal pain. No nausea, vomiting. No diarrhea. No constipation. No bloody or tarry stools.. No loss of appetite. Genitourinary: No dysuria, increased frequency, urgency. No urinary retention. Patient makes very little urine. Musculoskeletal: No myalgias. No muscle weakness, no gait dysfunction, no frequent falls. No back pain. No neck pain. Integumentary: No wounds, no lesions. No rash or pruritus. No unusual bruising. No change in hair or nails. Neurologic: Reported aphasia. No facial droop. Noted change in mentation. No head injury. No headache. No paralysis. No paresthesia. Psychiatric: No depression. No anxiety. No mood swings. Endocrine: No abnormal blood sugars. No weight change. No excessive sweating or thirst. No cold intolerance. PHYSICAL EXAMINATION Gen: This is a 75-year-old obese male. He is resting in a recliner and appears to be in no acute distress HEENT: Head is atraumatic, normocephalic. Pupils equal, round. Sclerae is anicteric, mucous membranes of the mouth are somewhat dry. NECK: Supple. No JVD. No lymphadenopathy. No thyromegaly. LUNGS: Decreased breath sounds at the bases. No crackles, no wheezes. No intercostal retractions, positive for ronchi to the left lower third. HEART: First heart sound is depressed, second heart sound is normal, there is systolic ejection murmur 2/6 located in the left sternal border. ABDOMEN: Soft. Bowel sounds are present. No masses. No tenderness. Lay catheter in place with small amount of urine output. EXTREMITIES: No pedal edema. No calf tenderness. Dorsalis pedis +1 bila terally. NEUROLOGICAL: Patient awake, opens eyes to verbal stimuli but quickly falls back to sleep, able to answer questions and follow a few simple commands. ASSESSMENT AND PLAN 1. Metabolic encephalopathy secondary to aspiration pneumonia. Continue antibiotics. Lumbar puncture was canceled. 2. Acute hypoxic respiratory failure secondary to A. fib with RVR and aspiration pneumonia. continue Metoprolol 50 mg po tid, continue antibiotics transition to oral Levaquin, continue Xarelto 15 mg orally daily 3. Aspiration pneumonia and sepsis. Continue with Levaquin, DuoNeb treatments every 4 hours as needed, consult with pulmonary medicine appreciated. 4. Lactic acidosis secondary to pneumonia. Continue treatment as a #2. 5. Atrial fibrillation with RVR, paroxysmal atrial fibrillation, status post IV Lopressor. continue with Metoprolol 50 mg po tid, continue Xarelto 15 mg once every day. 6. Acute on chronic diastolic heart failure. we will continue with Metoprolol 50 mg orally tid, continue hemodialysis. 6. History of CVA. we will resume Atorvastatin 10 mg po daily, resume clopidogrel 75 mg once every day. 7. End-stage renal disease on hemodialysis. Consult with nephrology appreciated. Patient scheduled for hemodialysis today. 8. Hypertension, hypertensive cardiovascular disease. Continue patient on Metoprolol 50 mg po increased frequency to tid. 9. Hyperlipidemia. Continue atorvastatin 10 mg po daily. 10. History of coronary artery disease status post PCI. Continue patient on Imdur 30 mg daily, Lipitor, continue Lopressor 50 mg orally tid and clopidogrel 75 mg once every day. 11. Moderate intermittent asthma, stable. Continue Pulmicort 0.5 mg twice daily, Mucinex 1200 mg oral every 12 hours as needed for cough, DuoNeb treatments. 12. Benign prostatic hypertrophy. Stable. 13. Gastroesophageal reflux disease. Continue PPI. 14. DVT prophylaxis. we will continue with Xarelto 15 mg orally daily. 15. Testing positive for COVID19. 16. Full code. 17. PT evaluation. DISCHARGE PLAN Subacute rehab at [facility] on 06/20. Impression and plan of care have been directed as dictated by the signing phys [email or web address]. Missy Manzano nurse practitioner acting as scribe for signing physician. Objective - Vital Signs Vital signs: Vital Signs Temp 97.8 F 06/13/22 07:57 Pulse 95 06/13/22 07:57 Resp 21 06/13/22 07:57 BP 154/76 06/13/22 07:57 Pulse Ox 93 L 06/13/22 07:57 FiO2 Intake & Output 06/12/22 06/13/22 06/13/22 18:59 06:59 18:59 Intake Total 236 Balance 236 Weight 91.5 kg Intake: Oral 236 Other: Voiding Method Diaper Diaper # Voids 1 1 # Bowel Movements 1 1 - Labs CBC & Chem 7: 06/13/22 08:12 06/13/22 09:28 Labs: Abnormal Lab Results - Last 24 Hours (Table) 06/12/22 06/13/22 06/13/22 Range/Units 07:54 08:12 08:12 RBC 3.14 L (4.30-5.90) m/uL Hgb 9.7 L (13.0-17.5) gm/dL Hct 29.5 L (39.0-53.0) % RDW 15.6 H (11.5-15.5) % Plt Count 149 L (150-450) k/uL Sodium 135 L (137-145) mmol/L Potassium 3.1 L (3.5-5.1) mmol/L Creatinine 4.34 H (0.66-1.25) mg/dL Albumin 3.0 L (3.5-5.0) g/dL Procalcitonin 0.71 H (0.02-0.09) ng/mL
[2022-06-13] MEDS: RIVAROXABAN 15 MG TAB PO SCH (16:01)
[2022-06-13] MEDS: ATORVASTATIN 10 MG TAB PO SCH (16:01)
[2022-06-13] MEDS: LORATADINE 10 MG TAB PO SCH (21:06)
[2022-06-13] MEDS: MULTIVITAMINS, THERA 1 EACH TAB PO SCH (21:06)
[2022-06-13] MEDS: MONTELUKAST 10 MG TAB PO SCH (21:06)
[2022-06-14] MEDS: NITROGLYCERIN OINT 1 INCH/GM PACKET TOPICAL SCH ×3 (01:03→15:28)
[2022-06-14] MEDS: SEVELAMER 800 MG TAB PO SCH ×2 (06:48→16:29)
[2022-06-14] MEDS: ALBUTEROL HFA INHALER INHALATION PRN ×3 (08:33→20:35)
[2022-06-14] MEDS: FLUTICASONE 110 MCG INHALER INHALATION SCH ×2 (08:34→20:35)
[2022-06-14] MEDS: DOCUSATE 100 MG CAP PO SCH ×2 (08:59→20:36)
[2022-06-14] MEDS: allopurinoL 100 MG TAB PO SCH (09:10)
[2022-06-14] MEDS: LEVOFLOXACIN 500 MG TAB PO SCH (09:10)
[2022-06-14] MEDS: FINASTERIDE 5 MG TAB PO SCH (09:11)
[2022-06-14] MEDS: METOPROLOL TARTRATE 50 MG TAB PO SCH ×3 (09:11→20:36)
[2022-06-14] MEDS: PANTOPRAZOLE 40 MG TABLET PO SCH ×2 (09:11→20:36)
[2022-06-14] MEDS: CLOPIDOGREL 75 MG TAB PO SCH (09:11)
--- NOTE | 2022-06-14 13:04 | P.PN ---
Subjective Progress Note Date: 06/14/22 HISTORY OF PRESENT ILLNESS This is a 76-year-old male patient with a previous medical history significant for hypertension and hypertensive cardiovascular disease, hyperlipidemia, end- stage renal disease on hemodialysis Thursday and Thursday, history of asthma/COPD, history of CAD post-PCI, history of ankylosing spondylitis, obstructive sleep apnea on a CPAP, CVA. Patient had CVA in June 2021 followed by a long stay at [facility] for subacute rehab. Patient was eventually discharged home and approximately January 2022 to live with his . She states that he did have 2 falls back in February but none in March and April, this month patient has had 5 falls requiring EMS to come and help her get him up. On Thursday and the morning she heard a crash and found him in the bathroom was jammed behind the door. He was able to pull himself up and denied having any pain or injury. Patient went back to bed and when he got for breakfast she heard that he had another fall but this time he had hit his head. EMS picked the patient brought him to [facility]. Patient apparently underwent a CAT scan of the head and neck which were negative. He was prepared for discharge home but he was scheduled for an EGD with Dr. Mendoza on Thursday which is done every 2 years due to Prabhakar's esophagus and it was decided the patient would stay and undergo EGD. The procedure was uneventful but patient had difficulty waking from anesthesia following. He ended up staying another day and was discharged home yesterday. Patient was apparently in his normal state of health and awake and alert when he came home was not having any issues at all. They had dinner together he watch some TV and went to bed around 10 PM. He was started on a new medication, Seroquel 12.5 mg at bedtime which she gave to him before bed. When patient woke up he was having significant cough around 5:45 in the morning. He was able go back to sleep until about 8 AM but she noticed a significant change in his mental status. His last hemodialysis was yesterday and usual schedule is Thursday. Patient was found have a temperature 100.3, heart rate documented at 120 [address] jonatan also at 150 with A. fib with RVR and was given metoprolol 5 mg IV push with improvement down to 110s to 120s for heart rate. Blood pressure initially 143/100, pulse ox 100% on 4 L nasal cannula. WBC 11.4, hemoglobin 10.4, platelet count 201. INR 1.4. Sodium 130, potassium 4.7, chloride 96, CO2 25, BUN 28 creatinine was 5.49. Blood sugar 166. Lactic acid 2.5. Magnesium 1.7. Total bilirubin 1.3, AST 19, ALT 12, alkaline phosphatase 94. Troponin 0.031. ProBNP 30,400. Albumin 3.7. Urinalysis was clear with nitrate and leukoesterase negative. Coronavirus PCR, influenza A, influenza B all were not detected. Lay catheter was placed as a urinalysis was required in the emergency center. Chest x-ray correlate for heart failure consider diffuse interstitial and alveolar pneumonia. Patient was started on cefepime, DuoNeb treatments, consults with pulmonary medicine and nephrology. 06/05: Patient is seen today on the [facility] floor, he continues to have significant mental status changes and not improved from yesterday. CAT scan of the brain without contrast ordered but was nondiagnostic. Patient has been seen by nephrology and undergoing hemodialysis today. Due to confusion and inability to concentrate, one dose of IV Ativan ordered. Patient has been seen by pulmonary medicine and cefepime transitioned to IV Zosyn. monitoring engineer remains atrial fibrillation with controlled rate. Last evening, Cardizem drip was started at 5 mg per hour as heart rate was in the 180s and pulse ox dropped down to 86% and 2 L nasal cannula was applied. Today, patient is unable to take any of his oral medications due to his mental status. His temperature max has been 102.3, heart rate now at 87, blood pressure 142/87, pulse ox 93% on room air. Consult added for cardiology although heart rate is controlled at this time. Patient is continued on Cardizem drip due to inability to take oral medications. 06/06: Patient is found sleeping in his bed this morning. He does wake up opens his eyes and answering questions with one-word answers. He is able to drink water without any signs of coughing or choking. He does have a speech therapy evaluation scheduled for today. Patient is continued on IV Zosyn and IV vancomycin. Blood work from yesterday revealed WBC of 15.4, hemoglobin 10.1 and platelet count 165. Sodium 138, potassium 5.3, chloride 100, CO2 23, BUN 42 and creatinine 7.05. Blood sugar 125. Ammonia level less than 9. Pro-calcitonin 0.47. Total bilirubin 1.5, AST 33, ALT 11, alkaline phosphatase 71. Consult was added yesterday for neurology due to concern for ongoing mental status changes and patient not improving after starting antibiotics. Patient was seen by Dr. Beck for suspected encephalopathy, EEG and repeat CAT scan have been ordered and anesthesia for CSF study. Patient's last dose of Xarelto would have been on 06/03. Neurologys added in infectious disease as well. Patient is scheduled for hemodialysis tomorrow. Dr. Campuzano is recommending continuing vancomycin and Zosyn while waiting for cultures finalized.blood cultures are sh owing no growth after 24 hours 1 specimen. Cardiology consult was added yesterday for A. fib with RVR. Patient remains on Cardizem drip. He has not been started on oral medications as of yet and waiting for speech therapy evaluation but expect that patient will be started on orals today. 06/07: Patient is sitting up in bed more awake he is eating pureed diet and drink water without issues, has been on Zosyn 3.375 grIVPB Q 8 h for possible gram negative pneumonia, likely due to aspiration, we will continue with monitoring and he will likely be going back to [facility] next week, we will keep on IV heparin, no need for LP at this point 06/08: Patient is laying down in bed in no apparent distress, he is feeling a lot better today, I spoke with his and given updated about his current con dition, he'll likely require to go to subacute rehabilitation she elected to go to [facility] at this time, continue current treatment plan, patient is to resume his medication he is currently off heparin drip, his back on Xarelto, patient back on Plavix 75 mg once every day CAD and stroke prevention as well, we'll continue to monitor the patient very closely. 06/09: Patient remains in atrial fibrillation with controlled rate. He is back on his oral medications and continued on IV Zosyn. Next hemodialysis is scheduled for Thursday on his normal schedule of Thursday. Repeat creatinine 6.55. EEG was abnormal suggestive moderate encephalopathy. No epileptiform discharge. Patient is found sitting up in a chair at the bedside, legs are elevated. Patient appears to be comfortable. He recalls that Lay catheter was removed yesterday. His mental status is improving. Patient has been afebrile, earlier today heart rate in the 90s to low 100s. Blood pressure 150/81, pulse ox 95% on room air. Cardiology increased frequency of metoprolol to 50 mg 3 times daily. Anticipate probable discharge to [facility] tomorrow. 06/10: Patient remains afebrile, heart rate 80s and 90s, blood pressure 158/81, pulse ox 96% on room air. Repeat blood work reveals WBC 12.5, hemoglobin 9.9, platelet count 178. Sodium 140, potassium 4.0, chloride 101, CO2 22, BUN 37 creatinine 7.7. Blood sugar 121. Calcium 9.6. Total bilirubin 1.2, AST 17, ALT 13, alkaline phosphatase 66. Patient is found today sitting up in a recliner, he appears comfortable, he is awake and alert. He is scheduled for hemodialysis today. Plan was to transition IV antibiotics to oral and discharged to [facility] today once dialysis is completed. However, Covid 19 testing came back positive and discharge was held as [facility] would not accept the patient. 06/11: Patient remains afebrile, heart rate 96, blood pressure 148/75, pulse ox 95% on room air. Patient is more groggy today from yesterday. Social work is following for discharge plan on 06/20 due to positive Covid testing. long term was unable to accept patient due to staffing issues. Patient will be transferred to [facility] floor without telemetry. 06/12: Patient remains afebrile, heart rate 85, blood pressure 159/96, pulse ox 96% on room air. Patient is denying any new complaints. He awakens to verbal stimuli. He is waiting for a bed on the [facility] floor. We will transition Zosyn to oral Levaquin to complete course which will be done before he is able to be discharged to [facility]. Patient is due for hemodialysis today. 06/13: Yesterday, patient was reassessed by speech therapy, found to have frequent coughing with thin liquids and etc. He was made nothing by mouth. Modified barium swallow was completed today with recommendations for chopped diet with one-to-one supervision, upright positioning for all oral intake and encourage patient to feed himself. Chest x-ray ordered yesterday morning revealed bilateral infiltrate and pleural effusion correlate for heart failure versus diffuse pneumonia. Hemodialysis late in the day which needed to be stopped early due to elevated heart rate. Heart rate improved after his dose of scheduled Lopressor. Patient is scheduled for hemodialysis tomorrow. Repeat blood work reveals WBC 6.1, hemoglobin 9.7, platelet count 149. Sodium 135, potassium 3.1 and replacement has been ordered by nephrology, chloride 98, CO2 26, BUN 14 and creatinine 4.3. Liver function tests were normal. 06/14: patient will benefit from chopped diet, not pureed diet at this point with supervision, since he is no going to eat pureed, appears generally weak and he is getting dialysis , we will continue with current treatment plan, await the transfer to [facility] sometimes next week REVIEW OF SYSTEMS Constitutional: No fever, no chills, no night sweats. No weight change. Repo rted weakness, reported fatigue reported lethargy. Noted daytime sleepiness. HEENT: No headache. No blurred vision or double vision, no loss of vision. No loss of Hearing, no ringing in the ears, no dizziness. No nasal drainage or congestion. No epistaxis. No sore throat. Lungs: No shortness of breath, noted cough, minimal sputum production. No wheezing. Cardiovascular: No chest pain, no lower extremity edema. No palpitations. No paroxysmal nocturnal dyspnea. No orthopnea. No lightheadedness or dizziness. No syncopal episodes. Abdominal: No abdominal pain. No nausea, vomiting. No diarrhea. No constipation. No bloody or tarry stools.. No loss of appetite. Genitourinary: No dysuria, increased frequency, urgency. No urinary retention. Patient makes very little urine. Musculoskeletal: No myalgias. No muscle weakness, no gait dysfunction, no frequent falls. No back pain. No neck pain. Integumentary: No wounds, no lesions. No rash or pruritus. No unusual bruising. No change in hair or nails. Neurologic: Reported aphasia. No facial droop. Noted change in mentation. No head injury. No headache. No paralysis. No paresthesia. Psychiatric: No depression. No anxiety. No mood swings. Endocrine: No abnormal blood sugars. No weight change. No excessive sweating or thirst. No cold intolerance. PHYSICAL EXAMINATION Gen: This is a 75-year-old obese male. He is resting in a recliner and appears to be in no acute distress HEENT: Head is atraumatic, normocephalic. Pupils equal, round. Sclerae is anicteric, mucous membranes of the mouth are somewhat dry. NECK: Supple. No JVD. No lymphadenopathy. No thyromegaly. LUNGS: Decreased breath sounds at the bases. No crackles, no wheezes. No intercostal retractions, positive for ronchi to the left lower third. HEART: First heart sound is depressed, second heart sound is normal, there is systolic ejection murmur 2/6 located in the left sternal border. ABDOMEN: Soft. Bowel sounds are present. No masses. No tenderness. Lay catheter in place with small amount of urine output. EXTREMITIES: No pedal edema. No calf tenderness. Dorsalis pedis +1 bilaterally. NEUROLOGICAL: Patient awake, opens eyes to verbal stimuli but quickly falls back to sleep, able to answer questions and follow a few simple commands. ASSESSMENT AND PLAN 1. Metabolic encephalopathy secondary to aspiration pneumonia. Continue antibiotics. Lumbar puncture was canceled. 2. Acute hypoxic respiratory failure secondary to A. fib with RVR and aspiration pneumonia. continue Metoprolol 50 mg po tid, continue antibiotics transition to oral Levaquin, continue Xarelto 15 mg orally daily 3. Aspiration pneumonia and sepsis. Continue with Levaquin, DuoNeb treatments every 4 hours as needed, consult with pulmonary medicine appreciated. 4. Lactic acidosis secondary to pneumonia. Continue treatment as a #2. 5. Atrial fibrillation with RVR, paroxysmal atrial fibrillation, status post IV Lopressor. continue with Metoprolol 50 mg po tid, continue Xarelto 15 mg once every day. 6. Acute on chronic diastolic heart failure. we will continue with Metoprolol 50 mg orally tid, continue hemodialysis. 6. History of CVA. we will resume Atorvastatin 10 mg po daily, resume clopidogrel 75 mg once every day. 7. End-stage renal disease on hemodialysis. Consult with nephrology appreciated. Patient scheduled for hemodialysis today. 8. Hypertension, hypertensive cardiovascular disease. Continue patient on Metoprolol 50 mg po increased frequency to tid. 9. Hyperlipidemia. Continue atorvastatin 10 mg po daily. 10. History of coronary artery disease status post PCI. Continue patient on Imdur 30 mg daily, Lipitor, continue Lopressor 50 mg orally tid and clopidogrel 75 mg once every day. 11. Moderate intermittent asthma, stable. Continue Pulmicort 0.5 mg twice daily, Mucinex 1200 mg oral every 12 hours as needed for cough, DuoNeb treatments. 12. Benign prostatic hypertrophy. Stable. 13. Gastroesophageal reflux disease. Continue PPI. 14. DVT prophylaxis. we will continue with Xarelto 15 mg orally daily. 15. Testing positive for COVID19. 16. Full code. 17. PT evaluation. DISCHARGE PLAN Subacute rehab at [facility] on 06/20. Objective - Vital Signs Vital signs: Vital Signs Temp 97.9 F 06/14/22 09:01 Pulse 92 06/14/22 11:04 Resp 20 06/14/22 11:04 BP 154/60 06/14/22 12:58 Pulse Ox 94 L 06/14/22 09:01 FiO2 Intake & Output 06/13/22 06/14/22 06/14/22 18:59 06:59 18:59 Output Total 100 700 Balance -100 -700 Output: Urine 100 Hemodialysis 700 Other: Voiding Method Diaper Urinal Diaper - Labs CBC & Chem 7: 06/13/22 08:12 06/13/22 09:28
--- NOTE | 2022-06-14 13:47 | P.PN ---
Subjective Progress Note Date: 06/12/22 Principal diagnosis: Fever and possible pneumonia Patient is a 76-year-old male with a past medical history significant for end-stage renal disease on hemodialysis presented to the hospital mental status changes, patient did have fever and elevated white count and concern for pneumonia and questionable aspiration etiology on today's evaluation that is 06/12/2022, the patient is afebrile, the patient is breathing comfortably on room air, the patient slightly more awake and alert today and denies any chest pain and no congestion cough but no sputum no abdominal pain no diarrhea Objective - Vital Signs Vital signs: Vital Signs Temp 97.2 F L 06/12/22 12:00 Pulse 89 06/12/22 12:00 Resp 16 06/12/22 12:00 BP 137/75 06/12/22 12:00 Pulse Ox 95 06/12/22 12:00 FiO2 Intake & Output 06/11/22 06/12/22 06/12/22 18:59 06:59 18:59 Intake Total 476 118 236 Output Total 0 0 Balance 476 118 236 Weight 92.5 kg Intake: Oral 476 118 236 Output: Urine 0 0 Other: Voiding Method Diaper Diaper Diaper # Voids 1 1 # Bowel Movements 1 1 - Exam GENERAL DESCRIPTION: An elderly male lying in bed in no distress RESPIRATORY SYSTEM: Unlabored breathing , decreased breath sounds at bases HEART: S1 S2 regular rate and rhythm , ABDOMEN: Soft , no tenderness EXTREMITIES: No edema feet - Labs CBC & Chem 7: 06/13/22 08:12 06/13/22 09:28 Labs: Abnormal Lab Results - Last 24 Hours (Table) 06/12/22 Range/Units 07:54 Carbon Dioxide 19 L (22-30) mmol/L BUN 29 H (9-20) mg/dL Creatinine 7.45 H* (0.66-1.25) mg/dL Glucose 103 H (74-99) mg/dL C-Reactive Protein 7.7 H (<1.0) mg/dL Albumin 3.3 L (3.5-5.0) g/dL Assessment and Plan (1) Aspiration pneumonia Current Visit: Yes Status: Acute Code(s): J69.0 - PNEUMONITIS DUE TO INHALATION OF FOOD AND VOMIT SNOMED Code(s): 210451115 (2) Febrile illness, acute Current Visit: Yes Status: Acute Code(s): R50.9 - FEVER, UNSPECIFIED SNOMED Code(s): 067719884 Plan: 1patient presented to hospital with sepsis and respiratory have fever elevated white count with evidence of increasing infiltrate on the left side chest x-ray with concern for possible aspiration pneumonia likely from enteric gram-negative pathogen and less likely gram-positive however the patient did have significant mental status changes and underlying encephalitis less likely 2- patient fever has resolved and culture had been negative , patient Zosyn has been discontinued by admitting team currently on Levaquin Time with Patient: Less than 30
--- NOTE | 2022-06-14 13:48 | P.PN ---
Subjective Progress Note Date: 06/13/22 Principal diagnosis: Fever and possible pneumonia Patient is a 76-year-old male with a past medical history significant for end-stage renal disease on hemodialysis presented to the hospital mental status changes, patient did have fever and elevated white count and concern for pneumonia and questionable aspiration etiology on today's evaluation that is 06/13/2022, the patient remains to be afebrile, the patient is breathing comfortably on room air, the patient denies any chest pain and no congestion cough but no sputum no abdominal pain no diarrhea Objective - Vital Signs Vital signs: Vital Signs Temp 97.6 F 06/13/22 20:00 Pulse 95 06/13/22 20:00 Resp 20 06/13/22 20:00 BP 144/77 06/13/22 20:00 Pulse Ox 97 06/13/22 20:00 FiO2 Intake & Output 06/13/22 06/13/22 06/14/22 06:59 18:59 06:59 Output Total 0 Balance 0 Weight 91.5 kg Output: Urine 0 Other: Voiding Method Diaper Diaper # Voids 1 # Bowel Movements 1 - Exam GENERAL DESCRIPTION: An elderly male lying in bed in no distress RESPIRATORY SYSTEM: Unlabored breathing , decreased breath sounds at bases HEART: S1 S2 regular rate and rhythm , ABDOMEN: Soft , no tenderness EXTREMITIES: No edema feet - Labs CBC & Chem 7: 06/13/22 08:12 06/13/22 09:28 Labs: Abnormal Lab Results - Last 24 Hours (Table) 06/13/22 06/13/22 06/13/22 Range/Units 08:12 08:12 09:28 RBC 3.14 L (4.30-5.90) m/uL Hgb 9.7 L (13.0-17.5) gm/dL Hct 29.5 L (39.0-53.0) % RDW 15.6 H (11.5-15.5) % Plt Count 149 L (150-450) k/uL Sodium 135 L 136 L (137-145) mmol/L Potassium 3.1 L 3.0 L (3.5-5.1) mmol/L Creatinine 4.34 H (0.66-1.25) mg/dL Albumin 3.0 L (3.5-5.0) g/dL Assessment and Plan (1) Aspiration pneumonia Current Visit: Yes Status: Acute Code(s): J69.0 - PNEUMONITIS DUE TO INHALATION OF FOOD AND VOMIT SNOMED Code(s): 003681217 (2) Febrile illness, acute Current Visit: Yes Status: Acute Code(s): R50.9 - FEVER, UNSPECIFIED SNOMED Code(s): 604656290 Plan: 1patient presented to hospital with sepsis and respiratory have fever elevated white count with evidence of increasing infiltrate on the left side chest x-ray with concern for possible aspiration pneumonia likely from enteric gram-negative pathogen and less likely gram-positive however the patient did have significant mental status changes and underlying encephalitis less likely 2- patient fever has resolved and culture had been negative so far swallow test did not show any evidence of aspiration patient is currently on oral Levaquin Time with Patient: Less than 30
--- NOTE | 2022-06-14 13:49 | P.PN ---
Subjective Progress Note Date: 06/14/22 Principal diagnosis: Fever and possible pneumonia Patient is a 76-year-old male with a past medical history significant for end-stage renal disease on hemodialysis presented to the hospital mental status changes, patient did have fever and elevated white count and concern for pneumonia and questionable aspiration etiology on today's evaluation that is 06/14/2022, the patient continues to be afebrile, the patient is breathing comfortably on room air, the patient denies having any chest pain or shortness of any did have a cough but not bringing up any sputum no abdominal pain and no diarrhea Objective - Vital Signs Vital signs: Vital Signs Temp 97.9 F 06/14/22 09:01 Pulse 92 06/14/22 11:04 Resp 20 06/14/22 11:04 BP 139/63 06/14/22 11:04 Pulse Ox 94 L 06/14/22 09:01 FiO2 Intake & Output 06/13/22 06/14/22 06/14/22 18:59 06:59 18:59 Output Total 100 Balance -100 Output: Urine 100 Other: Voiding Method Diaper Urinal Diaper - Exam GENERAL DESCRIPTION: An elderly male lying in bed in no distress RESPIRATORY SYSTEM: Unlabored breathing , decreased breath sounds at bases HEART: S1 S2 regular rate and rhythm , ABDOMEN: Soft , no tenderness EXTREMITIES: No edema feet - Labs CBC & Chem 7: 06/13/22 08:12 06/13/22 09:28 Assessment and Plan (1) Aspiration pneumonia Current Visit: Yes Status: Acute Code(s): J69.0 - PNEUMONITIS DUE TO IN HALATION OF FOOD AND VOMIT SNOMED Code(s): 285138879 (2) Febrile illness, acute Current Visit: Yes Status: Acute Code(s): R50.9 - FEVER, UNSPECIFIED SNOMED Code(s): 438467455 Plan: 1patient presented to hospital with sepsis and respiratory have fever elevated white count with evidence of increasing infiltrate on the left side chest x-ray with concern for possible aspiration pneumonia likely from enteric gram-negative pathogen and less likely gram-positive however the patient did have significant mental status changes and underlying encephalitis less likely 2- patient fever has resolved and culture had been negative so far swallow test did not show any evidence of aspiration, did show hesitancy with swallowing, patient Zosyn discontinued on 06/12/2022 by admitting team patient to continue Levaquin and monitor clinical course closely Time with Patient: Less than 30
--- NOTE | 2022-06-14 13:57 | P.PN ---
Subjective Progress Note Date: 06/14/22 Follow-up for ESRD. Seen during dialysis, tolerating well. Objective - Vital Signs Vital signs: Vital Signs Temp 97.9 F 06/14/22 09:01 Pulse 92 06/14/22 11:04 Resp 20 06/14/22 11:04 BP 154/60 06/14/22 12:58 Pulse Ox 94 L 06/14/22 09:01 FiO2 Intake & Output 06/13/22 06/14/22 06/14/22 18:59 06:59 18:59 Output Total 100 700 Balance -100 -700 Output: Urine 100 Hemodialysis 700 Other: Voiding Method Diaper Urinal Diaper - Exam No acute distress S1-S2 heard Lungs clear Edema - Labs CBC & Chem 7: 06/13/22 08:12 06/13/22 09:28 Assessment and Plan Assessment: #1 ESRD on hemodialysis TTS schedule via left upper arm aVF #2 altered mental status resolved. #3 A. fib with RVR #4 chronic diastolic CHF #5 anemia with chronic kidney disease #6 hypertension with chronic kidney disease #7 metabolic bone disease Plan: #1 hemodialysis today as per outpatient schedule #2 ESRD medications
[2022-06-14] MEDS: RIVAROXABAN 15 MG TAB PO SCH (16:29)
[2022-06-14] MEDS: MONTELUKAST 10 MG TAB PO SCH (20:36)
[2022-06-14] MEDS: MULTIVITAMINS, THERA 1 EACH TAB PO SCH (20:36)
[2022-06-14] MEDS: LORATADINE 10 MG TAB PO SCH (20:36)
[2022-06-15] MEDS: NITROGLYCERIN OINT 1 INCH/GM PACKET TOPICAL SCH ×3 (01:47→14:52)
[2022-06-15] MEDS: SEVELAMER 800 MG TAB PO SCH ×3 (06:43→17:23)
[2022-06-15] MEDS: DOCUSATE 100 MG CAP PO SCH ×2 (07:38→21:06)
[2022-06-15] MEDS: CLOPIDOGREL 75 MG TAB PO SCH (07:43)
[2022-06-15] MEDS: PANTOPRAZOLE 40 MG TABLET PO SCH ×2 (07:43→21:06)
[2022-06-15] MEDS: allopurinoL 100 MG TAB PO SCH (07:43)
[2022-06-15] MEDS: FINASTERIDE 5 MG TAB PO SCH (07:43)
[2022-06-15] MEDS: METOPROLOL TARTRATE 50 MG TAB PO SCH ×3 (07:43→21:06)
[2022-06-15] MEDS: ALBUTEROL HFA INHALER INHALATION PRN ×3 (08:22→19:48)
[2022-06-15] MEDS: FLUTICASONE 110 MCG INHALER INHALATION SCH ×2 (08:22→19:48)
--- NOTE | 2022-06-15 10:58 | P.PN ---
Subjective Progress Note Date: 06/15/22 Follow-up for ESRD. Objective - Vital Signs Vital signs: Vital Signs Temp 98.0 F 06/15/22 07:38 Pulse 113 H 06/15/22 07:38 Resp 20 06/15/22 07:38 BP 136/65 06/15/22 07:38 Pulse Ox 93 L 06/15/22 07:38 FiO2 Intake & Output 06/14/22 06/15/22 06/15/22 18:59 06:59 18:59 Intake Total 240 Output Total 700 Balance -460 Intake: Oral 240 Output: Hemodialysis 700 Other: Voiding Method Urinal Urinal Urinal Diaper Diaper Diaper # Voids 1 # Bowel Movements 1 - Exam No acute distress S1-S2 heard Lungs clear Edema - Labs CBC & Chem 7: 06/13/22 08:12 06/15/22 10:22 Labs: Abnormal Lab Results - Last 24 Hours (Table) 06/15/22 Range/Units 10:22 Potassium 3.0 L (3.5-5.1) mmol/L Assessment and Plan Assessment: #1 ESRD on hemodialysis TTS schedule via left upper arm aVF #2 altered mental status resolved. #3 A. fib with RVR #4 chronic diastolic CHF #5 anemia with chronic kidney disease #6 hypertension with chronic kidney disease #7 metabolic bone disease #8 hypokalemia Plan: #1 hemodialysis on Thursday as per outpatient schedule. #2 ESRD medications #3 replace KCl
[2022-06-15] MEDS ORDERED: Potassium Replacement Protocol 1 EACH MISC MISCELLANE PRN (11:05)
[2022-06-15] MEDS: POTASSIUM CHLORIDE ER 20 MEQ TAB.ER PO SCH ×2 (11:34→12:42)
[2022-06-15] MEDS: RIVAROXABAN 15 MG TAB PO SCH (17:23)
[2022-06-15] MEDS: LORATADINE 10 MG TAB PO SCH (21:06)
[2022-06-15] MEDS: MULTIVITAMINS, THERA 1 EACH TAB PO SCH (21:06)
[2022-06-15] MEDS: MONTELUKAST 10 MG TAB PO SCH (21:06)
[2022-06-16] MEDS: NITROGLYCERIN OINT 1 INCH/GM PACKET TOPICAL SCH ×2 (00:20→08:01)
[2022-06-16 06:07] VITALS: RESP 19
[2022-06-16] MEDS: SEVELAMER 800 MG TAB PO SCH ×2 (06:14→13:26)
[2022-06-16] MEDS: CLOPIDOGREL 75 MG TAB PO SCH (08:00)
[2022-06-16] MEDS: METOPROLOL TARTRATE 50 MG TAB PO SCH (08:00)
[2022-06-16] MEDS: allopurinoL 100 MG TAB PO SCH (08:00)
[2022-06-16] MEDS: DOCUSATE 100 MG CAP PO SCH (08:00)
[2022-06-16] MEDS: FINASTERIDE 5 MG TAB PO SCH (08:00)
[2022-06-16] MEDS: PANTOPRAZOLE 40 MG TABLET PO SCH (08:01)
[2022-06-16 08:16] VITALS: TEMP 98
[2022-06-16] MEDS: FLUTICASONE 110 MCG INHALER INHALATION SCH (08:17)
[2022-06-16] MEDS: ALBUTEROL HFA INHALER INHALATION PRN ×2 (08:17→12:02)
[2022-06-16 08:50] LABS: Basophils % (A) 1 %; Eosinophils # (A) 0.2 k/uL (0-0.7); Eosinophils % (A) 2 %; HCT 32.3 % (39.0-53.0); HGB 10.4 gm/dL (13.0-17.5); Hypochromasia Marked; Lymphocytes # (A) 1.1 k/uL (1.0-4.8); Lymphocytes % (A) 12 %; MCH 31.1 pg (25.0-35.0); MCHC 32.2 g/dL (31.0-37.0); MCV 96.6 fL (80.0-100.0); Monocytes # (A) 0.7 k/uL (0-1.0); Monocytes % (A) 7 %; Neutrophils # (A) 6.8 k/uL (1.3-7.7); Neutrophils % (A) 76 %; Platelet Count 154 k/uL (150-450); RBC 3.35 m/uL (4.30-5.90); RDW 15.9 % (11.5-15.5); WBC 8.9 k/uL (3.8-10.6)
[2022-06-16 09:00] LABS: Albumin 3.2 g/dL (3.5-5.0); Calcium 9.7 mg/dL (8.4-10.2); Potassium 3.9 mmol/L (3.5-5.1); Total Protein 6.7 g/dL (6.3-8.2)
--- NOTE | 2022-06-16 09:21 | P.PN ---
Subjective Progress Note Date: 06/16/22 HISTORY OF PRESENT ILLNESS This is a 76-year-old male patient with a previous medical history significant for hypertension and hypertensive cardiovascular disease, hyperlipidemia, end- stage renal disease on hemodialysis Thursday and Thursday, history of asthma/COPD, history of CAD post-PCI, history of ankylosing spondylitis, obstructive sleep apnea on a CPAP, CVA. Patient had CVA in June 2021 followed by a long stay at [facility] for subacute rehab. Patient was eventually discharged home and approximately January 2022 to live with his . She states that he did have 2 falls back in February but none in March and April, this month patient has had 5 falls requiring EMS to come and help her get him up. On Thursday and the morning she heard a crash and found him in the bathroom was jammed behind the door. He was able to pull himself up and denied having any pain or injury. Patient went back to bed and when he got for breakfast she heard that he had another fall but this time he had hit his head. EMS picked the patient brought him to [facility]. Patient apparently underwent a CAT scan of the head and neck which were negative. He was prepared for discharge home but he was scheduled for an EGD with Dr. Mendoza on Thursday which is done every 2 years due to Prabhakar's esophagus and it was decided the patient would stay and undergo EGD. The procedure was uneventful but patient had difficulty waking from anesthesia following. He ended up staying another day and was discharged home yesterday. Patient was apparently in his normal state of health and awake and alert when he came home was not having any issues at all. They had dinner together he watch some TV and went to bed around 10 PM. He was started on a new medication, Seroquel 12.5 mg at bedtime which she gave to him before bed. When patient woke up he was having significant cough around 5:45 in the morning. He was able go back to sleep until about 8 AM but she noticed a significant change in his mental status. His last hemodialysis was yesterday and usual schedule is Thursday. Patient was found have a temperature 100.3, heart rate documented at 120 [address] jonatan also at 150 with A. fib with RVR and was given metoprolol 5 mg IV push with improvement down to 110s to 120s for heart rate. Blood pressure initially 143/100, pulse ox 100% on 4 L nasal cannula. WBC 11.4, hemoglobin 10.4, platelet count 201. INR 1.4. Sodium 130, potassium 4.7, chloride 96, CO2 25, BUN 28 creatinine was 5.49. Blood sugar 166. Lactic acid 2.5. Magnesium 1.7. Total bilirubin 1.3, AST 19, ALT 12, alkaline phosphatase 94. Troponin 0.031. ProBNP 30,400. Albumin 3.7. Urinalysis was clear with nitrate and leukoesterase negative. Coronavirus PCR, influenza A, influenza B all were not detected. Lay catheter was placed as a urinalysis was required in the emergency center. Chest x-ray correlate for heart failure consider diffuse interstitial and alveolar pneumonia. Patient was started on cefepime, DuoNeb treatments, consults with pulmonary medicine and nephrology. 06/05: Patient is seen today on the [facility] floor, he continues to have significant mental status changes and not improved from yesterday. CAT scan of the brain without contrast ordered but was nondiagnostic. Patient has been seen by nephrology and undergoing hemodialysis today. Due to confusion and inability to concentrate, one dose of IV Ativan ordered. Patient has been seen by pulmonary medicine and cefepime transitioned to IV Zosyn. 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 Last evening, Cardizem drip was started at 5 mg per hour as heart rate was in the 180s and pulse ox dropped down to 86% and 2 L nasal cannula was applied. Today, patient is unable to take any of his oral medications due to his mental status. His temperature max has been 102.3, heart rate now at 87, blood pressure 142/87, pulse ox 93% on room air. Consult added for cardiology although heart rate is controlled at this time. Patient is continued on Cardizem drip due to inability to take oral medications. 06/06: Patient is found sleeping in his bed this morning. He does wake up opens his eyes and answering questions with one-word answers. He is able to drink water without any signs of coughing or choking. He does have a speech therapy evaluation scheduled for today. Patient is continued on IV Zosyn and IV vancomycin. Blood work from yesterday revealed WBC of 15.4, hemoglobin 10.1 and platelet count 165. Sodium 138, potassium 5.3, chloride 100, CO2 23, BUN 42 and creatinine 7.05. Blood sugar 125. Ammonia level less than 9. Pro-calcitonin 0.47. Total bilirubin 1.5, AST 33, ALT 11, alkaline phosphatase 71. Consult was added yesterday for neurology due to concern for ongoing mental status changes and patient not improving after starting antibiotics. Patient was seen by Dr. Beck for suspected encephalopathy, EEG and repeat CAT scan have been ordered and anesthesia for CSF study. Patient's last dose of Xarelto would have been on 06/03. Neurologys added in infectious disease as well. Patient is scheduled for hemodialysis tomorrow. Dr. Campuzano is recommending continuing vancomycin and Zosyn while waiting for cultures finalized.blood cultures are sh owing no growth after 24 hours 1 specimen. Cardiology consult was added yesterday for A. fib with RVR. Patient remains on Cardizem drip. He has not been started on oral medications as of yet and waiting for speech therapy evaluation but expect that patient will be started on orals today. 06/07: Patient is sitting up in bed more awake he is eating pureed diet and drink water without issues, has been on Zosyn 3.375 grIVPB Q 8 h for possible gram negative pneumonia, likely due to aspiration, we will continue with monitoring and he will likely be going back to [facility] next week, we will keep on IV heparin, no need for LP at this point 06/08: Patient is laying down in bed in no apparent distress, he is feeling a lot better today, I spoke with his and given updated about his current con dition, he'll likely require to go to subacute rehabilitation she elected to go to [facility] at this time, continue current treatment plan, patient is to resume his medication he is currently off heparin drip, his back on Xarelto, patient back on Plavix 75 mg once every day CAD and stroke prevention as well, we'll continue to monitor the patient very closely. 06/09: Patient remains in atrial fibrillation with controlled rate. He is back on his oral medications and continued on IV Zosyn. Next hemodialysis is scheduled for Thursday on his normal schedule of Thursday. Repeat creatinine 6.55. EEG was abnormal suggestive moderate encephalopathy. No epileptiform discharge. Patient is found sitting up in a chair at the bedside, legs are elevated. Patient appears to be comfortable. He recalls that Lay catheter was removed yesterday. His mental status is improving. Patient has been afebrile, earlier today heart rate in the 90s to low 100s. Blood pressure 150/81, pulse ox 95% on room air. Cardiology increased frequency of metoprolol to 50 mg 3 times daily. Anticipate probable discharge to [facility] tomorrow. 06/10: Patient remains afebrile, heart rate 80s and 90s, blood pressure 158/81, pulse ox 96% on room air. Repeat blood work reveals WBC 12.5, hemoglobin 9.9, platelet count 178. Sodium 140, potassium 4.0, chloride 101, CO2 22, BUN 37 creatinine 7.7. Blood sugar 121. Calcium 9.6. Total bilirubin 1.2, AST 17, ALT 13, alkaline phosphatase 66. Patient is found today sitting up in a recliner, he appears comfortable, he is awake and alert. He is scheduled for hemodialysis today. Plan was to transition IV antibiotics to oral and discharged to [facility] today once dialysis is completed. However, Covid 19 testing came back positive and discharge was held as [facility] would not accept the patient. 06/11: Patient remains afebrile, heart rate 96, blood pressure 148/75, pulse ox 95% on room air. Patient is more groggy today from yesterday. Social work is following for discharge plan on 06/20 due to positive Covid testing. alf was unable to accept patient due to staffing issues. Patient will be transferred to [facility] floor without telemetry. 06/12: Patient remains afebrile, heart rate 85, blood pressure 159/96, pulse ox 96% on room air. Patient is denying any new complaints. He awakens to verbal stimuli. He is waiting for a bed on the [facility] floor. We will transition Zosyn to oral Levaquin to complete course which will be done before he is able to be discharged to [facility]. Patient is due for hemodialysis today. 06/13: Yesterday, patient was reassessed by speech therapy, found to have frequent coughing with thin liquids and etc. He was made nothing by mouth. Modified barium swallow was completed today with recommendations for chopped diet with one-to-one supervision, upright positioning for all oral intake and encourage patient to feed himself. Chest x-ray ordered yesterday morning revealed bilateral infiltrate and pleural effusion correlate for heart failure versus diffuse pneumonia. Hemodialysis late in the day which needed to be stopped early due to elevated heart rate. Heart rate improved after his dose of scheduled Lopressor. Patient is scheduled for hemodialysis tomorrow. Repeat blood work reveals WBC 6.1, hemoglobin 9.7, platelet count 149. Sodium 135, potassium 3.1 and replacement has been ordered by nephrology, chloride 98, CO2 26, BUN 14 and creatinine 4.3. Liver function tests were normal. 06/14: patient will benefit from chopped diet, not pureed diet at this point with supervision, since he is no going to eat pureed, appears generally weak and he is getting dialysis , we will continue with current treatment plan, await the transfer to [facility] sometimes next week 06/16: Patient remains afebrile, heart rate 79, blood pressure 118/71, pulse ox 93% on room air. 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 Patient is waiting for a bed on the [facility] floor since 06/11. Patient's diet has been adjusted to a chopped diet with supervision and aspiration precautions. Repeat blood work reveals WBC 8.9, hemoglobin 10.4, platelet count 154. Electrolytes are all within normal limits including a potassium of 3.9. BUN 21 creatinine 6.2. Blood sugar 112. Liver function tests within normal limits. Patient noted to have continued cough and throat clearing since admission. Patient is waiting for discharge to [facility] on 06/20. REVIEW OF SYSTEMS Constitutional: No fever, no chills, no night sweats. No weight change. Reported weakness, reported fatigue reported lethargy. Noted daytime sleepiness. HEENT: No headache. No blurred vision or double vision, no loss of vision. No loss of Hearing, no ringing in the ears, no dizziness. No nasal drainage or congestion. No epistaxis. No sore throat. Lungs: No shortness of breath, noted cough, no sputum production. No wheezing. Cardiovascular: No chest pain, no lower extremity edema. No palpitations. No paroxysmal nocturnal dyspnea. No orthopnea. No lightheadedness or dizziness. No syncopal episodes. Abdominal: No abdominal pain. No nausea, vomiting. No diarrhea. No constipation. No bloody or tarry stools.. No loss of appetite. Genitourinary: No dysuria, increased frequency, urgency. No urinary retention. Patient makes very little urine. Musculoskeletal: No myalgias. No muscle weakness, no gait dysfunction, no frequent falls. No back pain. No neck pain. Integumentary: No wounds, no lesions. No rash or pruritus. No unusual bruising. No change in hair or nails. Neurologic: Reported aphasia. No facial droop. Noted change in mentation. No head injury. No headache. No paralysis. No paresthesia. Psychiatric: No depression. No anxiety. No mood swings. Endocrine: No abnormal blood sugars. No weight change. No excessive sweating or thirst. No cold intolerance. PHYSICAL EXAMINATION Gen: This is a 75-year-old obese male. He is resting in bed and appears to be in no acute distress HEENT: Head is atraumatic, normocephalic. Pupils equal, round. Sclerae is a nicteric, mucous membranes of the mouth are somewhat dry. NECK: Supple. No JVD. No lymphadenopathy. No thyromegaly. LUNGS: Decreased breath sounds at the bases. No crackles, no wheezes. No intercostal retractions, positive for ronchi to the left lower third. HEART: First heart sound is depressed, second heart sound is normal, there is systolic ejection murmur 2/6 located in the left sternal border. ABDOMEN: Soft. Bowel sounds are present. No masses. No tenderness. Lay catheter in place with small amount of urine output. EXTREMITIES: No pedal edema. No calf tenderness. Dorsalis pedis +1 bilaterally. NEUROLOGICAL: Patient awake, opens eyes to verbal stimuli, able to answer questions and follow a few simple commands. Generalized weakness noted. ASSESSMENT AND PLAN 1. Metabolic encephalopathy secondary to aspiration pneumonia. Continue antibiotics. Lumbar puncture was canceled. 2. Acute hypoxic respiratory failure secondary to A. fib with RVR and aspiration pneumonia. continue Metoprolol 50 mg po tid, continue antibiotics transition to oral Levaquin, continue Xarelto 15 mg orally daily 3. Aspiration pneumonia and sepsis. Continue with Levaquin, DuoNeb treatments every 4 hours as needed, consult with pulmonary medicine appreciated. 4. Lactic acidosis secondary to pneumonia. Continue treatment as a #2. 5. Atrial fibrillation with RVR, paroxysmal atrial fibrillation, status post IV Lopressor. continue with Metoprolol 50 mg po tid, continue Xarelto 15 mg once every day. 6. Acute on chronic diastolic heart failure. we will continue with Metoprolol 50 mg orally tid, continue hemodialysis. 6. History of CVA. we will resume Atorvastatin 10 mg po daily, resume clopidogrel 75 mg once every day. 7. End-stage renal disease on hemodialysis. Consult with nephrology appreciated. Patient scheduled for hemodialysis today. 8. Hypertension, hypertensive cardiovascular disease. Continue patient on Metoprolol 50 mg po increased frequency to tid. 9. Hyperlipidemia. Continue atorvastatin 10 mg po daily. 10. History of coronary artery disease status post PCI. Continue patient on Imdur 30 mg daily, Lipitor, continue Lopressor 50 mg orally tid and clopidogrel 75 mg once every day. 11. Moderate intermittent asthma, stable. Continue Pulmicort 0.5 mg twice daily, Mucinex 1200 mg oral every 12 hours as needed for cough, DuoNeb treatments. 12. Benign prostatic hypertrophy. Stable. 13. Gastroesophageal reflux disease. Continue PPI. 14. DVT prophylaxis. we will continue with Xarelto 15 mg orally daily. 15. Testing positive for COVID19. 16. Full code. 17. PT evaluation. DISCHARGE PLAN Subacute rehab at [facility] on 06/20. Impression and plan of care have been directed as dictated by the signing kala rios. Missy Manzano nurse practitioner acting as scribe for signing physician. Objective - Vital Signs Vital signs: Vital Signs Temp 97.6 F 06/15/22 20:00 Pulse 79 06/16/22 02:00 Resp 19 06/16/22 02:00 BP 118/71 06/16/22 02:00 Pulse Ox 93 L 06/16/22 02:00 FiO2 Intake & Output 06/15/22 06/16/22 06/16/22 18:59 06:59 18:59 Other: Voiding Method Urinal Urinal Diaper Diaper # Bowel Movements 1 - Labs CBC & Chem 7: 06/16/22 07:53 06/16/22 07:53 Labs: Abnormal Lab Results - Last 24 Hours (Table) 06/15/22 Range/Units 10: Potassium 3.0 L (3.5-5.1) mmol/L
[2022-06-16] MEDS: LEVOFLOXACIN 500 MG TAB PO SCH (09:47)
--- NOTE | 2022-06-16 10:53 | P.PN ---
Subjective Patient is seen in follow-up for end-stage renal disease. He is maintained on hemodialysis on Thursday schedule. Resting in bed. Awake. Denies chest pain or shortness of breath. Hemodynamically stable. On 2 L nasal cannula. Vital signs are stable. General: No acute distress. HEENT: Head exam is unremarkable. LUNGS: Breath sounds decreased. HEART: Tachycardic. ABDOMEN: Soft, no distention. EXTREMITITES: No edema. Objective - Vital Signs Vital signs: Vital Signs Temp 98.0 F 06/16/22 08:15 Pulse 121 H 06/16/22 08:15 Resp 19 06/16/22 08:15 BP 141/87 06/16/22 08:15 Pulse Ox 96 06/16/22 08:15 FiO2 Intake & Output 06/15/22 06/16/22 06/16/22 18:59 06:59 18:59 Intake Total 0 Balance 0 Intake: Oral 0 Other: Voiding Method Urinal Urinal Urinal Diaper Diaper Diaper # Bowel Movements 1 - Labs CBC & Chem 7: 06/16/22 07:53 06/16/22 07:53 Labs: Abnormal Lab Results - Last 24 Hours (Table) 06/16/22 06/16/22 Range/Units 07:53 07:53 RBC 3.35 L (4.30-5.90) m/uL Hgb 10.4 L (13.0-17.5) gm/dL Hct 32.3 L (39.0-53.0) % RDW 15.9 H (11.5-15.5) % BUN 21 H (9-20) mg/dL Creatinine 6.24 H (0.66-1.25) mg/dL Glucose 112 H (74-99) mg/dL Albumin 3.2 L (3.5-5.0) g/dL Assessment and Plan Plan: Assessment: 1. End-stage renal disease maintained on hemodialysis on Thursday schedule. Patient has AV fistula. 2. Aspiration pneumonia on antibiotics. ID following. 3. Chronic kidney disease mineral bone disease maintained on Renvela. Phosphorus 4.1 this admission. 4. Hypokalemia from poor intake. Replaced. Better. 5. A. fib with RVR maintained on Lopressor. 6. Chronic diastolic CHF. 7. Anemia of chronic kidney disease. 8. History of coronary artery disease. 9. COVID-19 infection. Plan: Hemodialysis tomorrow. Awaits placement.
--- NOTE | 2022-06-16 12:20 | P.DS ---
Providers Date of admission: 06/04/22 13:56 Expected date of discharge: 06/16/22 Attending physician: Jyotsna Kovacs Consults: 06/04/22 13:46 Consult Physician Routine Consulting Provider: Margareth Whyte Consult Reason/Comments: Aspiration pneumonitis Do you want consulting provider notified?: Yes 06/04/22 13:47 Consult Physician Routine Consulting Provider: Frank Hameed Consult Reason/Comments: Chronic renal failure, dialysis Do you want consulting provider notified?: Yes 06/04/22 13:48 Consult Physician Routine Consulting Provider: Frank Hameed Consult Reason/Comments: ESRD on HD Do you want consulting provider notified?: Yes Consult Physician Routine Consulting Provider: Margareth hWyte Consult Reason/Comments: aspiration pneumonia Do you want consulting provider notified?: Yes 06/05/22 14:48 Consult Physician Routine Consulting Provider: Alexander Beck Consult Reason/Comments: mental status changes, falls Do you want consulting provider notified?: Yes 06/05/22 15:53 Consult Physician Routine Consulting Provider: Nava Campuzano Consult Reason/Comments: fever, AMS Do you want consulting provider notified?: Yes Primary care physician: Jyotsna Kovacs Hospital Course: HISTORY OF PRESENT ILLNESS This is a 76-year-old male patient with a previous medical history significant for hypertension and hypertensive cardiovascular disease, hyperlipidemia, end- stage renal disease on hemodialysis Thursday and Thursday, history of asthma/COPD, history of CAD post-PCI, history of ankylosing spondylitis, obstructive sleep apnea on a CPAP, CVA. Patient had CVA in June 2021 followed by a long stay at [facility] for subacute rehab. Patient was eventually discharged home and approximately January 2022 to live with his . She states that he did have 2 falls back in February but none in March and April, this month patient has had 5 falls requiring EMS to come and help her get him up. On Thursday and the morning she heard a crash and found him in the bathroom was jammed behind the door. He was able to pull himself up and denied having any pain or injury. Patient went back to bed and when he got for breakfast she heard that he had another fall but this time he had hit his head. EMS picked the patient brought him to [facility]. Patient apparently underwent a CAT scan of the head and neck which were negative. He was prepared for discharge home but he was scheduled for an EGD with Dr. Mendoza on Thursday which is done every 2 years due to Prabhakar's esophagus and it was decided the patient would stay and undergo EGD. The procedure was uneventful but patient had difficulty waking from anesthesia following. He ended up staying another day and was discharged home yesterday. Patient was apparently in his normal state of health and awake and alert when he came home was not having any issues at all. They had dinner together he watch some TV and went to bed around 10 PM. He was started on a new medication, Seroquel 12.5 mg at bedtime which she gave to him before bed. When patient woke up he was having significant cough around 5:45 in the morning. He was able go back to sleep until about 8 AM but she noticed a significant change in his mental status. His last hemodialysis was yesterday and usual schedule is Thursday. Patient was found have a temperature 100.3, heart rate documented at 120 although also at 150 with A. fib with RVR and was given metoprolol 5 mg IV push with improvement down to 110s to 120s for heart rate. Blood pressure initially 143/100, pulse ox 100% on 4 L nasal cannula. WBC 11.4, hemoglobin 10.4, platelet count 201. INR 1.4. Sodium 130, potassium 4.7, chloride 96, CO2 25, BUN 28 creatinine was 5.49. Blood sugar 166. Lactic acid 2.5. Magnesium 1.7. Total bilirubin 1.3, AST 19, ALT 12, alkaline phosphatase 94. Troponin 0.031. ProBNP 30,400. Albumin 3.7. Urinalysis was clear with nitrate and leukoesterase negative. Coronavirus PCR, influenza A, influenza B all were not detected. Lay catheter was placed as a urinalysis was required in the emergency center. Chest x-ray correlate for heart failure consider diffuse interstitial and alveolar pneumonia. Patient was started on cefepime, DuoNeb treatments, consults with pulmonary medicine and nephrology. 06/05: Patient is seen today on the [facility] floor, he continues to have sig nificant mental status changes and not improved from yesterday. CAT scan of the brain without contrast ordered but was nondiagnostic. Patient has been seen by nephrology and undergoing hemodialysis today. Due to confusion and inability to concentrate, one dose of IV Ativan ordered. Patient has been seen by pulmonary medicine and cefepime transitioned to IV Zosyn. clinical research monitor remains atrial fibrillation with controlled rate. Last evening, Cardizem drip was started at 5 mg per hour as heart rate was in the 180s and pulse ox dropped down to 86% and 2 L nasal cannula was applied. Today, patient is unable to take any of his oral medications due to his mental status. His temperature max has been 102.3, heart rate now at 87, blood pressure 142/87, pulse ox 93% on room air. Consult added for cardiology although heart rate is controlled at this time. Patient is continued on Cardizem drip due to inability to take oral medications. 06/06: Patient is found sleeping in his bed this morning. He does wake up opens his eyes and answering questions with one-word answers. He is able to drink water without any signs of coughing or choking. He does have a speech therapy evaluation scheduled for today. Patient is continued on IV Zosyn and IV vancomycin. Blood work from yesterday revealed WBC of 15.4, hemoglobin 10.1 and platelet count 165. Sodium 138, potassium 5.3, chloride 100, CO2 23, BUN 42 and creatinine 7.05. Blood sugar 125. Ammonia level less than 9. Pro-calcitonin 0.47. Total bilirubin 1.5, AST 33, ALT 11, alkaline phosphatase 71. Consult was added yesterday for neurology due to concern for ongoing mental status changes and patient not improving after starting antibiotics. Patient was seen by Dr. Beck for suspected encephalopathy, EEG and repeat CAT scan have been ordered and anesthesia for CSF study. Patient's last dose of Xarelto would have been on 06/03. Neurologys added in infectious disease as well. Patient is scheduled for hemodialysis tomorrow. Dr. Campuzano is recommending continuing vancomycin and Zosyn while waiting for cultures finalized.blood cultures are showing no growth after 24 hours 1 specimen. Cardiology consult was added yesterday for A. fib with RVR. Patient remains on Cardizem drip. He has not been started on oral medications as of yet and waiting for speech therapy evaluation but expect that patient will be started on orals today. 06/07: Patient is sitting up in bed more awake he is eating pureed diet and drink water without issues, has been on Zosyn 3.375 grIVPB Q 8 h for possible gram negative pneumonia, likely due to aspiration, we will continue with monitoring and he will likely be going back to [facility] next week, we will keep on IV heparin, no need for LP at this point 06/08: Patient is laying down in bed in no apparent distress, he is feeling a lot better today, I spoke with his and given updated about his current condition, he'll likely require to go to subacute rehabilitation she elected to go to [facility] at this time, continue current treatment plan, patient is to resume his medication he is currently off heparin drip, his back on Xarelto, patient back on Plavix 75 mg once every day CAD and stroke prevention as well, we'll continue to monitor the patient very closely. 06/09: Patient remains in atrial fibrillation with controlled rate. He is back on his oral medications and continued on IV Zosyn. Next hemodialysis is scheduled for Thursday on his normal schedule of Thursday. Repeat creatinine 6.55. EEG was abnormal suggestive moderate encephalopathy. No epileptiform discharge. Patient is found sitting up in a chair at the bedside, legs are elevated. Patient appears to be comfortable. He recalls that Lay catheter was removed yesterday. His mental status is improving. Patient has been afebrile, earlier today heart rate in the 90s to low 100s. Blood pressure 150/81, pulse ox 95% on room air. Cardiology increased frequency of metoprolol to 50 mg 3 times daily. Anticipate probable discharge to [facility] tomorrow. 06/10: Patient remains afebrile, heart rate 80s and 90s, blood pressure 158/81, pulse ox 96% on room air. Repeat blood work reveals WBC 12.5, hemoglobin 9.9, platelet count 178. Sodium 140, potassium 4.0, chloride 101, CO2 22, BUN 37 creatinine 7.7. Blood sugar 121. Calcium 9.6. Total bilirubin 1.2, AST 17, ALT 13, alkaline phosphatase 66. Patient is found today sitting up in a recliner, he appears comfortable, he is awake and alert. He is scheduled for hemodialysis today. Plan was to transition IV antibiotics to oral and discharged to [facility] today once dialysis is completed. However, Covid 19 testing came back positive and discharge was held as [facility] would not accept the patient. 06/11: Patient remains afebrile, heart rate 96, blood pressure 148/75, pulse ox 95% on room air. Patient is more groggy today from yesterday. Social work is following for discharge plan on 06/20 due to positive Covid testing. detention was unable to accept patient due to staffing issues. Patient will be transferred to [facility] floor without telemetry. 06/12: Patient remains afebrile, heart rate 85, blood pressure 159/96, pulse ox 96% on room air. Patient is denying any new complaints. He awakens to verbal stimuli. He is waiting for a bed on the [facility] floor. We will transition Zosyn to oral Levaquin to complete course which will be done before he is able to be discharged to [facility]. Patient is due for hemodialysis today. 06/13: Yesterday, patient was reassessed by speech therapy, found to have frequent coughing with thin liquids and etc. He was made nothing by mouth. Modified barium swallow was completed today with recommendations for chopped diet with one-to-one supervision, upright positioning for all oral intake and encourage patient to feed himself. Chest x-ray ordered yesterday morning revealed bilateral infiltrate and pleural effusion correlate for heart failure versus diffuse pneumonia. Hemodialysis late in the day which needed to be stopped early due to elevated heart rate. Heart rate improved after his dose of scheduled Lopressor. Patient is scheduled for hemodialysis tomorrow. Repeat blood work reveals WBC 6.1, hemoglobin 9.7, platelet count 149. Sodium 135, potassium 3.1 and replacement has been ordered by nephrology, chloride 98, CO2 26, BUN 14 and creatinine 4.3. Liver function tests were normal. 06/14: patient will benefit from chopped diet, not pureed diet at this point with supervision, since he is no going to eat pureed, appears generally weak and he is getting dialysis , we will continue with current treatment plan, await the transfer to [facility] sometimes next week 06/16: Patient remains afebrile, heart rate 79, blood pressure 118/71, pulse ox 93% on room air. clinical research monitor has been atrial fibrillation with controlled rate so we will discontinue cardiac monitoring for now. Patient is waiting for a bed on the [facility] floor since 06/11. Patient's diet has been adjusted to a chopped diet with supervision and aspiration precautions. Repeat blood work reveals WBC 8.9, hemoglobin 10.4, platelet count 154. Electrolytes are all within normal limits including a potassium of 3.9. BUN 21 creatinine 6.2. Blood sugar 112. Liver function tests within normal limits. Patient noted to have continued cough and throat clearing since admission. Patient is waiting for discharge to [facility] on 06/20. Patient will be discharged to [facility] today in stable condition. DISCHARGE DIAGNOSES 1. Metabolic encephalopathy secondary to aspiration pneumonia. 2. Acute hypoxic respiratory failure secondary to A. fib with RVR and aspiration pneumonia. 3. Aspiration pneumonia and sepsis. 4. Lactic acidosis secondary to pneumonia. 5. Atrial fibrillation with RVR, paroxysmal atrial fibrillation. 6. Acute on chronic diastolic heart failure. 6. History of CVA. 7. End-stage renal disease on hemodialysis. 8. Hypertension, hypertensive cardiovascular disease. 9. Hyperlipidemia. 10. History of coronary artery disease status post PCI. 11. Moderate intermittent asthma, stable. 12. Benign prostatic hypertrophy. 13. Gastroesophageal reflux disease. 14. Testing positive for COVID19. DISCHARGE PLAN Subacute rehab at [facility] Discharge no Impression and plan of care have been directed as dictated by the signing physician. Missy Manzano nurse practitioner acting as scribe for signing physician. Patient Condition at Discharge: Fair Plan - Discharge Summary New Discharge Prescriptions: New Ipratropium-Albuterol Nebulize [Duoneb 0.5 mg-3 mg/3 ml Soln] 3 ml INHALATION RT-Q4H PRN each PRN Reason: shortness of breath Metoprolol Tartrate [Lopressor] 50 mg PO TID tab Moxifloxacin HCl [Avelox] 400 mg PO DAILY #7 tab Continue Montelukast [Singulair] 10 mg PO HS Dutasteride [Avodart] 0.5 mg PO DAILY Beclomethasone Dipropionate [Qvar 80 mcg/puff] 2 puff INHALATION RT-BID Ergocalciferol [Vitamin D2 (DRISDOL)] 50,000 unit PO WE Isosorbide Mononitrate ER [Imdur] 30 mg PO DAILY Lansoprazole 30 mg PO BID Febuxostat [Uloric] 80 mg PO DAILY Sevelamer [Renvela] 800 mg PO BID-W/MEALS Albuterol Inhaler [Ventolin Hfa Inhaler] 2 puff INHALATION RT-QID PRN PRN Reason: Shortness Of Breath Omalizumab [Xolair] 150 mg SQ Q28D Loratadine 10 mg PO HS Docusate Sodium [Dok] 100 mg PO BID Nitroglycerin Sl Tabs [Nitrostat] 0.4 mg SUBLINGUAL Q5M PRN PRN Reason: Chest Pain Clopidogrel [Plavix] 75 mg PO DAILY tab Sevelamer [Renvela] 800 mg PO SUMOWEFR@1200 EPINEPHrine (Auto Inject) [Epipen] 0.3 mg PO ONCE PRN PRN Reason: Anaphylaxis Lidocaine-Prilocaine Cream [Emla Cream 2.5%/2.5%] 1 applic TOPICAL DIRECTED Renavite 1 tab PO HS Rivaroxaban [Xarelto] 15 mg PO W/SUPPER tab Atorvastatin Calcium [Lipitor] 10 mg PO MOWEFR@2100 guaiFENesin [Mucinex] 1,200 mg PO Q12H PRN PRN Reason: Congestion Discontinued Torsemide [Demadex] 20 mg PO DAILY QUEtiapine [SEROquel] 12.5 mg PO HS Midodrine HCl [ProAmatine] 10 mg PO TID Budesonide [Pulmicort] 0.5 mg INHALATION RT-BID Metoprolol Tartrate [Lopressor] 50 mg PO BID Discharge Medication List Dutasteride [Avodart] 0.5 mg PO DAILY 11/11/14 [History] Montelukast [Singulair] 10 mg PO HS 11/11/14 [History] Beclomethasone Dipropionate [Qvar 80 mcg/puff] 2 puff INHALATION RT-BID 11/21/15 [History] Ergocalciferol [Vitamin D2 (DRISDOL)] 50,000 unit PO WE 11/21/15 [History] Isosorbide Mononitrate ER [Imdur] 30 mg PO DAILY 11/21/15 [History] Febuxostat [Uloric] 80 mg PO DAILY 10/22/16 [History] Lansoprazole 30 mg PO BID 10/22/16 [History] Sevelamer [Renvela] 800 mg PO BID-W/MEALS 11/03/19 [History] Albuterol Inhaler [Ventolin Hfa Inhaler] 2 puff INHALATION RT-QID PRN 02/11/20 [History] Omalizumab [Xolair] 150 mg SQ Q28D 02/13/20 [History] Docusate Sodium [Dok] 100 mg PO BID 03/17/20 [History] Loratadine 10 mg PO HS 03/17/20 [History] Lidocaine-Prilocaine Cream [Emla Cream 2.5%/2.5%] 1 applic TOPICAL DIRECTED 06/13/21 [History] Nitroglycerin Sl Tabs [Nitrostat] 0.4 mg SUBLINGUAL Q5M PRN 06/13/21 [History] Renavite 1 tab PO HS 06/13/21 [History] Clopidogrel [Plavix] 75 mg PO DAILY tab 06/17/21 [Rx] Rivaroxaban [Xarelto] 15 mg PO W/SUPPER tab 06/17/21 [Rx] Atorvastatin Calcium [Lipitor] 10 mg PO MOWEFR@2100 06/04/22 [History] EPINEPHrine (Auto Inject) [Epipen] 0.3 mg PO ONCE PRN 06/04/22 [History] Sevelamer [Renvela] 800 mg PO SUMOWEFR@1200 06/04/22 [History] guaiFENesin [Mucinex] 1,200 mg PO Q12H PRN 06/04/22 [History] Ipratropium-Albuterol Nebulize [Duoneb 0.5 mg-3 mg/3 ml Soln] 3 ml INHALATION RT-Q4H PRN each 06/10/22 [Rx] Metoprolol Tartrate [Lopressor] 50 mg PO TID tab 06/10/22 [Rx] Moxifloxacin HCl [Avelox] 400 mg PO DAILY #7 tab 06/10/22 [Rx] Follow up Appointment(s)/Referral(s): Tabby Kurtz MD [STAFF PHYSICIAN] - 2 Weeks Jyotsna Kovacs MD [Primary Care Provider] - 1 Week (at [facility]) Discharge Disposition: TRANSFER TO SNF/F
[2022-06-16] MEDS: ATORVASTATIN 10 MG TAB PO SCH (13:24)
[2022-06-16 13:37] VITALS: BP 149/84; PULSE 102
== END 2022-06-16 15:43 | DRG 871 ==
LOC: EC 10:37 → 3SCARD 13:56
PROVIDERS: ADMIT Internal Medicine; ATTEND Internal Medicine
PROC: 5A1D70Z Performance of Urinary Filtration, Intermittent, Less than 6 Hours Per Day (ICD-10-PCS; 2022-06-05)
PROC: 05HB33Z Insertion of Infusion Device into Right Basilic Vein, Percutaneous Approach (ICD-10-PCS; principal; 2022-06-11 16:40)
DX: A41.9 Sepsis, unspecified organism (principal); G93.41 Metabolic encephalopathy; J96.01 Acute respiratory failure with hypoxia; J69.0 Pneumonitis due to inhalation of food and vomit; I50.33 Acute on chronic diastolic (congestive) heart failure; U07.1 COVID-19; J15.6 Pneumonia due to other Gram-negative bacteria; N18.6 End stage renal disease; I13.2 Hypertensive heart and chronic kidney disease with heart failure and with stage 5 chronic kidney disease, or end stage renal disease; E87.20 Acidosis, unspecified; F05 Delirium due to known physiological condition; J44.0 Chronic obstructive pulmonary disease with (acute) lower respiratory infection; G31.9 Degenerative disease of nervous system, unspecified; I48.0 Paroxysmal atrial fibrillation; M45.9 Ankylosing spondylitis of unspecified sites in spine; Z99.2 Dependence on renal dialysis; J45.40 Moderate persistent asthma, uncomplicated; D63.1 Anemia in chronic kidney disease; E83.9 Disorder of mineral metabolism, unspecified; E78.5 Hyperlipidemia, unspecified; G47.33 Obstructive sleep apnea (adult) (pediatric); I25.10 Atherosclerotic heart disease of native coronary artery without angina pectoris; K21.9 Gastro-esophageal reflux disease without esophagitis; F32.9 Major depressive disorder, single episode, unspecified; N40.0 Benign prostatic hyperplasia without lower urinary tract symptoms; G89.29 Other chronic pain; M54.50 Low back pain, unspecified; H91.90 Unspecified hearing loss, unspecified ear; R29.6 Repeated falls; K22.70 Barrett's esophagus without dysplasia; H93.13 Tinnitus, bilateral; E87.6 Hypokalemia; M19.90 Unspecified osteoarthritis, unspecified site; M10.072 Idiopathic gout, left ankle and foot; M10.071 Idiopathic gout, right ankle and foot; Z79.01 Long term (current) use of anticoagulants; Z79.51 Long term (current) use of inhaled steroids; Z79.02 Long term (current) use of antithrombotics/antiplatelets; Z79.899 Other long term (current) drug therapy; Z85.828 Personal history of other malignant neoplasm of skin; Z95.5 Presence of coronary angioplasty implant and graft; Z86.73 Personal history of transient ischemic attack (TIA), and cerebral infarction without residual deficits; Z71.3 Dietary counseling and surveillance; Z88.8 Allergy status to other drugs, medicaments and biological substances
CPT/HCPCS: 36410; 36415; 70450; 71045; 71046; 74230; 76937; 80051; 80053; 80202; 81001; 82140; 82565; 83605; 83735; 83880; 84100; 84132; 84145; 84443; 84484; 85025; 85027; 85610; 85730; 86140; 87040; 87502; 87635; 90935; 93005; 94640; 94760; 95816; 96361; 96365; 96375; 99291

== ENCOUNTER 2022-06-22 07:57 | Emergency (ER) | payer MEDICARE, BC, OTHER ==
--- NOTE | 2022-06-22 08:08 | ED ---
Fall HPI - General Chief Complaint: Fall Stated Complaint: Fall Time Seen by Provider: 06/22/22 07:59 Source: patient, RN notes reviewed Mode of arrival: EMS - History of Present Illness Initial Comments: This is a 76-year-old male who presents to the emergency department for a fall. Patient currently resides at [facility]. States that he was getting up to use the bathroom, when he fell backwards and hit his head. He usually uses a walker for ambulation, however he tried to get to the bathroom on his own. Denies any loss of consciousness and the patient had no symptoms such as dizziness, lightheadedness, chest pain, or shortness of breath prior to the fall, and states that he simply lost his balance due to not having his walker. He currently denies any pain. He is on Xarelto daily. Additionally, the patient is noted to be coughing in the examination room. Patient believes that this has been present for several months. Per [facility], he is just recovering from COVID, which he tested positive for on 06/10/2022. He was admitted from 06/04-06/16 for aspiration pneumonia and acute hypoxic respiratory failure. He was discharged on a 7 day course of Avelox which he is continuing to take. Denies any fevers, chills, sore throat, dyspnea, chest pain, palpitations, abdominal pain, nausea, vomiting, diarrhea, back pain, or headaches. MD Complaint: fall Fall From: standing Place Fall Occurred: alf/SNF Symptoms Prior to Fall: none Location: head - Related Data Home Medications Medication Instructions Recorded Confirmed Dutasteride [Avodart] 0.5 mg PO DAILY 11/11/14 06/04/22 Montelukast [Singulair] 10 mg PO HS 11/11/14 06/04/22 Beclomethasone Dipropionate [Qvar 2 puff INHALATION RT-BID 11/21/15 06/04/22 80 mcg/puff] Ergocalciferol [Vitamin D2 50,000 unit PO WE 11/21/15 06/04/22 (DRISDOL)] Isosorbide Mononitrate ER [Imdur] 30 mg PO DAILY 11/21/15 06/04/22 Febuxostat [Uloric] 80 mg PO DAILY 10/22/16 06/04/22 Lansoprazole 30 mg PO BID 10/22/16 06/04/22 Sevelamer [Renvela] 800 mg PO BID-W/MEALS 11/03/19 06/04/22 Albuterol Inhaler [Ventolin Hfa 2 puff INHALATION RT-QID PRN 02/11/20 06/04/22 Inhaler] Omalizumab [Xolair] 150 mg SQ Q28D 02/13/20 06/04/22 Docusate Sodium [Dok] 100 mg PO BID 03/17/20 06/04/22 Loratadine 10 mg PO HS 03/17/20 06/04/22 Lidocaine-Prilocaine Cream [Emla 1 applic TOPICAL DIRECTED 06/13/21 06/04/22 Cream 2.5%/2.5%] Nitroglycerin Sl Tabs [Nitrostat] 0.4 mg SUBLINGUAL Q5M PRN 06/13/21 06/04/22 Renavite 1 tab PO HS 06/13/21 06/04/22 Atorvastatin Calcium [Lipitor] 10 mg PO MOWEFR@2100 06/04/22 06/04/22 EPINEPHrine (Auto Inject) [Epipen] 0.3 mg PO ONCE PRN 06/04/22 06/04/22 Sevelamer [Renvela] 800 mg PO SUMOWEFR@1200 06/04/22 06/04/22 guaiFENesin [Mucinex] 1,200 mg PO Q12H PRN 06/04/22 06/04/22 Previous Rx's Medication Instructions Recorded Clopidogrel [Plavix] 75 mg PO DAILY tab 06/17/21 Rivaroxaban [Xarelto] 15 mg PO W/SUPPER tab 06/17/21 Ipratropium-Albuterol Nebulize 3 ml INHALATION RT-Q4H PRN each 06/10/22 [Duoneb 0.5 mg-3 mg/3 ml Soln] Metoprolol Tartrate [Lopressor] 50 mg PO TID tab 06/10/22 Moxifloxacin HCl [Avelox] 400 mg PO DAILY #7 tab 06/10/22 Benzonatate [Tessalon Perle] 200 mg PO Q8H PRN #15 capsule 06/22/22 Allergies Allergy/AdvReac Type Severity Reaction Status Date / Time diphenhydramine HCl AdvReac Confusion Verified 06/22/22 08:03 [From Benadryl] Review of Systems ROS Statement: Those systems with pertinent positive or pertinent negative responses have been documented in the HPI. ROS Other: All systems not noted in ROS Statement are negative. Past Medical History Past Medical History: Asthma, Coronary Artery Disease (CAD), Cancer, Heart Failure, COPD, GERD/Reflux, Hearing Disorder / Deafness, Hyperlipidemia, Hypertension, Osteoarthritis (OA), Prostate Disorder, Renal Disease, Sleep Apnea/CPAP/BIPAP Additional Past Medical History / Comment(s): ESRD with hemodialysis on //Thu, anemia, BPH, bronchitis, chronic low back pain, ankylosing spondylosis, gout in ankles in past, concepcion's esophagus, colon polyp, hemorrhoids, behind L ear basal cell skin cancer with removal, L hand squamous cell skin cancer removal, JF with Bipap, bilateral tinnitis, CHF per 2017 medical record but pt does not recall. History of Any Multi-Drug Resistant Organisms: None Reported Past Surgical History: Appendectomy, Cholecystectomy, Heart Catheterization, Heart Catheterization With Stent, Hernia Repair Additional Past Surgical History / Comment(s): Fistula L arm, EGDs, colonoscopies, abdominal hernia repair, ivette fundoplication, ruptured gallbladder with christelle/appy and piece of bowel removed, hemorrhoidectomy, behind L ear lesion removed and another from L hand, bilateral cataract removals/lens implants. Past Anesthesia/Blood Transfusion Reactions: No Reported Reaction Additional Past Anesthesia/Blood Transfusion Reaction / Comment(s): . Date of Last Stent Placement:: 2003 Past Psychological History: No Psychological Hx Reported Smoking Status: Never smoker Past Alcohol Use History: None Reported Past Drug Use History: None Reported - Past Family History Mother Family Medical History: Cancer Additional Family Medical History / Comment(s): Mother at age 72 from BREAST CANCER Father Family Medical History: Myocardial Infarction ([place]) Additional Family Medical History / Comment(s): Father of a [place] at the age of 48 yrs. Sister(s) Family Medical History: Diabetes Mellitus Additional Family Medical History / Comment(s): Patient has one sister. Patient's son have any brothers. Patient has 2 children with no major medical problems. General Exam Limitations: no limitations General appearance: alert, in no apparent distress Head exam: Present: atraumatic, normocephalic, normal inspection Eye exam: Present: normal appearance, PERRL, EOMI. Absent: scleral icterus, conjunctival injection, periorbital swelling Respiratory exam: Present: normal lung sounds bilaterally. Absent: respiratory distress, wheezes, rales, rhonchi, stridor Cardiovascular Exam: Present: regular rate, normal rhythm, normal heart sounds. Absent: systolic murmur, diastolic murmur, rubs, gallop, clicks Neurological exam: Present: alert Psychiatric exam: Present: normal affect, normal mood Skin exam: Present: warm, dry, intact, normal color. Absent: rash Course Vital Signs 06/22/22 06/22/22 07:58 09:59 Temperature 98.1 F Pulse Rate 102 H 106 H Respiratory 16 18 Rate Blood Pressure 135/97 127/88 O2 Sat by Pulse 95 93 L Oximetry Medical Decision Making - Medical Decision Making This is a 76-year-old male who presents to the emergency department for a fall. Computed tomography scan of the brain and c-spine obtained, as well as a chest x-ray due to the patient's continued cough. Chest x-ray reveals possible p ulmonary venous hypertension, interstitial edema, and bilateral pleural effusions. Computed tomography scan of the brain and c-spine revealed no acute osseous abnormalities or acute intracranial process. Given the persistent bilateral pleural effusions, patient was given 40 mg of Lasix in the emergency department. He was also given a dose of Tessalon Perles. Rx for Tessalon Perles provided as well to be taken every 8 hours as needed for coughing. Given that his vital signs are stable and he is in no respiratory distress, he does not meet admission criteria at this time. He is instructed to continue the antibiotic as prescribed. Fall prevention was also discussed with the patient, in that he needs to make sure that he is moving slowly and needs to use his walker for ambulation at all times. He should not try to get around without it. Return precautions reviewed in depth, the patient is instructed to return to the emergency department with any new, worsening, or concerning symptoms. Patient verbalized understanding. This case was discussed in detail with the attending ED physician. Presentation, findings, and treatment plan discussed in detail as well. - Radiology Data Radiology results: report reviewed, image reviewed Disposition Clinical Impression: Fall Disposition: HOME SELF-CARE Instructions (If sedation given, give patient instructions): Fall Prevention for Older Adults (ED) Additional Instructions: Return to the emergency department with any new, worsening, or concerning symptoms. Avoid walking without using your walker, as this may cause you to fall again. Also be sure that you are moving slowly. Prescription for Tessalon Perles provided, this can be taken up to every 8 hours for coughing. Follow up with your primary care provider in 1-2 days. Prescriptions: Benzonatate [Tessalon Perle] 200 mg PO Q8H PRN #15 capsule PRN Reason: Cough Is patient prescribed a controlled substance at d/c from ED?: No Referrals: Jyotsna Kovacs MD [Primary Care Provider] - 1-2 days
[2022-06-22] MEDS ORDERED: HYDROmorphone 0.5 MG/0.5 ML SYRINGE IM STA (08:26)
--- NOTE | 2022-06-22 08:51 | XR ---
EXAMINATION TYPE: XR chest 2V DATE OF EXAM: 06/22/2022 COMPARISON: Chest x-ray 06/12/2022 HISTORY: Cough, trauma and pain TECHNIQUE: Frontal and lateral views of the chest are obtained. FINDINGS: Patient is rotated. No evident pneumothorax. Arthropathy is present within the shoulders. Aorta is dense. Cardiac mediastinal silhouette is likely stable accounting for differences in techniq ue. There is persistent blunting the left costophrenic angle, basilar density is present. Lung volume s are low. Interstitium is prominent as on prior. There is increased AP diameter chest and flattening the hemidiaphragms consistent with COPD. Blunting of the posterior costophrenic angle is noted. IMPRESSION: Correlate for possible pulmonary venous hypertension and interstitial edema, left pleura l effusion, underlying emphysema
--- NOTE | 2022-06-22 09:35 | CT ---
EXAMINATION TYPE: CT brain cspine wo con DATE OF EXAM: 06/22/2022 COMPARISON: CT brain 06/06/2022, 03/20/2020 HISTORY: Fall, trauma and pain CT DLP: 2193.5 mGycm Automated exposure control for dose reduction was used. TECHNIQUE: CT scan of the head and cervical spine are performed without contrast. FINDINGS: There is no acute intracranial hemorrhage, mass effect, or midline shift identified. The ventricles and sulci are within normal limits in size. The globes are intact and the visualized sin uses are clear. There are cerebral vascular calcifications. Cortical atrophy is present. Periventricu lar white matter shows patchy low attenuation. Left frontal encephalomalacia is stable. Cervical spine is visualized in its entirety from C1 through upper thoracic levels and demonstrates s atisfactory alignment without evidence of acute fracture or dislocation. Axial images are somewhat li mited by technique. Prevertebral soft tissue appears within normal limits. The C1-C2 articulation is unremarkable. Stable degenerative disc changes are present. Bilateral pleural effusions are present. There is underlying emphysema. Comment interstitium is noted in the visualized portions the lungs. Arthropathy is present within the right shoulder. IMPRESSION: Exam is limited technically. 1. There is no acute fracture or dislocation evident in the cervical spine. 2. No acute intracranial hemorrhage, mass effect, or midline shift is seen, age-related changes of at rophy and chronic small vessel ischemia. 3. Correlate for possible congestive heart failure with bilateral pleural effusions.
[2022-06-22] MEDS ORDERED: FUROSEMIDE 40 MG TAB PO STA (09:48)
[2022-06-22] MEDS ORDERED: BENZONATATE 100 MG CAP PO STA (09:49)
[2022-06-22 10:00] VITALS: RESP 18
[2022-06-22 11:39] VITALS: BP 138/78; PULSE 78; TEMP 98.2
== END 2022-06-22 11:37 | disposition home or self-care (01) ==
LOC: EC 07:57
DX: S09.90XA Unspecified injury of head, initial encounter (principal); I25.10 Atherosclerotic heart disease of native coronary artery without angina pectoris; J44.9 Chronic obstructive pulmonary disease, unspecified; K21.9 Gastro-esophageal reflux disease without esophagitis; E78.5 Hyperlipidemia, unspecified; I50.9 Heart failure, unspecified; I13.2 Hypertensive heart and chronic kidney disease with heart failure and with stage 5 chronic kidney disease, or end stage renal disease; M19.90 Unspecified osteoarthritis, unspecified site; G47.33 Obstructive sleep apnea (adult) (pediatric); Z99.89 Dependence on other enabling machines and devices; Z79.51 Long term (current) use of inhaled steroids; Z79.899 Other long term (current) drug therapy; Z88.8 Allergy status to other drugs, medicaments and biological substances; Z79.01 Long term (current) use of anticoagulants; Z79.02 Long term (current) use of antithrombotics/antiplatelets; Z99.2 Dependence on renal dialysis; W18.39XA Other fall on same level, initial encounter
CPT/HCPCS: 99284 ×2; 96372 ×2; 71046; 72125; 70450; J1170

== ENCOUNTER 2023-02-28 16:22 | Inpatient (IN) | payer MEDICARE, BC, OTHER ==
--- NOTE | 2023-02-28 17:04 | ED ---
General Adult HPI - General Chief complaint: Altered Mental Status Stated complaint: Altered Mental Status Time Seen by Provider: 02/28/23 16:26 Source: EMS, RN notes reviewed, old records reviewed Mode of arrival: EMS Limitations: altered mental status - History of Present Illness Initial comments: 77-year-old male history of end-stage renal disease presents with confusion. History is obtained entirely from the paramedics who state that the patient is currently residing at [facility] and had been somewhat confused with a deterioration in mental status noted throughout the day today. The baseline mental status is not known currently. Patient was receiving hemodialysis and became less responsive. He was noted to be in the rapid A. fib and paramedics were called. He was transported to the emergency department with stable blood pressure in A. fib with an elevated heart rate. He does have a known history of atrial fibrillation. He did not receive a complete session of hemodialysis. - Related Data Home Medications Medication Instructions Recorded Confirmed Dutasteride [Avodart] 0.5 mg PO DAILY 11/11/14 06/04/22 Montelukast [Singulair] 10 mg PO HS 11/11/14 06/04/22 Beclomethasone Dipropionate [Qvar 2 puff INHALATION RT-BID 11/21/15 06/04/22 80 mcg/puff] Ergocalciferol [Vitamin D2 50,000 unit PO WE 11/21/15 06/04/22 (DRISDOL)] Isosorbide Mononitrate ER [Imdur] 30 mg PO DAILY 11/21/15 06/04/22 Febuxostat [Uloric] 80 mg PO DAILY 10/22/16 06/04/22 Lansoprazole 30 mg PO BID 10/22/16 06/04/22 Sevelamer [Renvela] 800 mg PO BID-W/MEALS 11/03/19 06/04/22 Albuterol Inhaler [Ventolin Hfa 2 puff INHALATION RT-QID PRN 02/11/20 06/04/22 Inhaler] Omalizumab [Xolair] 150 mg SQ Q28D 02/13/20 06/04/22 Docusate Sodium [Dok] 100 mg PO BID 03/17/20 06/04/22 Loratadine 10 mg PO HS 03/17/20 06/04/22 Lidocaine-Prilocaine Cream [Emla 1 applic TOPICAL DIRECTED 06/13/21 06/04/22 Cream 2.5%/2.5%] Nitroglycerin Sl Tabs [Nitrostat] 0.4 mg SUBLINGUAL Q5M PRN 06/13/21 06/04/22 Renavite 1 tab PO HS 06/13/21 06/04/22 Atorvastatin Calcium [Lipitor] 10 mg PO MOWEFR@2100 06/04/22 06/04/22 EPINEPHrine (Auto Inject) [Epipen] 0.3 mg PO ONCE PRN 06/04/22 06/04/22 Sevelamer [Renvela] 800 mg PO SUMOWEFR@1200 06/04/22 06/04/22 guaiFENesin [Mucinex] 1,200 mg PO Q12H PRN 06/04/22 06/04/22 Previous Rx's Medication Instructions Recorded Clopidogrel [Plavix] 75 mg PO DAILY tab 06/17/21 Rivaroxaban [Xarelto] 15 mg PO W/SUPPER tab 06/17/21 Ipratropium-Albuterol Nebulize 3 ml INHALATION RT-Q4H PRN each 06/10/22 [Duoneb 0.5 mg-3 mg/3 ml Soln] Metoprolol Tartrate [Lopressor] 50 mg PO TID tab 06/10/22 Moxifloxacin HCl [Avelox] 400 mg PO DAILY #7 tab 06/10/22 Benzonatate [Tessalon Perle] 200 mg PO Q8H PRN #15 capsule 06/22/22 Allergies Allergy/AdvReac Type Severity Reaction Status Date / Time diphenhydramine HCl AdvReac Confusion Verified 06/22/22 08:03 [From Benadryl] Review of Systems ROS Statement: Those systems with pertinent positive or pertinent negative responses have been documented in the HPI. ROS Other: All systems not noted in ROS Statement are negative. Past Medical History Past Medical History: Asthma, Coronary Artery Disease (CAD), Cancer, Heart Failure, COPD, GERD/Reflux, Hearing Disorder / Deafness, Hyperlipidemia, Hypertension, Osteoarthritis (OA), Prostate Disorder, Renal Disease, Sleep Apnea/CPAP/BIPAP Additional Past Medical History / Comment(s): ESRD with hemodialysis on //Thu, anemia, BPH, bronchitis, chronic low back pain, ankylosing spondylosis, gout in ankles in past, concepcion's esophagus, colon polyp, hemorrhoids, behind L ear basal cell skin cancer with removal, L hand squamous cell skin cancer removal, JF with Bipap, bilateral tinnitis, CHF per 2017 medical record but pt does not recall. History of Any Multi-Drug Resistant Organisms: None Reported Past Surgical History: Appendectomy, Cholecystectomy, Heart Catheterization, Heart Catheterization With Stent, Hernia Repair Additional Past Surgical History / Comment(s): Fistula L arm, EGDs, colonoscopies, abdominal hernia repair, ivette fundoplication, ruptured gal lbladder with christelle/appy and piece of bowel removed, hemorrhoidectomy, behind L ear lesion removed and another from L hand, bilateral cataract removals/lens implants. Past Anesthesia/Blood Transfusion Reactions: No Reported Reaction Additional Past Anesthesia/Blood Transfusion Reaction / Comment(s): . Date of Last Stent Placement:: 2003 Past Psychological History: No Psychological Hx Reported Smoking Status: Never smoker Past Alcohol Use History: None Reported Past Drug Use History: None Reported - Past Family History Mother Family Medical History: Cancer Additional Family Medical History / Comment(s): Mother at age 72 from BREAST CANCER Father Family Medical History: Myocardial Infarction ([place]) Additional Family Medical History / Comment(s): Father of a [place] at the age of 48 yrs. Sister(s) Family Medical History: Diabetes Mellitus Additional Family Medical History / Comment(s): Patient has one sister. Patient's son have any brothers. Patient has 2 children with no major medical problems. General Exam Limitations: altered mental status General appearance: lethargic Head exam: Present: atraumatic, normocephalic Eye exam: Present: normal appearance, PERRL ENT exam: Present: mucous membranes dry Neck exam: Present: normal inspection. Absent: tenderness, meningismus Respiratory exam: Present: rales, decreased breath sounds. Absent: respiratory distress Cardiovascular Exam: Present: tachycardia, irregular rhythm GI/Abdominal exam: Present: soft. Absent: distended, tenderness, guarding Extremities exam: Present: normal inspection Neurological exam: Present: motor sensory deficit (Patient able to move bilatera l hands and bilateral feet symmetrically but he is globally weak. He will follow commands.). Absent: alert, oriented X3 Skin exam: Present: warm, dry, intact. Absent: cyanosis, diaphoretic Course Vital Signs 02/28/23 02/28/23 16:25 17:31 Temperature 98.0 F Pulse Rate 111 H 94 Respiratory 18 18 Rate Blood Pressure 129/111 108/79 O2 Sat by Pulse 100 100 Oximetry Medical Decision Making - Medical Decision Making Was pt. sent in by a medical professional or institution (, PA, EMERGENCY DEPARTMENT TECHNICIAN, urgent care, hospital, or care home...) When possible be specific @ -[No] Did you speak to anyone other than the patient for history (EMS, parent, family, police, friend...)? What history was obtained from this source @ -Patient's is able to give a full history Did you review nursing and triage notes (agree or disagree)? Why? @ -[I reviewed and agree with nursing and triage notes] Were old charts reviewed (outside hosp., previous admission, EMS record, old EKG, old radiological studies, urgent care reports/EKG's, care home records)? Report findings @ -[No old charts were reviewed] Differential Diagnosis (chest pain, altered mental status, abdominal pain women, abdominal pain men, vaginal bleeding, weakness, fever, dyspnea, syncope, headache, dizziness, GI bleed, back pain, seizure, CVA, palpatations, mental health, musculoskeletal)? @ -[not applicable] EKG interpreted by me (3pts min.). @ -[EKG: Atrial fibrillation with a rate of 101 QRS duration 150, QTC 470, left bundle branch block. X-rays interpreted by me (1pt min.). @ -[CHF, consistent with fluid overload CT interpreted by me (1pt min.). @CT brain showing old infarct without acute findings U/S interpreted by me (1pt. min.). @ -[None done] What testing was considered but not performed or refused? (CT, X-rays, U/S, labs)? Why? @ -[None] What meds were considered but not given or refused? Why? @ -[None] Did you discuss the management of the patient with other professionals (professionals i.e. , KIRSTEN, EMERGENCY DEPARTMENT TECHNICIAN, lab, RT, psych nurse, social staff worker, research nutritionist, teacher, air crew officer, rifle case repairer)? Give summary @ -Dr. Kovacs Was smoking cessation discussed for >3mins.? @ -[No] Was critical care preformed (if so, how long)? @ -[No] Were there social determinants of health that impacted care today? How? (Homelessness, low income, unemployed, alcoholism, drug addiction, transportation, low edu. Level, literacy, decrease access to med. care, custodial, rehab)? @ -[No] Was there de-escalation of care discussed even if they declined (Discuss DNR or withdrawal of care, Hospice)? DNR status @ -[No] What co-morbidities impacted this encounter? (DM, HTN, Smoking, COPD, CAD, Cancer, CVA, ARF, Chemo, Hep., AIDS, mental health diagnosis, sleep apnea, morbid obesity)? @End-stage renal disease, prior CVA Was patient admitted / discharged? Hospital course, mention meds given and route, prescriptions, significant lab abnormalities, going to OR and other pertinent info. @ -77-year-old male with mental status changes, patient minimally responsive. He will follow dose very simple commands. His vital signs are stable. He is general weakness but is able to move his hands and feet symmetrically. History is obtained from the paramedics and the patient's was at bedside. He has a normal white blood cell count, he has some anemia which is stable. Undiagnosed new problem with uncertain prognosis? @ -[No] Drug Therapy requiring intensive monitoring for toxicity (Heparin, Nitro, Insulin, Cardizem)? @ -[No] Were any procedures done? @ -[No] Diagnosis/symptom? @Altered mental status Acute, or Chronic, or Acute on Chronic? @Acute Uncomplicated (without systemic symptoms) or Complicated (systemic symptoms)? @ -[default] Side effects of treatment? @ -[No] Exacerbation, Progression, or Severe Exacerbation? @ -[No] Poses a threat to life or bodily function? How? (Chest pain, [place], PA, pneumonia, PE, COPD, DKA, ARF, appy, cholecystitis, CVA, Diverticulitis, Homicidal, Suicidal, threat to staff... and all critical care pts) @ -[Yes - Lab Data Result diagrams: 02/28/23 17:29 02/28/23 17:29 Lab Results 02/28/23 02/28/23 02/28/23 Range/Units 17:29 17:29 17:29 WBC 6.8 (3.8-10.6) k/uL RBC 3.80 L (4.30-5.90) m/uL Hgb 11.5 L (13.0-17.5) gm/dL Hct 35.7 L (39.0-53.0) % MCV 94.0 (80.0-100.0) fL MCH 30.3 (25.0-35.0) pg MCHC 32.2 (31.0-37.0) g/dL RDW 16.7 H (11.5-15.5) % Plt Count 156 (150-450) k/uL MPV 8.9 Neutrophils % 80 % Lymphocytes % 10 % Monocytes % 7 % Eosinophils % 2 % Basophils % 0 % Neutrophils # 5.4 (1.3-7.7) k/uL Lymphocytes # 0.7 L (1.0-4.8) k/uL Monocytes # 0.5 (0-1.0) k/uL Eosinophils # 0.2 (0-0.7) k/uL Basophils # 0.0 (0-0.2) k/uL Hypochromasia Slight Anisocytosis Slight PT 13.1 H (9.0-12.0) sec INR 1.3 H (<1.2) APTT 27.0 (22.0-30.0) sec Sodium 138 (137-145) mmol/L Potassium 3.8 (3.5-5.1) mmol/L Chloride 99 (98-107) mmol/L Carbon Dioxide 34 H (22-30) mmol/L Anion Gap 5 mmol/L BUN 11 (9-20) mg/dL Creatinine 2.02 H (0.66-1.25) mg/dL Est GFR (CKD-EPI)AfAm 35 (>60 ml/min/1.73 sqM) Est GFR (CKD-EPI)NonAf 31 (>60 ml/min/1.73 sqM) Glucose 90 (74-99) mg/dL Calcium 9.5 (8.4-10.2) mg/dL Magnesium 1.7 (1.6-2.3) mg/dL Total Bilirubin 1.3 (0.2-1.3) mg/dL AST 19 (17-59) U/L ALT 11 (4-49) U/L Alkaline Phosphatase 72 (38-126) U/L Troponin I (0.000-0.034) ng/mL Total Protein 7.6 (6.3-8.2) g/dL Albumin 3.1 L (3.5-5.0) g/dL 02/28/23 Range/Units 17:29 WBC (3.8-10.6) k/uL RBC (4.30-5.90) m/uL Hgb (13.0-17.5) gm/dL Hct (39.0-53.0) % MCV (80.0-100.0) fL MCH (25.0-35.0) pg MCHC (31.0-37.0) g/dL RDW (11.5-15.5) % Plt Count (150-450) k/uL MPV Neutrophils % % Lymphocytes % % Monocytes % % Eosinophils % % Basophils % % Neutrophils # (1.3-7.7) k/uL Lymphocytes # (1.0-4.8) k/uL Monocytes # (0-1.0) k/uL Eosinophils # (0-0.7) k/uL Basophils # (0-0.2) k/uL Hypochromasia Anisocytosis PT (9.0-12.0) sec INR (<1.2) APTT (22.0-30.0) sec Sodium (137-145) mmol/L Potassium (3.5-5.1) mmol/L Chloride (98-107) mmol/L Carbon Dioxide (22-30) mmol/L Anion Gap mmol/L BUN (9-20) mg/dL Creatinine (0.66-1.25) mg/dL Est GFR (CKD-EPI)AfAm (>60 ml/min/1.73 sqM) Est GFR (CKD-EPI)NonAf (>60 ml/min/1.73 sqM) Glucose (74-99) mg/dL Calcium (8.4-10.2) mg/dL Magnesium (1.6-2.3) mg/dL Total Bilirubin (0.2-1.3) mg/dL AST (17-59) U/L ALT (4-49) U/L Alkaline Phosphatase (38-126) U/L Troponin I 0.018 (0.000-0.034) ng/mL Total Protein (6.3-8.2) g/dL Albumin (3.5-5.0) g/dL Disposition Clinical Impression: Altered mental status, ESRD (end stage renal disease) on dialysis Disposition: ADMITTED IP TO THIS HOSP Condition: Stable Is patient prescribed a controlled substance at d/c from ED?: No Referrals: Jyotsna Kovacs MD [Primary Care Provider] - 1-2 days Time of Disposition: 18:50
--- NOTE | 2023-02-28 17:26 | XR ---
EXAMINATION TYPE: XR chest 1V portable DATE OF EXAM: 02/28/2023 COMPARISON: 06/22/2022 INDICATION: Acute mental status changes TECHNIQUE: Single frontal view of the chest is obtained. FINDINGS: The heart size is probably prominent. The pulmonary vasculature is prominent. Diffuse perihilar infiltrates are present. Greater infiltrates are in the lower lung sanchez with part ial silhouetting of the diaphragms. Small right pleural effusion appears to be present. IMPRESSION: 1. Clinical correlation recommended for congestive heart failure and pulmonary edema.
--- NOTE | 2023-02-28 17:31 | CT ---
EXAMINATION TYPE: CT brain wo con DATE OF EXAM: 02/28/2023 COMPARISON: 06/22/2022 INDICATION: AMS DLP: 1276.4 mGycm, Automated exposure control for dose reduction was used. CONTRAST: None CT of the brain is performed utilizing 3 mm thick sections through the posterior fossa and 3 mm thick sections through the remaining calvarium. Study is performed within 24 hours of arrival to the hosp ital. There is some limitation due to density causing limitation greater in the frontal regions. No abnormal hyperdensity is present to suggest an acute intracranial hemorrhage. No mass lesion is evident. No acute infarcts are evident. There is an old infarct in the left frontal parietal region. This was present in 2021. Mild ex vacuo effect is sulci in this region. Ventricles and sulci are somewhat prominent for the patient age. Paranasal sinuses and mastoid air cells within the [id number] are clear. IMPRESSIONS: 1. Old left frontoparietal infarct. 2. Age-related atrophy. 3. No acute intracranial process identified. Follow-up MRI can be performed as clinically indicated
[2023-02-28 17:40] LABS: Anisocytosis Slight; Basophils % (A) 0 %; Eosinophils # (A) 0.2 k/uL (0-0.7); Eosinophils % (A) 2 %; HCT 35.7 % (39.0-53.0); HGB 11.5 gm/dL (13.0-17.5); Hypochromasia Slight; Lymphocytes # (A) 0.7 k/uL (1.0-4.8); Lymphocytes % (A) 10 %; MCH 30.3 pg (25.0-35.0); MCHC 32.2 g/dL (31.0-37.0); Mean Platelet Volume 8.9; Monocytes # (A) 0.5 k/uL (0-1.0); Monocytes % (A) 7 %; Neutrophils # (A) 5.4 k/uL (1.3-7.7); Neutrophils % (A) 80 %; Platelet Count 156 k/uL (150-450); RDW 16.7 % (11.5-15.5); WBC 6.8 k/uL (3.8-10.6)
[2023-02-28 17:49] LABS: INR 1.3 (<1.2); Prothrombin Time 13.1 sec (9.0-12.0)
[2023-02-28 17:52] LABS: ALT 11 U/L (4-49); AST 19 U/L (17-59); African American GFR (CKD) 35 (>60 ml/min/1.73 sqM); Albumin 3.1 g/dL (3.5-5.0); Alkaline Phosphatase 72 U/L (38-126); Anion Gap 5 mmol/L; Blood Urea Nitrogen 11 mg/dL (9-20); Calcium 9.5 mg/dL (8.4-10.2); Carbon Dioxide 34 mmol/L (22-30); Chloride 99 mmol/L (98-107); Glucose 90 mg/dL (74-99); Magnesium 1.7 mg/dL (1.6-2.3); Non-African American GFR(CKD) 31 (>60 ml/min/1.73 sqM); Potassium 3.8 mmol/L (3.5-5.1); Sodium 138 mmol/L (137-145); Total Bilirubin 1.3 mg/dL (0.2-1.3); Total Protein 7.6 g/dL (6.3-8.2)
[2023-02-28] MEDS ORDERED: NALOXONE 0.4 MG/ML 1 ML VIAL IV PRN (18:45)
[2023-02-28 19:59] LABS: Glucose,Whole Blood 101 mg/dL (70-110)
[2023-02-28 20:13] LABS: VBG PH 7.49 (7.31-7.41)
[2023-02-28] MEDS ORDERED: ACETAMINOPHEN TAB 500 MG TAB PO STA (21:26)
[2023-03-01] MEDS ORDERED: ALBUTEROL NEBULIZED 2.5 MG/3 ML INHALATION PRN (09:57)
[2023-03-01] MEDS ORDERED: CHOLESTYRAMINE (WITH SUGAR) 4 GM PACKET PO PRN (09:57)
--- NOTE | 2023-03-01 11:31 | P.CNNES ---
History of Present Illness Consult date: 03/01/23 Requesting physician: Logan Pham Reason for Consult: AMS History of Present Illness: This is a 77-year-old gentleman with some of his history consists of left frontal stroke, atrial fibrillation on Xarelto, coronary artery disease status post stent, heart failure, hypertension, hyperlipidemia, end-stage renal disease on dialysis, deafness who presented to the emergency department on 02/28/2023 because of confusion. History is obtained from medical record as well as the patient's nurse. Per the ED note is seems the patient the resides at [facility] and was somewhat confused throughout the day yesterday in which she was less responsive. Seems the he was in A. fib yesterday and he is known to have A. fib and he did not received the incomplete session of hemodialysis per ED note. Unknown last normal and unknown patient baseline. Per the patient nurse yet he was unresponsive yesterday at his facility in the ED and when he presented the to the floors. The nurse did not appreciate any jerk in of any extremity, foaming around the mouth or any fixed gaze. Some of the workup during his hospital visit consisted of: Patient is afebrile so far. White blood cell is within normal limits. Creatinine is 2.2, carbon dioxide is 34 and albumin is 31 otherwise rest of the Chem-[address] of the head is reported as old left frontal parietal infarct. Age-related atrophy. No acute intracranial processes identified. Follow-up MRI can be performed as clinically indicated. I personally reviewed that a CT and I compared to his previous CTs and is seems the patient has an old left frontal stroke. Otherwise no acute or subacute changes. EKG is reported as atrial fibrillation with the RVR. Review of Systems Review of system is limited but the pertinent positive and negative aspirate HPI. Past Medical History Past Medical History: Asthma, Coronary Artery Disease (CAD), Cancer, Heart Failure, COPD, GERD/Reflux, Hearing Disorder / Deafness, Hyperlipidemia, Hypertension, Osteoarthritis (OA), Prostate Disorder, Renal Disease, Sleep Apnea/CPAP/BIPAP Additional Past Medical History / Comment(s): ESRD with hemodialysis on //Thu, anemia, BPH, bronchitis, chronic low back pain, ankylosing spondylosis, gout in ankles in past, concepcion's esophagus, colon polyp, hemorrhoids, behind L ear basal cell skin cancer with removal, L hand squamous cell skin cancer removal, JF, bilateral tinnitis, CHF History of Any Multi-Drug Resistant Organisms: None Reported Past Surgical History: Appendectomy, Cholecystectomy, Heart Catheterization, Heart Catheterization With Stent, Hernia Repair Additional Past Surgical History / Comment(s): Fistula L arm, EGDs, colonoscopies, abdominal hernia repair, ivette fundoplication, ruptured gallbladder with christelle/appy and piece of bowel removed, hemorrhoidectomy, behind L ear lesion removed and another from L hand, bilateral cataract removals/lens implants. Past Anesthesia/Blood Transfusion Reactions: No Reported Reaction Additional Past Anesthesia/Blood Transfusion Reaction / Comment(s): . Date of Last Stent Placement:: 2003 Past Psychological History: No Psychological Hx Reported Additional Psychological History / Comment(s): Pt resides with his spouse. Smoking Status: Never smoker Past Alcohol Use History: None Reported Additional Past Alcohol Use History / Comment(s): Patient is a lifelong nonsmoker, no marijuana, no illicit drug use, no alcohol use. Patient is and lives at home with his . 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 Past Drug Use History: None Reported - Past Family History Mother Family Medical History: Cancer Additional Family Medical History / Comment(s): Mother at age 72 from BREAST CANCER Father Family Medical History: Myocardial Infarction (SC) Additional Family Medical History / Comment(s): Father of a SC at the age of 48 yrs. Sister(s) Family Medical History: Diabetes Mellitus Additional Family Medical History / Comment(s): Patient has one sister. Patient's son have any brothers. Patient has 2 children with no major medical problems. Medications and Allergies Home Medications Medication Instructions Recorded Confirmed Type Dutasteride [Avodart] 0.5 mg PO DAILY 11/11/14 02/28/23 History Montelukast [Singulair] 10 mg PO HS 11/11/14 02/28/23 History Beclomethasone Dipropionate [Qvar 2 puff INHALATION RT-BID 11/21/15 02/28/23 History 80 mcg/puff] Isosorbide Mononitrate ER [Imdur] 30 mg PO DAILY 11/21/15 02/28/23 History Febuxostat [Uloric] 80 mg PO DAILY 10/22/16 02/28/23 History Lansoprazole 30 mg PO BID 10/22/16 02/28/23 History Albuterol Inhaler [Ventolin Hfa 2 puff INHALATION RT-QID PRN 02/11/20 02/28/23 History Inhaler] Loratadine 10 mg PO DAILY 03/17/20 02/28/23 History Lidocaine-Prilocaine Cream [Emla 1 applic TOPICAL DAILY PRN 06/13/21 02/28/23 History Cream 2.5%/2.5%] Nitroglycerin Sl Tabs [Nitrostat] 0.4 mg SUBLINGUAL Q5M PRN 06/13/21 02/28/23 History Renavite 1 tab PO HS 06/13/21 02/28/23 History Clopidogrel [Plavix] 75 mg PO DAILY tab 06/17/21 02/28/23 Rx Atorvastatin Calcium [Lipitor] 10 mg PO MOWEFR@2100 06/04/22 02/28/23 History Acetaminophen Tab [Tylenol] 650 mg PO Q4H PRN 02/28/23 02/28/23 History Apixaban [Eliquis] 2.5 mg PO BID 02/28/23 02/28/23 History Budesonide [Pulmicort] 0.5 mg INHALATION RT-BID 02/28/23 02/28/23 History Cholestyramine (with Sugar) 4 gm PO DAILY PRN 02/28/23 02/28/23 History [Cholestyramine Packet] Metoprolol Tartrate [Lopressor] 50 mg PO BID 02/28/23 02/28/23 History Midodrine HCl [ProAmatine] 10 mg PO TID 02/28/23 02/28/23 History Potassium Citrate [Potassium 10 meq PO DAILY 02/28/23 02/28/23 History Citrate ER] Vitamin B Complex 1 cap PO DAILY 02/28/23 02/28/23 History Allergies Allergy/AdvReac Type Severity Reaction Status Date / Time diphenhydramine HCl AdvReac Confusion Verified 02/28/23 20:53 [From Benadryl] Physical Examination - Vital Signs Vital Signs: Vital Signs Temp Pulse Pulse Resp BP BP Pulse Ox 03/01/23 07:15 99.0 F 118 H 18 119/79 97 03/01/23 02:42 98.9 F 80 18 99/62 98 03/01/23 00:00 18 02/28/23 22:59 98.5 F 72 18 120/69 99 02/28/23 22:00 75 132/65 100 02/28/23 21:00 93 20 104/57 100 02/28/23 20:00 73 122/64 100 02/28/23 19:18 73 18 114/78 100 02/28/23 18:50 77 16 118/66 99 02/28/23 17:31 94 18 108/79 100 02/28/23 16:25 98.0 F 111 H 18 129/111 100 Intake and Output 02/28/23 03/01/23 03/01/23 22:59 06:59 14:59 Intake Total 200 Balance 200 Intake: Oral 200 Other: Voiding Method Diaper # Bowel Movements 1 Weight 63.503 kg GENERAL: The patient is lying in bed and does not appear in acute distress. NEUROLOGICAL: Limited because condition/cooperation. Higher mental function: The patient is drowsy but is awakeable to voice. He did not respond to self, place or time. He is following simple commands (thumbs up, sticking tongue out, wiggling toes). He kept on saying "I don't know". Language is limited. Cranial nerves: The pupils are round, equal and reactive to light. Is tracking throughout the room. No facial weakness. No dysarthria from limited language. Motor: The strength is limited in assessment but was able to lift bilateral uppers above gravity. He had his legs crossed and was wiggling his toes symete rically. Cerebellum: Unable to assess. Sensation: Unable to assess. Reflexes (right/left): Unable to assess. Plantars are mute bilaterally. Results - Laboratory Findings CBC and BMP: 02/28/23 17:29 02/28/23 17:29 Abnormal Lab Findings: Abnormal Labs 02/28/23 02/28/23 02/28/23 17:29 17:29 17:29 RBC 3.80 L Hgb 11.5 L Hct 35.7 L RDW 16.7 H Lymphocytes # 0.7 L PT 13.1 H INR 1.3 H VBG pH VBG HCO3 Carbon Dioxide 34 H Creatinine 2.02 H Albumin 3.1 L 02/28/23 19:55 RBC Hgb Hct RDW Lymphocytes # PT INR VBG pH 7.49 H VBG HCO3 31 H Carbon Dioxide Creatinine Albumin Assessment and Plan Assessment: This is a 77-year-old gentleman with history of left frontal stroke, atrial fibrillation on Xarelto and multiple medical problems who presented from his nursing facility because of confusion. Seems she did not complete his dialysis per the ED note and the on presentation to our ED he was in A. fib Encephalopathy of unknown etiology. Rule out new ischemic stroke versus underlying new onset seizure especially with a history of old stroke that can be the focus. Lastly rule out any other conditions such as metabolic stroke or seizure is ruled out History of old left frontal stroke History of atrial fibrillation on Xarelto ESRD on dialysis History of CAD s/p stent Deafness Sleep Apnea Chronic back pain CHF according to records History of Hypertension Hyperlipidemia Plan: I will get repeat CT head tomorrow A.M. (per nurse, his stated cannot obtain MRI and was was attempted multiple times in the past) to rule out any underlying the new acute or subacute stroke. Ordered carotid duplex and lipid panel. Ordered routine EEG to rule out any underlying seizure. Ordered TSH, ammonia level, folate, vitamin B12 to rule out other causes of confusion. Primary has started the patient on Ahlquist 2.5 mg a tablet twice a day as well as Plavix 75 mg daily. Is on Lipitor 10mg M, Thu, Thursday The patient does have a stroke recommended 2-D echo. Every 4 hours neuro checks Placed on cardiac monitoring Consulted PT OT and PIER MASTER ASSISTANT We'll defer the rest of the medical management to primary team For DVT prophylaxis is on Vanita course The plan was discussed with the patient nurse as well as the primary attending Thank you for the consultation. Dr. Hudson will start neurology service tomorrow A.M. Time with Patient: Greater than 30
[2023-03-01] MEDS ORDERED: METOPROLOL TARTRATE 50 MG TAB PO STA (13:28)
[2023-03-01] MEDS: MIDODRINE 5 MG TAB PO SCH ×2 (13:33→17:51)
--- NOTE | 2023-03-01 13:37 | US ---
EXAMINATION TYPE: US carotid duplex BILAT DATE OF EXAM: 03/01/2023 COMPARISON: NONE CLINICAL INDICATION: Male, 77 years old with history of stroke; TECHNIQUE: Carotid duplex ultrasound examination. Indirect Doppler criteria was utilized. 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 Exam performed out of sequence due to above reasons. No significant stenosis identif ied. IMPRESSION: Limited study. No hemodynamically significant stenosis appreciated. Difficulty in visualizing vertebr al flow. Criteria for Assigning % of Stenosis / Diameter reduction (Estimation based on the indirect measurements of the internal carotid artery velocities (ICA PSV). 1. Normal (no stenosis)=ICA PSV < 125 cm/s: ratio < 2.0: ICA EDV<40 cm/s. 2. Less than 50% stenosis=ICA PSV < 125 cm/s: ratio < 2.0: ICA EDV<40 cm/s. 3. 50 to 69% stenosis=ICA PSV of 125 to 230 cm/s: ration 2.0 ? 4.0: ICA EDV 40-100 cm/s. 4. Greater than 70% stenosis to near occlusion= ICA PSV > 230 cm/s: ratio > 4.0: ICA EDV > 100 cm/s. 5. Near occlusion= ICA PSV velocities may be low or undetectable: variable ratio and ICA EDV. 6. Total occlusion=unable to detect flow.
--- NOTE | 2023-03-01 14:30 | P.HPIM ---
History of Present Illness H&P Date: 03/01/23 History of present illness; patient is a 77-year-old gentleman with past medical significant for end-stage renal disease on dialysis, chronic atrial fibrillation on Eliquis who presented to the ER because of altered mental status. Patient is a poor historian, currently residing at [facility], brought in because of increasing confusion. Patient was receiving dialysis when he became less responsive, EMS was called who found the patient to be in A. fib. Patient was transferred to the ER. Initial lab work in the ER showed WBC 6.8, hemoglobin 11.5, platelet count 156, sodium 138, potassium 3.8, BUN 11, creatinine 2.02 Chest x-ray concerning for congestive heart failure and pulmonary edema CT brain showed old left frontoparietal infarct, age-related atrophy, no acute intracranial process. REVIEW OF SYSTEMS: Review of systems cannot be obtained because of patient current mental status PHYSICAL EXAMINATION: GENERAL: The patient is alert and oriented x3, not in any acute distress. Well developed, well nourished. HEENT: Pupils are round and equally reacting to light. EOMI. No scleral icterus. No conjunctival pallor. Normocephalic, atraumatic. No pharyngeal erythema. No thyromegaly. CARDIOVASCULAR: S1 and S2 present. No murmurs, rubs, or gallops. PULMONARY: Chest is clear to auscultation, no wheezing or crackles. ABDOMEN: Soft, nontender, nondistended, normoactive bowel sounds. No palpable organomegaly. MUSCULOSKELETAL: No joint swelling or deformity. EXTREMITIES: No cyanosis, clubbing, or pedal edema. NEUROLOGICAL: Alert to self, moving all extremities, no facial droop or slurred speech SKIN: No rashes. Assessment and plan Acute metabolic encephalopathy End-stage renal disease on dialysis Atrial fibrillation with RVR Dyslipidemia COPD Hypertension Plan; Monitor vital signs Monitor CBC Monitor CMP Continue telemetry monitoring Resume Eliquis Continue Lopressor Ordered ultrasound of carotids Ordered EEG Resume home meds Consult neurology Consult nephrology DVT prophylaxis: Past Medical History Past Medical History: Asthma, Coronary Artery Disease (CAD), Cancer, Heart Failure, COPD, GERD/Reflux, Hearing Disorder / Deafness, Hyperlipidemia, Hypertension, Osteoarthritis (OA), Prostate Disorder, Renal Disease, Sleep Apnea/CPAP/BIPAP Additional Past Medical History / Comment(s): ESRD with hemodialysis on //Thu, anemia, BPH, bronchitis, chronic low back pain, ankylosing spondylosis, gout in ankles in past, concepcion's esophagus, colon polyp, hemorrhoids, behind L ear basal cell skin cancer with removal, L hand squamous cell skin cancer removal, JF, bilateral tinnitis, CHF History of Any Multi-Drug Resistant Organisms: None Reported Past Surgical History: Appendectomy, Cholecystectomy, Heart Catheterization, Heart Catheterization With Stent, Hernia Repair Additional Past Surgical History / Comment(s): Fistula L arm, EGDs, colonoscopies, abdominal hernia repair, ivette fundoplication, ruptured gallbladder with christelle/appy and piece of bowel removed, hemorrhoidectomy, behind L ear lesion removed and another from L hand, bilateral cataract removals/lens implants. Past Anesthesia/Blood Transfusion Reactions: No Reported Reaction Additional Past Anesthesia/Blood Transfusion Reaction / Comment(s): . Date of Last Stent Placement:: 2003 Past Psychological History: No Psychological Hx Reported Additional Psychological History / Comment(s): Pt resides with his spouse. Smoking Status: Never smoker Past Alcohol Use History: None Reported Additional Past Alcohol Use History / Comment(s): Patient is a lifelong nonsmoker, no marijuana, no illicit drug use, no alcohol use. Patient is and lives at home with his . 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 Past Drug Use History: None Reported - Past Family History Mother Family Medical History: Cancer Additional Family Medical History / Comment(s): Mother at age 72 from BREAST CANCER Father Family Medical History: Myocardial Infarction (MS) Additional Family Medical History / Comment(s): Father of a MS at the age of 48 yrs. Sister(s) Family Medical History: Diabetes Mellitus Additional Family Medical History / Comment(s): Patient has one sister. Patient's son have any brothers. Patient has 2 children with no major medical problems. Medications and Allergies Home Medications Medication Instructions Recorded Confirmed Type Dutasteride [Avodart] 0.5 mg PO DAILY 11/11/14 02/28/23 History Montelukast [Singulair] 10 mg PO HS 11/11/14 02/28/23 History Beclomethasone Dipropionate [Qvar 2 puff INHALATION RT-BID 11/21/15 02/28/23 History 80 mcg/puff] Isosorbide Mononitrate ER [Imdur] 30 mg PO DAILY 11/21/15 02/28/23 History Febuxostat [Uloric] 80 mg PO DAILY 10/22/16 02/28/23 History Lansoprazole 30 mg PO BID 10/22/16 02/28/23 History Albuterol Inhaler [Ventolin Hfa 2 puff INHALATION RT-QID PRN 02/11/20 02/28/23 History Inhaler] Loratadine 10 mg PO DAILY 03/17/20 02/28/23 History Lidocaine-Prilocaine Cream [Emla 1 applic TOPICAL DAILY PRN 06/13/21 02/28/23 History Cream 2.5%/2.5%] Nitroglycerin Sl Tabs [Nitrostat] 0.4 mg SUBLINGUAL Q5M PRN 06/13/21 02/28/23 History Renavite 1 tab PO HS 06/13/21 02/28/23 History Clopidogrel [Plavix] 75 mg PO DAILY tab 06/17/21 02/28/23 Rx Atorvastatin Calcium [Lipitor] 10 mg PO MOWEFR@2100 06/04/22 02/28/23 History Acetaminophen Tab [Tylenol] 650 mg PO Q4H PRN 02/28/23 02/28/23 History Apixaban [Eliquis] 2.5 mg PO BID 02/28/23 02/28/23 History Budesonide [Pulmicort] 0.5 mg INHALATION RT-BID 02/28/23 02/28/23 History Cholestyramine (with Sugar) 4 gm PO DAILY PRN 02/28/23 02/28/23 History [Cholestyramine Packet] Metoprolol Tartrate [Lopressor] 100 mg PO BID 02/28/23 03/01/23 History Midodrine HCl [ProAmatine] 10 mg PO TID 02/28/23 02/28/23 History Potassium Citrate [Potassium 10 meq PO DAILY 02/28/23 02/28/23 History Citrate ER] Vitamin B Complex 1 cap PO DAILY 02/28/23 02/28/23 History Loperamide HCl [Imodium A-D] 2 mg PO QID PRN 03/01/23 03/01/23 History fluocinolone acetonide oiL 1 applic BOTH EARS BID PRN 03/01/23 03/01/23 History [Dermotic] Allergies Allergy/AdvReac Type Severity Reaction Status Date / Time diphenhydramine HCl AdvReac Confusion Verified 02/28/23 20:53 [From Benadryl] Physical Exam Vitals: Vital Signs Temp Pulse Pulse Resp BP BP Pulse Ox 03/01/23 07:15 99.0 F 118 H 18 119/79 97 03/01/23 02:42 98.9 F 80 18 99/62 98 03/01/23 00:00 18 02/28/23 22:59 98.5 F 72 18 120/69 99 02/28/23 22:00 75 132/65 100 02/28/23 21:00 93 20 104/57 100 02/28/23 20:00 73 122/64 100 02/28/23 19:18 73 18 114/78 100 02/28/23 18:50 77 16 118/66 99 02/28/23 17:31 94 18 108/79 100 02/28/23 16:25 98.0 F 111 H 18 129/111 100 Intake and Output 02/28/23 03/01/23 03/01/23 22:59 06:59 14:59 Intake Total 200 Balance 200 Intake: Oral 200 Other: Voiding Method Diaper # Bowel Movements 1 Weight 63.503 kg Results CBC & Chem 7: 02/28/23 17:29 02/28/23 17:29 Labs: Abnormal Lab Results - Last 24 Hours (Table) 02/28/23 02/28/23 02/28/23 Range/Units 17:29 17:29 17:29 RBC 3.80 L (4.30-5.90) m/uL Hgb 11.5 L (13.0-17.5) gm/dL Hct 35.7 L (39.0-53.0) % RDW 16.7 H (11.5-15.5) % Lymphocytes # 0.7 L (1.0-4.8) k/uL PT 13.1 H (9.0-12.0) sec INR 1.3 H (<1.2) VBG pH (7.31-7.41) VBG HCO3 (24-28) mmol/L Carbon Dioxide 34 H (22-30) mmol/L Creatinine 2.02 H (0.66-1.25) mg/dL Albumin 3.1 L (3.5-5.0) g/dL 02/28/23 Range/Units 19:55 RBC (4.30-5.90) m/uL Hgb (13.0-17.5) gm/dL Hct (39.0-53.0) % RDW (11.5-15.5) % Lymphocytes # (1.0-4.8) k/uL PT (9.0-12.0) sec INR (<1.2) VBG pH 7.49 H (7.31-7.41) VBG HCO3 31 H (24-28) mmol/L Carbon Dioxide (22-30) mmol/L Creatinine (0.66-1.25) mg/dL Albumin (3.5-5.0) g/dL Thrombosis Risk Factor Assmnt - Choose All That Apply Any of the Below Risk Factors Present?: Yes Each Factor Represents 1 point: Medical pt on bed rest Other Risk Factors: Yes Each Risk Factor Represents 3 Points: Age 75 years or older Thrombosis Risk Factor Assessment Total Risk Factor Score: 4 Thrombosis Risk Factor Assessment Level: Moderate Risk
--- NOTE | 2023-03-01 16:22 | P.NPCON ---
History of Present Illness - Reason for Consult Consult date: 03/01/23 end stage renal disease - Chief Complaint Encephalopathy - History of Present Illness Coming to the hospital from [facility] with the above complaints. MWF dialysis, well left upper arm aVF. He was in dialysis center yesterday had A. fib with RVR and became confused and was sent to the hospital. Unable to get history from him, sleepy today. Review of Systems Constitutional: Reports as per HPI Past Medical History Past Medical History: Asthma, Coronary Artery Disease (CAD), Cancer, Heart Failure, COPD, GERD/Reflux, Hearing Disorder / Deafness, Hyperlipidemia, Hypertension, Osteoarthritis (OA), Prostate Disorder, Renal Disease, Sleep Apnea/CPAP/BIPAP Additional Past Medical History / Comment(s): ESRD with hemodialysis on //Thu, anemia, BPH, bronchitis, chronic low back pain, ankylosing spondylosis, gout in ankles in past, concepcion's esophagus, colon polyp, hemorrhoids, behind L ear basal cell skin cancer with removal, L hand squamous cell skin cancer removal, JF, bilateral tinnitis, CHF History of Any Multi-Drug Resistant Organisms: None Reported Past Surgical History: Appendectomy, Cholecystectomy, Heart Catheterization, Heart Catheterization With Stent, Hernia Repair Additional Past Surgical History / Comment(s): Fistula L arm, EGDs, colonoscopies, abdominal hernia repair, ivette fundoplication, ruptured gallbladder with christelle/appy and piece of bowel removed, hemorrhoidectomy, behind L ear lesion removed and another from L hand, bilateral cataract removals/lens implants. Past Anesthesia/Blood Transfusion Reactions: No Reported Reaction Additional Past Anesthesia/Blood Transfusion Reaction / Comment(s): . Date of Last Stent Placement:: 2003 Past Psychological History: No Psychological Hx Reported Additional Psychological History / Comment(s): Pt resides with his spouse. Smoking Status: Never smoker Past Alcohol Use History: None Reported Additional Past Alcohol Use History / Comment(s): Patient is a lifelong nonsmoker, no marijuana, no illicit drug use, no alcohol use. Patient is and lives at home with his . 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 Past Drug Use History: None Reported - Past Family History Mother Family Medical History: Cancer Additional Family Medical History / Comment(s): Mother at age 72 from BREAST CANCER Father Family Medical History: Myocardial Infarction (OK) Additional Family Medical History / Comment(s): Father of a OK at the age of 48 yrs. Sister(s) Family Medical History: Diabetes Mellitus Additional Family Medical History / Comment(s): Patient has one sister. Patient's son have any brothers. Patient has 2 children with no major medical problems. Medications and Allergies Home Medications Medication Instructions Recorded Confirmed Type Dutasteride [Avodart] 0.5 mg PO DAILY 11/11/14 02/28/23 History Montelukast [Singulair] 10 mg PO HS 11/11/14 02/28/23 History Beclomethasone Dipropionate [Qvar 2 puff INHALATION RT-BID 11/21/15 02/28/23 History 80 mcg/puff] Isosorbide Mononitrate ER [Imdur] 30 mg PO DAILY 11/21/15 02/28/23 History Febuxostat [Uloric] 80 mg PO DAILY 10/22/16 02/28/23 History Lansoprazole 30 mg PO BID 10/22/16 02/28/23 History Albuterol Inhaler [Ventolin Hfa 2 puff INHALATION RT-QID PRN 02/11/20 02/28/23 History Inhaler] Loratadine 10 mg PO DAILY 03/17/20 02/28/23 History Lidocaine-Prilocaine Cream [Emla 1 applic TOPICAL DAILY PRN 06/13/21 02/28/23 History Cream 2.5%/2.5%] Nitroglycerin Sl Tabs [Nitrostat] 0.4 mg SUBLINGUAL Q5M PRN 06/13/21 02/28/23 History Renavite 1 tab PO HS 06/13/21 02/28/23 History Clopidogrel [Plavix] 75 mg PO DAILY tab 06/17/21 02/28/23 Rx Atorvastatin Calcium [Lipitor] 10 mg PO MOWEFR@2100 06/04/22 02/28/23 History Acetaminophen Tab [Tylenol] 650 mg PO Q4H PRN 02/28/23 02/28/23 History Apixaban [Eliquis] 2.5 mg PO BID 02/28/23 02/28/23 History Budesonide [Pulmicort] 0.5 mg INHALATION RT-BID 02/28/23 02/28/23 History Cholestyramine (with Sugar) 4 gm PO DAILY PRN 02/28/23 02/28/23 History [Cholestyramine Packet] Metoprolol Tartrate [Lopressor] 100 mg PO BID 02/28/23 03/01/23 History Midodrine HCl [ProAmatine] 10 mg PO TID 02/28/23 02/28/23 History Potassium Citrate [Potassium 10 meq PO DAILY 02/28/23 02/28/23 History Citrate ER] Vitamin B Complex 1 cap PO DAILY 02/28/23 02/28/23 History Loperamide HCl [Imodium A-D] 2 mg PO QID PRN 03/01/23 03/01/23 History fluocinolone acetonide oiL 1 applic BOTH EARS BID PRN 03/01/23 03/01/23 History [Dermotic] Allergies Allergy/AdvReac Type Severity Reaction Status Date / Time diphenhydramine HCl AdvReac Confusion Verified 02/28/23 20:53 [From Benadryl] Physical Exam Vitals: Vital Signs Temp Pulse Pulse Resp BP BP Pulse Ox 03/01/23 11:11 98.2 F 117 H 16 126/84 92 L 03/01/23 07:15 99.0 F 118 H 18 119/79 97 03/01/23 02:42 98.9 F 80 18 99/62 98 03/01/23 00:00 18 02/28/23 22:59 98.5 F 72 18 120/69 99 02/28/23 22:00 75 132/65 100 02/28/23 21:00 93 20 104/57 100 02/28/23 20:00 73 122/64 100 02/28/23 19:18 73 18 114/78 100 02/28/23 18:50 77 16 118/66 99 02/28/23 17:31 94 18 108/79 100 02/28/23 16:25 98.0 F 111 H 18 129/111 100 Intake and Output 03/01/23 03/01/23 03/01/23 06:59 14:59 22:59 Intake Total 200 Balance 200 Intake: Oral 200 Other: Voiding Method Diaper # Bowel Movements 1 No acute distress S1-S2 heard Lungs clear Left upper arm aVF No edema Results - Lab Results Most recent lab results Calcium 9.5 mg/dL (8.4-10.2) 02/28/23 17:29 Magnesium 1.7 mg/dL (1.6-2.3) 02/28/23 17:29 02/28/23 17:29 02/28/23 17:29 Assessment and Plan Assessment: #1 encephalopathy cause unclear. #2 ESRD on hemodialysis, MWF schedule #3 anemia with ESRD #4 metabolic bone disease #5 A. fib with RVR Plan: #1 hemodialysis tomorrow as per outpatient schedule. #2 ESRD medications
[2023-03-01] MEDS: FLUTICASONE 110 MCG INHALER INHALATION SCH (20:53)
[2023-03-01] MEDS ORDERED: RENAVITE PO SCH (21:00)
[2023-03-01] MEDS ORDERED: METOPROLOL TARTRATE 50 MG TAB PO SCH (21:00)
[2023-03-01] MEDS: METOPROLOL TARTRATE 50 MG TAB PO SCH (21:05)
[2023-03-01] MEDS: APIXABAN 2.5 MG TABLET PO SCH (21:06)
[2023-03-01] MEDS: MONTELUKAST 10 MG TAB PO SCH (21:06)
[2023-03-01 23:42] LABS: Chol/HDL Ratio 2.53 Ratio; LDL Cholesterol,Calculated 45.3 mg/dL (0.0-131.0); VLDL Calculation 13.92 mg/dL (5.00-40.00)
[2023-03-02] MEDS: CLOPIDOGREL 75 MG TAB PO SCH (08:22)
[2023-03-02] MEDS: LORATADINE 10 MG TAB PO SCH (08:22)
[2023-03-02] MEDS: APIXABAN 2.5 MG TABLET PO SCH ×2 (08:22→22:22)
[2023-03-02] MEDS: allopurinoL 100 MG TAB PO SCH (08:22)
[2023-03-02] MEDS: FOLIC ACID-VIT B COMPLEX-VIT C 1 CAP PO SCH (08:23)
[2023-03-02] MEDS: PANTOPRAZOLE 40 MG TABLET PO SCH (08:23)
[2023-03-02] MEDS: MIDODRINE 5 MG TAB PO SCH ×3 (08:23→16:56)
[2023-03-02 09:28] LABS: Basophils # (A) 0.02 X 10*3/uL (0.00-0.10); Basophils % (A) 0.3 %; Eosinophils % (A) 2.9 %; HCT 33.6 % (39.6-50.0); HGB 10.4 d/dL (12.0-15.0); Lymphocytes % (A) 13.3 %; MCH 29.5 pg (27.0-32.0); MCV 95.2 FL (80.0-97.0); Mean Platelet Volume 11.4 FL (9.5-12.2); Monocytes # (A) 0.81 X 10*3/uL (0.20-1.00); Monocytes % (A) 11.9 %; NRBC Per 100 WBC 0 X 10*3/uL (0.00-0.01); Neutrophils # (A) 4.84 X 10*3/uL (1.80-7.70); Neutrophils % (A) 71.3 %; Platelet Count 138 X 10*3/uL (140-440); RBC 3.53 X 10*6/uL (4.40-5.60); RDW 18.3 % (11.5-14.5); WBC 6.79 X 10*3/uL (4.50-10.00)
[2023-03-02] MEDS: FLUTICASONE 110 MCG INHALER INHALATION SCH ×2 (09:52→20:53)
[2023-03-02 10:35] LABS: ALT 8 U/L (10-49); AST 16 U/L (14-35); Albumin 2.8 d/dL (3.8-4.9); Albumin/Globulin Ratio 0.65 Ratio (1.60-3.17); Alkaline Phosphatase 60 U/L (41-126); BUN/Creat Ratio 6.85 Ratio (12.00-20.00); Blood Urea Nitrogen 26.7 mg/dL (9.0-27.0); Calcium 10.2 mg/dL (8.7-10.3); Carbon Dioxide 28.6 mmol/L (21.6-31.8); Chloride 102 mmol/L (96-109); Globulin 4.3 d/dL (1.6-3.3); Glucose 88 mg/dL (70-110); Potassium 4.5 mmol/L (3.5-5.5); Sodium 140 mmol/L (135-145); Total Bilirubin 0.6 mg/dL (0.3-1.2); Total Protein 7.1 d/dL (6.2-8.2)
[2023-03-02] MEDS: ISOSORBIDE MONONITRATE ER 30 MG TAB.ER.24H PO SCH (12:37)
[2023-03-02] MEDS: METOPROLOL TARTRATE 50 MG TAB PO SCH ×2 (12:37→22:22)
--- NOTE | 2023-03-02 14:28 | P.PN ---
Subjective Progress Note Date: 03/02/23 This is a 77-year-old male patient with a previous medical history significant for hypertension and hypertensive cardiovascular disease, hyperlipidemia, chronic atrial fibrillation, chronic diastolic heart failure, end-stage renal disease on hemodialysis Thursday and Thursday, history of asthma/COPD, history of CAD post-PCI, history of ankylosing spondylitis, obstructive sleep apnea on a CPAP, CVA in June 2021. Patient was hospitalized 07/1911/ at [facility] for sepsis secondary to C. difficile colitis and Covid 19. Patient has had several admissions to [facility] [place] secondary to C. difficile colitis, pneumonia and Covid 19 since then. Patient is a long-term resident at [facility]. Patient was newly started on pamidronate 90 mg IV piggyback as ordered by nephrology and started this on 02/27/2023 at [facility]. Patient apparently developed atrial fibrillation with RVR while at dialysis Center and was subsequently transferred to [facility] and then transferred to [facility]. There was also concern that patient had mental status changes. Chest x-ray was concerning for heart failure pulmonary edema. CAT scan of the brain revealed old left frontoparietal infarct, age-related atrophy, no acute Process. Patient was admitted and MedSurg floor. He has been seen by nephrology and has been ordered to maintain his Thursday schedule. Patient did not complete a full dialysis treatment on Thursday. Patient is also been seen by neurology for encephalopathy of unclear etiology rule out ischemic stroke versus new onset seizure activity. A repeat CAT scan of the brain has been ordered as well as carotid duplex and lipid panel, EEG and lab work. Carotid ultrasound re vealed no hemodynamically significant stenosis. Patient has been resumed on his home medications. PT OT and speech therapies have been ordered. REVIEW OF SYSTEMS Constitutional: No fever, no chills, no night sweats. No weight loss. No weakness, No fatigue reported lethargy. Noted daytime sleepiness. HEENT: No headache. No blurred vision or double vision, no loss of vision.No loss of Hearing, no ringing in the ears, no dizziness. No nasal drainage or congestion. No epistaxis. No sore throat. Lungs: No shortness of breath, noted cough, no sputum production. No wheezing. Cardiovascular: No chest pain, no lower extremity edema. No palpitations. No paroxysmal nocturnal dyspnea. No orthopnea. No lightheadedness or dizziness. No syncopal episodes. Abdominal: No abdominal pain. No nausea, vomiting. No diarrhea. No constipation. No bloody or tarry stools. Reported loss of appetite. Genitourinary: No dysuria, increased frequency, urgency. No urinary retention. Patient makes very little urine. Musculoskeletal: No myalgias. Noted chronic muscle weakness, noted gait dysfunction, no frequent falls. No back pain. No neck pain.Integumentary: No wounds, no lesions. No rash or pruritus. No unusual bruising. No change in hair or nails. Neurologic: No aphasia. No facial droop. Noted change in mentation with underlying dementia. No head injury. No headache. No paralysis. No paresthesia. Psychiatric: No depression. No anxiety. No mood swings. Endocrine: No abnormal blood sugars. No weight change. No excessive sweating or thirst. No cold intolerance. PHYSICAL EXAMINATION Gen: This is a 77-year-old obese male. He is resting in bed and appears to be in no acute distress HEENT: Head is atraumatic, normocephalic. Pupils equal, round. Sclerae is anicteric. NECK: Supple. No JVD. LUNGS: Decreased breath sounds at the bases. No crackles, no wheezes. No intercostal retractions. HEART: First heart sound is depressed, second heart sound is normal, there is systolic ejection murmur 2/6 located in the left sternal border. ABDOMEN: Soft. Bowel sounds are present. No masses. No tenderness. EXTREMITIES: No pedal edema. No calf tenderness. Dorsalis pedis +1 bilaterally. NEUROLOGICAL: Patient is awake but drowsy, opens eyes to verbal stimuli, gives brief answers. Patient noted to have significant generalized weakness, no focal weakness. ASSESSMENT AND PLAN 1. Acute metabolic encephalopathy of unclear etiology. Neurology consult appreciated. Patient is scheduled for repeat CAT scan of the brain and EEG. Consults with PT, OT, ST. 2. Atrial fibrillation with RVR, paroxysmal. Continue patient on Lopressor 100 mg twice daily, eliquis 2.5 mg twice daily. 3. End-stage renal disease on hemodialysis area patient to receive dialysis on Thursday. Nephrology consult appreciated. Continue midodrine 100 mg 3 times daily. 4. Chronic diastolic heart failure. Continue patient on dialysis as scheduled Thursday, continue metoprolol tartrate 100 mg twice daily. Continue patient on Renvela 800 mg 2 tablets twice daily and 800 mg on Thursday at noon. 5. History of CVA. Continue atorvastatin 10 mg Thursday and Thursday for secondary prevention. 6. Hypertension with hypertensive cardiovascular disease. Continue patient on Lopressor 100 mg twice daily. 7. Hyperlipidemia. Continue atorvastatin. 8. History of coronary artery disease status post PCI. Continue Imdur 30 mg daily, Lipitor, continue Lopressor. 9. Moderate intermittent asthma, stable. Continue QVAR 2 puffs twice daily, Ventolin inhaler 2 puffs 4 times daily as needed, Singulair 10 mgat bedtime. 10. Benign prostatic hypertrophy. 11. Chronic gout. Continue allopurinol 400 mg daily. 12. Gastroesophageal reflux disease. Continue Protonix 40 mg daily. CODE STATUS: DO NOT RESUSCITATE Impression and plan of care have been directed as dictated by the signing physician. Missy Manzano nurse practitioner acting as scribe for signing physician. Objective - Vital Signs Vital signs: Vital Signs Temp 97.9 F 03/02/23 12:35 Pulse 105 H 03/02/23 12:35 Resp 16 03/02/23 12:35 BP 120/68 03/02/23 12:35 Pulse Ox 98 03/02/23 12:35 FiO2 Intake & Output 03/01/23 03/02/23 03/02/23 18:59 06:59 18:59 Intake Total 300 Output Total 2300 Balance -1999 Intake: Hemodialysis 300 Output: Hemodialysis 2300 Other: Voiding Method Diaper Diaper # Voids 0 1 # Bowel Movements 1 1 - Labs CBC & Chem 7: 03/02/23 05:35 03/02/23 05:35 Labs: Abnormal Lab Results - Last 24 Hours (Table) 03/01/23 03/01/23 03/02/23 Range/Units 12:32 12:32 05:35 RBC 3.53 L (4.40-5.60) X 10*6/uL Hgb 10.4 L (12.0-15.0) d/dL Hct 33.6 L (39.6-50.0) % MCHC 31.0 L (32.0-37.0) d/dL RDW 18.3 H (11.5-14.5) % Plt Count 138 L (140-440) X 10*3/uL Creatinine (0.6-1.5) mg/dL Est GFR (CKD-EPI) (>=60) BUN/Creatinine Ratio (12.00-20.00) Ratio ALT (10-49) U/L Albumin (3.8-4.9) d/dL Globulin (1.6-3.3) d/dL Albumin/Globulin Ratio (1.60-3.17) Ratio HDL Cholesterol 38.80 L (40.00-60.00) mg/dL Folate 40.00 H (4.40-31.00) ng/mL 03/02/23 Range/Units 05:35 RBC (4.40-5.60) X 10*6/uL Hgb (12.0-15.0) d/dL Hct (39.6-50.0) % MCHC (32.0-37.0) d/dL RDW (11.5-14.5) % Plt Count (140-440) X 10*3/uL Creatinine 3.9 H (0.6-1.5) mg/dL Est GFR (CKD-EPI) 15 L (>=60) BUN/Creatinine Ratio 6.85 L (12.00-20.00) Ratio ALT 8 L (10-49) U/L Albumin 2.8 L (3.8-4.9) d/dL Globulin 4.3 H (1.6-3.3) d/dL Albumin/Globulin Ratio 0.65 L (1.60-3.17) Ratio HDL Cholesterol (40.00-60.00) mg/dL Folate (4.40-31.00) ng/mL
--- NOTE | 2023-03-02 15:03 | P.PN ---
Subjective Patient is seen for follow-up for end-stage renal disease. No significant complaints today Scheduled for dialysis in a.m. Heart rate staying 80s to 100 bpm. Objective - Vital Signs Vital signs: Vital Signs Temp 97.9 F 03/02/23 12:35 Pulse 105 H 03/02/23 12:35 Resp 16 03/02/23 12:35 BP 120/68 03/02/23 12:35 Pulse Ox 98 03/02/23 12:35 FiO2 Intake & Output 03/01/23 03/02/23 03/02/23 18:59 06:59 18:59 Intake Total 300 Output Total 2300 Balance -1999 Intake: Hemodialysis 300 Output: Hemodialysis 2300 Other: Voiding Method Diaper Diaper # Voids 0 1 # Bowel Movements 1 1 - Exam Patient is awake, comfortable, no acute distress Examination of the heart S1 and S2 Examination of the lungs bilateral breath sounds are heard Abdomen is soft nontender Examination lower extremity shows no evidence of edema PIZZA MAKER exam shows patient is moving all 4 extremities. - Labs CBC & Chem 7: 03/02/23 05:35 03/02/23 05:35 Labs: Abnormal Lab Results - Last 24 Hours (Table) 03/01/23 03/01/23 03/02/23 Range/Units 12:32 12:32 05:35 RBC 3.53 L (4.40-5.60) X 10*6/uL Hgb 10.4 L (12.0-15.0) d/dL Hct 33.6 L (39.6-50.0) % MCHC 31.0 L (32.0-37.0) d/dL RDW 18.3 H (11.5-14.5) % Plt Count 138 L (140-440) X 10*3/uL Creatinine (0.6-1.5) mg/dL Est GFR (CKD-EPI) (>=60) BUN/Creatinine Ratio (12.00-20.00) Ratio ALT (10-49) U/L Albumin (3.8-4.9) d/dL Globulin (1.6-3.3) d/dL Albumin/Globulin Ratio (1.60-3.17) Ratio HDL Cholesterol 38.80 L (40.00-60.00) mg/dL Folate 40.00 H (4.40-31.00) ng/mL 03/02/23 Range/Units 05:35 RBC (4.40-5.60) X 10*6/uL Hgb (12.0-15.0) d/dL Hct (39.6-50.0) % MCHC (32.0-37.0) d/dL RDW (11.5-14.5) % Plt Count (140-440) X 10*3/uL Creatinine 3.9 H (0.6-1.5) mg/dL Est GFR (CKD-EPI) 15 L (>=60) BUN/Creatinine Ratio 6.85 L (12.00-20.00) Ratio ALT 8 L (10-49) U/L Albumin 2.8 L (3.8-4.9) d/dL Globulin 4.3 H (1.6-3.3) d/dL Albumin/Globulin Ratio 0.65 L (1.60-3.17) Ratio HDL Cholesterol (40.00-60.00) mg/dL Folate (4.40-31.00) ng/mL Assessment and Plan Assessment: #1 encephalopathy cause unclear. #2 ESRD on hemodialysis, MWF schedule #3 anemia with ESRD #4 metabolic bone disease #5 A. fib with RVR, paroxysmal, controlled ventricular response now Plan: Hemodialysis in a.m.
--- NOTE | 2023-03-02 15:57 | CT ---
EXAMINATION TYPE: CT brain wo con DATE OF EXAM: 03/02/2023 COMPARISON: 02/28/2023 INDICATION: ams DLP: 1316 mGycm, Automated exposure control for dose reduction was used. CONTRAST: None CT of the brain is performed utilizing 3 mm thick sections through the posterior fossa and 3 mm thick sections through the remaining calvarium. Study is not performed within 24 hours of arrival to the hospital. There is artifact limiting the frontal portions of the evaluation. No abnormal hyperdensity is present to suggest an acute intracranial hemorrhage. No mass lesion is evident. No acute infarcts are evident. Previous frontal parietal region abnormality cannot be delineated on t his examination due to the artifact in the frontal regions.. Ventricles and sulci are diffusely prominent for the patient age. Paranasal sinuses and mastoid air cells within the [id number] are clear. IMPRESSIONS: 1. Limited evaluation. 2. Mild age-related atrophy.
--- NOTE | 2023-03-02 18:37 | P.PN ---
Subjective Progress Note Date: 03/02/23 Patient initially seen by Dr. Bhavin Beck. Please refer to his note for details. Patient is a 77-year-old right-handed male with history of stroke involving the left frontal region, who presented with an episode of altered mental status. I spoke to patient's on the phone, who provided some history. She states that patient had about 2 or 3 episodes of sudden onset of unresponsiveness in the last 1-1/2 years. The same thing happened prior to this admission. He had just completed his hemodialysis and was doing fine. All of a sudden he became unresponsive. His pulse was high. He was brought to the hospital. No obvious convulsive activity was noted. No tongue bite. Next day he clinically improved. Patient's states that on Thursday while he was in the ER, his teeth were fine. Although the next day on Thursday she noticed that his front tooth was chipped. She asked him as to the reason that his tooth was chipped and he does not know when it happened. At present patient is comfortably lying in the bed, somnolent, denies any headache. He is groggy, keeps his eyes closed. He does become alert and responds well, although sometimes have delayed latency. Patient admits to having stroke in the past, but does not remember when it happened and what part of the body was affected. Some of the workup during his hospital visit consisted of: Patient is afebrile so far. White blood cell is within normal limits. Creatinine is 2.2, carbon dioxide is 34 and albumin is 31 otherwise rest of the Chem-[address] of the head is reported as old left frontal parietal infarct. Age-related atrophy. No acute intracranial processes identified. Follow-up MRI can be performed as clinically indicated. I personally reviewed that a CT and I compared to his previous CTs and is seems the patient has an old left frontal stroke. Otherwise no acute or subacute changes. EKG is reported as atrial fibrillation with the RVR. Objective - Vital Signs Vital signs: Vital Signs Temp 97.9 F 03/02/23 12:35 Pulse 105 H 03/02/23 12:35 Resp 16 03/02/23 12:35 BP 120/68 03/02/23 12:35 Pulse Ox 98 03/02/23 12:35 FiO2 Intake & Output 0603/02/23 03/02/23 18:59 06:59 18:59 Intake Total 300 Output Total 2300 -1999 Intake: Hemodialysis 300 Output: Hemodialysis 2300 Other: Voiding Method Diaper Diaper # Voids 0 1 # Bowel Movements 1 1 - Exam Patient is slightly somnolent, but does wake up on calling his name. Patient able to name and repeat very well. He was able to name all 3 objects presented including eyeglasses, pencil and knuckles. Patient can repeat very well. Patient has some degree of apathy, with decreased initiative to talk. Speech is clear, with no obvious aphasia or dysarthria, although patient has very slow latency time to answer question, some hesitancy. On cranial nerve examination, pupils are equal, round and reacting, visual sanchez could not be tested as he would not cooperate. His face is symmetric and tongue protrudes to the midline. On muscle strength testing, the strength is normal in the arms distally and proximally. In the lower limbs hip flexion is about 4-4-, ankle dorsiflexion is 5 bilaterally. - Labs CBC & Chem 7: 03/02/23 05:35 03/02/23 05:35 Labs: Abnormal Lab Results - Last 24 Hours (Table) 03/01/23 03/01/23 03/02/23 Range/Units 12:32 12:32 05:35 RBC 3.53 L (4.40-5.60) X 10*6/uL Hgb 10.4 L (12.0-15.0) d/dL Hct 33.6 L (39.6-50.0) % MCHC 31.0 L (32.0-37.0) d/dL RDW 18.3 H (11.5-14.5) % Plt Count 138 L (140-440) X 10*3/uL Creatinine (0.6-1.5) mg/dL Est GFR (CKD-EPI) (>=60) BUN/Creatinine Ratio (12.00-20.00) Ratio ALT (10-49) U/L Albumin (3.8-4.9) d/dL Globulin (1.6-3.3) d/dL Albumin/Globulin Ratio (1.60-3.17) Ratio HDL Cholesterol 38.80 L (40.00-60.00) mg/dL Folate 40.00 H (4.40-31.00) ng/mL 03/02/23 Range/Units 05:35 RBC (4.40-5.60) X 10*6/uL Hgb (12.0-15.0) d/dL Hct (39.6-50.0) % MCHC (32.0-37.0) d/dL RDW (11.5-14.5) % Plt Count (140-440) X 10*3/uL Creatinine 3.9 H (0.6-1.5) mg/dL Est GFR (CKD-EPI) 15 L (>=60) BUN/Creatinine Ratio 6.85 L (12.00-20.00) Ratio ALT 8 L (10-49) U/L Albumin 2.8 L (3.8-4.9) d/dL Globulin 4.3 H (1.6-3.3) d/dL Albumin/Globulin Ratio 0.65 L (1.60-3.17) Ratio HDL Cholesterol (40.00-60.00) mg/dL Folate (4.40-31.00) ng/mL Assessment and Plan Assessment: This is a 77-year-old gentleman with history of left frontal stroke, atrial fibrillation on Xarelto and multiple medical problems who presented from his nursing facility because sudden episode of unresponsiveness and altered mental status. Encephalopathy of unknown etiology. Rule out seizure, especially with his history of previous CVA in the past. Per patient's , he had 2 or 3 such spells in the last 1-1/2 years, in which she becomes unresponsive for no reason. CVA less likely, as patient is already on anticoagulation. Rule out other causes like metabolic encephalopathy. History of old left frontal stroke in June 2021 History of atrial fibrillation on Xarelto ESRD on dialysis History of CAD s/p stent Deafness Sleep Apnea Chronic back pain CHF according to records History of Hypertension Hyperlipidemia Plan: Repeat CT head revealed mild age-related atrophy. I personally reviewed CT head, agree with significant artifact in the frontal region. Evidence of old left frontal parietal CVA. No evidence of an acute stroke. Carotid Doppler revealed limited study. No hemodynamically significant stenosis. Vertebral artery flow could not be visualized on either side. Lipid panel with cholesterol 98, LDL 45, HDL 38 and triglycerides 69. Hemoglobin A1c EEG was performed, which revealed background slowing of moderate degree, suggestive of generalized cerebral dysfunction as can be seen with toxic metabolic encephalopathy or related to diffuse structural brain abnormality. Clinical correlation is recommended. Intermittent, sporadic left temporal sharply c contoured waves were seen during the study. This is suggest underlying cortical irritability and tendency for seizures. Clinical correlation is strongly recommended. May consider prolonged EEG for further e valuation. Based upon patient's history (provided by patient's ), and EEG findings, focal seizure is a possibility. We will start Keppra 250 mg twice a day, and 250 mg extra dose postdialysis. Discussed with patient's , she agreed with starting medication. Possible side effects discussed. TSH 1.89, ammonia level <9, folate 40.0, vitamin B12 506, all normal. Primary has started the patient on Eliquis 2.5 mg a tablet twice a day (switched from Xarelto) patient also on Plavix 75 mg daily. Is on Lipitor 10mg M, Thu, Thursday Placed on cardiac monitoring, showing atrial fibrillation, controlled between 70-80 with some PVCs. Consulted PT OT and [employer]IAN We'll defer the rest of the medical management to primary team For DVT prophylaxis is on Eliquis.
[2023-03-02] MEDS ORDERED: ATORVASTATIN 10 MG TAB PO SCH (21:00)
[2023-03-02] MEDS: MONTELUKAST 10 MG TAB PO SCH (22:22)
--- NOTE | 2023-03-02 22:22 | EEG ---
ELECTROENCEPHALOGRAM REPORT PREAMBLE: This is a 77-year-old male with altered mental status, rule out seizure. CURRENT MEDICATIONS: 1. Eliquis. 2. Lipitor. 3. Questran. 4. Plavix. 5. Flovent. 6. Imdur. 7. Lopressor. 8. ProAmatine. 9. Singulair. EEG FINDINGS: This is a 21-channel digital EEG recorded with video component, utilizing 10/20 international system with referential and bipolar montages. Background consists of moderately well-developed, but not very well regulated, predominantly 6 hertz theta activity seen in bihemispheric region. Background does not seem to be reactive to eye opening and closing. Intermittent delta slowing was also seen in bihemispheric region. A photic driving response was not seen. Drowsiness and some stage 2 sleep was seen in the later part of the study with presence of sleep spindles. Intermittent, sporadic left temporal sharply contoured waves were seen during photic stimulation and during drowsiness. No electrographic seizure was recorded. IMPRESSION: This is an abnormal EEG due to: 1. Background slowing of moderate degree, suggestive of generalized cerebral dysfunction as can be seen with toxic metabolic encephalopathy or related to diffuse structural brain abnormality. Clinical correlation is recommended. 2. Intermittent, sporadic, left temporal sharply contoured waves were seen during the study. This may suggest underlying cortical irritability and tendency for seizures. Clinical correlation is strongly recommended. May consider prolonged EEG for further evaluation. YOLANDA / OWEN: [id number] / MTDD
[2023-03-03] MEDS: FLUTICASONE 110 MCG INHALER INHALATION SCH ×2 (07:59→21:14)
[2023-03-03] MEDS: MIDODRINE 5 MG TAB PO SCH ×3 (08:31→17:42)
[2023-03-03] MEDS: FOLIC ACID-VIT B COMPLEX-VIT C 1 CAP PO SCH (08:35)
[2023-03-03] MEDS: PANTOPRAZOLE 40 MG TABLET PO SCH (08:35)
[2023-03-03] MEDS: ISOSORBIDE MONONITRATE ER 30 MG TAB.ER.24H PO SCH (08:35)
[2023-03-03] MEDS: LORATADINE 10 MG TAB PO SCH (08:35)
[2023-03-03] MEDS: CLOPIDOGREL 75 MG TAB PO SCH (08:35)
[2023-03-03] MEDS: METOPROLOL TARTRATE 50 MG TAB PO SCH ×2 (08:35→21:37)
[2023-03-03] MEDS: allopurinoL 100 MG TAB PO SCH (08:35)
[2023-03-03] MEDS: APIXABAN 2.5 MG TABLET PO SCH ×2 (08:35→21:38)
[2023-03-03] MEDS: levETIRAcetam 250 MG TAB PO SCH ×2 (12:06→21:38)
--- NOTE | 2023-03-03 13:57 | P.PN ---
Subjective Patient is seen for follow-up for end-stage renal disease. No significant complaints today Patient had hemodialysis yesterday with 2.3 L of ultrafiltration Heart rate staying in the 70s bpm. Objective - Vital Signs Vital signs: Vital Signs Temp 97.6 F 03/03/23 11:45 Pulse 71 03/03/23 11:45 Resp 14 03/03/23 11:45 BP 131/74 03/03/23 11:45 Pulse Ox 96 03/03/23 11:45 FiO2 Intake & Output 03/02/23 03/03/23 03/03/23 18:59 06:59 18:59 Intake Total 300 120 Output Total 2300 Balance -1999 120 Weight 67 kg Intake: Oral 120 Hemodialysis 300 Output: Hemodialysis 2300 Other: Voiding Method Diaper Diaper Diaper # Voids 0 # Bowel Movements 1 0 1 - Exam Patient is awake, comfortable, no acute distress Examination of the heart S1 and S2 Examination of the lungs bilateral breath sounds are heard Abdomen is soft nontender Examination lower extremity shows no evidence of edema FLUID DYNAMICIST exam shows patient is moving all 4 extremities. - Labs CBC & Chem 7: 03/02/23 05:35 03/02/23 05:35 Assessment and Plan Assessment: #1 encephalopathy cause unclear. #2 ESRD on hemodialysis, TTS schedule #3 anemia with ESRD #4 metabolic bone disease #5 A. fib with RVR, paroxysmal, controlled ventricular response now Plan: No need for HD treatment today. Next Dialysis on .
--- NOTE | 2023-03-03 14:11 | P.PN ---
Subjective Progress Note Date: 03/03/23 This is a 77-year-old male patient with a previous medical history significant for hypertension and hypertensive cardiovascular disease, hyperlipidemia, chronic atrial fibrillation, chronic diastolic heart failure, end-stage renal disease on hemodialysis Thursday and Thursday, history of asthma/COPD, history of CAD post-PCI, history of ankylosing spondylitis, obstructive sleep apnea on a CPAP, CVA in June 2021. Patient was hospitalized 07/1911/ at [facility] for sepsis secondary to C. difficile colitis and Covid 19. Patient has had several admissions to [facility] [place] secondary to C. difficile colitis, pneumonia and Covid 19 since then. Patient is a long-term resident at [facility]. Patient was newly started on pamidronate 90 mg IV piggyback as ordered by nephrology and started this on 02/27/2023 at [facility]. Patient apparently developed atrial fibrillation with RVR while at dialysis Center and was subsequently transferred to [facility] and then transferred to [facility]. There was also concern that patient had mental status changes. Chest x-ray was concerning for heart failure pulmonary edema. CAT scan of the brain revealed old left frontoparietal infarct, age-related atrophy, no acute Process. Patient was admitted and MedSurg floor. He has been seen by nephrology and has been ordered to maintain his Thursday schedule. Patient did not complete a full dialysis treatment on Thursday. Patient is also been seen by neurology for encephalopathy of unclear etiology rule out ischemic stroke versus new onset seizure activity. A repeat CAT scan of the brain has been ordered as well as carotid duplex and lipid panel, EEG and lab work. Carotid ultrasound re vealed no hemodynamically significant stenosis. Patient has been resumed on his home medications. PT OT and speech therapies have been ordered. 03/03: Patient underwent repeat CAT scan of the brain which revealed age related atrophy. No evidence of acute stroke. EEG revealed generalized cerebral dysfunction seen in toxic metabolic encephalopathy or related to diffuse structural brain abnormality. There is also intermittent sporadic left temporal sharply contoured waves may suggest underlying cortical irritability and tendency for seizures. May consider prolonged EEG. Neurology has started the patient on Keppra 250 mg twice daily with an extra dose of 250 mg following dialysis. Patient remains afebrile, heart rate in the 70s, blood pressure 131/74, pulse ox 96% on room air. Discharge plan is for return to [facility]. Patient will be monitored overnight and plan for discharge tomorrow. REVIEW OF SYSTEMS Constitutional: No fever, no chills, no night sweats. No weight loss. No wea kness, No fatigue reported lethargy. Noted daytime sleepiness. HEENT: No headache. No blurred vision or double vision, no loss of vision.No loss of Hearing, no ringing in the ears, no dizziness. No nasal drainage or congestion. No epistaxis. No sore throat. Lungs: No shortness of breath, noted cough, no sputum production. No wheezing. Cardiovascular: No chest pain, no lower extremity edema. No palpitations. No paroxysmal nocturnal dyspnea. No orthopnea. No lightheadedness or dizziness. No syncopal episodes. Abdominal: No abdominal pain. No nausea, vomiting. No diarrhea. No constipation. No bloody or tarry stools. Reported loss of appetite. Genitourinary: No dysuria, increased frequency, urgency. No urinary retention. Patient makes very little urine. Musculoskeletal: No myalgias. Noted chronic muscle weakness, noted gait dysfunction, no frequent falls. No back pain. No neck pain.Integumentary: No wounds, no lesions. No rash or pruritus. No unusual bruising. No change in hair or nails. Neurologic: No aphasia. No facial droop. Noted change in mentation with underlying dementia. No head injury. No headache. No paralysis. No paresthesia. Psychiatric: No depression. No anxiety. No mood swings. Endocrine: No abnormal blood sugars. No weight change. No excessive sweating or thirst. No cold intolerance. PHYSICAL EXAMINATION Gen: This is a 77-year-old obese male. He is resting in bed and appears to be in no acute distress HEENT: Head is atraumatic, normocephalic. Pupils equal, round. Sclerae is anicteric. NECK: Supple. No JVD. LUNGS: Decreased breath sounds at the bases. No crackles, no wheezes. No intercostal retractions. HEART: First heart sound is depressed, second heart sound is normal, there is systolic ejection murmur 2/6 located in the left sternal border. ABDOMEN: Soft. Bowel sounds are present. No masses. No tenderness. EXTREMITIES: No pedal edema. No calf tenderness. Dorsalis pedis +1 bilaterally. NEUROLOGICAL: Patient is awake but drowsy, opens eyes to verbal stimuli, gives brief answers. Patient noted to have significant generalized weakness, no focal weakness. ASSESSMENT AND PLAN 1. Acute metabolic encephalopathy of unclear etiology. Neurology consult appreciated. Patient is scheduled for repeat CAT scan of the brain and EEG. Consults with PT, OT, ST. 2. Atrial fibrillation with RVR, paroxysmal. Continue patient on Lopressor 100 mg twice daily, eliquis 2.5 mg twice daily. 3. End-stage renal disease on hemodialysis area patient to receive dialysis on Thursday. Nephrology consult appreciated. Continue midodrine 100 mg 3 times daily. 4. Chronic diastolic heart failure. Continue patient on dialysis as scheduled Thursday, continue metoprolol tartrate 100 mg twice daily. Continue patient on Renvela 800 mg 2 tablets twice daily and 800 mg on Thursday at noon. 5. History of CVA. Continue atorvastatin 10 mg Thursday and Thursday for secondary prevention. 6. Hypertension with hypertensive cardiovascular disease. Continue patient on Lopressor 100 mg twice daily. 7. Hyperlipidemia. Continue atorvastatin. 8. History of coronary artery disease status post PCI. Continue Imdur 30 mg daily, Lipitor, continue Lopressor. 9. Moderate intermittent asthma, stable. Continue QVAR 2 puffs twice daily, Ventolin inhaler 2 puffs 4 times daily as needed, Singulair 10 mgat bedtime. 10. Benign prostatic hypertrophy. 11. Chronic gout. Continue allopurinol 400 mg daily. 12. Gastroesophageal reflux disease. Continue Protonix 40 mg daily. CODE STATUS: DO NOT RESUSCITATE Discharge plan: Return to [facility] on Thursday Impression and plan of care have been directed as dictated by the signing physician. Missy Manzano nurse practitioner acting as scribe for signing physician. Objective - Vital Signs Vital signs: Vital Signs Temp 97.5 F L 03/03/23 07:35 Pulse 71 03/03/23 07:35 Resp 15 03/03/23 07:35 BP 140/83 03/03/23 07:35 Pulse Ox 95 03/03/23 08:01 FiO2 Intake & Output 03/02/23 03/03/23 03/03/23 18:59 06:59 18:59 Intake Total 300 120 Output Total 2300 Balance -2000 120 Weight 67 kg Intake: Oral 120 Hemodialysis 300 Output: Hemodialysis 2300 Other: Voiding Method Diaper Diaper Diaper # Voids 0 # Bowel Movements 1 0 - Labs CBC & Chem 7: 03/02/23 05:35 03/02/23 05:35
[2023-03-03] MEDS: MONTELUKAST 10 MG TAB PO SCH (21:38)
--- NOTE | 2023-03-03 22:54 | P.PN ---
Subjective Progress Note Date: 03/03/23 03/03/2023: Patient was seen for a follow-up. Patient is laying in the bed. Continues to be groggy. He does wake up on alerting. Essentially unchanged. 03/02/2023: Patient initially seen by Dr. Bhavin Beck. Please refer to his note for details. Patient is a 77-year-old right-handed male with history of stroke involving the left frontal region, who presented with an episode of altered mental status. I spoke to patient's on the phone, who provided some history. She states that patient had about 2 or 3 episodes of sudden onset of unresponsiveness in the last 1-1/2 years. The same thing happened prior to this admission. He had just completed his hemodialysis and was doing fine. All of a sudden he became unresponsive. His pulse was high. He was brought to the hospital. No obvious convulsive activity was noted. No tongue bite. Next day he clinically improved. Patient's states that on Thursday while he was in the ER, his teeth were fine. Although the next day on Thursday she noticed that his front tooth was chipped. She asked him as to the reason that his tooth was chipped and he does not know when it happened. At present patient is comfortably lying in the bed, somnolent, denies any headache. He is groggy, keeps his eyes closed. He does become alert and responds well, although sometimes have delayed latency. Patient admits to having stroke in the past, but does not remember when it happened and what part of the body was affected. Some of the workup during his hospital visit consisted of: Patient is afebrile so far. White blood cell is within normal limits. Creatinine is 2.2, carbon dioxide is 34 and albumin is 31 otherwise rest of the Chem-[address] of the head is reported as old left frontal parietal infarct. Age-related atrophy. No acute intracranial processes identified. Follow-up MRI can be performed as clinically indicated. I personally reviewed that a CT and I compared to his previous CTs and is seems the patient has an old left frontal stroke. Otherwise no acute or subacute changes. EKG is reported as atrial fibrillation with the RVR. Objective - Vital Signs Vital signs: Vital Signs Temp 97.6 F 03/03/23 11:45 Pulse 71 03/03/23 11:45 Resp 14 03/03/23 11:45 BP 131/74 03/03/23 11:45 Pulse Ox 96 03/03/23 11:45 FiO2 Intake & Output 03/02/23 03/03/23 03/03/23 18:59 06:59 18:59 Intake Total 300 120 Output Total 2300 Balance -2000 120 Weight 67 kg Intake: Oral 120 Hemodialysis 300 Output: Hemodialysis 2300 Other: Voiding Method Diaper Diaper Diaper # Voids 0 # Bowel Movements 1 0 1 - Exam Patient is slightly somnolent, but does wake up on calling his name. Patient able to name and repeat very well. He was able to name all 3 objects presented including eyeglasses, pencil and knuckles. Patient can repeat very well. Patient has some degree of apathy, with decreased initiative to talk. Speech is clear, with no obvious aphasia or dysarthria, although patient has very slow latency time to answer question, some hesitancy. On cranial nerve examination, pupils are equal, round and reacting, visual sanchez could not be tested as he would not cooperate. His face is symmetric and tongue protrudes to the midline. On muscle strength testing, the strength is normal in the arms distally and proximally. In the lower limbs hip flexion is about 4-4-, ankle dorsiflexion is 5 bilaterally. - Labs CBC & Chem 7: 03/02/23 05:35 03/02/23 05:35 Assessment and Plan Assessment: This is a 77-year-old gentleman with history of left frontal stroke, atrial fibrillation on Xarelto and multiple medical problems who presented from his nursing facility because sudden episode of unresponsiveness and altered mental status. Encephalopathy of unknown etiology. Rule out seizure, especially with his history of previous CVA in the past. Per patient's , he had 2 or 3 such spells in the last 1-1/2 years, in which she becomes unresponsive for no reason. CVA less likely, as patient is already on anticoagulation. Rule out other causes like metabolic encephalopathy. History of old left frontal stroke in June 2021 History of atrial fibrillation on Xarelto ESRD on dialysis History of CAD s/p stent Deafness Sleep Apnea Chronic back pain CHF according to records History of Hypertension Hyperlipidemia Plan: Repeat CT head revealed mild age-related atrophy. I personally reviewed CT head, agree with significant artifact in the frontal region. Evidence of old left frontal parietal CVA. No evidence of an acute stroke. Carotid Doppler revealed limited study. No hemodynamically significant stenosis. Vertebral artery flow could not be visualized on either side. Lipid panel with cholesterol 98, LDL 45, HDL 38 and triglycerides 69. Hemoglobin A1c EEG was performed, which revealed background slowing of moderate degree, suggestive of generalized cerebral dysfunction as can be seen with toxic metabolic encephalopathy or related to diffuse structural brain abnormality. Clinical correlation is recommended. Intermittent, sporadic left temporal sharply c contoured waves were seen during the study. This is suggest underlying cortical irritability and tendency for seizures. Clinical correlation is strongly recommended. May consider prolonged EEG for further evaluation. Based upon patient's history (provided by patient's ), and EEG findings, focal seizure is a possibility. We will start Keppra 250 mg twice a day, and 250 mg extra dose postdialysis. Discussed with patient's , she agreed with starting medication. Possible side effects discussed. TSH 1.89, ammonia level <9, folate 40.0, vitamin B12 506, all normal. Primary has started the patient on Eliquis 2.5 mg a tablet twice a day (switched from Xarelto) patient also on Plavix 75 mg daily. Is on Lipitor 10mg M, Thu, Thursday Placed on cardiac monitoring, showing atrial fibrillation, controlled between 70-80 with some PVCs. Consulted PT OT and [employer] We'll defer the rest of the medical management to primary team For DVT prophylaxis is on Eliquis. Neurologically clear, recommend follow-up with neurologist as an outpatient.
[2023-03-04 08:29] VITALS: RESP 16
[2023-03-04] MEDS: FLUTICASONE 110 MCG INHALER INHALATION SCH (08:51)
[2023-03-04] MEDS: FOLIC ACID-VIT B COMPLEX-VIT C 1 CAP PO SCH (09:33)
[2023-03-04] MEDS: MIDODRINE 5 MG TAB PO SCH ×3 (09:33→18:05)
[2023-03-04] MEDS: PANTOPRAZOLE 40 MG TABLET PO SCH (09:34)
[2023-03-04] MEDS: METOPROLOL TARTRATE 50 MG TAB PO SCH (09:34)
[2023-03-04] MEDS: ISOSORBIDE MONONITRATE ER 30 MG TAB.ER.24H PO SCH (09:34)
[2023-03-04] MEDS: LORATADINE 10 MG TAB PO SCH (09:34)
[2023-03-04] MEDS: levETIRAcetam 250 MG TAB PO SCH (09:34)
[2023-03-04] MEDS: APIXABAN 2.5 MG TABLET PO SCH (09:34)
[2023-03-04] MEDS: allopurinoL 100 MG TAB PO SCH (09:34)
[2023-03-04] MEDS: CLOPIDOGREL 75 MG TAB PO SCH (09:34)
[2023-03-04 12:54] VITALS: BP 122/72; PULSE 72; TEMP 98.5
--- NOTE | 2023-03-04 14:51 | P.DS ---
Providers Date of admission: 02/28/23 18:45 Expected date of discharge: 03/04/23 Attending physician: Jyotsna Kovacs Consults: 02/28/23 18:45 Consult Physician Routine Consulting Provider: Alexander Beck Consult Reason/Comments: AMS Do you want consulting provider notified?: Yes Consult Physician Routine Consulting Provider: Ivy Chun Consult Reason/Comments: ESRD, AMS Do you want consulting provider notified?: Yes Primary care physician: Jyotsna Kovacs Hospital Course: This is a 77-year-old male patient with a previous medical history significant for hypertension and hypertensive cardiovascular disease, hyperlipidemia, chronic atrial fibrillation, chronic diastolic heart failure, end-stage renal disease on hemodialysis Thursday and Thursday, history of asthma/COPD, history of CAD post-PCI, history of ankylosing spondylitis, obstructive sleep apnea on a CPAP, CVA in June 2021. Patient was hospitalized 07/1911/ at [facility] for sepsis secondary to C. difficile colitis and Covid 19. Patient has had several admissions to [facility] secondary to C. difficile colitis, pneumonia and Covid 19 since then. Patient is a long-term resident at [facility]. Patient was newly started on pamidronate 90 mg IV piggyback as ordered by nephrology and started this on 02/27/2023 at [facility]. Patient apparently developed atrial fibrillation with RVR while at dialysis Center and was subsequently transferred to [facility] and then transferred to [facility]. There was also concern that patient had mental status changes. Chest x-ray was concerning for heart failure pulmonary edema. CAT scan of the brain revealed old left frontoparietal infarct, age-related atrophy, no acute Process. Patient was admitted and MedSurg floor. He has been seen by nephrology and has been ordered to maintain his Thursday schedule. Patient did not complete a full dialysis treatment on Thursday. Patient is also been seen by neurology for encephalopathy of unclear etiology rule out ischemic stroke versus new onset seizure activity. A repeat CAT scan of the brain has been ordered as well as carotid duplex and lipid panel, EEG and lab work. Carotid ultrasound revealed no hemodynamically significant stenosis. Patient has been resumed on his home medications. PT OT and speech therapies have been ordered. 03/03: Patient underwent repeat CAT scan of the brain which revealed age related atrophy. No evidence of acute stroke. EEG revealed generalized cerebral dy sfunction seen in toxic metabolic encephalopathy or related to diffuse structural brain abnormality. There is also intermittent sporadic left temporal sharply contoured waves may suggest underlying cortical irritability and tendency for seizures. May consider prolonged EEG. Neurology has started the patient on Keppra 250 mg twice daily with an extra dose of 250 mg following dialysis. Patient remains afebrile, heart rate in the 70s, blood pressure 131/74, pulse ox 96% on room air. Discharge plan is for return to [facility]. Patient will be monitored overnight and plan for discharge tomorrow. 03/04: Patient has been started on Keppra by neurology for possible seizure disorder. Patient is somewhat groggy possibly related to the new medication. Patient has been afebrile, heart rate in the 70s, blood pressure 122/72, pulse ox 97% on room air. No repeat blood work today. Patient is back on his Thursday hemodialysis schedule. Patient has been eating well. No diarrhea. Nursing staff denies issues overnight. Patient will be discharged today back to [facility] in stable condition. DISCHARGE DIAGNOSES 1. Acute metabolic encephalopathy most likely secondary to new seizure activity. 2. Atrial fibrillation with RVR, paroxysmal. 3. End-stage renal disease on hemodialysis area patient to receive dialysis on Thursday. 4. Chronic diastolic heart failure. 5. History of CVA. 6. Hypertension with hypertensive cardiovascular disease. 7. Hyperlipidemia. 8. History of coronary artery disease status post PCI. C 9. Moderate intermittent asthma, stable. 10. Benign prostatic hypertrophy. 11. Chronic gout. 12. Gastroesophageal reflux disease. Discharge plan: Return to [facility] on Thursday Greater than 35 minutes was utilized and coordinating patient's discharge. Impression and plan of care have been directed as dictated by the signing physician. Missy Manzano nurse practitioner acting as scribe for signing physician. Patient Condition at Discharge: Stable Plan - Discharge Summary New Discharge Prescriptions: New levETIRAcetam [Keppra] 250 mg PO Q12HR tab Continue Montelukast [Singulair] 10 mg PO HS Dutasteride [Avodart] 0.5 mg PO DAILY Beclomethasone Dipropionate [Qvar 80 mcg/puff] 2 puff INHALATION RT-BID Isosorbide Mononitrate ER [Imdur] 30 mg PO DAILY Lansoprazole 30 mg PO BID Febuxostat [Uloric] 80 mg PO DAILY Albuterol Inhaler [Ventolin Hfa Inhaler] 2 puff INHALATION RT-QID PRN PRN Reason: Shortness Of Breath Loratadine 10 mg PO DAILY Nitroglycerin Sl Tabs [Nitrostat] 0.4 mg SUBLINGUAL Q5M PRN PRN Reason: Chest Pain Clopidogrel [Plavix] 75 mg PO DAILY tab Midodrine HCl [ProAmatine] 10 mg PO TID Apixaban [Eliquis] 2.5 mg PO BID Cholestyramine (with Sugar) [Cholestyramine Packet] 4 gm PO DAILY PRN PRN Reason: Diarrhea Budesonide [Pulmicort] 0.5 mg INHALATION RT-BID Potassium Citrate [Potassium Citrate ER] 10 meq PO DAILY Acetaminophen Tab [Tylenol] 650 mg PO Q4H PRN PRN Reason: Pain Or Fever > 100.5 fluocinolone acetonide oiL [Dermotic] 1 applic BOTH EARS BID PRN PRN Reason: EAR ISSUES Lidocaine-Prilocaine Cream [Emla Cream 2.5%/2.5%] 1 applic TOPICAL DAILY PRN PRN Reason: DIALYSIS Renavite 1 tab PO HS Atorvastatin Calcium [Lipitor] 10 mg PO [id number]@2100 Metoprolol Tartrate [Lopressor] 100 mg PO BID Vitamin B Complex 1 cap PO DAILY Loperamide HCl [Imodium A-D] 2 mg PO QID PRN PRN Reason: Diarrhea Discharge Medication List Dutasteride [Avodart] 0.5 mg PO DAILY 11/11/14 [History] Montelukast [Singulair] 10 mg PO HS 11/11/14 [History] Beclomethasone Dipropionate [Qvar 80 mcg/puff] 2 puff INHALATION RT-BID 11/21/15 [History] Isosorbide Mononitrate ER [Imdur] 30 mg PO DAILY 11/21/15 [History] Febuxostat [Uloric] 80 mg PO DAILY 10/22/16 [History] Lansoprazole 30 mg PO BID 10/22/16 [History] Albuterol Inhaler [Ventolin Hfa Inhaler] 2 puff INHALATION RT-QID PRN 02/11/20 [History] Loratadine 10 mg PO DAILY 03/17/20 [History] Lidocaine-Prilocaine Cream [Emla Cream 2.5%/2.5%] 1 applic TOPICAL DAILY PRN 06/13/21 [History] Nitroglycerin Sl Tabs [Nitrostat] 0.4 mg SUBLINGUAL Q5M PRN 06/13/21 [History] Renavite 1 tab PO HS 06/13/21 [History] Clopidogrel [Plavix] 75 mg PO DAILY tab 06/17/21 [Rx] Atorvastatin Calcium [Lipitor] 10 mg PO [id number]@2100 06/04/22 [History] Acetaminophen Tab [Tylenol] 650 mg PO Q4H PRN 02/28/23 [History] Apixaban [Eliquis] 2.5 mg PO BID 02/28/23 [History] Budesonide [Pulmicort] 0.5 mg INHALATION RT-BID 02/28/23 [History] Cholestyramine (with Sugar) [Cholestyramine Packet] 4 gm PO DAILY PRN 02/28/23 [History] Metoprolol Tartrate [Lopressor] 100 mg PO BID 02/28/23 [History] Midodrine HCl [ProAmatine] 10 mg PO TID 02/28/23 [History] Potassium Citrate [Potassium Citrate ER] 10 meq PO DAILY 02/28/23 [History] Vitamin B Complex 1 cap PO DAILY 02/28/23 [History] Loperamide HCl [Imodium A-D] 2 mg PO QID PRN 03/01/23 [History] fluocinolone acetonide oiL [Dermotic] 1 applic BOTH EARS BID PRN 03/01/23 [History] levETIRAcetam [Keppra] 250 mg PO Q12HR tab 03/04/23 [Rx] Follow up Appointment(s)/Referral(s): Jyotsna Kovacs MD [Primary Care Provider] - 1-2 days
== END 2023-03-04 19:23 | DRG 100 ==
LOC: EC 16:22 → 5NMEDONC 18:45
PROVIDERS: ADMIT Internal Medicine; ATTEND Internal Medicine
PROC: 4A10X4Z Monitoring of Central Nervous Electrical Activity, External Approach (ICD-10-PCS; principal; 2023-03-02)
DX: R56.9 Unspecified convulsions (principal); G92.8 Other toxic encephalopathy; N18.6 End stage renal disease; I13.2 Hypertensive heart and chronic kidney disease with heart failure and with stage 5 chronic kidney disease, or end stage renal disease; I50.32 Chronic diastolic (congestive) heart failure; J44.0 Chronic obstructive pulmonary disease with (acute) lower respiratory infection; I48.20 Chronic atrial fibrillation, unspecified; E11.22 Type 2 diabetes mellitus with diabetic chronic kidney disease; Z99.2 Dependence on renal dialysis; E78.5 Hyperlipidemia, unspecified; Z66 Do not resuscitate; J45.20 Mild intermittent asthma, uncomplicated; M1A.9XX0 Chronic gout, unspecified, without tophus (tophi); N40.0 Benign prostatic hyperplasia without lower urinary tract symptoms; D63.1 Anemia in chronic kidney disease; M89.8X9 Other specified disorders of bone, unspecified site; Z79.01 Long term (current) use of anticoagulants; G89.29 Other chronic pain; M54.9 Dorsalgia, unspecified; G47.30 Sleep apnea, unspecified; H91.90 Unspecified hearing loss, unspecified ear; G93.89 Other specified disorders of brain; I44.7 Left bundle-branch block, unspecified; K21.9 Gastro-esophageal reflux disease without esophagitis; Z86.010 Personal history of colon polyps; Z79.02 Long term (current) use of antithrombotics/antiplatelets; Z79.899 Other long term (current) drug therapy; Z85.828 Personal history of other malignant neoplasm of skin; Z86.73 Personal history of transient ischemic attack (TIA), and cerebral infarction without residual deficits; Z87.19 Personal history of other diseases of the digestive system; G31.89 Other specified degenerative diseases of nervous system; Z95.5 Presence of coronary angioplasty implant and graft; Z83.3 Family history of diabetes mellitus; Z96.1 Presence of intraocular lens; Z98.42 Cataract extraction status, left eye; Z98.41 Cataract extraction status, right eye; Z90.49 Acquired absence of other specified parts of digestive tract; Z86.16 Personal history of COVID-19; M45.9 Ankylosing spondylitis of unspecified sites in spine
CPT/HCPCS: 36415; 70450; 71045; 80053; 80061; 82140; 82607; 82746; 82803; 83735; 84443; 84484; 85025; 85610; 85730; 90935; 93005; 93880; 94640; 94760; 95816; 99285